=== PATIENT | male | born 1940 | race Caucasian/White ===

== ENCOUNTER 2016-12-31 10:32 | Inpatient (IN) | payer MEDICARE ==
--- NOTE | 2016-12-31 10:45 | ED Physician Chart ---
ED Chief Complaint/HPI - Patient Information Date Seen:: 12/31/16 Time Seen:: 10:30 Chief Complaint:: Fever History of Present Illness:: onset x 2 days of fever, irritability, cough, and congestion; no report of trauma, SIs; H/As, neck pain, C/P, SOB, Abd. Pain, A/N/V/D/C, chills, or urinary s/s Historian:: Patient, EMS Review:: Nurse's Note Reviewed, EMS run form Reviewed ED Review of Systems - Review of Systems General/Constitutional: Fever, Chills, No weight loss, No weakness, No diaphoresis, No edema, No loss of appetite Skin: No skin lesions, No rash, No bruising Head: No headache, No light-headedness Eyes: No loss of vision, No pain, No diplopia ENT: No earache, Nasal drainage, No sore throat, No tinnitus Neck: No neck pain, No swelling, No thyromegaly, No stiffness, No mass noted Cardio Vascular: No chest pain, No palpitations, No PND, No orthopnea, No edema Pulmonary: No SOB, Cough, No sputum, No wheezing GI: No nausea, No vomiting, No diarrhea, No pain, No melena, No hematochezia, No constipation, No hematemesis G/U: No dysuria, No frequency, No hematuria Musculoskeletal: No bone or joint pain, No back pain, No muscle pain Endocrine: No polyuria, No polydipsia Psychiatric: Prior psych history, Depression, Anxiety, No suicidal ideation, No homicidal ideation, No auditory hallucination, No visual hallucination Hematopoietic: No bruising, No lymphadenopathy Allergic/Immuno: No urticaria, No angioedema Neurological: No syncope, No focal symptoms, No weakness, No paresthesia, No headache, No seizure, No dizziness, No confusion, No vertigo ED Past Medical History - Past Medical History Obtainable: Yes Past Medical History: HTN, CAD, CVA/TIA, Dyslipidemia, Dementia Family History: Diabetes Melitus, HTN Social History: Non Smoker, No Alcohol, No Drug Use, Single, Care Facility Surgical History: None Psychiatricy History: Depression, Bipolar, Dementia Medication: Reviewed Family Medical History - Family Member Mother Living Status: ED Physical Exam - Physical Examination General/Constitutional: Awake, Well-developed, well-nourished, Alert, No distress, GCS 15, Non-toxic appearing, Ambulatory Head: Atraumatic Eyes: Lids, conjuctiva normal, PERRL, EOMI Skin: Nl inspection, No rash, No skin lesions, No ecchymosis, Well hydrated, No lymphadenopathy ENMT: External ears, nose nl, Nasal exam nl, Lips, teeth, gums nl Neck: Nontender, Full ROM w/o pain, No JVD, No nuchal rigidity, No bruit, No mass, No stridor Respiratory: Nl effort/Exclusion Other Respiratory comments:: Lungs: + Rales and Rhonchi Cardio Vascular: RRR, No murmur, gallop, rubs, NL S1 S2, Carotid/Femoral/Distal pulses equal bilaterally GI: No tenderness/rebounding/guarding, No organomegaly, No hernia, Normal BS's, Nondistended, No mass/bruits, No McBurney tenderness : No CVA tenderness Extremities: No tenderness or effusion, Full ROM, normal strength in all extremities, No edema, Normal digits & nails Neuro/Psych: Alert/oriented, DTR's symmetric, Normal sensory exam, Normal motor strength, Judgement/insight normal, Mood normal, Normal gait, No focal deficits Misc: Normal back, No paraspinal tenderness ED Labs/Radiology/EKG Results - Lab Results Comments:: H/H: 11.1/32.3; NA+: 129; BUN: 62; Cr:7.5; U/A: + Leukocytes - Radiology Results Comments:: CXR: + RML Infiltrate - EKG Interpretations EKG Time:: 10:53 Rate & Rhythm: 62; NSR Comments:: non-specific st-t changes ED Septic Shock - . Is Septic Shock (SBP<90, OR Lactate>4 mmol\L) present?: No ED Reassessment (Disposition) - Reassessment Reassessment Condition:: Improved - Diagnosis Diagnosis:: Dx: PNA; Fever; Sepsis; Anemia; Hyponatremia; Renal Failure; UTI - Aftercare/Follow up Instructions Aftercare/Follow-Up Instructions:: Counseled pt regarding lab results/diagnosis & need follow up, Counseled pt & family regarding lab results/diagnosis & need follow up - Patient Disposition Discharge/Transfer:: Acute Care w/in this hosp Accepting Physician:: Dr. Wiggins Time Called:: 1245 Time Responded:: 12:45 Admitted to:: Med/Surg Spoke to:: Dr. Wiggins Admitting Medical Physician:: Dr. Wiggins Condition at Disposition:: Stable, Improved
--- NOTE | 2016-12-31 11:04 | Diagnostic Imaging Report ---
Portable chest x-ray HISTORY: Pain The heart appears somewhat enlarged. Atherosclerotic calcification seen in the tortuous thoracic aorta. No acute focal pulmonary processes. Increased density in the paratracheal region of the chest is most likely related to brachiocephalic vessels. IMPRESSION: 1. No definite acute abnormalities 2. Cardiomegaly with atherosclerotic vascular changes
[2016-12-31] MEDS ORDERED: Levofloxacin 500mg/100mL 500 MG/100 ML BAG IV ONE ×2 (11:13→12:19)
[2016-12-31 11:17] LABS: % BASOPHILS 0.8 % (0.0-2.0); % LYMPHOCYTES 12.6 % (20.0-50.0); % MONOCYTES 10.2 % (2.0-10.0); % NEUTROPHILS 71.4 % (40.0-80.0); HEMATOCRIT 32.3 % (41.0-60); HEMOGLOBIN 11.1 gm/dL (12-16); MEAN CORPUSCULAR HEMOGLOBIN 31.3 pg (27.0-31.0); MEAN CORPUSCULAR HGB CONC 34.4 pg (28.0-36.0); MEAN PLATELET VOLUME 6.6 fl; NEUTROPHILE ABSOLUTE 5.1 Th/cmm (1.8-8.0); PLATELET COUNT 278 Th/cmm (150-400); RED BLOOD COUNT 3.55 Mil/cmm (3.80-5.80); RED CELL DISTRIBUTION WIDTH 12.2 % (11.5-20.0); WHITE BLOOD COUNT 7.2 Th/cmm (4.8-10.8)
[2016-12-31 11:32] LABS: INR 1.01 (0.5-1.4); PROTHROMBIN TIME (TEST) 10.5 SECONDS (9.5-11.5)
[2016-12-31 11:35] LABS: URINE BILIRUBIN NEGATIVE (NEGATIVE); URINE COLOR YELLOW; URINE GLUCOSE (UA) NEGATIVE (NEGATIVE)
[2016-12-31 11:35] LABS: ALB/GLOB RATIO 0.8 (1.0-1.8); ALKALINE PHOSPHATASE 116 U/L (34-104); ANION GAP 9.7 (7.0-16.0); BILIRUBIN,TOTAL 0.3 mg/dL (0.3-1.0); BUN - UREA NITROGEN 62 mg/dL (7-25); BUN/CREATININE RATIO 8.3; CALCIUM SERUM 9.6 mg/dL (8.6-10.3); CARBON DIOXIDE 19.2 mEq/L (21.0-31.0); CHLORIDE 105 mEq/L (98-107); CHOLESTEROL 110 mg/dL (<200); GLUCOSE 87 mg/dL (70-105); POTASSIUM SERUM 4.9 mEq/L (3.5-5.1); SGOT 9 U/L (13-39); SGPT/ALT 9 U/L (7-52); SODIUM SERUM 129 mEq/L (136-145); TRIGLYCERIDES 146 mg/dL (<150)
[2016-12-31 11:36] LABS: URINE BLOOD NEGATIVE (NEGATIVE); URINE KETONE NEGATIVE (NEGATIVE); URINE PH 5.5 (4.6 - 8.0); URINE PROTEIN 30 mg/dL (NEGATIVE); URINE UROBILINOGEN 0.2 E.U./dL (0.2 - 1.0)
[2016-12-31 11:39] LABS: URINE BACTERIA OCCASIONAL /hpf (NONE SEEN); URINE EPITHELIAL CELLS FEW /lpf (FEW); URINE RBC 0-2 /hpf (0-5)
[2016-12-31 11:41] LABS: CREATININE - SERUM 7.5 mg/dL (0.7-1.3)
[2016-12-31] MEDS: Sodium Chloride 0.9% 1,000 ML IV ONE ×2 (12:42→14:59)
[2016-12-31 13:48] VITALS: BP 154/101
[2016-12-31] MEDS ORDERED: Pneumococcal Vaccine 0.5 mL Vial IM ONE (13:59)
[2016-12-31] MEDS: Sodium Chloride 0.9% 1,000 ML IV SCH ×2 (15:01→22:15)
[2016-12-31] MEDS: INSULIN ASPART SLIDING SCALE 100 UNITS/ML UNIT SUBQ SCH ×2 (17:59→21:26)
[2017-01-01] MEDS: INSULIN ASPART SLIDING SCALE 100 UNITS/ML UNIT SUBQ SCH ×4 (08:00→22:06)
[2017-01-01] MEDS: Sodium Chloride 0.9% 1,000 ML IV SCH ×3 (08:00→22:05)
[2017-01-01] MEDS ORDERED: Pneumococcal Vaccine 0.5 mL Vial IM ONE (09:00)
[2017-01-01] MEDS: Atorvastatin Calcium 10 MG TAB PO SCH (10:03)
[2017-01-01] MEDS: Ferrous Sulfate 325 MG TAB PO SCH (10:03)
[2017-01-01] MEDS: Aspirin 81mg Chewable Tab PO SCH (10:03)
[2017-01-02] MEDS: Sodium Chloride 0.9% 1,000 ML IV SCH ×2 (06:03→19:02)
[2017-01-02 06:24] LABS: % EOSINOPHILS 4.9 % (0.0-5.0); % LYMPHOCYTES 14.2 % (20.0-50.0); % MONOCYTES 9.7 % (2.0-10.0); % NEUTROPHILS 70.2 % (40.0-80.0); HEMATOCRIT 29.4 % (41.0-60); HEMOGLOBIN 9.9 gm/dL (12-16); MEAN CELL VOLUME 92.4 fl (80-99); MEAN CORPUSCULAR HEMOGLOBIN 31.2 pg (27.0-31.0); MEAN CORPUSCULAR HGB CONC 33.8 pg (28.0-36.0); MEAN PLATELET VOLUME 6.3 fl; NEUTROPHILE ABSOLUTE 4.4 Th/cmm (1.8-8.0); PLATELET COUNT 228 Th/cmm (150-400); RED BLOOD COUNT 3.18 Mil/cmm (3.80-5.80); RED CELL DISTRIBUTION WIDTH 12.4 % (11.5-20.0); WHITE BLOOD COUNT 6.3 Th/cmm (4.8-10.8)
[2017-01-02 06:48] LABS: ALB/GLOB RATIO 0.9 (1.0-1.8); ALKALINE PHOSPHATASE 93 U/L (34-104); BILIRUBIN,TOTAL 0.3 mg/dL (0.3-1.0); BUN - UREA NITROGEN 59 mg/dL (7-25); BUN/CREATININE RATIO 8.3; CALCIUM SERUM 9.2 mg/dL (8.6-10.3); CHLORIDE 111 mEq/L (98-107); GLUCOSE 81 mg/dL (70-105); MAGNESIUM 1.8 mg/dL (1.9-2.7); PHOSPHOROUS 4.6 mg/dL (2.5-5.0); SGOT 7 U/L (13-39); SGPT/ALT 7 U/L (7-52)
[2017-01-02] MEDS: INSULIN ASPART SLIDING SCALE 100 UNITS/ML UNIT SUBQ SCH ×4 (06:50→21:14)
[2017-01-02 06:58] LABS: CREATININE - SERUM 7.1 mg/dL (0.7-1.3)
[2017-01-02 06:59] LABS: SODIUM SERUM 135 mEq/L (136-145)
[2017-01-02] MEDS: Ferrous Sulfate 325 MG TAB PO SCH (10:25)
[2017-01-02] MEDS: Atorvastatin Calcium 10 MG TAB PO SCH (10:28)
[2017-01-02] MEDS: Aspirin 81mg Chewable Tab PO SCH (10:28)
--- NOTE | 2017-01-02 14:24 | Consultation ---
DATE OF CONSULTATION: 01/01/2017 NEUROLOGY CONSULTATION HISTORY OF PRESENT ILLNESS: The patient is a 76-year-old. The patient is admitted because of complaints cough and congestion. Neurologically, the patient is having difficulty with swallowing. The patient with history of previous head injury. His baseline is that the patient has dysarthria. Confusion. Incontinence. The patient's right arm really ____, he has atrophy in the distal arm. Left arm, he is able to use. Legs are weak. He gets around with the wheelchair. He can ____ swallow, but they have difficulty with it. The patient has been complaining of cough and shortness of breath. PAST MEDICAL HISTORY: Hypertension, coronary artery disease, CVA in the past, dyslipidemia, and dementia. FAMILY HISTORY: Diabetes, hypertension. SURGERIES: None recently, he has a scar over the head. PSYCHIATRIC HISTORY: The patient with depression, bipolar, and dementia. MEDICATIONS: As per reconciliation. REVIEW OF SYSTEMS: Twelve-point negative except for above. PHYSICAL EXAMINATION: VITAL SIGNS: Temperature 98.4, blood pressure 130/70, pulse is 74. NECK: Supple. No neck bruits. HEART: Sounds S1 and S2. LUNGS: Clear. NEUROLOGIC: The patient is awake. The patient's caregiver is by the bedside. The patient gives me his name, his age. He did not know the day, he thought this was November instead of December. He does not know the year. The patient is able to name simple objects such as pen and glasses. CRANIAL: Pupils react. He sees on both sides. Face, I do not see any marked paralysis on one side or the other. Motor, really very limited movement of the right arm. Atrophy in the hand. The patient's left arm, he would lift it up, though increased tone. The patient's legs, he has got weakness in both legs, increased tone. Reflexes about 1+, somewhat more on the right arm. Knees are about -1-1. Ankles, difficult to get bilateral Babinski. ASSESSMENT: 1. Cough. Rule out underlying pneumonia. 2. Dysphagia. Recommend speech, swallowing assessment. 3. Urinary tract infection. The patient with previous impairment with cognitive impairment and physical disability with right arm nonfunctioning. The patient's leg weakness is longstanding. Wheelchair. PLAN: CT scan of the head. Swallowing assessment. [facility]# [id number]
--- NOTE | 2017-01-02 14:56 | General Progress Note ---
Subjective - Review of Systems Service Date: 01/02/17 Objective - Results Result Diagrams: 01/02/17 06:00 01/02/17 06:00 Recent Labs: Laboratory Last Values WBC 6.3 Th/cmm (4.8-10.8) 01/02/17 06:00 Corrected WBC (auto) Cancelled 01/02/17 06:00 RBC 3.18 Mil/cmm (3.80-5.80) L 01/02/17 06:00 Hgb 9.9 gm/dL (12-16) L 01/02/17 06:00 Hct 29.4 % (41.0-60) L 01/02/17 06:00 MCV 92.4 fl (80-99) 01/02/17 06:00 MCH 31.2 pg (27.0-31.0) H 01/02/17 06:00 MCHC Differential 33.8 pg (28.0-36.0) 01/02/17 06:00 RDW 12.4 % (11.5-20.0) 01/02/17 06:00 Plt Count 228 Th/cmm (150-400) 01/02/17 06:00 MPV 6.3 fl 01/02/17 06:00 Neutrophils % 70.2 % (40.0-80.0) 01/02/17 06:00 Lymphocytes % 14.2 % (20.0-50.0) L 01/02/17 06:00 Monocytes % 9.7 % (2.0-10.0) 01/02/17 06:00 Eosinophils % 4.9 % (0.0-5.0) 01/02/17 06:00 Basophils % 1.0 % (0.0-2.0) 01/02/17 06:00 Smear Path Review Cancelled 01/02/17 06:00 PT 10.5 SECONDS (9.5-11.5) 12/31/16 11:05 INR 1.01 (0.5-1.4) 12/31/16 11:05 PTT (Actin FS) 26.9 SECONDS (26.0-38.0) 12/31/16 11:05 Sodium 135 mEq/L (136-145) L 01/02/17 06:00 Potassium 5.0 mEq/L (3.5-5.1) 01/02/17 06:00 Chloride 111 mEq/L (98-107) H 01/02/17 06:00 Carbon Dioxide 17.0 mEq/L (21.0-31.0) L 01/02/17 06:00 Anion Gap 12.0 (7.0-16.0) 01/02/17 06:00 BUN 59 mg/dL (7-25) H 01/02/17 06:00 Creatinine 7.1 mg/dL (0.7-1.3) H* 01/02/17 06:00 Est GFR ( Amer) TNP 01/02/17 06:00 Est GFR (Non-Af Amer) TNP 01/02/17 06:00 BUN/Creatinine Ratio 8.3 01/02/17 06:00 Glucose 81 mg/dL (70-105) 01/02/17 06:00 POC Glucose 93 MG/DL (70 - 105) 01/02/17 12:07 Hemoglobin A1c % 5.2 % (4.0-6.0) 01/02/17 06:00 Whole Bld Lactic Acid 1.19 mmol/L (0.60-1.99) 12/31/16 11:05 Calcium 9.2 mg/dL (8.6-10.3) 01/02/17 06:00 Phosphorus 4.6 mg/dL (2.5-5.0) 01/02/17 06:00 Magnesium 1.8 mg/dL (1.9-2.7) L 01/02/17 06:00 Total Bilirubin 0.3 mg/dL (0.3-1.0) 01/02/17 06:00 AST 7 U/L (13-39) L 01/02/17 06:00 ALT 7 U/L (7-52) 01/02/17 06:00 Alkaline Phosphatase 93 U/L (34-104) 01/02/17 06:00 Creatine Kinase 38 U/L (30-223) 12/31/16 11:05 Troponin I 0.01 ng/mL (0.01-0.05) 12/31/16 11:05 B-Natriuretic Peptide 76.5 pg/mL (5.0-100.0) 12/31/16 11:05 Total Protein 6.2 gm/dL (6.0-8.3) 01/02/17 06:00 Albumin 2.9 gm/dL (4.2-5.5) L 01/02/17 06:00 Globulin 3.3 gm/dL 01/02/17 06:00 Albumin/Globulin Ratio 0.9 (1.0-1.8) L 01/02/17 06:00 Triglycerides 146 mg/dL (<150) 12/31/16 11:05 Cholesterol 110 mg/dL (<200) 12/31/16 11:05 LDL Cholesterol Direct 54 mg/dL (75-193) L 12/31/16 11:05 HDL Cholesterol 32 mg/dL (23-92) 12/31/16 11:05 Urine Source MIDSTREAM 12/31/16 11:25 Urine Color YELLOW 12/31/16 11:25 Urine Clarity CLEAR (CLEAR) 12/31/16 11:25 Urine pH 5.5 (4.6 - 8.0) 12/31/16 11:25 Ur Specific [place] 1.015 (1.005-1.030) 12/31/16 11:25 Urine Protein 30 mg/dL (NEGATIVE) H 12/31/16 11:25 Urine Glucose (UA) NEGATIVE mg/dL (NEGATIVE) 12/31/16 11:25 Urine Ketones NEGATIVE mg/dL (NEGATIVE) 12/31/16 11:25 Urine Blood NEGATIVE (NEGATIVE) 12/31/16 11:25 Urine Nitrate NEGATIVE (NEGATIVE) 12/31/16 11:25 Urine Bilirubin NEGATIVE (NEGATIVE) 12/31/16 11:25 Urine Ictotest NEGATIVE (NEGATIVE) 12/31/16 11:25 Urine Urobilinogen 0.2 E.U./dL (0.2 - 1.0) 12/31/16 11:25 Ur Leukocyte Esterase TRACE (NEGATIVE) H 12/31/16 11:25 Urine RBC 0-2 /hpf (0-5) H 12/31/16 11:25 Urine WBC 2-5 /hpf (0-5) H 12/31/16 11:25 Ur Epithelial Cells FEW /lpf (FEW) 12/31/16 11:25 Urine Bacteria OCCASIONAL /hpf (NONE SEEN) 12/31/16 11:25 Urine Mucus FEW /lpf (FEW) 12/31/16 11:25 - Physical Exam Vitals and I&O: Vital Signs Temp 96.9 F 11/10/17 12:28 Pulse 59 01/02/17 12:28 Resp 16 01/02/17 12:28 BP 154/82 01/02/17 12:28 Pulse Ox 98 01/02/17 12:28 Intake & Output 01/01/17 01/02/17 01/02/17 18:59 06:59 18:59 Intake Total 960 1002.083 Output Total 100 Balance 860 1002.083 Weight (lbs) 64.138 kg 64.127 kg Intake: Intake, IV Amount 1002.083 Sodium Chloride 0.9% 1, 1002.083 000 ml @ 125 mls/hr IV . Q8H [facility] Rx#:[id number] Oral 960 Output: Gastric Drainage 100 Other: # Voids 5 3 # Bowel Movements 1 Active Medications: Current Medications Aspirin (Aspirin Chewable) 81 mg PO DAILY [facility] Stop: 03/02/17 08:59 Last Admin: 01/02/17 10:28 Dose: 81 mg Atorvastatin Calcium (Lipitor) 10 mg PO DAILY [facility] PRN Reason: Protocol Stop: 03/02/17 08:59 Last Admin: 01/02/17 10:28 Dose: 10 mg Citalopram Hydrobromide (Celexa) 20 mg PO DAILY [facility] PRN Reason: Protocol Stop: 03/02/17 08:59 Last Admin: 01/02/17 10:28 Dose: 20 mg Donepezil HCl (Aricept) 5 mg PO DAILY [facility] Stop: 03/02/17 08:59 Last Admin: 01/02/17 10:25 Dose: 5 mg Ferrous Sulfate (Iron) 325 mg PO DAILY [facility] Stop: 03/02/17 08:59 Last Admin: 01/02/17 10:25 Dose: 325 mg Finasteride (Proscar) 5 mg PO DAILY [facility] PRN Reason: Protocol Stop: 03/02/17 08:59 Last Admin: 01/02/17 10:28 Dose: 5 mg Folic Acid (Folate) 1 mg PO DAILY [facility] Stop: 03/02/17 08:59 Last Admin: 01/02/17 10:25 Dose: 1 mg Sodium Chloride (Nacl 0.9%) 1,000 mls @ 125 mls/hr IV .Q8H [facility] Stop: 03/01/17 14:59 Last Infusion: 01/02/17 06:06 Dose: 125 mls/hr Insulin Aspart (Novolog Insulin Sliding Scale) 0 units SUBQ ACHS [facility] PRN Reason: Protocol Stop: 03/01/17 16:29 Last Admin: 01/02/17 12:10 Dose: Not Given Metoprolol Tartrate (Lopressor) 25 mg PO HS [facility] Stop: 03/01/17 20:59 Last Admin: 01/02/17 10:27 Dose: 25 mg Olanzapine (Zyprexa) 2.5 mg PO QPM [facility] PRN Reason: Protocol Stop: 03/02/17 16:59 Last Admin: 01/01/17 17:45 Dose: 2.5 mg Tamsulosin HCl (Flomax) 0.4 mg PO DAILY [facility] Stop: 03/02/17 08:59 Last Admin: 01/02/17 10:28 Dose: 0.4 mg General: Alert HEENT: PERRLA Neck: Supple Cardiovascular: Regular rate Abdomen: Bowel sounds, Soft Assessment/Plan - Plan Plan: ultrasound ordered yesterday not done yet await study result metabolic acidosis treated with sodium bicarbobnate yesterday Nutritional Asmnt/Malnutr-PDOC - Dietary Evaluation Malnutrition Findings (Please click <Entered> for more info): Nutritional Asmnt/Malnutrition Start: 01/01/17 17: 40 Text: Status: Complete Freq: Document 01/01/17 17:40 DALLIN (Rec: 01/01/17 17:55 DALLIN [id number]) Nutritional Asmnt/Malnutrition Patient General Information Nutritional Screening High Risk Diagnosis renal failure, hyponatremia Pertinent Medical Hx/Surgical Hx HTN, CAD, CVA/TIA, dyslipidemia, dementia Subjective Information pt seen alert, hard to communicate during the time of visit. pt reported appetite is good, comsumed 50% of breakfast this morning. Performed physical exam, no fat/muscle wasting noted. UBW 170lb, pt stated no wt loss noted. Per nurse notes, possible dialysis. Current Diet Order/ Nutrition Support low sodium 2 gm Pertinent Medications Iron, Folate, novolog, Nacl IV , Pertinent Labs POC 82-95 since adm 12/31: Na 129L, BUN 62H, Cr 7. 5H, AST 9L, Alb 3.5L Nutritional Hx/Data Height 1.75 m Height (Calculated Centimeters) 175.3 Current Weight (lbs) 64.138 kg Weight (Calculated Kilograms) 64.1 Weight (Calculated Grams) 16389.0 Usual body Weight (lbs) 170 % Usual Body Weight 83 [place] Body Weight 160 % [place] Body Weight 88 Body Mass Index (BMI) 20.8 Weight Status Approriate GI Symptoms GI Symptoms None Difficult in: None Usual diet at home pt stated he eats outside food , he eats vegetables, dairy products and meat. Skin Integrity/Comment: intact Estimated Nutritional Goals Calories/Kcals/Kg 25-30 based on IBW Kcals Calculated 3543-0917 Protein g/k.8 based on IBW, monitor renal labs Protein Calculated 58 Nutritional Problem 1. Problem Problem altered nutrition related lab values Etiology dx of renal failure, possible need for dialysis Signs/Symptoms: BUN 62H, Cr 7.5H Malnutrition Alert Protein-Calorie Malnutrition N/A Is there a minimum of two criteria No selected? Query Text:Check all the applicable criteria. A minimum of two criteria are recommended for diagnosis of either severe or non-severe malnutrition. Intervention/Recommendation Comments 1. continue with current diet order. if renal labs not improved and pt not on dialysis, will consider change to renal diet. 2. monitor PO intake, wt weekly, labs, skin 3. F/U as high risk in 2-3 days, 01/03-01/04 Expected Outcomes/Goals Expected Outcomes/Goals 1. PO intake >75% to meet nutrition needs 2. labs to improve 3. wt stability, skin to remain intact
--- NOTE | 2017-01-02 15:29 | Diagnostic Imaging Report ---
Head CT without intravenous contrast Indication: CVA Comparison: None Technique: Axial images were obtained from the vertex to the skull base without IV contrast. Coronal reconstructions were made. Total DLP: 774, CTDI41 FINDINGS: Images of the brain obtained without contrast demonstrate no evidence of an acute hemorrhage. Moderate supratentorial white matter disease is noted greatest within the periventricular regions. Old lacunar infarct of the left basal ganglia is noted. The ventricles and basal cisterns are patent. No mass effect or midline shift. Atherosclerosis is noted. Small mucous retention cysts versus polyps of the maxillary sinuses are noted. IMPRESSION: No evidence of acute intracranial hemorrhage. Moderate supratentorial white matter disease which is nonspecific and may be due to chronic microvessel ischemia. Old lacunar infarct of the left basal ganglia is noted. If there is continued clinical concern for acute CVA, MRI may be obtained for further assessment. Atrophy. Atherosclerotic vascular disease. Mild sinus disease.
--- NOTE | 2017-01-02 16:21 | Consultation ---
DATE OF CONSULTATION: 01/01/2017 JUSTIFICATION FOR ADMISSION: Psych eval. HISTORY OF PRESENT ILLNESS: A 76-year-old male noted to have a fever, irritability, cough, constipation. On [id number], AO to name, place. He has a general idea why he is here, he knows the month, the year, but not the date. Denies depression. Does have some anxiety about being in the hospital. He is upset because he is in the hospital. Okay sleep, okay appetite. States he is hopefully wants to get better and wants to leave soon. PAST PSYCHIATRIC HISTORY: Denies suicide history. FAMILY HISTORY: Noncontributory. SOCIAL HISTORY: Living in a [facility]. He has a girlfriend. Not , no kids, no drugs. He states he lives in [place]. MEDICATIONS: Reviewed. MENTAL STATUS EXAMINATION: Stated age. Fair eye contact. Speech within normal limits, somewhat slowed. Mood colon "okay." Affect flat. Thought processes were grossly linear and engaged, but slowed. No SI, no HI, no psychotic symptoms. Insight and judgment seem reasonable. PROVISIONAL DIAGNOSIS: Adjustment disorder with depressed mood, anxiety, dementia per documentation, he is somewhat slow to respond, but fairly well oriented to name, place, situation, year, month. This dementia diagnosis will need to be further confirmed. Recommend further testing. Under medical, please see full H and P. RECOMMENDATIONS AND PLAN: Continue to monitor and follow up. The patient is fairly stable, pleasant, and engaged. There may be a history of mood disorder as well as behaviors, associated with his dementia diagnosis. He is on Aricept, a low dose of Zyprexa, and Celexa, although the patient is denying any overt depressive symptoms at this time. No 5150 criteria. JOB# [id number]
--- NOTE | 2017-01-02 16:47 | History & Physical ---
ADMIT DATE: 12/31/[address] Wiggins. CHIEF COMPLAINT: Fever. HISTORY OF PRESENT ILLNESS: This is a 76-year-old male who was brought here to [facility] for 2-day history of fever and productive cough associated with congestion. The patient is now admitted to the med/surg unit. PAST MEDICAL HISTORY: Hypertension, CAD, CVA, TIA, dyslipidemia, and dementia. SOCIAL HISTORY: The patient is a skilled nursing resident. MEDICATIONS: Please see medication reconciliation. REVIEW OF SYSTEMS: Unable to obtain. PHYSICAL EXAMINATION: GENERAL: The patient is well developed, well nourished, in no acute distress. VITAL SIGNS: Temperature 96.9, heart rate 59, blood pressure 154/82, respirations 16, O2 98%. HEENT: Head: Normocephalic, atraumatic. NECK: Supple. No mass. LUNGS: Clear bilaterally. HEART: Regular rhythm. ABDOMEN: Soft, nontender. LABORATORY DATA: WBC 6.3, H and H 10.9 and 29.4, platelets of 228. Sodium 135, potassium 5.0, chloride 111, carbon dioxide 17.0, BUN 59, creatinine 7.1. Albumin of 2.9. ASSESSMENT: Hyponatremia, acute renal failure, severe protein-calorie malnutrition, acute urinary tract infection, hypertension, coronary artery disease, history of cerebrovascular accident, dyslipidemia, and dementia. PLAN: The patient to be admitted to the med/surg unit. We will get Neurology on the case. We will get speech evaluation. We will get ultrasound of the renal. We will also get Nephrology on the case. We will continue to monitor this patient. JOB# [id number]
[2017-01-03] MEDS: Sodium Chloride 0.9% 1,000 ML IV SCH ×2 (03:16→11:35)
--- NOTE | 2017-01-03 04:09 | Consultation ---
DATE OF CONSULTATION: 01/02/2017 IDENTIFYING INFORMATION: The patient is a 76-year-old male. HISTORY OF PRESENT ILLNESS: The patient was admitted because of irritability. According to the records, he has been irritable, but no reports of trauma. No suicidal ideation, no homicidal ideation. When I talked to him, he was confused. He is unable to tell me the date. He believes he is 78 years of age. He denies any substance abuse. The patient also has a fever. PAST PSYCHIATRIC HISTORY: The patient denies any prior psychiatric treatment. He denies any prior suicide attempt. He denies ever seeing a psychiatrist or any depression. MEDICAL HISTORY: As per medical doctor. The patient has a history of hypertension, coronary artery disease, CVA, TIA, dyslipidemia, dementia, hypertension, with family history of diabetes mellitus and hypertension. FAMILY AND SOCIAL HISTORY: The patient is . He has no children. 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 Unable to give me more exact details. He reports no family psychotic disorder; however, is not a reliable historian. MENTAL STATUS EXAMINATION: Appropriately dressed, not very well groomed. His affect is constricted. His thoughts are concrete. His speech is clear. He is oriented to person, but he believes he is 78 when he is 76, unable to tell me the date. He is not sure exactly why he is here. His long-term memory is okay, remembers his age. Recent memory, he is not sure why he is here. Apparently, he has a history of depression, being on Celexa, his insight and judgment. He denies any intent to harm self or anybody. Denies any hallucination or paranoia. Insight and judgment is impaired. IMPRESSION: AXIS I: Depression, also mood disorder, not otherwise specified, dementia. MEDICAL DIAGNOSES: Deferred to the medical doctor. Recommend to continue the Celexa, Aricept. The patient also was on Remeron 15 that was discontinued and Zyprexa 2.5 mg at bedtime. I would recommend that he continue his medication, will adjust medication as needed. Thank you very much for allowing me to participate in the care of this most interesting gentleman. JOB# [id number]
--- NOTE | 2017-01-03 05:42 | Consultation ---
DATE OF CONSULTATION: 01/01/2017 RENAL CONSULTATION NOTE HISTORY OF PRESENT ILLNESS: This is a 76-year-old male who is a resident of assisted living facility, was subsequently sent to the Emergency Room because of fever of 2 days duration with episodes of coughing. This episode started approximately 2 days ago and becoming more ____ with fever, becoming more irritable coughing and congestion. There is no report on history of chills or urinary symptoms other than urinary frequency and urgency, weak urinary hesitancy and incontinence. He was seen in the Emergency Room. Impression on evaluation in the Emergency Room is pneumonia, fever, sepsis, anemia, hyponatremia and renal failure. Thus the patient was subsequently admitted and referred here for consultation. PAST MEDICAL HISTORY: He had a history of hypertension, coronary artery disease, previous CVA with bulbar symptoms, transient ischemic attack, dyslipidemia, diabetes, and dementia with bipolar disorder. Unclear about the history or the duration of hypertension in this patient, although we are aware that this patient is on medications for his blood pressure in the form of metoprolol 25 mg once daily. He is also on tamsulosin 0.4 mg capsule twice daily, atorvastatin 10 mg daily, citalopram (Celexa) 20 mg daily, olanzapine 2.5 mg daily, and pantoprazole 40 mg 1 tablet daily. Rest of the medications are sleeping pill with Remeron 15 mg, aspirin 81 mg daily and folic acid 1 mg daily, and ferrous sulfate 325 mg 2 times a day. He is on dietary restrictions with regards to his diabetes. He is not taking any medications or oral hypoglycemics or he is not taking any kind of insulin administration. Diabetes is adequately controlled with diet at the present time. LABORATORY DATA: Laboratories are reviewed. His white blood cell count of 7200, hemoglobin 11.2, hematocrit of 32.3, and platelet count of 276,000. PT and INR are within normal range. BUN of this patient is 62, creatinine of 7.5. Sodium 129, potassium 4.9, chloride is 105, CO2 of 19.2, anion gap of 9.7. His glucose is 87 which has been persistently 80s and 90s below. Calcium is 9.6, total bilirubin is 0.3 with AST of 9, alkaline phosphatase of 116, and CK of 38. Troponins are negative. BNP is 76.5. Total protein 7.7, albumin is 3.5, and globulin is 4.2. Triglycerides and cholesterol are normal. HDL is relatively lower at 32. IMPRESSION: Renal failure in this patient, unclear, chronic or acute, although there is a history of this patient having renal insufficiency documenting from one dictation of this patient on this hospital admission. The patient also admits that he has been mentioned to have some degree of renal insufficiency in the past. His serum creatinine is elevated at this point, significantly ____ of 6.6 and 7.5 with a BUN of 62, sodium 129, potassium 4.9, chloride of 105, CO2 of 19. 2. Rule out possibility of obstructive uropathy with the patient having symptoms and been on medications for prostatic enlargement issue. 3. Anemia of chronic kidney disease. 4. Hypoalbuminemia. 5. Malnutrition. 6. Chronic anemia, most recent hemoglobin and hematocrit of 11.1 and 32.3. PLAN: At this time, we will get phosphate and magnesium in this patient. Albumin and creatinine ratio in the urine. Random urinary albumin in this patient. We will have renal ultrasound ruling out the possibility of obstructive uropathy and depending on the results of further studies at the present time, we will discuss plan of care with the family and the patient subsequently. The patient states that he has an uncle who is living with him which I am not sure at this point because the next of kin ____ the present time is an store administrator of the facility that this patient is staying, Chantal Grimaldo #[phone]. We will verify the durable power of bankruptcy attorney ____ this patient during this hospital stay. JOB# [id number]
[2017-01-03 06:47] LABS: ANION GAP 12.2 (7.0-16.0); BUN - UREA NITROGEN 55 mg/dL (7-25); BUN/CREATININE RATIO 8.1; CALCIUM SERUM 8.7 mg/dL (8.6-10.3); CARBON DIOXIDE 14.9 mEq/L (21.0-31.0); CHLORIDE 116 mEq/L (98-107); GLUCOSE 71 mg/dL (70-105); POTASSIUM SERUM 5.1 mEq/L (3.5-5.1); SODIUM SERUM 138 mEq/L (136-145)
[2017-01-03 08:08] LABS: IRON SATURATION 40 % (15-55); TIBC (LC) 151 ug/dL (250-450); UIBC 91 ug/dL (111-343)
[2017-01-03 08:20] LABS: CREATININE - SERUM 6.8 mg/dL (0.7-1.3)
--- NOTE | 2017-01-03 08:27 | Diagnostic Imaging Report ---
Exam: Renal ultrasound. HISTORY obstructive uropathy. Findings: Real-time ultrasound examination of the kidneys performed multiple planes. Right kidney measures 12.1 x 6 x 5.2 cm diameter with the mild hydronephrosis. There is a questionable hypoechoic structure in the right renal pelvis. CT examination recommended. Left kidney measures 10.0 x 5.4 x 6 cm diameter contains a 4.4 cm left upper renal pole cyst. There is no evidence of obstructive uropathy or nephrolithiasis. Urinary bladder is contracted. IMPRESSION: 1. Extremely limited examination due to patient inability to cooperate. 2. Hydronephrosis of right kidney with a question of hypoechoic structure in the right renal pelvis. 3. Left upper renal pole cyst measuring 4.[address] examination of the abdomen is recommended.
[2017-01-03] MEDS: Ferrous Sulfate 325 MG TAB PO SCH (08:44)
[2017-01-03] MEDS: Atorvastatin Calcium 10 MG TAB PO SCH (08:44)
[2017-01-03] MEDS: Aspirin 81mg Chewable Tab PO SCH (08:44)
[2017-01-03] MEDS: INSULIN ASPART SLIDING SCALE 100 UNITS/ML UNIT SUBQ SCH ×4 (08:46→21:16)
--- NOTE | 2017-01-03 09:02 | Progress Notes ---
DATE: 01/02/2017 NEUROLOGY PROGRESS NOTE SUBJECTIVE: The patient in bed. Awake, alert, and talking more. The patient is interacting more. No seizure. Cough is somewhat less. Swallowing bit better. OBJECTIVE: VITAL SIGNS: Temperature 98.4, blood pressure 130/70, and pulse 74. NECK: Supple. No neck bruits. HEART: Sounds S1 and S2. LUNGS: Clear. NEUROLOGIC: Awake. Dysarthria. On and off dysphagia. INVESTIGATIONS: The patient's CT scan of the head is pending. ASSESSMENT: 1. Dysphagia. 2. Cough. 3. The patient's history of possible pneumonia. 4. Hypernatremia. 5. Urinary tract infection. PLAN: CT scan of the head. Further workup depending on the progress. JOB# [id number]
[2017-01-03] MEDS ORDERED: Sodium Chloride 0.45% 1,000 ML IV SCH (17:45)
--- NOTE | 2017-01-03 17:56 | General Progress Note ---
Subjective - Review of Systems Service Date: 01/03/17 Events since last encounter: continued urine urgency but generating urine no complaints Objective - Results Result Diagrams: 01/02/17 06:00 01/03/17 06:05 Recent Labs: Laboratory Last Values WBC 6.3 Th/cmm (4.8-10.8) 01/02/17 06:00 Corrected WBC (auto) Cancelled 01/02/17 06:00 RBC 3.18 Mil/cmm (3.80-5.80) L 01/02/17 06:00 Hgb 9.9 gm/dL (12-16) L 01/02/17 06:00 Hct 29.4 % (41.0-60) L 01/02/17 06:00 MCV 92.4 fl (80-99) 01/02/17 06:00 MCH 31.2 pg (27.0-31.0) H 01/02/17 06:00 MCHC Differential 33.8 pg (28.0-36.0) 01/02/17 06:00 RDW 12.4 % (11.5-20.0) 01/02/17 06:00 Plt Count 228 Th/cmm (150-400) 01/02/17 06:00 MPV 6.3 fl 01/02/17 06:00 Neutrophils % 70.2 % (40.0-80.0) 01/02/17 06:00 Lymphocytes % 14.2 % (20.0-50.0) L 01/02/17 06:00 Monocytes % 9.7 % (2.0-10.0) 01/02/17 06:00 Eosinophils % 4.9 % (0.0-5.0) 01/02/17 06:00 Basophils % 1.0 % (0.0-2.0) 01/02/17 06:00 Smear Path Review Cancelled 01/02/17 06:00 PT 10.5 SECONDS (9.5-11.5) 12/31/16 11:05 INR 1.01 (0.5-1.4) 12/31/16 11:05 PTT (Actin FS) 26.9 SECONDS (26.0-38.0) 12/31/16 11:05 Sodium 138 mEq/L (136-145) 01/03/17 06:05 Potassium 5.1 mEq/L (3.5-5.1) 01/03/17 06:05 Chloride 116 mEq/L (98-107) H 01/03/17 06:05 Carbon Dioxide 14.9 mEq/L (21.0-31.0) L 01/03/17 06:05 Anion Gap 12.2 (7.0-16.0) 01/03/17 06:05 BUN 55 mg/dL (7-25) H 01/03/17 06:05 Creatinine 6.8 mg/dL (0.7-1.3) H* 01/03/17 06:05 Est GFR ( Amer) TNP 01/03/17 06:05 Est GFR (Non-Af Amer) TNP 01/03/17 06:05 BUN/Creatinine Ratio 8.1 01/03/17 06:05 Glucose 71 mg/dL (70-105) 01/03/17 06:05 POC Glucose 81 MG/DL (70 - 105) 01/03/17 16:27 Hemoglobin A1c % 5.2 % (4.0-6.0) 01/02/17 06:00 Whole Bld Lactic Acid 1.19 mmol/L (0.60-1.99) 12/31/16 11:05 Calcium 8.7 mg/dL (8.6-10.3) 01/03/17 06:05 Phosphorus 4.6 mg/dL (2.5-5.0) 01/02/17 06:00 Magnesium 1.8 mg/dL (1.9-2.7) L 01/02/17 06:00 Iron 60 ug/dL (38-169) 01/02/17 06:00 TIBC 151 ug/dL (250-450) L 01/02/17 06:00 Iron Saturation 40 % (15-55) 01/02/17 06:00 Unsaturated IBC 91 ug/dL (111-343) L 01/02/17 06:00 Total Bilirubin 0.3 mg/dL (0.3-1.0) 01/02/17 06:00 AST 7 U/L (13-39) L 01/02/17 06:00 ALT 7 U/L (7-52) 01/02/17 06:00 Alkaline Phosphatase 93 U/L (34-104) 01/02/17 06:00 Creatine Kinase 38 U/L (30-223) 12/31/16 11:05 Troponin I 0.01 ng/mL (0.01-0.05) 12/31/16 11:05 B-Natriuretic Peptide 76.5 pg/mL (5.0-100.0) 12/31/16 11:05 Total Protein 6.2 gm/dL (6.0-8.3) 01/02/17 06:00 Albumin 2.9 gm/dL (4.2-5.5) L 01/02/17 06:00 Globulin 3.3 gm/dL 01/02/17 06:00 Albumin/Globulin Ratio 0.9 (1.0-1.8) L 01/02/17 06:00 Triglycerides 146 mg/dL (<150) 12/31/16 11:05 Cholesterol 110 mg/dL (<200) 12/31/16 11:05 LDL Cholesterol Direct 54 mg/dL (75-193) L 12/31/16 11:05 HDL Cholesterol 32 mg/dL (23-92) 12/31/16 11:05 Urine Source MIDSTREAM 12/31/16 11:25 Urine Color YELLOW 12/31/16 11:25 Urine Clarity CLEAR (CLEAR) 12/31/16 11:25 Urine pH 5.5 (4.6 - 8.0) 12/31/16 11:25 Ur Specific [place] 1.015 (1.005-1.030) 12/31/16 11:25 Urine Protein 30 mg/dL (NEGATIVE) H 12/31/16 11:25 Urine Glucose (UA) NEGATIVE mg/dL (NEGATIVE) 12/31/16 11:25 Urine Ketones NEGATIVE mg/dL (NEGATIVE) 12/31/16 11:25 Urine Blood NEGATIVE (NEGATIVE) 12/31/16 11:25 Urine Nitrate NEGATIVE (NEGATIVE) 12/31/16 11:25 Urine Bilirubin NEGATIVE (NEGATIVE) 12/31/16 11:25 Urine Ictotest NEGATIVE (NEGATIVE) 12/31/16 11:25 Urine Urobilinogen 0.2 E.U./dL (0.2 - 1.0) 12/31/16 11:25 Ur Leukocyte Esterase TRACE (NEGATIVE) H 12/31/16 11:25 Urine RBC 0-2 /hpf (0-5) H 12/31/16 11:25 Urine WBC 2-5 /hpf (0-5) H 12/31/16 11:25 Ur Epithelial Cells FEW /lpf (FEW) 12/31/16 11:25 Urine Bacteria OCCASIONAL /hpf (NONE SEEN) 12/31/16 11:25 Urine Mucus FEW /lpf (FEW) 12/31/16 11:25 - Physical Exam Vitals and I&O: Vital Signs Temp 97.4 F 01/03/17 15:49 Pulse 61 01/03/17 15:49 Resp 18 01/03/17 15:49 BP 104/69 01/03/17 15:49 Pulse Ox 97 01/03/17 15:49 Intake & Output 01/02/17 01/03/17 01/03/17 18:59 06:59 18:59 Intake Total 993.75 1250 1000 Balance 993.75 1250 1000 Weight (lbs) 63.73 kg Intake: Intake, IV Amount 993.75 1000 1000 Sodium Chloride 0.9% 1, 993.75 1000 1000 000 ml @ 125 mls/hr IV . Q8H [facility] Rx#:[id number] Oral 250 Other: Stool Characteristics Soft Soft Formed Active Medications: Current Medications Aspirin (Aspirin Chewable) 81 mg PO DAILY [facility] Stop: 03/02/17 08:59 Last Admin: 01/03/17 08:44 Dose: 81 mg Atorvastatin Calcium (Lipitor) 10 mg PO DAILY [facility] PRN Reason: Protocol Stop: 03/02/17 08:59 Last Admin: 01/03/17 08:44 Dose: 10 mg Citalopram Hydrobromide (Celexa) 20 mg PO DAILY [facility] PRN Reason: Protocol Stop: 03/02/17 08:59 Last Admin: 01/03/17 08:44 Dose: 20 mg Donepezil HCl (Aricept) 5 mg PO DAILY [facility] Stop: 03/02/17 08:59 Last Admin: 01/03/17 08:43 Dose: 5 mg Ferrous Sulfate (Iron) 325 mg PO DAILY [facility] Stop: 03/02/17 08:59 Last Admin: 01/03/17 08:44 Dose: 325 mg Finasteride (Proscar) 5 mg PO DAILY [facility] PRN Reason: Protocol Stop: 03/02/17 08:59 Last Admin: 01/03/17 08:43 Dose: 5 mg Folic Acid (Folate) 1 mg PO DAILY [facility] Stop: 03/02/17 08:59 Last Admin: 01/03/17 08:43 Dose: 1 mg Sodium Chloride (Nacl 0.9%) 1,000 mls @ 125 mls/hr IV .Q8H [facility] Stop: 03/01/17 14:59 Last Admin: 01/03/17 11:35 Dose: 125 mls/hr Sodium Chloride (Nacl 0.45%) 1,000 mls @ 125 mls/hr IV .Q8H [facility] Stop: 03/04/17 17:44 Sodium Bicarbonate 50 meq/ (Sodium Chloride) 1,050 mls @ 125 mls/hr IV .Q8H24M [facility] Stop: 03/04/17 17:59 Insulin Aspart (Novolog Insulin Sliding Scale) 0 units SUBQ ACHS [facility] PRN Reason: Protocol Stop: 03/01/17 16:29 Last Admin: 01/03/17 16:30 Dose: Not Given Metoprolol Tartrate (Lopressor) 25 mg PO HS [facility] Stop: 03/01/17 20:59 Last Admin: 01/02/17 21:13 Dose: 25 mg Olanzapine (Zyprexa) 2.5 mg PO QPM [facility] PRN Reason: Protocol Stop: 03/02/17 16:59 Last Admin: 01/03/17 16:51 Dose: 2.5 mg Tamsulosin HCl (Flomax) 0.4 mg PO DAILY [facility] Stop: 03/02/17 08:59 Last Admin: 01/03/17 08:43 Dose: 0.4 mg General: Alert HEENT: PERRLA Neck: Supple Cardiovascular: Regular rate Lungs: Clear to auscultation Abdomen: Bowel sounds, Soft Assessment/Plan - Problem List Patient Problems: All Active Problems right sided partial obastruction (Acute) - Plan Plan: ultrasound right hydro looks like partial metabolic acidosis ? etiolofy hypercloremic no documented diarrhea iv nabicarb 125 cc with 1/2 nss recheck chem tomorrow etilogy of right side hydro ? stone uric acid mor calcium Nutritional Asmnt/Malnutr-PDOC - Dietary Evaluation Malnutrition Findings (Please click <Entered> for more info): Nutritional Asmnt/Malnutrition Start: 01/01/17 17: 40 Text: Status: Complete Freq: Document 01/01/17 17:40 CARMEN (Rec: 01/01/17 17:55 [facility] [id number]) Nutritional Asmnt/Malnutrition Patient General Information Nutritional Screening High Risk Diagnosis renal failure, hyponatremia Pertinent Medical Hx/Surgical Hx HTN, CAD, CVA/TIA, dyslipidemia, dementia Subjective Information pt seen alert, hard to communicate during the time of visit. pt reported appetite is good, comsumed 50% of breakfast this morning. Performed physical exam, no fat/muscle wasting noted. UBW 170lb, pt stated no wt loss noted. Per nurse notes, possible dialysis. Current Diet Order/ Nutrition Support low sodium 2 gm Pertinent Medications Iron, Folate, novolog, Nacl IV , Pertinent Labs POC 82-95 since adm 12/31: Na 129L, BUN 62H, Cr 7. 5H, AST 9L, Alb 3.5L Nutritional Hx/Data Height 1.75 m Height (Calculated Centimeters) 175.3 Current Weight (lbs) 64.138 kg Weight (Calculated Kilograms) 64.1 Weight (Calculated Grams) 27401.0 Usual body Weight (lbs) 170 % Usual Body Weight 83 [place] Body Weight 160 % [place] Body Weight 88 Body Mass Index (BMI) 20.8 Weight Status Approriate GI Symptoms GI Symptoms None Difficult in: None Usual diet at home pt stated he eats outside food , he eats vegetables, dairy products and meat. Skin Integrity/Comment: intact Estimated Nutritional Goals Calories/Kcals/Kg 25-30 based on IBW Kcals Calculated 3173-2481 Protein g/k.8 based on IBW, monitor renal labs Protein Calculated 58 Nutritional Problem 1. Problem Problem altered nutrition related lab values Etiology dx of renal failure, possible need for dialysis Signs/Symptoms: BUN 62H, Cr 7.5H Malnutrition Alert Protein-Calorie Malnutrition N/A Is there a minimum of two criteria No selected? Query Text:Check all the applicable criteria. A minimum of two criteria are recommended for diagnosis of either severe or non-severe malnutrition. Intervention/Recommendation Comments 1. continue with current diet order. if renal labs not improved and pt not on dialysis, will consider change to renal diet. 2. monitor PO intake, wt weekly, labs, skin 3. F/U as high risk in 2-3 days, 01/03-01/04 Expected Outcomes/Goals Expected Outcomes/Goals 1. PO intake >75% to meet nutrition needs 2. labs to improve 3. wt stability, skin to remain intact
[2017-01-03] MEDS ORDERED: Sodium Bicarbonate 8.4% 50mEq Vial ONE (18:30)
--- NOTE | 2017-01-04 01:58 | Progress Notes ---
DATE: 01/03/2017 SUBJECTIVE: The patient was seen in his room, lying in the bed. The patient is awake, alert, oriented with episodes of confusion, but otherwise denies any pain or discomfort. The patient is in no acute distress. OBJECTIVE: VITAL SIGNS: Temperature 97.9, heart rate of 68, blood pressure 135/65, respirations of 20, and 96% on room air. HEENT: Head is atraumatic and normocephalic. Eyes, bilateral conjunctivae are clear. Pupils equally round and reactive. NECK: Supple. No JVD. CARDIOVASCULAR: S1 and S2, without murmur. PULMONARY: Clear to auscultation. GASTROINTESTINAL: Soft and nontender without guarding. Positive bowel sounds. MUSCULOSKELETAL: No clubbing, no cyanosis noted. ASSESSMENT: 1. Acute renal failure. 2. Acute urinary tract infection. 3. Dementia. 4. Hypertension. 5. Coronary artery disease. 6. Hyperlipidemia. 7. History of cerebrovascular accident. PLAN: We will continue to monitor the patient's condition. We will follow up with the network and threat support specialist to monitor the patient's renal status. Treatment plans were discussed with the patient's nurse. Treatment plans were discussed with Dr. Wiggins. JOB# [id number]
[2017-01-04] MEDS ORDERED: Sodium Bicarbonate 8.4% 50mEq PFS IVP ONE (02:28)
--- NOTE | 2017-01-04 02:53 | Progress Notes ---
DATE: 01/03/2017 Case was discussed with staff of the patient, reviewed records. The patient continues to be confused, continues to be unable to tell me where he lived. He apparently was living in a detention. History of CVA, TIA, dementia. Unpredictable and impulsive. He has no clue about why he is here, unable to make safe plan for self-care with episodes of agitation, irritability. He has been compliant with the medication with no side effects. He is on Zyprexa 2.5 mg in the evening, Aricept 5 mg at bedtime, Lexapro 20 mg a day. Thank you very much for allowing me to participate in the care of this most interesting gentleman. JOB# [id number]
[2017-01-04 05:29] LABS: ANION GAP 9.8 (7.0-16.0); BUN - UREA NITROGEN 52 mg/dL (7-25); BUN/CREATININE RATIO 7.9; CALCIUM SERUM 8.5 mg/dL (8.6-10.3); CARBON DIOXIDE 19.2 mEq/L (21.0-31.0); CHLORIDE 113 mEq/L (98-107); GLUCOSE 77 mg/dL (70-105)
[2017-01-04 06:45] LABS: CREATININE - SERUM 6.6 mg/dL (0.7-1.3)
[2017-01-04] MEDS: INSULIN ASPART SLIDING SCALE 100 UNITS/ML UNIT SUBQ SCH ×4 (06:56→21:26)
[2017-01-04] MEDS: Aspirin 81mg Chewable Tab PO SCH (08:37)
[2017-01-04] MEDS: Ferrous Sulfate 325 MG TAB PO SCH (08:38)
[2017-01-04] MEDS: Atorvastatin Calcium 10 MG TAB PO SCH (08:38)
--- NOTE | 2017-01-04 10:42 | General Progress Note ---
Subjective - Review of Systems Events since last encounter: no distress denies pain Objective - Results Result Diagrams: 01/02/17 06:00 01/04/17 04:45 Recent Labs: Laboratory Last Values WBC 6.3 Th/cmm (4.8-10.8) 01/02/17 06:00 Corrected WBC (auto) Cancelled 01/02/17 06:00 RBC 3.18 Mil/cmm (3.80-5.80) L 01/02/17 06:00 Hgb 9.9 gm/dL (12-16) L 01/02/17 06:00 Hct 29.4 % (41.0-60) L 01/02/17 06:00 MCV 92.4 fl (80-99) 01/02/17 06:00 MCH 31.2 pg (27.0-31.0) H 01/02/17 06:00 MCHC Differential 33.8 pg (28.0-36.0) 01/02/17 06:00 RDW 12.4 % (11.5-20.0) 01/02/17 06:00 Plt Count 228 Th/cmm (150-400) 01/02/17 06:00 MPV 6.3 fl 01/02/17 06:00 Neutrophils % 70.2 % (40.0-80.0) 01/02/17 06:00 Lymphocytes % 14.2 % (20.0-50.0) L 01/02/17 06:00 Monocytes % 9.7 % (2.0-10.0) 01/02/17 06:00 Eosinophils % 4.9 % (0.0-5.0) 01/02/17 06:00 Basophils % 1.0 % (0.0-2.0) 01/02/17 06:00 Smear Path Review Cancelled 01/02/17 06:00 PT 10.5 SECONDS (9.5-11.5) 12/31/16 11:05 INR 1.01 (0.5-1.4) 12/31/16 11:05 PTT (Actin FS) 26.9 SECONDS (26.0-38.0) 12/31/16 11:05 Sodium 137 mEq/L (136-145) 01/04/17 04:45 Potassium 5.0 mEq/L (3.5-5.1) 01/04/17 04:45 Chloride 113 mEq/L (98-107) H 01/04/17 04:45 Carbon Dioxide 19.2 mEq/L (21.0-31.0) L 01/04/17 04:45 Anion Gap 9.8 (7.0-16.0) 01/04/17 04:45 BUN 52 mg/dL (7-25) H 01/04/17 04:45 Creatinine 6.6 mg/dL (0.7-1.3) H* 01/04/17 04:45 Est GFR ( Amer) TNP 01/04/17 04:45 Est GFR (Non-Af Amer) TNP 01/04/17 04:45 BUN/Creatinine Ratio 7.9 01/04/17 04:45 Glucose 77 mg/dL (70-105) 01/04/17 04:45 POC Glucose 79 MG/DL (70 - 105) 01/04/17 06:55 Hemoglobin A1c % 5.2 % (4.0-6.0) 01/02/17 06:00 Whole Bld Lactic Acid 1.19 mmol/L (0.60-1.99) 12/31/16 11:05 Uric Acid 6.4 mg/dL (4.4-7.6) 01/04/17 04:45 Calcium 8.5 mg/dL (8.6-10.3) L 01/04/17 04:45 Phosphorus 4.6 mg/dL (2.5-5.0) 01/02/17 06:00 Magnesium 1.8 mg/dL (1.9-2.7) L 01/02/17 06:00 Iron 60 ug/dL (38-169) 01/02/17 06:00 TIBC 151 ug/dL (250-450) L 01/02/17 06:00 Iron Saturation 40 % (15-55) 01/02/17 06:00 Unsaturated IBC 91 ug/dL (111-343) L 01/02/17 06:00 Total Bilirubin 0.3 mg/dL (0.3-1.0) 01/02/17 06:00 AST 7 U/L (13-39) L 01/02/17 06:00 ALT 7 U/L (7-52) 01/02/17 06:00 Alkaline Phosphatase 93 U/L (34-104) 01/02/17 06:00 Creatine Kinase 38 U/L (30-223) 12/31/16 11:05 Troponin I 0.01 ng/mL (0.01-0.05) 12/31/16 11:05 B-Natriuretic Peptide 76.5 pg/mL (5.0-100.0) 12/31/16 11:05 Total Protein 6.2 gm/dL (6.0-8.3) 01/02/17 06:00 Albumin 2.9 gm/dL (4.2-5.5) L 01/02/17 06:00 Globulin 3.3 gm/dL 01/02/17 06:00 Albumin/Globulin Ratio 0.9 (1.0-1.8) L 01/02/17 06:00 Triglycerides 146 mg/dL (<150) 12/31/16 11:05 Cholesterol 110 mg/dL (<200) 12/31/16 11:05 LDL Cholesterol Direct 54 mg/dL (75-193) L 12/31/16 11:05 HDL Cholesterol 32 mg/dL (23-92) 12/31/16 11:05 Urine Source MIDSTREAM 12/31/16 11:25 Urine Color YELLOW 12/31/16 11:25 Urine Clarity CLEAR (CLEAR) 12/31/16 11:25 Urine pH 5.5 (4.6 - 8.0) 12/31/16 11:25 Ur Specific [place] 1.015 (1.005-1.030) 12/31/16 11:25 Urine Protein 30 mg/dL (NEGATIVE) H 12/31/16 11:25 Urine Glucose (UA) NEGATIVE mg/dL (NEGATIVE) 12/31/16 11:25 Urine Ketones NEGATIVE mg/dL (NEGATIVE) 12/31/16 11:25 Urine Blood NEGATIVE (NEGATIVE) 12/31/16 11:25 Urine Nitrate NEGATIVE (NEGATIVE) 12/31/16 11:25 Urine Bilirubin NEGATIVE (NEGATIVE) 12/31/16 11:25 Urine Ictotest NEGATIVE (NEGATIVE) 12/31/16 11:25 Urine Urobilinogen 0.2 E.U./dL (0.2 - 1.0) 12/31/16 11:25 Ur Leukocyte Esterase TRACE (NEGATIVE) H 12/31/16 11:25 Urine RBC 0-2 /hpf (0-5) H 12/31/16 11:25 Urine WBC 2-5 /hpf (0-5) H 12/31/16 11:25 Ur Epithelial Cells FEW /lpf (FEW) 12/31/16 11:25 Urine Bacteria OCCASIONAL /hpf (NONE SEEN) 12/31/16 11:25 Urine Mucus FEW /lpf (FEW) 12/31/16 11:25 - Physical Exam Vitals and I&O: Vital Signs Temp 98 F 01/04/17 04:00 Pulse 65 01/04/17 04:00 Resp 18 01/04/17 08:00 BP 124/64 01/04/17 04:00 Pulse Ox 97 01/04/17 04:00 Intake & Output 01/03/17 01/04/17 01/04/17 18:59 06:59 18:59 Intake Total 1360 1050 Output Total 800 Balance 560 1050 Weight (lbs) 63.73 kg 63.503 kg Intake: Intake, IV Amount 1000 1050 Sodium Bicarbonate 8.4% 1050 50 meq In Sodium Chloride 0.45% 1,000 ml @ 125 mls /hr IV .Q8H24M [facility] Rx#: [id number] Sodium Chloride 0.9% 1, 1000 000 ml @ 125 mls/hr IV . Q8H [facility] Rx#:[id number] Oral 360 Output: Urine 800 Other: # Voids 7 # Bowel Movements 2 Stool Characteristics Soft Formed Active Medications: Current Medications Aspirin (Aspirin Chewable) 81 mg PO DAILY [facility] Stop: 03/02/17 08:59 Last Admin: 01/04/17 08:37 Dose: 81 mg Atorvastatin Calcium (Lipitor) 10 mg PO DAILY [facility] PRN Reason: Protocol Stop: 03/02/17 08:59 Last Admin: 01/04/17 08:38 Dose: 10 mg Citalopram Hydrobromide (Celexa) 20 mg PO DAILY [facility] PRN Reason: Protocol Stop: 03/02/17 08:59 Last Admin: 01/04/17 08:38 Dose: 20 mg Donepezil HCl (Aricept) 5 mg PO DAILY [facility] Stop: 03/02/17 08:59 Last Admin: 01/04/17 08:38 Dose: 5 mg Ferrous Sulfate (Iron) 325 mg PO DAILY [facility] Stop: 01/08/18 08:59 Last Admin: 01/04/17 08:38 Dose: 325 mg Finasteride (Proscar) 5 mg PO DAILY [facility] PRN Reason: Protocol Stop: 03/02/17 08:59 Last Admin: 01/04/17 08:38 Dose: 5 mg Folic Acid (Folate) 1 mg PO DAILY [facility] Stop: 03/02/17 08:59 Last Admin: 01/04/17 08:37 Dose: 1 mg Sodium Bicarbonate 50 meq/ (Sodium Chloride) 1,050 mls @ 125 mls/hr IV .Q8H24M [facility] Stop: 03/04/17 17:59 Last Admin: 01/04/17 03:15 Dose: 125 mls/hr Insulin Aspart (Novolog Insulin Sliding Scale) 0 units SUBQ ACHS [facility] PRN Reason: Protocol Stop: 03/01/17 16:29 Last Admin: 01/04/17 06:56 Dose: Not Given Metoprolol Tartrate (Lopressor) 25 mg PO HS [facility] Stop: 03/01/17 20:59 Last Admin: 01/03/17 20:00 Dose: Not Given Olanzapine (Zyprexa) 2.5 mg PO QPM [facility] PR[facility] Reason: Protocol Stop: 03/02/17 16:59 Last Admin: 01/03/17 16:51 Dose: 2.5 mg Tamsulosin HCl (Flomax) 0.4 mg PO DAILY [facility] Stop: 03/02/17 08:59 Last Admin: 01/04/17 08:38 Dose: 0.4 mg General: Alert HEENT: PERRLA Neck: Supple Cardiovascular: Regular rate Lungs: Clear to auscultation Abdomen: Bowel sounds, Soft Assessment/Plan - Problem List Patient Problems: All Active Problems right sided partial obastruction (Acute) Nutritional Asmnt/Malnutr-PDOC - Dietary Evaluation Malnutrition Findings (Please click <Entered> for more info): Nutritional Asmnt/Malnutrition Start: 01/01/17 17: 40 Text: Status: Complete Freq: Document 01/01/17 17:40 CARMEN (Rec: 01/01/17 17:55 CARMEN [id number]) Nutritional Asmnt/Malnutrition Patient General Information Nutritional Screening High Risk Diagnosis renal failure, hyponatremia Pertinent Medical Hx/Surgical Hx HTN, CAD, CVA/TIA, dyslipidemia, dementia Subjective Information pt seen alert, hard to communicate during the time of visit. pt reported appetite is good, comsumed 50% of breakfast this morning. Performed physical exam, no fat/muscle wasting noted. UBW 170lb, pt stated no wt loss noted. Per nurse notes, possible dialysis. Current Diet Order/ Nutrition Support low sodium 2 gm Pertinent Medications Iron, Folate, novolog, Nacl IV , Pertinent Labs POC 82-95 since adm 12/31: Na 129L, BUN 62H, Cr 7. 5H, AST 9L, Alb 3.5L Nutritional Hx/Data Height 1.75 m Height (Calculated Centimeters) 175.3 Current Weight (lbs) 64.138 kg Weight (Calculated Kilograms) 64.1 Weight (Calculated Grams) 86884.0 Usual body Weight (lbs) 170 % Usual Body Weight 83 [place] Body Weight 160 % [place] Body Weight 88 Body Mass Index (BMI) 20.8 Weight Status Approriate GI Symptoms GI Symptoms None Difficult in: None Usual diet at home pt stated he eats outside food , he eats vegetables, dairy products and meat. Skin Integrity/Comment: intact Estimated Nutritional Goals Calories/Kcals/Kg 25-30 based on IBW Kcals Calculated 7220-9401 Protein g/k.8 based on IBW, monitor renal labs Protein Calculated 58 Nutritional Problem 1. Problem Problem altered nutrition related lab values Etiology dx of renal failure, possible need for dialysis Signs/Symptoms: BUN 62H, Cr 7.5H Malnutrition Alert Protein-Calorie Malnutrition N/A Is there a minimum of two criteria No selected? Query Text:Check all the applicable criteria. A minimum of two criteria are recommended for diagnosis of either severe or non-severe malnutrition. Intervention/Recommendation Comments 1. continue with current diet order. if renal labs not improved and pt not on dialysis, will consider change to renal diet. 2. monitor PO intake, wt weekly, labs, skin 3. F/U as high risk in 2-3 days, 01/03-01/04 Expected Outcomes/Goals Expected Outcomes/Goals 1. PO intake >75% to meet nutrition needs 2. labs to improve 3. wt stability, skin to remain intact
--- NOTE | 2017-01-04 16:49 | General Progress Note ---
Subjective - Review of Systems Service Date: 01/04/17 (continue to be incontinent of uriine c/o urinal not given back to him) Objective - Results Result Diagrams: 01/02/17 06:00 01/04/17 04:45 Recent Labs: Laboratory Last Values WBC 6.3 Th/cmm (4.8-10.8) 01/02/17 06:00 Corrected WBC (auto) Cancelled 01/02/17 06:00 RBC 3.18 Mil/cmm (3.80-5.80) L 01/02/17 06:00 Hgb 9.9 gm/dL (12-16) L 01/02/17 06:00 Hct 29.4 % (41.0-60) L 01/02/17 06:00 MCV 92.4 fl (80-99) 01/02/17 06:00 MCH 31.2 pg (27.0-31.0) H 01/02/17 06:00 MCHC Differential 33.8 pg (28.0-36.0) 01/02/17 06:00 RDW 12.4 % (11.5-20.0) 01/02/17 06:00 Plt Count 228 Th/cmm (150-400) 01/02/17 06:00 MPV 6.3 fl 01/02/17 06:00 Neutrophils % 70.2 % (40.0-80.0) 01/02/17 06:00 Lymphocytes % 14.2 % (20.0-50.0) L 01/02/17 06:00 Monocytes % 9.7 % (2.0-10.0) 01/02/17 06:00 Eosinophils % 4.9 % (0.0-5.0) 01/02/17 06:00 Basophils % 1.0 % (0.0-2.0) 01/02/17 06:00 Smear Path Review Cancelled 01/02/17 06:00 PT 10.5 SECONDS (9.5-11.5) 12/31/16 11:05 INR 1.01 (0.5-1.4) 12/31/16 11:05 PTT (Actin FS) 26.9 SECONDS (26.0-38.0) 12/31/16 11:05 Sodium 137 mEq/L (136-145) 01/04/17 04:45 Potassium 5.0 mEq/L (3.5-5.1) 01/04/17 04:45 Chloride 113 mEq/L (98-107) H 01/04/17 04:45 Carbon Dioxide 19.2 mEq/L (21.0-31.0) L 01/04/17 04:45 Anion Gap 9.8 (7.0-16.0) 01/04/17 04:45 BUN 52 mg/dL (7-25) H 01/04/17 04:45 Creatinine 6.6 mg/dL (0.7-1.3) H* 01/04/17 04:45 Est GFR ( Amer) TNP 01/04/17 04:45 Est GFR (Non-Af Amer) TNP 01/04/17 04:45 BUN/Creatinine Ratio 7.9 01/04/17 04:45 Glucose 77 mg/dL (70-105) 01/04/17 04:45 POC Glucose 75 MG/DL (70 - 105) 01/04/17 16:32 Hemoglobin A1c % 5.2 % (4.0-6.0) 01/02/17 06:00 Whole Bld Lactic Acid 1.19 mmol/L (0.60-1.99) 12/31/16 11:05 Uric Acid 6.4 mg/dL (4.4-7.6) 01/04/17 04:45 Calcium 8.5 mg/dL (8.6-10.3) L 01/04/17 04:45 Phosphorus 4.6 mg/dL (2.5-5.0) 01/02/17 06:00 Magnesium 1.8 mg/dL (1.9-2.7) L 01/02/17 06:00 Iron 60 ug/dL (38-169) 01/02/17 06:00 TIBC 151 ug/dL (250-450) L 01/02/17 06:00 Iron Saturation 40 % (15-55) 01/02/17 06:00 Unsaturated IBC 91 ug/dL (111-343) L 01/02/17 06:00 Total Bilirubin 0.3 mg/dL (0.3-1.0) 01/02/17 06:00 AST 7 U/L (13-39) L 01/02/17 06:00 ALT 7 U/L (7-52) 01/02/17 06:00 Alkaline Phosphatase 93 U/L (34-104) 01/02/17 06:00 Creatine Kinase 38 U/L (30-223) 12/31/16 11:05 Troponin I 0.01 ng/mL (0.01-0.05) 12/31/16 11:05 B-Natriuretic Peptide 76.5 pg/mL (5.0-100.0) 12/31/16 11:05 Total Protein 6.2 gm/dL (6.0-8.3) 01/02/17 06:00 Albumin 2.9 gm/dL (4.2-5.5) L 01/02/17 06:00 Globulin 3.3 gm/dL 01/02/17 06:00 Albumin/Globulin Ratio 0.9 (1.0-1.8) L 01/02/17 06:00 Triglycerides 146 mg/dL (<150) 12/31/16 11:05 Cholesterol 110 mg/dL (<200) 12/31/16 11:05 LDL Cholesterol Direct 54 mg/dL (75-193) L 12/31/16 11:05 HDL Cholesterol 32 mg/dL (23-92) 12/31/16 11:05 Urine Source MIDSTREAM 12/31/16 11:25 Urine Color YELLOW 12/31/16 11:25 Urine Clarity CLEAR (CLEAR) 12/31/16 11:25 Urine pH 5.5 (4.6 - 8.0) 12/31/16 11:25 Ur Specific [place] 1.015 (1.005-1.030) 12/31/16 11:25 Urine Protein 30 mg/dL (NEGATIVE) H 12/31/16 11:25 Urine Glucose (UA) NEGATIVE mg/dL (NEGATIVE) 12/31/16 11:25 Urine Ketones NEGATIVE mg/dL (NEGATIVE) 12/31/16 11:25 Urine Blood NEGATIVE (NEGATIVE) 12/31/16 11:25 Urine Nitrate NEGATIVE (NEGATIVE) 12/31/16 11:25 Urine Bilirubin NEGATIVE (NEGATIVE) 12/31/16 11:25 Urine Ictotest NEGATIVE (NEGATIVE) 12/31/16 11:25 Urine Urobilinogen 0.2 E.U./dL (0.2 - 1.0) 12/31/16 11:25 Ur Leukocyte Esterase TRACE (NEGATIVE) H 12/31/16 11:25 Urine RBC 0-2 /hpf (0-5) H 12/31/16 11:25 Urine WBC 2-5 /hpf (0-5) H 12/31/16 11:25 Ur Epithelial Cells FEW /lpf (FEW) 12/31/16 11:25 Urine Bacteria OCCASIONAL /hpf (NONE SEEN) 12/31/16 11:25 Urine Mucus FEW /lpf (FEW) 12/31/16 11:25 - Physical Exam Vitals and I&O: Vital Signs Temp 98.6 F 01/04/17 16:08 Pulse 60 01/04/17 16:08 Resp 20 01/04/17 16:08 BP 134/71 01/04/17 16:08 Pulse Ox 97 01/04/17 16:08 Intake & Output 01/03/17 01/04/17 01/04/17 18:59 06:59 18:59 Intake Total 1360 1050 1050 Output Total 800 Balance 560 1050 1050 Weight (lbs) 63.73 kg 63.503 kg Intake: Intake, IV Amount 1000 1050 1050 Sodium Bicarbonate 8.4% 1050 1050 50 meq In Sodium Chloride 0.45% 1,000 ml @ 125 mls /hr IV .Q8H24M [facility] Rx#: [id number] Sodium Chloride 0.9% 1, 1000 000 ml @ 125 mls/hr IV . Q8H [facility] Rx#:[id number] Oral 360 Output: Urine 800 Other: # Voids 7 # Bowel Movements 2 Stool Characteristics Soft Formed Active Medications: Current Medications Aspirin (Aspirin Chewable) 81 mg PO DAILY [facility] Stop: 03/02/17 08:59 Last Admin: 01/04/17 08:37 Dose: 81 mg Atorvastatin Calcium (Lipitor) 10 mg PO DAILY [facility] PRN Reason: Protocol Stop: 03/02/17 08:59 Last Admin: 01/04/17 08:38 Dose: 10 mg Citalopram Hydrobromide (Celexa) 20 mg PO DAILY [facility] PRN Reason: Protocol Stop: 03/02/17 08:59 Last Admin: 01/04/17 08:38 Dose: 20 mg Donepezil HCl (Aricept) 5 mg PO DAILY [facility] Stop: 03/02/17 08:59 Last Admin: 01/04/17 08:38 Dose: 5 mg Ferrous Sulfate (Iron) 325 mg PO DAILY [facility] Stop: 03/02/17 08:59 Last Admin: 01/04/17 08:38 Dose: 325 mg Finasteride (Proscar) 5 mg PO DAILY [facility] PRN Reason: Protocol Stop: 03/02/17 08:59 Last Admin: 01/04/17 08:38 Dose: 5 mg Folic Acid (Folate) 1 mg PO DAILY [facility] Stop: 03/02/17 08:59 Last Admin: 01/04/17 08:37 Dose: 1 mg Sodium Bicarbonate 50 meq/ (Sodium Chloride) 1,050 mls @ 125 mls/hr IV .Q8H24M [facility] Stop: 03/04/17 17:59 Last Admin: 01/04/17 12:14 Dose: 125 mls/hr Insulin Aspart (Novolog Insulin Sliding Scale) 0 units SUBQ ACHS [facility] PRN Reason: Protocol Stop: 03/01/17 16:29 Last Admin: 01/04/17 12:15 Dose: Not Given Metoprolol Tartrate (Lopressor) 25 mg PO HS [facility] Stop: 03/01/17 20:59 Last Admin: 01/03/17 20:00 Dose: Not Given Olanzapine (Zyprexa) 2.5 mg PO QPM [facility] PRN Reason: Protocol Stop: 03/02/17 16:59 Last Admin: 01/03/17 16:51 Dose: 2.5 mg Tamsulosin HCl (Flomax) 0.4 mg PO DAILY [facility] Stop: 03/02/17 08:59 Last Admin: 01/04/17 08:38 Dose: 0.4 mg General: Alert HEENT: PERRLA Neck: Supple Cardiovascular: Regular rate Lungs: Clear to auscultation Abdomen: Bowel sounds, Soft Assessment/Plan - Problem List Patient Problems: All Active Problems right sided partial obastruction (Acute) - Plan Plan: right hydro will need urology evaluation ? in patient or out patient continue to foloow bmp iv nabicarb 125 cc with 1/ etilogy of right side hydro ? stone uric acid mor calciumunclear Nutritional Asmnt/Malnutr-PDOC - Dietary Evaluation Malnutrition Findings (Please click <Entered> for more info): Nutritional Asmnt/Malnutrition Start: 01/01/17 17: 40 Text: Status: Complete Freq: Document 01/01/17 17:40 LCDALLING (Rec: 01/01/17 17:55 LCDALLING [id number]) Nutritional Asmnt/Malnutrition Patient General Information Nutritional Screening High Risk Diagnosis renal failure, hyponatremia Pertinent Medical Hx/Surgical Hx HTN, CAD, CVA/TIA, dyslipidemia, dementia Subjective Information pt seen alert, hard to communicate during the time of visit. pt reported appetite is good, comsumed 50% of breakfast this morning. Performed physical exam, no fat/muscle wasting noted. UBW 170lb, pt stated no wt loss noted. Per nurse notes, possible dialysis. Current Diet Order/ Nutrition Support low sodium 2 gm Pertinent Medications Iron, Folate, novolog, Nacl IV , Pertinent Labs POC 82-95 since adm 12/31: Na 129L, BUN 62H, Cr 7. 5H, AST 9L, Alb 3.5L Nutritional Hx/Data Height 1.75 m Height (Calculated Centimeters) 175.3 Current Weight (lbs) 64.138 kg Weight (Calculated Kilograms) 64.1 Weight (Calculated Grams) 80485.0 Usual body Weight (lbs) 170 % Usual Body Weight 83 [place] Body Weight 160 % [place] Body Weight 88 Body Mass Index (BMI) 20.8 Weight Status Approriate GI Symptoms GI Symptoms None Difficult in: None Usual diet at home pt stated he eats outside food , he eats vegetables, dairy products and meat. Skin Integrity/Comment: intact Estimated Nutritional Goals Calories/Kcals/Kg 25-30 based on IBW Kcals Calculated 8867-7051 Protein g/k.8 based on IBW, monitor renal labs Protein Calculated 58 Nutritional Problem 1. Problem Problem altered nutrition related lab values Etiology dx of renal failure, possible need for dialysis Signs/Symptoms: BUN 62H, Cr 7.5H Malnutrition Alert Protein-Calorie Malnutrition N/A Is there a minimum of two criteria No selected? Query Text:Check all the applicable criteria. A minimum of two criteria are recommended for diagnosis of either severe or non-severe malnutrition. Intervention/Recommendation Comments 1. continue with current diet order. if renal labs not improved and pt not on dialysis, will consider change to renal diet. 2. monitor PO intake, wt weekly, labs, skin 3. F/U as high risk in 2-3 days, 01/03-01/04 Expected Outcomes/Goals Expected Outcomes/Goals 1. PO intake >75% to meet nutrition needs 2. labs to improve 3. wt stability, skin to remain intact
[2017-01-04] MEDS: Albuterol Nebulizer 2.5mg/3mL HHN SCH ×2 (19:36→22:45)
[2017-01-04] MEDS: Codeine/Promethazine Susp 5 mL UDC PO SCH (21:25)
--- NOTE | 2017-01-05 01:47 | Progress Notes ---
DATE: 01/04/2017 Case was discussed with staff of the patient also met his girlfriend who came to visit from [place]. She comes 3 times a year. 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 He is not acting anyway dangerous sleeping better, eating better. He is compliant with the medication with no side effects, no sedation, no nausea, no extrapyramidal symptoms. The patient needs follow up with the psychiatrist on discharge. Thank you very much for allowing me to participate in the care of this most interesting gentleman. [facility]# [id number]
[2017-01-05] MEDS: Albuterol Nebulizer 2.5mg/3mL HHN SCH ×4 (02:27→15:02)
[2017-01-05] MEDS: Codeine/Promethazine Susp 5 mL UDC PO SCH ×3 (04:53→18:00)
[2017-01-05 05:33] LABS: % EOSINOPHILS 2.7 % (0.0-5.0); % LYMPHOCYTES 13.2 % (20.0-50.0); % MONOCYTES 8.2 % (2.0-10.0); % NEUTROPHILS 75.9 % (40.0-80.0); HEMOGLOBIN 8.7 gm/dL (12-16); MEAN CORPUSCULAR HEMOGLOBIN 30.8 pg (27.0-31.0); MEAN CORPUSCULAR HGB CONC 33.5 pg (28.0-36.0); MEAN PLATELET VOLUME 6.9 fl; NEUTROPHILE ABSOLUTE 4.6 Th/cmm (1.8-8.0); PLATELET COUNT 191 Th/cmm (150-400); RED BLOOD COUNT 2.83 Mil/cmm (3.80-5.80); RED CELL DISTRIBUTION WIDTH 12.2 % (11.5-20.0); WHITE BLOOD COUNT 6.1 Th/cmm (4.8-10.8)
[2017-01-05 06:10] LABS: ANION GAP 9.9 (7.0-16.0); BUN - UREA NITROGEN 50 mg/dL (7-25); BUN/CREATININE RATIO 7.8; CALCIUM SERUM 8.4 mg/dL (8.6-10.3); CARBON DIOXIDE 20.3 mEq/L (21.0-31.0); CHLORIDE 110 mEq/L (98-107); GLUCOSE 85 mg/dL (70-105); POTASSIUM SERUM 4.2 mEq/L (3.5-5.1); SODIUM SERUM 136 mEq/L (136-145)
[2017-01-05 06:22] LABS: CREATININE - SERUM 6.4 mg/dL (0.7-1.3)
[2017-01-05] MEDS: INSULIN ASPART SLIDING SCALE 100 UNITS/ML UNIT SUBQ SCH ×3 (07:55→17:01)
--- NOTE | 2017-01-05 08:43 | Diagnostic Imaging Report ---
Portable chest x-ray HISTORY: Pneumonia Compared with prior exam of December 31, 2016, there is a poor inspiration. The heart is enlarged. Infiltrate is noted in the left lower lobe. Faint linear density noted in the right lung base. Changes may be associated with a degree of congestive heart failure. Pneumonia cannot be excluded. Clinical correlation is needed. IMPRESSION: 1. New infiltrate left lower lobe along with faint parenchymal density in the right lung base. Changes may be associated with a degree of congestive heart failure and edema. However, pneumonia cannot be excluded. Clinical correlation is needed.
[2017-01-05 09:30] LABS: SODIUM SERUM 137 mEq/L (136-145)
[2017-01-05] MEDS: Ferrous Sulfate 325 MG TAB PO SCH (09:56)
[2017-01-05] MEDS: Aspirin 81mg Chewable Tab PO SCH (09:57)
[2017-01-05] MEDS: Atorvastatin Calcium 10 MG TAB PO SCH (09:57)
--- NOTE | 2017-01-05 17:34 | General Progress Note ---
Subjective - Review of Systems Service Date: 01/05/17 Objective - Results Result Diagrams: 01/05/17 05:10 01/05/17 05:10 Recent Labs: Laboratory Last Values WBC 6.1 Th/cmm (4.8-10.8) 01/05/17 05:10 Corrected WBC (auto) Cancelled 01/02/17 06:00 RBC 2.83 Mil/cmm (3.80-5.80) L 01/05/17 05:10 Hgb 8.7 gm/dL (12-16) L 01/05/17 05:10 Hct 26.0 % (41.0-60) L D 01/05/17 05:10 MCV 92.0 fl (80-99) 01/05/17 05:10 MCH 30.8 pg (27.0-31.0) 01/05/17 05:10 MCHC Differential 33.5 pg (28.0-36.0) 01/05/17 05:10 RDW 12.2 % (11.5-20.0) 01/05/17 05:10 Plt Count 191 Th/cmm (150-400) 01/05/17 05:10 MPV 6.9 fl 01/05/17 05:10 Neutrophils % 75.9 % (40.0-80.0) 01/05/17 05:10 Lymphocytes % 13.2 % (20.0-50.0) L 01/05/17 05:10 Monocytes % 8.2 % (2.0-10.0) 01/05/17 05:10 Eosinophils % 2.7 % (0.0-5.0) 01/05/17 05:10 Basophils % 0.0 % (0.0-2.0) 01/05/17 05:10 Smear Path Review Cancelled 01/02/17 06:00 PT 10.5 SECONDS (9.5-11.5) 12/31/16 11:05 INR 1.01 (0.5-1.4) 12/31/16 11:05 PTT (Actin FS) 26.9 SECONDS (26.0-38.0) 12/31/16 11:05 Sodium 136 mEq/L (136-145) 01/05/17 05:10 Potassium 4.2 mEq/L (3.5-5.1) 01/05/17 05:10 Chloride 110 mEq/L (98-107) H 01/05/17 05:10 Carbon Dioxide 20.3 mEq/L (21.0-31.0) L 01/05/17 05:10 Anion Gap 9.9 (7.0-16.0) 01/05/17 05:10 BUN 50 mg/dL (7-25) H 01/05/17 05:10 Creatinine 6.4 mg/dL (0.7-1.3) H* 01/05/17 05:10 Est GFR ( Amer) TNP 01/05/17 05:10 Est GFR (Non-Af Amer) TNP 01/05/17 05:10 BUN/Creatinine Ratio 7.8 01/05/17 05:10 Glucose 85 mg/dL (70-105) 01/05/17 05:10 POC Glucose 117 MG/DL (70 - 105) H 01/05/17 16:46 Hemoglobin A1c % 5.2 % (4.0-6.0) 01/02/17 06:00 Whole Bld Lactic Acid 1.19 mmol/L (0.60-1.99) 12/31/16 11:05 Uric Acid 6.4 mg/dL (4.4-7.6) 01/04/17 04:45 Calcium 8.4 mg/dL (8.6-10.3) L 01/05/17 05:10 Phosphorus 4.6 mg/dL (2.5-5.0) 01/02/17 06:00 Magnesium 1.8 mg/dL (1.9-2.7) L 01/02/17 06:00 Iron 60 ug/dL (38-169) 01/02/17 06:00 TIBC 151 ug/dL (250-450) L 01/02/17 06:00 Iron Saturation 40 % (15-55) 01/02/17 06:00 Unsaturated IBC 91 ug/dL (111-343) L 01/02/17 06:00 Total Bilirubin 0.3 mg/dL (0.3-1.0) 01/02/17 06:00 AST 7 U/L (13-39) L 01/02/17 06:00 ALT 7 U/L (7-52) 01/02/17 06:00 Alkaline Phosphatase 93 U/L (34-104) 01/02/17 06:00 Creatine Kinase 38 U/L (30-223) 12/31/16 11:05 Troponin I 0.01 ng/mL (0.01-0.05) 12/31/16 11:05 B-Natriuretic Peptide 76.5 pg/mL (5.0-100.0) 12/31/16 11:05 Total Protein 6.2 gm/dL (6.0-8.3) 01/02/17 06:00 Albumin 2.9 gm/dL (4.2-5.5) L 01/02/17 06:00 Globulin 3.3 gm/dL 01/02/17 06:00 Albumin/Globulin Ratio 0.9 (1.0-1.8) L 01/02/17 06:00 Triglycerides 146 mg/dL (<150) 12/31/16 11:05 Cholesterol 110 mg/dL (<200) 12/31/16 11:05 LDL Cholesterol Direct 54 mg/dL (75-193) L 12/31/16 11:05 HDL Cholesterol 32 mg/dL (23-92) 12/31/16 11:05 Urine Source MIDSTREAM 12/31/16 11:25 Urine Color YELLOW 12/31/16 11:25 Urine Clarity CLEAR (CLEAR) 12/31/16 11:25 Urine pH 5.5 (4.6 - 8.0) 12/31/16 11:25 Ur Specific Riley 1.015 (1.005-1.030) 12/31/16 11:25 Urine Protein 30 mg/dL (NEGATIVE) H 12/31/16 11:25 Urine Glucose (UA) NEGATIVE mg/dL (NEGATIVE) 12/31/16 11:25 Urine Ketones NEGATIVE mg/dL (NEGATIVE) 12/31/16 11:25 Urine Blood NEGATIVE (NEGATIVE) 12/31/16 11:25 Urine Nitrate NEGATIVE (NEGATIVE) 12/31/16 11:25 Urine Bilirubin NEGATIVE (NEGATIVE) 12/31/16 11:25 Urine Ictotest NEGATIVE (NEGATIVE) 12/31/16 11:25 Urine Urobilinogen 0.2 E.U./dL (0.2 - 1.0) 12/31/16 11:25 Ur Leukocyte Esterase TRACE (NEGATIVE) H 12/31/16 11:25 Urine RBC 0-2 /hpf (0-5) H 12/31/16 11:25 Urine WBC 2-5 /hpf (0-5) H 12/31/16 11:25 Ur Epithelial Cells FEW /lpf (FEW) 12/31/16 11:25 Urine Bacteria OCCASIONAL /hpf (NONE SEEN) 12/31/16 11:25 Urine Mucus FEW /lpf (FEW) 12/31/16 11:25 - Physical Exam Vitals and I&O: Vital Signs Temp 98.2 F 01/05/17 16:06 Pulse 89 01/05/17 16:06 Resp 18 01/05/17 16:06 BP 149/70 01/05/17 16:06 Pulse Ox 93 01/05/17 16:06 Intake & Output 01/04/17 01/05/17 01/05/17 18:59 06:59 18:59 Intake Total 1050 2102.5 852.083 Output Total 700 Balance 1050 1402.5 852.083 Weight (lbs) 86.183 kg Intake: Intake, IV Amount 1050 1562.5 852.083 Sodium Bicarbonate 8.4% 1050 1562.5 852.083 50 meq In Sodium Chloride 0.45% 1,000 ml @ 125 mls /hr IV .Q8H24M [facility] Rx#: [id number] Oral 540 Output: Urine 700 Other: # Voids 1 Active Medications: Current Medications Albuterol Sulfate (Albuterol 2.5mg/3ml Neb Ud) 2.5 mg HHN Q4H [facility] Stop: 03/05/17 18:59 Last Admin: 01/05/17 15:02 Dose: 2.5 mg Aspirin (Aspirin Chewable) 81 mg PO DAILY [facility] Stop: 03/02/17 08:59 Last Admin: 01/05/17 09:57 Dose: 81 mg Atorvastatin Calcium (Lipitor) 10 mg PO DAILY [facility] PRN Reason: Protocol Stop: 03/02/17 08:59 Last Admin: 01/05/17 09:57 Dose: 10 mg Citalopram Hydrobromide (Celexa) 20 mg PO DAILY [facility] PRN Reason: Protocol Stop: 03/02/17 08:59 Last Admin: 01/05/17 09:57 Dose: 20 mg Donepezil HCl (Aricept) 5 mg PO DAILY [facility] Stop: 03/02/17 08:59 Last Admin: 01/05/17 09:56 Dose: 5 mg Ferrous Sulfate (Iron) 325 mg PO DAILY [facility] Stop: 03/02/17 08:59 Last Admin: 01/05/17 09:56 Dose: 325 mg Finasteride (Proscar) 5 mg PO DAILY [facility] PRN Reason: Protocol Stop: 03/02/17 08:59 Last Admin: 01/05/17 09:56 Dose: 5 mg Folic Acid (Folate) 1 mg PO DAILY [facility] Stop: 03/02/17 08:59 Last Admin: 01/05/17 09:57 Dose: 1 mg Heparin Sodium (Porcine) (Heparin) 5,000 units SUBQ Q12HR [facility] Stop: 03/05/17 20:59 Last Admin: 01/05/17 10:00 Dose: 5,000 units Sodium Bicarbonate 50 meq/ (Sodium Chloride) 1,050 mls @ 125 mls/hr IV .Q8H24M [facility] Stop: 03/04/17 17:59 Last Admin: 01/05/17 11:41 Dose: 125 mls/hr Insulin Aspart (Novolog Insulin Sliding Scale) 0 units SUBQ ACHS [facility] PRN Reason: Protocol Stop: 03/01/17 16:29 Last Admin: 01/05/17 17:01 Dose: Not Given Metoprolol Tartrate (Lopressor) 25 mg PO HS [facility] Stop: 03/01/17 20:59 Last Admin: 01/04/17 21:24 Dose: 25 mg Olanzapine (Zyprexa) 2.5 mg PO QPM [facility] PRN Reason: Protocol Stop: 03/02/17 16:59 Last Admin: 01/04/17 17:19 Dose: 2.5 mg Ondansetron HCl (Zofran) 4 mg IV Q8H PRN PRN Reason: Nausea / Vomiting Stop: 03/06/17 12:06 Promethazine HCl/Codeine (Phenergan W/Cod Susp) 5 ml PO Q4H [facility] Stop: 01/08/17 13:59 Last Admin: 01/05/17 15:34 Dose: 5 ml Tamsulosin HCl (Flomax) 0.4 mg PO DAILY [facility] Stop: 03/02/17 08:59 Last Admin: 01/05/17 09:58 Dose: 0.4 mg General: Alert HEENT: PERRLA Neck: Supple Cardiovascular: Regular rate Lungs: Clear to auscultation Abdomen: Bowel sounds, Soft Assessment/Plan - Problem List Patient Problems: All Active Problems right sided partial obastruction (Acute) - Plan Plan: right hydro will need urology evaluation ? in patient or out patient continue to foloow bmp iv nabicarb 125 cc with 1/ etilogy of right side hydro ? stone uric acid mor calciumunclear this patyient will need referral to urology as an outpatient for possible retrostent placement right kidneys Nutritional Asmnt/Malnutr-PDOC - Dietary Evaluation Malnutrition Findings (Please click <Entered> for more info): Nutritional Asmnt/Malnutrition Start: 01/01/17 17: 40 Text: Status: Complete Freq: Document 01/01/17 17:40 CARMEN (Rec: 01/01/17 17:55 DALLING [id number]) Nutritional Asmnt/Malnutrition Patient General Information Nutritional Screening High Risk Diagnosis renal failure, hyponatremia Pertinent Medical Hx/Surgical Hx HTN, CAD, CVA/TIA, dyslipidemia, dementia Subjective Information pt seen alert, hard to communicate during the time of visit. pt reported appetite is good, comsumed 50% of breakfast this morning. Performed physical exam, no fat/muscle wasting noted. UBW 170lb, pt stated no wt loss noted. Per nurse notes, possible dialysis. Current Diet Order/ Nutrition Support low sodium 2 gm Pertinent Medications Iron, Folate, novolog, Nacl IV , Pertinent Labs POC 82-95 since adm 12/31: Na 129L, BUN 62H, Cr 7. 5H, AST 9L, Alb 3.5L Nutritional Hx/Data Height 1.75 m Height (Calculated Centimeters) 175.3 Current Weight (lbs) 64.138 kg Weight (Calculated Kilograms) 64.1 Weight (Calculated Grams) 34956.0 Usual body Weight (lbs) 170 % Usual Body Weight 83 [place] Body Weight 160 % [place] Body Weight 88 Body Mass Index (BMI) 20.8 Weight Status Approriate GI Symptoms GI Symptoms None Difficult in: None Usual diet at home pt stated he eats outside food , he eats vegetables, dairy products and meat. Skin Integrity/Comment: intact Estimated Nutritional Goals Calories/Kcals/Kg 25-30 based on IBW Kcals Calculated 6768-2731 Protein g/k.8 based on IBW, monitor renal labs Protein Calculated 58 Nutritional Problem 1. Problem Problem altered nutrition related lab values Etiology dx of renal failure, possible need for dialysis Signs/Symptoms: BUN 62H, Cr 7.5H Malnutrition Alert Protein-Calorie Malnutrition N/A Is there a minimum of two criteria No selected? Query Text:Check all the applicable criteria. A minimum of two criteria are recommended for diagnosis of either severe or non-severe malnutrition. Intervention/Recommendation Comments 1. continue with current diet order. if renal labs not improved and pt not on dialysis, will consider change to renal diet. 2. monitor PO intake, wt weekly, labs, skin 3. F/U as high risk in 2-3 days, 01/03-01/04 Expected Outcomes/Goals Expected Outcomes/Goals 1. PO intake >75% to meet nutrition needs 2. labs to improve 3. wt stability, skin to remain intact
--- NOTE | 2017-01-05 21:44 | Progress Notes ---
DATE: 01/05/2017 Case was discussed with staff of the patient, reviewed records. He continues to do the same. I was told he is not acting out. The patient himself is a poor historian. His girlfriend told me that his long history of mental illness with a history of electroconvulsive therapy. He currently seems to be stable. No side effects with the medication, no sedation, no nausea. The patient needs follow up with the psychiatrist upon discharge and continue to follow the patient here. We will put the patient in group therapy and adjust medications. JOB# [id number]
--- NOTE | 2017-01-07 16:45 | Discharge Summary ---
DATE OF DISCHARGE: 01/05/2017 HOSPITAL COURSE: Basically this patient is very well known to me. The patient from [facility], known to have history of CVA, history of hypertension, history of TIA, history of coronary artery disease, dementia. The patient was having productive cough and chest congestion, was admitted for hyponatremia, acute renal failure, urinary tract infection, hypertension. The patient was admitted, had complete workup and also was given IV antibiotics and the patient felt better. The patient was in stable condition and on 01/05/2017, the patient was sent back to the [facility] with cough medication and antibiotics and I will follow the patient there. MEDICATIONS: See the reconciliation sheet. JOB# [id number]
== END 2017-01-05 18:51 | disposition home or self-care (01) | DRG 871 ==
LOC: ER 10:32 → MSI 13:00
PROVIDERS: ADMIT Internal Medicine; ATTEND Internal Medicine
DX: A41.9 Sepsis, unspecified organism (principal); E43 Unspecified severe protein-calorie malnutrition; N17.9 Acute kidney failure, unspecified; J18.9 Pneumonia, unspecified organism; E87.1 Hypo-osmolality and hyponatremia; R13.10 Dysphagia, unspecified; D63.1 Anemia in chronic kidney disease; E11.22 Type 2 diabetes mellitus with diabetic chronic kidney disease; F03.90 Unspecified dementia, unspecified severity, without behavioral disturbance, psychotic disturbance, mood disturbance, and anxiety; N39.0 Urinary tract infection, site not specified; F43.23 Adjustment disorder with mixed anxiety and depressed mood; I12.9 Hypertensive chronic kidney disease with stage 1 through stage 4 chronic kidney disease, or unspecified chronic kidney disease; N18.9 Chronic kidney disease, unspecified; I25.10 Atherosclerotic heart disease of native coronary artery without angina pectoris; E78.5 Hyperlipidemia, unspecified; F43.20 Adjustment disorder, unspecified; R47.1 Dysarthria and anarthria; R32 Unspecified urinary incontinence; F31.9 Bipolar disorder, unspecified; F41.9 Anxiety disorder, unspecified; Z86.73 Personal history of transient ischemic attack (TIA), and cerebral infarction without residual deficits; Z82.49 Family history of ischemic heart disease and other diseases of the circulatory system; Z83.3 Family history of diabetes mellitus; Z68.25 Body mass index [BMI] 25.0-25.9, adult
CPT/HCPCS: 36415-UA; 70450-TC; 71010-TC; 76770-TC; 80048-TC; 80053-TC; 80061-TC; 81001-TC; 82550-TC; 82948-90; 83036-90; 83540-90; 83550-90; 83605; 83735-TC; 83880-TC; 84100-TC; 84484-TC; 84550-TC; 85025-TC; 85610-TC; 85730-TC; 87086-90; 90799; 93005; 94640; 94760; J1644; J1815; J1956; J7030; J7042; J7613; X3401; Z7610

== ENCOUNTER 2017-01-16 19:22 | Inpatient (IN) | payer MEDICARE ==
[2017-01-16 20:49] LABS: % BASOPHILS 1.1 % (0.0-2.0); % EOSINOPHILS 5.4 % (0.0-5.0); % LYMPHOCYTES 14.3 % (20.0-50.0); % MONOCYTES 9.2 % (2.0-10.0); MEAN CELL VOLUME 92.8 fl (80-99); MEAN CORPUSCULAR HEMOGLOBIN 31.1 pg (27.0-31.0); MEAN CORPUSCULAR HGB CONC 33.5 pg (28.0-36.0); MEAN PLATELET VOLUME 5.9 fl; NEUTROPHILE ABSOLUTE 4.6 Th/cmm (1.8-8.0); RED BLOOD COUNT 3.61 Mil/cmm (3.80-5.80); RED CELL DISTRIBUTION WIDTH 12.4 % (11.5-20.0); WHITE BLOOD COUNT 6.7 Th/cmm (4.8-10.8)
[2017-01-16 20:55] LABS: HEMATOCRIT 33.5 % (41.0-60); HEMOGLOBIN 11.2 gm/dL (12-16)
[2017-01-16 20:56] LABS: PLATELET COUNT 265 Th/cmm (150-400)
[2017-01-16 21:10] LABS: ALB/GLOB RATIO 0.8 (1.0-1.8); ALKALINE PHOSPHATASE 100 U/L (34-104); ANION GAP 14.6 (7.0-16.0); BILIRUBIN,TOTAL 0.4 mg/dL (0.3-1.0); BUN - UREA NITROGEN 37 mg/dL (7-25); CALCIUM SERUM 9.8 mg/dL (8.6-10.3); CARBON DIOXIDE 20.5 mEq/L (21.0-31.0); CHLORIDE 108 mEq/L (98-107); GLUCOSE 88 mg/dL (70-105); POTASSIUM SERUM 5.1 mEq/L (3.5-5.1); SGOT 13 U/L (13-39); SGPT/ALT 9 U/L (7-52); SODIUM SERUM 138 mEq/L (136-145)
[2017-01-16 21:17] LABS: CREATININE - SERUM 7.4 mg/dL (0.7-1.3)
--- NOTE | 2017-01-16 21:41 | ED Physician Chart ---
ED Chief Complaint/HPI - Patient Information Date Seen:: 01/16/17 Time Seen:: 19:45 Chief Complaint:: Generalized weakness History of Present Illness:: 76 yo male was brought from [facility] to ER for evaluation of generalized weakness. The patient is alert, but confused, speech incoherent. He follows command and denies any pain or discomfort. He is tachycardic, afebrile, BP elevated. Allergies:: Allergies Allergy/AdvReac Type Severity Reaction Status Date / Time No Known Allergies Allergy Verified 12/31/16 10:47 Vitals:: Vital Signs - 8 hr 01/16/17 19:30 Temp 98.6 F HR 98 RR 21 BP 179/117 O2 Sat % 96 ED Review of Systems - Review of Systems General/Constitutional: No fever, No chills Skin: No bruising Head: No headache Eyes: No loss of vision ENT: No nasal drainage Neck: No stiffness Cardio Vascular: No chest pain Pulmonary: No SOB GI: No nausea, No vomiting Musculoskeletal: No bone or joint pain ED Past Medical History - Past Medical History Past Medical History: HTN, Dyslipidemia, PUD/GERD, Dementia, Other (BPH, anemia) Social History: Non Smoker, No Alcohol, No Drug Use Surgical History: None Family Medical History - Family Member Mother Ethnicity: Non- Living Status: ED Labs/Radiology/EKG Results - Lab Results Results: Laboratory Tests 01/16/17 01/16/17 01/16/17 20:44 20:44 20:44 WBC 6.7 RBC 3.61 L Hgb 11.2 L D Hct 33.5 L D MCV 92.8 MCH 31.1 H MCHC Differential 33.5 RDW 12.4 Plt Count 265 D MPV 5.9 Neutrophils % 70.0 Lymphocytes % 14.3 L Monocytes % 9.2 Eosinophils % 5.4 H Basophils % 1.1 Sodium 138 Potassium 5.1 Chloride 108 H Carbon Dioxide 20.5 L Anion Gap 14.6 BUN 37 H Creatinine 7.4 H* Est GFR ( Amer) TNP Est GFR (Non-Af Amer) TNP BUN/Creatinine Ratio 5.0 Glucose 88 Hemoglobin A1c % 4.9 Calcium 9.8 Total Bilirubin 0.4 AST 13 ALT 9 Alkaline Phosphatase 100 Total Protein 7.8 Albumin 3.5 L Globulin 4.3 Albumin/Globulin Ratio 0.8 L - Radiology Results Results: CXR: mild left lower lung infiltrate ED Assessment - Assessment General Assessment: Acute on chronic renal failure Anemia Hypertension Dementia Critical Care Time: 30 min Excludes all billable procedures: Yes This condition life threatening/high prob of deterioration: No Assessment/Comments:: CBC, CMP, UA CXR BP control Admit patient for further evaluation and management ED Septic Shock - . Is Septic Shock (SBP<90, OR Lactate>4 mmol\L) present?: No - <6hrs of presentation: Vital Signs: Vital Signs - 8 hr 01/16/ 19:30 Temp 98.6 F HR 98 RR 21 BP 179/117 O2 Sat % 96 ED Reassessment (Disposition) - Reassessment Reassessment Condition:: Unchanged - Patient Disposition Discharge/Transfer:: Acute Care w/in this hosp Admitting Medical Physician:: Farheen Wiggins ED Discharge Plan - Patient Disposition Admit/Discharge/Transfer: Acute Care w/in this hosp
[2017-01-16] MEDS: Sodium Chloride 0.45% 1,000 ML IV SCH (23:36)
[2017-01-17 00:08] VITALS: BP 133/91
[2017-01-17] MEDS ORDERED: Pneumococcal Vaccine 0.5 mL Vial IM ONE (00:36)
[2017-01-17 06:33] LABS: % EOSINOPHILS 3.2 % (0.0-5.0); % LYMPHOCYTES 13.4 % (20.0-50.0); % NEUTROPHILS 75.4 % (40.0-80.0); HEMATOCRIT 31.4 % (41.0-60); HEMOGLOBIN 10.6 gm/dL (12-16); MEAN CELL VOLUME 92.8 fl (80-99); MEAN CORPUSCULAR HEMOGLOBIN 31.3 pg (27.0-31.0); MEAN CORPUSCULAR HGB CONC 33.8 pg (28.0-36.0); MEAN PLATELET VOLUME 6.6 fl; NEUTROPHILE ABSOLUTE 5.3 Th/cmm (1.8-8.0); PLATELET COUNT 245 Th/cmm (150-400); RED BLOOD COUNT 3.38 Mil/cmm (3.80-5.80); RED CELL DISTRIBUTION WIDTH 12.3 % (11.5-20.0); WHITE BLOOD COUNT 7.1 Th/cmm (4.8-10.8)
[2017-01-17 06:45] LABS: ANION GAP 15.1 (7.0-16.0); BUN - UREA NITROGEN 37 mg/dL (7-25); BUN/CREATININE RATIO 5.2; CALCIUM SERUM 9.5 mg/dL (8.6-10.3); CARBON DIOXIDE 18.3 mEq/L (21.0-31.0); CHLORIDE 110 mEq/L (98-107); CHOLESTEROL 120 mg/dL (<200); GLUCOSE 85 mg/dL (70-105); POTASSIUM SERUM 5.4 mEq/L (3.5-5.1); SODIUM SERUM 138 mEq/L (136-145); TRIGLYCERIDES 158 mg/dL (<150)
[2017-01-17 07:41] LABS: CREATININE - SERUM 7.1 mg/dL (0.7-1.3)
[2017-01-17] MEDS ORDERED: Non-Formulary Item 1 EA (Donepezil Hcl [Donepezil Hcl Odt] 5 MG) PO SCH (09:00)
--- NOTE | 2017-01-17 09:47 | Diagnostic Imaging Report ---
CHEST X-RAY: AP view INDICATION: Hypoxia COMPARISON: 01/05/2017 FINDINGS: Slight improvement in left basal infiltrates are noted. Small left effusion is noted. Mild chronic lung changes are noted. No evidence of CHF. Heart size is normal. Mildly tortuous aorta is noted. Atherosclerosis is noted. Degenerative changes of the spine are noted. IMPRESSION: Improving left basal infiltrates. Small left effusion is noted. No evidence of nisha CHF. Atherosclerotic vascular disease.
--- NOTE | 2017-01-17 09:58 | Diagnostic Imaging Report ---
Head CT without intravenous contrast Indication: Generalized weakness Comparison: CT head on 01/02/2017 Technique: Axial images were obtained from the vertex to the skull base without IV contrast. Coronal reconstructions were made. Total DLP: 1435, [id number] FINDINGS: Exam is severely limited due to motion. No gross hemorrhage is identified however repeat examination is recommended. Atrophy and moderate white matter disease is noted. The ventricles and basal cisterns are patent. Left basal ganglia lacunar infarct is noted. No significant focal soft tissue swelling. Assessment for skull fractures limited on this exam. IMPRESSION: Severely limited exam due to motion. No gross hemorrhage is identified however, when clinically feasible repeat examination is recommended for further assessment. Atrophy. Moderate supratentorial white matter disease which is nonspecific and may be due to chronic microvessel ischemia. Left basal ganglia lacunar infarct.
[2017-01-17] MEDS: Ferrous Sulfate 325 MG TAB PO SCH ×2 (10:34→16:15)
[2017-01-17] MEDS: Sodium Chloride 0.45% 1,000 ML IV SCH ×2 (10:35→16:48)
[2017-01-17] MEDS: Pantoprazole 40 mg EC Tab PO SCH (10:35)
[2017-01-17] MEDS: Aspirin 81mg Chewable Tab PO SCH (10:35)
--- NOTE | 2017-01-17 10:38 | History & Physical ---
ADMIT DATE: 01/17/2017 CHIEF COMPLAINT: Abnormal lab results. HISTORY OF PRESENT ILLNESS: This is a 76-year-old male who was admitted to [facility] due to abnormal laboratory results with elevated of creatinine and also with generalized weakness. REVIEW OF SYSTEMS: GENERAL: This is a 76-year-old gentleman, appears as stated. The patient is a currently poor historian, able to answer some questions. Denies any fever or chills. HEAD: Denies any headache. No dizziness. EYES: No blurring of vision. No eye pain. NECK: No nuchal rigidity. No neck pain. CARDIOVASCULAR: No palpitation. No chest pain. RESPIRATORY: No shortness of breath and no coughing. GASTROINTESTINAL: No abdominal pain, no constipation, no diarrhea. MUSCULOSKELETAL: No muscle pain, no joint pain. SOCIAL HISTORY: [facility] a [facility]. FAMILY HISTORY: Unremarkable. PAST SURGICAL HISTORY: Unremarkable. PAST MEDICAL HISTORY: Includes BPH, GERD, hyperlipidemia, dementia, iron-deficiency anemia, and hypertension. PHYSICAL EXAMINATION: VITAL SIGNS: Temperature 98, heart rate of 104, respirations 18, blood pressure is 146/86, 96% on room air. HEENT: Head is atraumatic, normocephalic. Eyes: Bilateral conjunctivae are clear. Bilateral pupils are equally round and reactive. NECK: Supple. No JVD. CARDIOVASCULAR: S1 and S2, without murmur. PULMONARY: Clear to auscultation. GASTROINTESTINAL: Soft and nontender without guarding. Positive bowel sounds. MUSCULOSKELETAL: No clubbing, no cyanosis noted. ASSESSMENT: 1. Acute renal failure. 2. Generalized weakness. 3. Dementia. 4. Hypertension. 5. Anemia. 6. Hyperlipidemia. PLAN: We will admit the patient and keep the patient in Telemetry Unit. We will do CT scan of the head due to generalized weakness. We will also get a Neurology consult and also get Nephrology consult. We will do medication reconciliation accordingly. Treatment plans were discussed with the patient's nurse. Treatment plans were discussed with Dr. Wiggins. JOB# [id number]
[2017-01-17 14:55] LABS: URINE BILIRUBIN NEGATIVE (NEGATIVE); URINE BLOOD LARGE (NEGATIVE); URINE GLUCOSE (UA) NEGATIVE (NEGATIVE); URINE KETONE 15 mg/dL (NEGATIVE); URINE PH 6.5 (4.6 - 8.0); URINE PROTEIN 100 mg/dL (NEGATIVE); URINE UROBILINOGEN 0.2 E.U./dL (0.2 - 1.0)
[2017-01-17 15:02] LABS: URINE COLOR YELLOW
[2017-01-17 15:03] LABS: URINE BACTERIA FEW /hpf (NONE SEEN); URINE EPITHELIAL CELLS FEW /lpf (FEW); URINE RBC 50-100 /hpf (0-5)
[2017-01-17] MEDS: Atorvastatin Calcium 10 MG TAB PO SCH (20:12)
[2017-01-18] MEDS: Sodium Chloride 0.45% 1,000 ML IV SCH ×3 (00:54→17:04)
[2017-01-18 06:28] LABS: % BASOPHILS 1.4 % (0.0-2.0); % EOSINOPHILS 6.2 % (0.0-5.0); % LYMPHOCYTES 15.3 % (20.0-50.0); % MONOCYTES 11.2 % (2.0-10.0); % NEUTROPHILS 65.9 % (40.0-80.0); HEMATOCRIT 30.4 % (41.0-60); HEMOGLOBIN 10.1 gm/dL (12-16); MEAN CELL VOLUME 92.9 fl (80-99); MEAN CORPUSCULAR HEMOGLOBIN 30.9 pg (27.0-31.0); MEAN CORPUSCULAR HGB CONC 33.3 pg (28.0-36.0); MEAN PLATELET VOLUME 6.6 fl; NEUTROPHILE ABSOLUTE 4.4 Th/cmm (1.8-8.0); PLATELET COUNT 236 Th/cmm (150-400); RED BLOOD COUNT 3.27 Mil/cmm (3.80-5.80); RED CELL DISTRIBUTION WIDTH 12.3 % (11.5-20.0); WHITE BLOOD COUNT 6.6 Th/cmm (4.8-10.8)
[2017-01-18 06:49] LABS: ANION GAP 10.8 (7.0-16.0); BUN - UREA NITROGEN 35 mg/dL (7-25); CALCIUM SERUM 9.2 mg/dL (8.6-10.3); CARBON DIOXIDE 22.7 mEq/L (21.0-31.0); CHLORIDE 108 mEq/L (98-107); GLUCOSE 93 mg/dL (70-105); MAGNESIUM 2.1 mg/dL (1.9-2.7); PHOSPHOROUS 4.2 mg/dL (2.5-5.0); POTASSIUM SERUM 4.5 mEq/L (3.5-5.1); SODIUM SERUM 137 mEq/L (136-145)
[2017-01-18 08:08] LABS: MICROALBUMIN RANDOM RUINE 176.1 ug/mL (Not Estab.)
--- NOTE | 2017-01-18 09:02 | Diagnostic Imaging Report ---
Renal ultrasound HISTORY: Hydronephrosis. COMPARISON: Renal ultrasound on 01/02/2017 Technique: Sonography of the kidneys and urinary bladder was performed in multiple planes. FINDINGS: A exam is limited due to body habitus. The right kidney measures 13.7 x 6.5 cm. A superior pole cyst is noted measuring 3.8 cm. There is mild to moderate right hydronephrosis. The left kidney measures 12.7 x 6.3 cm. The Left renal margins are well-defined limiting assessment for focal lesions. There is a cyst within the left mid kidney measuring 3.4 x 3.4 cm. No definite evidence of left-sided hydronephrosis, however, this was limited on this exam. The urinary bladder is suboptimally distended, however, no focal abnormalities identified. The prostate gland measures 5.6 x 5.9 x 4.5 cm with mass effect upon the base of the urinary bladder. There is also echogenic nodularity of the prostate gland measured 3.9 x 3.5 cm. IMPRESSION: Limited exam due to body habitus. There is suggestion of mild to moderate right hydronephrosis. If indicated CT would further clarify. Bilateral renal lesions suggestive of cysts. Again CT would provide additional detail and assessment. Prominent prostate gland with mass effect upon the base of the urinary bladder. There is also large hyperechoic nodularity of the prostate gland. Please clinically patient's clinical findings and PSA levels.
[2017-01-18] MEDS: Aspirin 81mg Chewable Tab PO SCH (09:24)
[2017-01-18] MEDS: Ferrous Sulfate 325 MG TAB PO SCH ×2 (09:24→17:06)
[2017-01-18] MEDS: Pantoprazole 40 mg EC Tab PO SCH (09:25)
--- NOTE | 2017-01-18 10:57 | General Progress Note ---
Subjective - Review of Systems Events since last encounter: patient admitted for abnormal labs c/o weakness in no acute distress Objective - Results Result Diagrams: 01/18/17 05:58 01/18/17 05:58 Recent Labs: Laboratory Last Values WBC 6.6 Th/cmm (4.8-10.8) 01/18/17 05:58 RBC 3.27 Mil/cmm (3.80-5.80) L 01/18/17 05:58 Hgb 10.1 gm/dL (12-16) L 01/18/17 05:58 Hct 30.4 % (41.0-60) L 01/18/17 05:58 MCV 92.9 fl (80-99) 01/18/17 05:58 MCH 30.9 pg (27.0-31.0) 01/18/17 05:58 MCHC Differential 33.3 pg (28.0-36.0) 01/18/17 05:58 RDW 12.3 % (11.5-20.0) 01/18/17 05:58 Plt Count 236 Th/cmm (150-400) 01/18/17 05:58 MPV 6.6 fl 01/18/17 05:58 Neutrophils % 65.9 % (40.0-80.0) 01/18/17 05:58 Lymphocytes % 15.3 % (20.0-50.0) L 01/18/17 05:58 Monocytes % 11.2 % (2.0-10.0) H 01/18/17 05:58 Eosinophils % 6.2 % (0.0-5.0) H 01/18/17 05:58 Basophils % 1.4 % (0.0-2.0) 01/18/17 05:58 ESR 62 mm/hr (0-20) H 01/18/17 05:58 Eos Smear Source URINE 01/18/17 05:11 Eos Smear Total Cells NONE SEEN (NONE SEEN) 01/18/17 05:11 Sodium 137 mEq/L (136-145) 01/18/17 05:58 Potassium 4.5 mEq/L (3.5-5.1) 01/18/17 05:58 Chloride 108 mEq/L (98-107) H 01/18/17 05:58 Carbon Dioxide 22.7 mEq/L (21.0-31.0) 01/18/17 05:58 Anion Gap 10.8 (7.0-16.0) 01/18/17 05:58 BUN 35 mg/dL (7-25) H 01/18/17 05:58 Creatinine 7.0 mg/dL (0.7-1.3) H* 01/18/17 05:58 Est GFR ( Amer) TNP 01/18/17 05:58 Est GFR (Non-Af Amer) TNP 01/18/17 05:58 BUN/Creatinine Ratio 5.0 01/18/17 05:58 Glucose 93 mg/dL (70-105) 01/18/17 05:58 Hemoglobin A1c % 4.9 % (4.0-6.0) 01/16/17 20:44 Calcium 9.2 mg/dL (8.6-10.3) 01/18/17 05:58 Phosphorus 4.2 mg/dL (2.5-5.0) 01/18/17 05:58 Magnesium 2.1 mg/dL (1.9-2.7) 01/18/17 05:58 Total Bilirubin 0.4 mg/dL (0.3-1.0) 01/16/17 20:44 AST 13 U/L (13-39) 01/16/17 20:44 ALT 9 U/L (7-52) 01/16/17 20:44 Alkaline Phosphatase 100 U/L (34-104) 01/16/17 20:44 Ammonia 35 umol/L (16-53) 01/17/17 19:59 C-Reactive Protein 1.0 mg/dL (0.0-0.9) H 01/18/17 05:58 Total Protein 7.8 gm/dL (6.0-8.3) 01/16/17 20:44 Albumin 3.5 gm/dL (4.2-5.5) L 01/16/17 20:44 Globulin 4.3 gm/dL 01/16/17 20:44 Albumin/Globulin Ratio 0.8 (1.0-1.8) L 01/16/17 20:44 Triglycerides 158 mg/dL (<150) H 01/17/17 05:59 Cholesterol 120 mg/dL (<200) 01/17/17 05:59 LDL Cholesterol Direct 59 mg/dL (75-193) L 01/17/17 05:59 HDL Cholesterol 33 mg/dL (23-92) 01/17/17 05:59 TSH 1.62 uIU/ml (0.34-5.60) 01/17/17 05:59 Urine Source RANDOM 01/17/17 14:25 Urine Color YELLOW 01/17/17 14:25 Urine Clarity HAZY (CLEAR) 01/17/17 14:25 Urine pH 6.5 (4.6 - 8.0) 01/17/17 14:25 Ur Specific [place] 1.015 (1.005-1.030) 01/17/17 14:25 Urine Protein 100 mg/dL (NEGATIVE) H 01/17/17 14:25 Urine Glucose (UA) NEGATIVE mg/dL (NEGATIVE) 01/17/17 14:25 Urine Ketones 15 mg/dL (NEGATIVE) H 01/17/17 14:25 Urine Blood LARGE (NEGATIVE) H 01/17/17 14:25 Urine Nitrate NEGATIVE (NEGATIVE) 01/17/17 14:25 Urine Bilirubin NEGATIVE (NEGATIVE) 01/17/17 14:25 Urine Urobilinogen 0.2 E.U./dL (0.2 - 1.0) 01/17/17 14:25 Ur Leukocyte Esterase MODERATE (NEGATIVE) H 01/17/17 14:25 Urine RBC 50-100 /hpf (0-5) H 01/17/17 14:25 Urine WBC 6-10 /hpf (0-5) H 01/17/17 14:25 Ur Epithelial Cells FEW /lpf (FEW) 01/17/17 14:25 Urine Bacteria FEW /hpf (NONE SEEN) 01/17/17 14:25 Urine Creatinine 82.0 mg/dl (39.0-259.0) 01/18/17 05:11 Urine Microalbumin 176.1 ug/mL (Not Estab.) 01/17/17 14:25 - Physical Exam Vitals and I&O: Vital Signs Temp 97 F 01/18/17 04:00 Pulse 79 01/18/17 09:25 Resp 18 01/18/17 04:00 BP 164/90 01/18/17 09:25 Pulse Ox 97 01/18/17 04:00 Intake & Output 01/17/17 01/18/17 01/18/17 18:59 06:59 18:59 Intake Total 2137.083 1150 1000 Output Total 200 Balance 2137.273 981 8795 Weight (lbs) 79.832 kg 79.832 kg Intake: Intake, IV Amount 7353.381 6979 1000 Sodium Chloride 0.45% 1, 5373.240 1956 1000 000 ml @ 125 mls/hr IV . Q8H [facility] Rx#:[id number] Oral 360 150 Output: Urine 200 Other: # Voids 3 0 # Bowel Movements 1 1 Stool Characteristics Soft Liquid Black Active Medications: Current Medications Aspirin (Aspirin Chewable) 81 mg PO DAILY [facility] Stop: 03/18/17 08:59 Last Admin: 01/18/17 09:24 Dose: 81 mg Atorvastatin Calcium (Lipitor) 10 mg PO HS [facility] PRN Reason: Protocol Stop: 03/18/17 20:59 Last Admin: 01/17/17 20:12 Dose: 10 mg Citalopram Hydrobromide (Celexa) 20 mg PO DAILY [facility] PRN Reason: Protocol Stop: 03/18/17 08:59 Last Admin: 01/18/17 09:24 Dose: Not Given Donepezil HCl (Aricept) 5 mg PO DAILY [facility] Stop: 03/19/17 08:59 Last Admin: 01/18/17 09:26 Dose: 5 mg Ferrous Sulfate (Iron) 325 mg PO BID [facility] Stop: 03/18/17 08:59 Last Admin: 01/18/17 09:24 Dose: 325 mg Finasteride (Proscar) 5 mg PO DAILY [facility] PRN Reason: Protocol Stop: 03/18/17 08:59 Last Admin: 01/18/17 09:25 Dose: 5 mg Folic Acid (Folate) 1 mg PO DAILY [facility] Stop: 03/18/17 08:59 Last Admin: 01/18/17 09:24 Dose: 1 mg Sodium Chloride (Nacl 0.45%) 1,000 mls @ 125 mls/hr IV .Q8H [facility] Stop: 03/17/17 22:17 Last Admin: 01/18/17 09:21 Dose: 125 mls/hr Levetiracetam (Keppra) 500 mg PO BID [facility] Stop: 03/18/17 16:59 Last Admin: 01/18/17 09:25 Dose: 500 mg Lorazepam (Ativan) 1 mg IVP Q6HR PRN; Protocol PRN Reason: Seizure Stop: 03/18/17 09:57 Metoprolol Tartrate (Lopressor) 25 mg PO DAILY [facility] Stop: 03/18/17 08:59 Last Admin: 01/18/17 09:25 Dose: 25 mg Mirtazapine (Remeron) 15 mg PO HS [facility] PRN Reason: Protocol Stop: 03/18/17 20:59 Last Admin: 01/17/17 20:12 Dose: 15 mg Olanzapine (Zyprexa) 2.5 mg PO HS [facility] PRN Reason: Protocol Stop: 03/18/17 20:59 Last Admin: 01/17/17 20:12 Dose: 2.5 mg Pantoprazole Sodium (Protonix) 40 mg PO DAILY [facility] Stop: 03/18/17 09:29 Last Admin: 01/18/17 09:25 Dose: 40 mg Tamsulosin HCl (Flomax) 0.4 mg PO BID [facility] Stop: 03/18/17 09:29 Last Admin: 01/18/17 09:24 Dose: 0.4 mg General: No acute distress HEENT: Atraumatic Neck: Supple, Thyromegaly Cardiovascular: Regular rate Assessment/Plan - Problem List Patient Problems: All Active Problems right sided partial obastruction (Acute) - Plan Plan: cpm
--- NOTE | 2017-01-18 15:38 | Consultation ---
DATE OF CONSULTATION: 01/17/2017 NEUROLOGY CONSULTATION HISTORY OF PRESENT ILLNESS: A 76-year-old male, Neurology consult initiated because of general weakness. Then, the patient here had gone for CAT scan. Apparently had a seizure after that. He is more awake and alert now and interacting, but very weak also and confused. PAST MEDICAL HISTORY: The patient with history of renal failure now, general weakness, the patient dementia, hypertension, anemia, hyperlipidemia. The patient looks like he had a previous stroke, predominantly with right sided weakness and also some aphasia. The patient limited movement. The patient has a lot of stiffness. MEDICATIONS: As per reconciliation. Here, the patient is on aspirin 81, atorvastatin 10 mg, Celexa 20 mg, donepezil 5 mg, folic acid, lorazepam p.r.n., Remeron 15 mg, olanzapine 2.5 mg at bedtime, and Protonix. REVIEW OF SYSTEMS: Twelve point negative except for above. PHYSICAL EXAMINATION: VITAL SIGNS: Temperature 98.7, blood pressure 170/102, pulse is around 98. NECK: Supple. No bruits. HEART: Sounds S1, S2. LUNGS: Clear. NEUROLOGIC: The patient is lying in bed, awake. He will respond to his name, but his speech is very limited, mumbles, and really no coherent answers. He could not even name simple objects such as pen. He follows some simple instructions. He will lift the left arm. Pupils react to light. Difficult to know if he has any field defect. no marked facial paralysis though the face is immobile. MOTOR: He has a markedly increased tone on the right side with the deformity of the hand, probably old stroke. Lot of spasticity, unable to even flex it. Increased tone on right leg, really no movement. Left side in fact has tremor in the left arm and hand. Increased tone with the combination of rigidity, cogwheeling. Leg also has rigidity. Reflex about 1-2+. Bilateral Babinski. INVESTIGATIONS: CT scan of the head shows a lot of movement artifacts, difficult to say. There noted to be a left basal ganglion infarction. LABORATORY DATA: WBC 6.7, hemoglobin 11.2, platelets 265. Sodium 138, creatinine 7.4, BUN is 37. TSH 1.62, LDL is 59. UA positive WBCs 6-10. IMPRESSION: 1. Seizure. 2. Encephalopathy. 3. Previous stroke with right sided rigidity. 4. Parkinson's. Could be also from the medication, but we will monitor. 5. Dementia. 6. Hypertension. 7. Anemia. 8. Renal failure. PLAN: Carotid Doppler studies. Lab studies. JOB# [id number]
--- NOTE | 2017-01-18 15:42 | General Progress Note ---
Subjective - Review of Systems Service Date: 01/18/17 Subjective: alert, verbal, coherent, comfortable Objective - Results Result Diagrams: 01/18/17 05:58 01/18/17 05:58 Recent Labs: Laboratory Last Values WBC 6.6 Th/cmm (4.8-10.8) 01/18/17 05:58 RBC 3.27 Mil/cmm (3.80-5.80) L 01/18/17 05:58 Hgb 10.1 gm/dL (12-16) L 01/18/17 05:58 Hct 30.4 % (41.0-60) L 01/18/17 05:58 MCV 92.9 fl (80-99) 01/18/17 05:58 MCH 30.9 pg (27.0-31.0) 01/18/17 05:58 MCHC Differential 33.3 pg (28.0-36.0) 01/18/17 05:58 RDW 12.3 % (11.5-20.0) 01/18/17 05:58 Plt Count 236 Th/cmm (150-400) 01/18/17 05:58 MPV 6.6 fl 01/18/17 05:58 Neutrophils % 65.9 % (40.0-80.0) 01/18/17 05:58 Lymphocytes % 15.3 % (20.0-50.0) L 01/18/17 05:58 Monocytes % 11.2 % (2.0-10.0) H 01/18/17 05:58 Eosinophils % 6.2 % (0.0-5.0) H 01/18/17 05:58 Basophils % 1.4 % (0.0-2.0) 01/18/17 05:58 ESR 62 mm/hr (0-20) H 01/18/17 05:58 Eos Smear Source URINE 01/18/17 05:11 Eos Smear Total Cells NONE SEEN (NONE SEEN) 01/18/17 05:11 Sodium 137 mEq/L (136-145) 01/18/17 05:58 Potassium 4.5 mEq/L (3.5-5.1) 01/18/17 05:58 Chloride 108 mEq/L (98-107) H 01/18/17 05:58 Carbon Dioxide 22.7 mEq/L (21.0-31.0) 01/18/17 05:58 Anion Gap 10.8 (7.0-16.0) 01/18/17 05:58 BUN 35 mg/dL (7-25) H 01/18/17 05:58 Creatinine 7.0 mg/dL (0.7-1.3) H* 01/18/17 05:58 Est GFR ( Amer) TNP 01/18/17 05:58 Est GFR (Non-Af Amer) TNP 01/18/17 05:58 BUN/Creatinine Ratio 5.0 01/18/17 05:58 Glucose 93 mg/dL (70-105) 01/18/17 05:58 Hemoglobin A1c % 4.9 % (4.0-6.0) 01/16/17 20:44 Calcium 9.2 mg/dL (8.6-10.3) 01/18/17 05:58 Phosphorus 4.2 mg/dL (2.5-5.0) 01/18/17 05:58 Magnesium 2.1 mg/dL (1.9-2.7) 01/18/17 05:58 Total Bilirubin 0.4 mg/dL (0.3-1.0) 01/16/17 20:44 AST 13 U/L (13-39) 01/16/17 20:44 ALT 9 U/L (7-52) 01/16/17 20:44 Alkaline Phosphatase 100 U/L (34-104) 01/16/17 20:44 Ammonia 35 umol/L (16-53) 01/17/17 19:59 C-Reactive Protein 1.0 mg/dL (0.0-0.9) H 01/18/17 05:58 Total Protein 7.8 gm/dL (6.0-8.3) 01/16/17 20:44 Albumin 3.5 gm/dL (4.2-5.5) L 01/16/17 20:44 Globulin 4.3 gm/dL 01/16/17 20:44 Albumin/Globulin Ratio 0.8 (1.0-1.8) L 01/16/17 20:44 Triglycerides 158 mg/dL (<150) H 01/17/17 05:59 Cholesterol 120 mg/dL (<200) 01/17/17 05:59 LDL Cholesterol Direct 59 mg/dL (75-193) L 01/17/17 05:59 HDL Cholesterol 33 mg/dL (23-92) 01/17/17 05:59 TSH 1.62 uIU/ml (0.34-5.60) 01/17/17 05:59 Urine Source RANDOM 01/17/17 14:25 Urine Color YELLOW 01/17/17 14:25 Urine Clarity HAZY (CLEAR) 01/17/17 14:25 Urine pH 6.5 (4.6 - 8.0) 01/17/17 14:25 Ur Specific [place] 1.015 (1.005-1.030) 01/17/17 14:25 Urine Protein 100 mg/dL (NEGATIVE) H 01/17/17 14:25 Urine Glucose (UA) NEGATIVE mg/dL (NEGATIVE) 01/17/17 14:25 Urine Ketones 15 mg/dL (NEGATIVE) H 01/17/17 14:25 Urine Blood LARGE (NEGATIVE) H 01/17/17 14:25 Urine Nitrate NEGATIVE (NEGATIVE) 01/17/17 14:25 Urine Bilirubin NEGATIVE (NEGATIVE) 01/17/17 14:25 Urine Urobilinogen 0.2 E.U./dL (0.2 - 1.0) 01/17/17 14:25 Ur Leukocyte Esterase MODERATE (NEGATIVE) H 01/17/17 14:25 Urine RBC 50-100 /hpf (0-5) H 01/17/17 14:25 Urine WBC 6-10 /hpf (0-5) H 01/17/17 14:25 Ur Epithelial Cells FEW /lpf (FEW) 01/17/17 14:25 Urine Bacteria FEW /hpf (NONE SEEN) 01/17/17 14:25 Urine Creatinine 82.0 mg/dl (39.0-259.0) 01/18/17 05:11 Urine Microalbumin 176.1 ug/mL (Not Estab.) 01/17/17 14:25 - Physical Exam Vitals and I&O: Vital Signs Temp 97.6 F 01/18/17 12:00 Pulse 67 01/18/17 12:00 Resp 18 01/18/17 12:00 BP 149/93 01/18/17 12:00 Pulse Ox 96 01/18/17 12:00 Intake & Output 01/17/17 01/18/17 01/18/17 18:59 06:59 18:59 Intake Total 2137.083 1150 1000 Output Total 200 Balance 2137.031 636 4451 Weight (lbs) 79.832 kg 79.832 kg Intake: Intake, IV Amount 3248.230 5580 1000 Sodium Chloride 0.45% 1, 2488.219 8766 1000 000 ml @ 125 mls/hr IV . Q8H [facility] Rx#:[id number] Oral 360 150 Output: Urine 200 Other: # Voids 3 0 # Bowel Movements 1 1 Stool Characteristics Soft Liquid Black Active Medications: Current Medications Aspirin (Aspirin Chewable) 81 mg PO DAILY [facility] Stop: 03/18/17 08:59 Last Admin: 01/18/17 09:24 Dose: 81 mg Atorvastatin Calcium (Lipitor) 10 mg PO HS [facility] PRN Reason: Protocol Stop: 03/18/17 20:59 Last Admin: 01/17/17 20:12 Dose: 10 mg Citalopram Hydrobromide (Celexa) 20 mg PO DAILY [facility] PRN Reason: Protocol Stop: 03/18/17 08:59 Last Admin: 01/18/17 09:24 Dose: Not Given Donepezil HCl (Aricept) 5 mg PO DAILY [facility] Stop: 03/19/17 08:59 Last Admin: 01/18/17 09:26 Dose: 5 mg Ferrous Sulfate (Iron) 325 mg PO BID [facility] Stop: 03/18/17 08:59 Last Admin: 01/18/17 09:24 Dose: 325 mg Finasteride (Proscar) 5 mg PO DAILY [facility] PRN Reason: Protocol Stop: 03/18/17 08:59 Last Admin: 01/18/17 09:25 Dose: 5 mg Folic Acid (Folate) 1 mg PO DAILY [facility] Stop: 03/18/17 08:59 Last Admin: 01/18/17 09:24 Dose: 1 mg Sodium Chloride (Nacl 0.45%) 1,000 mls @ 125 mls/hr IV .Q8H [facility] Stop: 03/17/17 22:17 Last Admin: 01/18/17 09:21 Dose: 125 mls/hr Levetiracetam (Keppra) 500 mg PO BID [facility] Stop: 03/18/17 16:59 Last Admin: 01/18/17 09:25 Dose: 500 mg Lorazepam (Ativan) 1 mg IVP Q6HR PRN; Protocol PRN Reason: Seizure Stop: 03/18/17 09:57 Metoprolol Tartrate (Lopressor) 25 mg PO DAILY [facility] Stop: 03/18/17 08:59 Last Admin: 01/18/17 09:25 Dose: 25 mg Mirtazapine (Remeron) 15 mg PO HS [facility] PRN Reason: Protocol Stop: 03/18/17 20:59 Last Admin: 01/17/17 20:12 Dose: 15 mg Olanzapine (Zyprexa) 2.5 mg PO HS [facility] PRN Reason: Protocol Stop: 03/18/17 20:59 Last Admin: 01/17/17 20:12 Dose: 2.5 mg Pantoprazole Sodium (Protonix) 40 mg PO DAILY [facility] Stop: 03/18/17 09:29 Last Admin: 01/18/17 09:25 Dose: 40 mg Tamsulosin HCl (Flomax) 0.4 mg PO BID [facility] Stop: 03/18/17 09:29 Last Admin: 01/18/17 09:24 Dose: 0.4 mg General: Alert, No acute distress HEENT: Atraumatic, PERRLA, EOMI, Mucous membr. moist/pink Neck: Supple, Thyromegaly, +2 carotid pulse wo bruit Cardiovascular: Regular rate, Normal S1, Normal S2 Lungs: Clear to auscultation Abdomen: Bowel sounds, Soft Extremities: no Edema Neurological: Sensation intact Skin: no Rash Psych/Mental Status: Mood NL Assessment/Plan - Problem List Patient Problems: All Active Problems right sided partial obastruction (Acute) - Assessment Assessment: ESRD - Plan Plan: Lab - Result Diagrams 01/18/17 05:58 01/18/17 05:58 Current Medications Aspirin (Aspirin Chewable) 81 mg PO DAILY [facility] Stop: 03/18/17 08:59 Last Admin: 01/18/17 09:24 Dose: 81 mg Atorvastatin Calcium (Lipitor) 10 mg PO HS [facility] PRN Reason: Protocol Stop: 03/18/17 20:59 Last Admin: 01/17/17 20:12 Dose: 10 mg Citalopram Hydrobromide (Celexa) 20 mg PO DAILY [facility] PRN Reason: Protocol Stop: 03/18/17 08:59 Last Admin: 01/18/17 09:24 Dose: Not Given Donepezil HCl (Aricept) 5 mg PO DAILY [facility] Stop: 03/19/17 08:59 Last Admin: 01/18/17 09:26 Dose: 5 mg Ferrous Sulfate (Iron) 325 mg PO BID [facility] Stop: 03/18/17 08:59 Last Admin: 01/18/17 09:24 Dose: 325 mg Finasteride (Proscar) 5 mg PO DAILY [facility] PRN Reason: Protocol Stop: 03/18/17 08:59 Last Admin: 01/18/17 09:25 Dose: 5 mg Folic Acid (Folate) 1 mg PO DAILY [facility] Stop: 03/18/17 08:59 Last Admin: 01/18/17 09:24 Dose: 1 mg Sodium Chloride (Nacl 0.45%) 1,000 mls @ 125 mls/hr IV .Q8H [facility] Stop: 03/17/17 22:17 Last Admin: 01/18/17 09:21 Dose: 125 mls/hr Levetiracetam (Keppra) 500 mg PO BID [facility] Stop: 03/18/17 16:59 Last Admin: 01/18/17 09:25 Dose: 500 mg Lorazepam (Ativan) 1 mg IVP Q6HR PRN; Protocol PRN Reason: Seizure Stop: 03/18/17 09:57 Metoprolol Tartrate (Lopressor) 25 mg PO DAILY [facility] Stop: 03/18/17 08:59 Last Admin: 01/18/17 09:25 Dose: 25 mg Mirtazapine (Remeron) 15 mg PO HS [facility] PRN Reason: Protocol Stop: 03/18/17 20:59 Last Admin: 01/17/17 20:12 Dose: 15 mg Olanzapine (Zyprexa) 2.5 mg PO HS [facility] PRN Reason: Protocol Stop: 03/18/17 20:59 Last Admin: 01/17/17 20:12 Dose: 2.5 mg Pantoprazole Sodium (Protonix) 40 mg PO DAILY [facility] Stop: 03/18/17 09:29 Last Admin: 01/18/17 09:25 Dose: 40 mg Tamsulosin HCl (Flomax) 0.4 mg PO BID [facility] Stop: 03/18/17 09:29 Last Admin: 01/18/17 09:24 Dose: 0.4 mg Lab - Result Diagrams 01/18/17 05:58 01/18/17 05:58 Cr. same @ & renal us revealed mild to mod right hydronephrosis, B/L renal cysts, enlarged prostate discussed renal fnc w/ college administrator, Petra Herbert, who agreed w/ dialysis if pt. agrees. Spoke extensively w/ pt. about need for dialysis & he agreed. Request Edmundo cath placement then dialysis.
--- NOTE | 2017-01-18 17:29 | Consultation ---
DATE OF CONSULTATION: 01/17/2017 ATTENDING PHYSICIAN: Ivana Wiggins M.D. WEIGHER BULKER: Jim Frankel M.D. REASON FOR CONSULTATION: Worsening kidney function, electrolyte imbalance, and fluid management. HISTORY OF PRESENT ILLNESS: This is a 76-year-old male with past medical history of chronic kidney disease, who was brought in because of generalized weakness. A few hours prior to admission, patient was noted to be quite weak by [facility] staff. Labs were drawn. This revealed elevated creatinine. He was transported to the Emergency Room. CT scan of the head revealed supratentorial white matter disease, left basal ganglia lacunar infarct. His BUN/creatinine at the Emergency Room were 37/7.1. He was then admitted for further evaluation and management. There was no history of nausea and vomiting, diarrhea, confusion, cramping, pruritus. PAST MEDICAL HISTORY: 1. Chronic kidney disease. 2. Essential hypertension. 3. Cerebrovascular accident with right hemiplegia. 4. BPH. 5. Vascular dementia. 6. Dyslipidemia. 7. Gastritis CURRENT MEDICATIONS: This patient is currently on aspirin, atorvastatin, citalopram, donepezil, ferrous sulfate, Proscar, folic acid, hydralazine, levetiracetam, Ativan, metoprolol, mirtazapine, pantoprazole, sodium polystyrene, tamsulosin, ALLERGIES: No known drug allergies. SOCIAL AND FAMILY HISTORY: I was not able to obtain directly from the patient because he remains nonverbal. REVIEW OF SYSTEMS: Again, I was unable to decipher directly from the patient because of above reasons. PHYSICAL EXAMINATION: GENERAL: The patient is awake, not in any form of distress. VITAL SIGNS: His blood pressure is 154/80, pulse 75, temperature 97.7 degrees. SKIN: Good turgor, warm, no rash, no jaundice appreciated. HEENT: Head normocephalic, atraumatic. Eyes: Extraocular muscles intact. Pupils equal, round, reactive to light and accommodates. Anicteric sclerae. Bertha conjunctivae. Nose, midline nasal septum. Mouth, moist mucosa with adequate dentition. NECK: Supple, no adenopathy, no thyromegaly, no bruits. Trachea palpated in the midline. CHEST AND CVS: S1, S2. No rub, murmur, or gallop appreciated. Point of maximal impulse fifth intercostal space, left midclavicular line. No abdominal or femoral bruits appreciated. LUNGS: Equal expansion. No use of accessory muscles. No supraclavicular retractions. Decreased breath sounds, few rhonchi, but no rales or wheezes appreciated. ABDOMEN: Mildly globular, soft. Positive for bowel sounds. No bruits, either diastolic or systolic. RECTAL: The patient refused. GENITOURINARY: Questionable palpable bladder, with male genitalia within normal limits. EXTREMITIES: No evidence of any edema, cyanosis or clubbing with palpable femoral, but unable to fully appreciate popliteal and dorsalis pedis pulses. NEUROLOGIC: The patient is awake, but as mentioned is confused, so I am not able to proceed with my neuro exam. LABORATORY DATA: Sodium 138, potassium 5.8, chloride 110, bicarb 18.3, BUN 37. Creatinine 7.1. Glucose 85, calcium 9.5, albumin 3.5. White count is 7.1, hemoglobin 10.6, hematocrit 31.4, platelets is 245, polys 75.4%. IMPRESSION: 1. Acute kidney injury on chronic kidney disease stage 5. The patient's chronic kidney disease is secondary to chronic obstructive uropathy with some underlying hypertensive nephrosclerosis. Acute kidney injury is likely due to acute obstructive uropathy as well as complicated UTI giving rise to acute interstitial nephritis. 2. Complicated UTI. 3. Hyperkalemia secondary to kidney failure. 4. Anemia of chronic kidney disease. 5. Anion gap metabolic acidosis. 6. Essential hypertension. 7. Left basal ganglia lacunar infarct with history of right hemiplegia. 8. BPH. 9. Vascular dementia. 10. Dyslipidemia. 11. Gastritis. PLAN: 1. Continue with IV fluids for now. 2. Awaiting renal ultrasound. 3. Urine sodium, eosinophils and creatinine. 4. Urine microalbumin to creatinine ratio. 5. Request PSA level. 6. Follow up urine C and S. 7. Start Rocephin to cover for complicated UTI. 8. Control blood pressure. Thank you Dr. Wiggins for this consult. I will follow the patient closely with you. JOB# [id number]
[2017-01-18] MEDS ORDERED: Albumin 25% 25gm/100mL 25 GM/100 ML BTL IV PRN (17:33)
[2017-01-18] MEDS ORDERED: Heparin Sod 1,000 Units/mL 10ml HD PRN (17:37)
[2017-01-18] MEDS: Atorvastatin Calcium 10 MG TAB PO SCH (21:05)
--- NOTE | 2017-01-19 08:22 | Diagnostic Imaging Report ---
Exam: Ultrasound exam extracranial carotid circulation. HISTORY: CVA. Findings: The study was performed utilizing color Doppler technique. No prior studies available for comparison. The study demonstrates no evidence for stenosis or alteration of flow bilaterally. Antegrade flow is noted vertebral circulation. The right internal carotid artery ratio is 0.84 the left internal carotid ratio 1.9. IMPRESSION: no evidence of significant stenosis or alteration of flow of extracranial carotid circulation bilaterally.
[2017-01-19 08:25] LABS: % BASOPHILS 0.1 % (0.0-2.0); % EOSINOPHILS 6.6 % (0.0-5.0); % LYMPHOCYTES 16.8 % (20.0-50.0); % NEUTROPHILS 65.5 % (40.0-80.0); HEMATOCRIT 30.9 % (41.0-60); HEMOGLOBIN 10.4 gm/dL (12-16); MEAN CELL VOLUME 93.2 fl (80-99); MEAN CORPUSCULAR HEMOGLOBIN 31.5 pg (27.0-31.0); MEAN CORPUSCULAR HGB CONC 33.8 pg (28.0-36.0); NEUTROPHILE ABSOLUTE 3.9 Th/cmm (1.8-8.0); PLATELET COUNT 225 Th/cmm (150-400); RED BLOOD COUNT 3.31 Mil/cmm (3.80-5.80); RED CELL DISTRIBUTION WIDTH 12.3 % (11.5-20.0); WHITE BLOOD COUNT 5.9 Th/cmm (4.8-10.8)
[2017-01-19 08:49] LABS: ANION GAP 12.5 (7.0-16.0); BUN - UREA NITROGEN 33 mg/dL (7-25); BUN/CREATININE RATIO 5.4; CALCIUM SERUM 9.7 mg/dL (8.6-10.3); CARBON DIOXIDE 19.6 mEq/L (21.0-31.0); CHLORIDE 108 mEq/L (98-107); GLUCOSE 80 mg/dL (70-105); POTASSIUM SERUM 4.1 mEq/L (3.5-5.1); SODIUM SERUM 136 mEq/L (136-145)
[2017-01-19 08:57] LABS: CREATININE - SERUM 6.1 mg/dL (0.7-1.3)
[2017-01-19] MEDS: Ferrous Sulfate 325 MG TAB PO SCH ×2 (09:28→17:18)
[2017-01-19] MEDS: Pantoprazole 40 mg EC Tab PO SCH (09:29)
[2017-01-19] MEDS: Aspirin 81mg Chewable Tab PO SCH (09:29)
--- NOTE | 2017-01-19 13:25 | General Progress Note ---
Subjective - Review of Systems Service Date: 01/19/17 Subjective: alert, verbal, coherent, comfortable Objective - Results Result Diagrams: 01/19/17 07:51 01/19/17 07:51 Recent Labs: Laboratory Last Values WBC 5.9 Th/cmm (4.8-10.8) 01/19/17 07:51 RBC 3.31 Mil/cmm (3.80-5.80) L 01/19/17 07:51 Hgb 10.4 gm/dL (12-16) L 01/19/17 07:51 Hct 30.9 % (41.0-60) L 01/19/17 07:51 MCV 93.2 fl (80-99) 01/19/17 07:51 MCH 31.5 pg (27.0-31.0) H 01/19/17 07:51 MCHC Differential 33.8 pg (28.0-36.0) 01/19/17 07:51 RDW 12.3 % (11.5-20.0) 01/19/17 07:51 Plt Count 225 Th/cmm (150-400) 01/19/17 07:51 MPV 7.0 fl 01/19/17 07:51 Neutrophils % 65.5 % (40.0-80.0) 01/19/17 07:51 Lymphocytes % 16.8 % (20.0-50.0) L 01/19/17 07:51 Monocytes % 11.0 % (2.0-10.0) H 01/19/17 07:51 Eosinophils % 6.6 % (0.0-5.0) H 01/19/17 07:51 Basophils % 0.1 % (0.0-2.0) 01/19/17 07:51 ESR 62 mm/hr (0-20) H 01/18/17 05:58 Eos Smear Source URINE 01/18/17 05:11 Eos Smear Total Cells NONE SEEN (NONE SEEN) 01/18/17 05:11 Sodium 136 mEq/L (136-145) 01/19/17 07:51 Potassium 4.1 mEq/L (3.5-5.1) 01/19/17 07:51 Chloride 108 mEq/L (98-107) H 01/19/17 07:51 Carbon Dioxide 19.6 mEq/L (21.0-31.0) L 01/19/17 07:51 Anion Gap 12.5 (7.0-16.0) 01/19/17 07:51 BUN 33 mg/dL (7-25) H 01/19/17 07:51 Creatinine 6.1 mg/dL (0.7-1.3) H* 01/19/17 07:51 Est GFR ( Amer) TNP 01/19/17 07:51 Est GFR (Non-Af Amer) TNP 01/19/17 07:51 BUN/Creatinine Ratio 5.4 01/19/17 07:51 Glucose 80 mg/dL (70-105) 01/19/17 07:51 Hemoglobin A1c % 4.9 % (4.0-6.0) 01/16/17 20:44 Calcium 9.7 mg/dL (8.6-10.3) 01/19/17 07:51 Phosphorus 4.2 mg/dL (2.5-5.0) 01/18/17 05:58 Magnesium 2.1 mg/dL (1.9-2.7) 01/18/17 05:58 Total Bilirubin 0.4 mg/dL (0.3-1.0) 01/16/17 20:44 AST 13 U/L (13-39) 01/16/17 20:44 ALT 9 U/L (7-52) 01/16/17 20:44 Alkaline Phosphatase 100 U/L (34-104) 01/16/17 20:44 Ammonia 35 umol/L (16-53) 01/17/17 19:59 C-Reactive Protein 1.0 mg/dL (0.0-0.9) H 01/18/17 05:58 Total Protein 7.8 gm/dL (6.0-8.3) 01/16/17 20:44 Albumin 3.5 gm/dL (4.2-5.5) L 01/16/17 20:44 Globulin 4.3 gm/dL 01/16/17 20:44 Albumin/Globulin Ratio 0.8 (1.0-1.8) L 01/16/17 20:44 Triglycerides 158 mg/dL (<150) H 01/17/17 05:59 Cholesterol 120 mg/dL (<200) 01/17/17 05:59 LDL Cholesterol Direct 59 mg/dL (75-193) L 01/17/17 05:59 HDL Cholesterol 33 mg/dL (23-92) 01/17/17 05:59 TSH 1.62 uIU/ml (0.34-5.60) 01/17/17 05:59 Urine Source RANDOM 01/17/17 14:25 Urine Color YELLOW 01/17/17 14:25 Urine Clarity HAZY (CLEAR) 01/17/17 14:25 Urine pH 6.5 (4.6 - 8.0) 01/17/17 14:25 Ur Specific [place] 1.015 (1.005-1.030) 01/17/17 14:25 Urine Protein 100 mg/dL (NEGATIVE) H 01/17/17 14:25 Urine Glucose (UA) NEGATIVE mg/dL (NEGATIVE) 01/17/17 14:25 Urine Ketones 15 mg/dL (NEGATIVE) H 01/17/17 14:25 Urine Blood LARGE (NEGATIVE) H 01/17/17 14:25 Urine Nitrate NEGATIVE (NEGATIVE) 01/17/17 14:25 Urine Bilirubin NEGATIVE (NEGATIVE) 01/17/17 14:25 Urine Urobilinogen 0.2 E.U./dL (0.2 - 1.0) 01/17/17 14:25 Ur Leukocyte Esterase MODERATE (NEGATIVE) H 01/17/17 14:25 Urine RBC 50-100 /hpf (0-5) H 01/17/17 14:25 Urine WBC 6-10 /hpf (0-5) H 01/17/17 14:25 Ur Epithelial Cells FEW /lpf (FEW) 01/17/17 14:25 Urine Bacteria FEW /hpf (NONE SEEN) 01/17/17 14:25 Urine Creatinine 82.0 mg/dl (39.0-259.0) 01/18/17 05:11 Urine Microalbumin 176.1 ug/mL (Not Estab.) 01/17/17 14:25 - Physical Exam Vitals and I&O: Vital Signs Temp 97.2 F 01/19/17 10:30 Pulse 68 01/19/17 10:30 Resp 19 01/19/17 13:15 BP 175/91 01/19/17 09:29 Pulse Ox 98 01/19/17 10:30 Intake & Output 01/18/17 01/19/17 01/19/17 18:59 06:59 18:59 Intake Total 1000 580 Balance 1000 580 Weight (lbs) 84.277 kg Intake: Intake, IV Amount 1000 Sodium Chloride 0.45% 1, 1000 000 ml @ 125 mls/hr IV . Q8H [facility] Rx#:[id number] Oral 580 Other: # Voids 3 # Bowel Movements 0 Active Medications: Current Medications Aspirin (Aspirin Chewable) 81 mg PO DAILY [facility] Stop: 03/18/17 08:59 Last Admin: 01/19/17 09:29 Dose: 81 mg Atorvastatin Calcium (Lipitor) 10 mg PO HS [facility] PRN Reason: Protocol Stop: 03/18/17 20:59 Last Admin: 01/18/17 21:05 Dose: 10 mg Citalopram Hydrobromide (Celexa) 20 mg PO DAILY [facility] PRN Reason: Protocol Stop: 03/18/17 08:59 Last Admin: 01/19/17 09:29 Dose: 20 mg Donepezil HCl (Aricept) 5 mg PO DAILY [facility] Stop: 03/19/17 08:59 Last Admin: 01/19/17 09:28 Dose: 5 mg Ferrous Sulfate (Iron) 325 mg PO BID [facility] Stop: 03/18/17 08:59 Last Admin: 01/19/17 09:28 Dose: 325 mg Finasteride (Proscar) 5 mg PO DAILY [facility] PRN Reason: Protocol Stop: 03/18/17 08:59 Last Admin: 01/19/17 09:29 Dose: 5 mg Folic Acid (Folate) 1 mg PO DAILY [facility] Stop: 03/18/17 08:59 Last Admin: 01/19/17 09:28 Dose: 1 mg Heparin Sodium (Porcine) (Heparin Sodium) 0 units HD PRN PRN PRN Reason: for hemodialysis Stop: 01/25/17 17:36 Heparin Sodium (Porcine) (Heparin) 5,000 units HD PRN PRN PRN Reason: DIALYSIS PORTS Stop: 03/20/17 00:00 Albumin Human (Albuminar 25%) 25 gm in 100 mls @ 50 mls/hr IV PRN PRN PRN Reason: BP Support During HD Sodium Chloride (Nacl 0.45%) 1,000 mls @ 40 mls/hr IV .Q24H [facility] Stop: 03/17/17 22:17 Last Admin: 01/18/17 17:04 Dose: 40 mls/hr Levetiracetam (Keppra) 500 mg PO BID [facility] Stop: 03/18/17 16:59 Last Admin: 01/19/17 09:29 Dose: 500 mg Lorazepam (Ativan) 1 mg IVP Q6HR PRN; Protocol PRN Reason: Seizure Stop: 03/18/17 09:57 Metoprolol Tartrate (Lopressor) 25 mg PO DAILY [facility] Stop: 03/18/17 08:59 Last Admin: 01/19/17 09:29 Dose: 25 mg Mirtazapine (Remeron) 15 mg PO HS [facility] PRN Reason: Protocol Stop: 03/18/17 20:59 Last Admin: 01/18/17 21:06 Dose: 15 mg Miscellaneous (Clinical Monitoring) 1 ea [facility] DAILY PRN PRN Reason: RENAL Stop: 03/20/17 10:37 Olanzapine (Zyprexa) 2.5 mg PO HS [facility] PRN Reason: Protocol Stop: 03/18/17 20:59 Last Admin: 01/18/17 21:06 Dose: 2.5 mg Pantoprazole Sodium (Protonix) 40 mg PO DAILY [facility] Stop: 03/18/17 09:29 Last Admin: 01/19/17 09:29 Dose: 40 mg Tamsulosin HCl (Flomax) 0.4 mg PO BID [facility] Stop: 03/18/17 09:29 Last Admin: 01/19/17 09:29 Dose: 0.4 mg General: Alert, No acute distress HEENT: Atraumatic, PERRLA, EOMI, Mucous membr. 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 - Plan Plan: Lab - Result Diagrams 01/18/17 05:58 01/18/17 05:58 Current Medications Aspirin (Aspirin Chewable) 81 mg PO DAILY [facility] Stop: 03/18/17 08:59 Last Admin: 01/18/17 09:24 Dose: 81 mg Atorvastatin Calcium (Lipitor) 10 mg PO HS [facility] PRN Reason: Protocol Stop: 03/18/17 20:59 Last Admin: 01/17/17 20:12 Dose: 10 mg Citalopram Hydrobromide (Celexa) 20 mg PO DAILY [facility] PRN Reason: Protocol Stop: 03/18/17 08:59 Last Admin: 01/18/17 09:24 Dose: Not Given Donepezil HCl (Aricept) 5 mg PO DAILY [facility] Stop: 03/19/17 08:59 Last Admin: 01/18/17 09:26 Dose: 5 mg Ferrous Sulfate (Iron) 325 mg PO BID [facility] Stop: 03/18/17 08:59 Last Admin: 01/18/17 09:24 Dose: 325 mg Finasteride (Proscar) 5 mg PO DAILY [facility] PRN Reason: Protocol Stop: 03/18/17 08:59 Last Admin: 01/18/17 09:25 Dose: 5 mg Folic Acid (Folate) 1 mg PO DAILY [facility] Stop: 03/18/17 08:59 Last Admin: 01/18/17 09:24 Dose: 1 mg Sodium Chloride (Nacl 0.45%) 1,000 mls @ 125 mls/hr IV .Q8H [facility] Stop: 03/17/17 22:17 Last Admin: 01/18/17 09:21 Dose: 125 mls/hr Levetiracetam (Keppra) 500 mg PO BID [facility] Stop: 03/18/17 16:59 Last Admin: 01/18/17 09:25 Dose: 500 mg Lorazepam (Ativan) 1 mg IVP Q6HR PRN; Protocol PRN Reason: Seizure Stop: 03/18/17 09:57 Metoprolol Tartrate (Lopressor) 25 mg PO DAILY [facility] Stop: 03/18/17 08:59 Last Admin: 01/18/17 09:25 Dose: 25 mg Mirtazapine (Remeron) 15 mg PO HS [facility] PRN Reason: Protocol Stop: 03/18/17 20:59 Last Admin: 01/17/17 20:12 Dose: 15 mg Olanzapine (Zyprexa) 2.5 mg PO HS [facility] PRN Reason: Protocol Stop: 03/18/17 20:59 Last Admin: 01/17/17 20:12 Dose: 2.5 mg Pantoprazole Sodium (Protonix) 40 mg PO DAILY [facility] Stop: 03/18/17 09:29 Last Admin: 01/18/17 09:25 Dose: 40 mg Tamsulosin HCl (Flomax) 0.4 mg PO BID [facility] Stop: 03/18/17 09:29 Last Admin: 01/18/17 09:24 Dose: 0.4 mg Lab - Result Diagrams 01/19/17 07:51 01/19/17 07:51 Cr. better @ 6.1 renal us revealed mild to mod right hydronephrosis, B/L renal cysts, enlarged prostate discussed renal fnc w/ retirement administrator, Petra Herbert, who agreed w/ dialysis if pt. agrees. Spoke extensively w/ pt. about need for dialysis & he agreed. Request Edmundo cath placement then dialysis.
--- NOTE | 2017-01-19 14:36 | General Progress Note ---
Subjective - Review of Systems Events since last encounter: patient alert verbal , comfortable Objective - Results Result Diagrams: 01/19/17 07:51 01/19/17 07:51 Recent Labs: Laboratory Last Values WBC 5.9 Th/cmm (4.8-10.8) 01/19/17 07:51 RBC 3.31 Mil/cmm (3.80-5.80) L 01/19/17 07:51 Hgb 10.4 gm/dL (12-16) L 01/19/17 07:51 Hct 30.9 % (41.0-60) L 01/19/17 07:51 MCV 93.2 fl (80-99) 01/19/17 07:51 MCH 31.5 pg (27.0-31.0) H 01/19/17 07:51 MCHC Differential 33.8 pg (28.0-36.0) 01/19/17 07:51 RDW 12.3 % (11.5-20.0) 01/19/17 07:51 Plt Count 225 Th/cmm (150-400) 01/19/17 07:51 MPV 7.0 fl 01/19/17 07:51 Neutrophils % 65.5 % (40.0-80.0) 01/19/17 07:51 Lymphocytes % 16.8 % (20.0-50.0) L 01/19/17 07:51 Monocytes % 11.0 % (2.0-10.0) H 01/19/17 07:51 Eosinophils % 6.6 % (0.0-5.0) H 01/19/17 07:51 Basophils % 0.1 % (0.0-2.0) 01/19/17 07:51 ESR 62 mm/hr (0-20) H 01/18/17 05:58 Eos Smear Source URINE 01/18/17 05:11 Eos Smear Total Cells NONE SEEN (NONE SEEN) 01/18/17 05:11 Sodium 136 mEq/L (136-145) 01/19/17 07:51 Potassium 4.1 mEq/L (3.5-5.1) 01/19/17 07:51 Chloride 108 mEq/L (98-107) H 01/19/17 07:51 Carbon Dioxide 19.6 mEq/L (21.0-31.0) L 01/19/17 07:51 Anion Gap 12.5 (7.0-16.0) 01/19/17 07:51 BUN 33 mg/dL (7-25) H 01/19/17 07:51 Creatinine 6.1 mg/dL (0.7-1.3) H* 01/19/17 07:51 Est GFR ( Amer) TNP 01/19/17 07:51 Est GFR (Non-Af Amer) TNP 01/19/17 07:51 BUN/Creatinine Ratio 5.4 01/19/17 07:51 Glucose 80 mg/dL (70-105) 01/19/17 07:51 Hemoglobin A1c % 4.9 % (4.0-6.0) 01/16/17 20:44 Calcium 9.7 mg/dL (8.6-10.3) 01/19/17 07:51 Phosphorus 4.2 mg/dL (2.5-5.0) 01/18/17 05:58 Magnesium 2.1 mg/dL (1.9-2.7) 01/18/17 05:58 Total Bilirubin 0.4 mg/dL (0.3-1.0) 01/16/17 20:44 AST 13 U/L (13-39) 01/16/17 20:44 ALT 9 U/L (7-52) 01/16/17 20:44 Alkaline Phosphatase 100 U/L (34-104) 01/16/17 20:44 Ammonia 35 umol/L (16-53) 01/17/17 19:59 C-Reactive Protein 1.0 mg/dL (0.0-0.9) H 01/18/17 05:58 Total Protein 7.8 gm/dL (6.0-8.3) 01/16/17 20:44 Albumin 3.5 gm/dL (4.2-5.5) L 01/16/17 20:44 Globulin 4.3 gm/dL 01/16/17 20:44 Albumin/Globulin Ratio 0.8 (1.0-1.8) L 01/16/17 20:44 Triglycerides 158 mg/dL (<150) H 01/17/17 05:59 Cholesterol 120 mg/dL (<200) 01/17/17 05:59 LDL Cholesterol Direct 59 mg/dL (75-193) L 01/17/17 05:59 HDL Cholesterol 33 mg/dL (23-92) 01/17/17 05:59 TSH 1.62 uIU/ml (0.34-5.60) 01/17/17 05:59 Urine Source RANDOM 01/17/17 14:25 Urine Color YELLOW 01/17/17 14:25 Urine Clarity HAZY (CLEAR) 01/17/17 14:25 Urine pH 6.5 (4.6 - 8.0) 01/17/17 14:25 Ur Specific [place] 1.015 (1.005-1.030) 01/17/17 14:25 Urine Protein 100 mg/dL (NEGATIVE) H 01/17/17 14:25 Urine Glucose (UA) NEGATIVE mg/dL (NEGATIVE) 01/17/17 14:25 Urine Ketones 15 mg/dL (NEGATIVE) H 01/17/17 14:25 Urine Blood LARGE (NEGATIVE) H 01/17/17 14:25 Urine Nitrate NEGATIVE (NEGATIVE) 01/17/17 14:25 Urine Bilirubin NEGATIVE (NEGATIVE) 01/17/17 14:25 Urine Urobilinogen 0.2 E.U./dL (0.2 - 1.0) 01/17/17 14:25 Ur Leukocyte Esterase MODERATE (NEGATIVE) H 01/17/17 14:25 Urine RBC 50-100 /hpf (0-5) H 01/17/17 14:25 Urine WBC 6-10 /hpf (0-5) H 01/17/17 14:25 Ur Epithelial Cells FEW /lpf (FEW) 01/17/17 14:25 Urine Bacteria FEW /hpf (NONE SEEN) 01/17/17 14:25 Urine Creatinine 82.0 mg/dl (39.0-259.0) 01/18/17 05:11 Urine Microalbumin 176.1 ug/mL (Not Estab.) 01/17/17 14:25 - Physical Exam Vitals and I&O: Vital Signs Temp 97.2 F 01/19/17 10:30 Pulse 68 01/19/17 10:30 Resp 19 01/19/17 13:15 BP 175/91 01/19/17 09:29 Pulse Ox 98 01/19/17 10:30 Intake & Output 01/18/17 01/19/17 01/19/17 18:59 06:59 18:59 Intake Total 1000 580 Balance 1000 580 Weight (lbs) 84.277 kg Intake: Intake, IV Amount 1000 Sodium Chloride 0.45% 1, 1000 000 ml @ 125 mls/hr IV . Q8H [facility] Rx#:[id number] Oral 580 Other: # Voids 3 # Bowel Movements 0 Active Medications: Current Medications Aspirin (Aspirin Chewable) 81 mg PO DAILY [facility] Stop: 03/18/17 08:59 Last Admin: 01/19/17 09:29 Dose: 81 mg Atorvastatin Calcium (Lipitor) 10 mg PO HS [facility] PRN Reason: Protocol Stop: 03/18/17 20:59 Last Admin: 01/18/17 21:05 Dose: 10 mg Citalopram Hydrobromide (Celexa) 20 mg PO DAILY [facility] PRN Reason: Protocol Stop: 03/18/17 08:59 Last Admin: 01/19/17 09:29 Dose: 20 mg Donepezil HCl (Aricept) 5 mg PO DAILY [facility] Stop: 03/19/17 08:59 Last Admin: 01/19/17 09:28 Dose: 5 mg Ferrous Sulfate (Iron) 325 mg PO BID [facility] Stop: 03/18/17 08:59 Last Admin: 01/19/17 09:28 Dose: 325 mg Finasteride (Proscar) 5 mg PO DAILY [facility] PRN Reason: Protocol Stop: 03/18/17 08:59 Last Admin: 01/19/17 09:29 Dose: 5 mg Folic Acid (Folate) 1 mg PO DAILY [facility] Stop: 03/18/17 08:59 Last Admin: 01/19/17 09:28 Dose: 1 mg Heparin Sodium (Porcine) (Heparin Sodium) 0 units HD PRN PRN PRN Reason: for hemodialysis Stop: 01/25/17 17:36 Heparin Sodium (Porcine) (Heparin) 5,000 units HD PRN PRN PRN Reason: DIALYSIS PORTS Stop: 03/20/17 00:00 Albumin Human (Albuminar 25%) 25 gm in 100 mls @ 50 mls/hr IV PRN PRN PRN Reason: BP Support During HD Sodium Chloride (Nacl 0.45%) 1,000 mls @ 40 mls/hr IV .Q24H [facility] Stop: 03/17/17 22:17 Last Admin: 01/18/17 17:04 Dose: 40 mls/hr Levetiracetam (Keppra) 500 mg PO BID [facility] Stop: 03/18/17 16:59 Last Admin: 01/19/17 09:29 Dose: 500 mg Lorazepam (Ativan) 1 mg IVP Q6HR PRN; Protocol PRN Reason: Seizure Stop: 03/18/17 09:57 Metoprolol Tartrate (Lopressor) 25 mg PO DAILY [facility] Stop: 03/18/17 08:59 Last Admin: 01/19/17 09:29 Dose: 25 mg Mirtazapine (Remeron) 15 mg PO HS [facility] PRN Reason: Protocol Stop: 03/18/17 20:59 Last Admin: 01/18/17 21:06 Dose: 15 mg Miscellaneous (Clinical Monitoring) 1 ea [facility] DAILY PRN PRN Reason: RENAL Stop: 03/20/17 10:37 Olanzapine (Zyprexa) 2.5 mg PO HS [facility] PRN Reason: Protocol Stop: 03/18/17 20:59 Last Admin: 01/18/17 21:06 Dose: 2.5 mg Pantoprazole Sodium (Protonix) 40 mg PO DAILY [facility] Stop: 03/18/17 09:29 Last Admin: 01/19/17 09:29 Dose: 40 mg Tamsulosin HCl (Flomax) 0.4 mg PO BID [facility] Stop: 03/18/17 09:29 Last Admin: 01/19/17 09:29 Dose: 0.4 mg General: Alert, No acute distress HEENT: Atraumatic, PERRLA, EOMI, Mucous membr. moist/pink Neck: Supple, Thyromegaly, +2 carotid pulse wo bruit Cardiovascular: Regular rate, Normal S1, Normal S2 Lungs: Clear to auscultation Abdomen: Bowel sounds, Soft Extremities: no Edema Neurological: Sensation intact Skin: no Rash Psych/Mental Status: Mood NL Assessment/Plan - Problem List Patient Problems: All Active Problems right sided partial obastruction (Acute) - Plan Plan: cpm
--- NOTE | 2017-01-19 14:37 | General Progress Note ---
Subjective - Review of Systems Events since last encounter: patient alert verbal comfortable Objective - Results Result Diagrams: 01/19/17 07:51 01/19/17 07:51 Recent Labs: Laboratory Last Values WBC 5.9 Th/cmm (4.8-10.8) 01/19/17 07:51 RBC 3.31 Mil/cmm (3.80-5.80) L 01/19/17 07:51 Hgb 10.4 gm/dL (12-16) L 01/19/17 07:51 Hct 30.9 % (41.0-60) L 01/19/17 07:51 MCV 93.2 fl (80-99) 01/19/17 07:51 MCH 31.5 pg (27.0-31.0) H 01/19/17 07:51 MCHC Differential 33.8 pg (28.0-36.0) 01/19/17 07:51 RDW 12.3 % (11.5-20.0) 01/19/17 07:51 Plt Count 225 Th/cmm (150-400) 01/19/17 07:51 MPV 7.0 fl 01/19/17 07:51 Neutrophils % 65.5 % (40.0-80.0) 01/19/17 07:51 Lymphocytes % 16.8 % (20.0-50.0) L 01/19/17 07:51 Monocytes % 11.0 % (2.0-10.0) H 01/19/17 07:51 Eosinophils % 6.6 % (0.0-5.0) H 01/19/17 07:51 Basophils % 0.1 % (0.0-2.0) 01/19/17 07:51 ESR 62 mm/hr (0-20) H 01/18/17 05:58 Eos Smear Source URINE 01/18/17 05:11 Eos Smear Total Cells NONE SEEN (NONE SEEN) 01/18/17 05:11 Sodium 136 mEq/L (136-145) 01/19/17 07:51 Potassium 4.1 mEq/L (3.5-5.1) 01/19/17 07:51 Chloride 108 mEq/L (98-107) H 01/19/17 07:51 Carbon Dioxide 19.6 mEq/L (21.0-31.0) L 01/19/17 07:51 Anion Gap 12.5 (7.0-16.0) 01/19/17 07:51 BUN 33 mg/dL (7-25) H 01/19/17 07:51 Creatinine 6.1 mg/dL (0.7-1.3) H* 01/19/17 07:51 Est GFR ( Amer) TNP 01/19/17 07:51 Est GFR (Non-Af Amer) TNP 01/19/17 07:51 BUN/Creatinine Ratio 5.4 01/19/17 07:51 Glucose 80 mg/dL (70-105) 01/19/17 07:51 Hemoglobin A1c % 4.9 % (4.0-6.0) 01/16/17 20:44 Calcium 9.7 mg/dL (8.6-10.3) 01/19/17 07:51 Phosphorus 4.2 mg/dL (2.5-5.0) 01/18/17 05:58 Magnesium 2.1 mg/dL (1.9-2.7) 01/18/17 05:58 Total Bilirubin 0.4 mg/dL (0.3-1.0) 01/16/17 20:44 AST 13 U/L (13-39) 01/16/17 20:44 ALT 9 U/L (7-52) 01/16/17 20:44 Alkaline Phosphatase 100 U/L (34-104) 01/16/17 20:44 Ammonia 35 umol/L (16-53) 01/17/17 19:59 C-Reactive Protein 1.0 mg/dL (0.0-0.9) H 01/18/17 05:58 Total Protein 7.8 gm/dL (6.0-8.3) 01/16/17 20:44 Albumin 3.5 gm/dL (4.2-5.5) L 01/16/17 20:44 Globulin 4.3 gm/dL 01/16/17 20:44 Albumin/Globulin Ratio 0.8 (1.0-1.8) L 01/16/17 20:44 Triglycerides 158 mg/dL (<150) H 01/17/17 05:59 Cholesterol 120 mg/dL (<200) 01/17/17 05:59 LDL Cholesterol Direct 59 mg/dL (75-193) L 01/17/17 05:59 HDL Cholesterol 33 mg/dL (23-92) 01/17/17 05:59 TSH 1.62 uIU/ml (0.34-5.60) 01/17/17 05:59 Urine Source RANDOM 01/17/17 14:25 Urine Color YELLOW 01/17/17 14:25 Urine Clarity HAZY (CLEAR) 01/17/17 14:25 Urine pH 6.5 (4.6 - 8.0) 01/17/17 14:25 Ur Specific [place] 1.015 (1.005-1.030) 01/17/17 14:25 Urine Protein 100 mg/dL (NEGATIVE) H 01/17/17 14:25 Urine Glucose (UA) NEGATIVE mg/dL (NEGATIVE) 01/17/17 14:25 Urine Ketones 15 mg/dL (NEGATIVE) H 01/17/17 14:25 Urine Blood LARGE (NEGATIVE) H 01/17/17 14:25 Urine Nitrate NEGATIVE (NEGATIVE) 01/17/17 14:25 Urine Bilirubin NEGATIVE (NEGATIVE) 01/17/17 14:25 Urine Urobilinogen 0.2 E.U./dL (0.2 - 1.0) 01/17/17 14:25 Ur Leukocyte Esterase MODERATE (NEGATIVE) H 01/17/17 14:25 Urine RBC 50-100 /hpf (0-5) H 01/17/17 14:25 Urine WBC 6-10 /hpf (0-5) H 01/17/17 14:25 Ur Epithelial Cells FEW /lpf (FEW) 01/17/17 14:25 Urine Bacteria FEW /hpf (NONE SEEN) 01/17/17 14:25 Urine Creatinine 82.0 mg/dl (39.0-259.0) 01/18/17 05:11 Urine Microalbumin 176.1 ug/mL (Not Estab.) 01/17/17 14:25 - Physical Exam Vitals and I&O: Vital Signs Temp 97.2 F 01/19/17 10:30 Pulse 68 01/19/17 10:30 Resp 19 01/19/17 13:15 BP 175/91 01/19/17 09:29 Pulse Ox 98 01/19/17 10:30 Intake & Output 11/26/17 11/27/17 11/27/17 18:59 06:59 18:59 Intake Total 1000 580 Balance 1000 580 Weight (lbs) 84.277 kg Intake: Intake, IV Amount 1000 Sodium Chloride 0.45% 1, 1000 000 ml @ 125 mls/hr IV . Q8H [facility] Rx#:[id number] Oral 580 Other: # Voids 3 # Bowel Movements 0 Active Medications: Current Medications Aspirin (Aspirin Chewable) 81 mg PO DAILY [facility] Stop: 03/18/17 08:59 Last Admin: 01/19/17 09:29 Dose: 81 mg Atorvastatin Calcium (Lipitor) 10 mg PO HS [facility] PRN Reason: Protocol Stop: 03/18/17 20:59 Last Admin: 01/18/17 21:05 Dose: 10 mg Citalopram Hydrobromide (Celexa) 20 mg PO DAILY [facility] PRN Reason: Protocol Stop: 03/18/17 08:59 Last Admin: 01/19/17 09:29 Dose: 20 mg Donepezil HCl (Aricept) 5 mg PO DAILY [facility] Stop: 03/19/17 08:59 Last Admin: 01/19/17 09:28 Dose: 5 mg Ferrous Sulfate (Iron) 325 mg PO BID [facility] Stop: 03/18/17 08:59 Last Admin: 01/19/17 09:28 Dose: 325 mg Finasteride (Proscar) 5 mg PO DAILY [facility] PRN Reason: Protocol Stop: 03/18/17 08:59 Last Admin: 01/19/17 09:29 Dose: 5 mg Folic Acid (Folate) 1 mg PO DAILY [facility] Stop: 03/18/17 08:59 Last Admin: 01/19/17 09:28 Dose: 1 mg Heparin Sodium (Porcine) (Heparin Sodium) 0 units HD PRN PRN PRN Reason: for hemodialysis Stop: 01/25/17 17:36 Heparin Sodium (Porcine) (Heparin) 5,000 units HD PRN PRN PRN Reason: DIALYSIS PORTS Stop: 03/20/17 00:00 Albumin Human (Albuminar 25%) 25 gm in 100 mls @ 50 mls/hr IV PRN PRN PRN Reason: BP Support During HD Sodium Chloride (Nacl 0.45%) 1,000 mls @ 40 mls/hr IV .Q24H [facility] Stop: 03/17/17 22:17 Last Admin: 01/18/17 17:04 Dose: 40 mls/hr Levetiracetam (Keppra) 500 mg PO BID [facility] Stop: 03/18/17 16:59 Last Admin: 01/19/17 09:29 Dose: 500 mg Lorazepam (Ativan) 1 mg IVP Q6HR PRN; Protocol PRN Reason: Seizure Stop: 03/18/17 09:57 Metoprolol Tartrate (Lopressor) 25 mg PO DAILY [facility] Stop: 03/18/17 08:59 Last Admin: 01/19/17 09:29 Dose: 25 mg Mirtazapine (Remeron) 15 mg PO HS [facility] PRN Reason: Protocol Stop: 03/18/17 20:59 Last Admin: 01/18/17 21:06 Dose: 15 mg Miscellaneous (Clinical Monitoring) 1 ea [facility] DAILY PRN PRN Reason: RENAL Stop: 03/20/17 10:37 Olanzapine (Zyprexa) 2.5 mg PO HS [facility] PRN Reason: Protocol Stop: 03/18/17 20:59 Last Admin: 01/18/17 21:06 Dose: 2.5 mg Pantoprazole Sodium (Protonix) 40 mg PO DAILY [facility] Stop: 03/18/17 09:29 Last Admin: 01/19/17 09:29 Dose: 40 mg Tamsulosin HCl (Flomax) 0.4 mg PO BID [facility] Stop: 03/18/17 09:29 Last Admin: 01/19/17 09:29 Dose: 0.4 mg General: Alert, No acute distress HEENT: Atraumatic, PERRLA, EOMI, Mucous membr. moist/pink Neck: Supple, Thyromegaly, +2 carotid pulse wo bruit Cardiovascular: Regular rate, Normal S1, Normal S2 Lungs: Clear to auscultation Abdomen: Bowel sounds, Soft Extremities: no Edema Neurological: Sensation intact Skin: no Rash Psych/Mental Status: Mood NL Assessment/Plan - Problem List Patient Problems: All Active Problems right sided partial obastruction (Acute) - Plan Plan: cpm
[2017-01-19] MEDS: Sodium Chloride 0.45% 1,000 ML IV SCH (17:41)
--- NOTE | 2017-01-19 18:12 | Progress Notes ---
DATE: 01/18/2017 NEUROLOGY PROGRESS NOTE SUBJECTIVE/REVIEW OF SYSTEMS: The patient in bed. Initially, she will awaken. Limited speech. Right-sided weakness as before, and increased tone with rigidity, and spasticity. OBJECTIVE: VITAL SIGNS: Temperature 97.9, Blood pressure 140/80, pulse 76. NECK: Supple. No bruits. HEART: Heart sounds S1 and S2. LUNGS: Clear. NEUROLOGIC: The patient has weakness. Difficulty with speech. INVESTIGATIONS: A CT scan of the head is limited because of movement artifact, but no acute stroke, and no acute bleed. LABORATORY DATA: WBC 6.6, hemoglobin 10.1, platelets normal. Sed rate is 62. Creatinine elevated at 7.0. Ammonia 35, CRP 1.0. ASSESSMENT: 1. Encephalopathy. 2. Stroke. 3. Renal failure. 4. Hypertension. 5. Anemia. 6. Hyperlipidemia. PLAN: Continue the present treatment. JOB# [id number]
--- NOTE | 2017-01-19 18:52 | Consultation ---
DATE OF CONSULTATION: 01/19/2017 VASCULAR CONSULTATION REFERRING PHYSICIAN: Dr. Frankel/Dr. Wiggins. REASON FOR CONSULTATION: Renal failure. Thank you for referring this patient to me. HISTORY OF PRESENT ILLNESS: This is a 76-year-old male with chronic kidney disease, admitted because of worsening kidney function and electrolyte imbalance. He has essential hypertension, CVA, BPH, dementia, dyslipidemia, and gastritis. LABORATORY STUDIES: On this day showed the WBC is normal, hemoglobin 10.4, and platelets 225,000. BUN is 33 with creatinine of 6.1. PHYSICAL EXAMINATION: The patient is awake, but unable to give useful information, although seems to be reasonably oriented. PLAN: Informed consent had been signed by Bessie Stephens, who was power of clock repairer. We will insert Edmundo catheter in left subclavian location under ultrasound guidance. JOB# [id number]
--- NOTE | 2017-01-19 20:03 | Operative Report ---
DATE OF SURGERY: 01/19/2017 PREOPERATIVE DIAGNOSES: 1. Acute renal failure on chronic kidney disease. 2. Hypertension. 3. Depression. 4. Status post CVA. POSTOPERATIVE DIAGNOSES: 1. Acute renal failure on chronic kidney disease. 2. Hypertension. 3. Depression. 4. Status post CVA. OPERATION DONE: Placement of Edmundo catheter, left subclavian vein under ultrasound guidance. DESCRIPTION OF PROCEDURE: The left chest was prepped with ChloraPrep and draped in appropriate manner. Lidocaine 1% was used to infiltrate the area identified on ultrasound. An incision was made and a size 18 needle was used to locate the vein. The guidewire was inserted, the dilator and then the triple lumen catheter. Portable chest x-ray will be ordered. JOB# [id number]
--- NOTE | 2017-01-20 00:20 | Consultation ---
DATE OF CONSULTATION: 01/19/2017 IDENTIFYING INFORMATION: The patient is 76-year-old male. HISTORY OF PRESENT ILLNESS: I was asked to see this patient who was admitted because of kidney failure. He has elevated creatinine with generalized weakness. The patient is well known to me. I have seen him before covering for Dr. Drew a few weeks ago. He was able to give information. Today, he was somewhat confused, unable to participate in meaningful conversation. I met him with his girlfriend. Apparently, he has a history of depression. Currently, he has acute renal failure with weakness, dementia with a history of severe depression with history of ECT. PAST PSYCHIATRIC HISTORY: Depression, ECT. MEDICATIONS: He is currently on Celexa, Remeron and Zyprexa. MEDICAL HISTORY: Deferred to the medical doctor. The patient himself was a poor historian. ALLERGIES: He has no known drug allergy. FAMILY AND SOCIAL HISTORY: The patient apparently has nobody here. According to his girlfriend, he has two sisters, but nobody wants to care for him. Lives in a halfway. He used to have a girlfriend, now she moved to [place]. MENTAL STATUS EXAMINATION: The patient is alert, but confused, unable to participate in a meaningful conversation. He has acute renal failure. He is unable to recognize me. His long and short term memory is poor. He would not answer any question about suicide or homicide. He is not a reliable historian. He is too weak. His insight and judgment is impaired. IMPRESSION: AXIS I: History of bipolar disorder, depression, dementia. MEDICAL DIAGNOSES: Deferred to the medical doctor PLAN: Recommend continue medication and the patient can be transferred to [facility] when medically cleared. If his condition is fair, medication needs to be adjusted. Thank you very much for allowing me to participate in the care. JOB# [id number]
[2017-01-20] MEDS: Atorvastatin Calcium 10 MG TAB PO SCH (00:23)
[2017-01-20 02:20] LABS: FOLIC ACID >20.0 ng/mL (>3.0)
[2017-01-20 06:08] LABS: ALDOLASE 4.3 U/L (3.3-10.3); T4 FREE 1.56 ng/dL (0.82-1.77)
[2017-01-20 06:11] LABS: % EOSINOPHILS 5.5 % (0.0-5.0); % LYMPHOCYTES 14.3 % (20.0-50.0); % MONOCYTES 11.7 % (2.0-10.0); % NEUTROPHILS 68.5 % (40.0-80.0); HEMATOCRIT 33.7 % (41.0-60); HEMOGLOBIN 11.2 gm/dL (12-16); MEAN CELL VOLUME 92.1 fl (80-99); MEAN CORPUSCULAR HEMOGLOBIN 30.7 pg (27.0-31.0); MEAN CORPUSCULAR HGB CONC 33.4 pg (28.0-36.0); MEAN PLATELET VOLUME 6.7 fl; NEUTROPHILE ABSOLUTE 4.1 Th/cmm (1.8-8.0); PLATELET COUNT 225 Th/cmm (150-400); RED BLOOD COUNT 3.66 Mil/cmm (3.80-5.80); RED CELL DISTRIBUTION WIDTH 12.2 % (11.5-20.0); WHITE BLOOD COUNT 5.9 Th/cmm (4.8-10.8)
[2017-01-20 06:26] LABS: ANION GAP 11.4 (7.0-16.0); BUN - UREA NITROGEN 21 mg/dL (7-25); BUN/CREATININE RATIO 4.5; CALCIUM SERUM 9.3 mg/dL (8.6-10.3); CHLORIDE 105 mEq/L (98-107); POTASSIUM SERUM 3.4 mEq/L (3.5-5.1); SODIUM SERUM 138 mEq/L (136-145)
[2017-01-20 06:35] LABS: CREATININE - SERUM 4.7 mg/dL (0.7-1.3); GLUCOSE 103 mg/dL (70-105)
--- NOTE | 2017-01-20 08:18 | Diagnostic Imaging Report ---
CHEST X-RAY: AP view INDICATION: Dialysis catheter placement COMPARISON: Chest x-ray 01/16/2017 FINDINGS: Left dialysis catheter is in place with tip in SVC. Small left effusion seen with left basal atelectasis. No focal consolidation or evidence of CHF. Mild cardiomegaly is noted. No evidence of pneumothorax. IMPRESSION: Interval left-sided dialysis catheter placement with tip in the SVC. No evidence of pneumothorax. Small left effusion and left basal atelectasis.
[2017-01-20] MEDS: Pantoprazole 40 mg EC Tab PO SCH (08:21)
[2017-01-20] MEDS: Ferrous Sulfate 325 MG TAB PO SCH ×2 (08:21→16:10)
[2017-01-20] MEDS: Aspirin 81mg Chewable Tab PO SCH (08:22)
[2017-01-20 09:22] LABS: HEP B CORE IGM Negative (Negative)
--- NOTE | 2017-01-20 09:52 | Internal Medicine Prog Note ---
Internal Medicine Subjective - Subjective Service Date: 01/20/17 Patient seen and examined:: with staff Patient is:: awake Per staff patient has:: no adverse event Internal Medicine Objective - Results Result Diagrams: 01/20/17 05:28 01/20/17 05:28 Recent Labs: Laboratory Last Values WBC 5.9 Th/cmm (4.8-10.8) 01/20/17 05:28 RBC 3.66 Mil/cmm (3.80-5.80) L 01/20/17 05:28 Hgb 11.2 gm/dL (12-16) L 01/20/17 05:28 Hct 33.7 % (41.0-60) L 01/20/17 05:28 MCV 92.1 fl (80-99) 01/20/17 05:28 MCH 30.7 pg (27.0-31.0) 01/20/17 05:28 MCHC Differential 33.4 pg (28.0-36.0) 01/20/17 05:28 RDW 12.2 % (11.5-20.0) 01/20/17 05:28 Plt Count 225 Th/cmm (150-400) 01/20/17 05:28 MPV 6.7 fl 01/20/17 05:28 Neutrophils % 68.5 % (40.0-80.0) 01/20/17 05:28 Lymphocytes % 14.3 % (20.0-50.0) L 01/20/17 05:28 Monocytes % 11.7 % (2.0-10.0) H 01/20/17 05:28 Eosinophils % 5.5 % (0.0-5.0) H 01/20/17 05:28 Basophils % 0.0 % (0.0-2.0) 01/20/17 05:28 ESR 62 mm/hr (0-20) H 01/18/17 05:58 Eos Smear Source URINE 01/18/17 05:11 Eos Smear Total Cells NONE SEEN (NONE SEEN) 01/18/17 05:11 Sodium 138 mEq/L (136-145) 01/20/17 05:28 Potassium 3.4 mEq/L (3.5-5.1) L 01/20/17 05:28 Chloride 105 mEq/L (98-107) 01/20/17 05:28 Carbon Dioxide 25.0 mEq/L (21.0-31.0) 01/20/17 05:28 Anion Gap 11.4 (7.0-16.0) 01/20/17 05:28 BUN 21 mg/dL (7-25) 01/20/17 05:28 Creatinine 4.7 mg/dL (0.7-1.3) H* 01/20/17 05:28 Est GFR ( Amer) TNP 01/20/17 05:28 Est GFR (Non-Af Amer) TNP 01/20/17 05:28 BUN/Creatinine Ratio 4.5 01/20/17 05:28 Glucose 103 mg/dL (70-105) D 01/20/17 05:28 POC Glucose 116 MG/DL (70-105) H 01/17/17 09:17 Hemoglobin A1c % 4.9 % (4.0-6.0) 01/16/17 20:44 Calcium 9.3 mg/dL (8.6-10.3) 01/20/17 05:28 Phosphorus 4.2 mg/dL (2.5-5.0) 01/18/17 05:58 Magnesium 2.1 mg/dL (1.9-2.7) 01/18/17 05:58 Total Bilirubin 0.4 mg/dL (0.3-1.0) 01/16/17 20:44 AST 13 U/L (13-39) 01/16/17 20:44 ALT 9 U/L (7-52) 01/16/17 20:44 Alkaline Phosphatase 100 U/L (34-104) 01/16/17 20:44 Ammonia 35 umol/L (16-53) 01/17/17 19:59 C-Reactive Protein 1.0 mg/dL (0.0-0.9) H 01/18/17 05:58 Total Protein 7.8 gm/dL (6.0-8.3) 01/16/17 20:44 Albumin 3.5 gm/dL (4.2-5.5) L 01/16/17 20:44 Globulin 4.3 gm/dL 01/16/17 20:44 Albumin/Globulin Ratio 0.8 (1.0-1.8) L 01/16/17 20:44 Triglycerides 158 mg/dL (<150) H 01/17/17 05:59 Cholesterol 120 mg/dL (<200) 01/17/17 05:59 LDL Cholesterol Direct 59 mg/dL (75-193) L 01/17/17 05:59 HDL Cholesterol 33 mg/dL (23-92) 01/17/17 05:59 Aldolase 4.3 U/L (3.3-10.3) 01/18/17 05:58 Vitamin B12 881 pg/mL (211-946) 01/18/17 05:58 Folic Acid >20.0 ng/mL (>3.0) 01/18/17 05:58 Free T4 1.56 ng/dL (0.82-1.77) 01/18/17 05:58 TSH 1.62 uIU/ml (0.34-5.60) 01/17/17 05:59 Urine Source RANDOM 01/17/17 14:25 Urine Color YELLOW 01/17/17 14:25 Urine Clarity HAZY (CLEAR) 01/17/17 14:25 Urine pH 6.5 (4.6 - 8.0) 01/17/17 14:25 Ur Specific [place] 1.015 (1.005-1.030) 01/17/17 14:25 Urine Protein 100 mg/dL (NEGATIVE) H 01/17/17 14:25 Urine Glucose (UA) NEGATIVE mg/dL (NEGATIVE) 01/17/17 14:25 Urine Ketones 15 mg/dL (NEGATIVE) H 01/17/17 14:25 Urine Blood LARGE (NEGATIVE) H 01/17/17 14:25 Urine Nitrate NEGATIVE (NEGATIVE) 01/17/17 14:25 Urine Bilirubin NEGATIVE (NEGATIVE) 01/17/17 14:25 Urine Urobilinogen 0.2 E.U./dL (0.2 - 1.0) 01/17/17 14:25 Ur Leukocyte Esterase MODERATE (NEGATIVE) H 01/17/17 14:25 Urine RBC 50-100 /hpf (0-5) H 01/17/17 14:25 Urine WBC 6-10 /hpf (0-5) H 01/17/17 14:25 Ur Epithelial Cells FEW /lpf (FEW) 01/17/17 14:25 Urine Bacteria FEW /hpf (NONE SEEN) 01/17/17 14:25 Urine Creatinine 82.0 mg/dl (39.0-259.0) 01/18/17 05:11 Urine Microalbumin 176.1 ug/mL (Not Estab.) 01/17/17 14:25 Hepatitis A IgM Ab Negative (Negative) 01/19/17 07:00 Hep Bs Antigen Negative (Negative) 01/19/17 07:00 Hep B Core IgM Ab Negative (Negative) 01/19/17 07:00 Hepatitis C Antibody <0.1 s/co ratio (0.0-0.9) 01/19/17 07:00 - Physical Exam Vitals and I&O: Vital Signs Temp 97.0 F 01/20/17 08:00 Pulse 64 01/20/17 08:21 Resp 18 01/20/17 08:00 BP 175/100 01/20/17 08:21 Pulse Ox 97 01/20/17 08:00 Intake & Output 01/19/17 01/20/17 01/20/17 18:59 06:59 18:59 Intake Total 984.667 500 Balance 984.667 500 Weight (lbs) 185 lb Intake: Intake, IV Amount 984.667 Sodium Chloride 0.45% 1, 984.667 000 ml @ 40 mls/hr IV . Q[facility]H [facility] Rx#:[id number] Oral 500 Other: # Voids 3 # Bowel Movements 1 Active Medications: Current Medications Aspirin (Aspirin Chewable) 81 mg PO DAILY [facility] Stop: 03/18/17 08:59 Last Admin: 01/20/17 08:22 Dose: 81 mg Atorvastatin Calcium (Lipitor) 10 mg PO HS [facility] PRN Reason: Protocol Stop: 03/18/17 20:59 Last Admin: 01/20/17 00:23 Dose: 10 mg Citalopram Hydrobromide (Celexa) 20 mg PO DAILY [facility] PRN Reason: Protocol Stop: 03/18/17 08:59 Last Admin: 01/20/17 08:21 Dose: 20 mg Donepezil HCl (Aricept) 5 mg PO DAILY [facility] Stop: 03/19/17 08:59 Last Admin: 01/20/17 08:21 Dose: 5 mg Ferrous Sulfate (Iron) 325 mg PO BID [facility] Stop: 03/18/17 08:59 Last Admin: 01/20/17 08:21 Dose: 325 mg Finasteride (Proscar) 5 mg PO DAILY [facility] PRN Reason: Protocol Stop: 03/18/17 08:59 Last Admin: 01/20/17 08:21 Dose: 5 mg Folic Acid (Folate) 1 mg PO DAILY [facility] Stop: 03/18/17 08:59 Last Admin: 01/20/17 08:21 Dose: 1 mg Heparin Sodium (Porcine) (Heparin Sodium) 0 units HD PRN PRN PRN Reason: for hemodialysis Stop: 01/25/17 17:36 Heparin Sodium (Porcine) (Heparin) 5,000 units HD PRN PRN PRN Reason: DIALYSIS PORTS Stop: 03/20/17 00:00 Albumin Human (Albuminar 25%) 25 gm in 100 mls @ 50 mls/hr IV PRN PRN PRN Reason: BP Support During HD Sodium Chloride (Nacl 0.45%) 1,000 mls @ 40 mls/hr IV .Q24H [facility] Stop: 03/17/17 22:17 Last Admin: 01/19/17 17:41 Dose: 40 mls/hr Levetiracetam (Keppra) 500 mg PO BID [facility] Stop: 03/18/17 16:59 Last Admin: 01/20/17 08:21 Dose: 500 mg Lorazepam (Ativan) 1 mg IVP Q6HR PRN; Protocol PRN Reason: Seizure Stop: 03/18/17 09:57 Metoprolol Tartrate (Lopressor) 25 mg PO DAILY [facility] Stop: 03/18/17 08:59 Last Admin: 01/20/17 08:21 Dose: 25 mg Mirtazapine (Remeron) 15 mg PO HS [facility] PRN Reason: Protocol Stop: 03/18/17 20:59 Last Admin: 01/20/17 00:23 Dose: 15 mg Miscellaneous (Clinical Monitoring) 1 ea MC DAILY PRN PRN Reason: RENAL Stop: 03/20/17 10:37 Olanzapine (Zyprexa) 2.5 mg PO HS [facility] PRN Reason: Protocol Stop: 03/18/17 20:59 Last Admin: 01/20/17 00:23 Dose: 2.5 mg Pantoprazole Sodium (Protonix) 40 mg PO DAILY [facility] Stop: 03/18/17 09:29 Last Admin: 01/20/17 08:21 Dose: 40 mg Tamsulosin HCl (Flomax) 0.4 mg PO BID [facility]EST Stop: 03/18/17 09:29 Last Admin: 01/20/17 08:21 Dose: 0.4 mg General: alert HEENT: NC/AT, PERRLA Neck: Supple Lungs: CTAB Cardiovascular: RRR, Normal S1, Normal S2, without murmur Abdomen: soft, non-tender, non-distended Neurological: no change Internal Medicine Assmt/Plan - Assessment Assessment: right sided partial obastruction (Acute) - Plan Plan: dc planning in progress Nutritional Asmnt/Malnutr-PDOC - Dietary Evaluation Malnutrition Findings (Please click <Entered> for more info): Nutritional Asmnt/Malnutrition Start: 01/19/17 16: 15 Text: Status: Complete Freq: Document 01/19/17 16:19 LCHENG (Rec: 01/19/17 16:36 LCHENG [id number]) Nutritional Asmnt/Malnutrition Patient General Information Nutritional Screening High Risk Diagnosis acute renal failure, general weakness Pertinent Medical Hx/Surgical Hx BPH, HTN, GERD, hyperlipidemia , dementia, iron deficiency Subjective Information Pt seen lying in bed, awake, appeared weak during lunch time. Spoke with PARTS COORDINATOR, pt has difficulty on chewing regular textured food. Pt has no teeth noted. Observed pt eating canned pears, pt tolerated well. Per MD note, pt will need dialysis. Pt appeared no fat/ muscle wasting. Current Diet Order/ Nutrition Support Renal Pertinent Medications Iron, Folic acid, remeron, nacl IV Pertinent Labs 01/19 Cl 108H, BUN 33H, Cr 6. 1H 01/16 A1c 4.9, ALb 3.5 POC 116H Nutritional Hx/Data Height 5 ft 9 in Height (Calculated Centimeters) 175.3 Current Weight (lbs) 185 lb 12.8 oz Weight (Calculated Kilograms) 84.3 Weight (Calculated Grams) 09558.5 [place] Body Weight 160 % [place] Body Weight 116 Body Mass Index (BMI) 27.4 Weight Status Overweight GI Symptoms GI Symptoms None Skin Integrity/Comment: scar on right lower leg Current %PO Fair (50-74%) Estimated Nutritional Goals BEE in Kcals: Using Current wt Calories/Kcals/Kg 25-30 Kcals Calculated 6139-2650 Protein: Using Current wt Protein g/k.8 monitor renal labs Protein Calculated 67.6 Fluid: ml per MD Nutritional Problem 2. Problem Problem chewing difficulty Etiology no teeth Signs/Symptoms: pt need for mech soft chopped diet 1. Problem Problem altered nutrition related nutrition labs Etiology acute renal failure Signs/Symptoms: BUN 33H, Cr 6.1H Malnutrition Alert Protein-Calorie Malnutrition N/A Is there a minimum of two criteria No selected? Query Text:Check all the applicable criteria. A minimum of two criteria are recommended for diagnosis of either severe or non-severe malnutrition. Intervention/Recommendation Comments 1. Recommend mech soft chopped texture diet d/t pt has no teeth. Notified ANANT Harry and updated in diet order 2. if pt started dialysis, will consider to increase protein needs 3. monitor PO intake, wt weekly, labs and skin integrity 4. F/U as moderate risk in 3-5 days, 01/22-01/24, PO check Expected Outcomes/Goals Expected Outcomes/Goals 1. PO intake to meet at least 75% of nutritional needs with tolerance mech soft chopped texture 2. wt stability, skin to remain intact, labs to improve
--- NOTE | 2017-01-20 13:21 | Diagnostic Imaging Report ---
MRI Brain without intravenous Contrast Indication: CVA Comparison: Head CT performed on 01/14/2017 Technique: Multiplanar T1, T2, FLAIR, GRE and diffusion weighted images of the brain were obtained without intravenous contrast.. Findings: Images of the brain obtained without contrast demonstrate no evidence of restricted diffusion. A few punctate areas of hemosiderin deposition are seen throughout the basal ganglia subcortical regions. Extensive white matter disease is seen with small old periventricular infarcts. Old left basal ganglia infarct is also noted. The ventricles and basal cisterns are seen. No mass effect or midline shift. The vascular flow voids are preserved. The bilateral cerebellopontine angles are patent. There is mucosal thickening in the paranasal sinuses with small mucous retention cyst was scallops of the bilateral lateral maxillary sinuses. IMPRESSION: No acute intracranial abnormality. Diffuse supratentorial white matter disease which is nonspecific and may be due to chronic microvessel ischemia. Old small periventricular infarcts are also noted. Old lacunar infarct of the left basal ganglia is also noted. Few scattered areas of hemosiderin deposition throughout the brain. Findings are nonspecific however, etiology such as amyloid angiopathy cannot be completely excluded. Please correlate with clinical findings. Mild sinus disease.
--- NOTE | 2017-01-20 13:22 | Diagnostic Imaging Report ---
MRA brain without IV contrast History: CVA Comparison: MRI brain and MRA neck the same day Technique/procedure: [id number] MRA sequences of the intracranial arterial vasculature was performed without IV contrast. Multiplanar reconstructions were made. Findings: A left dominant vertebral artery is noted. An aplastic versus hypoplastic left T1 segment is noted. There is no evidence of significant focal stenosis. No evidence of an aneurysm or dissection. The bilateral anterior, middle, and and posterior cerebral arteries are patent. IMPRESSION: No evidence of hemodynamically focal vessel stenosis.
--- NOTE | 2017-01-20 13:23 | Diagnostic Imaging Report ---
MRA neck without IV contrast History: CVA Comparison: MRI brain and and MRA brain the same day. Technique/procedure: [id number] MRA sequences of the intracranial arterial vasculature was performed without IV contrast. Reconstructions were made. Findings: Exam is limited due to motion artifacts. A left dominant vertebral artery is noted. There is area of signal void seen along the distal aspect of the left vertebral artery as it exits the intravertebral foramen. This is likely related to technical factors and vessel tortuosity. Otherwise no significant focal atherosclerotic vascular disease identified. No evidence of any aneurysm or gross dissection. IMPRESSION: Limited exam due to motion. Areas of signal void seen along the distal left vertebral artery as it exits the intervertebral foramen. This is likely related to technical factors and vessel tortuosity. Otherwise no evidence of hemodynamically significant stenosis. If necessary CT angiography of the neck may be obtained for confirmation.
--- NOTE | 2017-01-20 14:40 | General Progress Note ---
Subjective - Review of Systems Service Date: 01/20/17 Subjective: alert, verbal, coherent, comfortable Objective - Results Result Diagrams: 01/20/17 05:28 01/20/17 05:28 Recent Labs: Laboratory Last Values WBC 5.9 Th/cmm (4.8-10.8) 01/20/17 05:28 RBC 3.66 Mil/cmm (3.80-5.80) L 01/20/17 05:28 Hgb 11.2 gm/dL (12-16) L 01/20/17 05:28 Hct 33.7 % (41.0-60) L 01/20/17 05:28 MCV 92.1 fl (80-99) 01/20/17 05:28 MCH 30.7 pg (27.0-31.0) 01/20/17 05:28 MCHC Differential 33.4 pg (28.0-36.0) 01/20/17 05:28 RDW 12.2 % (11.5-20.0) 01/20/17 05:28 Plt Count 225 Th/cmm (150-400) 01/20/17 05:28 MPV 6.7 fl 01/20/17 05:28 Neutrophils % 68.5 % (40.0-80.0) 01/20/17 05:28 Lymphocytes % 14.3 % (20.0-50.0) L 01/20/17 05:28 Monocytes % 11.7 % (2.0-10.0) H 01/20/17 05:28 Eosinophils % 5.5 % (0.0-5.0) H 01/20/17 05:28 Basophils % 0.0 % (0.0-2.0) 01/20/17 05:28 ESR 62 mm/hr (0-20) H 01/18/17 05:58 Eos Smear Source URINE 01/18/17 05:11 Eos Smear Total Cells NONE SEEN (NONE SEEN) 01/18/17 05:11 Sodium 138 mEq/L (136-145) 01/20/17 05:28 Potassium 3.4 mEq/L (3.5-5.1) L 01/20/17 05:28 Chloride 105 mEq/L (98-107) 01/20/17 05:28 Carbon Dioxide 25.0 mEq/L (21.0-31.0) 01/20/17 05:28 Anion Gap 11.4 (7.0-16.0) 01/20/17 05:28 BUN 21 mg/dL (7-25) 01/20/17 05:28 Creatinine 4.7 mg/dL (0.7-1.3) H* 01/20/17 05:28 Est GFR ( Amer) TNP 01/20/17 05:28 Est GFR (Non-Af Amer) TNP 01/20/17 05:28 BUN/Creatinine Ratio 4.5 01/20/17 05:28 Glucose 103 mg/dL (70-105) D 01/20/17 05:28 POC Glucose 116 MG/DL (70-105) H 01/17/17 09:17 Hemoglobin A1c % 4.9 % (4.0-6.0) 01/16/17 20:44 Calcium 9.3 mg/dL (8.6-10.3) 01/20/17 05:28 Phosphorus 4.2 mg/dL (2.5-5.0) 01/18/17 05:58 Magnesium 2.1 mg/dL (1.9-2.7) 01/18/17 05:58 Total Bilirubin 0.4 mg/dL (0.3-1.0) 01/16/17 20:44 AST 13 U/L (13-39) 01/16/17 20:44 ALT 9 U/L (7-52) 01/16/17 20:44 Alkaline Phosphatase 100 U/L (34-104) 01/16/17 20:44 Ammonia 35 umol/L (16-53) 01/17/17 19:59 C-Reactive Protein 1.0 mg/dL (0.0-0.9) H 01/18/17 05:58 Total Protein 7.8 gm/dL (6.0-8.3) 01/16/17 20:44 Albumin 3.5 gm/dL (4.2-5.5) L 01/16/17 20:44 Globulin 4.3 gm/dL 01/16/17 20:44 Albumin/Globulin Ratio 0.8 (1.0-1.8) L 01/16/17 20:44 Triglycerides 158 mg/dL (<150) H 01/17/17 05:59 Cholesterol 120 mg/dL (<200) 01/17/17 05:59 LDL Cholesterol Direct 59 mg/dL (75-193) L 01/17/17 05:59 HDL Cholesterol 33 mg/dL (23-92) 01/17/17 05:59 Aldolase 4.3 U/L (3.3-10.3) 01/18/17 05:58 Vitamin B12 881 pg/mL (211-946) 01/18/17 05:58 Folic Acid >20.0 ng/mL (>3.0) 01/18/17 05:58 Free T4 1.56 ng/dL (0.82-1.77) 01/18/17 05:58 TSH 1.62 uIU/ml (0.34-5.60) 01/17/17 05:59 Urine Source RANDOM 01/17/17 14:25 Urine Color YELLOW 01/17/17 14:25 Urine Clarity HAZY (CLEAR) 01/17/17 14:25 Urine pH 6.5 (4.6 - 8.0) 01/17/17 14:25 Ur Specific [place] 1.015 (1.005-1.030) 01/17/17 14:25 Urine Protein 100 mg/dL (NEGATIVE) H 01/17/17 14:25 Urine Glucose (UA) NEGATIVE mg/dL (NEGATIVE) 01/17/17 14:25 Urine Ketones 15 mg/dL (NEGATIVE) H 01/17/17 14:25 Urine Blood LARGE (NEGATIVE) H 01/17/17 14:25 Urine Nitrate NEGATIVE (NEGATIVE) 01/17/17 14:25 Urine Bilirubin NEGATIVE (NEGATIVE) 01/17/17 14:25 Urine Urobilinogen 0.2 E.U./dL (0.2 - 1.0) 01/17/17 14:25 Ur Leukocyte Esterase MODERATE (NEGATIVE) H 01/17/17 14:25 Urine RBC 50-100 /hpf (0-5) H 01/17/17 14:25 Urine WBC 6-10 /hpf (0-5) H 01/17/17 14:25 Ur Epithelial Cells FEW /lpf (FEW) 01/17/17 14:25 Urine Bacteria FEW /hpf (NONE SEEN) 01/17/17 14:25 Urine Creatinine 82.0 mg/dl (39.0-259.0) 01/18/17 05:11 Urine Microalbumin 176.1 ug/mL (Not Estab.) 01/17/17 14:25 Microalb/Creat Ratio 170.6 01/17/17 14:25 Hepatitis A IgM Ab Negative (Negative) 01/19/17 07:00 Hep Bs Antigen Negative (Negative) 01/19/17 07:00 Hep B Core IgM Ab Negative (Negative) 01/19/17 07:00 Hepatitis C Antibody <0.1 s/co ratio (0.0-0.9) 01/19/17 07:00 - Physical Exam Vitals and I&O: Vital Signs Temp 97.0 F 01/20/17 08:00 Pulse 64 01/20/17 08:21 Resp 18 01/20/17 08:25 BP 175/100 01/20/17 08:21 Pulse Ox 97 01/20/17 08:00 Intake & Output 01/19/17 01/20/17 01/20/17 18:59 06:59 18:59 Intake Total 984.667 500 Balance 984.667 500 Weight (lbs) 83.915 kg Intake: Intake, IV Amount 984.667 Sodium Chloride 0.45% 1, 984.667 000 ml @ 40 mls/hr IV . Q24H [facility] Rx#:[id number] Oral 500 Other: # Voids 3 # Bowel Movements 1 Active Medications: Current Medications Aspirin (Aspirin Chewable) 81 mg PO DAILY [facility] Stop: 03/18/17 08:59 Last Admin: 01/20/17 08:22 Dose: 81 mg Atorvastatin Calcium (Lipitor) 10 mg PO HS [facility] PRN Reason: Protocol Stop: 03/18/17 20:59 Last Admin: 01/20/17 00:23 Dose: 10 mg Citalopram Hydrobromide (Celexa) 20 mg PO DAILY [facility] PRN Reason: Protocol Stop: 03/18/17 08:59 Last Admin: 01/20/17 08:21 Dose: 20 mg Donepezil HCl (Aricept) 5 mg PO DAILY [facility] Stop: 03/19/17 08:59 Last Admin: 01/20/17 08:21 Dose: 5 mg Ferrous Sulfate (Iron) 325 mg PO BID [facility] Stop: 03/18/17 08:59 Last Admin: 01/20/17 08:21 Dose: 325 mg Finasteride (Proscar) 5 mg PO DAILY [facility] PRN Reason: Protocol Stop: 03/18/17 08:59 Last Admin: 01/20/17 08:21 Dose: 5 mg Folic Acid (Folate) 1 mg PO DAILY [facility] Stop: 03/18/17 08:59 Last Admin: 01/20/17 08:21 Dose: 1 mg Heparin Sodium (Porcine) (Heparin Sodium) 0 units HD PRN PRN PRN Reason: for hemodialysis Stop: 01/25/17 17:36 Heparin Sodium (Porcine) (Heparin) 5,000 units HD PRN PRN PRN Reason: DIALYSIS PORTS Stop: 03/20/17 00:00 Albumin Human (Albuminar 25%) 25 gm in 100 mls @ 50 mls/hr IV PRN PRN PRN Reason: BP Support During HD Sodium Chloride (Nacl 0.45%) 1,000 mls @ 40 mls/hr IV .Q24H [facility] Stop: 03/17/17 22:17 Last Admin: 01/19/17 17:41 Dose: 40 mls/hr Levetiracetam (Keppra) 500 mg PO BID [facility] Stop: 03/18/17 16:59 Last Admin: 01/20/17 08:21 Dose: 500 mg Lorazepam (Ativan) 1 mg IVP Q6HR PRN; Protocol PRN Reason: Seizure Stop: 03/18/17 09:57 Metoprolol Tartrate (Lopressor) 25 mg PO DAILY [facility] Stop: 03/18/17 08:59 Last Admin: 01/20/17 08:21 Dose: 25 mg Mirtazapine (Remeron) 15 mg PO HS [facility] PRN Reason: Protocol Stop: 03/18/17 20:59 Last Admin: 01/20/17 00:23 Dose: 15 mg Miscellaneous (Clinical Monitoring) 1 ea MC DAILY PRN PRN Reason: RENAL Stop: 03/20/17 10:37 Olanzapine (Zyprexa) 2.5 mg PO HS [facility] PRN Reason: Protocol Stop: 03/18/17 20:59 Last Admin: 01/20/17 00:23 Dose: 2.5 mg Pantoprazole Sodium (Protonix) 40 mg PO DAILY [facility] Stop: 03/18/17 09:29 Last Admin: 01/20/17 08:21 Dose: 40 mg Tamsulosin HCl (Flomax) 0.4 mg PO BID [facility] Stop: 03/18/17 09:29 Last Admin: 01/20/17 08:21 Dose: 0.4 mg General: Alert, No acute distress HEENT: Atraumatic, PERRLA, EOMI, Mucous membr. 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 - Plan Plan: Lab - Result Diagrams 01/18/17 05:58 01/18/17 05:58 Current Medications Aspirin (Aspirin Chewable) 81 mg PO DAILY [facility] Stop: 03/18/17 08:59 Last Admin: 01/18/17 09:24 Dose: 81 mg Atorvastatin Calcium (Lipitor) 10 mg PO HS [facility] PRN Reason: Protocol Stop: 03/18/17 20:59 Last Admin: 01/17/17 20:12 Dose: 10 mg Citalopram Hydrobromide (Celexa) 20 mg PO DAILY [facility] PRN Reason: Protocol Stop: 03/18/17 08:59 Last Admin: 01/18/17 09:24 Dose: Not Given Donepezil HCl (Aricept) 5 mg PO DAILY [facility] Stop: 03/19/17 08:59 Last Admin: 01/18/17 09:26 Dose: 5 mg Ferrous Sulfate (Iron) 325 mg PO BID [facility] Stop: 03/18/17 08:59 Last Admin: 01/18/17 09:24 Dose: 325 mg Finasteride (Proscar) 5 mg PO DAILY [facility] PRN Reason: Protocol Stop: 03/18/17 08:59 Last Admin: 01/18/17 09:25 Dose: 5 mg Folic Acid (Folate) 1 mg PO DAILY [facility] Stop: 03/18/17 08:59 Last Admin: 01/18/17 09:24 Dose: 1 mg Sodium Chloride (Nacl 0.45%) 1,000 mls @ 125 mls/hr IV .Q8H [facility] Stop: 03/17/17 22:17 Last Admin: 01/18/17 09:21 Dose: 125 mls/hr Levetiracetam (Keppra) 500 mg PO BID [facility] Stop: 03/18/17 16:59 Last Admin: 01/18/17 09:25 Dose: 500 mg Lorazepam (Ativan) 1 mg IVP Q6HR PRN; Protocol PRN Reason: Seizure Stop: 03/18/17 09:57 Metoprolol Tartrate (Lopressor) 25 mg PO DAILY [facility] Stop: 03/18/17 08:59 Last Admin: 01/18/17 09:25 Dose: 25 mg Mirtazapine (Remeron) 15 mg PO HS [facility] PRN Reason: Protocol Stop: 03/18/17 20:59 Last Admin: 01/17/17 20:12 Dose: 15 mg Olanzapine (Zyprexa) 2.5 mg PO HS [facility] PRN Reason: Protocol Stop: 03/18/17 20:59 Last Admin: 01/17/17 20:12 Dose: 2.5 mg Pantoprazole Sodium (Protonix) 40 mg PO DAILY [facility] Stop: 03/18/17 09:29 Last Admin: 01/18/17 09:25 Dose: 40 mg Tamsulosin HCl (Flomax) 0.4 mg PO BID [facility] Stop: 03/18/17 09:29 Last Admin: 01/18/17 09:24 Dose: 0.4 mg Lab - Result Diagrams 01/20/17 05:28 01/20/17 05:28 pt. dialyzed yesterday & tolerated it well renal us revealed mild to mod right hydronephrosis, B/L renal cysts, enlarged prostate discussed renal fnc w/ executive administrator, Petra Herbert, who agreed w/ dialysis if pt. agrees. Spoke extensively w/ pt. about need for dialysis & he agreed. Request Edmundo cath placement then dialysis. replace K for HD in am Nutritional Asmnt/Malnutr-PDOC - Dietary Evaluation Malnutrition Findings (Please click <Entered> for more info): Nutritional Asmnt/Malnutrition Start: 01/19/17 16: 15 Text: Status: Complete Freq: Document 01/19/17 16:19 LCDALLING (Rec: 01/19/17 16:36 [id number]) Nutritional Asmnt/Malnutrition Patient General Information Nutritional Screening High Risk Diagnosis acute renal failure, general weakness Pertinent Medical Hx/Surgical Hx BPH, HTN, GERD, hyperlipidemia , dementia, iron deficiency Subjective Information Pt seen lying in bed, awake, appeared weak during lunch time. Spoke with POLYSOMNOGRAPHIC TECHNICIAN, pt has difficulty on chewing regular textured food. Pt has no teeth noted. Observed pt eating canned pears, pt tolerated well. Per MD note, pt will need dialysis. Pt appeared no fat/ muscle wasting. Current Diet Order/ Nutrition Support Renal Pertinent Medications Iron, Folic acid, remeron, nacl IV Pertinent Labs 01/19 Cl 108H, BUN 33H, Cr 6. 1H 01/16 A1c 4.9, ALb 3.5 POC 116H Nutritional Hx/Data Height 1.75 m Height (Calculated Centimeters) 175.3 Current Weight (lbs) 84.277 kg Weight (Calculated Kilograms) 84.3 Weight (Calculated Grams) 74096.5 [place] Body Weight 160 % Baldwin Body Weight 116 Body Mass Index (BMI) 27.4 Weight Status Overweight GI Symptoms GI Symptoms None Skin Integrity/Comment: scar on right lower leg Current %PO Fair (50-74%) Estimated Nutritional Goals BEE in Kcals: Using Current wt Calories/Kcals/Kg 25-30 Kcals Calculated 7160-4995 Protein: Using Current wt Protein g/k.8 monitor renal labs Protein Calculated 67.6 Fluid: ml per MD Nutritional Problem 2. Problem Problem chewing difficulty Etiology no teeth Signs/Symptoms: pt need for mech soft chopped diet 1. Problem Problem altered nutrition related nutrition labs Etiology acute renal failure Signs/Symptoms: BUN 33H, Cr 6.1H Malnutrition Alert Protein-Calorie Malnutrition N/A Is there a minimum of two criteria No selected? Query Text:Check all the applicable criteria. A minimum of two criteria are recommended for diagnosis of either severe or non-severe malnutrition. Intervention/Recommendation Comments 1. Recommend mech soft chopped texture diet d/t pt has no teeth. Notified ANANT Harry and updated in diet order 2. if pt started dialysis, will consider to increase protein needs 3. monitor PO intake, wt weekly, labs and skin integrity 4. F/U as moderate risk in 3-5 days, 01/22-01/24, PO check Expected Outcomes/Goals Expected Outcomes/Goals 1. PO intake to meet at least 75% of nutritional needs with tolerance [facility] soft chopped texture 2. wt stability, skin to remain intact, labs to improve
[2017-01-20] MEDS ORDERED: Potassium Chloride 20 mEq ER Tab PO ONE (15:30)
--- NOTE | 2017-01-20 21:55 | Progress Notes ---
DATE: 01/20/2017 Case was discussed with staff of the patient, reviewed records. The patient continues to be unable to carry on a conversation in general, internally preoccupied. He is compliant with the medication with no side effects, no sedation, no nausea and I would recommend to continue his medication. You can always transfer to [facility] if he starts acting out. Thank you very much for allowing me to participate in the care of this most interesting gentleman. Dr. Drew will see him tomorrow. JOB# [id number]
== END 2017-01-20 22:50 | DRG 682 ==
LOC: ER 19:22 → MSI 22:32 → TELE 22:55
PROVIDERS: ADMIT Internal Medicine; ATTEND Internal Medicine
PROC: 02HV33Z Insertion of Infusion Device into Superior Vena Cava, Percutaneous Approach (ICD-10-PCS; principal; 2017-01-19)
PROC: B548ZZA Ultrasonography of Superior Vena Cava, Guidance (ICD-10-PCS; 2017-01-19)
PROC: 5A1D70Z Performance of Urinary Filtration, Intermittent, Less than 6 Hours Per Day (ICD-10-PCS; 2017-01-19)
DX: N17.9 Acute kidney failure, unspecified (principal); G93.40 Encephalopathy, unspecified; E87.2 Acidosis; K29.71 Gastritis, unspecified, with bleeding; I12.0 Hypertensive chronic kidney disease with stage 5 chronic kidney disease or end stage renal disease; N39.0 Urinary tract infection, site not specified; I69.351 Hemiplegia and hemiparesis following cerebral infarction affecting right dominant side; F01.51 Vascular dementia, unspecified severity, with behavioral disturbance; N13.8 Other obstructive and reflux uropathy; D50.0 Iron deficiency anemia secondary to blood loss (chronic); E87.5 Hyperkalemia; G20 Parkinson's disease; E78.5 Hyperlipidemia, unspecified; G40.909 Epilepsy, unspecified, not intractable, without status epilepticus; F02.80 Dementia in other diseases classified elsewhere, unspecified severity, without behavioral disturbance, psychotic disturbance, mood disturbance, and anxiety; K21.9 Gastro-esophageal reflux disease without esophagitis; D63.1 Anemia in chronic kidney disease; N18.6 End stage renal disease; N13.30 Unspecified hydronephrosis; F31.9 Bipolar disorder, unspecified; N28.1 Cyst of kidney, acquired; N40.1 Benign prostatic hyperplasia with lower urinary tract symptoms; Z99.2 Dependence on renal dialysis
CPT/HCPCS: 36415-UA; 70450-TC; 70549-TC; 71010-TC; 76770-TC; 80048-TC; 80053-TC; 80061-TC; 80074-90; 81001-TC; 81015-TC; 82043-90; 82085-90; 82140-TC; 82570-TC; 82607-90; 82746-90; 82948-90; 83036-90; 83735-TC; 84100-TC; 84425-90; 84439-90; 84443-TC; 85025-TC; 85652-TC; 86141-TC; 87086-90; 93880-TC; 96374; J0360; J1644; J2060; J7030; Z7502; Z7610; Z7610-TC

== ENCOUNTER 2017-04-29 17:21 | Inpatient (IN) | payer MEDICARE, BC ==
--- NOTE | 2017-04-29 17:49 | ED Physician Chart ---
ED Chief Complaint/HPI - Patient Information Date Seen:: 04/29/17 Time Seen:: 17:30 Chief Complaint:: Fever History of Present Illness:: onset x 2 days of fever, cough, and congestion with poor oral intake and failure to thrive; no report of trauma, H/As, S/T, neck pain, C/P, SOB, Abd. pain, A/N/V/D/C, chills, or urinary s/s Allergies:: Allergies Allergy/AdvReac Type Severity Reaction Status Date / Time No Known Allergies Allergy Verified 12/31/16 10:47 Vitals:: Vital Signs - 8 hr 04/29/17 17:34 Temp 97.8 F HR 74 RR 16 BP 128/76 O2 Sat % 98 Historian:: Patient, EMS Review:: Nurse's Note Reviewed, Old Chart Reviewed, EMS run form Reviewed ED Review of Systems - Review of Systems General/Constitutional: Fever, No chills, No weight loss, No weakness, No diaphoresis, No edema, No loss of appetite Skin: No skin lesions, No rash, No bruising Head: No headache, No light-headedness Eyes: No loss of vision, No pain, No diplopia ENT: No earache, Nasal drainage, No sore throat, No tinnitus Neck: No neck pain, No swelling, No thyromegaly, No stiffness, No mass noted Cardio Vascular: No chest pain, No palpitations, No PND, No orthopnea, No edema Pulmonary: No SOB, Cough, No sputum, No wheezing GI: No nausea, No vomiting, No diarrhea, No pain, No melena, No hematochezia, No constipation, No hematemesis G/U: No dysuria, No frequency, No hematuria, No nacturia Musculoskeletal: No bone or joint pain, No back pain, No muscle pain Endocrine: No polyuria, No polydipsia Psychiatric: No prior psych history, No depression, No anxiety, No suicidal ideation, No homicidal ideation, No auditory hallucination, No visual hallucination Hematopoietic: No bruising, No lymphadenopathy Allergic/Immuno: No urticaria, No angioedema Neurological: No syncope, No focal symptoms, No weakness, No paresthesia, No headache, No seizure, No dizziness, Confusion, No vertigo ED Past Medical History - Past Medical History Obtainable: Yes Past Medical History: HTN, Dyslipidemia, Dementia, Other (Parkinson's Disease) Family History: Diabetes Melitus, HTN Social History: Non Smoker, No Alcohol, No Drug Use, Single, Care Facility Surgical History: None Psychiatricy History: Dementia Medication: Reviewed Family Medical History - Family Member Mother History Unknown: Yes Ethnicity: Non- Living Status: ED Physical Exam - Physical Examination General/Constitutional: Awake, Well-developed, well-nourished, Alert, No distress, GCS 15, Non-toxic appearing, Ambulatory Head: Atraumatic Eyes: Lids, conjuctiva normal, PERRL, EOMI Skin: Nl inspection, No rash, No skin lesions, No ecchymosis, Well hydrated, No lymphadenopathy ENMT: External ears, nose nl, TM canals nl, Nasal exam nl, Lips, teeth, gums nl , Oropharynx nl, Tonsils nl Neck: Nontender, Full ROM w/o pain, No JVD, No nuchal rigidity, No bruit, No mass, No stridor Respiratory: Nl effort/Exclusion Other Respiratory comments:: Lungs: + Rales and Rhonchi Cardio Vascular: RRR, No murmur, gallop, rubs, NL S1 S2, Carotid/Femoral/Distal pulses equal bilaterally GI: No tenderness/rebounding/guarding, No organomegaly, No hernia, Normal BS's, Nondistended, No mass/bruits, No McBurney tenderness : No CVA tenderness Extremities: No tenderness or effusion, Full ROM, normal strength in all extremities, No edema, Normal digits & nails Neuro/Psych: Alert/oriented, DTR's symmetric, Normal sensory exam, Normal motor strength, Judgement/insight normal, Mood normal, Normal gait, No focal deficits Misc: Normal back, No paraspinal tenderness ED Labs/Radiology/EKG Results - Lab Results Comments:: Na+: 135; + Anemia - Radiology Results Comments:: + Infiltrate - EKG Interpretations EKG Time:: 18:30 Rate & Rhythm: 74; NSR Comments:: non-specific st-t changes ED Septic Shock - . Is Septic Shock (SBP<90, OR Lactate>4 mmol\L) present?: No - <6hrs of presentation: Vital Signs: Vital Signs - 8 hr 04/29/17 17:34 Temp 97.8 F HR 74 RR 16 BP 128/76 O2 Sat % 98 ED Reassessment (Disposition) - Reassessment Reassessment Condition:: Improved - Diagnosis Diagnosis:: Cough; PNA; Sepsis; Dehydration; Failure to Thrive - Aftercare/Follow up Instructions Aftercare/Follow-Up Instructions:: Counseled pt regarding lab results/diagnosis & need follow up, Counseled pt & family regarding lab results/diagnosis & need follow up - Patient Disposition Discharge/Transfer:: Acute Care w/in this hosp Accepting Physician:: Dr. Wiggins Time Called:: 1899 Time Responded:: 19:00 Admitted to:: Med/Surg Spoke to:: Dr. Wiggins Admitting Medical Physician:: Dr. Wiggins Condition at Disposition:: Stable, Improved
[2017-04-29 18:18] LABS: % BASOPHILS 1.8 % (0.0-2.0); % EOSINOPHILS 3.2 % (0.0-5.0); % LYMPHOCYTES 13.9 % (20.0-50.0); % MONOCYTES 7.9 % (2.0-10.0); % NEUTROPHILS 73.2 % (40.0-80.0); BASOPHILE ABSOLUTE 0.1 Th/cumm (0-0.2); EOSINOPHILE ABSOLUTE 0.2 Th/cmm (0.1-0.4); HEMATOCRIT 35.5 % (41.0-60); HEMOGLOBIN 11.9 gm/dL (12-16); LYMPHOCYTE ABSOLUTE 0.7 Th/cmm (1.5-3.0); MEAN CORPUSCULAR HEMOGLOBIN 30.4 pg (27.0-31.0); MEAN CORPUSCULAR HGB CONC 33.4 pg (28.0-36.0); MEAN PLATELET VOLUME 6.3 fl; MONOCYTE ABSOLUTE 0.4 Th/cmm (0.3-1.0); NEUTROPHILE ABSOLUTE 3.8 Th/cmm (1.8-8.0); PLATELET COUNT 294 Th/cmm (150-400); RED CELL DISTRIBUTION WIDTH 13.3 % (11.5-20.0); WHITE BLOOD COUNT 5.2 Th/cmm (4.8-10.8)
[2017-04-29 18:35] LABS: ALB/GLOB RATIO 0.9 (1.0-1.8); ALBUMIN 3.4 gm/dL (4.2-5.5); ALKALINE PHOSPHATASE 107 U/L (34-104); ANION GAP 9.2 (7.0-16.0); BILIRUBIN,TOTAL 0.3 mg/dL (0.3-1.0); BUN - UREA NITROGEN 16 mg/dL (7-25); CALCIUM SERUM 9.9 mg/dL (8.6-10.3); CARBON DIOXIDE 31.4 mEq/L (21.0-31.0); CHLORIDE 98 mEq/L (98-107); CREATININE KINASE 17 U/L (30-223); GLUCOSE 103 mg/dL (70-105); POTASSIUM SERUM 3.6 mEq/L (3.5-5.1); SGOT 8 U/L (13-39); SGPT/ALT 4 U/L (7-52); SODIUM SERUM 135 mEq/L (136-145); TOTAL PROTEIN,SERUM 7.4 gm/dL (6.0-8.3)
[2017-04-29 19:18] LABS: INR 1.05 (0.5-1.4); PROTHROMBIN TIME (TEST) 10.9 SECONDS (9.5-11.5)
[2017-04-29] MEDS ORDERED: Levofloxacin 500mg/100mL 500 MG/100 ML BAG IV ONE ×2 (19:36→20:54)
[2017-04-29] MEDS ORDERED: Sodium Chloride 0.9% 1,000 ML IV ONE (19:41)
[2017-04-29 23:23] VITALS: BP 110/67
[2017-04-29] MEDS ORDERED: Azithromycin 500 MG in Sodium Chloride 0.9% 250 ML IV ONE (23:30)
[2017-04-29] MEDS ORDERED: cefTRIAXone 1 GM in Sodium Chloride 0.9% 50 ML IV ONE (23:30)
--- NOTE | 2017-04-30 07:56 | Diagnostic Imaging Report ---
Exam chest frontal view. HISTORY: Pain. Findings: Frontal examination of chest reviewed compared to prior study of 01/19/2017 demonstrates right-sided subclavian catheter with tip in superior vena cava. Mediastinal structures midline the heart is prominent. There is a atelectatic change left base versus small effusion. The lung parenchyma is well aerated of the right side. Bony thorax is intact. IMPRESSION: 1. Cardiomegaly 2. Left basilar atelectasis question of small effusion. If clinically indicated follow-up examination might be helpful.
[2017-04-30] MEDS: Pantoprazole 40 mg EC Tab PO SCH (13:00)
[2017-04-30] MEDS: Aspirin 81mg Chewable Tab PO SCH (13:00)
[2017-04-30] MEDS ORDERED: ALBUMIN 25% IV PRN (18:15)
[2017-04-30] MEDS: Azithromycin 500 mg in 0.9% NS 250 mL IV SCH (21:18)
[2017-04-30] MEDS: Atorvastatin Calcium 10 MG TAB PO SCH (21:19)
[2017-04-30] MEDS: cefTRIAXone 1 GM in 0.9% NS 50 ML IV SCH (21:19)
--- NOTE | 2017-04-30 22:01 | Consultation ---
DATE OF CONSULTATION: 04/30/2017 PATIENT OF: Dr. Wiggins. Thank you very much Dr. Wiggins for this consultation. HISTORY OF PRESENT ILLNESS: This is a 77-year-old male patient unable to give any meaningful history, awake and alert, who presented with cough and fever for 2 days. PAST MEDICAL HISTORY: Dementia, Parkinson disease, renal failure on dialysis. SOCIAL HISTORY: Denies smoking or drinking. REVIEW OF SYSTEMS: Unable to obtain because the patient was not cooperative. PHYSICAL EXAMINATION: VITAL SIGNS: Temperature 98.1, pulse 71, respirations 19, blood pressure 132/75, saturation 98%. HEENT: Atraumatic, normocephalic. Pupils react to light and accommodation. Ears, nose and throat are normal. NECK: Supple. No JVD. CHEST: There is few rhonchi in bases. HEART: Regular rhythm. ABDOMEN: Soft. EXTREMITIES: No edema. LABORATORY DATA: WBC is 5.2, hemoglobin 11.9, hematocrit 35.5, platelets 294. Sodium 135, potassium 3.6, BUN 16, creatinine is 3.0. Chest x-ray some atelectasis left base. No obvious infiltrates, cardiomegaly. IMPRESSION: This is a 77-year-old male with acute bronchitis, rule out early pneumonia. PLAN: 1. IV antibiotics. 2. Nebulizer treatment. 3. Hemodialysis. 4. Supportive care and a followup chest x-ray. We will follow the patient with you. Thank you very much for this consultation. JOB# [id number]
[2017-04-30] MEDS: Albuterol Nebulizer 2.5mg/3mL HHN SCH (22:55)
--- NOTE | 2017-04-30 23:29 | Consultation ---
DATE OF CONSULTATION: 04/30/2017 REASON FOR CONSULTATION: Electrolyte imbalance and fluid management. HISTORY OF PRESENT ILLNESS: This is a 77-year-old male with past medical history of end-stage renal disease on hemodialysis, who was brought in because of cough and congestion. Two days prior to admission, the patient developed cough and congestion. This was associated with fever. A few hours prior to admission, his appetite had deteriorated. He refused to eat his meals. He was then brought to the Emergency Room. His temperature was 97.8 with a white count of 5.2. Chest x-ray revealed questionable left basilar atelectasis. Chest x-ray done revealed left basilar atelectasis with questionable small effusion. He has a history of end-stage renal disease on hemodialysis and currently dialyzed on Thursday, Thursday and Thursday. PAST MEDICAL HISTORY: 1. End-stage renal disease, on hemodialysis. 2. Essential hypertension. 3. Dyslipidemia. 4. Alzheimer dementia. CURRENT MEDICATIONS: He is currently on aspirin, azithromycin, ceftriaxone, donepezil, ferrous sulfate, Proscar, folic acid, Keppra, pantoprazole, tamsulosin. ALLERGIES: No known drug allergies. SOCIAL AND FAMILY HISTORY: I was unable to obtain directly from the patient because he is currently stuporous. REVIEW OF SYSTEMS: Again, I was not able to decipher from the patient because of present mental status. PHYSICAL EXAMINATION: GENERAL: The patient is arousable, verbalizing, but only a few words, not in any form of distress. VITAL SIGNS: His temperature is 98.5 degrees, pulse 69, blood pressure 114/81. SKIN: Good turgor, warm, no rash, no jaundice appreciated. HEENT: Head normocephalic, atraumatic. Eyes: Extraocular muscles intact. Pupils equal, round, reactive to light and accommodates. Anicteric sclerae. Pale conjunctivae. Nose, midline nasal septum. Mouth, moist mucosa with adequate dentition. NECK: Supple, no adenopathy, no thyromegaly, no bruits. Trachea palpated in the midline. CHEST AND CARDIOVASCULAR: S1, S2. No rub, murmur or gallop appreciated. Point of maximal impulse fifth intercostal space, left midclavicular line. No abdominal or femoral bruits appreciated. LUNGS: Equal expansion, no use of accessory muscles. No supraclavicular retractions. Scattered rhonchi, minimal congestion, but no wheezes appreciated. ABDOMEN: Flat, soft, positive for bowel sounds. No bruits either diastolic or systolic. RECTAL: Lax sphincter tone. GENITOURINARY: Normal appearing male genitalia. MUSCULOSKELETAL: No effusions present in his joints, with adequate range of motion. EXTREMITIES: No evidence of edema, cyanosis or clubbing with palpable femoral, popliteal and dorsalis pedis pulses. NEUROLOGIC: The patient is arousable, but stuporous. Thus he was unable to follow my neuro commands and I was unable to pursue further my neuro exam. LABORATORY DATA: Revealed white count 5.2, hemoglobin 11.9, hematocrit 35.5, platelets 294, polys 73.2%. Sodium 135, potassium 3.6, chloride 98, bicarbonate 31, BUN is 16, creatinine is 3. Troponin is 0.01. Albumin 3.4. IMPRESSION: 1. End-stage renal disease, on hemodialysis. 2. Cough with congestion and fever secondary to acute tracheobronchitis, possible community-acquired pneumonia. 3. Essential hypertension. 4. Dyslipidemia. 5. Alzheimer dementia. PLAN: 1. Hemodialysis as scheduled. 2. Encourage p.o. intake. 3. Antipyretics. 4. Antibiotics. Thank you Dr. Wiggins for this consult. We will follow the patient closely with you. JOB# [id number]
[2017-05-01] MEDS: Albuterol Nebulizer 2.5mg/3mL HHN SCH ×3 (08:03→23:18)
--- NOTE | 2017-05-01 08:39 | Diagnostic Imaging Report ---
CHEST X-RAY: AP view INDICATION: Shortness of breath COMPARISON: 04/29/2017 FINDINGS: Right dialysis catheter is stable. Increased bibasilar lung markings are noted. Mildly prominent heart is noted. No evidence of CHF. IMPRESSION: Increased bibasal lung markings which may be due to atelectasis. Faint infiltrate is less likely.
[2017-05-01] MEDS ORDERED: Aspirin 81mg Chewable Tab PO SCH (09:00)
[2017-05-01] MEDS: Aspirin 81mg Chewable Tab PO SCH (09:30)
[2017-05-01] MEDS: Pantoprazole 40 mg EC Tab PO SCH ×2 (09:31→09:32)
[2017-05-01] MEDS ORDERED: Ferrous Sulfate 325 MG TAB PO SCH (13:00)
--- NOTE | 2017-05-01 17:29 | General Progress Note ---
Subjective - Review of Systems Service Date: 05/01/17 Subjective: sleeping, comfortable Objective - Results Result Diagrams: 04/29/17 17:55 04/29/17 17:55 Recent Labs: Laboratory Last Values WBC 5.2 Th/cmm (4.8-10.8) 04/29/17 17:55 RBC 3.90 Mil/cmm (3.80-5.80) 04/29/17 17:55 Hgb 11.9 gm/dL (12-16) L 04/29/17 17:55 Hct 35.5 % (41.0-60) L 04/29/17 17:55 MCV 91.0 fl (80-99) 04/29/17 17:55 MCH 30.4 pg (27.0-31.0) 04/29/17 17:55 MCHC Differential 33.4 pg (28.0-36.0) 04/29/17 17:55 RDW 13.3 % (11.5-20.0) 04/29/17 17:55 Plt Count 294 Th/cmm (150-400) 04/29/17 17:55 MPV 6.3 fl 04/29/17 17:55 Neutrophils % 73.2 % (40.0-80.0) 04/29/17 17:55 Lymphocytes % 13.9 % (20.0-50.0) L 04/29/17 17:55 Monocytes % 7.9 % (2.0-10.0) 04/29/17 17:55 Eosinophils % 3.2 % (0.0-5.0) 04/29/17 17:55 Basophils % 1.8 % (0.0-2.0) 04/29/17 17:55 PT 10.9 SECONDS (9.5-11.5) 04/29/17 17:55 INR 1.05 (0.5-1.4) 04/29/17 17:55 PTT (Actin FS) 25.8 SECONDS (26.0-38.0) L 04/29/17 17:55 Sodium 135 mEq/L (136-145) L 04/29/17 17:55 Potassium 3.6 mEq/L (3.5-5.1) 04/29/17 17:55 Chloride 98 mEq/L (98-107) 04/29/17 17:55 Carbon Dioxide 31.4 mEq/L (21.0-31.0) H 04/29/17 17:55 Anion Gap 9.2 (7.0-16.0) 04/29/17 17:55 BUN 16 mg/dL (7-25) 04/29/17 17:55 Creatinine 3.0 mg/dL (0.7-1.3) H 04/29/17 17:55 Est GFR ( Amer) TNP 04/29/17 17:55 Est GFR (Non-Af Amer) TNP 04/29/17 17:55 BUN/Creatinine Ratio 5.3 04/29/17 17:55 Glucose 103 mg/dL (70-105) 04/29/17 17:55 Whole Bld Lactic Acid 1.72 mmol/L (0.60-1.99) 04/29/17 17:55 Calcium 9.9 mg/dL (8.6-10.3) 04/29/17 17:55 Total Bilirubin 0.3 mg/dL (0.3-1.0) 04/29/17 17:55 AST 8 U/L (13-39) L 04/29/17 17:55 ALT 4 U/L (7-52) L 04/29/17 17:55 Alkaline Phosphatase 107 U/L (34-104) H 04/29/17 17:55 Creatine Kinase 17 U/L (30-223) L 04/29/17 17:55 Troponin I 0.01 ng/mL (0.01-0.05) 04/29/17 17:55 Total Protein 7.4 gm/dL (6.0-8.3) 04/29/17 17:55 Albumin 3.4 gm/dL (4.2-5.5) L 04/29/17 17:55 Globulin 4.0 gm/dL 04/29/17 17:55 Albumin/Globulin Ratio 0.9 (1.0-1.8) L 04/29/17 17:55 - Physical Exam Vitals and I&O: Vital Signs Temp 97.2 F 05/01/17 12:28 Pulse 59 05/01/17 15:35 Resp 20 05/01/17 15:35 BP 129/76 05/01/17 12:28 Pulse Ox 95 05/01/17 15:35 Intake & Output 04/30/17 05/01/17 05/01/17 18:59 06:59 18:59 Intake Total 800 100 Output Total 3 Balance 797 100 Weight (lbs) 72.575 kg 72.575 kg Intake: Oral 800 100 Output: Urine 3 Active Medications: Current Medications Albumin Human (Albuminar 25%) 25 gm IV PRN PRN PRN Reason: BP SUPPORT DURING HD Stop: 06/29/17 18:14 Albuterol Sulfate (Albuterol 2.5mg/3ml Neb Ud) 2.5 mg HHN Q8HRT [facility] Stop: 06/29/17 22:59 Last Admin: 05/01/17 15:33 Dose: 2.5 mg Aspirin (Aspirin Chewable) 81 mg PO DAILY [facility] Stop: 06/29/17 12:59 Last Admin: 05/01/17 09:30 Dose: 81 mg Atorvastatin Calcium (Lipitor) 10 mg PO HS [facility] PRN Reason: Protocol Stop: 06/29/17 20:59 Last Admin: 04/30/17 21:19 Dose: 10 mg Citalopram Hydrobromide (Celexa) 20 mg PO DAILY [facility] PRN Reason: Protocol Stop: 06/30/17 08:59 Donepezil HCl (Aricept) 5 mg PO DAILY [facility] Stop: 06/30/17 12:59 Last Admin: 05/01/17 12:09 Dose: 5 mg Ferrous Sulfate (Iron) 325 mg PO DAILY [facility] Stop: 06/30/17 12:59 Last Admin: 05/01/17 12:09 Dose: 325 mg Ferrous Sulfate (Iron) 325 mg PO BID [facility] Stop: 06/29/17 16:59 Finasteride (Proscar) 5 mg PO DAILY [facility] PRN Reason: Protocol Stop: 06/29/17 12:59 Last Admin: 05/01/17 09:31 Dose: 5 mg Folic Acid (Folate) 1 mg PO DAILY [facility] Stop: 06/29/17 11:59 Last Admin: 05/01/17 09:30 Dose: 1 mg Heparin Sodium (Porcine) (Heparin) 5,000 units HD PRN PRN PRN Reason: DIALYSIS PORTS Stop: 06/29/17 16:51 Azithromycin 500 mg/ Sodium (Chloride) 250 mls @ 250 mls/hr IV Q24HR [facility] Stop: 06/29/17 20:59 Last Admin: 04/30/17 21:18 Dose: 250 mls/hr Ceftriaxone Sodium 1 gm/ (Sodium Chloride) 50 mls @ 100 mls/hr IV Q24HR [facility] Stop: 06/29/17 20:59 Last Admin: 04/30/17 21:19 Dose: 100 mls/hr Levetiracetam (Keppra) 500 mg PO BID [facility] Stop: 06/29/17 16:59 Last Admin: 05/01/17 09:30 Dose: 500 mg Lorazepam (Ativan) 1 mg IVP Q6HR PRN; Protocol PRN Reason: Seizure Stop: 06/29/17 16:51 Metoprolol Tartrate (Lopressor) 25 mg PO DAILY [facility] Stop: 06/30/17 08:59 Last Admin: 05/01/17 09:30 Dose: 25 mg Mirtazapine (Remeron) 15 mg PO HS [facility] PRN Reason: Protocol Stop: 06/29/17 20:59 Mupirocin (Bactroban Oint) 1 appl NS BID [facility] Stop: 05/05/17 17:01 Last Admin: 05/01/17 09:32 Dose: 1 appl Olanzapine (Zyprexa) 2.5 mg PO HS [facility] PRN Reason: Protocol Stop: 06/29/17 20:59 Pantoprazole Sodium (Protonix) 40 mg PO DAILY [facility] Stop: 06/29/17 12:59 Last Admin: 05/01/17 09:31 Dose: 40 mg Pantoprazole Sodium (Protonix) 40 mg PO DAILY [facility] Stop: 06/30/17 08:59 Last Admin: 05/01/17 09:32 Dose: Not Given Tamsulosin HCl (Flomax) 0.4 mg PO DAILY [facility] Stop: 06/29/17 11:59 Last Admin: 05/01/17 09:30 Dose: 0.4 mg Tamsulosin HCl (Flomax) 0.4 mg PO BID [facility] Stop: 06/29/17 16:59 General: Alert, No acute distress HEENT: Atraumatic, EOMI, Mucous membr. moist/pink Neck: Supple, +2 carotid pulse wo bruit Cardiovascular: Regular rate, Normal S1, Normal S2 Lungs: Other (scattered rhonchi) Abdomen: Bowel sounds, Soft Extremities: no Edema Neurological: Sensation intact Skin: no Rash Psych/Mental Status: Mood NL - Procedures Procedures: Procedures Procedure Code Date INSERTION OF INFUSION DEV INTO SUP VENA CAVA, PERC APPROACH [id number] 01/16/17 PERFORMANCE OF URINARY FILTRATION, <6 HRS/DAY [id number] 01/16/17 ULTRASONOGRAPHY OF SUPERIOR VENA CAVA, GUIDANCE [id number] 01/16/17 Assessment/Plan - Assessment Assessment: ESRD on HD Acute tracheobronchitis Ess Htn Dyslipidemia Alzh Dementia - Plan Plan: Current Medications Albumin Human (Albuminar 25%) 25 gm IV PRN PRN PRN Reason: BP SUPPORT DURING HD Stop: 06/29/17 18:14 Albuterol Sulfate (Albuterol 2.5mg/3ml Neb Ud) 2.5 mg HHN Q8HRT [facility] Stop: 06/29/17 22:59 Last Admin: 05/01/17 15:33 Dose: 2.5 mg Aspirin (Aspirin Chewable) 81 mg PO DAILY [facility] Stop: 06/29/17 12:59 Last Admin: 05/01/17 09:30 Dose: 81 mg Atorvastatin Calcium (Lipitor) 10 mg PO HS [facility] PRN Reason: Protocol Stop: 06/29/17 20:59 Last Admin: 04/30/17 21:19 Dose: 10 mg Citalopram Hydrobromide (Celexa) 20 mg PO DAILY [facility] PRN Reason: Protocol Stop: 06/30/17 08:59 Donepezil HCl (Aricept) 5 mg PO DAILY [facility] Stop: 06/30/17 12:59 Last Admin: 05/01/17 12:09 Dose: 5 mg Ferrous Sulfate (Iron) 325 mg PO DAILY [facility] Stop: 06/30/17 12:59 Last Admin: 05/01/17 12:09 Dose: 325 mg Ferrous Sulfate (Iron) 325 mg PO BID [facility] Stop: 06/29/17 16:59 Finasteride (Proscar) 5 mg PO DAILY [facility] PRN Reason: Protocol Stop: 06/29/17 12:59 Last Admin: 05/01/17 09:31 Dose: 5 mg Folic Acid (Folate) 1 mg PO DAILY [facility] Stop: 06/29/17 11:59 Last Admin: 05/01/17 09:30 Dose: 1 mg Heparin Sodium (Porcine) (Heparin) 5,000 units HD PRN PRN PRN Reason: DIALYSIS PORTS Stop: 06/29/17 16:51 Azithromycin 500 mg/ Sodium (Chloride) 250 mls @ 250 mls/hr IV Q24HR [facility] Stop: 06/29/17 20:59 Last Admin: 04/30/17 21:18 Dose: 250 mls/hr Ceftriaxone Sodium 1 gm/ (Sodium Chloride) 50 mls @ 100 mls/hr IV Q24HR [facility] Stop: 06/29/17 20:59 Last Admin: 04/30/17 21:19 Dose: 100 mls/hr Levetiracetam (Keppra) 500 mg PO BID [facility] Stop: 06/29/17 16:59 Last Admin: 05/01/17 09:30 Dose: 500 mg Lorazepam (Ativan) 1 mg IVP Q6HR PRN; Protocol PRN Reason: Seizure Stop: 06/29/17 16:51 Metoprolol Tartrate (Lopressor) 25 mg PO DAILY [facility] Stop: 06/30/17 08:59 Last Admin: 05/01/17 09:30 Dose: 25 mg Mirtazapine (Remeron) 15 mg PO HS [facility] PRN Reason: Protocol Stop: 06/29/17 20:59 Mupirocin (Bactroban Oint) 1 appl NS BID [facility] Stop: 05/05/17 17:01 Last Admin: 05/01/17 09:32 Dose: 1 appl Olanzapine (Zyprexa) 2.5 mg PO HS [facility] PRN Reason: Protocol Stop: 06/29/17 20:59 Pantoprazole Sodium (Protonix) 40 mg PO DAILY [facility] Stop: 06/29/17 12:59 Last Admin: 05/01/17 09:31 Dose: 40 mg Pantoprazole Sodium (Protonix) 40 mg PO DAILY [facility] Stop: 06/30/17 08:59 Last Admin: 05/01/17 09:32 Dose: Not Given Tamsulosin HCl (Flomax) 0.4 mg PO DAILY [facility] Stop: 06/29/17 11:59 Last Admin: 05/01/17 09:30 Dose: 0.4 mg Tamsulosin HCl (Flomax) 0.4 mg PO BID [facility] Stop: 06/29/17 16:59 Lab - Result Diagrams 04/29/17 17:55 04/29/17 17:55 schedule for HD in am continue ABx f/u cultures
--- NOTE | 2017-05-01 17:56 | History and Physical ---
History of Present Illness - HPI Chief Complaint: cough and congestion HPI: This is a 77 year old male who is a intermediate resident who has a 3 day history of cough and congestion. Vital Signs: Last Vital Signs Temp 97.5 F 05/01/17 16:00 Pulse 62 05/01/17 16:00 Resp 18 05/01/17 16:00 BP 149/86 05/01/17 16:00 Pulse Ox 97 05/01/17 16:00 Past Medical History Other History: esrd on hd htn dyslipidemia alzheimer dementia Family Medical History - Family Member Mother History Unknown: Yes Ethnicity: Non- Living Status: Social History Smoke: No Alcohol: None Drugs: None Lives: Half-Way - Medications Home Medications: Home Medication Medication Instructions Recorded Type Aspirin 81 mg PO DAILY 01/16/17 History Atorvastatin Calcium [Lipitor] 10 mg PO HS 01/16/17 History Citalopram Hydrobromide 20 mg PO DAILY 01/16/17 History [Citalopram HBr] Ferrous Sulfate [Iron] 325 mg PO BID 01/16/17 History Finasteride [Proscar] 5 mg PO DAILY 01/16/17 History Folic Acid [Folate*] 1 mg PO DAILY 01/16/17 History Metoprolol Tartrate 25 mg PO DAILY 01/16/17 History Mirtazapine [Remeron] 15 mg PO HS 01/16/17 History OLANZapine [ZyPREXA] 2.5 mg PO HS 01/16/17 History Pantoprazole Sodium 40 mg PO DAILY 01/16/17 History Tamsulosin HCl [Flomax] 0.4 mg PO BID 01/16/17 History Albumin 25% 25gm/100mL [Albuminar 25 gm IV PRN PRN btl 01/20/17 Rx 25%] Donepezil Hcl [Aricept] 5 mg PO DAILY tab 01/20/17 Rx Heparin Sodium [Heparin*] 5,000 units HD PRN PRN vial 01/20/17 Rx Levetiracetam [Keppra] 500 mg PO BID tab 01/20/17 Rx Lorazepam [Ativan] 1 mg IVP Q6HR PRN vial 01/20/17 Rx - Allergies Allergies/Adverse Reactions: Allergies Allergy/AdvReac Type Severity Reaction Status Date / Time No Known Allergies Allergy Verified 12/31/16 10:47 Review of Systems - Review of Systems Constitutional: Report: Weakness Eyes: Report: No Significant Respiratory: Report: Cough Cardiovascular: Report: No Significant Neurological: Report: Weakness Physical Exam - Physical Exam HEENT: Report: Ears Nose Throat within normal limits Neck: Report: Within normal limits Cardiovascular Systems: Report: +s1/s2 noted, Regular, Rate and Rhythm Respiratory: Report: Breath Sounds are within normal limits Abdomen: Report: Non-tender to palpation Skin: Report: Warm, Dry Neuro/Psych: Report: Mood affect is within normal limits - Lab Results All Lab Results last 24 hours: Microbiology 04/29/17 20:25 - Final Nares Staph Aureus-Mrsa Isolated - Assessment Assessment: cough possible pna esrd on hd htn dyslipidemia alzheimer dementia - Plan Plan: pulmo/nephrology consultation follow up labs in am supplemental oxygen and inhalation tx continue current orders
[2017-05-01] MEDS: Azithromycin 500 mg in 0.9% NS 250 mL IV SCH (20:59)
[2017-05-01] MEDS: cefTRIAXone 1 GM in 0.9% NS 50 ML IV SCH (22:44)
[2017-05-01] MEDS: Atorvastatin Calcium 10 MG TAB PO SCH (22:45)
[2017-05-02] MEDS ORDERED: Albumin 25% 25gm/100mL 25 GM/100 ML BTL IV PRN
[2017-05-02] MEDS: Albuterol Nebulizer 2.5mg/3mL HHN SCH ×3 (07:27→23:43)
[2017-05-02] MEDS ORDERED: Heparin Sod 1,000 Units/mL 10ml HD PRN (10:39)
[2017-05-02] MEDS: Aspirin 81mg Chewable Tab PO SCH (12:55)
[2017-05-02] MEDS: Ferrous Sulfate 325 MG TAB PO SCH ×2 (12:58→17:36)
[2017-05-02] MEDS: Pantoprazole 40 mg EC Tab PO SCH ×2 (12:58→12:59)
[2017-05-02] MEDS: cefTRIAXone 1 GM in 0.9% NS 50 ML IV SCH (21:55)
[2017-05-02] MEDS: Azithromycin 500 mg in 0.9% NS 250 mL IV SCH (21:55)
[2017-05-02] MEDS: Atorvastatin Calcium 10 MG TAB PO SCH (22:04)
--- NOTE | 2017-05-02 23:12 | Consultation ---
DATE OF CONSULTATION: 05/02/2017 REFERRING PHYSICIAN: Dr. Wiggins. REASON FOR CONSULTATION: Infected Perm-A-Cath and pneumonia. HISTORY OF PRESENT ILLNESS: The patient is a 77-year-old male with a past medical history of CKD stage V, on hemodialysis through Perm-A-Cath, hypertension, dementia, Parkinson's disease, dyslipidemia, brought in for fever and cough for 2 days. It was associated with congestion. On initial evaluation, his temperature was 97.8 degree Fahrenheit and WBC count was 5200. Chest x-ray showed left lower lobe atelectasis. The patient was started on Zithromax and Rocephin. ID consult was called for antibiotic management. Meanwhile, the patient was also noted to have excoriation and redness around the Perm-A-Cath site. PAST MEDICAL HISTORY: Includes hypertension, CKD stage V, on hemodialysis via Perm-A-Cath, dyslipidemia, dementia, Parkinson's disease. MEDICATIONS: Per medication reconciliation sheet. Antibiotic dang, the patient is on Rocephin and Zithromax. ALLERGIES: NKDA. SOCIAL HISTORY: The patient denies any smoking, alcohol or drug use. FAMILY HISTORY: Diabetes mellitus and hypertension. PHYSICAL EXAMINATION: VITAL SIGNS: Shows temperature is 97.5, pulse 62, respiration 18, blood pressure 149/86. GENERAL: The patient is comfortable lying in bed, not in acute distress. HEENT: Head is normocephalic, atraumatic. Oral cavity moist, pink tongue. Eyes: Pallor is present, no icterus. PERRLA, EOMI. NECK: Supple. No JVD or bruit. Trachea midline. CHEST: Bilateral breath sounds. No crackles or wheezing. SKIN: The patient has a Perm-A-Cath on the right subclavian area with mild surrounding erythema, but ____ in the picture. HEART: S1, S2 within normal limits. Systolic murmur present. ABDOMEN: Soft, nontender, nondistended. Bowel sounds present. EXTREMITIES: No cyanosis, no clubbing, no edema. NEUROLOGICAL: Alert, awake, oriented x 3. Follows the command. LABORATORY DATA: Current lab shows WBC count is 5200, hemoglobin 11.9, hematocrit 35.5, platelets are 294,000, neutrophils 73%. Sodium 135, potassium 3.6, chloride 98, bicarbonate is 31.4, BUN is 16, creatinine 3, glucose is 103. Chest x-ray showed left lower lobe atelectasis versus pneumonia. IMPRESSION: 1. Left lower lobe pneumonia. 2. Possible line infection, although the blood cultures are negative. There is no discharge at this time. 3. 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 4. Hypertension. 5. Dementia and Parkinson disease. RECOMMENDATIONS: We will continue same antibiotics, Rocephin and Zithromax at this time. Followup the Perm-A-Cath site. If any discharge or worsening erythema, may discontinue Perm-A-Cath. If the condition improves and blood stream is negative, we will continue the same treatment. Thank you, Dr. Wiggins for involving me in taking care of this patient. JOB# [id number]
--- NOTE | 2017-05-03 00:08 | Progress Notes ---
DATE: 05/02/2017 SUBJECTIVE: The patient was seen in his room with ongoing dialysis. The patient is a poor historian due to medical condition otherwise in no acute distress. OBJECTIVE: VITAL SIGNS: Temperature 97.8, heart rate 76, blood pressure 141/68, respiration of 18, 97% on room air. HEENT: Head is atraumatic and normocephalic. Eyes: Bilateral conjunctivae are clear. Bilateral pupils are equally round and reactive. NECK: Supple. No JVD. CARDIOVASCULAR: S1 and S2, without murmur. PULMONARY: Decreased breath sounds. GASTROINTESTINAL: Soft and nontender without guarding. Positive bowel sounds. MUSCULOSKELETAL: No clubbing. No cyanosis noted. ASSESSMENT: 1. Bronchitis. 2. Possible pneumonia. 3. Hypertension. 4. End-stage renal disease, hemodialysis dependent. 5. Hyperlipidemia. 6. Dementia. PLAN: We will continue IV antibiotics. We will also continue breathing treatment and continue hemodialysis as scheduled. Treatment plans were discussed with the patient's nurse. Treatment plans were discussed with Dr. Wiggins. JOB# [id number]
[2017-05-03] MEDS: Albuterol Nebulizer 2.5mg/3mL HHN SCH ×3 (08:06→23:35)
[2017-05-03] MEDS: Pantoprazole 40 mg EC Tab PO SCH ×2 (09:34→09:35)
[2017-05-03] MEDS: Ferrous Sulfate 325 MG TAB PO SCH ×2 (09:34→16:29)
[2017-05-03] MEDS: Aspirin 81mg Chewable Tab PO SCH (09:35)
--- NOTE | 2017-05-03 10:13 | General Progress Note ---
Subjective - Review of Systems Events since last encounter: in no distress congested,cough Objective - Results Result Diagrams: 04/29/17 17:55 04/29/17 17:55 Recent Labs: Laboratory Last Values WBC 5.2 Th/cmm (4.8-10.8) 04/29/17 17:55 RBC 3.90 Mil/cmm (3.80-5.80) 04/29/17 17:55 Hgb 11.9 gm/dL (12-16) L 04/29/17 17:55 Hct 35.5 % (41.0-60) L 04/29/17 17:55 MCV 91.0 fl (80-99) 04/29/17 17:55 MCH 30.4 pg (27.0-31.0) 04/29/17 17:55 MCHC Differential 33.4 pg (28.0-36.0) 04/29/17 17:55 RDW 13.3 % (11.5-20.0) 04/29/17 17:55 Plt Count 294 Th/cmm (150-400) 04/29/17 17:55 MPV 6.3 fl 04/29/17 17:55 Neutrophils % 73.2 % (40.0-80.0) 04/29/17 17:55 Lymphocytes % 13.9 % (20.0-50.0) L 04/29/17 17:55 Monocytes % 7.9 % (2.0-10.0) 04/29/17 17:55 Eosinophils % 3.2 % (0.0-5.0) 04/29/17 17:55 Basophils % 1.8 % (0.0-2.0) 04/29/17 17:55 PT 10.9 SECONDS (9.5-11.5) 04/29/17 17:55 INR 1.05 (0.5-1.4) 04/29/17 17:55 PTT (Actin FS) 25.8 SECONDS (26.0-38.0) L 04/29/17 17:55 Sodium 135 mEq/L (136-145) L 04/29/17 17:55 Potassium 3.6 mEq/L (3.5-5.1) 04/29/17 17:55 Chloride 98 mEq/L (98-107) 04/29/17 17:55 Carbon Dioxide 31.4 mEq/L (21.0-31.0) H 04/29/17 17:55 Anion Gap 9.2 (7.0-16.0) 04/29/17 17:55 BUN 16 mg/dL (7-25) 04/29/17 17:55 Creatinine 3.0 mg/dL (0.7-1.3) H 04/29/17 17:55 Est GFR ( Amer) TNP 04/29/17 17:55 Est GFR (Non-Af Amer) TNP 04/29/17 17:55 BUN/Creatinine Ratio 5.3 04/29/17 17:55 Glucose 103 mg/dL (70-105) 04/29/17 17:55 Whole Bld Lactic Acid 1.72 mmol/L (0.60-1.99) 04/29/17 17:55 Calcium 9.9 mg/dL (8.6-10.3) 04/29/17 17:55 Total Bilirubin 0.3 mg/dL (0.3-1.0) 04/29/17 17:55 AST 8 U/L (13-39) L 04/29/17 17:55 ALT 4 U/L (7-52) L 04/29/17 17:55 Alkaline Phosphatase 107 U/L (34-104) H 04/29/17 17:55 Creatine Kinase 17 U/L (30-223) L 04/29/17 17:55 Troponin I 0.01 ng/mL (0.01-0.05) 04/29/17 17:55 Total Protein 7.4 gm/dL (6.0-8.3) 04/29/17 17:55 Albumin 3.4 gm/dL (4.2-5.5) L 04/29/17 17:55 Globulin 4.0 gm/dL 04/29/17 17:55 Albumin/Globulin Ratio 0.9 (1.0-1.8) L 04/29/17 17:55 - Physical Exam Vitals and I&O: Vital Signs Temp 98.7 F 05/03/17 05:00 Pulse 73 05/03/17 09:34 Resp 18 05/03/17 08:51 BP 137/85 05/03/17 09:34 Pulse Ox 97 05/03/17 08:10 Intake & Output 05/02/17 05/03/17 05/03/17 17:59 06:59 18:59 Intake Total Balance Weight (lbs) Intake: Oral Other: # Voids # Bowel Movements Active Medications: Current Medications Albumin Human (Albuminar 25%) 25 gm IV PRN PRN PRN Reason: BP SUPPORT DURING HD Stop: 06/29/17 18:14 Albuterol Sulfate (Albuterol 2.5mg/3ml Neb Ud) 2.5 mg HHN Q8HRT [facility] Stop: 06/29/17 22:59 Last Admin: 05/03/17 08:06 Dose: 2.5 mg Aspirin (Aspirin Chewable) 81 mg PO DAILY [facility] Stop: 06/29/17 12:59 Last Admin: 05/03/17 09:35 Dose: 81 mg Atorvastatin Calcium (Lipitor) 10 mg PO HS [facility] PRN Reason: Protocol Stop: 06/29/17 20:59 Last Admin: 05/02/17 22:04 Dose: 10 mg Citalopram Hydrobromide (Celexa) 20 mg PO DAILY [facility] PRN Reason: Protocol Stop: 06/30/17 08:59 Donepezil HCl (Aricept) 5 mg PO DAILY [facility] Stop: 06/30/17 12:59 Last Admin: 05/03/17 09:35 Dose: 5 mg Ferrous Sulfate (Iron) 325 mg PO BID [facility] Stop: 06/29/17 16:59 Last Admin: 05/03/17 09:34 Dose: 325 mg Finasteride (Proscar) 5 mg PO DAILY [facility] PRN Reason: Protocol Stop: 06/29/17 12:59 Last Admin: 05/03/17 09:35 Dose: 5 mg Folic Acid (Folate) 1 mg PO DAILY [facility] Stop: 06/29/17 11:59 Last Admin: 05/03/17 09:34 Dose: 1 mg Heparin Sodium (Porcine) (Heparin Sodium) 10,000 units HD PRN PRN PRN Reason: Dialysis Stop: 07/01/17 10:44 Azithromycin 500 mg/ Sodium (Chloride) 250 mls @ 250 mls/hr IV Q24HR [facility] Stop: 06/29/17 20:59 Last Admin: 05/02/17 21:55 Dose: 250 mls/hr Ceftriaxone Sodium 1 gm/ (Sodium Chloride) 50 mls @ 100 mls/hr IV Q24HR [facility] Stop: 06/29/17 20:59 Last Admin: 05/02/17 21:55 Dose: 100 mls/hr Albumin Human (Albuminar 25%) 25 gm in 100 mls @ 50 mls/hr IV PRN PRN PRN Reason: BP Support During HD Levetiracetam (Keppra) 500 mg PO BID [facility] Stop: 06/29/17 16:59 Last Admin: 05/03/17 09:34 Dose: 500 mg Lorazepam (Ativan) 1 mg IVP Q6HR PRN; Protocol PRN Reason: Seizure Stop: 06/29/17 16:51 Last Admin: 05/02/17 23:46 Dose: 1 mg Metoprolol Tartrate (Lopressor) 25 mg PO DAILY [facility] Stop: 06/30/17 08:59 Last Admin: 05/03/17 09:34 Dose: 25 mg Mirtazapine (Remeron) 15 mg PO HS [facility] PRN Reason: Protocol Stop: 06/29/17 20:59 Mupirocin (Bactroban Oint) 1 appl NS BID [facility] Stop: 05/05/17 17:01 Last Admin: 05/03/17 09:35 Dose: 1 appl Olanzapine (Zyprexa) 2.5 mg PO HS [facility] PRN Reason: Protocol Stop: 06/29/17 20:59 Pantoprazole Sodium (Protonix) 40 mg PO DAILY [facility] Stop: 06/29/17 12:59 Last Admin: 05/03/17 09:34 Dose: 40 mg Pantoprazole Sodium (Protonix) 40 mg PO DAILY [facility] Stop: 06/30/17 08:59 Last Admin: 05/03/17 09:35 Dose: Not Given Tamsulosin HCl (Flomax) 0.4 mg PO BID [facility] Stop: 06/29/17 16:59 Last Admin: 05/03/17 09:34 Dose: 0.4 mg General: Alert, No acute distress HEENT: Atraumatic, EOMI, Mucous membr. moist/pink Neck: Supple, +2 carotid pulse wo bruit Cardiovascular: Regular rate, Normal S1, Normal S2 Lungs: Other (scattered rhonchi) Abdomen: Bowel sounds, Soft Extremities: no Edema Neurological: Sensation intact Skin: no Rash Psych/Mental Status: Mood NL - Procedures Procedures: Procedures Procedure Code Date INSERTION OF INFUSION DEV INTO SUP VENA CAVA, PERC APPROACH [id number] 01/16/17 PERFORMANCE OF URINARY FILTRATION, <6 HRS/DAY [id number] 01/16/17 ULTRASONOGRAPHY OF SUPERIOR VENA CAVA, GUIDANCE [id number] 01/16/17
[2017-05-03] MEDS ORDERED: Cefepime 1 GM in Sodium Chloride 0.9% 50 ML IV SCH (19:15)
[2017-05-03] MEDS ORDERED: Cefepime 1 GM in Sodium Chloride 0.9% 50 ML IV ONE (21:00)
[2017-05-03] MEDS: Atorvastatin Calcium 10 MG TAB PO SCH (21:50)
--- NOTE | 2017-05-03 23:51 | Infectious Disease Prog Note ---
Infectious Disease Subjective - Review of Systems Service Date: 05/03/17 Subjective: There is no new change. Infectious Disease Objective - Results Result Diagrams: 04/29/17 17:55 04/29/17 17:55 Recent Labs: Laboratory Last Values WBC 5.2 Th/cmm (4.8-10.8) 04/29/17 17:55 RBC 3.90 Mil/cmm (3.80-5.80) 04/29/17 17:55 Hgb 11.9 gm/dL (12-16) L 04/29/17 17:55 Hct 35.5 % (41.0-60) L 04/29/17 17:55 MCV 91.0 fl (80-99) 04/29/17 17:55 MCH 30.4 pg (27.0-31.0) 04/29/17 17:55 MCHC Differential 33.4 pg (28.0-36.0) 04/29/17 17:55 RDW 13.3 % (11.5-20.0) 04/29/17 17:55 Plt Count 294 Th/cmm (150-400) 04/29/17 17:55 MPV 6.3 fl 04/29/17 17:55 Neutrophils % 73.2 % (40.0-80.0) 04/29/17 17:55 Lymphocytes % 13.9 % (20.0-50.0) L 04/29/17 17:55 Monocytes % 7.9 % (2.0-10.0) 04/29/17 17:55 Eosinophils % 3.2 % (0.0-5.0) 04/29/17 17:55 Basophils % 1.8 % (0.0-2.0) 04/29/17 17:55 PT 10.9 SECONDS (9.5-11.5) 04/29/17 17:55 INR 1.05 (0.5-1.4) 04/29/17 17:55 PTT (Actin FS) 25.8 SECONDS (26.0-38.0) L 04/29/17 17:55 Sodium 135 mEq/L (136-145) L 04/29/17 17:55 Potassium 3.6 mEq/L (3.5-5.1) 04/29/17 17:55 Chloride 98 mEq/L (98-107) 04/29/17 17:55 Carbon Dioxide 31.4 mEq/L (21.0-31.0) H 04/29/17 17:55 Anion Gap 9.2 (7.0-16.0) 04/29/17 17:55 BUN 16 mg/dL (7-25) 04/29/17 17:55 Creatinine 3.0 mg/dL (0.7-1.3) H 04/29/17 17:55 Est GFR ( Amer) TNP 04/29/17 17:55 Est GFR (Non-Af Amer) TNP 04/29/17 17:55 BUN/Creatinine Ratio 5.3 04/29/17 17:55 Glucose 103 mg/dL (70-105) 04/29/17 17:55 Whole Bld Lactic Acid 1.72 mmol/L (0.60-1.99) 04/29/17 17:55 Calcium 9.9 mg/dL (8.6-10.3) 04/29/17 17:55 Total Bilirubin 0.3 mg/dL (0.3-1.0) 04/29/17 17:55 AST 8 U/L (13-39) L 04/29/17 17:55 ALT 4 U/L (7-52) L 04/29/17 17:55 Alkaline Phosphatase 107 U/L (34-104) H 04/29/17 17:55 Creatine Kinase 17 U/L (30-223) L 04/29/17 17:55 Troponin I 0.01 ng/mL (0.01-0.05) 04/29/17 17:55 Total Protein 7.4 gm/dL (6.0-8.3) 04/29/17 17:55 Albumin 3.4 gm/dL (4.2-5.5) L 04/29/17 17:55 Globulin 4.0 gm/dL 04/29/17 17:55 Albumin/Globulin Ratio 0.9 (1.0-1.8) L 04/29/17 17:55 - Physical Exam Vitals and I&O: Vital Signs Temp 97.4 F 05/03/17 20:00 Pulse 77 05/03/17 23:36 Resp 18 05/03/17 23:36 BP 139/81 05/03/17 20:00 Pulse Ox 97 05/03/17 23:36 Intake & Output 05/03/17 05/03/17 05/04/17 06:59 18:59 06:59 Intake Total 400 Balance 400 Weight (lbs) 72.62 kg Intake: Oral 400 Other: # Voids 2 # Bowel Movements 0 Active Medications: Current Medications Albumin Human (Albuminar 25%) 25 gm IV PRN PRN PRN Reason: BP SUPPORT DURING HD Stop: 06/29/17 18:14 Albuterol Sulfate (Albuterol 2.5mg/3ml Neb Ud) 2.5 mg HHN Q8HRT [facility] Stop: 06/29/17 22:59 Last Admin: 05/03/17 23:35 Dose: 2.5 mg Aspirin (Aspirin Chewable) 81 mg PO DAILY [facility] Stop: 06/29/17 12:59 Last Admin: 05/03/17 09:35 Dose: 81 mg Atorvastatin Calcium (Lipitor) 10 mg PO HS [facility] PRN Reason: Protocol Stop: 06/29/17 20:59 Last Admin: 05/03/17 21:50 Dose: 10 mg Citalopram Hydrobromide (Celexa) 20 mg PO DAILY [facility] PRN Reason: Protocol Stop: 06/30/17 08:59 Donepezil HCl (Aricept) 5 mg PO DAILY [facility] Stop: 06/30/17 12:59 Last Admin: 05/03/17 09:35 Dose: 5 mg Ferrous Sulfate (Iron) 325 mg PO BID [facility] Stop: 06/29/17 16:59 Last Admin: 05/03/17 16:29 Dose: 325 mg Finasteride (Proscar) 5 mg PO DAILY [facility] PRN Reason: Protocol Stop: 06/29/17 12:59 Last Admin: 05/03/17 09:35 Dose: 5 mg Folic Acid (Folate) 1 mg PO DAILY [facility] Stop: 06/29/17 11:59 Last Admin: 05/03/17 09:34 Dose: 1 mg Heparin Sodium (Porcine) (Heparin Sodium) 10,000 units HD PRN PRN PRN Reason: Dialysis Stop: 07/01/17 10:44 Albumin Human (Albuminar 25%) 25 gm in 100 mls @ 50 mls/hr IV PRN PRN PRN Reason: BP Support During HD Vancomycin HCl 1 gm/ Sodium (Chloride) 250 mls @ 165 mls/hr IV X1 ONE Stop: 05/04/17 02:30 Cefepime HCl 1 gm/ Sodium (Chloride) 50 mls @ 100 mls/hr IV X1 ONE Stop: 05/04/17 09:29 Levetiracetam (Keppra) 500 mg PO BID [facility] Stop: 06/29/17 16:59 Last Admin: 05/03/17 16:29 Dose: 500 mg Lorazepam (Ativan) 1 mg IVP Q6HR PRN; Protocol PRN Reason: Seizure Stop: 06/29/17 16:51 Last Admin: 05/02/17 23:46 Dose: 1 mg Metoprolol Tartrate (Lopressor) 25 mg PO DAILY [facility] Stop: 06/30/17 08:59 Last Admin: 05/03/17 09:34 Dose: 25 mg Mirtazapine (Remeron) 15 mg PO HS [facility] PRN Reason: Protocol Stop: 06/29/17 20:59 Mupirocin (Bactroban Oint) 1 appl NS BID [facility] Stop: 05/05/17 17:01 Last Admin: 05/03/17 16:30 Dose: 1 appl Olanzapine (Zyprexa) 2.5 mg PO HS [facility] PRN Reason: Protocol Stop: 06/29/17 20:59 Pantoprazole Sodium (Protonix) 40 mg PO DAILY [facility] Stop: 06/29/17 12:59 Last Admin: 05/03/17 09:34 Dose: 40 mg Pantoprazole Sodium (Protonix) 40 mg PO DAILY [facility] Stop: 06/30/17 08:59 Last Admin: 05/03/17 09:35 Dose: Not Given Tamsulosin HCl (Flomax) 0.4 mg PO BID [facility] Stop: 06/29/17 16:59 Last Admin: 05/03/17 16:29 Dose: 0.4 mg General: no acute distress, well developed, well nourished HEENT: atraumatic, normocephalic, PERRLA Neck: supple, thyromegaly Cardiovascular: S1S2, regular Lungs: clear to auscultation bilaterally, clear to percussion Abdomen: soft, no tender, no distended Extremities: no cyanosis, no clubbing, no edema Neurological: awake, alert, oriented Skin: intact, other (redness arounf the perma cath site) - Procedures Procedures: Procedures Procedure Code Date INSERTION OF INFUSION DEV INTO SUP VENA CAVA, PERC APPROACH 84CC55N 01/16/17 PERFORMANCE OF URINARY FILTRATION, <6 HRS/DAY [id number] 01/16/17 ULTRASONOGRAPHY OF SUPERIOR VENA CAVA, GUIDANCE [id number] 01/16/17 Infectious Disease Assmt/Plan - Assessment Assessment: 1. Left lower lobe pneumonia. 2. Possible line infection, although the blood cultures are negative. There is no discharge at this time. 3. 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 4. Hypertension. 5. Dementia and Parkinson disease. 6. MRSA Colonization. 7. Chest wall cellulitis - Plan Plan: RECOMMENDATIONS: Continue cefepime and vanco IV. May consider changing the perma cath if there is no improvement.
[2017-05-04 06:21] LABS: % BASOPHILS 0.1 % (0.0-2.0); % EOSINOPHILS 4.3 % (0.0-5.0); % LYMPHOCYTES 18.6 % (20.0-50.0); % MONOCYTES 6.9 % (2.0-10.0); % NEUTROPHILS 70.1 % (40.0-80.0); EOSINOPHILE ABSOLUTE 0.2 Th/cmm (0.1-0.4); HEMATOCRIT 32.4 % (41.0-60); MEAN CELL VOLUME 89.7 fl (80-99); MEAN CORPUSCULAR HEMOGLOBIN 30.3 pg (27.0-31.0); MEAN CORPUSCULAR HGB CONC 33.8 pg (28.0-36.0); MEAN PLATELET VOLUME 7.1 fl; MONOCYTE ABSOLUTE 0.4 Th/cmm (0.3-1.0); NEUTROPHILE ABSOLUTE 3.8 Th/cmm (1.8-8.0); PLATELET COUNT 278 Th/cmm (150-400); RED BLOOD COUNT 3.61 Mil/cmm (3.80-5.80); RED CELL DISTRIBUTION WIDTH 13.1 % (11.5-20.0); WHITE BLOOD COUNT 5.4 Th/cmm (4.8-10.8)
[2017-05-04 06:38] LABS: ALB/GLOB RATIO 0.9 (1.0-1.8); ALBUMIN 3.2 gm/dL (4.2-5.5); ALKALINE PHOSPHATASE 89 U/L (34-104); ANION GAP 11.2 (7.0-16.0); BILIRUBIN,TOTAL 0.3 mg/dL (0.3-1.0); BUN - UREA NITROGEN 15 mg/dL (7-25); CALCIUM SERUM 10.1 mg/dL (8.6-10.3); CHLORIDE 104 mEq/L (98-107); GLUCOSE 87 mg/dL (70-105); POTASSIUM SERUM 3.2 mEq/L (3.5-5.1); SGOT 9 U/L (13-39); SGPT/ALT 5 U/L (7-52); SODIUM SERUM 139 mEq/L (136-145); TOTAL PROTEIN,SERUM 6.8 gm/dL (6.0-8.3)
[2017-05-04] MEDS: Albuterol Nebulizer 2.5mg/3mL HHN SCH ×3 (07:23→22:00)
--- NOTE | 2017-05-04 08:36 | Diagnostic Imaging Report ---
CHEST X-RAY: AP view INDICATION: Shortness of breath COMPARISON: 05/01/2017 FINDINGS: Right dialysis catheter is stable. Increased bibasilar lung markings are noted. There is a trace left effusion. No focal consolidation definite. Cardiomegaly is noted. There is retrocardiac density. IMPRESSION: Increased bibasilar lung markings favoring atelectatic changes. Underlying infiltrate is less likely. Retrocardiac density. Hiatal hernia cannot be completely excluded. If necessary CT follow-up may be obtained. Cardiomegaly.
[2017-05-04] MEDS ORDERED: Cefepime 1 GM in Sodium Chloride 0.9% 50 ML IV SCH (09:00)
[2017-05-04] MEDS ORDERED: Cefepime 1 GM in Sodium Chloride 0.9% 50 ML IV ONE (09:00)
--- NOTE | 2017-05-04 09:38 | General Progress Note ---
Subjective - Review of Systems Events since last encounter: no change Objective - Results Result Diagrams: 05/04/17 05:40 05/04/17 05:40 Recent Labs: Laboratory Last Values WBC 5.4 Th/cmm (4.8-10.8) 05/04/17 05:40 RBC 3.61 Mil/cmm (3.80-5.80) L 05/04/17 05:40 Hgb 11.0 gm/dL (12-16) L 05/04/17 05:40 Hct 32.4 % (41.0-60) L 05/04/17 05:40 MCV 89.7 fl (80-99) 05/04/17 05:40 MCH 30.3 pg (27.0-31.0) 05/04/17 05:40 MCHC Differential 33.8 pg (28.0-36.0) 05/04/17 05:40 RDW 13.1 % (11.5-20.0) 05/04/17 05:40 Plt Count 278 Th/cmm (150-400) 05/04/17 05:40 MPV 7.1 fl 05/04/17 05:40 Neutrophils % 70.1 % (40.0-80.0) 05/04/17 05:40 Lymphocytes % 18.6 % (20.0-50.0) L 05/04/17 05:40 Monocytes % 6.9 % (2.0-10.0) 05/04/17 05:40 Eosinophils % 4.3 % (0.0-5.0) 05/04/17 05:40 Basophils % 0.1 % (0.0-2.0) 05/04/17 05:40 PT 10.9 SECONDS (9.5-11.5) 04/29/17 17:55 INR 1.05 (0.5-1.4) 04/29/17 17:55 PTT (Actin FS) 25.8 SECONDS (26.0-38.0) L 04/29/17 17:55 Sodium 139 mEq/L (136-145) 05/04/17 05:40 Potassium 3.2 mEq/L (3.5-5.1) L 05/04/17 05:40 Chloride 104 mEq/L (98-107) 05/04/17 05:40 Carbon Dioxide 27.0 mEq/L (21.0-31.0) 05/04/17 05:40 Anion Gap 11.2 (7.0-16.0) 05/04/17 05:40 BUN 15 mg/dL (7-25) 05/04/17 05:40 Creatinine 5.0 mg/dL (0.7-1.3) H* 05/04/17 05:40 Est GFR ( Amer) TNP 05/04/17 05:40 Est GFR (Non-Af Amer) TNP 05/04/17 05:40 BUN/Creatinine Ratio 3.0 05/04/17 05:40 Glucose 87 mg/dL (70-105) 05/04/17 05:40 Whole Bld Lactic Acid 1.72 mmol/L (0.60-1.99) 04/29/17 17:55 Calcium 10.1 mg/dL (8.6-10.3) 05/04/17 05:40 Total Bilirubin 0.3 mg/dL (0.3-1.0) 05/04/17 05:40 AST 9 U/L (13-39) L 05/04/17 05:40 ALT 5 U/L (7-52) L 05/04/17 05:40 Alkaline Phosphatase 89 U/L (34-104) 05/04/17 05:40 Creatine Kinase 17 U/L (30-223) L 04/29/17 17:55 Troponin I 0.01 ng/mL (0.01-0.05) 04/29/17 17:55 Total Protein 6.8 gm/dL (6.0-8.3) 05/04/17 05:40 Albumin 3.2 gm/dL (4.2-5.5) L 05/04/17 05:40 Globulin 3.6 gm/dL 05/04/17 05:40 Albumin/Globulin Ratio 0.9 (1.0-1.8) L 05/04/17 05:40 - Physical Exam Vitals and I&O: Vital Signs Temp 98.1 F 05/04/17 04:00 Pulse 96 05/04/17 07:23 Resp 18 05/04/17 07:23 BP 149/86 05/04/17 04:00 Pulse Ox 99 05/04/17 07:23 Intake & Output 05/03/17 05/04/17 05/04/17 18:59 06:59 18:59 Intake Total 400 250 Balance 400 250 Weight (lbs) 72.62 kg 74.253 kg Intake: Oral 400 250 Other: # Voids 2 3 # Bowel Movements 0 1 Stool Characteristics Soft Active Medications: Current Medications Albuterol Sulfate (Albuterol 2.5mg/3ml Neb Ud) 2.5 mg HHN Q8HRT [facility] Stop: 06/29/17 22:59 Last Admin: 05/04/17 07:23 Dose: 2.5 mg Aspirin (Aspirin Chewable) 81 mg PO DAILY [facility] Stop: 06/29/17 12:59 Last Admin: 05/03/17 09:35 Dose: 81 mg Atorvastatin Calcium (Lipitor) 10 mg PO HS [facility] PRN Reason: Protocol Stop: 06/29/17 20:59 Last Admin: 05/03/17 21:50 Dose: 10 mg Citalopram Hydrobromide (Celexa) 20 mg PO DAILY [facility] PRN Reason: Protocol Stop: 06/30/17 08:59 Donepezil HCl (Aricept) 5 mg PO DAILY [facility] Stop: 06/30/17 12:59 Last Admin: 05/03/17 09:35 Dose: 5 mg Ferrous Sulfate (Iron) 325 mg PO BID [facility] Stop: 06/29/17 16:59 Last Admin: 05/03/17 16:29 Dose: 325 mg Finasteride (Proscar) 5 mg PO DAILY [facility] PRN Reason: Protocol Stop: 06/29/17 12:59 Last Admin: 05/03/17 09:35 Dose: 5 mg Folic Acid (Folate) 1 mg PO DAILY [facility] Stop: 06/29/17 11:59 Last Admin: 05/03/17 09:34 Dose: 1 mg Heparin Sodium (Porcine) (Heparin Sodium) 10,000 units HD PRN PRN PRN Reason: Dialysis Stop: 07/01/17 10:44 Albumin Human (Albuminar 25%) 25 gm in 100 mls @ 50 mls/hr IV PRN PRN PRN Reason: BP Support During HD Cefepime HCl 1 gm/ Sodium (Chloride) 50 mls @ 100 mls/hr IV DAILY [facility] Stop: 07/04/17 08:59 Levetiracetam (Keppra) 500 mg PO BID [facility] Stop: 06/29/17 16:59 Last Admin: 05/03/17 16:29 Dose: 500 mg Lorazepam (Ativan) 1 mg IVP Q6HR PRN; Protocol PRN Reason: Seizure Stop: 06/29/17 16:51 Last Admin: 05/02/17 23:46 Dose: 1 mg Metoprolol Tartrate (Lopressor) 25 mg PO DAILY [facility] Stop: 06/30/17 08:59 Last Admin: 05/03/17 09:34 Dose: 25 mg Mirtazapine (Remeron) 15 mg PO HS [facility] PRN Reason: Protocol Stop: 06/29/17 20:59 Miscellaneous (Vancomycin Iv Per Pharmacy) 1 ea MC PRN PRN PRN Reason: PROTOCOL Stop: 07/02/17 23:58 Mupirocin (Bactroban Oint) 1 appl NS BID [facility] Stop: 05/05/17 17:01 Last Admin: 05/03/17 16:30 Dose: 1 appl Olanzapine (Zyprexa) 2.5 mg PO HS [facility] PRN Reason: Protocol Stop: 06/29/17 20:59 Pantoprazole Sodium (Protonix) 40 mg PO DAILY [facility] Stop: 06/30/17 08:59 Last Admin: 05/03/17 09:35 Dose: Not Given Tamsulosin HCl (Flomax) 0.4 mg PO BID [facility] Stop: 06/29/17 16:59 Last Admin: 05/03/17 16:29 Dose: 0.4 mg General: Alert, No acute distress HEENT: Atraumatic, EOMI, Mucous membr. moist/pink Neck: Supple, +2 carotid pulse wo bruit Cardiovascular: Regular rate, Normal S1, Normal S2 Lungs: Other (scattered rhonchi) Abdomen: Bowel sounds, Soft Extremities: no Edema Neurological: Sensation intact Skin: no Rash Psych/Mental Status: Mood NL - Procedures Procedures: Procedures Procedure Code Date INSERTION OF INFUSION DEV INTO SUP VENA CAVA, PERC APPROACH [id number] 01/16/17 PERFORMANCE OF URINARY FILTRATION, <6 HRS/DAY [id number] 01/16/17 ULTRASONOGRAPHY OF SUPERIOR VENA CAVA, GUIDANCE [id number] 01/16/17
[2017-05-04] MEDS: Aspirin 81mg Chewable Tab PO SCH (10:38)
[2017-05-04] MEDS: Ferrous Sulfate 325 MG TAB PO SCH ×2 (10:38→17:41)
[2017-05-04] MEDS: Pantoprazole 40 mg EC Tab PO SCH (10:40)
[2017-05-04 13:04] LABS: CHOLESTEROL 142 mg/dL (<200); HDL -HIGH DENSITY LIPOPROTEIN 42 mg/dL (23-92); TRIGLYCERIDES 132 mg/dL (<150)
[2017-05-04 13:10] LABS: URINE MICROSCOPIC INDICATED? YES; URINE SOURCE MIDSTREAM
[2017-05-04 13:14] LABS: URINE BILIRUBIN NEGATIVE (NEGATIVE); URINE BLOOD NEGATIVE (NEGATIVE); URINE CLARITY CLEAR (CLEAR); URINE COLOR YELLOW; URINE GLUCOSE (UA) NEGATIVE (NEGATIVE); URINE KETONE TRACE mg/dL (NEGATIVE); URINE LEUKOCYTE ESTERASE NEGATIVE (NEGATIVE); URINE NITRATE NEGATIVE (NEGATIVE); URINE PH 7.5 (4.6 - 8.0); URINE PROTEIN 100 mg/dL (NEGATIVE); URINE UROBILINOGEN 0.2 E.U./dL (0.2 - 1.0)
[2017-05-04 13:20] LABS: URINE EPITHELIAL CELLS FEW /lpf (FEW)
[2017-05-04 13:21] LABS: URINE BACTERIA OCCASIONAL /hpf (NONE SEEN); URINE RBC 0-2 /hpf (0-5)
--- NOTE | 2017-05-04 13:47 | General Progress Note ---
Subjective - Review of Systems Service Date: 05/04/17 Subjective: alert, verbal, eager to go home, comfortable Objective - Results Result Diagrams: 05/04/17 05:40 05/04/17 05:40 Recent Labs: Laboratory Last Values WBC 5.4 Th/cmm (4.8-10.8) 05/04/17 05:40 RBC 3.61 Mil/cmm (3.80-5.80) L 05/04/17 05:40 Hgb 11.0 gm/dL (12-16) L 05/04/17 05:40 Hct 32.4 % (41.0-60) L 05/04/17 05:40 MCV 89.7 fl (80-99) 05/04/17 05:40 MCH 30.3 pg (27.0-31.0) 05/04/17 05:40 MCHC Differential 33.8 pg (28.0-36.0) 05/04/17 05:40 RDW 13.1 % (11.5-20.0) 05/04/17 05:40 Plt Count 278 Th/cmm (150-400) 05/04/17 05:40 MPV 7.1 fl 05/04/17 05:40 Neutrophils % 70.1 % (40.0-80.0) 05/04/17 05:40 Lymphocytes % 18.6 % (20.0-50.0) L 05/04/17 05:40 Monocytes % 6.9 % (2.0-10.0) 05/04/17 05:40 Eosinophils % 4.3 % (0.0-5.0) 05/04/17 05:40 Basophils % 0.1 % (0.0-2.0) 05/04/17 05:40 PT 10.9 SECONDS (9.5-11.5) 04/29/17 17:55 INR 1.05 (0.5-1.4) 04/29/17 17:55 PTT (Actin FS) 25.8 SECONDS (26.0-38.0) L 04/29/17 17:55 Sodium 139 mEq/L (136-145) 05/04/17 05:40 Potassium 3.2 mEq/L (3.5-5.1) L 05/04/17 05:40 Chloride 104 mEq/L (98-107) 05/04/17 05:40 Carbon Dioxide 27.0 mEq/L (21.0-31.0) 05/04/17 05:40 Anion Gap 11.2 (7.0-16.0) 05/04/17 05:40 BUN 15 mg/dL (7-25) 05/04/17 05:40 Creatinine 5.0 mg/dL (0.7-1.3) H* 05/04/17 05:40 Est GFR ( Amer) TNP 05/04/17 05:40 Est GFR (Non-Af Amer) TNP 05/04/17 05:40 BUN/Creatinine Ratio 3.0 05/04/17 05:40 Glucose 87 mg/dL (70-105) 05/04/17 05:40 Whole Bld Lactic Acid 1.72 mmol/L (0.60-1.99) 04/29/17 17:55 Calcium 10.1 mg/dL (8.6-10.3) 05/04/17 05:40 Total Bilirubin 0.3 mg/dL (0.3-1.0) 05/04/17 05:40 AST 9 U/L (13-39) L 05/04/17 05:40 ALT 5 U/L (7-52) L 05/04/17 05:40 Alkaline Phosphatase 89 U/L (34-104) 05/04/17 05:40 Creatine Kinase 17 U/L (30-223) L 04/29/17 17:55 Troponin I 0.01 ng/mL (0.01-0.05) 04/29/17 17:55 Total Protein 6.8 gm/dL (6.0-8.3) 05/04/17 05:40 Albumin 3.2 gm/dL (4.2-5.5) L 05/04/17 05:40 Globulin 3.6 gm/dL 05/04/17 05:40 Albumin/Globulin Ratio 0.9 (1.0-1.8) L 05/04/17 05:40 Triglycerides 132 mg/dL (<150) 05/04/17 05:40 Cholesterol 142 mg/dL (<200) 05/04/17 05:40 LDL Cholesterol Direct 75 mg/dL (75-193) 05/04/17 05:40 HDL Cholesterol 42 mg/dL (23-92) 05/04/17 05:40 TSH 2.55 uIU/ml (0.34-5.60) 05/04/17 05:40 Urine Source MIDSTREAM 05/04/17 11:20 Urine Color YELLOW 05/04/17 11:20 Urine Clarity CLEAR (CLEAR) 05/04/17 11:20 Urine pH 7.5 (4.6 - 8.0) 05/04/17 11:20 Ur Specific [place] 1.015 (1.005-1.030) 05/04/17 11:20 Urine Protein 100 mg/dL (NEGATIVE) H 05/04/17 11:20 Urine Glucose (UA) NEGATIVE mg/dL (NEGATIVE) 05/04/17 11:20 Urine Ketones TRACE mg/dL (NEGATIVE) 05/04/17 11:20 Urine Blood NEGATIVE (NEGATIVE) 05/04/17 11:20 Urine Nitrate NEGATIVE (NEGATIVE) 05/04/17 11:20 Urine Bilirubin NEGATIVE (NEGATIVE) 05/04/17 11:20 Urine Urobilinogen 0.2 E.U./dL (0.2 - 1.0) 05/04/17 11:20 Ur Leukocyte Esterase NEGATIVE (NEGATIVE) 05/04/17 11:20 Urine RBC 0-2 /hpf (0-5) H 05/04/17 11:20 Urine WBC 2-5 /hpf (0-5) 05/04/17 11:20 Ur Epithelial Cells FEW /lpf (FEW) 05/04/17 11:20 Urine Bacteria OCCASIONAL /hpf (NONE SEEN) 05/04/17 11:20 - Physical Exam Vitals and I&O: Vital Signs Temp 97.8 F 05/04/17 11:40 Pulse 120 05/04/17 11:40 Resp 17 05/04/17 11:40 BP 83/53 05/04/17 11:40 Pulse Ox 98 05/04/17 11:40 Intake & Output 05/03/17 05/04/17 05/04/17 18:59 06:59 18:59 Intake Total 400 250 Balance 400 250 Weight (lbs) 72.62 kg 74.253 kg Intake: Oral 400 250 Other: # Voids 2 3 # Bowel Movements 0 1 Stool Characteristics Soft Active Medications: Current Medications Albuterol Sulfate (Albuterol 2.5mg/3ml Neb Ud) 2.5 mg HHN Q8HRT [facility] Stop: 06/29/17 22:59 Last Admin: 05/04/17 07:23 Dose: 2.5 mg Aspirin (Aspirin Chewable) 81 mg PO DAILY [facility] Stop: 06/29/17 12:59 Last Admin: 05/04/17 10:38 Dose: 81 mg Atorvastatin Calcium (Lipitor) 10 mg PO HS [facility] PRN Reason: Protocol Stop: 06/29/17 20:59 Last Admin: 05/03/17 21:50 Dose: 10 mg Citalopram Hydrobromide (Celexa) 20 mg PO DAILY [facility] PRN Reason: Protocol Stop: 06/30/17 08:59 Donepezil HCl (Aricept) 5 mg PO DAILY [facility] Stop: 06/30/17 12:59 Last Admin: 05/04/17 10:39 Dose: 5 mg Ferrous Sulfate (Iron) 325 mg PO BID [facility] Stop: 06/29/17 16:59 Last Admin: 05/04/17 10:38 Dose: 325 mg Finasteride (Proscar) 5 mg PO DAILY [facility] PRN Reason: Protocol Stop: 06/29/17 12:59 Last Admin: 05/04/17 10:39 Dose: 5 mg Folic Acid (Folate) 1 mg PO DAILY [facility] Stop: 06/29/17 11:59 Last Admin: 05/04/17 10:40 Dose: 1 mg Heparin Sodium (Porcine) (Heparin Sodium) 10,000 units HD PRN PRN PRN Reason: Dialysis Stop: 07/01/17 10:44 Last Admin: 05/04/17 10:34 Dose: 10,000 units Cefepime HCl 1 gm/ Sodium (Chloride) 50 mls @ 100 mls/hr IV DAILY [facility] Stop: 07/04/17 08:59 Levetiracetam (Keppra) 500 mg PO BID [facility] Stop: 06/29/17 16:59 Last Admin: 05/04/17 10:40 Dose: 500 mg Lorazepam (Ativan) 1 mg IVP Q6HR PRN; Protocol PRN Reason: Seizure Stop: 06/29/17 16:51 Last Admin: 05/02/17 23:46 Dose: 1 mg Metoprolol Tartrate (Lopressor) 25 mg PO DAILY [facility] Stop: 06/30/17 08:59 Last Admin: 05/04/17 10:27 Dose: Not Given Mirtazapine (Remeron) 15 mg PO HS [facility] PRN Reason: Protocol Stop: 06/29/17 20:59 Miscellaneous (Vancomycin Iv Per Pharmacy) 1 ea MC PRN PRN PRN Reason: PROTOCOL Stop: 07/02/17 23:58 Mupirocin (Bactroban Oint) 1 appl NS BID [facility] Stop: 05/05/17 17:01 Last Admin: 05/04/17 10:40 Dose: 1 appl Olanzapine (Zyprexa) 2.5 mg PO HS [facility] PRN Reason: Protocol Stop: 06/29/17 20:59 Pantoprazole Sodium (Protonix) 40 mg PO DAILY [facility] Stop: 06/30/17 08:59 Last Admin: 05/04/17 10:40 Dose: 40 mg Potassium Chloride (Klor-Con) 20 meq PO X1 ONE Stop: 05/04/17 13:45 Tamsulosin HCl (Flomax) 0.4 mg PO BID [facility] Stop: 06/29/17 16:59 Last Admin: 05/04/17 10:26 Dose: Not Given General: Alert, No acute distress HEENT: Atraumatic, EOMI, Mucous membr. moist/pink Neck: Supple, +2 carotid pulse wo bruit Cardiovascular: Regular rate, Normal S1, Normal S2 Lungs: Other (scattered rhonchi) Abdomen: Bowel sounds, Soft Extremities: no Edema Neurological: Sensation intact Skin: no Rash Psych/Mental Status: Mood NL - Procedures Procedures: Procedures Procedure Code Date INSERTION OF INFUSION DEV INTO SUP VENA CAVA, PERC APPROACH [id number] 01/16/17 PERFORMANCE OF URINARY FILTRATION, <6 HRS/DAY [id number] 01/16/17 ULTRASONOGRAPHY OF SUPERIOR VENA CAVA, GUIDANCE [id number] 01/16/17 Assessment/Plan - Assessment Assessment: ESRD on HD Acute tracheobronchitis Ess Htn Dyslipidemia Alzh Dementia - Plan Plan: Current Medications Albumin Human (Albuminar 25%) 25 gm IV PRN PRN PRN Reason: BP SUPPORT DURING HD Stop: 06/29/17 18:14 Albuterol Sulfate (Albuterol 2.5mg/3ml Neb Ud) 2.5 mg HHN Q8HRT [facility] Stop: 06/29/17 22:59 Last Admin: 05/01/17 15:33 Dose: 2.5 mg Aspirin (Aspirin Chewable) 81 mg PO DAILY [facility] Stop: 06/29/17 12:59 Last Admin: 05/01/17 09:30 Dose: 81 mg Atorvastatin Calcium (Lipitor) 10 mg PO HS [facility] PRN Reason: Protocol Stop: 06/29/17 20:59 Last Admin: 04/30/17 21:19 Dose: 10 mg Citalopram Hydrobromide (Celexa) 20 mg PO DAILY [facility] PRN Reason: Protocol Stop: 06/30/17 08:59 Donepezil HCl (Aricept) 5 mg PO DAILY [facility] Stop: 06/30/17 12:59 Last Admin: 05/01/17 12:09 Dose: 5 mg Ferrous Sulfate (Iron) 325 mg PO DAILY [facility] Stop: 06/30/17 12:59 Last Admin: 05/01/17 12:09 Dose: 325 mg Ferrous Sulfate (Iron) 325 mg PO BID [facility] Stop: 06/29/17 16:59 Finasteride (Proscar) 5 mg PO DAILY [facility] PRN Reason: Protocol Stop: 06/29/17 12:59 Last Admin: 05/01/17 09:31 Dose: 5 mg Folic Acid (Folate) 1 mg PO DAILY [facility] Stop: 06/29/17 11:59 Last Admin: 05/01/17 09:30 Dose: 1 mg Heparin Sodium (Porcine) (Heparin) 5,000 units HD PRN PRN PRN Reason: DIALYSIS PORTS Stop: 06/29/17 16:51 Azithromycin 500 mg/ Sodium (Chloride) 250 mls @ 250 mls/hr IV Q24HR [facility] Stop: 06/29/17 20:59 Last Admin: 04/30/17 21:18 Dose: 250 mls/hr Ceftriaxone Sodium 1 gm/ (Sodium Chloride) 50 mls @ 100 mls/hr IV Q24HR [facility] Stop: 06/29/17 20:59 Last Admin: 04/30/17 21:19 Dose: 100 mls/hr Levetiracetam (Keppra) 500 mg PO BID [facility] Stop: 06/29/17 16:59 Last Admin: 05/01/17 09:30 Dose: 500 mg Lorazepam (Ativan) 1 mg IVP Q6HR PRN; Protocol PRN Reason: Seizure Stop: 06/29/17 16:51 Metoprolol Tartrate (Lopressor) 25 mg PO DAILY [facility] Stop: 06/30/17 08:59 Last Admin: 05/01/17 09:30 Dose: 25 mg Mirtazapine (Remeron) 15 mg PO HS [facility] PRN Reason: Protocol Stop: 06/29/17 20:59 Mupirocin (Bactroban Oint) 1 appl NS BID [facility] Stop: 05/05/17 17:01 Last Admin: 05/01/17 09:32 Dose: 1 appl Olanzapine (Zyprexa) 2.5 mg PO HS [facility] PRN Reason: Protocol Stop: 06/29/17 20:59 Pantoprazole Sodium (Protonix) 40 mg PO DAILY [facility] Stop: 06/29/17 12:59 Last Admin: 05/01/17 09:31 Dose: 40 mg Pantoprazole Sodium (Protonix) 40 mg PO DAILY [facility] Stop: 06/30/17 08:59 Last Admin: 05/01/17 09:32 Dose: Not Given Tamsulosin HCl (Flomax) 0.4 mg PO DAILY [facility] Stop: 06/29/17 11:59 Last Admin: 05/01/17 09:30 Dose: 0.4 mg Tamsulosin HCl (Flomax) 0.4 mg PO BID [facility] Stop: 06/29/17 16:59 Lab - Result Diagrams 05/04/17 05:40 05/04/17 05:40 schedule for HD today continue ABx f/u cultures replace K
--- NOTE | 2017-05-04 14:26 | Infectious Disease Prog Note ---
Infectious Disease Subjective - Review of Systems Service Date: 05/04/17 Subjective: There is no new change. Infectious Disease Objective - Results Result Diagrams: 05/04/17 05:40 05/04/17 05:40 Recent Labs: Laboratory Last Values WBC 5.4 Th/cmm (4.8-10.8) 05/04/17 05:40 RBC 3.61 Mil/cmm (3.80-5.80) L 05/04/17 05:40 Hgb 11.0 gm/dL (12-16) L 05/04/17 05:40 Hct 32.4 % (41.0-60) L 05/04/17 05:40 MCV 89.7 fl (80-99) 05/04/17 05:40 MCH 30.3 pg (27.0-31.0) 05/04/17 05:40 MCHC Differential 33.8 pg (28.0-36.0) 05/04/17 05:40 RDW 13.1 % (11.5-20.0) 05/04/17 05:40 Plt Count 278 Th/cmm (150-400) 05/04/17 05:40 MPV 7.1 fl 05/04/17 05:40 Neutrophils % 70.1 % (40.0-80.0) 05/04/17 05:40 Lymphocytes % 18.6 % (20.0-50.0) L 05/04/17 05:40 Monocytes % 6.9 % (2.0-10.0) 05/04/17 05:40 Eosinophils % 4.3 % (0.0-5.0) 05/04/17 05:40 Basophils % 0.1 % (0.0-2.0) 05/04/17 05:40 PT 10.9 SECONDS (9.5-11.5) 04/29/17 17:55 INR 1.05 (0.5-1.4) 04/29/17 17:55 PTT (Actin FS) 25.8 SECONDS (26.0-38.0) L 04/29/17 17:55 Sodium 139 mEq/L (136-145) 05/04/17 05:40 Potassium 3.2 mEq/L (3.5-5.1) L 05/04/17 05:40 Chloride 104 mEq/L (98-107) 05/04/17 05:40 Carbon Dioxide 27.0 mEq/L (21.0-31.0) 05/04/17 05:40 Anion Gap 11.2 (7.0-16.0) 05/04/17 05:40 BUN 15 mg/dL (7-25) 05/04/17 05:40 Creatinine 5.0 mg/dL (0.7-1.3) H* 05/04/17 05:40 Est GFR ( Amer) TNP 05/04/17 05:40 Est GFR (Non-Af Amer) TNP 05/04/17 05:40 BUN/Creatinine Ratio 3.0 05/04/17 05:40 Glucose 87 mg/dL (70-105) 05/04/17 05:40 Whole Bld Lactic Acid 1.72 mmol/L (0.60-1.99) 04/29/17 17:55 Calcium 10.1 mg/dL (8.6-10.3) 05/04/17 05:40 Total Bilirubin 0.3 mg/dL (0.3-1.0) 05/04/17 05:40 AST 9 U/L (13-39) L 05/04/17 05:40 ALT 5 U/L (7-52) L 05/04/17 05:40 Alkaline Phosphatase 89 U/L (34-104) 05/04/17 05:40 Creatine Kinase 17 U/L (30-223) L 04/29/17 17:55 Troponin I 0.01 ng/mL (0.01-0.05) 04/29/17 17:55 Total Protein 6.8 gm/dL (6.0-8.3) 05/04/17 05:40 Albumin 3.2 gm/dL (4.2-5.5) L 05/04/17 05:40 Globulin 3.6 gm/dL 05/04/17 05:40 Albumin/Globulin Ratio 0.9 (1.0-1.8) L 05/04/17 05:40 Triglycerides 132 mg/dL (<150) 05/04/17 05:40 Cholesterol 142 mg/dL (<200) 05/04/17 05:40 LDL Cholesterol Direct 75 mg/dL (75-193) 05/04/17 05:40 HDL Cholesterol 42 mg/dL (23-92) 03/12/18 05:40 TSH 2.55 uIU/ml (0.34-5.60) 05/04/17 05:40 Urine Source MIDSTREAM 05/04/17 11:20 Urine Color YELLOW 05/04/17 11:20 Urine Clarity CLEAR (CLEAR) 05/04/17 11:20 Urine pH 7.5 (4.6 - 8.0) 05/04/17 11:20 Ur Specific [place] 1.015 (1.005-1.030) 05/04/17 11:20 Urine Protein 100 mg/dL (NEGATIVE) H 05/04/17 11:20 Urine Glucose (UA) NEGATIVE mg/dL (NEGATIVE) 05/04/17 11:20 Urine Ketones TRACE mg/dL (NEGATIVE) 05/04/17 11:20 Urine Blood NEGATIVE (NEGATIVE) 05/04/17 11:20 Urine Nitrate NEGATIVE (NEGATIVE) 05/04/17 11:20 Urine Bilirubin NEGATIVE (NEGATIVE) 05/04/17 11:20 Urine Urobilinogen 0.2 E.U./dL (0.2 - 1.0) 05/04/17 11:20 Ur Leukocyte Esterase NEGATIVE (NEGATIVE) 05/04/17 11:20 Urine RBC 0-2 /hpf (0-5) H 05/04/17 11:20 Urine WBC 2-5 /hpf (0-5) 05/04/17 11:20 Ur Epithelial Cells FEW /lpf (FEW) 05/04/17 11:20 Urine Bacteria OCCASIONAL /hpf (NONE SEEN) 05/04/17 11:20 - Physical Exam Vitals and I&O: Vital Signs Temp 97.8 F 05/04/17 11:40 Pulse 120 05/04/17 11:40 Resp 17 05/04/17 11:40 BP 83/53 05/04/17 11:40 Pulse Ox 98 05/04/17 11:40 Intake & Output 05/03/17 05/04/17 05/04/17 18:59 06:59 18:59 Intake Total 400 250 Balance 400 250 Weight (lbs) 72.62 kg 74.253 kg Intake: Oral 400 250 Other: # Voids 2 3 # Bowel Movements 0 1 Stool Characteristics Soft Active Medications: Current Medications Albuterol Sulfate (Albuterol 2.5mg/3ml Neb Ud) 2.5 mg HHN Q8HRT [facility] Stop: 06/29/17 22:59 Last Admin: 05/04/17 07:23 Dose: 2.5 mg Aspirin (Aspirin Chewable) 81 mg PO DAILY [facility] Stop: 06/29/17 12:59 Last Admin: 05/04/17 10:38 Dose: 81 mg Atorvastatin Calcium (Lipitor) 10 mg PO HS [facility] PRN Reason: Protocol Stop: 06/29/17 20:59 Last Admin: 05/03/17 21:50 Dose: 10 mg Citalopram Hydrobromide (Celexa) 20 mg PO DAILY [facility] PRN Reason: Protocol Stop: 06/30/17 08:59 Donepezil HCl (Aricept) 5 mg PO DAILY [facility] Stop: 06/30/17 12:59 Last Admin: 05/04/17 10:39 Dose: 5 mg Ferrous Sulfate (Iron) 325 mg PO BID [facility] Stop: 06/29/17 16:59 Last Admin: 05/04/17 10:38 Dose: 325 mg Finasteride (Proscar) 5 mg PO DAILY [facility] PRN Reason: Protocol Stop: 06/29/17 12:59 Last Admin: 05/04/17 10:39 Dose: 5 mg Folic Acid (Folate) 1 mg PO DAILY [facility] Stop: 06/29/17 11:59 Last Admin: 05/04/17 10:40 Dose: 1 mg Heparin Sodium (Porcine) (Heparin Sodium) 10,000 units HD PRN PRN PRN Reason: Dialysis Stop: 07/01/17 10:44 Last Admin: 05/04/17 10:34 Dose: 10,000 units Cefepime HCl 1 gm/ Sodium (Chloride) 50 mls @ 100 mls/hr IV DAILY [facility] Stop: 07/04/17 08:59 Levetiracetam (Keppra) 500 mg PO BID [facility] Stop: 06/29/17 16:59 Last Admin: 05/04/17 10:40 Dose: 500 mg Lorazepam (Ativan) 1 mg IVP Q6HR PRN; Protocol PRN Reason: Seizure Stop: 06/29/17 16:51 Last Admin: 05/02/17 23:46 Dose: 1 mg Metoprolol Tartrate (Lopressor) 25 mg PO DAILY [facility] Stop: 06/30/17 08:59 Last Admin: 05/04/17 10:27 Dose: Not Given Mirtazapine (Remeron) 15 mg PO HS [facility] PRN Reason: Protocol Stop: 06/29/17 20:59 Miscellaneous (Vancomycin Iv Per Pharmacy) 1 ea MC PRN PRN PRN Reason: PROTOCOL Stop: 07/02/17 23:58 Mupirocin (Bactroban Oint) 1 appl NS BID [facility] Stop: 05/05/17 17:01 Last Admin: 05/04/17 10:40 Dose: 1 appl Olanzapine (Zyprexa) 2.5 mg PO HS [facility] PRN Reason: Protocol Stop: 06/29/17 20:59 Pantoprazole Sodium (Protonix) 40 mg PO DAILY [facility] Stop: 06/30/17 08:59 Last Admin: 05/04/17 10:40 Dose: 40 mg Potassium Chloride (Klor-Con) 20 meq PO X1 ONE Stop: 05/04/17 13:45 Tamsulosin HCl (Flomax) 0.4 mg PO BID [facility] Stop: 06/29/17 16:59 Last Admin: 05/04/17 10:26 Dose: Not Given General: no acute distress, well developed, well nourished HEENT: atraumatic, normocephalic, PERRLA, EOMI Neck: supple, no thyromegaly, no lymphadenopathy Cardiovascular: S1S2, regular Lungs: clear to auscultation bilaterally, clear to percussion Abdomen: soft, no tender, no distended, no mass Extremities: no cyanosis, no clubbing, no edema Neurological: awake, alert, oriented Skin: intact, other (there is redness arounf the perma cath site.) - Procedures Procedures: Procedures Procedure Code Date INSERTION OF INFUSION DEV INTO SUP VENA CAVA, PERC APPROACH [id number] 01/16/17 PERFORMANCE OF URINARY FILTRATION, <6 HRS/DAY [id number] 01/16/17 ULTRASONOGRAPHY OF SUPERIOR VENA CAVA, GUIDANCE [id number] 01/16/17 Infectious Disease Assmt/Plan - Assessment Assessment: 1. Left lower lobe pneumonia. 2. Possible line infection, although the blood cultures are negative. There is no discharge at this time. 3. 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 4. Hypertension. 5. Dementia and Parkinson disease. 6. MRSA Colonization. 7. Chest wall cellulitis - Plan Plan: RECOMMENDATIONS: Continue cefepime and vanco IV. May consider changing the perma cath if there is no improvement after 10 days from now. May change antibiotics to vanco and gentamicin during HD, and change antibiotic depending on the wound culture report.
[2017-05-04] MEDS ORDERED: Potassium Chloride 20 mEq ER Tab PO ONE (16:30)
[2017-05-04] MEDS: Atorvastatin Calcium 10 MG TAB PO SCH (20:59)
[2017-05-05 07:06] LABS: ANION GAP 11.7 (7.0-16.0); BUN - UREA NITROGEN 8 mg/dL (7-25); CARBON DIOXIDE 26.5 mEq/L (21.0-31.0); CHLORIDE 102 mEq/L (98-107); CREATININE - SERUM 3.9 mg/dL (0.7-1.3); GLUCOSE 84 mg/dL (70-105); MAGNESIUM 1.7 mg/dL (1.9-2.7); POTASSIUM SERUM 3.2 mEq/L (3.5-5.1); SODIUM SERUM 137 mEq/L (136-145)
[2017-05-05] MEDS: Albuterol Nebulizer 2.5mg/3mL HHN SCH ×2 (07:13→14:34)
[2017-05-05] MEDS ORDERED: Cefepime 1 GM in Sodium Chloride 0.9% 50 ML IV SCH (09:00)
[2017-05-05] MEDS: Ferrous Sulfate 325 MG TAB PO SCH ×5 (10:08→17:06)
[2017-05-05] MEDS: Aspirin 81mg Chewable Tab PO SCH (10:09)
[2017-05-05] MEDS: Pantoprazole 40 mg EC Tab PO SCH (10:09)
--- NOTE | 2017-05-05 13:26 | General Progress Note ---
Subjective - Review of Systems Service Date: 05/05/17 Subjective: alert, verbal, eager to go home, comfortable Objective - Results Result Diagrams: 05/04/17 05:40 05/05/17 06:25 Recent Labs: Laboratory Last Values WBC 5.4 Th/cmm (4.8-10.8) 05/04/17 05:40 RBC 3.61 Mil/cmm (3.80-5.80) L 05/04/17 05:40 Hgb 11.0 gm/dL (12-16) L 05/04/17 05:40 Hct 32.4 % (41.0-60) L 05/04/17 05:40 MCV 89.7 fl (80-99) 05/04/17 05:40 MCH 30.3 pg (27.0-31.0) 05/04/17 05:40 MCHC Differential 33.8 pg (28.0-36.0) 05/04/17 05:40 RDW 13.1 % (11.5-20.0) 05/04/17 05:40 Plt Count 278 Th/cmm (150-400) 05/04/17 05:40 MPV 7.1 fl 05/04/17 05:40 Neutrophils % 70.1 % (40.0-80.0) 05/04/17 05:40 Lymphocytes % 18.6 % (20.0-50.0) L 05/04/17 05:40 Monocytes % 6.9 % (2.0-10.0) 05/04/17 05:40 Eosinophils % 4.3 % (0.0-5.0) 05/04/17 05:40 Basophils % 0.1 % (0.0-2.0) 05/04/17 05:40 PT 10.9 SECONDS (9.5-11.5) 04/29/17 17:55 INR 1.05 (0.5-1.4) 04/29/17 17:55 PTT (Actin FS) 25.8 SECONDS (26.0-38.0) L 04/29/17 17:55 Sodium 137 mEq/L (136-145) 05/05/17 06:25 Potassium 3.2 mEq/L (3.5-5.1) L 05/05/17 06:25 Chloride 102 mEq/L (98-107) 05/05/17 06:25 Carbon Dioxide 26.5 mEq/L (21.0-31.0) 05/05/17 06:25 Anion Gap 11.7 (7.0-16.0) 05/05/17 06:25 BUN 8 mg/dL (7-25) 05/05/17 06:25 Creatinine 3.9 mg/dL (0.7-1.3) H 05/05/17 06:25 Est GFR ( Amer) TNP 05/05/17 06:25 Est GFR (Non-Af Amer) TNP 05/05/17 06:25 BUN/Creatinine Ratio 2.1 05/05/17 06:25 Glucose 84 mg/dL (70-105) 05/05/17 06:25 Whole Bld Lactic Acid 1.72 mmol/L (0.60-1.99) 04/29/17 17:55 Calcium 10.0 mg/dL (8.6-10.3) 05/05/17 06:25 Magnesium 1.7 mg/dL (1.9-2.7) L 05/05/17 06:25 Total Bilirubin 0.3 mg/dL (0.3-1.0) 05/04/17 05:40 AST 9 U/L (13-39) L 05/04/17 05:40 ALT 5 U/L (7-52) L 05/04/17 05:40 Alkaline Phosphatase 89 U/L (34-104) 05/04/17 05:40 Creatine Kinase 17 U/L (30-223) L 04/29/17 17:55 Troponin I 0.01 ng/mL (0.01-0.05) 04/29/17 17:55 Total Protein 6.8 gm/dL (6.0-8.3) 05/04/17 05:40 Albumin 3.2 gm/dL (4.2-5.5) L 05/04/17 05:40 Globulin 3.6 gm/dL 05/04/17 05:40 Albumin/Globulin Ratio 0.9 (1.0-1.8) L 05/04/17 05:40 Triglycerides 132 mg/dL (<150) 05/04/17 05:40 Cholesterol 142 mg/dL (<200) 05/04/17 05:40 LDL Cholesterol Direct 75 mg/dL (75-193) 05/04/17 05:40 HDL Cholesterol 42 mg/dL (23-92) 05/04/17 05:40 TSH 2.55 uIU/ml (0.34-5.60) 05/04/17 05:40 Urine Source MIDSTREAM 05/04/17 11:20 Urine Color YELLOW 05/04/17 11:20 Urine Clarity CLEAR (CLEAR) 05/04/17 11:20 Urine pH 7.5 (4.6 - 8.0) 05/04/17 11:20 Ur Specific [place] 1.015 (1.005-1.030) 05/04/17 11:20 Urine Protein 100 mg/dL (NEGATIVE) H 05/04/17 11:20 Urine Glucose (UA) NEGATIVE mg/dL (NEGATIVE) 05/04/17 11:20 Urine Ketones TRACE mg/dL (NEGATIVE) 05/04/17 11:20 Urine Blood NEGATIVE (NEGATIVE) 05/04/17 11:20 Urine Nitrate NEGATIVE (NEGATIVE) 05/04/17 11:20 Urine Bilirubin NEGATIVE (NEGATIVE) 05/04/17 11:20 Urine Urobilinogen 0.2 E.U./dL (0.2 - 1.0) 05/04/17 11:20 Ur Leukocyte Esterase NEGATIVE (NEGATIVE) 05/04/17 11:20 Urine RBC 0-2 /hpf (0-5) H 05/04/17 11:20 Urine WBC 2-5 /hpf (0-5) 05/04/17 11:20 Ur Epithelial Cells FEW /lpf (FEW) 05/04/17 11:20 Urine Bacteria OCCASIONAL /hpf (NONE SEEN) 05/04/17 11:20 - Physical Exam Vitals and I&O: Vital Signs Temp 97.7 F 05/05/17 03:00 Pulse 90 05/05/17 10:22 Resp 18 05/05/17 07:13 BP 130/80 05/05/17 10:22 Pulse Ox 95 05/05/17 07:13 Intake & Output 05/04/17 05/05/17 05/05/17 18:59 06:59 18:59 Intake Total 400 240 Output Total 1500 Balance -1100 240 Weight (lbs) 73.936 kg 73.936 kg Intake: Oral 400 240 Output: Hemodialysis 1500 Other: # Voids 3 Stool Characteristics Soft Soft Active Medications: Current Medications Albuterol Sulfate (Albuterol 2.5mg/3ml Neb Ud) 2.5 mg HHN Q8HRT [facility] Stop: 06/29/17 22:59 Last Admin: 05/05/17 07:13 Dose: 2.5 mg Aspirin (Aspirin Chewable) 81 mg PO DAILY [facility] Stop: 06/29/17 12:59 Last Admin: 05/05/17 10:09 Dose: 81 mg Atorvastatin Calcium (Lipitor) 10 mg PO HS [facility] PRN Reason: Protocol Stop: 06/29/17 20:59 Last Admin: 05/04/17 20:59 Dose: 10 mg Citalopram Hydrobromide (Celexa) 20 mg PO DAILY [facility] PRN Reason: Protocol Stop: 06/30/17 08:59 Donepezil HCl (Aricept) 5 mg PO DAILY [facility] Stop: 06/30/17 12:59 Last Admin: 05/05/17 10:09 Dose: 5 mg Ferrous Sulfate (Iron) 325 mg PO BID [facility] Stop: 06/29/17 16:59 Last Admin: 05/05/17 10:13 Dose: 325 mg Finasteride (Proscar) 5 mg PO DAILY [facility] PRN Reason: Protocol Stop: 06/29/17 12:59 Last Admin: 05/05/17 10:13 Dose: 5 mg Folic Acid (Folate) 1 mg PO DAILY [facility] Stop: 06/29/17 11:59 Last Admin: 05/05/17 10:08 Dose: 1 mg Heparin Sodium (Porcine) (Heparin Sodium) 10,000 units HD PRN PRN PRN Reason: Dialysis Stop: 07/01/17 10:44 Last Admin: 05/04/17 10:34 Dose: 10,000 units Cefepime HCl 1 gm/ Sodium (Chloride) 50 mls @ 100 mls/hr IV DAILY [facility] Stop: 07/04/17 08:59 Last Admin: 05/05/17 10:28 Dose: 100 mls/hr Levetiracetam (Keppra) 500 mg PO BID [facility] Stop: 06/29/17 16:59 Last Admin: 05/05/17 10:08 Dose: 500 mg Lorazepam (Ativan) 1 mg IVP Q6HR PRN; Protocol PRN Reason: Seizure Stop: 06/29/17 16:51 Last Admin: 05/02/17 23:46 Dose: 1 mg Metoprolol Tartrate (Lopressor) 25 mg PO DAILY [facility] Stop: 06/30/17 08:59 Last Admin: 05/05/17 10:22 Dose: 25 mg Mirtazapine (Remeron) 15 mg PO HS [facility] PRN Reason: Protocol Stop: 06/29/17 20:59 Miscellaneous (Vancomycin Iv Per Pharmacy) 1 ea MC PRN PRN PRN Reason: PROTOCOL Stop: 07/02/17 23:58 Mupirocin (Bactroban Oint) 1 appl NS BID [facility] Stop: 05/05/17 17:01 Last Admin: 05/05/17 10:10 Dose: 1 appl Olanzapine (Zyprexa) 2.5 mg PO HS [facility] PRN Reason: Protocol Stop: 06/29/17 20:59 Pantoprazole Sodium (Protonix) 40 mg PO DAILY [facility] Stop: 06/30/17 08:59 Last Admin: 05/05/17 10:09 Dose: 40 mg Tamsulosin HCl (Flomax) 0.4 mg PO BID [facility] Stop: 06/29/17 16:59 Last Admin: 05/05/17 10:12 Dose: 0.4 mg General: Alert, No acute distress HEENT: Atraumatic, EOMI, Mucous membr. moist/pink Neck: Supple, +2 carotid pulse wo bruit Cardiovascular: Regular rate, Normal S1, Normal S2 Lungs: Other (scattered rhonchi) Abdomen: Bowel sounds, Soft Extremities: no Edema Neurological: Sensation intact Skin: no Rash Psych/Mental Status: Mood NL - Procedures Procedures: Procedures Procedure Code Date INSERTION OF INFUSION DEV INTO SUP VENA CAVA, PERC APPROACH [id number] 01/16/17 PERFORMANCE OF URINARY FILTRATION, <6 HRS/DAY [id number] 01/16/17 ULTRASONOGRAPHY OF SUPERIOR VENA CAVA, GUIDANCE [id number] 01/16/17 Assessment/Plan - Assessment Assessment: ESRD on HD Acute tracheobronchitis Ess Htn Dyslipidemia Alzh Dementia - Plan Plan: Current Medications Albumin Human (Albuminar 25%) 25 gm IV PRN PRN PRN Reason: BP SUPPORT DURING HD Stop: 06/29/17 18:14 Albuterol Sulfate (Albuterol 2.5mg/3ml Neb Ud) 2.5 mg HHN Q8HRT [facility] Stop: 06/29/17 22:59 Last Admin: 05/01/17 15:33 Dose: 2.5 mg Aspirin (Aspirin Chewable) 81 mg PO DAILY [facility] Stop: 06/29/17 12:59 Last Admin: 05/01/17 09:30 Dose: 81 mg Atorvastatin Calcium (Lipitor) 10 mg PO HS [facility] PRN Reason: Protocol Stop: 06/29/17 20:59 Last Admin: 04/30/17 21:19 Dose: 10 mg Citalopram Hydrobromide (Celexa) 20 mg PO DAILY [facility] PRN Reason: Protocol Stop: 06/30/17 08:59 Donepezil HCl (Aricept) 5 mg PO DAILY [facility] Stop: 06/30/17 12:59 Last Admin: 05/01/17 12:09 Dose: 5 mg Ferrous Sulfate (Iron) 325 mg PO DAILY [facility] Stop: 06/30/17 12:59 Last Admin: 05/01/17 12:09 Dose: 325 mg Ferrous Sulfate (Iron) 325 mg PO BID [facility] Stop: 06/29/17 16:59 Finasteride (Proscar) 5 mg PO DAILY [facility] PRN Reason: Protocol Stop: 06/29/17 12:59 Last Admin: 05/01/17 09:31 Dose: 5 mg Folic Acid (Folate) 1 mg PO DAILY [facility] Stop: 06/29/17 11:59 Last Admin: 05/01/17 09:30 Dose: 1 mg Heparin Sodium (Porcine) (Heparin) 5,000 units HD PRN PRN PRN Reason: DIALYSIS PORTS Stop: 06/29/17 16:51 Azithromycin 500 mg/ Sodium (Chloride) 250 mls @ 250 mls/hr IV Q24HR [facility] Stop: 06/29/17 20:59 Last Admin: 04/30/17 21:18 Dose: 250 mls/hr Ceftriaxone Sodium 1 gm/ (Sodium Chloride) 50 mls @ 100 mls/hr IV Q24HR [facility] Stop: 06/29/17 20:59 Last Admin: 04/30/17 21:19 Dose: 100 mls/hr Levetiracetam (Keppra) 500 mg PO BID [facility] Stop: 06/29/17 16:59 Last Admin: 05/01/17 09:30 Dose: 500 mg Lorazepam (Ativan) 1 mg IVP Q6HR PRN; Protocol PRN Reason: Seizure Stop: 06/29/17 16:51 Metoprolol Tartrate (Lopressor) 25 mg PO DAILY [facility] Stop: 06/30/17 08:59 Last Admin: 05/01/17 09:30 Dose: 25 mg Mirtazapine (Remeron) 15 mg PO HS [facility] PRN Reason: Protocol Stop: 06/29/17 20:59 Mupirocin (Bactroban Oint) 1 appl NS BID [facility] Stop: 05/05/17 17:01 Last Admin: 05/01/17 09:32 Dose: 1 appl Olanzapine (Zyprexa) 2.5 mg PO HS [facility] PRN Reason: Protocol Stop: 06/29/17 20:59 Pantoprazole Sodium (Protonix) 40 mg PO DAILY [facility] Stop: 06/29/17 12:59 Last Admin: 05/01/17 09:31 Dose: 40 mg Pantoprazole Sodium (Protonix) 40 mg PO DAILY [facility] Stop: 06/30/17 08:59 Last Admin: 05/01/17 09:32 Dose: Not Given Tamsulosin HCl (Flomax) 0.4 mg PO DAILY [facility] Stop: 06/29/17 11:59 Last Admin: 05/01/17 09:30 Dose: 0.4 mg Tamsulosin HCl (Flomax) 0.4 mg PO BID [facility] Stop: 06/29/17 16:59 Lab - Result Diagrams 05/04/17 05:40 05/05/17 06:25 schedule for HD tomorrow continue ABx f/u cultures replace K
[2017-05-05] MEDS ORDERED: Potassium Chloride 20 mEq ER Tab PO ONE (13:29)
--- NOTE | 2017-05-05 16:01 | Internal Medicine Prog Note ---
Internal Medicine Subjective - Subjective Service Date: 05/05/17 Patient seen and examined:: with staff Patient is:: awake Per staff patient has:: tolerating meds Internal Medicine Objective - Results Result Diagrams: 05/04/17 05:40 05/05/17 06:25 Recent Labs: Laboratory Last Values WBC 5.4 Th/cmm (4.8-10.8) 05/04/17 05:40 RBC 3.61 Mil/cmm (3.80-5.80) L 05/04/17 05:40 Hgb 11.0 gm/dL (12-16) L 05/04/17 05:40 Hct 32.4 % (41.0-60) L 05/04/17 05:40 MCV 89.7 fl (80-99) 05/04/17 05:40 MCH 30.3 pg (27.0-31.0) 05/04/17 05:40 MCHC Differential 33.8 pg (28.0-36.0) 05/04/17 05:40 RDW 13.1 % (11.5-20.0) 05/04/17 05:40 Plt Count 278 Th/cmm (150-400) 05/04/17 05:40 MPV 7.1 fl 05/04/17 05:40 Neutrophils % 70.1 % (40.0-80.0) 05/04/17 05:40 Lymphocytes % 18.6 % (20.0-50.0) L 05/04/17 05:40 Monocytes % 6.9 % (2.0-10.0) 05/04/17 05:40 Eosinophils % 4.3 % (0.0-5.0) 05/04/17 05:40 Basophils % 0.1 % (0.0-2.0) 05/04/17 05:40 PT 10.9 SECONDS (9.5-11.5) 04/29/17 17:55 INR 1.05 (0.5-1.4) 04/29/17 17:55 PTT (Actin FS) 25.8 SECONDS (26.0-38.0) L 04/29/17 17:55 Sodium 137 mEq/L (136-145) 05/05/17 06:25 Potassium 3.2 mEq/L (3.5-5.1) L 05/05/17 06:25 Chloride 102 mEq/L (98-107) 05/05/17 06:25 Carbon Dioxide 26.5 mEq/L (21.0-31.0) 05/05/17 06:25 Anion Gap 11.7 (7.0-16.0) 05/05/17 06:25 BUN 8 mg/dL (7-25) 05/05/17 06:25 Creatinine 3.9 mg/dL (0.7-1.3) H 05/05/17 06:25 Est GFR ( Amer) TNP 05/05/17 06:25 Est GFR (Non-Af Amer) TNP 05/05/17 06:25 BUN/Creatinine Ratio 2.1 05/05/17 06:25 Glucose 84 mg/dL (70-105) 05/05/17 06:25 Whole Bld Lactic Acid 1.72 mmol/L (0.60-1.99) 04/29/17 17:55 Calcium 10.0 mg/dL (8.6-10.3) 05/05/17 06:25 Magnesium 1.7 mg/dL (1.9-2.7) L 05/05/17 06:25 Total Bilirubin 0.3 mg/dL (0.3-1.0) 05/04/17 05:40 AST 9 U/L (13-39) L 05/04/17 05:40 ALT 5 U/L (7-52) L 05/04/17 05:40 Alkaline Phosphatase 89 U/L (34-104) 05/04/17 05:40 Creatine Kinase 17 U/L (30-223) L 04/29/17 17:55 Troponin I 0.01 ng/mL (0.01-0.05) 04/29/17 17:55 Total Protein 6.8 gm/dL (6.0-8.3) 05/04/17 05:40 Albumin 3.2 gm/dL (4.2-5.5) L 05/04/17 05:40 Globulin 3.6 gm/dL 05/04/17 05:40 Albumin/Globulin Ratio 0.9 (1.0-1.8) L 05/04/17 05:40 Triglycerides 132 mg/dL (<150) 05/04/17 05:40 Cholesterol 142 mg/dL (<200) 05/04/17 05:40 LDL Cholesterol Direct 75 mg/dL (75-193) 05/04/17 05:40 HDL Cholesterol 42 mg/dL (23-92) 05/04/17 05:40 TSH 2.55 uIU/ml (0.34-5.60) 05/04/17 05:40 Urine Source MIDSTREAM 05/04/17 11:20 Urine Color YELLOW 05/04/17 11:20 Urine Clarity CLEAR (CLEAR) 05/04/17 11:20 Urine pH 7.5 (4.6 - 8.0) 05/04/17 11:20 Ur Specific [place] 1.015 (1.005-1.030) 05/04/17 11:20 Urine Protein 100 mg/dL (NEGATIVE) H 05/04/17 11:20 Urine Glucose (UA) NEGATIVE mg/dL (NEGATIVE) 05/04/17 11:20 Urine Ketones TRACE mg/dL (NEGATIVE) 05/04/17 11:20 Urine Blood NEGATIVE (NEGATIVE) 05/04/17 11:20 Urine Nitrate NEGATIVE (NEGATIVE) 05/04/17 11:20 Urine Bilirubin NEGATIVE (NEGATIVE) 05/04/17 11:20 Urine Urobilinogen 0.2 E.U./dL (0.2 - 1.0) 05/04/17 11:20 Ur Leukocyte Esterase NEGATIVE (NEGATIVE) 05/04/17 11:20 Urine RBC 0-2 /hpf (0-5) H 05/04/17 11:20 Urine WBC 2-5 /hpf (0-5) 05/04/17 11:20 Ur Epithelial Cells FEW /lpf (FEW) 05/04/17 11:20 Urine Bacteria OCCASIONAL /hpf (NONE SEEN) 05/04/17 11:20 - Physical Exam Vitals and I&O: Vital Signs Temp 97.7 F 05/05/17 03:00 Pulse 77 05/05/17 14:36 Resp 18 05/05/17 14:36 BP 130/80 05/05/17 10:22 Pulse Ox 95 05/05/17 14:36 Intake & Output 05/04/17 05/05/17 05/05/17 18:59 06:59 18:59 Intake Total 400 240 Output Total 1500 Balance -1100 240 Weight (lbs) 163 lb 163 lb Intake: Oral 400 240 Output: Hemodialysis 1500 Other: # Voids 3 Stool Characteristics Soft Soft Active Medications: Current Medications Albuterol Sulfate (Albuterol 2.5mg/3ml Neb Ud) 2.5 mg HHN Q8HRT [facility] Stop: 06/29/17 22:59 Last Admin: 05/05/17 14:34 Dose: 2.5 mg Aspirin (Aspirin Chewable) 81 mg PO DAILY [facility] Stop: 06/29/17 12:59 Last Admin: 05/05/17 10:09 Dose: 81 mg Atorvastatin Calcium (Lipitor) 10 mg PO HS [facility] PRN Reason: Protocol Stop: 06/29/17 20:59 Last Admin: 05/04/17 20:59 Dose: 10 mg Citalopram Hydrobromide (Celexa) 20 mg PO DAILY [facility] PRN Reason: Protocol Stop: 06/30/17 08:59 Donepezil HCl (Aricept) 5 mg PO DAILY [facility] Stop: 06/30/17 12:59 Last Admin: 05/05/17 10:09 Dose: 5 mg Ferrous Sulfate (Iron) 325 mg PO BID [facility] Stop: 06/29/17 16:59 Last Admin: 05/05/17 10:13 Dose: 325 mg Finasteride (Proscar) 5 mg PO DAILY [facility] PRN Reason: Protocol Stop: 06/29/17 12:59 Last Admin: 05/05/17 10:13 Dose: 5 mg Folic Acid (Folate) 1 mg PO DAILY [facility] Stop: 06/29/17 11:59 Last Admin: 05/05/17 10:08 Dose: 1 mg Heparin Sodium (Porcine) (Heparin Sodium) 10,000 units HD PRN PRN PRN Reason: Dialysis Stop: 07/01/17 10:44 Last Admin: 05/04/17 10:34 Dose: 10,000 units Cefepime HCl 1 gm/ Sodium (Chloride) 50 mls @ 100 mls/hr IV DAILY [facility] Stop: 07/04/17 08:59 Last Admin: 05/05/17 10:28 Dose: 100 mls/hr Levetiracetam (Keppra) 500 mg PO BID [facility] Stop: 06/29/17 16:59 Last Admin: 05/05/17 10:08 Dose: 500 mg Lorazepam (Ativan) 1 mg IVP Q6HR PRN; Protocol PRN Reason: Seizure Stop: 06/29/17 16:51 Last Admin: 05/02/17 23:46 Dose: 1 mg Metoprolol Tartrate (Lopressor) 25 mg PO DAILY [facility] Stop: 06/30/17 08:59 Last Admin: 05/05/17 10:22 Dose: 25 mg Mirtazapine (Remeron) 15 mg PO HS [facility] PRN Reason: Protocol Stop: 06/29/17 20:59 Miscellaneous (Vancomycin Iv Per Pharmacy) 1 ea MC PRN PRN PRN Reason: PROTOCOL Stop: 07/02/17 23:58 Mupirocin (Bactroban Oint) 1 appl NS BID [facility] Stop: 05/05/17 17:01 Last Admin: 05/05/17 10:10 Dose: 1 appl Olanzapine (Zyprexa) 2.5 mg PO HS [facility] PRN Reason: Protocol Stop: 06/29/17 20:59 Pantoprazole Sodium (Protonix) 40 mg PO DAILY [facility] Stop: 06/30/17 08:59 Last Admin: 05/05/17 10:09 Dose: 40 mg Tamsulosin HCl (Flomax) 0.4 mg PO BID [facility] Stop: 06/29/17 16:59 Last Admin: 05/05/17 10:12 Dose: 0.4 mg General: weak, alert HEENT: NC/AT, PERRLA Neck: Supple Lungs: CTAB Abdomen: soft, non-tender, non-distended - Procedures Procedures: Procedures Procedure Code Date INSERTION OF INFUSION DEV INTO SUP VENA CAVA, PERC APPROACH 42CM03M 01/16/17 PERFORMANCE OF URINARY FILTRATION, <6 HRS/DAY [id number] 01/16/17 ULTRASONOGRAPHY OF SUPERIOR VENA CAVA, GUIDANCE [id number] 01/16/17 Internal Medicine Assmt/Plan - Assessment Assessment: cough possible pna esrd on hd htn dyslipidemia alzheimer dementia - Plan Plan: dc planning follow up labs in am supplemental oxygen and inhalation tx continue current orders Nutritional Asmnt/Malnutr-PDOC - Dietary Evaluation Malnutrition Findings (Please click <Entered> for more info): Nutritional Asmnt/Malnutrition Start: 05/05/17 15: 15 Text: Status: Complete Freq: Document 05/05/17 15:15 LCHENG (Rec: 05/05/17 15:26 LCHENG [id number]) Nutritional Asmnt/Malnutrition Patient General Information Nutritional Screening Moderate Risk Diagnosis Cough, PNA, dehydration Pertinent Medical Hx/Surgical Hx ESRD on HD, HTN, dyslipidemia, alzheimer, dementia Subjective Information Per EMR, PO intake 50-75% with assist. Pt is on HD noted. Next HD is scheduled on tommorr per MD note. Current Diet Order/ Nutrition Support Renal Pertinent Medications iron, folate, remeron, protonix Pertinent Labs 05/05 Na 137, K 3.2, Cl 102, BUN 8, Cr 3.9, glucose 84, Mg 1.7 Nutritional Hx/Data Height 5 ft 9 in Height (Calculated Centimeters) 175.3 Current Weight (lbs) 163 lb Weight (Calculated Kilograms) 73.9 Weight (Calculated Grams) 73643.6 [place] Body Weight 160 Body Mass Index (BMI) 24.0 GI Symptoms GI Symptoms None Last BM 05/04 Difficult in: None Skin Integrity/Comment: Redness on nico cath site. bruise multiple site Current %PO Fair (50-74%) Estimated Nutritional Goals BEE in Kcals: Using Current wt Calories/Kcals/Kg 25-30 Kcals Calculated 7869-6297 Protein: Using Current wt Protein g/k-1.2 Protein Calculated 74-89 Fluid: ml 1850-2220ml (1ml/kcal) Nutritional Problem 2. Problem Problem increased protein needs Etiology increased protein loss Signs/Symptoms: ESRD on HD 1. Problem Problem altered nutrition related labs Etiology ESRD Signs/Symptoms: cr 3.9 Intervention/Recommendation Comments 1. Continue with current diet as ordered. Consider oral supplement Novosource Renal daily to increase nutrition intake. 2. Monitor PO intake, wt, labs and skin integrity 3. F/U as moderate risk in 3-5 days. Expected Outcomes/Goals Expected Outcomes/Goals 1. PO intake to meet at least 75% of nutritional needs. 2. Wt stability, skin to remain intact, labs to approach WNL.
[2017-05-07 12:16] LABS: HEP A AB IGM SEE REF. LAB REPORT
[2017-05-07 12:17] LABS: HEP B CORE IGM SEE REF. LAB REPORT; HEP B SURFACE AG CONF. SEE REF. LAB REPORT; HEP B SURFACE AG QL SEE REF. LAB REPORT; HEP C ANTIBODY SEE REF. LAB REPORT
== END 2017-05-05 18:30 | disposition home or self-care (01) | DRG 871 ==
LOC: ER 17:21 → MSI 19:00
PROVIDERS: ADMIT Internal Medicine; ATTEND Internal Medicine
PROC: 5A1D70Z Performance of Urinary Filtration, Intermittent, Less than 6 Hours Per Day (ICD-10-PCS; principal; 2017-04-30)
PROC: 5A1D70Z Performance of Urinary Filtration, Intermittent, Less than 6 Hours Per Day (ICD-10-PCS; 2017-05-02)
PROC: 5A1D70Z Performance of Urinary Filtration, Intermittent, Less than 6 Hours Per Day (ICD-10-PCS; 2017-05-04)
DX: A41.9 Sepsis, unspecified organism (principal); N18.6 End stage renal disease; J18.1 Lobar pneumonia, unspecified organism; I12.0 Hypertensive chronic kidney disease with stage 5 chronic kidney disease or end stage renal disease; G20 Parkinson's disease; L03.313 Cellulitis of chest wall; G30.9 Alzheimer's disease, unspecified; E86.0 Dehydration; F02.80 Dementia in other diseases classified elsewhere, unspecified severity, without behavioral disturbance, psychotic disturbance, mood disturbance, and anxiety; E78.5 Hyperlipidemia, unspecified; J20.9 Acute bronchitis, unspecified; R62.7 Adult failure to thrive; Z83.3 Family history of diabetes mellitus; Z99.2 Dependence on renal dialysis; Z82.49 Family history of ischemic heart disease and other diseases of the circulatory system; Z71.89 Other specified counseling; Z79.899 Other long term (current) drug therapy; Z22.322 Carrier or suspected carrier of Methicillin resistant Staphylococcus aureus
CPT/HCPCS: 36415-UA; 71045-TC; 80048-TC; 80053-TC; 80061-TC; 80074-90; 81001-TC; 82550-TC; 83605; 83735-TC; 84443-TC; 84484-TC; 85025-TC; 85610-TC; 85730-TC; 87070-90; 87075-90; 87205-90; 93005; 94640; 94760; J0456; J0692; J0696; J1644; J1956; J2060; J3370; J7030; J7040; J7613; P9046; X3904; Z7610

== ENCOUNTER 2017-09-01 16:30 | Inpatient (IN) | payer MEDICARE, BC ==
--- NOTE | 2017-09-01 17:30 | ED Physician Chart ---
ED Chief Complaint/HPI - Patient Information Date Seen:: 09/01/17 Time Seen:: 17:15 Chief Complaint:: vomiting and hypotension History of Present Illness:: Patient had dialysis today. After returning to his [facility] facility vomited once and his blood pressure was apparently low. It is not stated with the blood pressure was however. Allergies:: Allergies Allergy/AdvReac Type Severity Reaction Status Date / Time No Known Allergies Allergy Verified 12/31/16 10:47 Vitals:: Vital Signs - 8 hr 09/01/17 16:41 Temp 97.5 F HR 62 RR 18 BP 94/53 Historian:: EMS Review:: Transfer documents Reviewed ED Review of Systems - Review of Systems General/Constitutional: No fever, No chills, No weight loss, No weakness, No diaphoresis, No edema, No loss of appetite, Other (hypotension) Skin: No skin lesions, No rash, No bruising Head: No headache, No light-headedness Eyes: No loss of vision, No pain, No diplopia ENT: No earache, No nasal drainage, No sore throat, No tinnitus Neck: No neck pain, No swelling, No thyromegaly, No stiffness, No mass noted Cardio Vascular: No chest pain, No palpitations, No PND, No orthopnea, No edema Pulmonary: No SOB, No cough, No sputum, No wheezing GI: Vomiting, No diarrhea, No pain, No melena, No hematochezia, No constipation , No hematemesis G/U: No dysuria, No frequency, No hematuria Musculoskeletal: No bone or joint pain, No back pain, No muscle pain Endocrine: No polyuria, No polydipsia Psychiatric: No prior psych history, No depression, No anxiety, No suicidal ideation Hematopoietic: No bruising, No lymphadenopathy Allergic/Immuno: No urticaria, No angioedema Neurological: No syncope, No focal symptoms, No weakness, No paresthesia, No headache, No seizure, No dizziness, No confusion, No vertigo ED Past Medical History - Past Medical History Past Medical History: No significant medical hx, HTN, Asthma/COPD, Dyslipidemia , PUD/GERD, Other (hyperlipidemia; right-sided weakness; depression) Family History: Other (unavailable) Social History: Care Facility Surgical History: other (permacath right superior chest) Psychiatricy History: Depression Medication: Reviewed Family Medical History - Family Member Mother History Unknown: Yes Ethnicity: Non- Living Status: ED Physical Exam - Physical Examination Other Gen/Cons comments:: Mildly chronically ill-appearing; nonverbal Head: Atraumatic Eyes: Lids, conjuctiva normal, PERRL Skin: Nl inspection ENMT: External ears, nose nl Neck: No nuchal rigidity Respiratory: Nl effort/Exclusion Cardio Vascular: RRR GI: No tenderness/rebounding/guarding : No CVA tenderness Other Extremities comments:: Right wrist and right hand contracture Other Neuro/Psych comments:: Aphasic ED Labs/Radiology/EKG Results - Lab Results Results: Laboratory Results - last 24 hr 09/01/17 17:35 WBC 5.5 RBC 4.15 Hgb 13.1 Hct 38.3 L MCV 92.4 MCH 31.5 H MCHC Differential 34.1 RDW 14.1 Plt Count 254 MPV 6.2 Neutrophils % 74.7 Lymphocytes % 15.6 L Monocytes % 7.7 Eosinophils % 1.6 Basophils % 0.4 Laboratory Results - last 24 hr 09/01/17 09/01/17 17:35 17:35 WBC 5.5 RBC 4.15 Hgb 13.1 Hct 38.3 L MCV 92.4 MCH 31.5 H MCHC Differential 34.1 RDW 14.1 Plt Count 254 MPV 6.2 Neutrophils % 74.7 Lymphocytes % 15.6 L Monocytes % 7.7 Eosinophils % 1.6 Basophils % 0.4 Sodium 134 L Potassium 3.9 Chloride 96 L Carbon Dioxide 29.7 Anion Gap 12.2 BUN 20 Creatinine 3.4 H Est GFR ( Amer) TNP Est GFR (Non-Af Amer) TNP BUN/Creatinine Ratio 5.9 Glucose 85 Calcium 9.9 Lipase 14 ED Septic Shock - . 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
[2017-09-01 17:41] LABS: % BASOPHILS 0.4 % (0.0-2.0); % EOSINOPHILS 1.6 % (0.0-5.0); % LYMPHOCYTES 15.6 % (20.0-50.0); % MONOCYTES 7.7 % (2.0-10.0); % NEUTROPHILS 74.7 % (40.0-80.0); EOSINOPHILE ABSOLUTE 0.1 Th/cmm (0.1-0.4); HEMATOCRIT 38.3 % (41.0-60); HEMOGLOBIN 13.1 gm/dL (12-16); LYMPHOCYTE ABSOLUTE 0.9 Th/cmm (1.5-3.0); MEAN CELL VOLUME 92.4 fl (80-99); MEAN CORPUSCULAR HEMOGLOBIN 31.5 pg (27.0-31.0); MEAN CORPUSCULAR HGB CONC 34.1 pg (28.0-36.0); MEAN PLATELET VOLUME 6.2 fl; MONOCYTE ABSOLUTE 0.4 Th/cmm (0.3-1.0); NEUTROPHILE ABSOLUTE 4.1 Th/cmm (1.8-8.0); PLATELET COUNT 254 Th/cmm (150-400); RED BLOOD COUNT 4.15 Mil/cmm (3.80-5.80); RED CELL DISTRIBUTION WIDTH 14.1 % (11.5-20.0); WHITE BLOOD COUNT 5.5 Th/cmm (4.8-10.8)
[2017-09-01 17:57] LABS: ANION GAP 12.2 (7.0-16.0); BUN - UREA NITROGEN 20 mg/dL (7-25); CALCIUM SERUM 9.9 mg/dL (8.6-10.3); CARBON DIOXIDE 29.7 mEq/L (21.0-31.0); CHLORIDE 96 mEq/L (98-107); CREATININE - SERUM 3.4 mg/dL (0.7-1.3); GLUCOSE 85 mg/dL (70-105); LIPASE 14 U/L (11-82); POTASSIUM SERUM 3.9 mEq/L (3.5-5.1); SODIUM SERUM 134 mEq/L (136-145)
[2017-09-01] MEDS ORDERED: ALBUMIN 25% IV PRN (22:30)
[2017-09-02] MEDS ORDERED: Albumin 25% 25gm/100mL 25 GM/100 ML BTL IV ONE
[2017-09-02] MEDS ORDERED: Pneumococcal Vaccine 0.5 mL Vial IM ONE (02:33)
[2017-09-02] MEDS ORDERED: Gentamicin 80 mg/2mL Vial ONE (05:33)
[2017-09-02] MEDS: Ferrous Sulfate 325 MG TAB PO SCH ×2 (09:21→17:12)
[2017-09-02] MEDS: Pantoprazole 40 mg EC Tab PO SCH (09:22)
[2017-09-02] MEDS: Aspirin 81mg Chewable Tab PO SCH (09:22)
[2017-09-02 14:32] LABS: BASOPHILE ABSOLUTE 0.1 Th/cumm (0-0.2); EOSINOPHILE ABSOLUTE 0.2 Th/cmm (0.1-0.4); MONOCYTE ABSOLUTE 0.4 Th/cmm (0.3-1.0)
[2017-09-02 14:38] LABS: % BASOPHILS 1.8 % (0.0-2.0); % EOSINOPHILS 3.9 % (0.0-5.0); % LYMPHOCYTES 24.4 % (20.0-50.0); % MONOCYTES 9.7 % (2.0-10.0); % NEUTROPHILS 60.2 % (40.0-80.0); HEMATOCRIT 34.9 % (41.0-60); MEAN CELL VOLUME 90.9 fl (80-99); MEAN CORPUSCULAR HEMOGLOBIN 31.4 pg (27.0-31.0); MEAN CORPUSCULAR HGB CONC 34.6 pg (28.0-36.0); MEAN PLATELET VOLUME 6.3 fl; NEUTROPHILE ABSOLUTE 2.3 Th/cmm (1.8-8.0); PLATELET COUNT 245 Th/cmm (150-400); RED BLOOD COUNT 3.84 Mil/cmm (3.80-5.80)
[2017-09-02 14:45] LABS: ALB/GLOB RATIO 1.2 (1.0-1.8); ALBUMIN 3.7 gm/dL (4.2-5.5); ALKALINE PHOSPHATASE 106 U/L (34-104); ANION GAP 11.4 (7.0-16.0); BILIRUBIN,TOTAL 0.4 mg/dL (0.3-1.0); BUN - UREA NITROGEN 28 mg/dL (7-25); CALCIUM SERUM 9.7 mg/dL (8.6-10.3); CARBON DIOXIDE 28.6 mEq/L (21.0-31.0); CHLORIDE 99 mEq/L (98-107); GLUCOSE 110 mg/dL (70-105); LIPASE 20 U/L (11-82); SGOT 7 U/L (13-39); SGPT/ALT 6 U/L (7-52); SODIUM SERUM 135 mEq/L (136-145); TOTAL PROTEIN,SERUM 6.8 gm/dL (6.0-8.3)
[2017-09-02 14:59] LABS: CREATININE - SERUM 4.5 mg/dL (0.7-1.3)
[2017-09-02 15:05] LABS: WHITE BLOOD COUNT 4.2 Th/cmm (4.8-10.8)
[2017-09-02] MEDS: Atorvastatin Calcium 10 MG TAB PO SCH (21:48)
--- NOTE | 2017-09-02 23:53 | Consultation ---
Consult Note - Consult Note Service Date: 09/02/17 Referring Physician: Farheen Wiggins Consult Note: PHYSICIAN Consultation Note: Date of Admission: 09/01/17 Purpose of Consultation: Sepsis. Chief Complaint: Patient ANDRE REES JR was admitted to [facility] with HYPOTENSION, ENCEPHALOPATHY. History of Present Illness: Patient is a 77 -year-old male past medical history of diabetes mellitus type 2 , CK D stage V had developed hypotension at dialysis centers. So he was sent to the ER for further evaluation and management. On initial evaluation, patient 's temperature was 97.5F and WBC count 5500.. Sepsis workup was performed and ID consult was called for antibiotic management, and I did start the patient on vancomycin and gentamicin IV. Past Medical History: Diabetes mellitus type 2, hypertension. CK D stage V. On a low-dose. Allergies Allergy/AdvReac Type Severity Reaction Status Date / Time No Known Allergies Allergy Verified 12/31/16 10:47 Vital Signs Temp 97.6 F 09/02/17 16:09 Pulse 64 09/02/17 16:09 Resp 19 09/02/17 16:09 BP 94/57 09/02/17 16:09 Pulse Ox 97 09/02/17 16:09 Intake & Output 09/02/17 09/02/17 09/03/17 06:59 18:59 06:59 Intake Total 500 Balance 500 Weight (lbs) 81.647 kg 81.647 kg Intake: Oral 500 Other: # Bowel Movements 0 Stool Characteristics Soft Green Weight Source Bedscale Bedscale Laboratory Results - last 24 hr 09/02/17 09/02/17 14:20 14:20 WBC 4.2 L RBC 3.84 Hgb 12.0 Hct 34.9 L MCV 90.9 MCH 31.4 H MCHC Differential 34.6 RDW 14.0 Plt Count 245 MPV 6.3 Neutrophils % 60.2 Lymphocytes % 24.4 Monocytes % 9.7 Eosinophils % 3.9 Basophils % 1.8 Sodium 135 L Potassium 4.0 Chloride 99 Carbon Dioxide 28.6 Anion Gap 11.4 BUN 28 H Creatinine 4.5 H* Est GFR ( Amer) TNP Est GFR (Non-Af Amer) TNP BUN/Creatinine Ratio 6.2 Glucose 110 H Calcium 9.7 Total Bilirubin 0.4 AST 7 L ALT 6 L Alkaline Phosphatase 106 H Total Protein 6.8 Albumin 3.7 L Globulin 3.1 Albumin/Globulin Ratio 1.2 Lipase 20 Home Medication Medication Instructions Recorded Type Aspirin 81 mg PO DAILY 01/16/17 History Atorvastatin Calcium [Lipitor] 10 mg PO HS 01/16/17 History Citalopram Hydrobromide 20 mg PO DAILY 01/16/17 History [Citalopram HBr] Ferrous Sulfate [Iron] 325 mg PO BID 01/16/17 History Finasteride [Proscar] 5 mg PO DAILY 01/16/17 History Folic Acid [Folate*] 1 mg PO DAILY 01/16/17 History Metoprolol Tartrate 25 mg PO DAILY 01/16/17 History Mirtazapine [Remeron] 15 mg PO HS 01/16/17 History OLANZapine [ZyPREXA] 2.5 mg PO HS 01/16/17 History Pantoprazole Sodium 40 mg PO DAILY 01/16/17 History Tamsulosin HCl [Flomax] 0.4 mg PO BID 01/16/17 History Albumin 25% 25gm/100mL [Albuminar 25 gm IV PRN PRN btl 01/20/17 Rx 25%] Donepezil Hcl [Aricept] 5 mg PO DAILY tab 01/20/17 Rx Heparin Sodium [Heparin*] 5,000 units HD PRN PRN vial 01/20/17 Rx Levetiracetam [Keppra] 500 mg PO BID tab 01/20/17 Rx Lorazepam [Ativan] 1 mg IVP Q6HR PRN vial 01/20/17 Rx Current Medications Generic Name Dose Route Start Last Admin Trade Name Freq PRN Reason Stop Dose Admin Albumin Human 25 gm 09/01/17 22:30 Albuminar 25% IV 10/31/17 22:29 PRN PRN BP SUPPORT DURING HD Aspirin 81 mg 09/02/17 09:00 09/02/17 09:22 Aspirin Chewable PO 11/01/17 08:59 81 mg DAILY [facility] Administration Atorvastatin Calcium 10 mg 09/02/17 21:00 09/02/17 21:48 Lipitor PO 11/01/17 20:59 10 mg HS [facility] Administration Protocol Citalopram Hydrobromide 20 mg 09/02/17 09:00 09/02/17 09:21 Celexa PO 11/01/17 08:59 20 mg DAILY [facility] Administration Protocol Donepezil HCl 5 mg 09/02/17 09:00 09/02/17 09:21 Aricept PO 11/01/17 08:59 5 mg DAILY [facility] Administration Ferrous Sulfate 325 mg 09/02/17 09:00 09/02/17 17:12 Iron PO 11/01/17 08:59 325 mg BID [facility] Administration Finasteride 5 mg 09/02/17 09:00 09/02/17 09:22 Proscar PO 11/01/17 08:59 5 mg DAILY [facility] Administration Protocol Heparin Sodium (Porcine) 5,000 units 09/01/17 21:27 Heparin HD 10/31/17 21:26 PRN PRN [facility] Levetiracetam 500 mg 09/02/17 09:00 09/02/17 17:11 Keppra PO 11/01/17 08:59 500 mg BID [facility] Administration Lorazepam 1 mg 09/01/17 21:27 Ativan IVP 10/31/17 21:26 Q6HR PRN Seizure Protocol Metoprolol Tartrate 12.5 mg 09/03/17 09:00 Lopressor PO 11/02/17 08:59 BID [facility] Mirtazapine 15 mg 09/02/17 21:00 09/02/17 21:49 Remeron PO 11/01/17 20:59 15 mg HS [facility] Administration Protocol Miscellaneous 1 ea 09/02/17 02:45 Vancomycin Iv Per Pharmacy 11/01/17 02:44 PRN [facility] Miscellaneous 1 ea 09/02/17 02:44 Gentamicin Iv Per Pharmacy 11/01/17 02:43 PRN PRN PROTOCOL Olanzapine 2.5 mg 09/02/17 21:00 09/02/17 21:48 Zyprexa PO 11/01/17 20:59 2.5 mg HS [facility] Administration Protocol Pantoprazole Sodium 40 mg 09/02/17 09:00 09/02/17 09:22 Protonix PO 11/01/17 08:59 40 mg DAILY [facility] Administration Vitamin B Complex/Vit C/Folic Acid 1 tab 09/03/17 09:00 Vitamin B Complex W/Vitamin C PO 11/02/17 08:59 DAILY [facility] Review of Systems: A 12 point ROS was reviewed with the pertinent positive and negatives noted in the HPI. Social History Smoking Status Unknown if ever smoked Family Medical History Family Medical History Start: 09/01/17 21: 59 Freq: ONCE Status: Active Protocol: Document 09/01/17 21:59 [email or web address] (Rec: 09/02/17 02:09 [email or web address] [id number]) Family Medical History Mother History Unknown Yes Physical Exam: General: Comfortable, not in acute distress. Head: 70. He: Moist, pink tongue. HEENT: : Normocephalic, atraumatic. Oral: Moist, pink tongue. Neck : supple no JVD no cavity Respirations are present. Cardio: S1 and S2 within normal metabolism normal murmur or gallop. Respiratory: Vesicular breath sound. No crackles no wheezing Abdominal: Left, nontender, nondistended bowel sounds present Genital/Urinary: Extremities: No S, no clubbing, no edema. Neurological: Not communicating at this time. Impression: 1. Suspect sepsis as patient had hypotension 2. 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 CHF 4. Hypertension Plan: Continue vancomycin and gentamicin. Follow-up culture report. Thank you, Dr. Wiggins, for involving me in taking care of this patient Signed, Steve Soliman M.D. [id number]
[2017-09-03] MEDS: Pantoprazole 40 mg EC Tab PO SCH (09:00)
[2017-09-03] MEDS: Vitamin B Complex w/Vitamin C Tab PO SCH (09:00)
[2017-09-03] MEDS: Ferrous Sulfate 325 MG TAB PO SCH ×2 (09:00→17:07)
[2017-09-03] MEDS: Aspirin 81mg Chewable Tab PO SCH (09:00)
[2017-09-03 09:18] LABS: % BASOPHILS 1.1 % (0.0-2.0); % EOSINOPHILS 3.2 % (0.0-5.0); % LYMPHOCYTES 20.5 % (20.0-50.0); % MONOCYTES 8.6 % (2.0-10.0); % NEUTROPHILS 66.6 % (40.0-80.0); BASOPHILE ABSOLUTE 0.1 Th/cumm (0-0.2); EOSINOPHILE ABSOLUTE 0.2 Th/cmm (0.1-0.4); HEMATOCRIT 37.5 % (41.0-60); HEMOGLOBIN 12.8 gm/dL (12-16); MEAN CELL VOLUME 92.6 fl (80-99); MEAN CORPUSCULAR HEMOGLOBIN 31.5 pg (27.0-31.0); MEAN PLATELET VOLUME 6.4 fl; MONOCYTE ABSOLUTE 0.4 Th/cmm (0.3-1.0); NEUTROPHILE ABSOLUTE 3.4 Th/cmm (1.8-8.0); PLATELET COUNT 275 Th/cmm (150-400); RED BLOOD COUNT 4.06 Mil/cmm (3.80-5.80); RED CELL DISTRIBUTION WIDTH 13.9 % (11.5-20.0); WHITE BLOOD COUNT 5.1 Th/cmm (4.8-10.8)
[2017-09-03 09:39] LABS: ALB/GLOB RATIO 1.2 (1.0-1.8); ALBUMIN 3.9 gm/dL (4.2-5.5); ALKALINE PHOSPHATASE 113 U/L (34-104); ANION GAP 12.5 (7.0-16.0); BILIRUBIN,TOTAL 0.4 mg/dL (0.3-1.0); BUN - UREA NITROGEN 36 mg/dL (7-25); CALCIUM SERUM 10.2 mg/dL (8.6-10.3); CARBON DIOXIDE 26.6 mEq/L (21.0-31.0); CHLORIDE 101 mEq/L (98-107); GLUCOSE 90 mg/dL (70-105); POTASSIUM SERUM 4.1 mEq/L (3.5-5.1); SGOT 6 U/L (13-39); SGPT/ALT 8 U/L (7-52); SODIUM SERUM 136 mEq/L (136-145); TOTAL PROTEIN,SERUM 7.3 gm/dL (6.0-8.3)
[2017-09-03 10:05] LABS: CREATININE - SERUM 5.4 mg/dL (0.7-1.3)
--- NOTE | 2017-09-03 13:03 | Infectious Disease Prog Note ---
Infectious Disease Subjective - Review of Systems Service Date: 09/03/17 Subjective: There is no new change, no fever. Blood pressure better controlled during hemodialysis, which he is receiving at this time. Infectious Disease Objective - Results Result Diagrams: 09/03/17 09:00 09/03/17 09:00 Recent Labs: Laboratory Last Values WBC 5.1 Th/cmm (4.8-10.8) 09/03/17 09:00 RBC 4.06 Mil/cmm (3.80-5.80) 09/03/17 09:00 Hgb 12.8 gm/dL (12-16) 09/03/17 09:00 Hct 37.5 % (41.0-60) L 09/03/17 09:00 MCV 92.6 fl (80-99) 09/03/17 09:00 MCH 31.5 pg (27.0-31.0) H 09/03/17 09:00 MCHC Differential 34.0 pg (28.0-36.0) 09/03/17 09:00 RDW 13.9 % (11.5-20.0) 09/03/17 09:00 Plt Count 275 Th/cmm (150-400) 09/03/17 09:00 MPV 6.4 fl 09/03/17 09:00 Neutrophils % 66.6 % (40.0-80.0) 09/03/17 09:00 Lymphocytes % 20.5 % (20.0-50.0) 09/03/17 09:00 Monocytes % 8.6 % (2.0-10.0) 09/03/17 09:00 Eosinophils % 3.2 % (0.0-5.0) 09/03/17 09:00 Basophils % 1.1 % (0.0-2.0) 09/03/17 09:00 Sodium 136 mEq/L (136-145) 09/03/17 09:00 Potassium 4.1 mEq/L (3.5-5.1) 09/03/17 09:00 Chloride 101 mEq/L (98-107) 09/03/17 09:00 Carbon Dioxide 26.6 mEq/L (21.0-31.0) 09/03/17 09:00 Anion Gap 12.5 (7.0-16.0) 09/03/17 09:00 BUN 36 mg/dL (7-25) H 09/03/17 09:00 Creatinine 5.4 mg/dL (0.7-1.3) H* 09/03/17 09:00 Est GFR ( Amer) TNP 09/03/17 09:00 Est GFR (Non-Af Amer) TNP 09/03/17 09:00 BUN/Creatinine Ratio 6.7 09/03/17 09:00 Glucose 90 mg/dL (70-105) 09/03/17 09:00 POC Glucose 83 MG/DL (70 - 105) 09/01/17 22:50 Calcium 10.2 mg/dL (8.6-10.3) 09/03/17 09:00 Total Bilirubin 0.4 mg/dL (0.3-1.0) 09/03/17 09:00 AST 6 U/L (13-39) L 09/03/17 09:00 ALT 8 U/L (7-52) 09/03/17 09:00 Alkaline Phosphatase 113 U/L (34-104) H 09/03/17 09:00 Total Protein 7.3 gm/dL (6.0-8.3) 09/03/17 09:00 Albumin 3.9 gm/dL (4.2-5.5) L 09/03/17 09:00 Globulin 3.4 gm/dL 09/03/17 09:00 Albumin/Globulin Ratio 1.2 (1.0-1.8) 09/03/17 09:00 Lipase 20 U/L (11-82) 09/02/17 14:20 Gentamicin 3.2 ug/mL (0.5-10.0) 09/03/17 09:00 Random Vancomycin 13.4 ug/mL (5.0-40.0) 09/03/17 09:00 - Physical Exam Vitals and I&O: Vital Signs Temp 97.3 F 09/03/17 12:14 Pulse 65 09/03/17 12:14 Resp 18 09/03/17 12:14 BP 132/85 09/03/17 12:14 Pulse Ox 97 09/03/17 12:14 Intake & Output 09/02/17 09/03/17 09/03/17 18:59 06:59 18:59 Intake Total 500 Output Total 2 Balance 500 -2 Weight (lbs) 81.647 kg 68.492 kg Intake: Oral 500 Output: Urine/Stool Mix 2 Other: # Bowel Movements 0 Weight Source Bedscale Bedscale Active Medications: Current Medications Albumin Human (Albuminar 25%) 25 gm IV PRN PRN PRN Reason: BP SUPPORT DURING HD Stop: 10/31/17 22:29 Aspirin (Aspirin Chewable) 81 mg PO DAILY [facility] Stop: 11/01/17 08:59 Last Admin: 09/02/17 09:22 Dose: 81 mg Atorvastatin Calcium (Lipitor) 10 mg PO HS [facility]; Protocol Stop: 11/01/17 20:59 Last Admin: 09/02/17 21:48 Dose: 10 mg Citalopram Hydrobromide (Celexa) 20 mg PO DAILY [facility]; Protocol Stop: 11/01/17 08:59 Last Admin: 09/02/17 09:21 Dose: 20 mg Donepezil HCl (Aricept) 5 mg PO DAILY [facility] Stop: 11/01/17 08:59 Last Admin: 09/02/17 09:21 Dose: 5 mg Ferrous Sulfate (Iron) 325 mg PO BID [facility] Stop: 11/01/17 08:59 Last Admin: 09/02/17 17:12 Dose: 325 mg Finasteride (Proscar) 5 mg PO DAILY [facility]; Protocol Stop: 11/01/17 08:59 Last Admin: 09/02/17 09:22 Dose: 5 mg Heparin Sodium (Porcine) (Heparin) 5,000 units HD PRN PRN PRN Reason: DIALYSIS PORTS Stop: 10/31/17 21:26 Vancomycin HCl 1.25 gm/ Sodium (Chloride) 250 mls @ 165 mls/hr IV 1400 ONE Stop: 09/03/17 15:30 Gentamicin Sulfate 120 mg/ (Sodium Chloride) 103 mls @ 100 mls/hr IV 1600 ONE Stop: 09/03/17 17:01 Levetiracetam (Keppra) 500 mg PO BID [facility] Stop: 11/01/17 08:59 Last Admin: 09/02/17 17:11 Dose: 500 mg Lorazepam (Ativan) 1 mg IVP Q6HR PRN; Protocol PRN Reason: Seizure Stop: 10/31/17 21:26 Metoprolol Tartrate (Lopressor) 12.5 mg PO BID [facility] Stop: 11/02/17 08:59 Mirtazapine (Remeron) 15 mg PO HS [facility]; Protocol Stop: 11/01/17 20:59 Last Admin: 09/02/17 21:49 Dose: 15 mg Miscellaneous (Vancomycin Iv Per Pharmacy) 1 ea MC PRN [facility] Stop: 11/01/17 02:44 Miscellaneous (Gentamicin Iv Per Pharmacy) 1 ea MC PRN PRN PRN Reason: PROTOCOL Stop: 11/01/17 02:43 Miscellaneous (Clinical Monitoring) 1 ea MC DAILY PRN PRN Reason: RENAL DOSING Stop: 11/02/17 12:50 Mupirocin (Bactroban Oint) 1 appl NS BID [facility] Stop: 09/07/17 17:01 Olanzapine (Zyprexa) 2.5 mg PO HS [facility]; Protocol Stop: 11/01/17 20:59 Last Admin: 09/02/17 21:48 Dose: 2.5 mg Pantoprazole Sodium (Protonix) 40 mg PO DAILY [facility] Stop: 11/01/17 08:59 Last Admin: 09/02/17 09:22 Dose: 40 mg Vitamin B Complex/Vit C/Folic Acid (Vitamin B Complex W/Vitamin C) 1 tab PO DAILY [facility] Stop: 11/02/17 08:59 General: no acute distress, well developed, well nourished HEENT: atraumatic, normocephalic, PERRLA, EOMI Neck: supple, no thyromegaly Cardiovascular: S1S2, regular Lungs: clear to auscultation bilaterally, clear to percussion Abdomen: soft, no tender, no distended Extremities: no cyanosis, no clubbing, no edema Skin: intact - Procedures Procedures: Procedures Procedure Code Date INSERTION OF INFUSION DEV INTO SUP VENA CAVA, PERC APPROACH [id number] 01/16/17 PERFORMANCE OF URINARY FILTRATION, <6 HRS/DAY [id number] 04/29/17 ULTRASONOGRAPHY OF SUPERIOR VENA CAVA, GUIDANCE [id number] 01/16/17 Infectious Disease Assmt/Plan - Assessment Assessment: 1. Suspect sepsis as patient had hypotension 2. 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 CHF 4. Hypertension - Plan Plan: CPM. Abx vanco IV and genta.
--- NOTE | 2017-09-03 16:31 | History & Physical ---
ADMIT DATE: 09/01/2017 HISTORY OF PRESENT ILLNESS: This patient is very well known to me. The patient lives in [facility]. Apparently the patient came back from the dialysis, became hypotensive, pale and was seen in [facility], was evaluated and found to have a low blood pressure and for possible sepsis, the patient was admitted. The patient is known to have history of hypertension, diabetes, history of CKD stage 5. PHYSICAL EXAMINATION: GENERAL: The patient is awake, alert, somewhat confused and has right-sided hemiparesis. HEAD: Normal. ENT: Normal. NECK: Supple, nontender. LUNGS: Clear. CARDIOVASCULAR SYSTEM: S1, S2 heard. ABDOMEN: Soft. Bowel sounds are heard. CENTRAL NERVOUS SYSTEM: Slightly confused. DIAGNOSES: Encephalopathy, hypotension, rule out septic shock. 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 PLAN: The patient is being admitted and we will do workup. Give him fluids including albumin and we will also have Nephrology see the patient as well as Infectious Disease and I will follow along. JOB# [id number]
--- NOTE | 2017-09-03 19:41 | Consultation ---
DATE OF CONSULTATION: 09/02/2017 PATIENT'S AGE: 77 years. SEX: Male. RACE: . HISTORY OF PRESENT ILLNESS: The patient who has been admitted here under the care of Dr. Wiggins has asked consultation for further evaluation and management. This patient who does have multiple medical problems, which include but not limited to chronic renal failure, on dialysis 3 times a week. The patient also does have problems with coronary artery disease, for which the patient had been on metoprolol 25 mg p.o. b.i.d. In addition, the patient's other medications include, but not limited to his atorvastatin 10 mg p.o. at bedtime, aspirin 81 mg p.o. daily, Celexa 20 mg p.o. daily, also on Aricept 5 mg p.o. daily, ferrous sulfate 325 mg p.o. b.i.d. The patient is also on Proscar 5 mg p.o. daily and folic acid 1 mg p.o. daily. In addition to that, the patient is on Keppra 500 mg p.o. b.i.d., lorazepam 1 mg IV push q. 6 hours p.r.n. and Remeron 50 mg p.o. at bedtime. The patient at present is also on vancomycin and gentamicin, reasons not clear and in addition, the patient is on Zyprexa 2.5 mg p.o. at bedtime daily, also on Flomax 0.4 mg p.o. b.i.d. On clinical examination, the patient basically had hypotensive episode yesterday that was the main reason why he was brought in here and was feeling dizzy and almost like passing out. The patient is reasonably well for 77 years of age. He is conscious, trying to be cooperative and he understands his primary disease process. Reason for his chronic renal failure is not very clear. Jugular venous pressure is not raised. Last blood pressure had been in the range of 100 to 70 mmHg. Heart rate around 70 per minute. Chest examination reveals reasonably good air entry. Heart sounds S1 and S2 normally heard. No S3 or S4 noted. The patient does not seem to be having any significant edema or fluid overload at least with the present clinical examination. Considering above and noting all these medicines would suggest put arrange dialysis for tomorrow because of chronic renal failure. LABORATORY DATA: Chemistries have been reviewed, which are as follows: Sodium 135, potassium 4.0, chloride 99, CO2 content 28.6, glucose 110, BUN 28, creatinine 4.5 and albumin 3.7. Liver enzymes essentially normal. Calcium 9.7 and calcium phosphate 106. ASSESSMENT AND PLAN: Plan to dialyze tomorrow on a 2 K bath for 3 hours ultrafilter, nothing, may give some more sodium chloride and make sure that the patient is not significantly hypotensive, but does not become more hypertensive. Would suggest also to cut down metoprolol to 12.5 mg p.o. b.i.d. Also, discontinue Flomax because that lowers the blood pressure. In addition to that, try to be very cautious giving lorazepam and Celexa. Also, would take away the folic acid and give Nephro-Nile, which has got folic acid and other water soluble vitamins. JOB# [id number]
[2017-09-03] MEDS: Atorvastatin Calcium 10 MG TAB PO SCH (21:49)
[2017-09-04] MEDS: Pantoprazole 40 mg EC Tab PO SCH (10:03)
[2017-09-04] MEDS: Ferrous Sulfate 325 MG TAB PO SCH ×2 (10:03→16:28)
[2017-09-04] MEDS: Aspirin 81mg Chewable Tab PO SCH (10:04)
[2017-09-04] MEDS: Vitamin B Complex w/Vitamin C Tab PO SCH (10:04)
== END 2017-09-04 18:00 | disposition home or self-care (01) | DRG 871 ==
LOC: ER 16:30 → TELE 20:10
PROVIDERS: ADMIT Internal Medicine; ATTEND Internal Medicine
PROC: 5A1D70Z Performance of Urinary Filtration, Intermittent, Less than 6 Hours Per Day (ICD-10-PCS; principal; 2017-09-03)
DX: A41.9 Sepsis, unspecified organism (principal); N18.6 End stage renal disease; G93.41 Metabolic encephalopathy; I69.351 Hemiplegia and hemiparesis following cerebral infarction affecting right dominant side; I13.2 Hypertensive heart and chronic kidney disease with heart failure and with stage 5 chronic kidney disease, or end stage renal disease; Z99.2 Dependence on renal dialysis; E11.22 Type 2 diabetes mellitus with diabetic chronic kidney disease; I69.320 Aphasia following cerebral infarction; J44.9 Chronic obstructive pulmonary disease, unspecified; E78.5 Hyperlipidemia, unspecified; K21.9 Gastro-esophageal reflux disease without esophagitis; I25.10 Atherosclerotic heart disease of native coronary artery without angina pectoris; I50.9 Heart failure, unspecified; Z79.82 Long term (current) use of aspirin
CPT/HCPCS: 36415-UA; 80048-TC; 80053-TC; 80170-TC; 80202-TC; 82948-90; 83690-TC; 85025-TC; 90937; J1580; J3370; J7030; P9046; Z7610

== ENCOUNTER 2017-10-31 21:02 | Inpatient (IN) | payer MEDICARE, BC ==
[2017-10-31] MEDS ORDERED: Acetaminophen 500 MG TAB PO ONE (21:14)
[2017-10-31] MEDS ORDERED: Sodium Chloride 0.45% 500 ML IV ONE (21:20)
--- NOTE | 2017-10-31 21:28 | ED Physician Chart ---
ED Chief Complaint/HPI - Patient Information Date Seen:: 10/31/17 Time Seen:: 21:14 Chief Complaint:: fever History of Present Illness:: this is a dialysis patient sent to er for an evaluation and treatment because of chills and fever. The patient denies having chest pain, abdominal pain and leg pain. he denies having a cough. He adimits to vomiting yesterday. Allergies:: Allergies Allergy/AdvReac Type Severity Reaction Status Date / Time No Known Allergies Allergy Verified 10/31/17 21:13 Vitals:: Vital Signs - 8 hr 10/31/17 21:05 Temp 101.6 F HR 111 RR 18 BP 111/58 O2 Sat % 95 Historian:: Patient, Medical Records Review:: Nurse's Note Reviewed, Old Chart Reviewed ED Review of Systems - Review of Systems General/Constitutional: Fever, Chills, No weight loss, No weakness, No diaphoresis, No edema, No loss of appetite Skin: No skin lesions, No rash, No bruising Head: No headache, No light-headedness Eyes: No loss of vision, No pain, No diplopia ENT: No earache, No nasal drainage, No sore throat, No tinnitus Neck: No neck pain, No swelling, No thyromegaly, No stiffness, No mass noted Cardio Vascular: No chest pain, No palpitations, No PND, No orthopnea, No edema Pulmonary: No SOB, No cough, No sputum, No wheezing GI: Nausea, Vomiting, No diarrhea, No pain, No melena, No hematochezia, No constipation, No hematemesis G/U: No dysuria, No frequency, No hematuria Musculoskeletal: No bone or joint pain, No back pain, No muscle pain Endocrine: No polyuria, No polydipsia Psychiatric: Prior psych history, No depression, No anxiety, No suicidal ideation Hematopoietic: No bruising, No lymphadenopathy Allergic/Immuno: No urticaria, No angioedema Neurological: No syncope, No focal symptoms, No weakness, No paresthesia, No headache, No seizure, No dizziness, No confusion, No vertigo Other: 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 ED Past Medical History - Past Medical History Obtainable: Yes Past Medical History: HTN, DM, CVA/TIA, ESRD, Dementia, Other (parkinson's) Family History: None Social History: Non Smoker, No Alcohol, No Drug Use, Care Facility Surgical History: other (triple lument placement in the right in the right chest wall) Psychiatricy History: Depression, Dementia Medication: Reviewed Family Medical History - Family Member Mother History Unknown: Yes Ethnicity: Non- Living Status: ED Physical Exam - Physical Examination General/Constitutional: Awake, Well-developed, well-nourished, Alert, No distress, GCS 15, Non-toxic appearing, Ambulatory Head: Atraumatic Eyes: Lids, conjuctiva normal, PERRL, EOMI Skin: Nl inspection, No rash, No skin lesions, No ecchymosis, Well hydrated, No lymphadenopathy ENMT: External ears, nose nl, Nasal exam nl, Lips, teeth, gums nl Neck: Nontender, Full ROM w/o pain, No JVD, No nuchal rigidity, No bruit, No mass, No stridor Respiratory: Nl effort/Exclusion, Clear to Auscultation, No Wheeze/Rhonchi/Rales Cardio Vascular: RRR, No murmur, gallop, rubs, NL S1 S2 GI: No tenderness/rebounding/guarding, No organomegaly, No hernia, Normal BS's, Nondistended, No mass/bruits, No McBurney tenderness : No CVA tenderness Extremities: No tenderness or effusion, Full ROM, normal strength in all extremities, No edema, Normal digits & nails Neuro/Psych: Alert/oriented, DTR's symmetric, Normal sensory exam, Normal motor strength, Judgement/insight normal, Mood normal, Normal gait, No focal deficits Other Neuro/Psych comments:: there is 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 Misc: Normal back, No paraspinal tenderness ED Labs/Radiology/EKG Results - Lab Results Results: Abnormal Lab Results 10/31/17 10/31/17 10/31/17 21:40 21:40 21:40 WBC 11.3 H RBC 3.61 L Hgb 11.3 L Hct 33.8 L MCV 93.4 MCH 31.3 H MCHC Differential 33.5 RDW 13.4 Plt Count 169 MPV 7.2 Neutrophils % 87.5 H Lymphocytes % 7.5 L Monocytes % 4.5 Eosinophils % 0.2 Basophils % 0.3 Neutrophils (Manual) Not Reportable PT 11.0 INR 1.06 Sodium 135 L Potassium 3.1 L Chloride 96 L Carbon Dioxide 28.9 Anion Gap 13.2 BUN 19 Creatinine 2.9 H Est GFR ( Amer) TNP Est GFR (Non-Af Amer) TNP BUN/Creatinine Ratio 6.6 Glucose 101 Calcium 9.8 Total Bilirubin 0.6 AST 38 ALT 31 Alkaline Phosphatase 109 H Troponin I Total Protein 7.1 Albumin 3.4 L Globulin 3.7 Albumin/Globulin Ratio 0.9 L 10/31/17 21:40 WBC RBC Hgb Hct MCV MCH MCHC Differential RDW Plt Count MPV Neutrophils % Lymphocytes % Monocytes % Eosinophils % Basophils % Neutrophils (Manual) PT INR Sodium Potassium Chloride Carbon Dioxide Anion Gap BUN Creatinine Est GFR ( Amer) Est GFR (Non-Af Amer) BUN/Creatinine Ratio Glucose Calcium Total Bilirubin AST ALT Alkaline Phosphatase Troponin I 0.04 Total Protein Albumin Globulin Albumin/Globulin Ratio - Radiology Results Results: ct scan of the abdomen and pelvis = aortic aneurysm, right pleural effusion, left basilar infiltrate - EKG Interpretations EKG Time:: 21:18 Rate & Rhythm: rate =107 sinus [place]: left Intervals: no ectopy seen ED Assessment - Assessment General Assessment: left lower lobe pneumonia aortic aneurysm right pleural effusion renal disease status post cva with right sided paralysis ED Septic Shock - . Is Septic Shock (SBP<90, OR Lactate>4 mmol\L) present?: No - <6hrs of presentation: Vital Signs: Vital Signs - 8 hr 10/31/17 21:05 Temp 101.6 F HR 111 RR 18 BP 111/58 O2 Sat % 95 ED Reassessment (Disposition) - Reassessment Reassessment Condition:: Improved - Diagnosis Diagnosis:: pneumonia pleural effusion aneurysm of the aorta renal disease - Patient Disposition Discharge/Transfer:: Acute Care w/in this hosp Admitted to:: Telemetry Admitting Medical Physician:: Farheen Wiggins Condition at Disposition:: Improved
[2017-10-31] MEDS ORDERED: Acetaminophen 500 MG TAB ONE (21:30)
[2017-10-31 22:00] LABS: % BASOPHILS 0.3 % (0.0-2.0); % EOSINOPHILS 0.2 % (0.0-5.0); % LYMPHOCYTES 7.5 % (20.0-50.0); % MONOCYTES 4.5 % (2.0-10.0); % NEUTROPHILS 87.5 % (40.0-80.0); HEMATOCRIT 33.8 % (41.0-60); HEMOGLOBIN 11.3 gm/dL (12-16); LYMPHOCYTE ABSOLUTE 0.8 Th/cmm (1.5-3.0); MEAN CELL VOLUME 93.4 fl (80-99); MEAN CORPUSCULAR HEMOGLOBIN 31.3 pg (27.0-31.0); MEAN CORPUSCULAR HGB CONC 33.5 pg (28.0-36.0); MEAN PLATELET VOLUME 7.2 fl; MONOCYTE ABSOLUTE 0.5 Th/cmm (0.3-1.0); PLATELET COUNT 169 Th/cmm (150-400); RED BLOOD COUNT 3.61 Mil/cmm (3.80-5.80); RED CELL DISTRIBUTION WIDTH 13.4 % (11.5-20.0); WHITE BLOOD COUNT 11.3 Th/cmm (4.8-10.8)
[2017-10-31 22:18] LABS: INR 1.06 (0.5-1.4)
[2017-10-31 22:19] LABS: ALB/GLOB RATIO 0.9 (1.0-1.8); ALBUMIN 3.4 gm/dL (4.2-5.5); ALKALINE PHOSPHATASE 109 U/L (34-104); ANION GAP 13.2 (7.0-16.0); BILIRUBIN,TOTAL 0.6 mg/dL (0.3-1.0); BUN - UREA NITROGEN 19 mg/dL (7-25); CALCIUM SERUM 9.8 mg/dL (8.6-10.3); CARBON DIOXIDE 28.9 mEq/L (21.0-31.0); CHLORIDE 96 mEq/L (98-107); CREATININE - SERUM 2.9 mg/dL (0.7-1.3); GLUCOSE 101 mg/dL (70-105); POTASSIUM SERUM 3.1 mEq/L (3.5-5.1); SGOT 38 U/L (13-39); SGPT/ALT 31 U/L (7-52); SODIUM SERUM 135 mEq/L (136-145); TOTAL PROTEIN,SERUM 7.1 gm/dL (6.0-8.3)
[2017-10-31] MEDS ORDERED: Potassium Chloride Elixir 20 mEq /15 mL UDC PO ONE (22:33)
[2017-10-31] MEDS ORDERED: Potassium Chloride Elixir 20 mEq /15 mL UDC ONE (22:36)
[2017-11-01 00:28] VITALS: BP 83/54
[2017-11-01] MEDS ORDERED: Piperacillin Sodium/Tazobact 2.25 gm Vial IV ONE (00:58)
[2017-11-01 06:49] LABS: HEMOGLOBIN 9.3 gm/dL (12-16); MEAN CELL VOLUME 93.3 fl (80-99); MEAN CORPUSCULAR HEMOGLOBIN 32.1 pg (27.0-31.0); MEAN CORPUSCULAR HGB CONC 34.4 pg (28.0-36.0); MEAN PLATELET VOLUME 7.4 fl; PLATELET COUNT 125 Th/cmm (150-400); RED BLOOD COUNT 2.91 Mil/cmm (3.80-5.80); RED CELL DISTRIBUTION WIDTH 13.4 % (11.5-20.0); WHITE BLOOD COUNT 9.7 Th/cmm (4.8-10.8)
[2017-11-01 06:59] LABS: HEMATOCRIT 27.2 % (41.0-60)
[2017-11-01 07:01] LABS: ANION GAP 9.6 (7.0-16.0); BUN - UREA NITROGEN 22 mg/dL (7-25); CALCIUM SERUM 8.9 mg/dL (8.6-10.3); CARBON DIOXIDE 28.1 mEq/L (21.0-31.0); CHLORIDE 101 mEq/L (98-107); CHOLESTEROL 89 mg/dL (<200); CREATININE - SERUM 3.7 mg/dL (0.7-1.3); GLUCOSE 101 mg/dL (70-105); HDL -HIGH DENSITY LIPOPROTEIN 33 mg/dL (23-92); POTASSIUM SERUM 3.7 mEq/L (3.5-5.1); SODIUM SERUM 135 mEq/L (136-145); TRIGLYCERIDES 78 mg/dL (<150)
[2017-11-01 07:23] LABS: BAND NEUTROPHILE 4 % (0-10); BASOPHIL 0 % (0-3); EOSINOPHIL 0 % (0-5); LYMPHOCYTE 6 % (20-50); MONOCYTE 6 % (2-10); NEUTROPHILS 84 % (40-80)
--- NOTE | 2017-11-01 09:26 | Diagnostic Imaging Report ---
CHEST X-RAY: AP view INDICATION: pain COMPARISON: 05/04/2017 FINDINGS: Right dialysis catheter is stable. Low lung volumes are noted with no focal consolidation or effusions. Chronic lung change are noted. Heart size normal. Atherosclerosis is noted. Retrocardiac density is noted. Degenerative changes of the spine are noted. IMPRESSION: Chronic lung changes with no focal consolidation identified. Atherosclerosis. Retrocardiac density which may be due to a tortuous thoracic aorta. Note, no hiatal hernia was visualized on recent CT examination.
--- NOTE | 2017-11-01 09:51 | Diagnostic Imaging Report ---
CT abdomen and pelvis without intravenous contrast Indication: Abdominal pain and vomiting Comparison: None, Technique: Axial images were obtained from the lung bases to the bilateral proximal femurs without IV contrast. Coronal reconstructions were made. total DLP: 585, CTDI11.4 FINDINGS: Chronic lung changes are seen with probable bronchiectasis the lung bases. Atelectatic and hypoventilatory changes of the lung bases are noted with small right pleural effusion. Assessment of the solid organs is limited due to lack of IV contrast. 2 mm granuloma the right lower liver is noted. No radiopaque gallstones. No focal splenic lesions. No focal pancreatic lesions. Adrenal gland calcifications are seen likely due to old inflammatory infectious process. 3.5 cm left renal cyst and 3.2 cm right renal cyst. There is a 3 mm nonobstructive left renal stone. There are also numerous right renal stones including stones within the collecting systems with combined measurement of 1 cm. No significant hydronephrosis. Bilateral renal atrophy is noted. Mild perinephric inflammatory changes are noted. There is significant enlargement of the prostate gland measuring 6.1 x 6 cm with mass effect upon the urinary bladder. There is soft tissue density along the base of the urinary bladder. Copious stool is seen throughout the colon. Gas-filled loops of bowel are noted. Diverticulosis is noted without evidence of diverticulitis. The appendix is not visualized. Heavy atherosclerotic vascular disease is seen with focal aneurysmal dilatation of the infrarenal abdominal aorta measuring up to 4 cm. No evidence of free abdominal fluid or free air. Advanced degenerative changes of the spine are noted with multilevel bridging osteophytic spurs and diffuse and plates chronic changes. There is evidence of right femoral fracture fixation. IMPRESSION: Heavy atherosclerotic vascular disease. There is focal aneurysmal dilatation of distal abdominal aorta asymmetric to the anterior left side measuring up to 4 cm. No free fluid or surrounding inflammatory changes. Please correlate with clinical history and old exams. Follow-up CT, preferably angiogram, would provide for additional detail and assessment. Numerous right-sided renal calculi including stones within the right renal collecting system measuring up to 1 cm. A 2 mm left renal stone is noted. No hydronephrosis. Bilateral perinephric inflammatory changes of bilateral renal atrophy is also noted. Bilateral renal cysts. Markedly enlarged prostate gland with mass effect upon the base of the urinary bladder. Soft tissue density along the base of the urinary bladder is probably secondary to mass affect from patient's prominent prostate gland and less likely a urinary bladder lesion. Clinical correlation is recommended. Diverticulosis without evidence of diverticulitis. Copious stool throughout the colon gas-filled loops of bowel. Advanced degenerative changes of the spine. Postsurgical changes right femur Bibasal atelectasis and including passive atelectatic consolidative changes and small right pleural effusion.
[2017-11-01] MEDS: Pantoprazole 40 mg EC Tab PO SCH (10:47)
[2017-11-01] MEDS: Aspirin 81mg Chewable Tab PO SCH (10:47)
[2017-11-01] MEDS: Ferrous Sulfate 325 MG TAB PO SCH ×3 (10:47→17:37)
--- NOTE | 2017-11-01 11:32 | History & Physical ---
ADMIT DATE: 11/01/2017 The patient is well-known to me. The patient from [facility]. Apparently, the patient known to have history of CVA in the past and has hemiplegia, also has a history of chronic renal failure. He has been on dialysis. Apparently, the patient developed fever, chills, rigors, and high temperature. He was found to have infection, sepsis, admitted. The patient complains of fever and chills. No chest pain, no shortness of breath, no other problem. REVIEW OF SYSTEMS: Otherwise, negative. PAST MEDICAL HISTORY: Hypertension, history of diabetes, history of CVA, history of ESRD, history of dementia. FAMILY HISTORY: Unremarkable. SOCIAL HISTORY: Nonsmoker, nondrinker. The patient lives in a [facility]. The patient also had a history of ESRD, history of depression, history of psychiatric problems including dementia. PHYSICAL EXAMINATION: GENERAL: Awake, alert. VITAL SIGNS: Noted. HEAD: Normal. ENT: Normal. NECK: Supple, nontender. LUNGS: Clear. CARDIOVASCULAR SYSTEM: S1, S2 heard. ABDOMEN: Soft. Right-sided spastic paralysis. LABORATORY DATA: White count 11.3. The BUN and creatinine was normal. Electrolytes showed renal failure. CAT scan was done, showed right pleural effusion, left basilar infiltrate and the EKG showed sinus tachycardia. DIAGNOSES: Sinus tachycardia, sepsis, ____, left lower lobe pneumonia, history of aortic aneurysm, left pleural effusion, renal disease, end-stage renal disease, on dialysis, status post cerebrovascular accident, right-sided spastic paralysis. PLAN: The patient is being admitted and I will follow the patient. I will have a ____ the patient. I will have Dr. Frankel see the patient as well as I will have Dr. Steve Soliman, ID doctor see the patient. I will follow the patient. JOB# [id number]
[2017-11-01] MEDS ORDERED: Albumin 25% 25gm/100mL 50 GM/200 ML BTL IV ONE ×2 (13:40→15:58)
[2017-11-01] MEDS: POLYETHYLENE GLYCOL 3350 17 GM PACK PO SCH (13:57)
[2017-11-01] MEDS ORDERED: Sodium Chloride 0.9% 250 ML IV ONE (16:06)
[2017-11-01] MEDS ORDERED: Norepinephrine 4 mg/4mL Vial IV ONE (16:12)
--- NOTE | 2017-11-01 20:17 | Consultation ---
Consult Note - Consult Note Service Date: 11/01/17 Referring Physician: Farheen Wiggins Consult Note: PHYSICIAN Consultation Note: Date of Admission: 10/31/17 Purpose of Consultation: Sepsis septic shock Chief Complaint: Patient ANDRE REES JR was admitted to location Intensive Care Unit with PNEUMONIA,SEPSIS. 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 Patient denies any abdomen pain on the cough or shortness of breath. He also had vomiting 1 episode yesterday. On initial evaluation, his temperature was 1 and 1.6 today Fahrenheit and WBC count was 11,300 with neutrophil 87.5%. His blood pressure dropped and required albumin and Levophed. Initially patient was admitted to MedSurg unit. As his blood pressure dropped today he was transferred to the ICU. 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 through permacath in right upper chest, hypertension, diabetes mellitus type 2, CVA, dementia, Parkinson disease Allergies Allergy/AdvReac Type Severity Reaction Status Date / Time No Known Allergies Allergy Verified 10/31/17 21:13 Vital Signs Temp 99.1 F 11/01/17 15:44 Pulse 97 11/01/17 19:37 Resp 14 11/01/17 19:37 BP 84/50 11/01/17 19:00 Pulse Ox 99 11/01/17 19:37 Intake & Output 11/01/17 11/01/17 11/02/17 06:59 18:59 06:59 Intake Total 300 103.086 200 Balance 300 103.086 200 Weight (lbs) 66.82 kg 66.82 kg Intake: Intake, IV Amount 300 103.086 Norepinephrine 4 mg In 53.086 Dextrose 5% 250 ml @ Per Protocol IV TITR PRN Rx#: [id number] Piperacillin Sodium/ 50 50 Tazobact 2.25 gm In Sodium Chloride 0.9% 50 ml @ 100 mls/hr IV Q8HR [facility] Rx#:[id number] Vancomycin HCl 1 gm In 250 Sodium Chloride 0.9% 250 ml @ 165 mls/hr IV ONCE ONE Rx#:[id number] Oral 200 Other: # Voids 2 1 # Bowel Movements 0 Weight Source Bedscale Bedscale Laboratory Results - last 24 hr 10/31/17 10/31/17 10/31/17 21:40 21:40 21:40 WBC 11.3 H RBC 3.61 L Hgb 11.3 L Hct 33.8 L MCV 93.4 MCH 31.3 H MCHC Differential 33.5 RDW 13.4 Plt Count 169 MPV 7.2 Add Manual Diff Neutrophils % 87.5 H Band Neutrophils % Lymphocytes % 7.5 L Monocytes % 4.5 Eosinophils % 0.2 Basophils % 0.3 Neutrophils (Manual) Not Reportable Lymphocytes Monocytes Eosinophils Basophils PT 11.0 INR 1.06 Sodium 135 L Potassium 3.1 L Chloride 96 L Carbon Dioxide 28.9 Anion Gap 13.2 BUN 19 Creatinine 2.9 H Est GFR ( Amer) TNP Est GFR (Non-Af Amer) TNP BUN/Creatinine Ratio 6.6 Glucose 101 Whole Bld Lactic Acid Calcium 9.8 Total Bilirubin 0.6 AST 38 ALT 31 Alkaline Phosphatase 109 H Troponin I Total Protein 7.1 Albumin 3.4 L Globulin 3.7 Albumin/Globulin Ratio 0.9 L Triglycerides Cholesterol LDL Cholesterol Direct HDL Cholesterol TSH Random Vancomycin 10/31/17 10/31/17 11/01/17 21:40 21:40 06:04 WBC 9.7 RBC 2.91 L Hgb 9.3 L Hct 27.2 L D MCV 93.3 MCH 32.1 H MCHC Differential 34.4 RDW 13.4 Plt Count 125 L MPV 7.4 Add Manual Diff YES Neutrophils % [employer] Band Neutrophils % 4 Lymphocytes % [employer] Monocytes % [employer] Eosinophils % [employer] Basophils % [employer] Neutrophils (Manual) 84 H Lymphocytes 6 L Monocytes 6 Eosinophils 0 Basophils 0 PT INR Sodium Potassium Chloride Carbon Dioxide Anion Gap BUN Creatinine Est GFR ( Amer) Est GFR (Non-Af Amer) BUN/Creatinine Ratio Glucose Whole Bld Lactic Acid Calcium Total Bilirubin AST ALT Alkaline Phosphatase Troponin I 0.04 Total Protein Albumin Globulin Albumin/Globulin Ratio Triglycerides Cholesterol LDL Cholesterol Direct HDL Cholesterol TSH 0.58 Random Vancomycin 11/01/17 11/01/17 11/01/17 06:04 06:04 06:04 WBC RBC Hgb Hct MCV MCH MCHC Differential RDW Plt Count MPV Add Manual Diff Neutrophils % Band Neutrophils % Lymphocytes % Monocytes % Eosinophils % Basophils % Neutrophils (Manual) Lymphocytes Monocytes Eosinophils Basophils PT INR Sodium 135 L Potassium 3.7 Chloride 101 Carbon Dioxide 28.1 Anion Gap 9.6 BUN 22 Creatinine 3.7 H Est GFR ( Amer) TNP Est GFR (Non-Af Amer) TNP BUN/Creatinine Ratio 5.9 Glucose 101 Whole Bld Lactic Acid Calcium 8.9 Total Bilirubin AST ALT Alkaline Phosphatase Troponin I Total Protein Albumin Globulin Albumin/Globulin Ratio Triglycerides 78 Cholesterol 89 LDL Cholesterol Direct 39 L HDL Cholesterol 33 TSH 0.55 Random Vancomycin 19.8 11/01/17 17:50 WBC RBC Hgb Hct MCV MCH MCHC Differential RDW Plt Count MPV Add Manual Diff Neutrophils % Band Neutrophils % Lymphocytes % Monocytes % Eosinophils % Basophils % Neutrophils (Manual) Lymphocytes Monocytes Eosinophils Basophils PT INR Sodium Potassium Chloride Carbon Dioxide Anion Gap BUN Creatinine Est GFR ( Amer) Est GFR (Non-Af Amer) BUN/Creatinine Ratio Glucose Whole Bld Lactic Acid 1.36 Calcium Total Bilirubin AST ALT Alkaline Phosphatase Troponin I Total Protein Albumin Globulin Albumin/Globulin Ratio Triglycerides Cholesterol LDL Cholesterol Direct HDL Cholesterol TSH Random Vancomycin Home Medication Medication Instructions Recorded Type Aspirin 81 mg PO DAILY 01/16/17 History Atorvastatin Calcium [Lipitor] 10 mg PO HS 01/16/17 History Citalopram Hydrobromide 20 mg PO DAILY 01/16/17 History [Citalopram HBr] Ferrous Sulfate [Iron] 325 mg PO BID 01/16/17 History Finasteride [Proscar] 5 mg PO DAILY 01/16/17 History Folic Acid [Folate*] 1 mg PO DAILY 01/16/17 History Metoprolol Tartrate 25 mg PO DAILY 01/16/17 History Mirtazapine [Remeron] 15 mg PO HS 01/16/17 History OLANZapine [ZyPREXA] 2.5 mg PO HS 01/16/17 History Pantoprazole Sodium 40 mg PO DAILY 01/16/17 History Tamsulosin HCl [Flomax] 0.4 mg PO BID 01/16/17 History Albumin 25% 25gm/100mL [Albuminar 25 gm IV PRN PRN btl 01/20/17 Rx 25%] Donepezil Hcl [Aricept] 5 mg PO DAILY tab 01/20/17 Rx Heparin Sodium [Heparin*] 5,000 units HD PRN PRN vial 01/20/17 Rx Levetiracetam [Keppra] 500 mg PO BID tab 01/20/17 Rx Lorazepam [Ativan] 1 mg IVP Q6HR PRN vial 01/20/17 Rx Current Medications Generic Name Dose Route Start Last Admin Trade Name Alva PRN Reason Stop Dose Admin Acetaminophen 650 mg 11/01/17 00:38 11/01/17 19:36 Tylenol PO 12/31/17 00:37 650 mg Q4H PRN Administration MILD PAIN 1-3/ FEVER ABOVE 101 Aspirin 81 mg 11/01/17 09:00 11/01/17 10:47 Aspirin Chewable PO 12/31/17 08:59 81 mg DAILY [facility] Administration Atorvastatin Calcium 10 mg 11/01/17 21:00 Lipitor PO 12/31/17 20:59 HS [facility] Protocol Citalopram Hydrobromide 20 mg 11/01/17 09:00 Celexa PO 12/31/17 08:59 DAILY [facility] Protocol Donepezil HCl 5 mg 11/01/17 09:00 11/01/17 10:46 Aricept PO 12/31/17 08:59 5 mg DAILY [facility] Administration Ferrous Sulfate 325 mg 11/01/17 09:00 11/01/17 17:37 Iron PO 12/31/17 08:59 325 mg BID [facility] Administration Finasteride 5 mg 11/01/17 09:00 11/01/17 10:46 Proscar PO 12/31/17 08:59 5 mg DAILY [facility] Administration Protocol Folic Acid 1 mg 11/01/17 09:00 11/01/17 10:47 Folate PO 12/31/17 08:59 1 mg DAILY [facility] Administration Heparin Sodium (Porcine) 5,000 units 11/01/17 08:52 Heparin HD 12/31/17 08:51 PRN PRN DIALYSIS PORTS Piperacillin Sod/Tazobactam 50 mls @ 100 mls/hr 11/01/17 05:00 11/01/17 14:30 Sod 2.25 gm/ Sodium Chloride IV 12/31/17 04:59 Infused Q8HR [facility] Infusion Norepinephrine Bitartrate 4 mg 254 mls @ 0 mls/hr 11/01/17 16:02 11/01/17 18: 59 / Dextrose IV 12/31/17 16:01 6 mcg/min TITR PRN 22.86 mls/hr BP MAINTENANCE (PER PROTOCOL) Titration Protocol Per Protocol Levetiracetam 500 mg 11/01/17 09:00 11/01/17 17:35 Keppra PO 12/31/17 08:59 500 mg BID [facility] Administration Lorazepam 1 mg 11/01/17 08:52 11/01/17 18:24 Ativan IVP 12/31/17 08:51 1 mg Q6HR PRN Administration Seizure Protocol Mirtazapine 15 mg 11/01/17 21:00 Remeron PO 12/31/17 20:59 HS [facility] Protocol Miscellaneous 1 ea 11/01/17 01:04 Vancomycin Iv Per Pharmacy [facility] 12/31/17 01:03 PRN PRN PROTOCOL Olanzapine 2.5 mg 11/01/17 21:00 Zyprexa PO 12/31/17 20:59 HS [facility] Protocol Pantoprazole Sodium 40 mg 11/01/17 09:00 11/01/17 10:47 Protonix PO 12/31/17 08:59 40 mg DAILY [facility] Administration Polyethylene Glycol 17 gm 11/01/17 13:00 11/01/17 13:57 Miralax PO 12/31/17 12:59 17 gm DAILY [facility] Administration Tamsulosin HCl 0.4 mg 11/01/17 09:00 11/01/17 17:35 Flomax PO 12/31/17 08:59 0.4 mg BID [facility] Administration Review of Systems: A 12 point ROS was reviewed with the pertinent positive and negatives noted in the HPI. Social History Smoking Status Smoker, status unknown Family Medical History Family Medical History Start: 11/01/17 00: 26 Freq: Status: Active Protocol: Document 11/01/17 01:24 KALPESH (Rec: 11/01/17 01:24 [id number]) Family Medical History Mother History Unknown Yes Physical Exam: General: Comfortable not in acute distress. HEENT: Head: NC NT. Oral cavity: Moist, pink tongue. Eyes: Pallor is present. No icterus. Pupil PERRLA. EOMI. Neck: Supple, no JVD. Patient has some right-sided the IJ permacath there is no surrounding erythema but it seems that part of the line is out Cardio: S1 and S2 within normal limits regular rhythm. No murmur no gallop. Respiratory: Vesicular breath sound. Abdominal: Soft, nontender nondistended bowel sounds present Genital/Urinary: Deferred Extremities: No Cyanosis no clubbing no edema Neurological: Alert and awake. Oriented 2 from the Speech Is Clear. Assessment: 1. Sepsis. Septic shock. Line sepsis. 2. Pneumonia. 3. 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 4. Diabetes mellitus type 2. 5. Hypertension. Plan: Continue vancomycin and Zosyn. Give albumin and Levophed as needed. Gentamicin IV 1 dose. Sepsis workup. Signed, Steve Soliman M.D. [id number]
[2017-11-01] MEDS: Atorvastatin Calcium 10 MG TAB PO SCH (20:58)
[2017-11-01] MEDS ORDERED: Gentamicin 100mg/100mL Premix Bag IV ONE (22:00)
[2017-11-01] MEDS ORDERED: Gentamicin 80 mg/2mL Vial ONE (22:17)
--- NOTE | 2017-11-02 00:27 | Consultation ---
DATE OF CONSULTATION: 11/01/2017 REASON FOR CONSULTATION: For electrolyte imbalance and fluid management. HISTORY OF PRESENT ILLNESS: This is a 77-year-old male with past medical history of end-stage renal disease, on hemodialysis, who was brought in because of fever. A few hours prior to admission, the patient developed fever of 103.2. He was suddenly brought to the Emergency Room. His temperature at the Emergency Room was 101.6 with a white count of 11.3. Chest x-ray revealed no acute disease. CT scan of the abdomen/pelvis revealed right lower lobe liver granuloma, bilateral renal cysts, right renal stone, but no hydronephrosis, bilateral renal atrophy, BPH, as well as copious amount of stool in the bowel. He denies any fever/chills during dialysis treatment, nausea and vomiting, dysuria, cough, congestion regarding headache, chest pain, shortness of breath. His last dialysis was yesterday. PAST MEDICAL HISTORY: 1. End-stage renal disease, on hemodialysis. 2. Essential hypertension. 3. Status post CVA. 4. GERD. 5. Dyslipidemia. 6. Peripheral neuropathy. 7. Depression. CURRENT MEDICATIONS: He is currently on acetaminophen, aspirin, atorvastatin, ceftriaxone, Celexa, donepezil, ferrous sulfate, finasteride, folate, Keppra, Ativan, metoprolol, mirtazapine, olanzapine, pantoprazole, polyethylene glycol, , vancomycin and Zosyn. ALLERGIES: No known drug allergies. SOCIAL AND FAMILY HISTORY: I was not able to obtain from the patient because he refuses to talk and remains nonverbal. REVIEW OF SYSTEMS: Again, I was not able to decipher directly from the patient because of the same reason. PHYSICAL EXAMINATION: GENERAL: The patient is awake, but not cooperative at the present time, refuses to talk. VITAL SIGNS: His blood pressure is 94/50, pulse is 82, temperature 97.4 degrees. SKIN: Poor turgor, warm. No rash, no jaundice appreciated. HEENT: Head is normocephalic, atraumatic. Eyes, extraocular muscles are intact. Pupils are equal, round and reactive to light and accommodates. Nose, midline nasal septum. Mouth; moist mucosa, poor dentition. NECK: Supple, no adenopathy, no thyromegaly, no bruits. Trachea palpated in the midline. CHEST AND CARDIOVASCULAR SYSTEM: S1 and S2. No rub, murmur nor gallop appreciated. Point of maximal impulse fifth intercostal space, left midclavicular line. No abdominal or femoral bruits appreciated. LUNGS: Equal expansion. No use of accessory muscles. No supraclavicular retractions. Decreased breath sounds, few rhonchi, but no rales nor wheezes appreciated. ABDOMEN: Mildly globular, soft, positive for bowel sounds. No bruits either diastolic or systolic. RECTAL: The patient refused. GENITOURINARY: Normal appearing male genitalia. MUSCULOSKELETAL: No effusions present in his joints. EXTREMITIES: No evidence of any edema, cyanosis nor clubbing with palpable femoral, but unable to fully appreciate popliteal and dorsalis pedis pulses. NEUROLOGIC: The patient is awake, verbal, motor is 5/5. LABORATORY DATA: Labs revealed white count 9.7, hemoglobin 9.3, hematocrit 37.2, platelets 125, polys 87.5%. Sodium is 135, potassium 3.7, chloride 101, bicarb 28, BUN 22, creatinine 3.7. TSH 0.55. IMPRESSION: 1. Fever, possibly urinary tract infection or even line infection. 2. Constipation. 3. End-stage renal disease, on hemodialysis. 4. Essential hypertension with chronic kidney disease. 5. Status post cerebrovascular accident. 6. Gastroesophageal reflux disease. 7. Dyslipidemia. 8. Peripheral neuropathy. 9. Depression. PLAN: 1. Hemodialysis as scheduled. 2. Follow up blood culture x 2 as well as urine C and S. 3. Continue on Rocephin. Thank you Dr. Wiggins for this consult. We will follow the patient closely with you. JOB# [id number]
[2017-11-02 04:35] LABS: % BASOPHILS 0.9 % (0.0-2.0); % EOSINOPHILS 1.6 % (0.0-5.0); % LYMPHOCYTES 9.2 % (20.0-50.0); % MONOCYTES 8.8 % (2.0-10.0); % NEUTROPHILS 79.5 % (40.0-80.0); BASOPHILE ABSOLUTE 0.1 Th/cumm (0-0.2); EOSINOPHILE ABSOLUTE 0.1 Th/cmm (0.1-0.4); HEMATOCRIT 26.2 % (41.0-60); HEMOGLOBIN 8.9 gm/dL (12-16); LYMPHOCYTE ABSOLUTE 0.6 Th/cmm (1.5-3.0); MEAN CELL VOLUME 93.8 fl (80-99); MEAN CORPUSCULAR HEMOGLOBIN 31.7 pg (27.0-31.0); MEAN CORPUSCULAR HGB CONC 33.8 pg (28.0-36.0); MEAN PLATELET VOLUME 7.5 fl; MONOCYTE ABSOLUTE 0.6 Th/cmm (0.3-1.0); NEUTROPHILE ABSOLUTE 5.3 Th/cmm (1.8-8.0); PLATELET COUNT 131 Th/cmm (150-400); RED BLOOD COUNT 2.79 Mil/cmm (3.80-5.80); RED CELL DISTRIBUTION WIDTH 13.2 % (11.5-20.0); WHITE BLOOD COUNT 6.7 Th/cmm (4.8-10.8)
[2017-11-02 05:25] LABS: ANION GAP 13.8 (7.0-16.0); BUN - UREA NITROGEN 34 mg/dL (7-25); CALCIUM SERUM 9.3 mg/dL (8.6-10.3); CARBON DIOXIDE 25.2 mEq/L (21.0-31.0); CHLORIDE 103 mEq/L (98-107); GLUCOSE 112 mg/dL (70-105); SODIUM SERUM 138 mEq/L (136-145)
[2017-11-02] MEDS ORDERED: Norepinephrine 4 mg/4mL Vial IV ONE (06:08)
--- NOTE | 2017-11-02 07:51 | Diagnostic Imaging Report ---
CT scan of the brain without intravenous contrast HISTORY: ALOC Total DLP equals 716 CTDI equals 16.2 Axial sections were obtained from the base of the skull to the vertex. There is prominence/enlargement of the ventricular system size. Associated enlargement of cerebral sulci and subarachnoid cisterns. There is evidence of old left basal ganglia infarct Findings are consistent with changes of generalized cerebral atrophy. No acute parenchymal abnormalities. No acute cerebral hemorrhage. Hypodensity is seen within the supratentorial white matter regions without mass effect. The findings may be associated with chronic small vessel ischemic disease. No extra-axial masses or abnormal fluid collections. There is evidence of sinusitis. IMPRESSION: 1. No acute abnormalities, only of basal ganglia infarct 2. Cerebral atrophy 3. Supratentorial white matter changes that may reflect chronic small vessel ischemic disease
--- NOTE | 2017-11-02 09:24 | General Progress Note ---
Subjective - Review of Systems Service Date: 11/02/17 Events since last encounter: right IJ has eroded thru skin, needs removal Plan: replace above with Permcath into left IJ or Subclavian and place permanent shunt or fistula in right arm Conservator to be notified Objective - Results Result Diagrams: 11/02/17 04:10 11/02/17 04:10 Recent Labs: Laboratory Last Values WBC 6.7 Th/cmm (4.8-10.8) 11/02/17 04:10 RBC 2.79 Mil/cmm (3.80-5.80) L 11/02/17 04:10 Hgb 8.9 gm/dL (12-16) L 11/02/17 04:10 Hct 26.2 % (41.0-60) L 11/02/17 04:10 MCV 93.8 fl (80-99) 11/02/17 04:10 MCH 31.7 pg (27.0-31.0) H 11/02/17 04:10 MCHC Differential 33.8 pg (28.0-36.0) 11/02/17 04:10 RDW 13.2 % (11.5-20.0) 11/02/17 04:10 Plt Count 131 Th/cmm (150-400) L 11/02/17 04:10 MPV 7.5 fl 11/02/17 04:10 Add Manual Diff YES 11/01/17 06:04 Neutrophils % 79.5 % (40.0-80.0) 11/02/17 04:10 Band Neutrophils % 4 % (0-10) 11/01/17 06:04 Lymphocytes % 9.2 % (20.0-50.0) L 11/02/17 04:10 Monocytes % 8.8 % (2.0-10.0) 11/02/17 04:10 Eosinophils % 1.6 % (0.0-5.0) 11/02/17 04:10 Basophils % 0.9 % (0.0-2.0) 11/02/17 04:10 Neutrophils (Manual) 84 % (40-80) H 11/01/17 06:04 Lymphocytes 6 % (20-50) L 11/01/17 06:04 Monocytes 6 % (2-10) 11/01/17 06:04 Eosinophils 0 % (0-5) 11/01/17 06:04 Basophils 0 % (0-3) 11/01/17 06:04 PT 11.0 SECONDS (9.5-11.5) 10/31/17 21:40 INR 1.06 (0.5-1.4) 10/31/17 21:40 Sodium 138 mEq/L (136-145) 11/02/17 04:10 Potassium 4.0 mEq/L (3.5-5.1) 11/02/17 04:10 Chloride 103 mEq/L (98-107) 11/02/17 04:10 Carbon Dioxide 25.2 mEq/L (21.0-31.0) 11/02/17 04:10 Anion Gap 13.8 (7.0-16.0) 11/02/17 04:10 BUN 34 mg/dL (7-25) H 11/02/17 04:10 Creatinine 5.0 mg/dL (0.7-1.3) H* 11/02/17 04:10 Est GFR ( Amer) TNP 11/02/17 04:10 Est GFR (Non-Af Amer) TNP 11/02/17 04:10 BUN/Creatinine Ratio 6.8 11/02/17 04:10 Glucose 112 mg/dL (70-105) H 11/02/17 04:10 Whole Bld Lactic Acid 1.36 mmol/L (0.60-1.99) 11/01/17 17:50 Calcium 9.3 mg/dL (8.6-10.3) 11/02/17 04:10 Total Bilirubin 0.6 mg/dL (0.3-1.0) 10/31/17 21:40 AST 38 U/L (13-39) 10/31/17 21:40 ALT 31 U/L (7-52) 10/31/17 21:40 Alkaline Phosphatase 109 U/L (34-104) H 10/31/17 21:40 Troponin I 0.04 ng/mL (0.01-0.05) 10/31/17 21:40 Total Protein 7.1 gm/dL (6.0-8.3) 10/31/17 21:40 Albumin 3.4 gm/dL (4.2-5.5) L 10/31/17 21:40 Globulin 3.7 gm/dL 10/31/17 21:40 Albumin/Globulin Ratio 0.9 (1.0-1.8) L 10/31/17 21:40 Triglycerides 78 mg/dL (<150) 11/01/17 06:04 Cholesterol 89 mg/dL (<200) 11/01/17 06:04 LDL Cholesterol Direct 39 mg/dL (75-193) L 11/01/17 06:04 HDL Cholesterol 33 mg/dL (23-92) 11/01/17 06:04 TSH 0.55 uIU/ml (0.34-5.60) 11/01/17 06:04 Random Vancomycin 13.5 ug/mL (5.0-40.0) 11/02/17 04:10 - Physical Exam Vitals and I&O: Vital Signs Temp 98.4 F 11/02/17 08:00 Pulse 58 11/02/17 08:30 Resp 12 11/02/17 08:00 BP 98/41 11/02/17 08:30 Pulse Ox 97 11/02/17 08:00 Intake & Output 11/01/17 11/02/17 11/02/17 18:59 06:59 18:59 Intake Total 103.086 502.057 100 Balance 103.086 502.057 100 Weight (lbs) 66.82 kg 67.132 kg Intake: Intake, IV Amount 103.086 302.057 Norepinephrine 4 mg In 53.086 202.057 Dextrose 5% 250 ml @ Per Protocol IV TITR PRN Rx#: [id number] Piperacillin Sodium/ 50 100 Tazobact 2.25 gm In Sodium Chloride 0.9% 50 ml @ 100 mls/hr IV Q8HR [facility] Rx#:[id number] Oral 200 100 Other: # Voids 1 2 # Bowel Movements 0 0 Weight Source Bedscale Bedscale Active Medications: Current Medications Acetaminophen (Tylenol) 650 mg PO Q4H PRN PRN Reason: MILD PAIN 1-3/ FEVER ABOVE 101 Stop: 12/31/17 00:37 Last Admin: 11/01/17 19:36 Dose: 650 mg Aspirin (Aspirin Chewable) 81 mg PO DAILY [facility] Stop: 12/31/17 08:59 Last Admin: 11/01/17 10:47 Dose: 81 mg Atorvastatin Calcium (Lipitor) 10 mg PO HS [facility]EST; Protocol Stop: 12/31/17 20:59 Last Admin: 11/01/17 20:58 Dose: 10 mg Citalopram Hydrobromide (Celexa) 20 mg PO DAILY [facility]; Protocol Stop: 12/31/17 08:59 Donepezil HCl (Aricept) 5 mg PO DAILY [facility] Stop: 12/31/17 08:59 Last Admin: 11/01/17 10:46 Dose: 5 mg Ferrous Sulfate (Iron) 325 mg PO BID [facility] Stop: 12/31/17 08:59 Last Admin: 11/01/17 17:37 Dose: 325 mg Finasteride (Proscar) 5 mg PO DAILY [facility]; Protocol Stop: 12/31/17 08:59 Last Admin: 11/01/17 10:46 Dose: 5 mg Folic Acid (Folate) 1 mg PO DAILY [facility] Stop: 12/31/17 08:59 Last Admin: 11/01/17 10:47 Dose: 1 mg Heparin Sodium (Porcine) (Heparin) 5,000 units HD PRN PRN PRN Reason: DIALYSIS PORTS Stop: 12/31/17 08:51 Piperacillin Sod/Tazobactam (Sod 2.25 gm/ Sodium Chloride) 50 mls @ 100 mls/hr IV Q8HR [facility] Stop: 12/31/17 04:59 Last Infusion: 11/02/17 05:20 Dose: Infused Norepinephrine Bitartrate 4 mg (/ Dextrose) 254 mls @ 0 mls/hr IV TITR PRN; Protocol PRN Reason: BP MAINTENANCE (PER PROTOCOL) Stop: 12/31/17 16:01 Last Titration: 11/02/17 06:18 Dose: 4 mcg/min, 15.24 mls/hr Vancomycin HCl 1 gm/ Sodium (Chloride) 250 mls @ 165 mls/hr IV ONCE ONE Stop: 11/02/17 11:30 Levetiracetam (Keppra) 500 mg PO BID [facility] Stop: 12/31/17 08:59 Last Admin: 11/01/17 17:35 Dose: 500 mg Lorazepam (Ativan) 1 mg IVP Q6HR PRN; Protocol PRN Reason: Seizure Stop: 12/31/17 08:51 Last Admin: 11/01/17 18:24 Dose: 1 mg Mirtazapine (Remeron) 15 mg PO HS [facility]; Protocol Stop: 12/31/17 20:59 Miscellaneous (Vancomycin Iv Per Pharmacy) 1 ea PRN PRN PRN Reason: PROTOCOL Stop: 12/31/17 01:03 Miscellaneous (Gentamicin Iv Per Pharmacy) 1 [facility] PRN PRN PRN Reason: PROTOCOL Stop: 12/31/17 20:31 Olanzapine (Zyprexa) 2.5 mg PO HS [facility]; Protocol Stop: 12/31/17 20:59 Pantoprazole Sodium (Protonix) 40 mg PO DAILY [facility] Stop: 12/31/17 08:59 Last Admin: 11/01/17 10:47 Dose: 40 mg Polyethylene Glycol (Miralax) 17 gm PO DAILY [facility] Stop: 12/31/17 12:59 Last Admin: 11/01/17 13:57 Dose: 17 gm Tamsulosin HCl (Flomax) 0.4 mg PO BID [facility] Stop: 12/31/17 08:59 Last Admin: 11/01/17 17:35 Dose: 0.4 mg - Procedures Procedures: Procedures Procedure Code Date INSERTION OF INFUSION DEV INTO SUP VENA CAVA, PERC APPROACH [id number] 01/16/17 PERFORMANCE OF URINARY FILTRATION, <6 HRS/DAY [id number] 09/01/17 ULTRASONOGRAPHY OF SUPERIOR VENA CAVA, GUIDANCE [id number] 01/16/17
[2017-11-02] MEDS: POLYETHYLENE GLYCOL 3350 17 GM PACK PO SCH (09:41)
[2017-11-02] MEDS: Pantoprazole 40 mg EC Tab PO SCH (09:41)
[2017-11-02] MEDS: Aspirin 81mg Chewable Tab PO SCH (09:42)
[2017-11-02] MEDS: Ferrous Sulfate 325 MG TAB PO SCH ×2 (09:43→16:10)
[2017-11-02] MEDS ORDERED: Probiotic Screen MC PRN (12:29)
--- NOTE | 2017-11-02 12:34 | Infectious Disease Prog Note ---
Infectious Disease Subjective - Review of Systems Service Date: 11/02/17 Subjective: There is no new change. Remains on Levophed. Blood cultures accompanied cocci. Infectious Disease Objective - Results Result Diagrams: 11/03/17 04:05 11/03/17 04:05 Recent Labs: Laboratory Last Values WBC 6.7 Th/cmm (4.8-10.8) 11/02/17 04:10 RBC 2.79 Mil/cmm (3.80-5.80) L 11/02/17 04:10 Hgb 8.9 gm/dL (12-16) L 11/02/17 04:10 Hct 26.2 % (41.0-60) L 11/02/17 04:10 MCV 93.8 fl (80-99) 11/02/17 04:10 MCH 31.7 pg (27.0-31.0) H 11/02/17 04:10 MCHC Differential 33.8 pg (28.0-36.0) 11/02/17 04:10 RDW 13.2 % (11.5-20.0) 11/02/17 04:10 Plt Count 131 Th/cmm (150-400) L 11/02/17 04:10 MPV 7.5 fl 11/02/17 04:10 Add Manual Diff YES 11/01/17 06:04 Neutrophils % 79.5 % (40.0-80.0) 11/02/17 04:10 Band Neutrophils % 4 % (0-10) 11/01/17 06:04 Lymphocytes % 9.2 % (20.0-50.0) L 11/02/17 04:10 Monocytes % 8.8 % (2.0-10.0) 11/02/17 04:10 Eosinophils % 1.6 % (0.0-5.0) 11/02/17 04:10 Basophils % 0.9 % (0.0-2.0) 11/02/17 04:10 Neutrophils (Manual) 84 % (40-80) H 11/01/17 06:04 Lymphocytes 6 % (20-50) L 11/01/17 06:04 Monocytes 6 % (2-10) 11/01/17 06:04 Eosinophils 0 % (0-5) 11/01/17 06:04 Basophils 0 % (0-3) 11/01/17 06:04 PT 11.0 SECONDS (9.5-11.5) 10/31/17 21:40 INR 1.06 (0.5-1.4) 10/31/17 21:40 Sodium 138 mEq/L (136-145) 11/02/17 04:10 Potassium 4.0 mEq/L (3.5-5.1) 11/02/17 04:10 Chloride 103 mEq/L (98-107) 11/02/17 04:10 Carbon Dioxide 25.2 mEq/L (21.0-31.0) 11/02/17 04:10 Anion Gap 13.8 (7.0-16.0) 11/02/17 04:10 BUN 34 mg/dL (7-25) H 11/02/17 04:10 Creatinine 5.0 mg/dL (0.7-1.3) H* 11/02/17 04:10 Est GFR ( Amer) TNP 11/02/17 04:10 Est GFR (Non-Af Amer) TNP 11/02/17 04:10 BUN/Creatinine Ratio 6.8 11/02/17 04:10 Glucose 112 mg/dL (70-105) H 11/02/17 04:10 Whole Bld Lactic Acid 1.36 mmol/L (0.60-1.99) 11/01/17 17:50 Calcium 9.3 mg/dL (8.6-10.3) 11/02/17 04:10 Total Bilirubin 0.6 mg/dL (0.3-1.0) 10/31/17 21:40 AST 38 U/L (13-39) 10/31/17 21:40 ALT 31 U/L (7-52) 10/31/17 21:40 Alkaline Phosphatase 109 U/L (34-104) H 10/31/17 21:40 Troponin I 0.04 ng/mL (0.01-0.05) 10/31/17 21:40 Total Protein 7.1 gm/dL (6.0-8.3) 10/31/17 21:40 Albumin 3.4 gm/dL (4.2-5.5) L 10/31/17 21:40 Globulin 3.7 gm/dL 10/31/17 21:40 Albumin/Globulin Ratio 0.9 (1.0-1.8) L 10/31/17 21:40 Triglycerides 78 mg/dL (<150) 11/01/17 06:04 Cholesterol 89 mg/dL (<200) 11/01/17 06:04 LDL Cholesterol Direct 39 mg/dL (75-193) L 11/01/17 06:04 HDL Cholesterol 33 mg/dL (23-92) 11/01/17 06:04 TSH 0.55 uIU/ml (0.34-5.60) 11/01/17 06:04 Random Vancomycin 13.5 ug/mL (5.0-40.0) 11/02/17 04:10 - Physical Exam Vitals and I&O: Vital Signs Temp 98.4 F 11/02/17 08:00 Pulse 63 11/02/17 11:45 Resp 18 11/02/17 11:00 BP 86/50 11/02/17 11:45 Pulse Ox 100 11/02/17 11:00 Intake & Output 11/01/17 11/02/17 11/02/17 18:59 06:59 18:59 Intake Total 103.086 502.057 100 Balance 103.086 502.057 100 Weight (lbs) 66.82 kg 67.132 kg Intake: Intake, IV Amount 103.086 302.057 Norepinephrine 4 mg In 53.086 202.057 Dextrose 5% 250 ml @ Per Protocol IV TITR PRN Rx#: [id number] Piperacillin Sodium/ 50 100 Tazobact 2.25 gm In Sodium Chloride 0.9% 50 ml @ 100 mls/hr IV Q8HR [facility] Rx#:[id number] Oral 200 100 Other: # Voids 1 2 # Bowel Movements 0 0 Weight Source Bedscale Bedscale Active Medications: Current Medications Acetaminophen (Tylenol) 650 mg PO Q4H PRN PRN Reason: MILD PAIN 1-3/ FEVER ABOVE 101 Stop: 12/31/17 00:37 Last Admin: 11/01/17 19:36 Dose: 650 mg Aspirin (Aspirin Chewable) 81 mg PO DAILY [facility] Stop: 12/31/17 08:59 Last Admin: 11/02/17 09:42 Dose: 81 mg Atorvastatin Calcium (Lipitor) 10 mg PO HS [facility]; Protocol Stop: 12/31/17 20:59 Last Admin: 11/01/17 20:58 Dose: 10 mg Citalopram Hydrobromide (Celexa) 20 mg PO DAILY [facility]; Protocol Stop: 12/31/17 08:59 Donepezil HCl (Aricept) 5 mg PO DAILY [facility] Stop: 12/31/17 08:59 Last Admin: 11/02/17 09:41 Dose: 5 mg Ferrous Sulfate (Iron) 325 mg PO BID [facility] Stop: 12/31/17 08:59 Last Admin: 11/02/17 09:43 Dose: 325 mg Finasteride (Proscar) 5 mg PO DAILY [facility]; Protocol Stop: 12/31/17 08:59 Last Admin: 11/02/17 09:47 Dose: 5 mg Folic Acid (Folate) 1 mg PO DAILY [facility] Stop: 12/31/17 08:59 Last Admin: 11/02/17 09:43 Dose: 1 mg Heparin Sodium (Porcine) (Heparin) 5,000 units HD PRN PRN PRN Reason: DIALYSIS PORTS Stop: 12/31/17 08:51 Piperacillin Sod/Tazobactam (Sod 2.25 gm/ Sodium Chloride) 50 mls @ 100 mls/hr IV Q8HR [facility] Stop: 12/31/17 04:59 Last Infusion: 11/02/17 05:20 Dose: Infused Norepinephrine Bitartrate 4 mg (/ Dextrose) 254 mls @ 0 mls/hr IV TITR PRN; Protocol PRN Reason: BP MAINTENANCE (PER PROTOCOL) Stop: 12/31/17 16:01 Last Titration: 11/02/17 06:18 Dose: 4 mcg/min, 15.24 mls/hr Lactobacillus Rhamnosus (Culturelle 15b) 1 each PO DAILY [facility] Stop: 01/01/18 13:59 Levetiracetam (Keppra) 500 mg PO BID [facility] Stop: 12/31/17 08:59 Last Admin: 11/02/17 09:41 Dose: 500 mg Lorazepam (Ativan) 1 mg IVP Q6HR PRN; Protocol PRN Reason: Seizure Stop: 12/31/17 08:51 Last Admin: 11/01/17 18:24 Dose: 1 mg Mirtazapine (Remeron) 15 mg PO HS [facility]; Protocol Stop: 12/31/17 20:59 Miscellaneous (Vancomycin Iv Per Pharmacy) 1 ea [facility] PRN PRN PRN Reason: PROTOCOL Stop: 12/31/17 01:03 Miscellaneous (Probiotic Screen) 1 [facility] PRN PRN PRN Reason: PROTOCOL Stop: 01/01/18 12:28 Mupirocin (Bactroban Oint) 1 appl NS BID [facility] Stop: 11/07/17 09:01 Olanzapine (Zyprexa) 2.5 mg PO HS [facility]; Protocol Stop: 12/31/17 20:59 Pantoprazole Sodium (Protonix) 40 mg PO DAILY [facility] Stop: 12/31/17 08:59 Last Admin: 11/02/17 09:41 Dose: 40 mg Polyethylene Glycol (Miralax) 17 gm PO DAILY [facility] Stop: 12/31/17 12:59 Last Admin: 11/02/17 09:41 Dose: 17 gm Tamsulosin HCl (Flomax) 0.4 mg PO BID [facility] Stop: 12/31/17 08:59 Last Admin: 11/02/17 09:41 Dose: 0.4 mg General: no acute distress, well developed, well nourished HEENT: atraumatic, normocephalic, PERRLA, EOMI Neck: supple, no thyromegaly, no lymphadenopathy, no rigid Cardiovascular: S1S2, regular, systolic murmur, other (right intrajugular permacath) Lungs: clear to auscultation bilaterally, clear to percussion, wheeze Abdomen: soft, no tender, no distended, no hepatomegaly, no splenomegaly Extremities: no cyanosis, no clubbing, no edema Neurological: awake, alert, oriented Skin: intact - Procedures Procedures: Procedures Procedure Code Date INSERTION OF INFUSION DEV INTO SUP VENA CAVA, PERC APPROACH [id number] 01/16/17 PERFORMANCE OF URINARY FILTRATION, <6 HRS/DAY [id number] 09/01/17 ULTRASONOGRAPHY OF SUPERIOR VENA CAVA, GUIDANCE [id number] 01/16/17 Infectious Disease Assmt/Plan - Assessment Assessment: 1. Sepsis. Septic shock. Pneumonia versus line sepsis. Staph sepsis. 2. Pneumonia. 3. 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 4. Diabetes mellitus type 2. 5. Hypertension. - Plan Plan: Continue same management. Antibiotic-dang vancomycin IV and Zosyn.
--- NOTE | 2017-11-02 13:39 | General Progress Note ---
Subjective - Review of Systems Service Date: 11/02/17 Subjective: sleeping, arousable, comfortable Objective - Results Result Diagrams: 11/02/17 04:10 11/02/17 04:10 Recent Labs: Laboratory Last Values WBC 6.7 Th/cmm (4.8-10.8) 11/02/17 04:10 RBC 2.79 Mil/cmm (3.80-5.80) L 11/02/17 04:10 Hgb 8.9 gm/dL (12-16) L 11/02/17 04:10 Hct 26.2 % (41.0-60) L 11/02/17 04:10 MCV 93.8 fl (80-99) 11/02/17 04:10 MCH 31.7 pg (27.0-31.0) H 11/02/17 04:10 MCHC Differential 33.8 pg (28.0-36.0) 11/02/17 04:10 RDW 13.2 % (11.5-20.0) 11/02/17 04:10 Plt Count 131 Th/cmm (150-400) L 11/02/17 04:10 MPV 7.5 fl 11/02/17 04:10 Add Manual Diff YES 11/01/17 06:04 Neutrophils % 79.5 % (40.0-80.0) 11/02/17 04:10 Band Neutrophils % 4 % (0-10) 11/01/17 06:04 Lymphocytes % 9.2 % (20.0-50.0) L 11/02/17 04:10 Monocytes % 8.8 % (2.0-10.0) 11/02/17 04:10 Eosinophils % 1.6 % (0.0-5.0) 11/02/17 04:10 Basophils % 0.9 % (0.0-2.0) 11/02/17 04:10 Neutrophils (Manual) 84 % (40-80) H 11/01/17 06:04 Lymphocytes 6 % (20-50) L 11/01/17 06:04 Monocytes 6 % (2-10) 11/01/17 06:04 Eosinophils 0 % (0-5) 11/01/17 06:04 Basophils 0 % (0-3) 11/01/17 06:04 PT 11.0 SECONDS (9.5-11.5) 10/31/17 21:40 INR 1.06 (0.5-1.4) 10/31/17 21:40 Sodium 138 mEq/L (136-145) 11/02/17 04:10 Potassium 4.0 mEq/L (3.5-5.1) 11/02/17 04:10 Chloride 103 mEq/L (98-107) 11/02/17 04:10 Carbon Dioxide 25.2 mEq/L (21.0-31.0) 11/02/17 04:10 Anion Gap 13.8 (7.0-16.0) 11/02/17 04:10 BUN 34 mg/dL (7-25) H 11/02/17 04:10 Creatinine 5.0 mg/dL (0.7-1.3) H* 11/02/17 04:10 Est GFR ( Amer) TNP 11/02/17 04:10 Est GFR (Non-Af Amer) TNP 11/02/17 04:10 BUN/Creatinine Ratio 6.8 11/02/17 04:10 Glucose 112 mg/dL (70-105) H 11/02/17 04:10 Whole Bld Lactic Acid 1.36 mmol/L (0.60-1.99) 11/01/17 17:50 Calcium 9.3 mg/dL (8.6-10.3) 11/02/17 04:10 Total Bilirubin 0.6 mg/dL (0.3-1.0) 10/31/17 21:40 AST 38 U/L (13-39) 10/31/17 21:40 ALT 31 U/L (7-52) 10/31/17 21:40 Alkaline Phosphatase 109 U/L (34-104) H 10/31/17 21:40 Troponin I 0.04 ng/mL (0.01-0.05) 10/31/17 21:40 Total Protein 7.1 gm/dL (6.0-8.3) 10/31/17 21:40 Albumin 3.4 gm/dL (4.2-5.5) L 10/31/17 21:40 Globulin 3.7 gm/dL 10/31/17 21:40 Albumin/Globulin Ratio 0.9 (1.0-1.8) L 10/31/17 21:40 Triglycerides 78 mg/dL (<150) 11/01/17 06:04 Cholesterol 89 mg/dL (<200) 11/01/17 06:04 LDL Cholesterol Direct 39 mg/dL (75-193) L 11/01/17 06:04 HDL Cholesterol 33 mg/dL (23-92) 11/01/17 06:04 TSH 0.55 uIU/ml (0.34-5.60) 11/01/17 06:04 Random Vancomycin 13.5 ug/mL (5.0-40.0) 11/02/17 04:10 - Physical Exam Vitals and I&O: Vital Signs Temp 97.9 F 11/02/17 12:00 Pulse 59 11/02/17 13:30 Resp 17 11/02/17 13:00 BP 91/52 11/02/17 13:30 Pulse Ox 100 11/02/17 13:00 Intake & Output 11/01/17 11/02/17 11/02/17 18:59 06:59 18:59 Intake Total 103.086 502.057 100 Balance 103.086 502.057 100 Weight (lbs) 66.82 kg 67.132 kg Intake: Intake, IV Amount 103.086 302.057 Norepinephrine 4 mg In 53.086 202.057 Dextrose 5% 250 ml @ Per Protocol IV TITR PRN Rx#: [id number] Piperacillin Sodium/ 50 100 Tazobact 2.25 gm In Sodium Chloride 0.9% 50 ml @ 100 mls/hr IV Q8HR [facility] Rx#:[id number] Oral 200 100 Other: # Voids 1 2 # Bowel Movements 0 0 Weight Source Bedscale Bedscale Active Medications: Current Medications Acetaminophen (Tylenol) 650 mg PO Q4H PRN PRN Reason: MILD PAIN 1-3/ FEVER ABOVE 101 Stop: 12/31/17 00:37 Last Admin: 11/01/17 19:36 Dose: 650 mg Aspirin (Aspirin Chewable) 81 mg PO DAILY [facility] Stop: 12/31/17 08:59 Last Admin: 11/02/17 09:42 Dose: 81 mg Atorvastatin Calcium (Lipitor) 10 mg PO HS [facility]; Protocol Stop: 12/31/17 20:59 Last Admin: 11/01/17 20:58 Dose: 10 mg Citalopram Hydrobromide (Celexa) 20 mg PO DAILY [facility]; Protocol Stop: 12/31/17 08:59 Donepezil HCl (Aricept) 5 mg PO DAILY [facility] Stop: 12/31/17 08:59 Last Admin: 11/02/17 09:41 Dose: 5 mg Ferrous Sulfate (Iron) 325 mg PO BID [facility] Stop: 12/31/17 08:59 Last Admin: 11/02/17 09:43 Dose: 325 mg Finasteride (Proscar) 5 mg PO DAILY [facility]; Protocol Stop: 12/31/17 08:59 Last Admin: 11/02/17 09:47 Dose: 5 mg Folic Acid (Folate) 1 mg PO DAILY [facility] Stop: 12/31/17 08:59 Last Admin: 11/02/17 09:43 Dose: 1 mg Heparin Sodium (Porcine) (Heparin) 5,000 units HD PRN PRN PRN Reason: DIALYSIS PORTS Stop: 12/31/17 08:51 Piperacillin Sod/Tazobactam (Sod 2.25 gm/ Sodium Chloride) 50 mls @ 100 mls/hr IV Q8HR [facility] Stop: 12/31/17 04:59 Last Admin: 11/02/17 12:56 Dose: 100 mls/hr Norepinephrine Bitartrate 4 mg (/ Dextrose) 254 mls @ 0 mls/hr IV TITR PRN; Protocol PRN Reason: BP MAINTENANCE (PER PROTOCOL) Stop: 12/31/17 16:01 Last Titration: 11/02/17 06:18 Dose: 4 mcg/min, 15.24 mls/hr Lactobacillus Rhamnosus (Culturelle 15b) 1 each PO DAILY [facility] Stop: 01/01/18 13:59 Levetiracetam (Keppra) 500 mg PO BID [facility] Stop: 12/31/17 08:59 Last Admin: 11/02/17 09:41 Dose: 500 mg Lorazepam (Ativan) 1 mg IVP Q6HR [facility]; Protocol PRN Reason: Seizure Stop: 12/31/17 08:51 Last Admin: 11/01/17 18:24 Dose: 1 mg Mirtazapine (Remeron) 15 mg PO HS [facility]; Protocol Stop: 12/31/17 20:59 Miscellaneous (Vancomycin Iv Per Pharmacy) 1 [facility] PRN PRN PRN Reason: PROTOCOL Stop: 12/31/17 01:03 Miscellaneous (Probiotic Screen) 1 [facility]a [facility] PRN PRN PRN Reason: PROTOCOL Stop: 01/01/18 12:28 Mupirocin (Bactroban Oint) 1 appl NS BID [facility] Stop: 11/07/17 09:01 Olanzapine (Zyprexa) 2.5 mg PO HS [facility]; Protocol Stop: 12/31/17 20:59 Pantoprazole Sodium (Protonix) 40 mg PO DAILY [facility] Stop: 12/31/17 08:59 Last Admin: 11/02/17 09:41 Dose: 40 mg Polyethylene Glycol (Miralax) 17 gm PO DAILY [facility] Stop: 12/31/17 12:59 Last Admin: 11/02/17 09:41 Dose: 17 gm Tamsulosin HCl (Flomax) 0.4 mg PO BID [facility] Stop: 12/31/17 08:59 Last Admin: 11/02/17 09:41 Dose: 0.4 mg General: Alert, No acute distress HEENT: Atraumatic, PERRLA, Mucous membr. moist/pink Neck: Supple, +2 carotid pulse wo bruit Cardiovascular: Regular rate, Normal S1, Normal S2 Lungs: Normal air movement Abdomen: Bowel sounds, Soft Extremities: no Edema Neurological: Sensation intact Skin: no Rash Psych/Mental Status: Mood NL - Procedures Procedures: Procedures Procedure Code Date INSERTION OF INFUSION DEV INTO SUP VENA CAVA, PERC APPROACH [id number] 01/16/17 PERFORMANCE OF URINARY FILTRATION, <6 HRS/DAY [id number] 09/01/17 ULTRASONOGRAPHY OF SUPERIOR VENA CAVA, GUIDANCE [id number] 01/16/17 Assessment/Plan - Assessment Assessment: ESRD on HD GPC septicemia 2/2 line infxn Shock: septic Constipation Ess Htn w/ CKD GERD Dyslipidemia - Plan Plan: Lab - Result Diagrams 11/02/17 04:10 11/02/17 04:10 Current Medications Acetaminophen (Tylenol) 650 mg PO Q4H PRN PRN Reason: MILD PAIN 1-3/ FEVER ABOVE 101 Stop: 12/31/17 00:37 Last Admin: 11/01/17 19:36 Dose: 650 mg Aspirin (Aspirin Chewable) 81 mg PO DAILY [facility] Stop: 12/31/17 08:59 Last Admin: 11/02/17 09:42 Dose: 81 mg Atorvastatin Calcium (Lipitor) 10 mg PO HS [facility]; Protocol Stop: 12/31/17 20:59 Last Admin: 11/01/17 20:58 Dose: 10 mg Citalopram Hydrobromide (Celexa) 20 mg PO DAILY [facility]; Protocol Stop: 12/31/17 08:59 Donepezil HCl (Aricept) 5 mg PO DAILY [facility] Stop: 12/31/17 08:59 Last Admin: 11/02/17 09:41 Dose: 5 mg Ferrous Sulfate (Iron) 325 mg PO BID [facility] Stop: 12/31/17 08:59 Last Admin: 11/02/17 09:43 Dose: 325 mg Finasteride (Proscar) 5 mg PO DAILY [facility]; Protocol Stop: 12/31/17 08:59 Last Admin: 11/02/17 09:47 Dose: 5 mg Folic Acid (Folate) 1 mg PO DAILY [facility] Stop: 12/31/17 08:59 Last Admin: 11/02/17 09:43 Dose: 1 mg Heparin Sodium (Porcine) (Heparin) 5,000 units HD PRN PRN PRN Reason: DIALYSIS PORTS Stop: 12/31/17 08:51 Piperacillin Sod/Tazobactam (Sod 2.25 gm/ Sodium Chloride) 50 mls @ 100 mls/hr IV Q8HR [facility] Stop: 12/31/17 04:59 Last Admin: 11/02/17 12:56 Dose: 100 mls/hr Norepinephrine Bitartrate 4 mg (/ Dextrose) 254 mls @ 0 mls/hr IV TITR PRN; Protocol PRN Reason: BP MAINTENANCE (PER PROTOCOL) Stop: 12/31/17 16:01 Last Titration: 11/02/17 06:18 Dose: 4 mcg/min, 15.24 mls/hr Lactobacillus Rhamnosus (Culturelle 15b) 1 each PO DAILY [facility] Stop: 01/01/18 13:59 Levetiracetam (Keppra) 500 mg PO BID [facility] Stop: 12/31/17 08:59 Last Admin: 11/02/17 09:41 Dose: 500 mg Lorazepam (Ativan) 1 mg IVP Q6HR [facility]; Protocol PRN Reason: Seizure Stop: 12/31/17 08:51 Last Admin: 11/01/17 18:24 Dose: 1 mg Mirtazapine (Remeron) 15 mg PO HS [facility]; Protocol Stop: 12/31/17 20:59 Miscellaneous (Vancomycin Iv Per Pharmacy) 1 [facility]a [facility] PRN PRN PRN Reason: PROTOCOL Stop: 12/31/17 01:03 Miscellaneous (Probiotic Screen) 1 [facility]a [facility] PRN PRN PRN Reason: PROTOCOL Stop: 01/01/18 12:28 Mupirocin (Bactroban Oint) 1 appl NS BID [facility] Stop: 11/07/17 09:01 Olanzapine (Zyprexa) 2.5 mg PO HS [facility]; Protocol Stop: 12/31/17 20:59 Pantoprazole Sodium (Protonix) 40 mg PO DAILY [facility] Stop: 12/31/17 08:59 Last Admin: 11/02/17 09:41 Dose: 40 mg Polyethylene Glycol (Miralax) 17 gm PO DAILY [facility] Stop: 12/31/17 12:59 Last Admin: 11/02/17 09:41 Dose: 17 gm Tamsulosin HCl (Flomax) 0.4 mg PO BID [facility] Stop: 12/31/17 08:59 Last Admin: 11/02/17 09:41 Dose: 0.4 mg Lab - Result Diagrams 11/02/17 04:10 11/02/17 04:10 BC grew GPC Will dialyze today due to schedule for removal of Cath in am on Zosyn on Levo 4 mcg
[2017-11-02] MEDS: Lactobacillus Rhamnosus GG 15 Billion CFU CAP.SPRINK PO SCH (15:17)
--- NOTE | 2017-11-02 15:32 | General Progress Note ---
Subjective - Review of Systems Events since last encounter: patient comfortable in no distress Objective - Results Result Diagrams: 11/02/17 04:10 11/02/17 04:10 Recent Labs: Laboratory Last Values WBC 6.7 Th/cmm (4.8-10.8) 11/02/17 04:10 RBC 2.79 Mil/cmm (3.80-5.80) L 11/02/17 04:10 Hgb 8.9 gm/dL (12-16) L 11/02/17 04:10 Hct 26.2 % (41.0-60) L 11/02/17 04:10 MCV 93.8 fl (80-99) 11/02/17 04:10 MCH 31.7 pg (27.0-31.0) H 11/02/17 04:10 MCHC Differential 33.8 pg (28.0-36.0) 11/02/17 04:10 RDW 13.2 % (11.5-20.0) 11/02/17 04:10 Plt Count 131 Th/cmm (150-400) L 11/02/17 04:10 MPV 7.5 fl 11/02/17 04:10 Add Manual Diff YES 11/01/17 06:04 Neutrophils % 79.5 % (40.0-80.0) 11/02/17 04:10 Band Neutrophils % 4 % (0-10) 11/01/17 06:04 Lymphocytes % 9.2 % (20.0-50.0) L 11/02/17 04:10 Monocytes % 8.8 % (2.0-10.0) 11/02/17 04:10 Eosinophils % 1.6 % (0.0-5.0) 11/02/17 04:10 Basophils % 0.9 % (0.0-2.0) 11/02/17 04:10 Neutrophils (Manual) 84 % (40-80) H 11/01/17 06:04 Lymphocytes 6 % (20-50) L 11/01/17 06:04 Monocytes 6 % (2-10) 11/01/17 06:04 Eosinophils 0 % (0-5) 11/01/17 06:04 Basophils 0 % (0-3) 11/01/17 06:04 PT 11.0 SECONDS (9.5-11.5) 10/31/17 21:40 INR 1.06 (0.5-1.4) 10/31/17 21:40 Sodium 138 mEq/L (136-145) 11/02/17 04:10 Potassium 4.0 mEq/L (3.5-5.1) 11/02/17 04:10 Chloride 103 mEq/L (98-107) 11/02/17 04:10 Carbon Dioxide 25.2 mEq/L (21.0-31.0) 11/02/17 04:10 Anion Gap 13.8 (7.0-16.0) 11/02/17 04:10 BUN 34 mg/dL (7-25) H 11/02/17 04:10 Creatinine 5.0 mg/dL (0.7-1.3) H* 11/02/17 04:10 Est GFR ( Amer) TNP 11/02/17 04:10 Est GFR (Non-Af Amer) TNP 11/02/17 04:10 BUN/Creatinine Ratio 6.8 11/02/17 04:10 Glucose 112 mg/dL (70-105) H 11/02/17 04:10 Whole Bld Lactic Acid 1.36 mmol/L (0.60-1.99) 11/01/17 17:50 Calcium 9.3 mg/dL (8.6-10.3) 11/02/17 04:10 Total Bilirubin 0.6 mg/dL (0.3-1.0) 10/31/17 21:40 AST 38 U/L (13-39) 10/31/17 21:40 ALT 31 U/L (7-52) 10/31/17 21:40 Alkaline Phosphatase 109 U/L (34-104) H 10/31/17 21:40 Troponin I 0.04 ng/mL (0.01-0.05) 10/31/17 21:40 Total Protein 7.1 gm/dL (6.0-8.3) 10/31/17 21:40 Albumin 3.4 gm/dL (4.2-5.5) L 10/31/17 21:40 Globulin 3.7 gm/dL 10/31/17 21:40 Albumin/Globulin Ratio 0.9 (1.0-1.8) L 09/08/18 21:40 Triglycerides 78 mg/dL (<150) 11/01/17 06:04 Cholesterol 89 mg/dL (<200) 11/01/17 06:04 LDL Cholesterol Direct 39 mg/dL (75-193) L 11/01/17 06:04 HDL Cholesterol 33 mg/dL (23-92) 11/01/17 06:04 TSH 0.55 uIU/ml (0.34-5.60) 11/01/17 06:04 Random Vancomycin 13.5 ug/mL (5.0-40.0) 11/02/17 04:10 - Physical Exam Vitals and I&O: Vital Signs Temp 97.9 F 11/02/17 12:00 Pulse 65 11/02/17 15:15 Resp 18 11/02/17 15:00 BP 99/56 11/02/17 15:15 Pulse Ox 100 11/02/17 15:00 Intake & Output 11/01/17 11/02/17 11/02/17 18:59 06:59 18:59 Intake Total 103.086 502.057 150 Balance 103.086 502.057 150 Weight (lbs) 66.82 kg 67.132 kg Intake: Intake, IV Amount 103.086 302.057 50 Norepinephrine 4 mg In 53.086 202.057 Dextrose 5% 250 ml @ Per Protocol IV TITR PRN Rx#: [id number] Piperacillin Sodium/ 50 100 50 Tazobact 2.25 gm In Sodium Chloride 0.9% 50 ml @ 100 mls/hr IV Q8HR [facility] Rx#:[id number] Oral 200 100 Other: # Voids 1 2 # Bowel Movements 0 0 Weight Source Bedscale Bedscale Active Medications: Current Medications Acetaminophen (Tylenol) 650 mg PO Q4H PRN PRN Reason: MILD PAIN 1-3/ FEVER ABOVE 101 Stop: 12/31/17 00:37 Last Admin: 11/01/17 19:36 Dose: 650 mg Aspirin (Aspirin Chewable) 81 mg PO DAILY [facility] Stop: 12/31/17 08:59 Last Admin: 11/02/17 09:42 Dose: 81 mg Atorvastatin Calcium (Lipitor) 10 mg PO HS [facility]; Protocol Stop: 12/31/17 20:59 Last Admin: 11/01/17 20:58 Dose: 10 mg Citalopram Hydrobromide (Celexa) 20 mg PO DAILY [facility], [facility]; Protocol Stop: 12/31/17 08:59 Last Admin: 11/02/17 14:46 Dose: Not Given Donepezil HCl (Aricept) 5 mg PO DAILY [facility]1983 Stop: 12/31/17 08:59 Last Admin: 11/02/17 09:41 Dose: 5 mg Ferrous Sulfate (Iron) 325 mg PO BID [facility] Stop: 12/31/17 08:59 Last Admin: 11/02/17 09:43 Dose: 325 mg Finasteride (Proscar) 5 mg PO DAILY [facility], [facility]1983; Protocol Stop: 12/31/17 08:59 Last Admin: 11/02/17 09:47 Dose: 5 mg Folic Acid (Folate) 1 mg PO DAILY [facility]1983 Stop: 12/31/17 08:59 Last Admin: 11/02/17 09:43 Dose: 1 mg Heparin Sodium (Porcine) (Heparin) 5,000 units HD PRN PRN PRN Reason: DIALYSIS PORTS Stop: 12/31/17 08:51 Piperacillin Sod/Tazobactam (Sod 2.25 gm/ Sodium Chloride) 50 mls @ 100 mls/hr IV Q8HR [facility]1983 Stop: 12/31/17 04:59 Last Infusion: 11/02/17 13:30 Dose: Infused Norepinephrine Bitartrate 4 mg (/ Dextrose) 254 mls @ 0 mls/hr IV TITR PRN; Protocol PRN Reason: BP MAINTENANCE (PER PROTOCOL) Stop: 12/31/17 16:01 Last Titration: 11/02/17 06:18 Dose: 4 mcg/min, 15.24 mls/hr Lactobacillus Rhamnosus (Culturelle 15b) 1 each PO DAILY [facility], [facility]1983 Stop: 01/01/18 13:59 Last Admin: 11/02/17 15:17 Dose: Not Given Levetiracetam (Keppra) 500 mg PO BID [facility]1983 Stop: 12/31/17 08:59 Last Admin: 11/02/17 09:41 Dose: 500 mg Lorazepam (Ativan) 1 mg IVP Q6HR PRN; Protocol PRN Reason: Seizure Stop: 12/31/17 08:51 Last Admin: 11/01/17 18:24 Dose: 1 mg Mirtazapine (Remeron) 15 mg PO HS [facility], [facility]; Protocol Stop: 12/31/17 20:59 Miscellaneous (Vancomycin Iv Per Pharmacy) 1 ea PRN PRN PRN Reason: PROTOCOL Stop: 12/31/17 01:03 Miscellaneous (Probiotic Screen) 1 ea PRN PRN PRN Reason: PROTOCOL Stop: 01/01/18 12:28 Mupirocin (Bactroban Oint) 1 appl NS BID [facility] Stop: 11/07/17 09:01 Olanzapine (Zyprexa) 2.5 mg PO HS [facility]; Protocol Stop: 12/31/17 20:59 Pantoprazole Sodium (Protonix) 40 mg PO DAILY [facility] Stop: 12/31/17 08:59 Last Admin: 11/02/17 09:41 Dose: 40 mg Polyethylene Glycol (Miralax) 17 gm PO DAILY [facility] Stop: 12/31/17 12:59 Last Admin: 11/02/17 09:41 Dose: 17 gm Tamsulosin HCl (Flomax) 0.4 mg PO BID [facility] Stop: 12/31/17 08:59 Last Admin: 11/02/17 09:41 Dose: 0.4 mg General: Alert, No acute distress HEENT: Atraumatic, PERRLA, Mucous membr. moist/pink Neck: Supple, +2 carotid pulse wo bruit Cardiovascular: Regular rate, Normal S1, Normal S2 Lungs: Normal air movement Abdomen: Bowel sounds, Soft Extremities: no Edema Neurological: Sensation intact Skin: no Rash Psych/Mental Status: Mood NL - Procedures Procedures: Procedures Procedure Code Date INSERTION OF INFUSION DEV INTO SUP VENA CAVA, PERC APPROACH [id number] 01/16/17 PERFORMANCE OF URINARY FILTRATION, <6 HRS/DAY [id number] 09/01/17 ULTRASONOGRAPHY OF SUPERIOR VENA CAVA, GUIDANCE [id number] 01/16/17
--- NOTE | 2017-11-02 16:22 | Consultation ---
DATE OF CONSULTATION: 11/02/[address] Wiggins. HISTORY OF PRESENT ILLNESS: This is a 77-year-old male patient who was brought to the hospital because of septic shock and hypotension. The patient is admitted to ICU. Cardiac consult requested as the patient had episodes of supraventricular tachycardia. PAST MEDICAL HISTORY: Septic shock; supraventricular tachycardia; hypotension; diabetes mellitus type 2; diabetes chronic kidney disease, stage V; end-stage renal disease, on dialysis; CVA with late effect; right-sided weakness; dementia; psychosis; and left lower lobe pneumonia. FAMILY HISTORY: Unremarkable. SOCIAL HISTORY: No history of smoking, alcohol abuse. ALLERGIES: None. PHYSICAL EXAMINATION: VITAL SIGNS: Blood pressure 128/80, pulse 88, and respirations 28. HEAD: Normocephalic. No lumps or bumps. EYES: Pupils equal, reactive to light. Fundi show AV nicking, sclerae white, conjunctivae pink. NECK: Carotid 2+. Normal upstroke. JVD flat. Thyroid not palpable. Lymph nodes not palpable. CHEST: Shows increased AP diameter. No kyphosis, scoliosis. LUNGS: Bilateral rales. Decreased breath sounds both the bases. HEART: PMI sixth intercostal space with lateral to midclavicular line. S1, S2, S3, S4. ABDOMEN: Soft. Liver and spleen not palpable. No organomegaly. Bowel sounds active. NEUROLOGIC: CVA with late effect, right-sided weakness. CLINICAL IMPRESSION: Septic shock; hypotension; supraventricular tachycardia; diabetes mellitus type 2; diabetic CKD, stage V; end-stage renal disease, on dialysis; cerebrovascular accident with right-sided weakness, late effect; dementia; psychosis; left lower lobe pneumonia. PLAN: Admit the patient, we will give IV antibiotics. I will get a BNP level and echocardiogram. JOB# [id number]
[2017-11-02] MEDS: Atorvastatin Calcium 10 MG TAB PO SCH (20:54)
[2017-11-03 04:37] LABS: % BASOPHILS 1.2 % (0.0-2.0); % EOSINOPHILS 4.3 % (0.0-5.0); % LYMPHOCYTES 12.1 % (20.0-50.0); % MONOCYTES 14.9 % (2.0-10.0); % NEUTROPHILS 67.5 % (40.0-80.0); BASOPHILE ABSOLUTE 0.1 Th/cumm (0-0.2); EOSINOPHILE ABSOLUTE 0.2 Th/cmm (0.1-0.4); HEMOGLOBIN 9.9 gm/dL (12-16); LYMPHOCYTE ABSOLUTE 0.7 Th/cmm (1.5-3.0); MEAN CELL VOLUME 93.2 fl (80-99); MEAN CORPUSCULAR HEMOGLOBIN 31.9 pg (27.0-31.0); MEAN CORPUSCULAR HGB CONC 34.2 pg (28.0-36.0); MEAN PLATELET VOLUME 7.9 fl; MONOCYTE ABSOLUTE 0.8 Th/cmm (0.3-1.0); NEUTROPHILE ABSOLUTE 3.9 Th/cmm (1.8-8.0); PLATELET COUNT 156 Th/cmm (150-400); RED BLOOD COUNT 3.11 Mil/cmm (3.80-5.80); RED CELL DISTRIBUTION WIDTH 13.4 % (11.5-20.0); WHITE BLOOD COUNT 5.7 Th/cmm (4.8-10.8)
[2017-11-03 05:09] LABS: ANION GAP 12.5 (7.0-16.0); BUN - UREA NITROGEN 18 mg/dL (7-25); CALCIUM SERUM 9.4 mg/dL (8.6-10.3); CARBON DIOXIDE 25.2 mEq/L (21.0-31.0); CHLORIDE 103 mEq/L (98-107); CREATININE - SERUM 3.4 mg/dL (0.7-1.3); GLUCOSE 128 mg/dL (70-105); POTASSIUM SERUM 3.7 mEq/L (3.5-5.1); SODIUM SERUM 137 mEq/L (136-145)
[2017-11-03] MEDS: Ferrous Sulfate 325 MG TAB PO SCH ×2 (08:47→16:21)
[2017-11-03] MEDS: Aspirin 81mg Chewable Tab PO SCH (08:47)
[2017-11-03] MEDS: Lactobacillus Rhamnosus GG 15 Billion CFU CAP.SPRINK PO SCH (08:47)
[2017-11-03] MEDS: POLYETHYLENE GLYCOL 3350 17 GM PACK PO SCH (08:47)
[2017-11-03] MEDS: Pantoprazole 40 mg EC Tab PO SCH (08:48)
--- NOTE | 2017-11-03 12:11 | General Progress Note ---
Subjective - Review of Systems Service Date: 11/03/17 Events since last encounter: Permacath removed Cand S ordered Objective - Results Result Diagrams: 11/03/17 04:05 11/03/17 04:05 Recent Labs: Laboratory Last Values WBC 5.7 Th/cmm (4.8-10.8) 11/03/17 04:05 RBC 3.11 Mil/cmm (3.80-5.80) L 11/03/17 04:05 Hgb 9.9 gm/dL (12-16) L 11/03/17 04:05 Hct 29.0 % (41.0-60) L 11/03/17 04:05 MCV 93.2 fl (80-99) 11/03/17 04:05 MCH 31.9 pg (27.0-31.0) H 11/03/17 04:05 MCHC Differential 34.2 pg (28.0-36.0) 11/03/17 04:05 RDW 13.4 % (11.5-20.0) 11/03/17 04:05 Plt Count 156 Th/cmm (150-400) 11/03/17 04:05 MPV 7.9 fl 11/03/17 04:05 Add Manual Diff YES 11/01/17 06:04 Neutrophils % 67.5 % (40.0-80.0) 11/03/17 04:05 Band Neutrophils % 4 % (0-10) 11/01/17 06:04 Lymphocytes % 12.1 % (20.0-50.0) L 11/03/17 04:05 Monocytes % 14.9 % (2.0-10.0) H 11/03/17 04:05 Eosinophils % 4.3 % (0.0-5.0) 11/03/17 04:05 Basophils % 1.2 % (0.0-2.0) 11/03/17 04:05 Neutrophils (Manual) 84 % (40-80) H 11/01/17 06:04 Lymphocytes 6 % (20-50) L 11/01/17 06:04 Monocytes 6 % (2-10) 11/01/17 06:04 Eosinophils 0 % (0-5) 11/01/17 06:04 Basophils 0 % (0-3) 11/01/17 06:04 PT 11.0 SECONDS (9.5-11.5) 10/31/17 21:40 INR 1.06 (0.5-1.4) 10/31/17 21:40 Sodium 137 mEq/L (136-145) 11/03/17 04:05 Potassium 3.7 mEq/L (3.5-5.1) 11/03/17 04:05 Chloride 103 mEq/L (98-107) 11/03/17 04:05 Carbon Dioxide 25.2 mEq/L (21.0-31.0) 11/03/17 04:05 Anion Gap 12.5 (7.0-16.0) 11/03/17 04:05 BUN 18 mg/dL (7-25) 11/03/17 04:05 Creatinine 3.4 mg/dL (0.7-1.3) H 11/03/17 04:05 Est GFR ( Amer) TNP 11/03/17 04:05 Est GFR (Non-Af Amer) TNP 11/03/17 04:05 BUN/Creatinine Ratio 5.3 11/03/17 04:05 Glucose 128 mg/dL (70-105) H 11/03/17 04:05 Whole Bld Lactic Acid 1.36 mmol/L (0.60-1.99) 11/01/17 17:50 Calcium 9.4 mg/dL (8.6-10.3) 11/03/17 04:05 Total Bilirubin 0.6 mg/dL (0.3-1.0) 10/31/17 21:40 AST 38 U/L (13-39) 10/31/17 21:40 ALT 31 U/L (7-52) 10/31/17 21:40 Alkaline Phosphatase 109 U/L (34-104) H 10/31/17 21:40 Troponin I 0.04 ng/mL (0.01-0.05) 10/31/17 21:40 B-Natriuretic Peptide 959.0 pg/mL (5.0-100.0) H 11/03/17 04:05 Total Protein 7.1 gm/dL (6.0-8.3) 10/31/17 21:40 Albumin 3.4 gm/dL (4.2-5.5) L 10/31/17 21:40 Globulin 3.7 gm/dL 10/31/17 21:40 Albumin/Globulin Ratio 0.9 (1.0-1.8) L 10/31/17 21:40 Triglycerides 78 mg/dL (<150) 11/01/17 06:04 Cholesterol 89 mg/dL (<200) 11/01/17 06:04 LDL Cholesterol Direct 39 mg/dL (75-193) L 11/01/17 06:04 HDL Cholesterol 33 mg/dL (23-92) 11/01/17 06:04 TSH 0.55 uIU/ml (0.34-5.60) 11/01/17 06:04 Random Vancomycin 20.9 ug/mL (5.0-40.0) 11/03/17 04:05 - Physical Exam Vitals and I&O: Vital Signs Temp 98.4 F 11/03/17 08:00 Pulse 94 11/03/17 11:45 Resp 19 11/03/17 11:00 BP 98/59 11/03/17 11:45 Pulse Ox 98 11/03/17 11:00 Intake & Output 11/02/17 11/03/17 11/03/17 18:59 06:59 18:59 Intake Total 1135.928 633.934 115.062 Output Total 500 Balance 635.928 633.934 115.062 Weight (lbs) 67.132 kg 70.398 kg Intake: Intake, IV Amount 235.928 333.934 115.062 Norepinephrine 4 mg In 185.928 233.934 115.062 Dextrose 5% 250 ml @ Per Protocol IV TITR PRN Rx#: [id number] Piperacillin Sodium/ 50 100 Tazobact 2.25 gm In Sodium Chloride 0.9% 50 ml @ 100 mls/hr IV Q8HR [facility] Rx#:[id number] Oral 900 300 Output: Hemodialysis 500 Other: # Voids 1 2 # Bowel Movements 0 0 Weight Source Bedscale Bedscale Active Medications: Current Medications Acetaminophen (Tylenol) 650 mg PO Q4H PRN PRN Reason: MILD PAIN 1-3/ FEVER ABOVE 101 Stop: 12/31/17 00:37 Last Admin: 11/03/17 04:49 Dose: 650 mg Aspirin (Aspirin Chewable) 81 mg PO DAILY [facility] Stop: 12/31/17 08:59 Last Admin: 11/03/17 08:47 Dose: 81 mg Atorvastatin Calcium (Lipitor) 10 mg PO HS [facility]; Protocol Stop: 12/31/17 20:59 Last Admin: 11/02/17 20:54 Dose: 10 mg Citalopram Hydrobromide (Celexa) 20 mg PO DAILY [facility]; Protocol Stop: 12/31/17 08:59 Last Admin: 11/03/17 08:47 Dose: 20 mg Donepezil HCl (Aricept) 5 mg PO DAILY [facility] Stop: 12/31/17 08:59 Last Admin: 11/03/17 08:48 Dose: 5 mg Ferrous Sulfate (Iron) 325 mg PO BID [facility] Stop: 12/31/17 08:59 Last Admin: 11/03/17 08:47 Dose: 325 mg Finasteride (Proscar) 5 mg PO DAILY [facility]; Protocol Stop: 12/31/17 08:59 Last Admin: 11/03/17 08:48 Dose: 5 mg Folic Acid (Folate) 1 mg PO DAILY [facility] Stop: 12/31/17 08:59 Last Admin: 11/03/17 08:47 Dose: 1 mg Heparin Sodium (Porcine) (Heparin) 5,000 units HD PRN PRN PRN Reason: DIALYSIS PORTS Stop: 12/31/17 08:51 Piperacillin Sod/Tazobactam (Sod 2.25 gm/ Sodium Chloride) 50 mls @ 100 mls/hr IV Q8HR [facility] Stop: 12/31/17 04:59 Last Infusion: 11/03/17 05:28 Dose: Infused Norepinephrine Bitartrate 4 mg (/ Dextrose) 254 mls @ 0 mls/hr IV TITR PRN; Protocol PRN Reason: BP MAINTENANCE (PER PROTOCOL) Stop: 12/31/17 16:01 Last Titration: 11/03/17 09:46 Dose: 4 mcg/min, 15.24 mls/hr Vancomycin HCl 1 gm/ Sodium (Chloride) 250 mls @ 165 mls/hr IV ONCE ONE Stop: 11/03/17 16:30 Lactobacillus Rhamnosus (Culturelle 15b) 1 each PO DAILY [facility] Stop: 01/01/18 13:59 Last Admin: 11/03/17 08:47 Dose: 1 each Levetiracetam (Keppra) 500 mg PO BID [facility] Stop: 12/31/17 08:59 Last Admin: 11/03/17 08:48 Dose: 500 mg Lorazepam (Ativan) 1 mg IVP Q6HR PRN; Protocol PRN Reason: Seizure Stop: 12/31/17 08:51 Last Admin: 11/03/17 12:04 Dose: 1 mg Mirtazapine (Remeron) 15 mg PO HS [facility]; Protocol Stop: 12/31/17 20:59 Last Admin: 11/02/17 20:59 Dose: Not Given Miscellaneous (Vancomycin Iv Per Pharmacy) 1 ea PRN PRN PRN Reason: PROTOCOL Stop: 12/31/17 01:03 Miscellaneous (Probiotic Screen) 1 ea PRN PRN PRN Reason: PROTOCOL Stop: 01/01/18 12:28 Mupirocin (Bactroban Oint) 1 appl NS BID [facility] Stop: 11/07/17 09:01 Last Admin: 11/03/17 08:48 Dose: 1 appl Olanzapine (Zyprexa) 2.5 mg PO HS [facility]; Protocol Stop: 12/31/17 20:59 Last Admin: 11/02/17 20:59 Dose: Not Given Pantoprazole Sodium (Protonix) 40 mg PO DAILY [facility] Stop: 12/31/17 08:59 Last Admin: 11/03/17 08:48 Dose: 40 mg Polyethylene Glycol (Miralax) 17 gm PO DAILY [facility] Stop: 12/31/17 12:59 Last Admin: 11/03/17 08:47 Dose: 17 gm Tamsulosin HCl (Flomax) 0.4 mg PO BID [facility] Stop: 12/31/17 08:59 Last Admin: 11/03/17 08:47 Dose: 0.4 mg General: Alert, No acute distress HEENT: Atraumatic, PERRLA, Mucous membr. moist/pink Neck: Supple, +2 carotid pulse wo bruit Cardiovascular: Regular rate, Normal S1, Normal S2 Lungs: Normal air movement Abdomen: Bowel sounds, Soft Extremities: no Edema Neurological: Sensation intact Skin: no Rash Psych/Mental Status: Mood NL - Procedures Procedures: Procedures Procedure Code Date INSERTION OF INFUSION DEV INTO SUP VENA CAVA, PERC APPROACH [id number] 01/16/17 PERFORMANCE OF URINARY FILTRATION, <6 HRS/DAY [id number] 09/01/17 ULTRASONOGRAPHY OF SUPERIOR VENA CAVA, GUIDANCE [id number] 01/16/17 Nutritional Asmnt/Malnutr-PDOC - Dietary Evaluation Malnutrition Findings (Please click <Entered> for more info): Nutritional Asmnt/Malnutrition Start: 11/02/17 16: 00 Text: Status: Complete Freq: Protocol: Document 11/02/17 16:02 GEORGECRYSTAL (Rec: 11/02/17 16:14 CARMEN [email or web address]) Nutritional Asmnt/Malnutrition Patient General Information Nutritional Screening High Risk Diagnosis sepsis, PNA Pertinent Medical Hx/Surgical Hx HTN, Dm, CVA, ESRD, dementia Subjective Information Pt seen resting in bed at time of visit. Pt is now on NPO for possible surgery. Per nurse note, pt had dialysis today. Pt is on Levophed noted . Current Diet Order/ Nutrition Support NPO Pertinent Medications lipitor, iron, folate, culturelle, remeron, levophed, protonix, piperacillin, miralax Pertinent Labs 11/02 BUN 34, Cr 5.0, glucose 112 11/01 Na 135, Cr 3.7, glucose 101 Nutritional Hx/Data Height 1.68 m Height (Calculated Centimeters) 167.6 Current Weight (lbs) 67.132 kg Weight (Calculated Kilograms) 67.1 Weight (Calculated Grams) 79829.7 [place] Body Weight 142 Body Mass Index (BMI) 23.8 Weight Status Approriate GI Symptoms GI Symptoms None Last BM no BM Difficult in: None Skin Integrity/Comment: opening above permacath site reddned to left arm Estimated Nutritional Goals BEE in Kcals: Using Current wt Calories/Kcals/Kg 27-32 Kcals Calculated 9261-3236 Protein: Using Current wt Protein g/k.2 Protein Calculated 80 Fluid: ml 1809-2144ml (1ml/kcal) Nutritional Problem 2. Problem Problem increased nutrition needs Etiology increased metabolic demand Signs/Symptoms: pt on dialysis and dx of sepsis, PNA 1. Problem Problem altered nutrition related labs Etiology hx of ESRD Signs/Symptoms: BUN 34, Cr 5.0, Intervention/Recommendation Comments 1. Monitor NPO status. Resume oral diet when medically appropriate. If PO intake <50% , will consider offer Nepro to increase nutrition itnake. 2. Monitor PO intake, wt, labs and skin integrity 3. F/U as hifh risk in 2-3 days, 11/04-11/05 Expected Outcomes/Goals Expected Outcomes/Goals 1. PO intake to meet at least 75% of nutritional needs. 2. Wt stability, skin to remain intact, labs to approach WNL.
--- NOTE | 2017-11-03 14:18 | General Progress Note ---
Subjective - Review of Systems Service Date: 11/03/17 Subjective: more interactive, comfortable Objective - Results Result Diagrams: 11/03/17 04:05 11/03/17 04:05 Recent Labs: Laboratory Last Values WBC 5.7 Th/cmm (4.8-10.8) 11/03/17 04:05 RBC 3.11 Mil/cmm (3.80-5.80) L 11/03/17 04:05 Hgb 9.9 gm/dL (12-16) L 11/03/17 04:05 Hct 29.0 % (41.0-60) L 11/03/17 04:05 MCV 93.2 fl (80-99) 11/03/17 04:05 MCH 31.9 pg (27.0-31.0) H 11/03/17 04:05 MCHC Differential 34.2 pg (28.0-36.0) 11/03/17 04:05 RDW 13.4 % (11.5-20.0) 11/03/17 04:05 Plt Count 156 Th/cmm (150-400) 11/03/17 04:05 MPV 7.9 fl 11/03/17 04:05 Add Manual Diff YES 11/01/17 06:04 Neutrophils % 67.5 % (40.0-80.0) 11/03/17 04:05 Band Neutrophils % 4 % (0-10) 11/01/17 06:04 Lymphocytes % 12.1 % (20.0-50.0) L 11/03/17 04:05 Monocytes % 14.9 % (2.0-10.0) H 11/03/17 04:05 Eosinophils % 4.3 % (0.0-5.0) 11/03/17 04:05 Basophils % 1.2 % (0.0-2.0) 11/03/17 04:05 Neutrophils (Manual) 84 % (40-80) H 11/01/17 06:04 Lymphocytes 6 % (20-50) L 11/01/17 06:04 Monocytes 6 % (2-10) 11/01/17 06:04 Eosinophils 0 % (0-5) 11/01/17 06:04 Basophils 0 % (0-3) 11/01/17 06:04 PT 11.0 SECONDS (9.5-11.5) 10/31/17 21:40 INR 1.06 (0.5-1.4) 10/31/17 21:40 Sodium 137 mEq/L (136-145) 11/03/17 04:05 Potassium 3.7 mEq/L (3.5-5.1) 11/03/17 04:05 Chloride 103 mEq/L (98-107) 11/03/17 04:05 Carbon Dioxide 25.2 mEq/L (21.0-31.0) 11/03/17 04:05 Anion Gap 12.5 (7.0-16.0) 11/03/17 04:05 BUN 18 mg/dL (7-25) 11/03/17 04:05 Creatinine 3.4 mg/dL (0.7-1.3) H 11/03/17 04:05 Est GFR ( Amer) TNP 11/03/17 04:05 Est GFR (Non-Af Amer) TNP 11/03/17 04:05 BUN/Creatinine Ratio 5.3 11/03/17 04:05 Glucose 128 mg/dL (70-105) H 11/03/17 04:05 Whole Bld Lactic Acid 1.36 mmol/L (0.60-1.99) 11/01/17 17:50 Calcium 9.4 mg/dL (8.6-10.3) 11/03/17 04:05 Total Bilirubin 0.6 mg/dL (0.3-1.0) 10/31/17 21:40 AST 38 U/L (13-39) 10/31/17 21:40 ALT 31 U/L (7-52) 10/31/17 21:40 Alkaline Phosphatase 109 U/L (34-104) H 10/31/17 21:40 Troponin I 0.04 ng/mL (0.01-0.05) 10/31/17 21:40 B-Natriuretic Peptide 959.0 pg/mL (5.0-100.0) H 11/03/17 04:05 Total Protein 7.1 gm/dL (6.0-8.3) 10/31/17 21:40 Albumin 3.4 gm/dL (4.2-5.5) L 10/31/17 21:40 Globulin 3.7 gm/dL 10/31/17 21:40 Albumin/Globulin Ratio 0.9 (1.0-1.8) L 10/31/17 21:40 Triglycerides 78 mg/dL (<150) 11/01/17 06:04 Cholesterol 89 mg/dL (<200) 11/01/17 06:04 LDL Cholesterol Direct 39 mg/dL (75-193) L 11/01/17 06:04 HDL Cholesterol 33 mg/dL (23-92) 11/01/17 06:04 TSH 0.55 uIU/ml (0.34-5.60) 11/01/17 06:04 Random Vancomycin 20.9 ug/mL (5.0-40.0) 11/03/17 04:05 - Physical Exam Vitals and I&O: Vital Signs Temp 98.8 F 11/03/17 12:00 Pulse 71 11/03/17 13:45 Resp 22 11/03/17 13:00 BP 106/61 11/03/17 13:45 Pulse Ox 98 11/03/17 13:00 Intake & Output 11/02/17 11/03/17 11/03/17 18:59 06:59 18:59 Intake Total 1135.928 633.934 115.062 Output Total 500 Balance 635.928 633.934 115.062 Weight (lbs) 67.132 kg 70.398 kg Intake: Intake, IV Amount 235.928 333.934 115.062 Norepinephrine 4 mg In 185.928 233.934 115.062 Dextrose 5% 250 ml @ Per Protocol IV TITR PRN Rx#: [id number] Piperacillin Sodium/ 50 100 Tazobact 2.25 gm In Sodium Chloride 0.9% 50 ml @ 100 mls/hr IV Q8HR [facility] Rx#:[id number] Oral 900 300 Output: Hemodialysis 500 Other: # Voids 1 2 # Bowel Movements 0 0 Weight Source Bedscale Bedscale Active Medications: Current Medications Acetaminophen (Tylenol) 650 mg PO Q4H PRN PRN Reason: MILD PAIN 1-3/ FEVER ABOVE 101 Stop: 12/31/17 00:37 Last Admin: 11/03/17 04:49 Dose: 650 mg Aspirin (Aspirin Chewable) 81 mg PO DAILY [facility] Stop: 12/31/17 08:59 Last Admin: 09/11/18 08:47 Dose: 81 mg Atorvastatin Calcium (Lipitor) 10 mg PO HS [facility]; Protocol Stop: 12/31/17 20:59 Last Admin: 11/02/17 20:54 Dose: 10 mg Citalopram Hydrobromide (Celexa) 20 mg PO DAILY [facility]; Protocol Stop: 12/31/17 08:59 Last Admin: 11/03/17 08:47 Dose: 20 mg Donepezil HCl (Aricept) 5 mg PO DAILY [facility] Stop: 12/31/17 08:59 Last Admin: 11/03/17 08:48 Dose: 5 mg Ferrous Sulfate (Iron) 325 mg PO BID [facility] Stop: 12/31/17 08:59 Last Admin: 11/03/17 08:47 Dose: 325 mg Finasteride (Proscar) 5 mg PO DAILY [facility]; Protocol Stop: 12/31/17 08:59 Last Admin: 11/03/17 08:48 Dose: 5 mg Folic Acid (Folate) 1 mg PO DAILY [facility] Stop: 12/31/17 08:59 Last Admin: 11/03/17 08:47 Dose: 1 mg Heparin Sodium (Porcine) (Heparin) 5,000 units HD PRN PRN PRN Reason: DIALYSIS PORTS Stop: 12/31/17 08:51 Piperacillin Sod/Tazobactam (Sod 2.25 gm/ Sodium Chloride) 50 mls @ 100 mls/hr IV Q8HR [facility] Stop: 12/31/17 04:59 Last Admin: 11/03/17 13:40 Dose: 100 mls/hr Norepinephrine Bitartrate 4 mg (/ Dextrose) 254 mls @ 0 mls/hr IV TITR PRN; Protocol PRN Reason: BP MAINTENANCE (PER PROTOCOL) Stop: 12/31/17 16:01 Last Titration: 11/03/17 09:46 Dose: 4 mcg/min, 15.24 mls/hr Vancomycin HCl 1 gm/ Sodium (Chloride) 250 mls @ 165 mls/hr IV ONCE ONE Stop: 11/03/17 16:30 Lactobacillus Rhamnosus (Culturelle 15b) 1 each PO DAILY [facility] Stop: 01/01/18 13:59 Last Admin: 11/03/17 08:47 Dose: 1 each Levetiracetam (Keppra) 500 mg PO BID [facility] Stop: 12/31/17 08:59 Last Admin: 11/03/17 08:48 Dose: 500 mg Lorazepam (Ativan) 1 mg IVP Q6HR PRN; Protocol PRN Reason: Seizure Stop: 12/31/17 08:51 Last Admin: 11/03/17 12:04 Dose: 1 mg Mirtazapine (Remeron) 15 mg PO HS [facility]; Protocol Stop: 12/31/17 20:59 Last Admin: 11/02/17 20:59 Dose: Not Given Miscellaneous (Vancomycin Iv Per Pharmacy) 1 ea PRN PRN PRN Reason: PROTOCOL Stop: 12/31/17 01:03 Miscellaneous (Probiotic Screen) 1 ea PRN PRN PRN Reason: PROTOCOL Stop: 01/01/18 12:28 Mupirocin (Bactroban Oint) 1 appl NS BID [facility] Stop: 11/07/17 09:01 Last Admin: 11/03/17 08:48 Dose: 1 appl Olanzapine (Zyprexa) 2.5 mg PO HS [facility]; Protocol Stop: 12/31/17 20:59 Last Admin: 11/02/17 20:59 Dose: Not Given Pantoprazole Sodium (Protonix) 40 mg PO DAILY [facility] Stop: 12/31/17 08:59 Last Admin: 11/03/17 08:48 Dose: 40 mg Polyethylene Glycol (Miralax) 17 gm PO DAILY [facility] Stop: 12/31/17 12:59 Last Admin: 11/03/17 08:47 Dose: 17 gm Tamsulosin HCl (Flomax) 0.4 mg PO BID [facility] Stop: 12/31/17 08:59 Last Admin: 11/03/17 08:47 Dose: 0.4 mg General: Alert, No acute distress HEENT: Atraumatic, PERRLA, Mucous membr. moist/pink Neck: Supple, +2 carotid pulse wo bruit Cardiovascular: Regular rate, Normal S1, Normal S2 Lungs: Normal air movement Abdomen: Bowel sounds, Soft Extremities: no Edema Neurological: Sensation intact Skin: no Rash Psych/Mental Status: Mood NL - Procedures Procedures: Procedures Procedure Code Date INSERTION OF INFUSION DEV INTO SUP VENA CAVA, PERC APPROACH [id number] 01/16/17 PERFORMANCE OF URINARY FILTRATION, <6 HRS/DAY [id number] 09/01/17 ULTRASONOGRAPHY OF SUPERIOR VENA CAVA, GUIDANCE [id number] 11/24/17 Assessment/Plan - Assessment Assessment: ESRD on HD GPC septicemia 2/2 line infxn Shock: septic Constipation Ess Htn w/ CKD GERD Dyslipidemia MRSA nares - Plan Plan: Lab - Result Diagrams 11/02/17 04:10 11/02/17 04:10 Current Medications Acetaminophen (Tylenol) 650 mg PO Q4H PRN PRN Reason: MILD PAIN 1-3/ FEVER ABOVE 101 Stop: 12/31/17 00:37 Last Admin: 11/01/17 19:36 Dose: 650 mg Aspirin (Aspirin Chewable) 81 mg PO DAILY [facility] Stop: 12/31/17 08:59 Last Admin: 11/02/17 09:42 Dose: 81 mg Atorvastatin Calcium (Lipitor) 10 mg PO HS [facility]; Protocol Stop: 12/31/17 20:59 Last Admin: 11/01/17 20:58 Dose: 10 mg Citalopram Hydrobromide (Celexa) 20 mg PO DAILY [facility]; Protocol Stop: 12/31/17 08:59 Donepezil HCl (Aricept) 5 mg PO DAILY [facility] Stop: 12/31/17 08:59 Last Admin: 11/02/17 09:41 Dose: 5 mg Ferrous Sulfate (Iron) 325 mg PO BID [facility] Stop: 12/31/17 08:59 Last Admin: 11/02/17 09:43 Dose: 325 mg Finasteride (Proscar) 5 mg PO DAILY [facility]; Protocol Stop: 12/31/17 08:59 Last Admin: 11/02/17 09:47 Dose: 5 mg Folic Acid (Folate) 1 mg PO DAILY [facility] Stop: 12/31/17 08:59 Last Admin: 11/02/17 09:43 Dose: 1 mg Heparin Sodium (Porcine) (Heparin) 5,000 units HD PRN PRN PRN Reason: DIALYSIS PORTS Stop: 12/31/17 08:51 Piperacillin Sod/Tazobactam (Sod 2.25 gm/ Sodium Chloride) 50 mls @ 100 mls/hr IV Q8HR [facility] Stop: 12/31/17 04:59 Last Admin: 11/02/17 12:56 Dose: 100 mls/hr Norepinephrine Bitartrate 4 mg (/ Dextrose) 254 mls @ 0 mls/hr IV TITR PRN; Protocol PRN Reason: BP MAINTENANCE (PER PROTOCOL) Stop: 12/31/17 16:01 Last Titration: 11/02/17 06:18 Dose: 4 mcg/min, 15.24 mls/hr Lactobacillus Rhamnosus (Culturelle 15b) 1 each PO DAILY [facility] Stop: 01/01/18 13:59 Levetiracetam (Keppra) 500 mg PO BID [facility] Stop: 12/31/17 08:59 Last Admin: 11/02/17 09:41 Dose: 500 mg Lorazepam (Ativan) 1 mg IVP Q6HR PRN; Protocol PRN Reason: Seizure Stop: 12/31/17 08:51 Last Admin: 11/01/17 18:24 Dose: 1 mg Mirtazapine (Remeron) 15 mg PO HS [facility]; Protocol Stop: 12/31/17 20:59 Miscellaneous (Vancomycin Iv Per Pharmacy) 1 ea PRN PRN PRN Reason: PROTOCOL Stop: 12/31/17 01:03 Miscellaneous (Probiotic Screen) 1 [facility] PRN PRN PRN Reason: PROTOCOL Stop: 01/01/18 12:28 Mupirocin (Bactroban Oint) 1 appl NS BID [facility] Stop: 11/07/17 09:01 Olanzapine (Zyprexa) 2.5 mg PO HS [facility]; Protocol Stop: 12/31/17 20:59 Pantoprazole Sodium (Protonix) 40 mg PO DAILY [facility] Stop: 12/31/17 08:59 Last Admin: 11/02/17 09:41 Dose: 40 mg Polyethylene Glycol (Miralax) 17 gm PO DAILY [facility] Stop: 12/31/17 12:59 Last Admin: 11/02/17 09:41 Dose: 17 gm Tamsulosin HCl (Flomax) 0.4 mg PO BID FOREST Stop: 12/31/17 08:59 Last Admin: 11/02/17 09:41 Dose: 0.4 mg Lab - Result Diagrams 11/03/17 04:05 11/03/17 04:05 BC grew GPC Will dialyze today due to schedule for removal of Cath in am on Zosyn on Levo 2 mcg f/u cbc Nutritional Asmnt/Malnutr-PDOC - Dietary Evaluation Malnutrition Findings (Please click <Entered> for more info): Nutritional Asmnt/Malnutrition Start: 11/02/17 16: 00 Text: Status: Complete Freq: Protocol: Document 11/02/17 16:02 LCHENG (Rec: 11/02/17 16:14 [id number]) Nutritional Asmnt/Malnutrition Patient General Information Nutritional Screening High Risk Diagnosis sepsis, PNA Pertinent Medical Hx/Surgical Hx HTN, Dm, CVA, ESRD, dementia Subjective Information Pt seen resting in bed at time of visit. Pt is now on NPO for possible surgery. Per nurse note, pt had dialysis today. Pt is on Levophed noted . Current Diet Order/ Nutrition Support NPO Pertinent Medications lipitor, iron, folate, culturelle, remeron, levophed, protonix, piperacillin, miralax Pertinent Labs 11/02 BUN 34, Cr 5.0, glucose 112 11/01 Na 135, Cr 3.7, glucose 101 Nutritional Hx/Data Height 1.68 m Height (Calculated Centimeters) 167.6 Current Weight (lbs) 67.132 kg Weight (Calculated Kilograms) 67.1 Weight (Calculated Grams) 02679.7 [place] Body Weight 142 Body Mass Index (BMI) 23.8 Weight Status Approriate GI Symptoms GI Symptoms None Last BM no BM Difficult in: None Skin Integrity/Comment: opening above permacath site reddned to left arm Estimated Nutritional Goals BEE in Kcals: Using Current wt Calories/Kcals/Kg 27-32 Kcals Calculated 3749-3418 Protein: Using Current wt Protein g/k.2 Protein Calculated 80 Fluid: ml 1809-2144ml (1ml/kcal) Nutritional Problem 2. Problem Problem increased nutrition needs Etiology increased metabolic demand Signs/Symptoms: pt on dialysis and dx of sepsis, PNA 1. Problem Problem altered nutrition related labs Etiology hx of ESRD Signs/Symptoms: BUN 34, Cr 5.0, Intervention/Recommendation Comments 1. Monitor NPO status. Resume oral diet when medically appropriate. If PO intake <50% , will consider offer Nepro to increase nutrition itnake. 2. Monitor PO intake, wt, labs and skin integrity 3. F/U as hifh risk in 2-3 days, 11/04-11/05 Expected Outcomes/Goals Expected Outcomes/Goals 1. PO intake to meet at least 75% of nutritional needs. 2. Wt stability, skin to remain intact, labs to approach WNL.
--- NOTE | 2017-11-03 20:06 | Internal Medicine Prog Note ---
Internal Medicine Subjective - Subjective Service Date: 11/03/17 Patient seen and examined:: with staff Patient is:: eyes closed, in bed Per staff patient has:: tolerating meds Internal Medicine Objective - Results Result Diagrams: 11/03/17 04:05 11/03/17 04:05 Recent Labs: Laboratory Last Values WBC 5.7 Th/cmm (4.8-10.8) 11/03/17 04:05 RBC 3.11 Mil/cmm (3.80-5.80) L 11/03/17 04:05 Hgb 9.9 gm/dL (12-16) L 11/03/17 04:05 Hct 29.0 % (41.0-60) L 11/03/17 04:05 MCV 93.2 fl (80-99) 11/03/17 04:05 MCH 31.9 pg (27.0-31.0) H 11/03/17 04:05 MCHC Differential 34.2 pg (28.0-36.0) 11/03/17 04:05 RDW 13.4 % (11.5-20.0) 11/03/17 04:05 Plt Count 156 Th/cmm (150-400) 11/03/17 04:05 MPV 7.9 fl 11/03/17 04:05 Add Manual Diff YES 11/01/17 06:04 Neutrophils % 67.5 % (40.0-80.0) 11/03/17 04:05 Band Neutrophils % 4 % (0-10) 11/01/17 06:04 Lymphocytes % 12.1 % (20.0-50.0) L 11/03/17 04:05 Monocytes % 14.9 % (2.0-10.0) H 11/03/17 04:05 Eosinophils % 4.3 % (0.0-5.0) 11/03/17 04:05 Basophils % 1.2 % (0.0-2.0) 11/03/17 04:05 Neutrophils (Manual) 84 % (40-80) H 11/01/17 06:04 Lymphocytes 6 % (20-50) L 11/01/17 06:04 Monocytes 6 % (2-10) 11/01/17 06:04 Eosinophils 0 % (0-5) 11/01/17 06:04 Basophils 0 % (0-3) 11/01/17 06:04 PT 11.0 SECONDS (9.5-11.5) 10/31/17 21:40 INR 1.06 (0.5-1.4) 10/31/17 21:40 Sodium 137 mEq/L (136-145) 11/03/17 04:05 Potassium 3.7 mEq/L (3.5-5.1) 11/03/17 04:05 Chloride 103 mEq/L (98-107) 11/03/17 04:05 Carbon Dioxide 25.2 mEq/L (21.0-31.0) 11/03/17 04:05 Anion Gap 12.5 (7.0-16.0) 11/03/17 04:05 BUN 18 mg/dL (7-25) 11/03/17 04:05 Creatinine 3.4 mg/dL (0.7-1.3) H 11/03/17 04:05 Est GFR ( Amer) TNP 11/03/17 04:05 Est GFR (Non-Af Amer) TNP 11/03/17 04:05 BUN/Creatinine Ratio 5.3 11/03/17 04:05 Glucose 128 mg/dL (70-105) H 11/03/17 04:05 Whole Bld Lactic Acid 1.36 mmol/L (0.60-1.99) 11/01/17 17:50 Calcium 9.4 mg/dL (8.6-10.3) 11/03/17 04:05 Total Bilirubin 0.6 mg/dL (0.3-1.0) 10/31/17 21:40 AST 38 U/L (13-39) 10/31/17 21:40 ALT 31 U/L (7-52) 10/31/17 21:40 Alkaline Phosphatase 109 U/L (34-104) H 10/31/17 21:40 Troponin I 0.04 ng/mL (0.01-0.05) 10/31/17 21:40 B-Natriuretic Peptide 959.0 pg/mL (5.0-100.0) H 11/03/17 04:05 Total Protein 7.1 gm/dL (6.0-8.3) 10/31/17 21:40 Albumin 3.4 gm/dL (4.2-5.5) L 10/31/17 21:40 Globulin 3.7 gm/dL 10/31/17 21:40 Albumin/Globulin Ratio 0.9 (1.0-1.8) L 10/31/17 21:40 Triglycerides 78 mg/dL (<150) 11/01/17 06:04 Cholesterol 89 mg/dL (<200) 11/01/17 06:04 LDL Cholesterol Direct 39 mg/dL (75-193) L 11/01/17 06:04 HDL Cholesterol 33 mg/dL (23-92) 11/01/17 06:04 TSH 0.55 uIU/ml (0.34-5.60) 11/01/17 06:04 Random Vancomycin 20.9 ug/mL (5.0-40.0) 11/03/17 04:05 - Physical Exam Vitals and I&O: Vital Signs Temp 98.7 F 11/03/17 16:00 Pulse 69 11/03/17 18:00 Resp 22 11/03/17 18:00 BP 113/68 11/03/17 18:00 Pulse Ox 98 11/03/17 18:00 Intake & Output 11/03/17 11/03/17 11/04/17 06:59 18:59 06:59 Intake Total 633.934 965.011 Balance 633.934 965.011 Weight (lbs) 155 lb 3.2 oz 155 lb Intake: Intake, IV Amount 333.934 265.011 Norepinephrine 4 mg In 233.934 215.011 Dextrose 5% 250 ml @ Per Protocol IV TITR PRN Rx#: [id number] Piperacillin Sodium/ 100 50 Tazobact 2.25 gm In Sodium Chloride 0.9% 50 ml @ 100 mls/hr IV Q8HR [facility] Rx#:[id number] Oral 300 700 Other: # Voids 2 2 # Bowel Movements 0 2 Stool Characteristics Formed Hard Brown Weight Source Bedscale Bedscale Active Medications: Current Medications Acetaminophen (Tylenol) 650 mg PO Q4H PRN PRN Reason: MILD PAIN 1-3/ FEVER ABOVE 101 Stop: 12/31/17 00:37 Last Admin: 11/03/17 04:49 Dose: 650 mg Aspirin (Aspirin Chewable) 81 mg PO DAILY [facility] Stop: 12/31/17 08:59 Last Admin: 11/03/17 08:47 Dose: 81 mg Atorvastatin Calcium (Lipitor) 10 mg PO HS [facility]; Protocol Stop: 12/31/17 20:59 Last Admin: 11/02/17 20:54 Dose: 10 mg Citalopram Hydrobromide (Celexa) 20 mg PO DAILY [facility]; Protocol Stop: 12/31/17 08:59 Last Admin: 11/03/17 08:47 Dose: 20 mg Donepezil HCl (Aricept) 5 mg PO DAILY [facility] Stop: 12/31/17 08:59 Last Admin: 11/03/17 08:48 Dose: 5 mg Ferrous Sulfate (Iron) 325 mg PO BID [facility] Stop: 12/31/17 08:59 Last Admin: 11/03/17 16:21 Dose: 325 mg Finasteride (Proscar) 5 mg PO DAILY [facility]; Protocol Stop: 12/31/17 08:59 Last Admin: 11/03/17 08:48 Dose: 5 mg Folic Acid (Folate) 1 mg PO DAILY [facility] Stop: 12/31/17 08:59 Last Admin: 11/03/17 08:47 Dose: 1 mg Heparin Sodium (Porcine) (Heparin) 5,000 units HD PRN PRN PRN Reason: DIALYSIS PORTS Stop: 12/31/17 08:51 Piperacillin Sod/Tazobactam (Sod 2.25 gm/ Sodium Chloride) 50 mls @ 100 mls/hr IV Q8HR [facility] Stop: 12/31/17 04:59 Last Infusion: 11/03/17 14:10 Dose: Infused Norepinephrine Bitartrate 4 mg (/ Dextrose) 254 mls @ 0 mls/hr IV TITR PRN; Protocol PRN Reason: BP MAINTENANCE (PER PROTOCOL) Stop: 12/31/17 16:01 Last Titration: 11/03/17 16:31 Dose: 0 mcg/min, 0 mls/hr Lactobacillus Rhamnosus (Culturelle 15b) 1 each PO DAILY [facility] Stop: 01/01/18 13:59 Last Admin: 11/03/17 08:47 Dose: 1 each Levetiracetam (Keppra) 500 mg PO BID [facility] Stop: 12/31/17 08:59 Last Admin: 11/03/17 16:21 Dose: 500 mg Lorazepam (Ativan) 1 mg IVP Q6HR PRN; Protocol PRN Reason: Seizure Stop: 12/31/17 08:51 Last Admin: 11/03/17 12:04 Dose: 1 mg Mirtazapine (Remeron) 15 mg PO HS [facility]; Protocol Stop: 12/31/17 20:59 Last Admin: 11/02/17 20:59 Dose: Not Given Miscellaneous (Vancomycin Iv Per Pharmacy) 1 ea PRN PRN PRN Reason: PROTOCOL Stop: 12/31/17 01:03 Miscellaneous (Probiotic Screen) 1 ea PRN PRN PRN Reason: PROTOCOL Stop: 01/01/18 12:28 Mupirocin (Bactroban Oint) 1 appl NS BID [facility] Stop: 11/07/17 09:01 Last Admin: 11/03/17 16:22 Dose: 1 appl Olanzapine (Zyprexa) 2.5 mg PO HS [facility]; Protocol Stop: 12/31/17 20:59 Last Admin: 11/02/17 20:59 Dose: Not Given Pantoprazole Sodium (Protonix) 40 mg PO DAILY [facility] Stop: 12/31/17 08:59 Last Admin: 11/03/17 08:48 Dose: 40 mg Polyethylene Glycol (Miralax) 17 gm PO DAILY [facility] Stop: 12/31/17 12:59 Last Admin: 11/03/17 08:47 Dose: 17 gm Tamsulosin HCl (Flomax) 0.4 mg PO BID [facility] Stop: 12/31/17 08:59 Last Admin: 11/03/17 16:21 Dose: 0.4 mg General: weak HEENT: NC/AT, PERRLA Neck: Supple Lungs: CTAB Abdomen: soft, non-tender, non-distended Extremities: excoriation Neurological: unable to follow command, bedbound - Procedures Procedures: Procedures Procedure Code Date INSERTION OF INFUSION DEV INTO SUP VENA CAVA, PERC APPROACH 56UU82B 01/16/17 PERFORMANCE OF URINARY FILTRATION, <6 HRS/DAY [id number] 09/01/17 ULTRASONOGRAPHY OF SUPERIOR VENA CAVA, GUIDANCE [id number] 01/16/17 Internal Medicine Assmt/Plan - Assessment Assessment: hypotension-better sepsis pna ckd stage 5 on hd dm2 dnr status - Plan Plan: continue ivabx as per id continue hd as per renal continue current plan of care Nutritional Asmnt/Malnutr-PDOC - Dietary Evaluation Malnutrition Findings (Please click <Entered> for more info): Nutritional Asmnt/Malnutrition Start: 11/02/17 16: 00 Text: Status: Complete Freq: Protocol: Document 11/02/17 16:02 CARMEN (Rec: 11/02/17 16:14 GEORGECRYSTAL [email or web address]) Nutritional Asmnt/Malnutrition Patient General Information Nutritional Screening High Risk Diagnosis sepsis, PNA Pertinent Medical Hx/Surgical Hx HTN, Dm, CVA, ESRD, dementia Subjective Information Pt seen resting in bed at time of visit. Pt is now on NPO for possible surgery. Per nurse note, pt had dialysis today. Pt is on Levophed noted . Current Diet Order/ Nutrition Support NPO Pertinent Medications lipitor, iron, folate, culturelle, remeron, levophed, protonix, piperacillin, miralax Pertinent Labs 11/02 BUN 34, Cr 5.0, glucose 112 11/01 Na 135, Cr 3.7, glucose 101 Nutritional Hx/Data Height 5 ft 6 in Height (Calculated Centimeters) 167.6 Current Weight (lbs) 148 lb Weight (Calculated Kilograms) 67.1 Weight (Calculated Grams) 16851.7 [place] Body Weight 142 Body Mass Index (BMI) 23.8 Weight Status Approriate GI Symptoms GI Symptoms None Last BM no BM Difficult in: None Skin Integrity/Comment: opening above permacath site reddned to left arm Estimated Nutritional Goals BEE in Kcals: Using Current wt Calories/Kcals/Kg 27-32 Kcals Calculated 1554-0392 Protein: Using Current wt Protein g/k.2 Protein Calculated 80 Fluid: ml 1809-2144ml (1ml/kcal) Nutritional Problem 2. Problem Problem increased nutrition needs Etiology increased metabolic demand Signs/Symptoms: pt on dialysis and dx of sepsis, PNA 1. Problem Problem altered nutrition related labs Etiology hx of ESRD Signs/Symptoms: BUN 34, Cr 5.0, Intervention/Recommendation Comments 1. Monitor NPO status. Resume oral diet when medically appropriate. If PO intake <50% , will consider offer Nepro to increase nutrition itnake. 2. Monitor PO intake, wt, labs and skin integrity 3. F/U as hifh risk in 2-3 days, 11/04-11/05 Expected Outcomes/Goals Expected Outcomes/Goals 1. PO intake to meet at least 75% of nutritional needs. 2. Wt stability, skin to remain intact, labs to approach WNL.
[2017-11-03] MEDS: Atorvastatin Calcium 10 MG TAB PO SCH (20:27)
--- NOTE | 2017-11-03 23:45 | Infectious Disease Prog Note ---
Infectious Disease Subjective - Review of Systems Service Date: 11/03/17 Subjective: There is no new change. Off on Levophed. Blood cultures accompanied cocci. Infectious Disease Objective - Results Result Diagrams: 11/04/17 06:30 11/04/17 06:30 Recent Labs: Laboratory Last Values WBC 5.7 Th/cmm (4.8-10.8) 11/03/17 04:05 RBC 3.11 Mil/cmm (3.80-5.80) L 11/03/17 04:05 Hgb 9.9 gm/dL (12-16) L 11/03/17 04:05 Hct 29.0 % (41.0-60) L 11/03/17 04:05 MCV 93.2 fl (80-99) 11/03/17 04:05 MCH 31.9 pg (27.0-31.0) H 11/03/17 04:05 MCHC Differential 34.2 pg (28.0-36.0) 11/03/17 04:05 RDW 13.4 % (11.5-20.0) 11/03/17 04:05 Plt Count 156 Th/cmm (150-400) 11/03/17 04:05 MPV 7.9 fl 11/03/17 04:05 Add Manual Diff YES 11/01/17 06:04 Neutrophils % 67.5 % (40.0-80.0) 11/03/17 04:05 Band Neutrophils % 4 % (0-10) 11/01/17 06:04 Lymphocytes % 12.1 % (20.0-50.0) L 11/03/17 04:05 Monocytes % 14.9 % (2.0-10.0) H 11/03/17 04:05 Eosinophils % 4.3 % (0.0-5.0) 11/03/17 04:05 Basophils % 1.2 % (0.0-2.0) 11/03/17 04:05 Neutrophils (Manual) 84 % (40-80) H 11/01/17 06:04 Lymphocytes 6 % (20-50) L 11/01/17 06:04 Monocytes 6 % (2-10) 11/01/17 06:04 Eosinophils 0 % (0-5) 11/01/17 06:04 Basophils 0 % (0-3) 11/01/17 06:04 PT 11.0 SECONDS (9.5-11.5) 10/31/17 21:40 INR 1.06 (0.5-1.4) 10/31/17 21:40 Sodium 137 mEq/L (136-145) 11/03/17 04:05 Potassium 3.7 mEq/L (3.5-5.1) 11/03/17 04:05 Chloride 103 mEq/L (98-107) 11/03/17 04:05 Carbon Dioxide 25.2 mEq/L (21.0-31.0) 11/03/17 04:05 Anion Gap 12.5 (7.0-16.0) 11/03/17 04:05 BUN 18 mg/dL (7-25) 11/03/17 04:05 Creatinine 3.4 mg/dL (0.7-1.3) H 11/03/17 04:05 Est GFR ( Amer) TNP 11/03/17 04:05 Est GFR (Non-Af Amer) TNP 11/03/17 04:05 BUN/Creatinine Ratio 5.3 11/03/17 04:05 Glucose 128 mg/dL (70-105) H 11/03/17 04:05 Whole Bld Lactic Acid 1.36 mmol/L (0.60-1.99) 11/01/17 17:50 Calcium 9.4 mg/dL (8.6-10.3) 11/03/17 04:05 Total Bilirubin 0.6 mg/dL (0.3-1.0) 10/31/17 21:40 AST 38 U/L (13-39) 10/31/17 21:40 ALT 31 U/L (7-52) 10/31/17 21:40 Alkaline Phosphatase 109 U/L (34-104) H 10/31/17 21:40 Troponin I 0.04 ng/mL (0.01-0.05) 10/31/17 21:40 B-Natriuretic Peptide 959.0 pg/mL (5.0-100.0) H 11/03/17 04:05 Total Protein 7.1 gm/dL (6.0-8.3) 10/31/17 21:40 Albumin 3.4 gm/dL (4.2-5.5) L 10/31/17 21:40 Globulin 3.7 gm/dL 10/31/17 21:40 Albumin/Globulin Ratio 0.9 (1.0-1.8) L 10/31/17 21:40 Triglycerides 78 mg/dL (<150) 11/01/17 06:04 Cholesterol 89 mg/dL (<200) 11/01/17 06:04 LDL Cholesterol Direct 39 mg/dL (75-193) L 11/01/17 06:04 HDL Cholesterol 33 mg/dL (23-92) 11/01/17 06:04 TSH 0.55 uIU/ml (0.34-5.60) 11/01/17 06:04 Random Vancomycin 20.9 ug/mL (5.0-40.0) 11/03/17 04:05 - Physical Exam Vitals and I&O: Vital Signs Temp 97.8 F 11/03/17 19:00 Pulse 78 11/03/17 21:00 Resp 22 11/03/17 21:00 BP 105/64 11/03/17 21:00 Pulse Ox 98 11/03/17 21:00 Intake & Output 11/03/17 11/03/17 11/04/17 06:59 18:59 06:59 Intake Total 633.934 965.011 50 Balance 633.934 965.011 50 Weight (lbs) 70.398 kg 70.307 kg Intake: Intake, IV Amount 333.934 265.011 50 Norepinephrine 4 mg In 233.934 215.011 Dextrose 5% 250 ml @ Per Protocol IV TITR PRN Rx#: [id number] Piperacillin Sodium/ 100 50 50 Tazobact 2.25 gm In Sodium Chloride 0.9% 50 ml @ 100 mls/hr IV Q8HR [facility] Rx#:[id number] Oral 300 700 Other: # Voids 2 2 # Bowel Movements 0 2 Stool Characteristics Formed Soft Hard Brown Brown Green Weight Source Bedscale Bedscale Active Medications: Current Medications Acetaminophen (Tylenol) 650 mg PO Q4H PRN PRN Reason: MILD PAIN 1-3/ FEVER ABOVE 101 Stop: 12/31/17 00:37 Last Admin: 11/03/17 04:49 Dose: 650 mg Aspirin (Aspirin Chewable) 81 mg PO DAILY [facility] Stop: 12/31/17 08:59 Last Admin: 11/03/17 08:47 Dose: 81 mg Atorvastatin Calcium (Lipitor) 10 mg PO HS [facility]; Protocol Stop: 12/31/17 20:59 Last Admin: 11/03/17 20:27 Dose: 10 mg Citalopram Hydrobromide (Celexa) 20 mg PO DAILY [facility]; Protocol Stop: 12/31/17 08:59 Last Admin: 11/03/17 08:47 Dose: 20 mg Donepezil HCl (Aricept) 5 mg PO DAILY [facility] Stop: 12/31/17 08:59 Last Admin: 11/03/17 08:48 Dose: 5 mg Ferrous Sulfate (Iron) 325 mg PO BID [facility] Stop: 12/31/17 08:59 Last Admin: 11/03/17 16:21 Dose: 325 mg Finasteride (Proscar) 5 mg PO DAILY [facility]; Protocol Stop: 12/31/17 08:59 Last Admin: 11/03/17 08:48 Dose: 5 mg Folic Acid (Folate) 1 mg PO DAILY [facility] Stop: 12/31/17 08:59 Last Admin: 11/03/17 08:47 Dose: 1 mg Heparin Sodium (Porcine) (Heparin) 5,000 units HD PRN PRN PRN Reason: DIALYSIS PORTS Stop: 12/31/17 08:51 Piperacillin Sod/Tazobactam (Sod 2.25 gm/ Sodium Chloride) 50 mls @ 100 mls/hr IV Q8HR [facility] Stop: 12/31/17 04:59 Last Infusion: 11/03/17 20:57 Dose: Infused Norepinephrine Bitartrate 4 mg (/ Dextrose) 254 mls @ 0 mls/hr IV TITR PRN; Protocol PRN Reason: BP MAINTENANCE (PER PROTOCOL) Stop: 12/31/17 16:01 Last Titration: 11/03/17 16:31 Dose: 0 mcg/min, 0 mls/hr Lactobacillus Rhamnosus (Culturelle 15b) 1 each PO DAILY [facility] Stop: 01/01/18 13:59 Last Admin: 11/03/17 08:47 Dose: 1 each Levetiracetam (Keppra) 500 mg PO BID [facility] Stop: 12/31/17 08:59 Last Admin: 11/03/17 16:21 Dose: 500 mg Lorazepam (Ativan) 1 mg IVP Q6HR PRN; Protocol PRN Reason: Seizure Stop: 12/31/17 08:51 Last Admin: 11/03/17 12:04 Dose: 1 mg Mirtazapine (Remeron) 15 mg PO HS [facility]; Protocol Stop: 12/31/17 20:59 Last Admin: 11/03/17 22:02 Dose: Not Given Miscellaneous (Vancomycin Iv Per Pharmacy) 1 ea PRN PRN PRN Reason: PROTOCOL Stop: 12/31/17 01:03 Miscellaneous (Probiotic Screen) 1 ea PRN PRN PRN Reason: PROTOCOL Stop: 01/01/18 12:28 Mupirocin (Bactroban Oint) 1 appl NS BID [facility] Stop: 11/07/17 09:01 Last Admin: 11/03/17 16:22 Dose: 1 appl Olanzapine (Zyprexa) 2.5 mg PO HS [facility]; Protocol Stop: 12/31/17 20:59 Last Admin: 11/03/17 22:02 Dose: Not Given Pantoprazole Sodium (Protonix) 40 mg PO DAILY [facility] Stop: 12/31/17 08:59 Last Admin: 11/03/17 08:48 Dose: 40 mg Polyethylene Glycol (Miralax) 17 gm PO DAILY [facility] Stop: 12/31/17 12:59 Last Admin: 11/03/17 08:47 Dose: 17 gm Tamsulosin HCl (Flomax) 0.4 mg PO BID [facility] Stop: 12/31/17 08:59 Last Admin: 11/03/17 16:21 Dose: 0.4 mg General: no acute distress, well developed, well nourished HEENT: atraumatic, normocephalic, PERRLA Neck: supple, no thyromegaly Cardiovascular: S1S2, regular Lungs: clear to auscultation bilaterally, clear to percussion Abdomen: soft, no tender, no distended, no rebound Extremities: no cyanosis, no clubbing Neurological: awake, alert, oriented Skin: intact - Procedures Procedures: Procedures Procedure Code Date INSERTION OF INFUSION DEV INTO SUP VENA CAVA, PERC APPROACH [id number] 01/16/17 PERFORMANCE OF URINARY FILTRATION, <6 HRS/DAY 8G9H70P 09/01/17 ULTRASONOGRAPHY OF SUPERIOR VENA CAVA, GUIDANCE [id number] 01/16/17 Infectious Disease Assmt/Plan - Problem List Patient Problems: All Active Problems HTN (hypertension) (Acute) I10 Hx of diabetes mellitus (Acute) Z86.39 Parkinson disease (Acute) G20 Septicemia (Acute) A41.9 infected cath (Acute) - Assessment Assessment: 1. Sepsis. Septic shock. Pneumonia versus line sepsis. Staph sepsis, 3/3 sets are positive 2. Pneumonia. 3. 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 4. Diabetes mellitus type 2. 5. Hypertension. - Plan Plan: Continue same management. Antibiotic-dang vancomycin IV and Zosyn. Nutritional Asmnt/Malnutr-PDOC - Dietary Evaluation Malnutrition Findings (Please click <Entered> for more info): Nutritional Asmnt/Malnutrition Start: 11/02/17 16: 00 Text: Status: Complete Freq: Protocol: Document 11/02/17 16:02 CARMEN (Rec: 11/02/17 16:14 CARMEN [email or web address]) Nutritional Asmnt/Malnutrition Patient General Information Nutritional Screening High Risk Diagnosis sepsis, PNA Pertinent Medical Hx/Surgical Hx HTN, Dm, CVA, ESRD, dementia Subjective Information Pt seen resting in bed at time of visit. Pt is now on NPO for possible surgery. Per nurse note, pt had dialysis today. Pt is on Levophed noted . Current Diet Order/ Nutrition Support NPO Pertinent Medications lipitor, iron, folate, culturelle, remeron, levophed, protonix, piperacillin, miralax Pertinent Labs 11/02 BUN 34, Cr 5.0, glucose 112 9/9 Na 135, Cr 3.7, glucose 101 Nutritional Hx/Data Height 1.68 m Height (Calculated Centimeters) 167.6 Current Weight (lbs) 67.132 kg Weight (Calculated Kilograms) 67.1 Weight (Calculated Grams) 71727.7 [place] Body Weight 142 Body Mass Index (BMI) 23.8 Weight Status Approriate GI Symptoms GI Symptoms None Last BM no BM Difficult in: None Skin Integrity/Comment: opening above permacath site reddned to left arm Estimated Nutritional Goals BEE in Kcals: Using Current wt Calories/Kcals/Kg 27-32 Kcals Calculated 9041-9370 Protein: Using Current wt Protein g/k.2 Protein Calculated 80 Fluid: ml 1809-2144ml (1ml/kcal) Nutritional Problem 2. Problem Problem increased nutrition needs Etiology increased metabolic demand Signs/Symptoms: pt on dialysis and dx of sepsis, PNA 1. Problem Problem altered nutrition related labs Etiology hx of ESRD Signs/Symptoms: BUN 34, Cr 5.0, Intervention/Recommendation Comments 1. Monitor NPO status. Resume oral diet when medically appropriate. If PO intake <50% , will consider offer Nepro to increase nutrition itnake. 2. Monitor PO intake, wt, labs and skin integrity 3. F/U as hifh risk in 2-3 days, 11/04-11/05 Expected Outcomes/Goals Expected Outcomes/Goals 1. PO intake to meet at least 75% of nutritional needs. 2. Wt stability, skin to remain intact, labs to approach WNL.
[2017-11-04 07:00] LABS: % BASOPHILS 1.2 % (0.0-2.0); % LYMPHOCYTES 11.5 % (20.0-50.0); % MONOCYTES 12.4 % (2.0-10.0); % NEUTROPHILS 67.9 % (40.0-80.0); BASOPHILE ABSOLUTE 0.1 Th/cumm (0-0.2); EOSINOPHILE ABSOLUTE 0.3 Th/cmm (0.1-0.4); HEMATOCRIT 27.3 % (41.0-60); HEMOGLOBIN 9.4 gm/dL (12-16); LYMPHOCYTE ABSOLUTE 0.5 Th/cmm (1.5-3.0); MEAN CORPUSCULAR HEMOGLOBIN 31.9 pg (27.0-31.0); MEAN CORPUSCULAR HGB CONC 34.3 pg (28.0-36.0); MEAN PLATELET VOLUME 7.6 fl; MONOCYTE ABSOLUTE 0.5 Th/cmm (0.3-1.0); NEUTROPHILE ABSOLUTE 2.9 Th/cmm (1.8-8.0); PLATELET COUNT 151 Th/cmm (150-400); RED BLOOD COUNT 2.94 Mil/cmm (3.80-5.80); RED CELL DISTRIBUTION WIDTH 13.6 % (11.5-20.0); WHITE BLOOD COUNT 4.3 Th/cmm (4.8-10.8)
[2017-11-04 07:09] LABS: ANION GAP 11.5 (7.0-16.0); BUN - UREA NITROGEN 24 mg/dL (7-25); CALCIUM SERUM 9.4 mg/dL (8.6-10.3); CARBON DIOXIDE 25.8 mEq/L (21.0-31.0); CHLORIDE 103 mEq/L (98-107); GLUCOSE 87 mg/dL (70-105); POTASSIUM SERUM 3.3 mEq/L (3.5-5.1); SODIUM SERUM 137 mEq/L (136-145)
[2017-11-04 07:30] LABS: CREATININE - SERUM 4.4 mg/dL (0.7-1.3)
[2017-11-04] MEDS: Ferrous Sulfate 325 MG TAB PO SCH ×2 (08:30→16:49)
[2017-11-04] MEDS: POLYETHYLENE GLYCOL 3350 17 GM PACK PO SCH (08:30)
[2017-11-04] MEDS: Lactobacillus Rhamnosus GG 15 Billion CFU CAP.SPRINK PO SCH (08:30)
[2017-11-04] MEDS: Pantoprazole 40 mg EC Tab PO SCH (08:31)
[2017-11-04] MEDS: Aspirin 81mg Chewable Tab PO SCH (08:31)
--- NOTE | 2017-11-04 09:28 | Operative Report ---
DATE OF SURGERY: 11/03/2017 PREOP DIAGNOSES: 1. Septicemia. 2. Infected Perm-A-Cath, right internal jugular vein. 3. Diabetes mellitus. 4. Hypertension. 5. Parkinson disease. POSTOPERATIVE DIAGNOSES: 1. Septicemia. 2. Infected Perm-A-Cath, right internal jugular vein. 3. Diabetes mellitus. 4. Hypertension. 5. Parkinson disease. OPERATION DONE: 1. Removal of tunneled catheter, right internal jugular vein. 2. Culture and sensitivity of catheter tip. DESCRIPTION OF PROCEDURE: The patient was given Ativan IV 2 mg. The catheter exit site in the right upper chest was prepped with Betadine. 1% lidocaine was used to infiltrate the exit site. Scissors were then used to detach the cuff from the subcutaneous tissues. The catheter was pulled out with pressure on the neck and the tip was placed in a sterile cup for culture and sensitivity. The patient tolerated the procedure well. JOB# [id number]
--- NOTE | 2017-11-04 09:40 | Consultation ---
DATE OF CONSULTATION: 11/01/2017 VASCULAR CONSULTATION REFERRING PHYSICIAN: Dr. Wiggins. REASON FOR CONSULTATION: Septicemia. Thank you for referring this patient to me. HISTORY OF PRESENT ILLNESS: This is a 77-year-old male who came in because of fever of 103. He has a known end-stage renal disease, on hemodialysis via Perm-A-Cath in the right internal jugular location. At this point, he has eroded sort of skin, likely the etiology of the septicemia. Additional comorbidities include hypertension, diabetes mellitus, CVA, dementia, Parkinson's disease. LABORATORY STUDIES: Show WBC to be within normal limits. Hemoglobin low at 8.9, platelet count is slightly low at 125,000. BUN is 34, creatinine of 5.0. The blood cultures show gram-negative cocci in clusters. The patient has been seen by ID baby registry sales consultant and purification director. RECOMMENDATIONS: Suggest removal of the Perm-A-Cath and culture of the tip. JOB# [id number]
[2017-11-04] MEDS ORDERED: Potassium Chloride Elixir 20 mEq /15 mL UDC PO ONE (10:34)
--- NOTE | 2017-11-04 12:25 | General Progress Note ---
Subjective - Review of Systems Events since last encounter: patient in icu has removal of tunneled cath Subjective: as per order sheet will monitor Objective - Results Result Diagrams: 11/04/17 06:30 11/04/17 06:30 Recent Labs: Laboratory Last Values WBC 4.3 Th/cmm (4.8-10.8) L 11/04/17 06:30 RBC 2.94 Mil/cmm (3.80-5.80) L 11/04/17 06:30 Hgb 9.4 gm/dL (12-16) L 11/04/17 06:30 Hct 27.3 % (41.0-60) L 11/04/17 06:30 MCV 93.0 fl (80-99) 11/04/17 06:30 MCH 31.9 pg (27.0-31.0) H 11/04/17 06:30 MCHC Differential 34.3 pg (28.0-36.0) 11/04/17 06:30 RDW 13.6 % (11.5-20.0) 11/04/17 06:30 Plt Count 151 Th/cmm (150-400) 11/04/17 06:30 MPV 7.6 fl 11/04/17 06:30 Add Manual Diff YES 11/01/17 06:04 Neutrophils % 67.9 % (40.0-80.0) 11/04/17 06:30 Band Neutrophils % 4 % (0-10) 11/01/17 06:04 Lymphocytes % 11.5 % (20.0-50.0) L 11/04/17 06:30 Monocytes % 12.4 % (2.0-10.0) H 11/04/17 06:30 Eosinophils % 7.0 % (0.0-5.0) H 11/04/17 06:30 Basophils % 1.2 % (0.0-2.0) 11/04/17 06:30 Neutrophils (Manual) 84 % (40-80) H 11/01/17 06:04 Lymphocytes 6 % (20-50) L 11/01/17 06:04 Monocytes 6 % (2-10) 11/01/17 06:04 Eosinophils 0 % (0-5) 11/01/17 06:04 Basophils 0 % (0-3) 11/01/17 06:04 PT 11.0 SECONDS (9.5-11.5) 10/31/17 21:40 INR 1.06 (0.5-1.4) 10/31/17 21:40 Sodium 137 mEq/L (136-145) 11/04/17 06:30 Potassium 3.3 mEq/L (3.5-5.1) L 11/04/17 06:30 Chloride 103 mEq/L (98-107) 11/04/17 06:30 Carbon Dioxide 25.8 mEq/L (21.0-31.0) 11/04/17 06:30 Anion Gap 11.5 (7.0-16.0) 11/04/17 06:30 BUN 24 mg/dL (7-25) 11/04/17 06:30 Creatinine 4.4 mg/dL (0.7-1.3) H* 11/04/17 06:30 Est GFR ( Amer) TNP 11/04/17 06:30 Est GFR (Non-Af Amer) TNP 11/04/17 06:30 BUN/Creatinine Ratio 5.5 11/04/17 06:30 Glucose 87 mg/dL (70-105) 11/04/17 06:30 Whole Bld Lactic Acid 1.36 mmol/L (0.60-1.99) 11/01/17 17:50 Calcium 9.4 mg/dL (8.6-10.3) 11/04/17 06:30 Total Bilirubin 0.6 mg/dL (0.3-1.0) 10/31/17 21:40 AST 38 U/L (13-39) 10/31/17 21:40 ALT 31 U/L (7-52) 10/31/17 21:40 Alkaline Phosphatase 109 U/L (34-104) H 10/31/17 21:40 Troponin I 0.04 ng/mL (0.01-0.05) 10/31/17 21:40 B-Natriuretic Peptide 959.0 pg/mL (5.0-100.0) H 11/03/17 04:05 Total Protein 7.1 gm/dL (6.0-8.3) 10/31/17 21:40 Albumin 3.4 gm/dL (4.2-5.5) L 10/31/17 21:40 Globulin 3.7 gm/dL 10/31/17 21:40 Albumin/Globulin Ratio 0.9 (1.0-1.8) L 10/31/17 21:40 Triglycerides 78 mg/dL (<150) 11/01/17 06:04 Cholesterol 89 mg/dL (<200) 11/01/17 06:04 LDL Cholesterol Direct 39 mg/dL (75-193) L 11/01/17 06:04 HDL Cholesterol 33 mg/dL (23-92) 11/01/17 06:04 TSH 0.55 uIU/ml (0.34-5.60) 11/01/17 06:04 Random Vancomycin 28.1 ug/mL (5.0-40.0) 11/04/17 06:30 - Physical Exam Vitals and I&O: Vital Signs Temp 98 F 11/04/17 08:00 Pulse 61 11/04/17 10:00 Resp 15 11/04/17 10:00 BP 99/63 11/04/17 10:00 Pulse Ox 99 11/04/17 10:00 Intake & Output 11/03/17 11/04/17 11/04/17 18:59 06:59 18:59 Intake Total 965.011 180 Balance 965.011 180 Weight (lbs) 70.307 kg 71.804 kg Intake: Intake, IV Amount 265.011 100 Norepinephrine 4 mg In 215.011 Dextrose 5% 250 ml @ Per Protocol IV TITR PRN Rx#: [id number] Piperacillin Sodium/ 50 100 Tazobact 2.25 gm In Sodium Chloride 0.9% 50 ml @ 100 mls/hr IV Q8HR [facility] Rx#:[id number] Oral 700 80 Other: # Voids 2 1 # Bowel Movements 2 1 Stool Characteristics Formed Soft Hard Brown Brown Green Weight Source Bedscale Bedscale Active Medications: Current Medications Acetaminophen (Tylenol) 650 mg PO Q4H PRN PRN Reason: MILD PAIN 1-3/ FEVER ABOVE 101 Stop: 12/31/17 00:37 Last Admin: 11/03/17 04:49 Dose: 650 mg Aspirin (Aspirin Chewable) 81 mg PO DAILY [facility] Stop: 12/31/17 08:59 Last Admin: 11/04/17 08:31 Dose: 81 mg Atorvastatin Calcium (Lipitor) 10 mg PO HS [facility]; Protocol Stop: 12/31/17 20:59 Last Admin: 11/03/17 20:27 Dose: 10 mg Citalopram Hydrobromide (Celexa) 20 mg PO DAILY [facility]; Protocol Stop: 12/31/17 08:59 Last Admin: 11/04/17 09:00 Dose: 20 mg Donepezil HCl (Aricept) 5 mg PO DAILY [facility] Stop: 12/31/17 08:59 Last Admin: 11/04/17 08:31 Dose: 5 mg Ferrous Sulfate (Iron) 325 mg PO BID [facility] Stop: 12/31/17 08:59 Last Admin: 11/04/17 08:30 Dose: 325 mg Finasteride (Proscar) 5 mg PO DAILY [facility]; Protocol Stop: 12/31/17 08:59 Last Admin: 11/04/17 08:30 Dose: 5 mg Folic Acid (Folate) 1 mg PO DAILY [facility] Stop: 12/31/17 08:59 Last Admin: 11/04/17 08:30 Dose: 1 mg Heparin Sodium (Porcine) (Heparin) 5,000 units HD PRN PRN PRN Reason: DIALYSIS PORTS Stop: 12/31/17 08:51 Piperacillin Sod/Tazobactam (Sod 2.25 gm/ Sodium Chloride) 50 mls @ 100 mls/hr IV Q8HR [facility] Stop: 12/31/17 04:59 Last Infusion: 11/04/17 05:03 Dose: Infused Norepinephrine Bitartrate 4 mg (/ Dextrose) 254 mls @ 0 mls/hr IV TITR PRN; Protocol PRN Reason: BP MAINTENANCE (PER PROTOCOL) Stop: 12/31/17 16:01 Last Titration: 11/03/17 16:31 Dose: 0 mcg/min, 0 mls/hr Lactobacillus Rhamnosus (Culturelle 15b) 1 each PO DAILY [facility] Stop: 01/01/18 13:59 Last Admin: 11/04/17 08:30 Dose: 1 each Levetiracetam (Keppra) 500 mg PO BID [facility] Stop: 12/31/17 08:59 Last Admin: 11/04/17 08:30 Dose: 500 mg Lorazepam (Ativan) 1 mg IVP Q6HR PRN; Protocol PRN Reason: Seizure Stop: 12/31/17 08:51 Last Admin: 11/03/17 12:04 Dose: 1 mg Mirtazapine (Remeron) 15 mg PO HS [facility]; Protocol Stop: 12/31/17 20:59 Last Admin: 11/03/17 22:02 Dose: Not Given Miscellaneous (Vancomycin Iv Per Pharmacy) 1 ea PRN PRN PRN Reason: PROTOCOL Stop: 12/31/17 01:03 Miscellaneous (Probiotic Screen) 1 ea PRN PRN PRN Reason: PROTOCOL Stop: 01/01/18 12:28 Mupirocin (Bactroban Oint) 1 appl NS BID [facility] Stop: 11/07/17 09:01 Last Admin: 11/04/17 08:31 Dose: 1 appl Olanzapine (Zyprexa) 2.5 mg PO HS [facility]; Protocol Stop: 12/31/17 20:59 Last Admin: 11/03/17 22:02 Dose: Not Given Pantoprazole Sodium (Protonix) 40 mg PO DAILY [facility] Stop: 12/31/17 08:59 Last Admin: 11/04/17 08:31 Dose: 40 mg Polyethylene Glycol (Miralax) 17 gm PO DAILY [facility] Stop: 12/31/17 12:59 Last Admin: 11/04/17 08:30 Dose: 17 gm Tamsulosin HCl (Flomax) 0.4 mg PO BID [facility] Stop: 12/31/17 08:59 Last Admin: 11/04/17 08:31 Dose: 0.4 mg General: Alert, No acute distress HEENT: Atraumatic, PERRLA, Mucous membr. moist/pink Neck: Supple, +2 carotid pulse wo bruit Cardiovascular: Regular rate, Normal S1, Normal S2 Lungs: Normal air movement Abdomen: Bowel sounds, Soft Extremities: no Edema Neurological: Sensation intact Skin: no Rash Psych/Mental Status: Mood NL - Procedures Procedures: Procedures Procedure Code Date INSERTION OF INFUSION DEV INTO SUP VENA CAVA, PERC APPROACH 63DA10I 01/16/17 PERFORMANCE OF URINARY FILTRATION, <6 HRS/DAY [id number] 09/01/17 ULTRASONOGRAPHY OF SUPERIOR VENA CAVA, GUIDANCE [id number] 01/16/17 Assessment/Plan - Problem List Patient Problems: All Active Problems HTN (hypertension) (Acute) I10 Hx of diabetes mellitus (Acute) Z86.39 Parkinson disease (Acute) G20 Septicemia (Acute) A41.9 infected cath (Acute) Nutritional Asmnt/Malnutr-PDOC - Dietary Evaluation Malnutrition Findings (Please click <Entered> for more info): Nutritional Asmnt/Malnutrition Start: 11/02/17 16: 00 Text: Status: Complete Freq: Protocol: Document 11/02/17 16:02 GEORGEDALLING (Rec: 11/02/17 16:14 DALLIN [id number]) Nutritional Asmnt/Malnutrition Patient General Information Nutritional Screening High Risk Diagnosis sepsis, PNA Pertinent Medical Hx/Surgical Hx HTN, Dm, CVA, ESRD, dementia Subjective Information Pt seen resting in bed at time of visit. Pt is now on NPO for possible surgery. Per nurse note, pt had dialysis today. Pt is on Levophed noted . Current Diet Order/ Nutrition Support NPO Pertinent Medications lipitor, iron, folate, culturelle, remeron, levophed, protonix, piperacillin, miralax Pertinent Labs 11/02 BUN 34, Cr 5.0, glucose 112 11/01 Na 135, Cr 3.7, glucose 101 Nutritional Hx/Data Height 1.68 m Height (Calculated Centimeters) 167.6 Current Weight (lbs) 67.132 kg Weight (Calculated Kilograms) 67.1 Weight (Calculated Grams) 25509.7 [place] Body Weight 142 Body Mass Index (BMI) 23.8 Weight Status Approriate GI Symptoms GI Symptoms None Last BM no BM Difficult in: None Skin Integrity/Comment: opening above permacath site reddned to left arm Estimated Nutritional Goals BEE in Kcals: Using Current wt Calories/Kcals/Kg 27-32 Kcals Calculated 1077-1882 Protein: Using Current wt Protein g/k.2 Protein Calculated 80 Fluid: ml 1809-2144ml (1ml/kcal) Nutritional Problem 2. Problem Problem increased nutrition needs Etiology increased metabolic demand Signs/Symptoms: pt on dialysis and dx of sepsis, PNA 1. Problem Problem altered nutrition related labs Etiology hx of ESRD Signs/Symptoms: BUN 34, Cr 5.0, Intervention/Recommendation Comments 1. Monitor NPO status. Resume oral diet when medically appropriate. If PO intake <50% , will consider offer Nepro to increase nutrition itnake. 2. Monitor PO intake, wt, labs and skin integrity 3. F/U as hifh risk in 2-3 days, 11/04-11/05 Expected Outcomes/Goals Expected Outcomes/Goals 1. PO intake to meet at least 75% of nutritional needs. 2. Wt stability, skin to remain intact, labs to approach WNL.
--- NOTE | 2017-11-04 13:51 | General Progress Note ---
Subjective - Review of Systems Service Date: 11/04/17 Subjective: more interactive, comfortable Objective - Results Result Diagrams: 11/04/17 06:30 11/04/17 06:30 Recent Labs: Laboratory Last Values WBC 4.3 Th/cmm (4.8-10.8) L 11/04/17 06:30 RBC 2.94 Mil/cmm (3.80-5.80) L 11/04/17 06:30 Hgb 9.4 gm/dL (12-16) L 11/04/17 06:30 Hct 27.3 % (41.0-60) L 11/04/17 06:30 MCV 93.0 fl (80-99) 11/04/17 06:30 MCH 31.9 pg (27.0-31.0) H 11/04/17 06:30 MCHC Differential 34.3 pg (28.0-36.0) 11/04/17 06:30 RDW 13.6 % (11.5-20.0) 11/04/17 06:30 Plt Count 151 Th/cmm (150-400) 11/04/17 06:30 MPV 7.6 fl 11/04/17 06:30 Add Manual Diff YES 11/01/17 06:04 Neutrophils % 67.9 % (40.0-80.0) 11/04/17 06:30 Band Neutrophils % 4 % (0-10) 11/01/17 06:04 Lymphocytes % 11.5 % (20.0-50.0) L 11/04/17 06:30 Monocytes % 12.4 % (2.0-10.0) H 11/04/17 06:30 Eosinophils % 7.0 % (0.0-5.0) H 11/04/17 06:30 Basophils % 1.2 % (0.0-2.0) 11/04/17 06:30 Neutrophils (Manual) 84 % (40-80) H 11/01/17 06:04 Lymphocytes 6 % (20-50) L 11/01/17 06:04 Monocytes 6 % (2-10) 11/01/17 06:04 Eosinophils 0 % (0-5) 11/01/17 06:04 Basophils 0 % (0-3) 11/01/17 06:04 PT 11.0 SECONDS (9.5-11.5) 10/31/17 21:40 INR 1.06 (0.5-1.4) 10/31/17 21:40 Sodium 137 mEq/L (136-145) 11/04/17 06:30 Potassium 3.3 mEq/L (3.5-5.1) L 11/04/17 06:30 Chloride 103 mEq/L (98-107) 11/04/17 06:30 Carbon Dioxide 25.8 mEq/L (21.0-31.0) 11/04/17 06:30 Anion Gap 11.5 (7.0-16.0) 11/04/17 06:30 BUN 24 mg/dL (7-25) 11/04/17 06:30 Creatinine 4.4 mg/dL (0.7-1.3) H* 11/04/17 06:30 Est GFR ( Amer) TNP 11/04/17 06:30 Est GFR (Non-Af Amer) TNP 11/04/17 06:30 BUN/Creatinine Ratio 5.5 11/04/17 06:30 Glucose 87 mg/dL (70-105) 11/04/17 06:30 Whole Bld Lactic Acid 1.36 mmol/L (0.60-1.99) 11/01/17 17:50 Calcium 9.4 mg/dL (8.6-10.3) 11/04/17 06:30 Total Bilirubin 0.6 mg/dL (0.3-1.0) 10/31/17 21:40 AST 38 U/L (13-39) 10/31/17 21:40 ALT 31 U/L (7-52) 10/31/17 21:40 Alkaline Phosphatase 109 U/L (34-104) H 10/31/17 21:40 Troponin I 0.04 ng/mL (0.01-0.05) 10/31/17 21:40 B-Natriuretic Peptide 959.0 pg/mL (5.0-100.0) H 11/03/17 04:05 Total Protein 7.1 gm/dL (6.0-8.3) 10/31/17 21:40 Albumin 3.4 gm/dL (4.2-5.5) L 10/31/17 21:40 Globulin 3.7 gm/dL 10/31/17 21:40 Albumin/Globulin Ratio 0.9 (1.0-1.8) L 10/31/17 21:40 Triglycerides 78 mg/dL (<150) 11/01/17 06:04 Cholesterol 89 mg/dL (<200) 11/01/17 06:04 LDL Cholesterol Direct 39 mg/dL (75-193) L 11/01/17 06:04 HDL Cholesterol 33 mg/dL (23-92) 11/01/17 06:04 TSH 0.55 uIU/ml (0.34-5.60) 11/01/17 06:04 Random Vancomycin 28.1 ug/mL (5.0-40.0) 11/04/17 06:30 - Physical Exam Vitals and I&O: Vital Signs Temp 98.3 F 11/04/17 12:00 Pulse 57 11/04/17 13:00 Resp 13 11/04/17 13:00 BP 117/63 11/04/17 13:00 Pulse Ox 99 11/04/17 13:00 Intake & Output 11/03/17 11/04/17 11/04/17 18:59 06:59 18:59 Intake Total 965.011 180 Balance 965.011 180 Weight (lbs) 70.307 kg 71.804 kg Intake: Intake, IV Amount 265.011 100 Norepinephrine 4 mg In 215.011 Dextrose 5% 250 ml @ Per Protocol IV TITR PRN Rx#: [id number] Piperacillin Sodium/ 50 100 Tazobact 2.25 gm In Sodium Chloride 0.9% 50 ml @ 100 mls/hr IV Q8HR [facility] Rx#:[id number] Oral 700 80 Other: # Voids 2 1 # Bowel Movements 2 1 Stool Characteristics Formed Soft Soft Hard Brown Formed Brown Green Weight Source Bedscale Bedscale Active Medications: Current Medications Acetaminophen (Tylenol) 650 mg PO Q4H PRN PRN Reason: MILD PAIN 1-3/ FEVER ABOVE 101 Stop: 12/31/17 00:37 Last Admin: 11/03/17 04:49 Dose: 650 mg Aspirin (Aspirin Chewable) 81 mg PO DAILY [facility] Stop: 12/31/17 08:59 Last Admin: 11/04/17 08:31 Dose: 81 mg Atorvastatin Calcium (Lipitor) 10 mg PO HS [facility]; Protocol Stop: 12/31/17 20:59 Last Admin: 11/03/17 20:27 Dose: 10 mg Citalopram Hydrobromide (Celexa) 20 mg PO DAILY [facility]; Protocol Stop: 12/31/17 08:59 Last Admin: 11/04/17 09:00 Dose: 20 mg Donepezil HCl (Aricept) 5 mg PO DAILY [facility] Stop: 12/31/17 08:59 Last Admin: 11/04/17 08:31 Dose: 5 mg Ferrous Sulfate (Iron) 325 mg PO BID [facility] Stop: 12/31/17 08:59 Last Admin: 11/04/17 08:30 Dose: 325 mg Finasteride (Proscar) 5 mg PO DAILY [facility]; Protocol Stop: 12/31/17 08:59 Last Admin: 11/04/17 08:30 Dose: 5 mg Folic Acid (Folate) 1 mg PO DAILY [facility] Stop: 12/31/17 08:59 Last Admin: 11/04/17 08:30 Dose: 1 mg Heparin Sodium (Porcine) (Heparin) 5,000 units HD PRN PRN PRN Reason: DIALYSIS PORTS Stop: 12/31/17 08:51 Piperacillin Sod/Tazobactam (Sod 2.25 gm/ Sodium Chloride) 50 mls @ 100 mls/hr IV Q8HR [facility] Stop: 12/31/17 04:59 Last Admin: 11/04/17 12:42 Dose: 100 mls/hr Norepinephrine Bitartrate 4 mg (/ Dextrose) 254 mls @ 0 mls/hr IV TITR PRN; Protocol PRN Reason: BP MAINTENANCE (PER PROTOCOL) Stop: 12/31/17 16:01 Last Titration: 11/03/17 16:31 Dose: 0 mcg/min, 0 mls/hr Lactobacillus Rhamnosus (Culturelle 15b) 1 each PO DAILY [facility] Stop: 01/01/18 13:59 Last Admin: 11/04/17 08:30 Dose: 1 each Levetiracetam (Keppra) 500 mg PO BID [facility] Stop: 12/31/17 08:59 Last Admin: 11/04/17 08:30 Dose: 500 mg Lorazepam (Ativan) 1 mg IVP Q6HR PRN; Protocol PRN Reason: Seizure Stop: 12/31/17 08:51 Last Admin: 11/03/17 12:04 Dose: 1 mg Mirtazapine (Remeron) 15 mg PO HS [facility]; Protocol Stop: 12/31/17 20:59 Last Admin: 11/03/17 22:02 Dose: Not Given Miscellaneous (Vancomycin Iv Per Pharmacy) 1 ea PRN PRN PRN Reason: PROTOCOL Stop: 12/31/17 01:03 Miscellaneous (Probiotic Screen) 1 ea PRN PRN PRN Reason: PROTOCOL Stop: 01/01/18 12:28 Mupirocin (Bactroban Oint) 1 appl NS BID [facility] Stop: 11/07/17 09:01 Last Admin: 11/04/17 08:31 Dose: 1 appl Olanzapine (Zyprexa) 2.5 mg PO HS [facility]; Protocol Stop: 12/31/17 20:59 Last Admin: 11/03/17 22:02 Dose: Not Given Pantoprazole Sodium (Protonix) 40 mg PO DAILY [facility] Stop: 12/31/17 08:59 Last Admin: 11/04/17 08:31 Dose: 40 mg Polyethylene Glycol (Miralax) 17 gm PO DAILY [facility] Stop: 12/31/17 12:59 Last Admin: 11/04/17 08:30 Dose: 17 gm Tamsulosin HCl (Flomax) 0.4 mg PO BID [facility] Stop: 12/31/17 08:59 Last Admin: 11/04/17 08:31 Dose: 0.4 mg General: Alert, No acute distress HEENT: Atraumatic, PERRLA, Mucous membr. moist/pink Neck: Supple, +2 carotid pulse wo bruit Cardiovascular: Regular rate, Normal S1, Normal S2 Lungs: Normal air movement Abdomen: Bowel sounds, Soft Extremities: no Edema Neurological: Sensation intact Skin: no Rash Psych/Mental Status: Mood NL - Procedures Procedures: Procedures Procedure Code Date INSERTION OF INFUSION DEV INTO SUP VENA CAVA, PERC APPROACH [id number] 01/16/17 PERFORMANCE OF URINARY FILTRATION, <6 HRS/DAY [id number] 09/01/17 ULTRASONOGRAPHY OF SUPERIOR VENA CAVA, GUIDANCE [id number] 01/16/17 Assessment/Plan - Problem List Patient Problems: All Active Problems HTN (hypertension) (Acute) I10 Hx of diabetes mellitus (Acute) Z86.39 Parkinson disease (Acute) G20 Septicemia (Acute) A41.9 infected cath (Acute) - Assessment Assessment: ESRD on HD GPC septicemia 2/2 line infxn Shock: septic Constipation Ess Htn w/ CKD GERD Dyslipidemia MRSA nares - Plan Plan: Lab - Result Diagrams 11/02/17 04:10 11/02/17 04:10 Current Medications Acetaminophen (Tylenol) 650 mg PO Q4H PRN PRN Reason: MILD PAIN 1-3/ FEVER ABOVE 101 Stop: 12/31/17 00:37 Last Admin: 11/01/17 19:36 Dose: 650 mg Aspirin (Aspirin Chewable) 81 mg PO DAILY [facility] Stop: 12/31/17 08:59 Last Admin: 11/02/17 09:42 Dose: 81 mg Atorvastatin Calcium (Lipitor) 10 mg PO HS [facility]; Protocol Stop: 12/31/17 20:59 Last Admin: 11/01/17 20:58 Dose: 10 mg Citalopram Hydrobromide (Celexa) 20 mg PO DAILY [facility]; Protocol Stop: 12/31/17 08:59 Donepezil HCl (Aricept) 5 mg PO DAILY [facility] Stop: 12/31/17 08:59 Last Admin: 11/02/17 09:41 Dose: 5 mg Ferrous Sulfate (Iron) 325 mg PO BID [facility] Stop: 12/31/17 08:59 Last Admin: 11/02/17 09:43 Dose: 325 mg Finasteride (Proscar) 5 mg PO DAILY [facility]; Protocol Stop: 12/31/17 08:59 Last Admin: 11/02/17 09:47 Dose: 5 mg Folic Acid (Folate) 1 mg PO DAILY [facility] Stop: 12/31/17 08:59 Last Admin: 11/02/17 09:43 Dose: 1 mg Heparin Sodium (Porcine) (Heparin) 5,000 units HD PRN PRN PRN Reason: DIALYSIS PORTS Stop: 12/31/17 08:51 Piperacillin Sod/Tazobactam (Sod 2.25 gm/ Sodium Chloride) 50 mls @ 100 mls/hr IV Q8HR [facility] Stop: 12/31/17 04:59 Last Admin: 11/02/17 12:56 Dose: 100 mls/hr Norepinephrine Bitartrate 4 mg (/ Dextrose) 254 mls @ 0 mls/hr IV TITR PRN; Protocol PRN Reason: BP MAINTENANCE (PER PROTOCOL) Stop: 12/31/17 16:01 Last Titration: 11/02/17 06:18 Dose: 4 mcg/min, 15.24 mls/hr Lactobacillus Rhamnosus (Culturelle 15b) 1 each PO DAILY [facility] Stop: 01/01/18 13:59 Levetiracetam (Keppra) 500 mg PO BID [facility] Stop: 12/31/17 08:59 Last Admin: 11/02/17 09:41 Dose: 500 mg Lorazepam (Ativan) 1 mg IVP Q6HR [facility]; Protocol PRN Reason: Seizure Stop: 12/31/17 08:51 Last Admin: 11/01/17 18:24 Dose: 1 mg Mirtazapine (Remeron) 15 mg PO HS [facility]; Protocol Stop: 12/31/17 20:59 Miscellaneous (Vancomycin Iv Per Pharmacy) 1 ea PRN PRN PRN Reason: PROTOCOL Stop: 12/31/17 01:03 Miscellaneous (Probiotic Screen) 1 ea PRN PRN PRN Reason: PROTOCOL Stop: 01/01/18 12:28 Mupirocin (Bactroban Oint) 1 appl NS BID [facility] Stop: 11/07/17 09:01 Olanzapine (Zyprexa) 2.5 mg PO HS [facility]; Protocol Stop: 12/31/17 20:59 Pantoprazole Sodium (Protonix) 40 mg PO DAILY [facility] Stop: 12/31/17 08:59 Last Admin: 11/02/17 09:41 Dose: 40 mg Polyethylene Glycol (Miralax) 17 gm PO DAILY [facility] Stop: 12/31/17 12:59 Last Admin: 11/02/17 09:41 Dose: 17 gm Tamsulosin HCl (Flomax) 0.4 mg PO BID [facility] Stop: 12/31/17 08:59 Last Admin: 11/02/17 09:41 Dose: 0.4 mg Lab - Result Diagrams 11/04/17 06:30 11/04/17 06:30 BC grew GPC schedule for HD in am after placement of Edmundo on Zosyn off Levo replace K Nutritional Asmnt/Malnutr-PDOC - Dietary Evaluation Malnutrition Findings (Please click <Entered> for more info): Nutritional Asmnt/Malnutrition Start: 11/02/17 16: 00 Text: Status: Complete Freq: Protocol: Document 11/02/17 16:02 CARMEN (Rec: 11/02/17 16:14 LCHENG [id number]) Nutritional Asmnt/Malnutrition Patient General Information Nutritional Screening High Risk Diagnosis sepsis, PNA Pertinent Medical Hx/Surgical Hx HTN, Dm, CVA, ESRD, dementia Subjective Information Pt seen resting in bed at time of visit. Pt is now on NPO for possible surgery. Per nurse note, pt had dialysis today. Pt is on Levophed noted . Current Diet Order/ Nutrition Support NPO Pertinent Medications lipitor, iron, folate, culturelle, remeron, levophed, protonix, piperacillin, miralax Pertinent Labs 11/02 BUN 34, Cr 5.0, glucose 112 11/01 Na 135, Cr 3.7, glucose 101 Nutritional Hx/Data Height 1.68 m Height (Calculated Centimeters) 167.6 Current Weight (lbs) 67.132 kg Weight (Calculated Kilograms) 67.1 Weight (Calculated Grams) 04883.7 [place] Body Weight 142 Body Mass Index (BMI) 23.8 Weight Status Approriate GI Symptoms GI Symptoms None Last BM no BM Difficult in: None Skin Integrity/Comment: opening above permacath site reddned to left arm Estimated Nutritional Goals BEE in Kcals: Using Current wt Calories/Kcals/Kg 27-32 Kcals Calculated 2573-7994 Protein: Using Current wt Protein g/k.2 Protein Calculated 80 Fluid: ml 1809-2144ml (1ml/kcal) Nutritional Problem 2. Problem Problem increased nutrition needs Etiology increased metabolic demand Signs/Symptoms: pt on dialysis and dx of sepsis, PNA 1. Problem Problem altered nutrition related labs Etiology hx of ESRD Signs/Symptoms: BUN 34, Cr 5.0, Intervention/Recommendation Comments 1. Monitor NPO status. Resume oral diet when medically appropriate. If PO intake <50% , will consider offer Nepro to increase nutrition itnake. 2. Monitor PO intake, wt, labs and skin integrity 3. F/U as hifh risk in 2-3 days, 11/04-11/05 Expected Outcomes/Goals Expected Outcomes/Goals 1. PO intake to meet at least 75% of nutritional needs. 2. Wt stability, skin to remain intact, labs to approach WNL.
--- NOTE | 2017-11-04 14:36 | General Progress Note ---
Subjective - Review of Systems Service Date: 11/04/17 Events since last encounter: will plan on placement of permcath and AV shunt or fistula on 11/06/[address]D. Soliman Objective - Results Result Diagrams: 11/04/17 06:30 11/04/17 06:30 Recent Labs: Laboratory Last Values WBC 4.3 Th/cmm (4.8-10.8) L 11/04/17 06:30 RBC 2.94 Mil/cmm (3.80-5.80) L 11/04/17 06:30 Hgb 9.4 gm/dL (12-16) L 11/04/17 06:30 Hct 27.3 % (41.0-60) L 11/04/17 06:30 MCV 93.0 fl (80-99) 11/04/17 06:30 MCH 31.9 pg (27.0-31.0) H 11/04/17 06:30 MCHC Differential 34.3 pg (28.0-36.0) 11/04/17 06:30 RDW 13.6 % (11.5-20.0) 11/04/17 06:30 Plt Count 151 Th/cmm (150-400) 11/04/17 06:30 MPV 7.6 fl 11/04/17 06:30 Add Manual Diff YES 11/01/17 06:04 Neutrophils % 67.9 % (40.0-80.0) 11/04/17 06:30 Band Neutrophils % 4 % (0-10) 11/01/17 06:04 Lymphocytes % 11.5 % (20.0-50.0) L 11/04/17 06:30 Monocytes % 12.4 % (2.0-10.0) H 11/04/17 06:30 Eosinophils % 7.0 % (0.0-5.0) H 11/04/17 06:30 Basophils % 1.2 % (0.0-2.0) 11/04/17 06:30 Neutrophils (Manual) 84 % (40-80) H 11/01/17 06:04 Lymphocytes 6 % (20-50) L 11/01/17 06:04 Monocytes 6 % (2-10) 11/01/17 06:04 Eosinophils 0 % (0-5) 11/01/17 06:04 Basophils 0 % (0-3) 11/01/17 06:04 PT 11.0 SECONDS (9.5-11.5) 10/31/17 21:40 INR 1.06 (0.5-1.4) 10/31/17 21:40 Sodium 137 mEq/L (136-145) 11/04/17 06:30 Potassium 3.3 mEq/L (3.5-5.1) L 11/04/17 06:30 Chloride 103 mEq/L (98-107) 11/04/17 06:30 Carbon Dioxide 25.8 mEq/L (21.0-31.0) 11/04/17 06:30 Anion Gap 11.5 (7.0-16.0) 11/04/17 06:30 BUN 24 mg/dL (7-25) 11/04/17 06:30 Creatinine 4.4 mg/dL (0.7-1.3) H* 11/04/17 06:30 Est GFR ( Amer) TNP 11/04/17 06:30 Est GFR (Non-Af Amer) TNP 11/04/17 06:30 BUN/Creatinine Ratio 5.5 11/04/17 06:30 Glucose 87 mg/dL (70-105) 11/04/17 06:30 Whole Bld Lactic Acid 1.36 mmol/L (0.60-1.99) 11/01/17 17:50 Calcium 9.4 mg/dL (8.6-10.3) 11/04/17 06:30 Total Bilirubin 0.6 mg/dL (0.3-1.0) 10/31/17 21:40 AST 38 U/L (13-39) 10/31/17 21:40 ALT 31 U/L (7-52) 10/31/17 21:40 Alkaline Phosphatase 109 U/L (34-104) H 10/31/17 21:40 Troponin I 0.04 ng/mL (0.01-0.05) 10/31/17 21:40 B-Natriuretic Peptide 959.0 pg/mL (5.0-100.0) H 11/03/17 04:05 Total Protein 7.1 gm/dL (6.0-8.3) 10/31/17 21:40 Albumin 3.4 gm/dL (4.2-5.5) L 10/31/17 21:40 Globulin 3.7 gm/dL 10/31/17 21:40 Albumin/Globulin Ratio 0.9 (1.0-1.8) L 10/31/17 21:40 Triglycerides 78 mg/dL (<150) 11/01/17 06:04 Cholesterol 89 mg/dL (<200) 11/01/17 06:04 LDL Cholesterol Direct 39 mg/dL (75-193) L 11/01/17 06:04 HDL Cholesterol 33 mg/dL (23-92) 11/01/17 06:04 TSH 0.55 uIU/ml (0.34-5.60) 11/01/17 06:04 Random Vancomycin 28.1 ug/mL (5.0-40.0) 11/04/17 06:30 - Physical Exam Vitals and I&O: Vital Signs Temp 98.3 F 11/04/17 12:00 Pulse 57 11/04/17 13:00 Resp 13 11/04/17 13:00 BP 117/63 11/04/17 13:00 Pulse Ox 99 11/04/17 13:00 Intake & Output 11/03/17 11/04/17 11/04/17 18:59 06:59 18:59 Intake Total 965.011 180 50 Balance 965.011 180 50 Weight (lbs) 70.307 kg 71.804 kg Intake: Intake, IV Amount 265.011 100 50 Norepinephrine 4 mg In 215.011 Dextrose 5% 250 ml @ Per Protocol IV TITR PRN Rx#: [id number] Piperacillin Sodium/ 50 100 50 Tazobact 2.25 gm In Sodium Chloride 0.9% 50 ml @ 100 mls/hr IV Q8HR [facility] Rx#:[id number] Oral 700 80 Other: # Voids 2 1 # Bowel Movements 2 1 Stool Characteristics Formed Soft Soft Hard Brown Formed Brown Green Weight Source Bedscale Bedscale Active Medications: Current Medications Acetaminophen (Tylenol) 650 mg PO Q4H PRN PRN Reason: MILD PAIN 1-3/ FEVER ABOVE 101 Stop: 12/31/17 00:37 Last Admin: 11/03/17 04:49 Dose: 650 mg Aspirin (Aspirin Chewable) 81 mg PO DAILY [facility] Stop: 12/31/17 08:59 Last Admin: 11/04/17 08:31 Dose: 81 mg Atorvastatin Calcium (Lipitor) 10 mg PO HS [facility]; Protocol Stop: 12/31/17 20:59 Last Admin: 11/03/17 20:27 Dose: 10 mg Citalopram Hydrobromide (Celexa) 20 mg PO DAILY [facility]; Protocol Stop: 12/31/17 08:59 Last Admin: 11/04/17 09:00 Dose: 20 mg Donepezil HCl (Aricept) 5 mg PO DAILY [facility] Stop: 12/31/17 08:59 Last Admin: 11/04/17 08:31 Dose: 5 mg Ferrous Sulfate (Iron) 325 mg PO BID [facility] Stop: 12/31/17 08:59 Last Admin: 11/04/17 08:30 Dose: 325 mg Finasteride (Proscar) 5 mg PO DAILY [facility]; Protocol Stop: 12/31/17 08:59 Last Admin: 11/04/17 08:30 Dose: 5 mg Folic Acid (Folate) 1 mg PO DAILY [facility] Stop: 12/31/17 08:59 Last Admin: 11/04/17 08:30 Dose: 1 mg Heparin Sodium (Porcine) (Heparin) 5,000 units HD PRN PRN PRN Reason: DIALYSIS PORTS Stop: 12/31/17 08:51 Piperacillin Sod/Tazobactam (Sod 2.25 gm/ Sodium Chloride) 50 mls @ 100 mls/hr IV Q8HR [facility] Stop: 12/31/17 04:59 Last Infusion: 11/04/17 13:15 Dose: Infused Norepinephrine Bitartrate 4 mg (/ Dextrose) 254 mls @ 0 mls/hr IV TITR PRN; Protocol PRN Reason: BP MAINTENANCE (PER PROTOCOL) Stop: 12/31/17 16:01 Last Titration: 11/03/17 16:31 Dose: 0 mcg/min, 0 mls/hr Lactobacillus Rhamnosus (Culturelle 15b) 1 each PO DAILY [facility] Stop: 01/01/18 13:59 Last Admin: 11/04/17 08:30 Dose: 1 each Levetiracetam (Keppra) 500 mg PO BID [facility] Stop: 12/31/17 08:59 Last Admin: 11/04/17 08:30 Dose: 500 mg Lorazepam (Ativan) 1 mg IVP Q6HR PRN; Protocol PRN Reason: Seizure Stop: 12/31/17 08:51 Last Admin: 11/03/17 12:04 Dose: 1 mg Mirtazapine (Remeron) 15 mg PO HS [facility]; Protocol Stop: 12/31/17 20:59 Last Admin: 11/03/17 22:02 Dose: Not Given Miscellaneous (Vancomycin Iv Per Pharmacy) 1 ea PRN PRN PRN Reason: PROTOCOL Stop: 12/31/17 01:03 Miscellaneous (Probiotic Screen) 1 [facility] PRN PRN PRN Reason: PROTOCOL Stop: 01/01/18 12:28 Mupirocin (Bactroban Oint) 1 appl NS BID [facility] Stop: 11/07/17 09:01 Last Admin: 11/04/17 08:31 Dose: 1 appl Olanzapine (Zyprexa) 2.5 mg PO HS [facility]; Protocol Stop: 12/31/17 20:59 Last Admin: 11/03/17 22:02 Dose: Not Given Pantoprazole Sodium (Protonix) 40 mg PO DAILY [facility] Stop: 12/31/17 08:59 Last Admin: 11/04/17 08:31 Dose: 40 mg Polyethylene Glycol (Miralax) 17 gm PO DAILY [facility] Stop: 12/31/17 12:59 Last Admin: 11/04/17 08:30 Dose: 17 gm Tamsulosin HCl (Flomax) 0.4 mg PO BID [facility] Stop: 12/31/17 08:59 Last Admin: 11/04/17 08:31 Dose: 0.4 mg General: Alert, No acute distress HEENT: Atraumatic, PERRLA, Mucous membr. moist/pink Neck: Supple, +2 carotid pulse wo bruit Cardiovascular: Regular rate, Normal S1, Normal S2 Lungs: Normal air movement Abdomen: Bowel sounds, Soft Extremities: no Edema Neurological: Sensation intact Skin: no Rash Psych/Mental Status: Mood NL - Procedures Procedures: Procedures Procedure Code Date INSERTION OF INFUSION DEV INTO SUP VENA CAVA, PERC APPROACH 53UV39Y 01/16/17 PERFORMANCE OF URINARY FILTRATION, <6 HRS/DAY [id number] 09/01/17 ULTRASONOGRAPHY OF SUPERIOR VENA CAVA, GUIDANCE [id number] 01/16/17 Assessment/Plan - Problem List Patient Problems: All Active Problems HTN (hypertension) (Acute) I10 Hx of diabetes mellitus (Acute) Z86.39 Parkinson disease (Acute) G20 Septicemia (Acute) A41.9 infected cath (Acute) Nutritional Asmnt/Malnutr-PDOC - Dietary Evaluation Malnutrition Findings (Please click <Entered> for more info): Nutritional Asmnt/Malnutrition Start: 11/02/17 16: 00 Text: Status: Complete Freq: Protocol: Document 11/02/17 16:02 LCDALLING (Rec: 11/02/17 16:14 LCDALLING [id number]) Nutritional Asmnt/Malnutrition Patient General Information Nutritional Screening High Risk Diagnosis sepsis, PNA Pertinent Medical Hx/Surgical Hx HTN, Dm, CVA, ESRD, dementia Subjective Information Pt seen resting in bed at time of visit. Pt is now on NPO for possible surgery. Per nurse note, pt had dialysis today. Pt is on Levophed noted . Current Diet Order/ Nutrition Support NPO Pertinent Medications lipitor, iron, folate, culturelle, remeron, levophed, protonix, piperacillin, miralax Pertinent Labs 11/02 BUN 34, Cr 5.0, glucose 112 11/01 Na 135, Cr 3.7, glucose 101 Nutritional Hx/Data Height 1.68 m Height (Calculated Centimeters) 167.6 Current Weight (lbs) 67.132 kg Weight (Calculated Kilograms) 67.1 Weight (Calculated Grams) 29116.7 [place] Body Weight 142 Body Mass Index (BMI) 23.8 Weight Status Approriate GI Symptoms GI Symptoms None Last BM no BM Difficult in: None Skin Integrity/Comment: opening above permacath site reddned to left arm Estimated Nutritional Goals BEE in Kcals: Using Current wt Calories/Kcals/Kg 27-32 Kcals Calculated 1468-7843 Protein: Using Current wt Protein g/k.2 Protein Calculated 80 Fluid: ml 1809-2144ml (1ml/kcal) Nutritional Problem 2. Problem Problem increased nutrition needs Etiology increased metabolic demand Signs/Symptoms: pt on dialysis and dx of sepsis, PNA 1. Problem Problem altered nutrition related labs Etiology hx of ESRD Signs/Symptoms: BUN 34, Cr 5.0, Intervention/Recommendation Comments 1. Monitor NPO status. Resume oral diet when medically appropriate. If PO intake <50% , will consider offer Nepro to increase nutrition itnake. 2. Monitor PO intake, wt, labs and skin integrity 3. F/U as hifh risk in 2-3 days, 9/12-11/05 Expected Outcomes/Goals Expected Outcomes/Goals 1. PO intake to meet at least 75% of nutritional needs. 2. Wt stability, skin to remain intact, labs to approach WNL.
--- NOTE | 2017-11-04 15:55 | Cardiology ---
11/03/2017 PATIENT OF: Dr. Wiggins. M-MODE ECHOCARDIOGRAM: Mitral valve, anterior leaflet of mitral valve shows normal excursion, EF velocity. Posterior leaflet of the mitral valve shows normal excursion. Left ventricular posterior wall shows increased thickness, normal excursion. Interventricular septum shows increased thickness, normal excursion, hypertrophy of the left ventricle, ejection fraction 61%. Left atrium normal. Aortic root shows normal dimension, normal excursion of aortic leaflets. CONCLUSION: Hypertrophy of the left ventricle, ejection fraction 61%. 2D ECHO: Long axis view showed normal sized left ventricle with hypertrophy of the left ventricle. Left atrium normal. Aortic root shows normal dimension, normal excursion of aortic leaflets. Short axis view of mitral valve normal. Short axis view of aortic valve normal. Apical four chamber view showed normal sized left ventricle with hypertrophy of the left ventricle. Left atrium normal. Right ventricular cavity, right atrium normal, no pericardial effusion. CONCLUSION: Hypertrophy of the left ventricle, ejection fraction 61%. Doppler study shows mild mitral regurgitation, mild tricuspid regurgitation, right ventricular systolic pressure 23 mmHg. CONCLUSION: Hypertrophy of the left ventricle, mild mitral regurg, mild tricuspid regurgitation. JOB# [id number]
[2017-11-04] MEDS: Atorvastatin Calcium 10 MG TAB PO SCH (21:00)
--- NOTE | 2017-11-05 02:20 | Infectious Disease Prog Note ---
Infectious Disease Subjective - Review of Systems Service Date: 11/05/17 Subjective: There is no new change. 3/3 Blood cultures grew MRSA. Infectious Disease Objective - Results Result Diagrams: 11/04/17 06:30 11/04/17 06:30 Recent Labs: Laboratory Last Values WBC 4.3 Th/cmm (4.8-10.8) L 11/04/17 06:30 RBC 2.94 Mil/cmm (3.80-5.80) L 11/04/17 06:30 Hgb 9.4 gm/dL (12-16) L 11/04/17 06:30 Hct 27.3 % (41.0-60) L 11/04/17 06:30 MCV 93.0 fl (80-99) 11/04/17 06:30 MCH 31.9 pg (27.0-31.0) H 11/04/17 06:30 MCHC Differential 34.3 pg (28.0-36.0) 11/04/17 06:30 RDW 13.6 % (11.5-20.0) 11/04/17 06:30 Plt Count 151 Th/cmm (150-400) 11/04/17 06:30 MPV 7.6 fl 11/04/17 06:30 Add Manual Diff YES 11/01/17 06:04 Neutrophils % 67.9 % (40.0-80.0) 11/04/17 06:30 Band Neutrophils % 4 % (0-10) 11/01/17 06:04 Lymphocytes % 11.5 % (20.0-50.0) L 11/04/17 06:30 Monocytes % 12.4 % (2.0-10.0) H 11/04/17 06:30 Eosinophils % 7.0 % (0.0-5.0) H 11/04/17 06:30 Basophils % 1.2 % (0.0-2.0) 11/04/17 06:30 Neutrophils (Manual) 84 % (40-80) H 11/01/17 06:04 Lymphocytes 6 % (20-50) L 11/01/17 06:04 Monocytes 6 % (2-10) 11/01/17 06:04 Eosinophils 0 % (0-5) 11/01/17 06:04 Basophils 0 % (0-3) 11/01/17 06:04 PT 11.0 SECONDS (9.5-11.5) 10/31/17 21:40 INR 1.06 (0.5-1.4) 10/31/17 21:40 Sodium 137 mEq/L (136-145) 11/04/17 06:30 Potassium 3.3 mEq/L (3.5-5.1) L 11/04/17 06:30 Chloride 103 mEq/L (98-107) 11/04/17 06:30 Carbon Dioxide 25.8 mEq/L (21.0-31.0) 11/04/17 06:30 Anion Gap 11.5 (7.0-16.0) 11/04/17 06:30 BUN 24 mg/dL (7-25) 11/04/17 06:30 Creatinine 4.4 mg/dL (0.7-1.3) H* 11/04/17 06:30 Est GFR ( Amer) TNP 11/04/17 06:30 Est GFR (Non-Af Amer) TNP 11/04/17 06:30 BUN/Creatinine Ratio 5.5 11/04/17 06:30 Glucose 87 mg/dL (70-105) 11/04/17 06:30 Whole Bld Lactic Acid 1.36 mmol/L (0.60-1.99) 11/01/17 17:50 Calcium 9.4 mg/dL (8.6-10.3) 11/04/17 06:30 Total Bilirubin 0.6 mg/dL (0.3-1.0) 10/31/17 21:40 AST 38 U/L (13-39) 10/31/17 21:40 ALT 31 U/L (7-52) 10/31/17 21:40 Alkaline Phosphatase 109 U/L (34-104) H 10/31/17 21:40 Troponin I 0.04 ng/mL (0.01-0.05) 10/31/17 21:40 B-Natriuretic Peptide 959.0 pg/mL (5.0-100.0) H 11/03/17 04:05 Total Protein 7.1 gm/dL (6.0-8.3) 10/31/17 21:40 Albumin 3.4 gm/dL (4.2-5.5) L 10/31/17 21:40 Globulin 3.7 gm/dL 10/31/17 21:40 Albumin/Globulin Ratio 0.9 (1.0-1.8) L 10/31/17 21:40 Triglycerides 78 mg/dL (<150) 11/01/17 06:04 Cholesterol 89 mg/dL (<200) 11/01/17 06:04 LDL Cholesterol Direct 39 mg/dL (75-193) L 11/01/17 06:04 HDL Cholesterol 33 mg/dL (23-92) 11/01/17 06:04 TSH 0.55 uIU/ml (0.34-5.60) 11/01/17 06:04 Random Vancomycin 28.1 ug/mL (5.0-40.0) 11/04/17 06:30 - Physical Exam Vitals and I&O: Vital Signs Temp 97.4 F 11/04/17 23:00 Pulse 61 11/05/17 02:00 Resp 14 11/05/17 02:00 BP 112/72 11/05/17 02:00 Pulse Ox 100 11/05/17 02:00 Intake & Output 11/04/17 11/04/17 11/05/17 06:59 18:59 06:59 Intake Total 180 650 50 Balance 180 650 50 Weight (lbs) 71.804 kg 69.264 kg Intake: Intake, IV Amount 100 50 50 Piperacillin Sodium/ 100 50 50 Tazobact 2.25 gm In Sodium Chloride 0.9% 50 ml @ 100 mls/hr IV Q8HR [facility] Rx#:[id number] Oral 80 600 Other: # Voids 1 3 # Bowel Movements 1 2 Stool Characteristics Soft Soft Brown Formed Green Weight Source Bedscale Bedscale Active Medications: Current Medications Acetaminophen (Tylenol) 650 mg PO Q4H PRN PRN Reason: MILD PAIN 1-3/ FEVER ABOVE 101 Stop: 12/31/17 00:37 Last Admin: 11/03/17 04:49 Dose: 650 mg Aspirin (Aspirin Chewable) 81 mg PO DAILY [facility] Stop: 12/31/17 08:59 Last Admin: 11/04/17 08:31 Dose: 81 mg Atorvastatin Calcium (Lipitor) 10 mg PO HS [facility]; Protocol Stop: 12/31/17 20:59 Last Admin: 11/04/17 21:00 Dose: 10 mg Citalopram Hydrobromide (Celexa) 20 mg PO DAILY [facility]; Protocol Stop: 12/31/17 08:59 Last Admin: 11/04/17 09:00 Dose: 20 mg Donepezil HCl (Aricept) 5 mg PO DAILY [facility] Stop: 12/31/17 08:59 Last Admin: 11/04/17 08:31 Dose: 5 mg Ferrous Sulfate (Iron) 325 mg PO BID [facility] Stop: 12/31/17 08:59 Last Admin: 11/04/17 16:49 Dose: 325 mg Finasteride (Proscar) 5 mg PO DAILY [facility]; Protocol Stop: 12/31/17 08:59 Last Admin: 11/04/17 08:30 Dose: 5 mg Folic Acid (Folate) 1 mg PO DAILY [facility] Stop: 12/31/17 08:59 Last Admin: 11/04/17 08:30 Dose: 1 mg Heparin Sodium (Porcine) (Heparin) 5,000 units HD PRN PRN PRN Reason: DIALYSIS PORTS Stop: 12/31/17 08:51 Piperacillin Sod/Tazobactam (Sod 2.25 gm/ Sodium Chloride) 50 mls @ 100 mls/hr IV Q8HR [facility] Stop: 12/31/17 04:59 Last Infusion: 11/04/17 21:30 Dose: Infused Norepinephrine Bitartrate 4 mg (/ Dextrose) 254 mls @ 0 mls/hr IV TITR PRN; Protocol PRN Reason: BP MAINTENANCE (PER PROTOCOL) Stop: 12/31/17 16:01 Last Titration: 11/03/17 16:31 Dose: 0 mcg/min, 0 mls/hr Lactobacillus Rhamnosus (Culturelle 15b) 1 each PO DAILY [facility] Stop: 01/01/18 13:59 Last Admin: 11/04/17 08:30 Dose: 1 each Levetiracetam (Keppra) 500 mg PO BID [facility] Stop: 12/31/17 08:59 Last Admin: 11/04/17 16:48 Dose: 500 mg Lorazepam (Ativan) 1 mg IVP Q6HR PRN; Protocol PRN Reason: Seizure Stop: 12/31/17 08:51 Last Admin: 11/03/17 12:04 Dose: 1 mg Mirtazapine (Remeron) 15 mg PO HS [facility]; Protocol Stop: 12/31/17 20:59 Last Admin: 11/04/17 20:57 Dose: Not Given Miscellaneous (Vancomycin Iv Per Pharmacy) 1 ea PRN PRN PRN Reason: PROTOCOL Stop: 12/31/17 01:03 Miscellaneous (Probiotic Screen) 1 ea PRN PRN PRN Reason: PROTOCOL Stop: 01/01/18 12:28 Mupirocin (Bactroban Oint) 1 appl NS BID [facility] Stop: 11/07/17 09:01 Last Admin: 11/04/17 16:49 Dose: 1 appl Olanzapine (Zyprexa) 2.5 mg PO HS [facility]; Protocol Stop: 12/31/17 20:59 Last Admin: 11/04/17 20:57 Dose: Not Given Pantoprazole Sodium (Protonix) 40 mg PO DAILY [facility] Stop: 12/31/17 08:59 Last Admin: 11/04/17 08:31 Dose: 40 mg Polyethylene Glycol (Miralax) 17 gm PO DAILY [facility] Stop: 12/31/17 12:59 Last Admin: 11/04/17 08:30 Dose: 17 gm Tamsulosin HCl (Flomax) 0.4 mg PO BID [facility] Stop: 12/31/17 08:59 Last Admin: 11/04/17 16:49 Dose: 0.4 mg General: no acute distress, well developed, well nourished HEENT: atraumatic, normocephalic, PERRLA Neck: supple, no thyromegaly Cardiovascular: S1S2, regular Lungs: clear to percussion, rhonchi Abdomen: soft, no tender, no distended, no mass, no hepatomegaly Extremities: no cyanosis, no clubbing, no edema Neurological: awake, alert, oriented Skin: intact - Procedures Procedures: Procedures Procedure Code Date INSERTION OF INFUSION DEV INTO SUP VENA CAVA, PERC APPROACH [id number] 01/16/17 PERFORMANCE OF URINARY FILTRATION, <6 HRS/DAY [id number] 09/01/17 ULTRASONOGRAPHY OF SUPERIOR VENA CAVA, GUIDANCE [id number] 01/16/17 Infectious Disease Assmt/Plan - Problem List Patient Problems: All Active Problems HTN (hypertension) (Acute) I10 Hx of diabetes mellitus (Acute) Z86.39 Parkinson disease (Acute) G20 Septicemia (Acute) A41.9 infected cath (Acute) - Assessment Assessment: 1. Sepsis. Septic shock. Pneumonia versus line sepsis. Staph sepsis, 3/3 sets are positive 2. Pneumonia. 3. 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 4. Diabetes mellitus type 2. 5. Hypertension. - Plan Plan: Continue same management. Antibiotic-dang, vancomycin IV and Zosyn. No permanent access at this time, as patient is bacteremic. Nutritional Asmnt/Malnutr-PDOC - Dietary Evaluation Malnutrition Findings (Please click <Entered> for more info): Nutritional Asmnt/Malnutrition Start: 11/02/17 16: 00 Text: Status: Complete Freq: Protocol: Document 11/02/17 16:02 DALLIN (Rec: 11/02/17 16:14 [facility] [id number]) Nutritional Asmnt/Malnutrition Patient General Information Nutritional Screening High Risk Diagnosis sepsis, PNA Pertinent Medical Hx/Surgical Hx HTN, Dm, CVA, ESRD, dementia Subjective Information Pt seen resting in bed at time of visit. Pt is now on NPO for possible surgery. Per nurse note, pt had dialysis today. Pt is on Levophed noted . Current Diet Order/ Nutrition Support NPO Pertinent Medications lipitor, iron, folate, culturelle, remeron, levophed, protonix, piperacillin, miralax Pertinent Labs 11/02 BUN 34, Cr 5.0, glucose 112 9/9 Na 135, Cr 3.7, glucose 101 Nutritional Hx/Data Height 1.68 m Height (Calculated Centimeters) 167.6 Current Weight (lbs) 67.132 kg Weight (Calculated Kilograms) 67.1 Weight (Calculated Grams) 36329.7 [place] Body Weight 142 Body Mass Index (BMI) 23.8 Weight Status Approriate GI Symptoms GI Symptoms None Last BM no BM Difficult in: None Skin Integrity/Comment: opening above permacath site reddned to left arm Estimated Nutritional Goals BEE in Kcals: Using Current wt Calories/Kcals/Kg 27-32 Kcals Calculated 6812-3786 Protein: Using Current wt Protein g/k.2 Protein Calculated 80 Fluid: ml 1809-2144ml (1ml/kcal) Nutritional Problem 2. Problem Problem increased nutrition needs Etiology increased metabolic demand Signs/Symptoms: pt on dialysis and dx of sepsis, PNA 1. Problem Problem altered nutrition related labs Etiology hx of ESRD Signs/Symptoms: BUN 34, Cr 5.0, Intervention/Recommendation Comments 1. Monitor NPO status. Resume oral diet when medically appropriate. If PO intake <50% , will consider offer Nepro to increase nutrition itnake. 2. Monitor PO intake, wt, labs and skin integrity 3. F/U as hifh risk in 2-3 days, 11/04-11/05 Expected Outcomes/Goals Expected Outcomes/Goals 1. PO intake to meet at least 75% of nutritional needs. 2. Wt stability, skin to remain intact, labs to approach WNL.
[2017-11-05 05:37] LABS: ANION GAP 13.6 (7.0-16.0); BUN - UREA NITROGEN 28 mg/dL (7-25); CALCIUM SERUM 9.4 mg/dL (8.6-10.3); CARBON DIOXIDE 23.3 mEq/L (21.0-31.0); CHLORIDE 106 mEq/L (98-107); GLUCOSE 86 mg/dL (70-105); MAGNESIUM 1.9 mg/dL (1.9-2.7); POTASSIUM SERUM 3.9 mEq/L (3.5-5.1); SODIUM SERUM 139 mEq/L (136-145)
[2017-11-05 05:44] LABS: CREATININE - SERUM 5.5 mg/dL (0.7-1.3)
--- NOTE | 2017-11-05 08:39 | General Progress Note ---
Subjective - Review of Systems Service Date: 11/05/17 Events since last encounter: Edmundo cath inserted left subclavian vein MRSA septicemia Objective - Results Result Diagrams: 11/04/17 06:30 11/05/17 05:00 Recent Labs: Laboratory Last Values WBC 4.3 Th/cmm (4.8-10.8) L 11/04/17 06:30 RBC 2.94 Mil/cmm (3.80-5.80) L 11/04/17 06:30 Hgb 9.4 gm/dL (12-16) L 11/04/17 06:30 Hct 27.3 % (41.0-60) L 11/04/17 06:30 MCV 93.0 fl (80-99) 11/04/17 06:30 MCH 31.9 pg (27.0-31.0) H 11/04/17 06:30 MCHC Differential 34.3 pg (28.0-36.0) 11/04/17 06:30 RDW 13.6 % (11.5-20.0) 11/04/17 06:30 Plt Count 151 Th/cmm (150-400) 11/04/17 06:30 MPV 7.6 fl 11/04/17 06:30 Add Manual Diff YES 11/01/17 06:04 Neutrophils % 67.9 % (40.0-80.0) 11/04/17 06:30 Band Neutrophils % 4 % (0-10) 11/01/17 06:04 Lymphocytes % 11.5 % (20.0-50.0) L 11/04/17 06:30 Monocytes % 12.4 % (2.0-10.0) H 11/04/17 06:30 Eosinophils % 7.0 % (0.0-5.0) H 11/04/17 06:30 Basophils % 1.2 % (0.0-2.0) 11/04/17 06:30 Neutrophils (Manual) 84 % (40-80) H 11/01/17 06:04 Lymphocytes 6 % (20-50) L 11/01/17 06:04 Monocytes 6 % (2-10) 11/01/17 06:04 Eosinophils 0 % (0-5) 11/01/17 06:04 Basophils 0 % (0-3) 11/01/17 06:04 PT 11.0 SECONDS (9.5-11.5) 10/31/17 21:40 INR 1.06 (0.5-1.4) 10/31/17 21:40 Sodium 139 mEq/L (136-145) 11/05/17 05:00 Potassium 3.9 mEq/L (3.5-5.1) 11/05/17 05:00 Chloride 106 mEq/L (98-107) 11/05/17 05:00 Carbon Dioxide 23.3 mEq/L (21.0-31.0) 11/05/17 05:00 Anion Gap 13.6 (7.0-16.0) 11/05/17 05:00 BUN 28 mg/dL (7-25) H 11/05/17 05:00 Creatinine 5.5 mg/dL (0.7-1.3) H* 11/05/17 05:00 Est GFR ( Amer) TNP 11/05/17 05:00 Est GFR (Non-Af Amer) TNP 11/05/17 05:00 BUN/Creatinine Ratio 5.1 11/05/17 05:00 Glucose 86 mg/dL (70-105) 11/05/17 05:00 Whole Bld Lactic Acid 1.36 mmol/L (0.60-1.99) 11/01/17 17:50 Calcium 9.4 mg/dL (8.6-10.3) 11/05/17 05:00 Magnesium 1.9 mg/dL (1.9-2.7) 11/05/17 05:00 Total Bilirubin 0.6 mg/dL (0.3-1.0) 10/31/17 21:40 AST 38 U/L (13-39) 10/31/17 21:40 ALT 31 U/L (7-52) 10/31/17 21:40 Alkaline Phosphatase 109 U/L (34-104) H 10/31/17 21:40 Troponin I 0.04 ng/mL (0.01-0.05) 10/31/17 21:40 B-Natriuretic Peptide 959.0 pg/mL (5.0-100.0) H 11/03/17 04:05 Total Protein 7.1 gm/dL (6.0-8.3) 10/31/17 21:40 Albumin 3.4 gm/dL (4.2-5.5) L 10/31/17 21:40 Globulin 3.7 gm/dL 10/31/17 21:40 Albumin/Globulin Ratio 0.9 (1.0-1.8) L 10/31/17 21:40 Triglycerides 78 mg/dL (<150) 11/01/17 06:04 Cholesterol 89 mg/dL (<200) 11/01/17 06:04 LDL Cholesterol Direct 39 mg/dL (75-193) L 11/01/17 06:04 HDL Cholesterol 33 mg/dL (23-92) 11/01/17 06:04 TSH 0.55 uIU/ml (0.34-5.60) 11/01/17 06:04 Random Vancomycin 28.1 ug/mL (5.0-40.0) 11/04/17 06:30 - Physical Exam Vitals and I&O: Vital Signs Temp 97.6 F 11/05/17 07:00 Pulse 50 11/05/17 07:53 Resp 18 11/05/17 07:53 BP 111/67 11/05/17 07:00 Pulse Ox 100 11/05/17 07:53 Intake & Output 11/04/17 11/05/17 11/05/17 18:59 06:59 18:59 Intake Total 650 130 Balance 650 130 Weight (lbs) 69.264 kg 71.532 kg Intake: Intake, IV Amount 50 100 Piperacillin Sodium/ 50 100 Tazobact 2.25 gm In Sodium Chloride 0.9% 50 ml @ 100 mls/hr IV Q8HR [facility] Rx#:[id number] Oral 600 30 Other: # Voids 3 2 # Bowel Movements 2 Stool Characteristics Soft Formed Weight Source Bedscale Bedscale Active Medications: Current Medications Acetaminophen (Tylenol) 650 mg PO Q4H PRN PRN Reason: MILD PAIN 1-3/ FEVER ABOVE 101 Stop: 12/31/17 00:37 Last Admin: 11/03/17 04:49 Dose: 650 mg Aspirin (Aspirin Chewable) 81 mg PO DAILY [facility] Stop: 12/31/17 08:59 Last Admin: 11/04/17 08:31 Dose: 81 mg Atorvastatin Calcium (Lipitor) 10 mg PO HS [facility]; Protocol Stop: 12/31/17 20:59 Last Admin: 11/04/17 21:00 Dose: 10 mg Citalopram Hydrobromide (Celexa) 20 mg PO DAILY [facility]; Protocol Stop: 12/31/17 08:59 Last Admin: 11/04/17 09:00 Dose: 20 mg Donepezil HCl (Aricept) 5 mg PO DAILY [facility] Stop: 12/31/17 08:59 Last Admin: 11/04/17 08:31 Dose: 5 mg Ferrous Sulfate (Iron) 325 mg PO BID [facility] Stop: 12/31/17 08:59 Last Admin: 11/04/17 16:49 Dose: 325 mg Finasteride (Proscar) 5 mg PO DAILY [facility]; Protocol Stop: 12/31/17 08:59 Last Admin: 11/04/17 08:30 Dose: 5 mg Folic Acid (Folate) 1 mg PO DAILY [facility] Stop: 12/31/17 08:59 Last Admin: 11/04/17 08:30 Dose: 1 mg Heparin Sodium (Porcine) (Heparin) 5,000 units HD PRN PRN PRN Reason: DIALYSIS PORTS Stop: 12/31/17 08:51 Piperacillin Sod/Tazobactam (Sod 2.25 gm/ Sodium Chloride) 50 mls @ 100 mls/hr IV Q8HR [facility] Stop: 12/31/17 04:59 Last Infusion: 11/05/17 06:06 Dose: Infused Norepinephrine Bitartrate 4 mg (/ Dextrose) 254 mls @ 0 mls/hr IV TITR PRN; Protocol PRN Reason: BP MAINTENANCE (PER PROTOCOL) Stop: 12/31/17 16:01 Last Titration: 11/03/17 16:31 Dose: 0 mcg/min, 0 mls/hr Lactobacillus Rhamnosus (Culturelle 15b) 1 each PO DAILY [facility] Stop: 01/01/18 13:59 Last Admin: 11/04/17 08:30 Dose: 1 each Levetiracetam (Keppra) 500 mg PO BID [facility] Stop: 12/31/17 08:59 Last Admin: 11/04/17 16:48 Dose: 500 mg Lorazepam (Ativan) 1 mg IVP Q6HR PRN; Protocol PRN Reason: Seizure Stop: 12/31/17 08:51 Last Admin: 11/03/17 12:04 Dose: 1 mg Mirtazapine (Remeron) 15 mg PO HS [facility]; Protocol Stop: 12/31/17 20:59 Last Admin: 11/04/17 20:57 Dose: Not Given Miscellaneous (Vancomycin Iv Per Pharmacy) 1 ea PRN PRN PRN Reason: PROTOCOL Stop: 12/31/17 01:03 Miscellaneous (Probiotic Screen) 1 ea PRN PRN PRN Reason: PROTOCOL Stop: 01/01/18 12:28 Mupirocin (Bactroban Oint) 1 appl NS BID [facility] Stop: 11/07/17 09:01 Last Admin: 11/04/17 16:49 Dose: 1 appl Olanzapine (Zyprexa) 2.5 mg PO HS [facility]; Protocol Stop: 12/31/17 20:59 Last Admin: 11/04/17 20:57 Dose: Not Given Pantoprazole Sodium (Protonix) 40 mg PO DAILY [facility] Stop: 12/31/17 08:59 Last Admin: 11/04/17 08:31 Dose: 40 mg Polyethylene Glycol (Miralax) 17 gm PO DAILY [facility] Stop: 12/31/17 12:59 Last Admin: 11/04/17 08:30 Dose: 17 gm Tamsulosin HCl (Flomax) 0.4 mg PO BID [facility] Stop: 12/31/17 08:59 Last Admin: 11/04/17 16:49 Dose: 0.4 mg General: Alert, No acute distress HEENT: Atraumatic, PERRLA, Mucous membr. moist/pink Neck: Supple, +2 carotid pulse wo bruit Cardiovascular: Regular rate, Normal S1, Normal S2 Lungs: Normal air movement Abdomen: Bowel sounds, Soft Extremities: no Edema Neurological: Sensation intact Skin: no Rash Psych/Mental Status: Mood NL - Procedures Procedures: Procedures Procedure Code Date INSERTION OF INFUSION DEV INTO SUP VENA CAVA, PERC APPROACH 92AB42V 01/16/17 PERFORMANCE OF URINARY FILTRATION, <6 HRS/DAY [id number] 09/01/17 ULTRASONOGRAPHY OF SUPERIOR VENA CAVA, GUIDANCE [id number] 01/16/17 Assessment/Plan - Problem List Patient Problems: All Active Problems HTN (hypertension) (Acute) I10 Hx of diabetes mellitus (Acute) Z86.39 Parkinson disease (Acute) G20 Septicemia (Acute) A41.9 infected cath (Acute) Nutritional Asmnt/Malnutr-PDOC - Dietary Evaluation Malnutrition Findings (Please click <Entered> for more info): Nutritional Asmnt/Malnutrition Start: 11/02/17 16: 00 Text: Status: Complete Freq: Protocol: Document 11/02/17 16:02 GEORGECRYSTAL (Rec: 11/02/17 16:14 GEORGECRYSTAL [email or web address]) Nutritional Asmnt/Malnutrition Patient General Information Nutritional Screening High Risk Diagnosis sepsis, PNA Pertinent Medical Hx/Surgical Hx HTN, Dm, CVA, ESRD, dementia Subjective Information Pt seen resting in bed at time of visit. Pt is now on NPO for possible surgery. Per nurse note, pt had dialysis today. Pt is on Levophed noted . Current Diet Order/ Nutrition Support NPO Pertinent Medications lipitor, iron, folate, culturelle, remeron, levophed, protonix, piperacillin, miralax Pertinent Labs 11/02 BUN 34, Cr 5.0, glucose 112 11/01 Na 135, Cr 3.7, glucose 101 Nutritional Hx/Data Height 1.68 m Height (Calculated Centimeters) 167.6 Current Weight (lbs) 67.132 kg Weight (Calculated Kilograms) 67.1 Weight (Calculated Grams) 32340.7 [place] Body Weight 142 Body Mass Index (BMI) 23.8 Weight Status Approriate GI Symptoms GI Symptoms None Last BM no BM Difficult in: None Skin Integrity/Comment: opening above permacath site reddned to left arm Estimated Nutritional Goals BEE in Kcals: Using Current wt Calories/Kcals/Kg 27-32 Kcals Calculated 9234-3384 Protein: Using Current wt Protein g/k.2 Protein Calculated 80 Fluid: ml 1809-2144ml (1ml/kcal) Nutritional Problem 2. Problem Problem increased nutrition needs Etiology increased metabolic demand Signs/Symptoms: pt on dialysis and dx of sepsis, PNA 1. Problem Problem altered nutrition related labs Etiology hx of ESRD Signs/Symptoms: BUN 34, Cr 5.0, Intervention/Recommendation Comments 1. Monitor NPO status. Resume oral diet when medically appropriate. If PO intake <50% , will consider offer Nepro to increase nutrition itnake. 2. Monitor PO intake, wt, labs and skin integrity 3. F/U as hifh risk in 2-3 days, 11/04-11/05 Expected Outcomes/Goals Expected Outcomes/Goals 1. PO intake to meet at least 75% of nutritional needs. 2. Wt stability, skin to remain intact, labs to approach WNL.
[2017-11-05] MEDS: Ferrous Sulfate 325 MG TAB PO SCH ×2 (09:07→17:53)
[2017-11-05] MEDS: Lactobacillus Rhamnosus GG 15 Billion CFU CAP.SPRINK PO SCH (09:07)
[2017-11-05] MEDS: Pantoprazole 40 mg EC Tab PO SCH (09:07)
[2017-11-05] MEDS: Aspirin 81mg Chewable Tab PO SCH (09:07)
[2017-11-05] MEDS: POLYETHYLENE GLYCOL 3350 17 GM PACK PO SCH (09:21)
--- NOTE | 2017-11-05 10:09 | General Progress Note ---
Subjective - Review of Systems Events since last encounter: s/p Edmundo cath inserted left subclavian vein pateint with MRSA septicemia Subjective: as per order sheet will monitor Objective - Results Result Diagrams: 11/04/17 06:30 11/05/17 05:00 Recent Labs: Laboratory Last Values WBC 4.3 Th/cmm (4.8-10.8) L 11/04/17 06:30 RBC 2.94 Mil/cmm (3.80-5.80) L 11/04/17 06:30 Hgb 9.4 gm/dL (12-16) L 11/04/17 06:30 Hct 27.3 % (41.0-60) L 11/04/17 06:30 MCV 93.0 fl (80-99) 11/04/17 06:30 MCH 31.9 pg (27.0-31.0) H 11/04/17 06:30 MCHC Differential 34.3 pg (28.0-36.0) 11/04/17 06:30 RDW 13.6 % (11.5-20.0) 11/04/17 06:30 Plt Count 151 Th/cmm (150-400) 11/04/17 06:30 MPV 7.6 fl 11/04/17 06:30 Add Manual Diff YES 11/01/17 06:04 Neutrophils % 67.9 % (40.0-80.0) 11/04/17 06:30 Band Neutrophils % 4 % (0-10) 11/01/17 06:04 Lymphocytes % 11.5 % (20.0-50.0) L 11/04/17 06:30 Monocytes % 12.4 % (2.0-10.0) H 11/04/17 06:30 Eosinophils % 7.0 % (0.0-5.0) H 11/04/17 06:30 Basophils % 1.2 % (0.0-2.0) 11/04/17 06:30 Neutrophils (Manual) 84 % (40-80) H 11/01/17 06:04 Lymphocytes 6 % (20-50) L 11/01/17 06:04 Monocytes 6 % (2-10) 11/01/17 06:04 Eosinophils 0 % (0-5) 11/01/17 06:04 Basophils 0 % (0-3) 11/01/17 06:04 PT 11.0 SECONDS (9.5-11.5) 10/31/17 21:40 INR 1.06 (0.5-1.4) 10/31/17 21:40 Sodium 139 mEq/L (136-145) 11/05/17 05:00 Potassium 3.9 mEq/L (3.5-5.1) 11/05/17 05:00 Chloride 106 mEq/L (98-107) 11/05/17 05:00 Carbon Dioxide 23.3 mEq/L (21.0-31.0) 11/05/17 05:00 Anion Gap 13.6 (7.0-16.0) 11/05/17 05:00 BUN 28 mg/dL (7-25) H 11/05/17 05:00 Creatinine 5.5 mg/dL (0.7-1.3) H* 11/05/17 05:00 Est GFR ( Amer) TNP 11/05/17 05:00 Est GFR (Non-Af Amer) TNP 11/05/17 05:00 BUN/Creatinine Ratio 5.1 11/05/17 05:00 Glucose 86 mg/dL (70-105) 11/05/17 05:00 Whole Bld Lactic Acid 1.36 mmol/L (0.60-1.99) 11/01/17 17:50 Calcium 9.4 mg/dL (8.6-10.3) 11/05/17 05:00 Magnesium 1.9 mg/dL (1.9-2.7) 11/05/17 05:00 Total Bilirubin 0.6 mg/dL (0.3-1.0) 10/31/17 21:40 AST 38 U/L (13-39) 10/31/17 21:40 ALT 31 U/L (7-52) 10/31/17 21:40 Alkaline Phosphatase 109 U/L (34-104) H 10/31/17 21:40 Troponin I 0.04 ng/mL (0.01-0.05) 10/31/17 21:40 B-Natriuretic Peptide 959.0 pg/mL (5.0-100.0) H 11/03/17 04:05 Total Protein 7.1 gm/dL (6.0-8.3) 10/31/17 21:40 Albumin 3.4 gm/dL (4.2-5.5) L 10/31/17 21:40 Globulin 3.7 gm/dL 10/31/17 21:40 Albumin/Globulin Ratio 0.9 (1.0-1.8) L 10/31/17 21:40 Triglycerides 78 mg/dL (<150) 11/01/17 06:04 Cholesterol 89 mg/dL (<200) 11/01/17 06:04 LDL Cholesterol Direct 39 mg/dL (75-193) L 11/01/17 06:04 HDL Cholesterol 33 mg/dL (23-92) 11/01/17 06:04 TSH 0.55 uIU/ml (0.34-5.60) 11/01/17 06:04 Random Vancomycin 26.2 ug/mL (5.0-40.0) 11/05/17 05:00 - Physical Exam Vitals and I&O: Vital Signs Temp 97.6 F 11/05/17 07:00 Pulse 50 11/05/17 07:53 Resp 18 11/05/17 07:53 BP 111/67 11/05/17 07:00 Pulse Ox 100 11/05/17 07:53 Intake & Output 11/04/17 11/05/17 11/05/17 18:59 06:59 18:59 Intake Total 650 130 Balance 650 130 Weight (lbs) 69.264 kg 71.532 kg Intake: Intake, IV Amount 50 100 Piperacillin Sodium/ 50 100 Tazobact 2.25 gm In Sodium Chloride 0.9% 50 ml @ 100 mls/hr IV Q8HR [facility] Rx#:[id number] Oral 600 30 Other: # Voids 3 2 # Bowel Movements 2 Stool Characteristics Soft Formed Weight Source Bedscale Bedscale Active Medications: Current Medications Acetaminophen (Tylenol) 650 mg PO Q4H PRN PRN Reason: MILD PAIN 1-3/ FEVER ABOVE 101 Stop: 12/31/17 00:37 Last Admin: 11/03/17 04:49 Dose: 650 mg Aspirin (Aspirin Chewable) 81 mg PO DAILY [facility] Stop: 12/31/17 08:59 Last Admin: 11/05/17 09:07 Dose: 81 mg Atorvastatin Calcium (Lipitor) 10 mg PO HS [facility]; Protocol Stop: 12/31/17 20:59 Last Admin: 11/04/17 21:00 Dose: 10 mg Citalopram Hydrobromide (Celexa) 20 mg PO DAILY [facility]; Protocol Stop: 12/31/17 08:59 Last Admin: 11/05/17 09:08 Dose: 20 mg Donepezil HCl (Aricept) 5 mg PO DAILY [facility] Stop: 12/31/17 08:59 Last Admin: 11/05/17 09:07 Dose: 5 mg Ferrous Sulfate (Iron) 325 mg PO BID [facility] Stop: 12/31/17 08:59 Last Admin: 11/05/17 09:07 Dose: 325 mg Finasteride (Proscar) 5 mg PO DAILY [facility]; Protocol Stop: 12/31/17 08:59 Last Admin: 11/05/17 09:08 Dose: 5 mg Folic Acid (Folate) 1 mg PO DAILY [facility] Stop: 12/31/17 08:59 Last Admin: 11/05/17 09:07 Dose: 1 mg Heparin Sodium (Porcine) (Heparin) 5,000 units HD PRN PRN PRN Reason: DIALYSIS PORTS Stop: 12/31/17 08:51 Piperacillin Sod/Tazobactam (Sod 2.25 gm/ Sodium Chloride) 50 mls @ 100 mls/hr IV Q8HR [facility] Stop: 12/31/17 04:59 Last Infusion: 11/05/17 06:06 Dose: Infused Norepinephrine Bitartrate 4 mg (/ Dextrose) 254 mls @ 0 mls/hr IV TITR PRN; Protocol PRN Reason: BP MAINTENANCE (PER PROTOCOL) Stop: 12/31/17 16:01 Last Titration: 11/03/17 16:31 Dose: 0 mcg/min, 0 mls/hr Lactobacillus Rhamnosus (Culturelle 15b) 1 each PO DAILY [facility] Stop: 01/01/18 13:59 Last Admin: 11/05/17 09:07 Dose: 1 each Levetiracetam (Keppra) 500 mg PO BID [facility] Stop: 12/31/17 08:59 Last Admin: 11/05/17 09:07 Dose: 500 mg Lorazepam (Ativan) 1 mg IVP Q6HR PRN; Protocol PRN Reason: Seizure Stop: 12/31/17 08:51 Last Admin: 11/03/17 12:04 Dose: 1 mg Mirtazapine (Remeron) 15 mg PO HS [facility]; Protocol Stop: 12/31/17 20:59 Last Admin: 11/04/17 20:57 Dose: Not Given Miscellaneous (Vancomycin Iv Per Pharmacy) 1 ea PRN PRN PRN Reason: PROTOCOL Stop: 12/31/17 01:03 Miscellaneous (Probiotic Screen) 1 ea PRN PRN PRN Reason: PROTOCOL Stop: 01/01/18 12:28 Mupirocin (Bactroban Oint) 1 appl NS BID [facility] Stop: 11/07/17 09:01 Last Admin: 11/05/17 09:21 Dose: 1 appl Olanzapine (Zyprexa) 2.5 mg PO HS [facility]; Protocol Stop: 12/31/17 20:59 Last Admin: 11/04/17 20:57 Dose: Not Given Pantoprazole Sodium (Protonix) 40 mg PO DAILY [facility] Stop: 12/31/17 08:59 Last Admin: 11/05/17 09:07 Dose: 40 mg Polyethylene Glycol (Miralax) 17 gm PO DAILY [facility] Stop: 12/31/17 12:59 Last Admin: 11/05/17 09:21 Dose: Not Given Tamsulosin HCl (Flomax) 0.4 mg PO BID [facility] Stop: 12/31/17 08:59 Last Admin: 11/05/17 09:07 Dose: 0.4 mg General: Alert, No acute distress HEENT: Atraumatic, PERRLA, Mucous membr. moist/pink Neck: Supple, +2 carotid pulse wo bruit Cardiovascular: Regular rate, Normal S1, Normal S2 Lungs: Normal air movement Abdomen: Bowel sounds, Soft Extremities: no Edema Neurological: Sensation intact Skin: no Rash Psych/Mental Status: Mood NL - Procedures Procedures: Procedures Procedure Code Date INSERTION OF INFUSION DEV INTO SUP VENA CAVA, PERC APPROACH [id number] 01/16/17 PERFORMANCE OF URINARY FILTRATION, <6 HRS/DAY [id number] 09/01/17 ULTRASONOGRAPHY OF SUPERIOR VENA CAVA, GUIDANCE [id number] 01/16/17 Assessment/Plan - Problem List Patient Problems: All Active Problems HTN (hypertension) (Acute) I10 Hx of diabetes mellitus (Acute) Z86.39 Parkinson disease (Acute) G20 Septicemia (Acute) A41.9 infected cath (Acute) Nutritional Asmnt/Malnutr-PDOC - Dietary Evaluation Malnutrition Findings (Please click <Entered> for more info): Nutritional Asmnt/Malnutrition Start: 11/02/17 16: 00 Text: Status: Complete Freq: Protocol: Document 11/02/17 16:02 CARMEN (Rec: 11/02/17 16:14 CARMEN [email or web address]) Nutritional Asmnt/Malnutrition Patient General Information Nutritional Screening High Risk Diagnosis sepsis, PNA Pertinent Medical Hx/Surgical Hx HTN, Dm, CVA, ESRD, dementia Subjective Information Pt seen resting in bed at time of visit. Pt is now on NPO for possible surgery. Per nurse note, pt had dialysis today. Pt is on Levophed noted . Current Diet Order/ Nutrition Support NPO Pertinent Medications lipitor, iron, folate, culturelle, remeron, levophed, protonix, piperacillin, miralax Pertinent Labs 11/02 BUN 34, Cr 5.0, glucose 112 11/01 Na 135, Cr 3.7, glucose 101 Nutritional Hx/Data Height 1.68 m Height (Calculated Centimeters) 167.6 Current Weight (lbs) 67.132 kg Weight (Calculated Kilograms) 67.1 Weight (Calculated Grams) 34674.7 [place] Body Weight 142 Body Mass Index (BMI) 23.8 Weight Status Approriate GI Symptoms GI Symptoms None Last BM no BM Difficult in: None Skin Integrity/Comment: opening above permacath site reddned to left arm Estimated Nutritional Goals BEE in Kcals: Using Current wt Calories/Kcals/Kg 27-32 Kcals Calculated 3713-5596 Protein: Using Current wt Protein g/k.2 Protein Calculated 80 Fluid: ml 1809-2144ml (1ml/kcal) Nutritional Problem 2. Problem Problem increased nutrition needs Etiology increased metabolic demand Signs/Symptoms: pt on dialysis and dx of sepsis, PNA 1. Problem Problem altered nutrition related labs Etiology hx of ESRD Signs/Symptoms: BUN 34, Cr 5.0, Intervention/Recommendation Comments 1. Monitor NPO status. Resume oral diet when medically appropriate. If PO intake <50% , will consider offer Nepro to increase nutrition itnake. 2. Monitor PO intake, wt, labs and skin integrity 3. F/U as hifh risk in 2-3 days, 11/04-11/05 Expected Outcomes/Goals Expected Outcomes/Goals 1. PO intake to meet at least 75% of nutritional needs. 2. Wt stability, skin to remain intact, labs to approach WNL.
--- NOTE | 2017-11-05 10:21 | Diagnostic Imaging Report ---
Portable chest x-ray HISTORY: Shortness of breath, vascular catheter placement Compared with the prior exam of October 31, 2017, a new left-sided vascular catheter has been inserted. The tip is in the region of the superior vena cava. A previous right side catheter has been removed. No acute focal pulmonary processes. IMPRESSION: 1. Vascular catheter placement as noted above 2. No acute focal pulmonary processes
--- NOTE | 2017-11-05 10:51 | Operative Report ---
DATE OF SURGERY: 11/05/2017 PREOPERATIVE DIAGNOSES: 1. Staph septicemia. 2. End-stage renal disease. 3. Dementia. POSTOPERATIVE DIAGNOSES: 1. Staph septicemia. 2. End-stage renal disease. 3. Dementia. OPERATION DONE: Placement of Edmundo catheter, left subclavian vein under ultrasound guidance. DESCRIPTION OF PROCEDURE: The left chest was prepped with ChloraPrep and draped in appropriate manner. Lidocaine 1% was used to infiltrate the area identified on ultrasound. Incision was made and size 18 needle was used for the vein. Guidewire was inserted, the dilator and then the double lumen catheter. It was anchored to chest wall with 2-0 nylon. Portable chest x-ray is ordered. [facility]# [id number]
--- NOTE | 2017-11-05 13:12 | General Progress Note ---
Subjective - Review of Systems Service Date: 11/05/17 Subjective: more interactive, comfortable Objective - Results Result Diagrams: 11/04/17 06:30 11/05/17 05:00 Recent Labs: Laboratory Last Values WBC 4.3 Th/cmm (4.8-10.8) L 11/04/17 06:30 RBC 2.94 Mil/cmm (3.80-5.80) L 11/04/17 06:30 Hgb 9.4 gm/dL (12-16) L 11/04/17 06:30 Hct 27.3 % (41.0-60) L 11/04/17 06:30 MCV 93.0 fl (80-99) 11/04/17 06:30 MCH 31.9 pg (27.0-31.0) H 11/04/17 06:30 MCHC Differential 34.3 pg (28.0-36.0) 11/04/17 06:30 RDW 13.6 % (11.5-20.0) 11/04/17 06:30 Plt Count 151 Th/cmm (150-400) 11/04/17 06:30 MPV 7.6 fl 11/04/17 06:30 Add Manual Diff YES 11/01/17 06:04 Neutrophils % 67.9 % (40.0-80.0) 11/04/17 06:30 Band Neutrophils % 4 % (0-10) 11/01/17 06:04 Lymphocytes % 11.5 % (20.0-50.0) L 11/04/17 06:30 Monocytes % 12.4 % (2.0-10.0) H 11/04/17 06:30 Eosinophils % 7.0 % (0.0-5.0) H 11/04/17 06:30 Basophils % 1.2 % (0.0-2.0) 11/04/17 06:30 Neutrophils (Manual) 84 % (40-80) H 11/01/17 06:04 Lymphocytes 6 % (20-50) L 11/01/17 06:04 Monocytes 6 % (2-10) 11/01/17 06:04 Eosinophils 0 % (0-5) 11/01/17 06:04 Basophils 0 % (0-3) 11/01/17 06:04 PT 11.0 SECONDS (9.5-11.5) 10/31/17 21:40 INR 1.06 (0.5-1.4) 10/31/17 21:40 Sodium 139 mEq/L (136-145) 11/05/17 05:00 Potassium 3.9 mEq/L (3.5-5.1) 11/05/17 05:00 Chloride 106 mEq/L (98-107) 11/05/17 05:00 Carbon Dioxide 23.3 mEq/L (21.0-31.0) 11/05/17 05:00 Anion Gap 13.6 (7.0-16.0) 11/05/17 05:00 BUN 28 mg/dL (7-25) H 11/05/17 05:00 Creatinine 5.5 mg/dL (0.7-1.3) H* 11/05/17 05:00 Est GFR ( Amer) TNP 11/05/17 05:00 Est GFR (Non-Af Amer) TNP 11/05/17 05:00 BUN/Creatinine Ratio 5.1 11/05/17 05:00 Glucose 86 mg/dL (70-105) 11/05/17 05:00 Whole Bld Lactic Acid 1.36 mmol/L (0.60-1.99) 11/01/17 17:50 Calcium 9.4 mg/dL (8.6-10.3) 11/05/17 05:00 Magnesium 1.9 mg/dL (1.9-2.7) 11/05/17 05:00 Total Bilirubin 0.6 mg/dL (0.3-1.0) 10/31/17 21:40 AST 38 U/L (13-39) 10/31/17 21:40 ALT 31 U/L (7-52) 10/31/17 21:40 Alkaline Phosphatase 109 U/L (34-104) H 10/31/17 21:40 Troponin I 0.04 ng/mL (0.01-0.05) 10/31/17 21:40 B-Natriuretic Peptide 959.0 pg/mL (5.0-100.0) H 11/03/17 04:05 Total Protein 7.1 gm/dL (6.0-8.3) 10/31/17 21:40 Albumin 3.4 gm/dL (4.2-5.5) L 10/31/17 21:40 Globulin 3.7 gm/dL 10/31/17 21:40 Albumin/Globulin Ratio 0.9 (1.0-1.8) L 10/31/17 21:40 Triglycerides 78 mg/dL (<150) 11/01/17 06:04 Cholesterol 89 mg/dL (<200) 11/01/17 06:04 LDL Cholesterol Direct 39 mg/dL (75-193) L 11/01/17 06:04 HDL Cholesterol 33 mg/dL (23-92) 11/01/17 06:04 TSH 0.55 uIU/ml (0.34-5.60) 11/01/17 06:04 Random Vancomycin 26.2 ug/mL (5.0-40.0) 11/05/17 05:00 - Physical Exam Vitals and I&O: Vital Signs Temp 97.4 F 11/05/17 12:00 Pulse 55 11/05/17 12:00 Resp 13 11/05/17 12:00 BP 126/58 11/05/17 12:00 Pulse Ox 100 11/05/17 12:00 Intake & Output 11/04/17 11/05/17 11/05/17 18:59 06:59 18:59 Intake Total 650 130 Balance 650 130 Weight (lbs) 69.264 kg 71.532 kg Intake: Intake, IV Amount 50 100 Piperacillin Sodium/ 50 100 Tazobact 2.25 gm In Sodium Chloride 0.9% 50 ml @ 100 mls/hr IV Q8HR [facility] Rx#:[id number] Oral 600 30 Other: # Voids 3 2 # Bowel Movements 2 Stool Characteristics Soft Formed Weight Source Bedscale Bedscale Active Medications: Current Medications Acetaminophen (Tylenol) 650 mg PO Q4H PRN PRN Reason: MILD PAIN 1-3/ FEVER ABOVE 101 Stop: 12/31/17 00:37 Last Admin: 11/03/17 04:49 Dose: 650 mg Aspirin (Aspirin Chewable) 81 mg PO DAILY [facility] Stop: 12/31/17 08:59 Last Admin: 11/05/17 09:07 Dose: 81 mg Atorvastatin Calcium (Lipitor) 10 mg PO HS [facility]; Protocol Stop: 12/31/17 20:59 Last Admin: 11/04/17 21:00 Dose: 10 mg Citalopram Hydrobromide (Celexa) 20 mg PO DAILY [facility]; Protocol Stop: 12/31/17 08:59 Last Admin: 11/05/17 09:08 Dose: 20 mg Donepezil HCl (Aricept) 5 mg PO DAILY [facility] Stop: 12/31/17 08:59 Last Admin: 11/05/17 09:07 Dose: 5 mg Ferrous Sulfate (Iron) 325 mg PO BID [facility] Stop: 12/31/17 08:59 Last Admin: 11/05/17 09:07 Dose: 325 mg Finasteride (Proscar) 5 mg PO DAILY [facility]; Protocol Stop: 12/31/17 08:59 Last Admin: 11/05/17 09:08 Dose: 5 mg Folic Acid (Folate) 1 mg PO DAILY [facility] Stop: 12/31/17 08:59 Last Admin: 11/05/17 09:07 Dose: 1 mg Heparin Sodium (Porcine) (Heparin) 5,000 units HD PRN PRN PRN Reason: DIALYSIS PORTS Stop: 12/31/17 08:51 Piperacillin Sod/Tazobactam (Sod 2.25 gm/ Sodium Chloride) 50 mls @ 100 mls/hr IV Q8HR [facility] Stop: 12/31/17 04:59 Last Infusion: 11/05/17 06:06 Dose: Infused Norepinephrine Bitartrate 4 mg (/ Dextrose) 254 mls @ 0 mls/hr IV TITR PRN; Protocol PRN Reason: BP MAINTENANCE (PER PROTOCOL) Stop: 12/31/17 16:01 Last Titration: 11/03/17 16:31 Dose: 0 mcg/min, 0 mls/hr Lactobacillus Rhamnosus (Culturelle 15b) 1 each PO DAILY [facility] Stop: 01/01/18 13:59 Last Admin: 11/05/17 09:07 Dose: 1 each Levetiracetam (Keppra) 500 mg PO BID [facility] Stop: 12/31/17 08:59 Last Admin: 11/05/17 09:07 Dose: 500 mg Lorazepam (Ativan) 1 mg IVP Q6HR PRN; Protocol PRN Reason: Seizure Stop: 12/31/17 08:51 Last Admin: 11/03/17 12:04 Dose: 1 mg Mirtazapine (Remeron) 15 mg PO HS [facility]; Protocol Stop: 12/31/17 20:59 Last Admin: 11/04/17 20:57 Dose: Not Given Miscellaneous (Vancomycin Iv Per Pharmacy) 1 ea PRN PRN PRN Reason: PROTOCOL Stop: 12/31/17 01:03 Miscellaneous (Probiotic Screen) 1 ea PRN PRN PRN Reason: PROTOCOL Stop: 01/01/18 12:28 Mupirocin (Bactroban Oint) 1 appl NS BID [facility] Stop: 11/07/17 09:01 Last Admin: 11/05/17 09:21 Dose: 1 appl Olanzapine (Zyprexa) 2.5 mg PO HS [facility]; Protocol Stop: 12/31/17 20:59 Last Admin: 11/04/17 20:57 Dose: Not Given Pantoprazole Sodium (Protonix) 40 mg PO DAILY [facility] Stop: 12/31/17 08:59 Last Admin: 11/05/17 09:07 Dose: 40 mg Polyethylene Glycol (Miralax) 17 gm PO DAILY [facility] Stop: 12/31/17 12:59 Last Admin: 11/05/17 09:21 Dose: Not Given Tamsulosin HCl (Flomax) 0.4 mg PO BID [facility] Stop: 12/31/17 08:59 Last Admin: 11/05/17 09:07 Dose: 0.4 mg General: Alert, No acute distress HEENT: Atraumatic, PERRLA, Mucous membr. moist/pink Neck: Supple, +2 carotid pulse wo bruit Cardiovascular: Regular rate, Normal S1, Normal S2 Lungs: Normal air movement Abdomen: Bowel sounds, Soft Extremities: no Edema Neurological: Sensation intact Skin: no Rash Psych/Mental Status: Mood NL - Procedures Procedures: Procedures Procedure Code Date INSERTION OF INFUSION DEV INTO L SUBCLAV VEIN, PERC APPROACH [id number] 10/31/17 INSERTION OF INFUSION DEV INTO SUP VENA CAVA, PERC APPROACH [id number] 01/16/17 PERFORMANCE OF URINARY FILTRATION, <6 HRS/DAY [id number] 09/01/17 ULTRASONOGRAPHY OF LEFT SUBCLAVIAN VEIN, GUIDANCE [id number] 10/31/17 ULTRASONOGRAPHY OF SUPERIOR VENA CAVA, GUIDANCE [id number] 01/16/17 Assessment/Plan - Problem List Patient Problems: All Active Problems HTN (hypertension) (Acute) I10 Hx of diabetes mellitus (Acute) Z86.39 Parkinson disease (Acute) G20 Septicemia (Acute) A41.9 infected cath (Acute) - Assessment Assessment: ESRD on HD GPC septicemia 2/2 line infxn Shock: septic Constipation Ess Htn w/ CKD GERD Dyslipidemia MRSA nares - Plan Plan: Lab - Result Diagrams 11/02/17 04:10 11/02/17 04:10 Current Medications Acetaminophen (Tylenol) 650 mg PO Q4H PRN PRN Reason: MILD PAIN 1-3/ FEVER ABOVE 101 Stop: 12/31/17 00:37 Last Admin: 11/01/17 19:36 Dose: 650 mg Aspirin (Aspirin Chewable) 81 mg PO DAILY [facility] Stop: 12/31/17 08:59 Last Admin: 11/02/17 09:42 Dose: 81 mg Atorvastatin Calcium (Lipitor) 10 mg PO HS [facility]; Protocol Stop: 12/31/17 20:59 Last Admin: 11/01/17 20:58 Dose: 10 mg Citalopram Hydrobromide (Celexa) 20 mg PO DAILY [facility]; Protocol Stop: 12/31/17 08:59 Donepezil HCl (Aricept) 5 mg PO DAILY [facility] Stop: 12/31/17 08:59 Last Admin: 11/02/17 09:41 Dose: 5 mg Ferrous Sulfate (Iron) 325 mg PO BID [facility] Stop: 12/31/17 08:59 Last Admin: 11/02/17 09:43 Dose: 325 mg Finasteride (Proscar) 5 mg PO DAILY [facility]; Protocol Stop: 12/31/17 08:59 Last Admin: 11/02/17 09:47 Dose: 5 mg Folic Acid (Folate) 1 mg PO DAILY [facility] Stop: 12/31/17 08:59 Last Admin: 11/02/17 09:43 Dose: 1 mg Heparin Sodium (Porcine) (Heparin) 5,000 units HD PRN PRN PRN Reason: DIALYSIS PORTS Stop: 12/31/17 08:51 Piperacillin Sod/Tazobactam (Sod 2.25 gm/ Sodium Chloride) 50 mls @ 100 mls/hr IV Q8HR [facility] Stop: 12/31/17 04:59 Last Admin: 11/02/17 12:56 Dose: 100 mls/hr Norepinephrine Bitartrate 4 mg (/ Dextrose) 254 mls @ 0 mls/hr IV TITR PRN; Protocol PRN Reason: BP MAINTENANCE (PER PROTOCOL) Stop: 12/31/17 16:01 Last Titration: 11/02/17 06:18 Dose: 4 mcg/min, 15.24 mls/hr Lactobacillus Rhamnosus (Culturelle 15b) 1 each PO DAILY [facility] Stop: 01/01/18 13:59 Levetiracetam (Keppra) 500 mg PO BID [facility] Stop: 12/31/17 08:59 Last Admin: 11/02/17 09:41 Dose: 500 mg Lorazepam (Ativan) 1 mg IVP Q6HR PRN; Protocol PRN Reason: Seizure Stop: 12/31/17 08:51 Last Admin: 11/01/17 18:24 Dose: 1 mg Mirtazapine (Remeron) 15 mg PO HS [facility]; Protocol Stop: 12/31/17 20:59 Miscellaneous (Vancomycin Iv Per Pharmacy) 1 ea PRN PRN PRN Reason: PROTOCOL Stop: 12/31/17 01:03 Miscellaneous (Probiotic Screen) 1 [facility] PRN PRN PRN Reason: PROTOCOL Stop: 01/01/18 12:28 Mupirocin (Bactroban Oint) 1 appl NS BID [facility] Stop: 11/07/17 09:01 Olanzapine (Zyprexa) 2.5 mg PO HS [facility]; Protocol Stop: 12/31/17 20:59 Pantoprazole Sodium (Protonix) 40 mg PO DAILY [facility] Stop: 12/31/17 08:59 Last Admin: 11/02/17 09:41 Dose: 40 mg Polyethylene Glycol (Miralax) 17 gm PO DAILY [facility] Stop: 12/31/17 12:59 Last Admin: 11/02/17 09:41 Dose: 17 gm Tamsulosin HCl (Flomax) 0.4 mg PO BID [facility] Stop: 12/31/17 08:59 Last Admin: 11/02/17 09:41 Dose: 0.4 mg Lab - Result Diagrams 11/04/17 06:30 11/05/17 05:00 BC grew GPC currently being dialyzed on Zosyn off Levo replaced K Nutritional Asmnt/Malnutr-PDOC - Dietary Evaluation Malnutrition Findings (Please click <Entered> for more info): Nutritional Asmnt/Malnutrition Start: 11/02/17 16: 00 Text: Status: Complete Freq: Protocol: Document 11/02/17 16:02 [email or web address] (Rec: 11/02/17 16:14 [facility] [id number]) Nutritional Asmnt/Malnutrition Patient General Information Nutritional Screening High Risk Diagnosis sepsis, PNA Pertinent Medical Hx/Surgical Hx HTN, Dm, CVA, ESRD, dementia Subjective Information Pt seen resting in bed at time of visit. Pt is now on NPO for possible surgery. Per nurse note, pt had dialysis today. Pt is on Levophed noted . Current Diet Order/ Nutrition Support NPO Pertinent Medications lipitor, iron, folate, culturelle, remeron, levophed, protonix, piperacillin, miralax Pertinent Labs 11/02 BUN 34, Cr 5.0, glucose 112 11/01 Na 135, Cr 3.7, glucose 101 Nutritional Hx/Data Height 1.68 m Height (Calculated Centimeters) 167.6 Current Weight (lbs) 67.132 kg Weight (Calculated Kilograms) 67.1 Weight (Calculated Grams) 90686.7 [place] Body Weight 142 Body Mass Index (BMI) 23.8 Weight Status Approriate GI Symptoms GI Symptoms None Last BM no BM Difficult in: None Skin Integrity/Comment: opening above permacath site reddned to left arm Estimated Nutritional Goals BEE in Kcals: Using Current wt Calories/Kcals/Kg 27-32 Kcals Calculated 5289-6127 Protein: Using Current wt Protein g/k.2 Protein Calculated 80 Fluid: ml 1809-2144ml (1ml/kcal) Nutritional Problem 2. Problem Problem increased nutrition needs Etiology increased metabolic demand Signs/Symptoms: pt on dialysis and dx of sepsis, PNA 1. Problem Problem altered nutrition related labs Etiology hx of ESRD Signs/Symptoms: BUN 34, Cr 5.0, Intervention/Recommendation Comments 1. Monitor NPO status. Resume oral diet when medically appropriate. If PO intake <50% , will consider offer Nepro to increase nutrition itnake. 2. Monitor PO intake, wt, labs and skin integrity 3. F/U as hifh risk in 2-3 days, 11/04-11/05 Expected Outcomes/Goals Expected Outcomes/Goals 1. PO intake to meet at least 75% of nutritional needs. 2. Wt stability, skin to remain intact, labs to approach WNL.
[2017-11-05] MEDS: Atorvastatin Calcium 10 MG TAB PO SCH (20:25)
--- NOTE | 2017-11-06 08:17 | Infectious Disease Prog Note ---
Infectious Disease Subjective - Review of Systems Service Date: 11/06/17 Subjective: There is no new change. 3/3 Blood cultures grew MRSA. Infectious Disease Objective - Results Result Diagrams: 11/04/17 06:30 11/05/17 05:00 Recent Labs: Laboratory Last Values WBC 4.3 Th/cmm (4.8-10.8) L 11/04/17 06:30 RBC 2.94 Mil/cmm (3.80-5.80) L 11/04/17 06:30 Hgb 9.4 gm/dL (12-16) L 11/04/17 06:30 Hct 27.3 % (41.0-60) L 11/04/17 06:30 MCV 93.0 fl (80-99) 11/04/17 06:30 MCH 31.9 pg (27.0-31.0) H 11/04/17 06:30 MCHC Differential 34.3 pg (28.0-36.0) 11/04/17 06:30 RDW 13.6 % (11.5-20.0) 11/04/17 06:30 Plt Count 151 Th/cmm (150-400) 11/04/17 06:30 MPV 7.6 fl 11/04/17 06:30 Add Manual Diff YES 11/01/17 06:04 Neutrophils % 67.9 % (40.0-80.0) 11/04/17 06:30 Band Neutrophils % 4 % (0-10) 11/01/17 06:04 Lymphocytes % 11.5 % (20.0-50.0) L 11/04/17 06:30 Monocytes % 12.4 % (2.0-10.0) H 11/04/17 06:30 Eosinophils % 7.0 % (0.0-5.0) H 11/04/17 06:30 Basophils % 1.2 % (0.0-2.0) 11/04/17 06:30 Neutrophils (Manual) 84 % (40-80) H 11/01/17 06:04 Lymphocytes 6 % (20-50) L 11/01/17 06:04 Monocytes 6 % (2-10) 11/01/17 06:04 Eosinophils 0 % (0-5) 11/01/17 06:04 Basophils 0 % (0-3) 11/01/17 06:04 PT 11.0 SECONDS (9.5-11.5) 10/31/17 21:40 INR 1.06 (0.5-1.4) 10/31/17 21:40 Sodium 139 mEq/L (136-145) 11/05/17 05:00 Potassium 3.9 mEq/L (3.5-5.1) 11/05/17 05:00 Chloride 106 mEq/L (98-107) 11/05/17 05:00 Carbon Dioxide 23.3 mEq/L (21.0-31.0) 11/05/17 05:00 Anion Gap 13.6 (7.0-16.0) 11/05/17 05:00 BUN 28 mg/dL (7-25) H 11/05/17 05:00 Creatinine 5.5 mg/dL (0.7-1.3) H* 11/05/17 05:00 Est GFR ( Amer) TNP 11/05/17 05:00 Est GFR (Non-Af Amer) TNP 11/05/17 05:00 BUN/Creatinine Ratio 5.1 11/05/17 05:00 Glucose 86 mg/dL (70-105) 11/05/17 05:00 Whole Bld Lactic Acid 1.36 mmol/L (0.60-1.99) 11/01/17 17:50 Calcium 9.4 mg/dL (8.6-10.3) 11/05/17 05:00 Magnesium 1.9 mg/dL (1.9-2.7) 11/05/17 05:00 Total Bilirubin 0.6 mg/dL (0.3-1.0) 10/31/17 21:40 AST 38 U/L (13-39) 10/31/17 21:40 ALT 31 U/L (7-52) 10/31/17 21:40 Alkaline Phosphatase 109 U/L (34-104) H 10/31/17 21:40 Troponin I 0.04 ng/mL (0.01-0.05) 10/31/17 21:40 B-Natriuretic Peptide 959.0 pg/mL (5.0-100.0) H 11/03/17 04:05 Total Protein 7.1 gm/dL (6.0-8.3) 10/31/17 21:40 Albumin 3.4 gm/dL (4.2-5.5) L 10/31/17 21:40 Globulin 3.7 gm/dL 10/31/17 21:40 Albumin/Globulin Ratio 0.9 (1.0-1.8) L 10/31/17 21:40 Triglycerides 78 mg/dL (<150) 11/01/17 06:04 Cholesterol 89 mg/dL (<200) 11/01/17 06:04 LDL Cholesterol Direct 39 mg/dL (75-193) L 11/01/17 06:04 HDL Cholesterol 33 mg/dL (23-92) 11/01/17 06:04 TSH 0.55 uIU/ml (0.34-5.60) 11/01/17 06:04 Random Vancomycin 26.2 ug/mL (5.0-40.0) 11/05/17 05:00 - Physical Exam Vitals and I&O: Vital Signs Temp 98.8 F 11/06/17 06:00 Pulse 43 11/06/17 07:02 Resp 18 11/06/17 07:02 BP 117/72 11/06/17 06:00 Pulse Ox 100 11/06/17 07:02 Intake & Output 11/05/17 11/06/17 11/06/17 18:59 06:59 18:59 Intake Total 50 750 Output Total 1 Balance 50 749 Weight (lbs) 69.853 kg Intake: Intake, IV Amount 50 50 Piperacillin Sodium/ 50 50 Tazobact 2.25 gm In Sodium Chloride 0.9% 50 ml @ 100 mls/hr IV Q8HR [facility] Rx#:[id number] Oral 700 Output: Urine/Stool Mix 1 Other: # Voids 2 # Bowel Movements 1 Stool Characteristics Soft Formed Weight Source Bedscale Active Medications: Current Medications Acetaminophen (Tylenol) 650 mg PO Q4H PRN PRN Reason: MILD PAIN 1-3/ FEVER ABOVE 101 Stop: 12/31/17 00:37 Last Admin: 11/03/17 04:49 Dose: 650 mg Aspirin (Aspirin Chewable) 81 mg PO DAILY [facility] Stop: 12/31/17 08:59 Last Admin: 11/05/17 09:07 Dose: 81 mg Atorvastatin Calcium (Lipitor) 10 mg PO HS [facility]; Protocol Stop: 12/31/17 20:59 Last Admin: 11/05/17 20:25 Dose: 10 mg Citalopram Hydrobromide (Celexa) 20 mg PO DAILY [facility]; Protocol Stop: 12/31/17 08:59 Last Admin: 11/05/17 09:08 Dose: 20 mg Donepezil HCl (Aricept) 5 mg PO DAILY [facility] Stop: 12/31/17 08:59 Last Admin: 11/05/17 09:07 Dose: 5 mg Ferrous Sulfate (Iron) 325 mg PO BID [facility] Stop: 12/31/17 08:59 Last Admin: 11/05/17 17:53 Dose: 325 mg Finasteride (Proscar) 5 mg PO DAILY [facility]; Protocol Stop: 12/31/17 08:59 Last Admin: 11/05/17 09:08 Dose: 5 mg Folic Acid (Folate) 1 mg PO DAILY [facility] Stop: 12/31/17 08:59 Last Admin: 11/05/17 09:07 Dose: 1 mg Heparin Sodium (Porcine) (Heparin) 5,000 units HD PRN PRN PRN Reason: DIALYSIS PORTS Stop: 12/31/17 08:51 Piperacillin Sod/Tazobactam (Sod 2.25 gm/ Sodium Chloride) 50 mls @ 100 mls/hr IV Q8HR [facility] Stop: 12/31/17 04:59 Last Admin: 11/06/17 04:46 Dose: 100 mls/hr Norepinephrine Bitartrate 4 mg (/ Dextrose) 254 mls @ 0 mls/hr IV TITR PRN; Protocol PRN Reason: BP MAINTENANCE (PER PROTOCOL) Stop: 12/31/17 16:01 Last Titration: 11/03/17 16:31 Dose: 0 mcg/min, 0 mls/hr Lactobacillus Rhamnosus (Culturelle 15b) 1 each PO DAILY [facility] Stop: 01/01/18 13:59 Last Admin: 11/05/17 09:07 Dose: 1 each Levetiracetam (Keppra) 500 mg PO BID [facility] Stop: 12/31/17 08:59 Last Admin: 11/05/17 17:52 Dose: 500 mg Lorazepam (Ativan) 1 mg IVP Q6HR [facility]; Protocol PRN Reason: Seizure Stop: 12/31/17 08:51 Last Admin: 11/03/17 12:04 Dose: 1 mg Mirtazapine (Remeron) 15 mg PO HS [facility]; Protocol Stop: 12/31/17 20:59 Last Admin: 11/05/17 20:24 Dose: Not Given Miscellaneous (Vancomycin Iv Per Pharmacy) 1 ea PRN PRN PRN Reason: PROTOCOL Stop: 12/31/17 01:03 Miscellaneous (Probiotic Screen) 1 ea PRN PRN PRN Reason: PROTOCOL Stop: 01/01/18 12:28 Mupirocin (Bactroban Oint) 1 appl NS BID [facility] Stop: 11/07/17 09:01 Last Admin: 11/05/17 17:52 Dose: 1 appl Olanzapine (Zyprexa) 2.5 mg PO HS [facility]; Protocol Stop: 12/31/17 20:59 Last Admin: 11/05/17 20:24 Dose: Not Given Pantoprazole Sodium (Protonix) 40 mg PO DAILY [facility] Stop: 12/31/17 08:59 Last Admin: 11/05/17 09:07 Dose: 40 mg Polyethylene Glycol (Miralax) 17 gm PO DAILY [facility] Stop: 12/31/17 12:59 Last Admin: 11/05/17 09:21 Dose: Not Given Tamsulosin HCl (Flomax) 0.4 mg PO BID [facility] Stop: 12/31/17 08:59 Last Admin: 11/05/17 17:52 Dose: 0.4 mg General: no acute distress, well developed, well nourished HEENT: atraumatic, normocephalic, PERRLA Neck: supple, no thyromegaly Cardiovascular: S1S2, regular Lungs: clear to auscultation bilaterally, clear to percussion Abdomen: soft, no tender, no distended Extremities: no cyanosis, no clubbing, no edema Neurological: awake, alert, oriented Skin: intact - Procedures Procedures: Procedures Procedure Code Date INSERTION OF INFUSION DEV INTO L SUBCLAV VEIN, PERC APPROACH [id number] 10/31/17 INSERTION OF INFUSION DEV INTO SUP VENA CAVA, PERC APPROACH [id number] 01/16/17 PERFORMANCE OF URINARY FILTRATION, <6 HRS/DAY [id number] 09/01/17 ULTRASONOGRAPHY OF LEFT SUBCLAVIAN VEIN, GUIDANCE [id number] 10/31/17 ULTRASONOGRAPHY OF SUPERIOR VENA CAVA, GUIDANCE [id number] 01/16/17 Infectious Disease Assmt/Plan - Problem List Patient Problems: All Active Problems HTN (hypertension) (Acute) I10 Hx of diabetes mellitus (Acute) Z86.39 Parkinson disease (Acute) G20 Septicemia (Acute) A41.9 infected cath (Acute) - Assessment Assessment: 1. Sepsis. Septic shock. Pneumonia versus line sepsis. Staph sepsis, 3/3 sets are positive 2. Pneumonia. 3. 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 4. Diabetes mellitus type 2. 5. Hypertension. - Plan Plan: Continue same management. Antibiotic-dang, vancomycin IV and Zosyn. No permanent access at this time, as patient is bacteremic. may wait for at least 6 weeks for any permanent access. Nutritional Asmnt/Malnutr-PDOC - Dietary Evaluation Malnutrition Findings (Please click <Entered> for more info): Nutritional Asmnt/Malnutrition Start: 11/02/17 16: 00 Text: Status: Complete Freq: Protocol: Document 11/02/17 16:02 CARMEN (Rec: 11/02/17 16:14 [id number]) Nutritional Asmnt/Malnutrition Patient General Information Nutritional Screening High Risk Diagnosis sepsis, PNA Pertinent Medical Hx/Surgical Hx HTN, Dm, CVA, ESRD, dementia Subjective Information Pt seen resting in bed at time of visit. Pt is now on NPO for possible surgery. Per nurse note, pt had dialysis today. Pt is on Levophed noted . Current Diet Order/ Nutrition Support NPO Pertinent Medications lipitor, iron, folate, culturelle, remeron, levophed, protonix, piperacillin, miralax Pertinent Labs 11/02 BUN 34, Cr 5.0, glucose 112 9/9 Na 135, Cr 3.7, glucose 101 Nutritional Hx/Data Height 1.68 m Height (Calculated Centimeters) 167.6 Current Weight (lbs) 67.132 kg Weight (Calculated Kilograms) 67.1 Weight (Calculated Grams) 42405.7 [place] Body Weight 142 Body Mass Index (BMI) 23.8 Weight Status Approriate GI Symptoms GI Symptoms None Last BM no BM Difficult in: None Skin Integrity/Comment: opening above permacath site reddned to left arm Estimated Nutritional Goals BEE in Kcals: Using Current wt Calories/Kcals/Kg 27-32 Kcals Calculated 3602-9999 Protein: Using Current wt Protein g/k.2 Protein Calculated 80 Fluid: ml 1809-2144ml (1ml/kcal) Nutritional Problem 2. Problem Problem increased nutrition needs Etiology increased metabolic demand Signs/Symptoms: pt on dialysis and dx of sepsis, PNA 1. Problem Problem altered nutrition related labs Etiology hx of ESRD Signs/Symptoms: BUN 34, Cr 5.0, Intervention/Recommendation Comments 1. Monitor NPO status. Resume oral diet when medically appropriate. If PO intake <50% , will consider offer Nepro to increase nutrition itnake. 2. Monitor PO intake, wt, labs and skin integrity 3. F/U as hifh risk in 2-3 days, 11/04-11/05 Expected Outcomes/Goals Expected Outcomes/Goals 1. PO intake to meet at least 75% of nutritional needs. 2. Wt stability, skin to remain intact, labs to approach WNL.
[2017-11-06] MEDS: Pantoprazole 40 mg EC Tab PO SCH (09:09)
[2017-11-06] MEDS: POLYETHYLENE GLYCOL 3350 17 GM PACK PO SCH (09:10)
[2017-11-06] MEDS: Ferrous Sulfate 325 MG TAB PO SCH ×2 (09:10→17:35)
[2017-11-06] MEDS: Aspirin 81mg Chewable Tab PO SCH (09:11)
[2017-11-06] MEDS: Lactobacillus Rhamnosus GG 15 Billion CFU CAP.SPRINK PO SCH (09:11)
--- NOTE | 2017-11-06 14:49 | General Progress Note ---
Subjective - Review of Systems Service Date: 11/06/17 Subjective: more interactive, comfortable Objective - Results Result Diagrams: 11/04/17 06:30 11/05/17 05:00 Recent Labs: Laboratory Last Values WBC 4.3 Th/cmm (4.8-10.8) L 11/04/17 06:30 RBC 2.94 Mil/cmm (3.80-5.80) L 11/04/17 06:30 Hgb 9.4 gm/dL (12-16) L 11/04/17 06:30 Hct 27.3 % (41.0-60) L 11/04/17 06:30 MCV 93.0 fl (80-99) 11/04/17 06:30 MCH 31.9 pg (27.0-31.0) H 11/04/17 06:30 MCHC Differential 34.3 pg (28.0-36.0) 11/04/17 06:30 RDW 13.6 % (11.5-20.0) 11/04/17 06:30 Plt Count 151 Th/cmm (150-400) 11/04/17 06:30 MPV 7.6 fl 11/04/17 06:30 Add Manual Diff YES 11/01/17 06:04 Neutrophils % 67.9 % (40.0-80.0) 11/04/17 06:30 Band Neutrophils % 4 % (0-10) 11/01/17 06:04 Lymphocytes % 11.5 % (20.0-50.0) L 11/04/17 06:30 Monocytes % 12.4 % (2.0-10.0) H 11/04/17 06:30 Eosinophils % 7.0 % (0.0-5.0) H 11/04/17 06:30 Basophils % 1.2 % (0.0-2.0) 11/04/17 06:30 Neutrophils (Manual) 84 % (40-80) H 11/01/17 06:04 Lymphocytes 6 % (20-50) L 11/01/17 06:04 Monocytes 6 % (2-10) 11/01/17 06:04 Eosinophils 0 % (0-5) 11/01/17 06:04 Basophils 0 % (0-3) 11/01/17 06:04 PT 11.0 SECONDS (9.5-11.5) 10/31/17 21:40 INR 1.06 (0.5-1.4) 10/31/17 21:40 Sodium 139 mEq/L (136-145) 11/05/17 05:00 Potassium 3.9 mEq/L (3.5-5.1) 11/05/17 05:00 Chloride 106 mEq/L (98-107) 11/05/17 05:00 Carbon Dioxide 23.3 mEq/L (21.0-31.0) 11/05/17 05:00 Anion Gap 13.6 (7.0-16.0) 11/05/17 05:00 BUN 28 mg/dL (7-25) H 11/05/17 05:00 Creatinine 5.5 mg/dL (0.7-1.3) H* 11/05/17 05:00 Est GFR ( Amer) TNP 11/05/17 05:00 Est GFR (Non-Af Amer) TNP 11/05/17 05:00 BUN/Creatinine Ratio 5.1 11/05/17 05:00 Glucose 86 mg/dL (70-105) 11/05/17 05:00 Whole Bld Lactic Acid 1.36 mmol/L (0.60-1.99) 11/01/17 17:50 Calcium 9.4 mg/dL (8.6-10.3) 11/05/17 05:00 Magnesium 1.9 mg/dL (1.9-2.7) 11/05/17 05:00 Total Bilirubin 0.6 mg/dL (0.3-1.0) 10/31/17 21:40 AST 38 U/L (13-39) 10/31/17 21:40 ALT 31 U/L (7-52) 10/31/17 21:40 Alkaline Phosphatase 109 U/L (34-104) H 10/31/17 21:40 Troponin I 0.04 ng/mL (0.01-0.05) 10/31/17 21:40 B-Natriuretic Peptide 959.0 pg/mL (5.0-100.0) H 11/03/17 04:05 Total Protein 7.1 gm/dL (6.0-8.3) 10/31/17 21:40 Albumin 3.4 gm/dL (4.2-5.5) L 10/31/17 21:40 Globulin 3.7 gm/dL 10/31/17 21:40 Albumin/Globulin Ratio 0.9 (1.0-1.8) L 10/31/17 21:40 Triglycerides 78 mg/dL (<150) 11/01/17 06:04 Cholesterol 89 mg/dL (<200) 11/01/17 06:04 LDL Cholesterol Direct 39 mg/dL (75-193) L 11/01/17 06:04 HDL Cholesterol 33 mg/dL (23-92) 11/01/17 06:04 TSH 0.55 uIU/ml (0.34-5.60) 11/01/17 06:04 Random Vancomycin 26.2 ug/mL (5.0-40.0) 11/05/17 05:00 - Physical Exam Vitals and I&O: Vital Signs Temp 98.6 F 11/06/17 08:00 Pulse 52 11/06/17 10:00 Resp 14 11/06/17 10:00 BP 110/71 11/06/17 10:00 Pulse Ox 98 11/06/17 10:00 Intake & Output 11/05/17 11/06/17 11/06/17 18:59 06:59 18:59 Intake Total 50 750 50 Output Total 1 Balance 50 749 50 Weight (lbs) 69.853 kg Intake: Intake, IV Amount 50 50 50 Piperacillin Sodium/ 50 50 50 Tazobact 2.25 gm In Sodium Chloride 0.9% 50 ml @ 100 mls/hr IV Q8HR [facility] Rx#:[id number] Oral 700 Output: Urine/Stool Mix 1 Other: # Voids 2 # Bowel Movements 1 Stool Characteristics Soft Formed Weight Source Bedscale Active Medications: Current Medications Acetaminophen (Tylenol) 650 mg PO Q4H PRN PRN Reason: MILD PAIN 1-3/ FEVER ABOVE 101 Stop: 12/31/17 00:37 Last Admin: 11/03/17 04:49 Dose: 650 mg Aspirin (Aspirin Chewable) 81 mg PO DAILY [facility] Stop: 12/31/17 08:59 Last Admin: 11/06/17 09:11 Dose: 81 mg Atorvastatin Calcium (Lipitor) 10 mg PO HS [facility]; Protocol Stop: 12/31/17 20:59 Last Admin: 11/05/17 20:25 Dose: 10 mg Citalopram Hydrobromide (Celexa) 20 mg PO DAILY [facility]; Protocol Stop: 12/31/17 08:59 Last Admin: 11/06/17 09:09 Dose: 20 mg Donepezil HCl (Aricept) 5 mg PO DAILY [facility] Stop: 12/31/17 08:59 Last Admin: 11/06/17 09:11 Dose: 5 mg Ferrous Sulfate (Iron) 325 mg PO BID [facility] Stop: 12/31/17 08:59 Last Admin: 11/06/17 09:10 Dose: 325 mg Finasteride (Proscar) 5 mg PO DAILY [facility]; Protocol Stop: 12/31/17 08:59 Last Admin: 11/06/17 09:10 Dose: 5 mg Folic Acid (Folate) 1 mg PO DAILY [facility] Stop: 12/31/17 08:59 Last Admin: 11/06/17 09:09 Dose: 1 mg Heparin Sodium (Porcine) (Heparin) 5,000 units HD PRN PRN PRN Reason: DIALYSIS PORTS Stop: 12/31/17 08:51 Piperacillin Sod/Tazobactam (Sod 2.25 gm/ Sodium Chloride) 50 mls @ 100 mls/hr IV Q8HR [facility] Stop: 12/31/17 04:59 Last Infusion: 11/06/17 09:11 Dose: Infused Norepinephrine Bitartrate 4 mg (/ Dextrose) 254 mls @ 0 mls/hr IV TITR PRN; Protocol PRN Reason: BP MAINTENANCE (PER PROTOCOL) Stop: 12/31/17 16:01 Last Titration: 11/03/17 16:31 Dose: 0 mcg/min, 0 mls/hr Lactobacillus Rhamnosus (Culturelle 15b) 1 each PO DAILY [facility] Stop: 01/01/18 13:59 Last Admin: 11/06/17 09:11 Dose: 1 each Levetiracetam (Keppra) 500 mg PO BID [facility] Stop: 12/31/17 08:59 Last Admin: 11/06/17 09:11 Dose: 500 mg Lorazepam (Ativan) 1 mg IVP Q6HR [facility]; Protocol PRN Reason: Seizure Stop: 12/31/17 08:51 Last Admin: 11/03/17 12:04 Dose: 1 mg Mirtazapine (Remeron) 15 mg PO HS [facility]; Protocol Stop: 12/31/17 20:59 Last Admin: 11/05/17 20:24 Dose: Not Given Miscellaneous (Vancomycin Iv Per Pharmacy) 1 ea PRN PRN PRN Reason: PROTOCOL Stop: 12/31/17 01:03 Miscellaneous (Probiotic Screen) 1 ea PRN PRN PRN Reason: PROTOCOL Stop: 01/01/18 12:28 Mupirocin (Bactroban Oint) 1 appl NS BID [facility] Stop: 11/07/17 09:01 Last Admin: 11/06/17 09:11 Dose: 1 appl Olanzapine (Zyprexa) 2.5 mg PO HS [facility]; Protocol Stop: 12/31/17 20:59 Last Admin: 11/05/17 20:24 Dose: Not Given Pantoprazole Sodium (Protonix) 40 mg PO DAILY [facility] Stop: 12/31/17 08:59 Last Admin: 11/06/17 09:09 Dose: 40 mg Polyethylene Glycol (Miralax) 17 gm PO DAILY [facility] Stop: 12/31/17 12:59 Last Admin: 11/06/17 09:10 Dose: 17 gm Tamsulosin HCl (Flomax) 0.4 mg PO BID [facility] Stop: 12/31/17 08:59 Last Admin: 11/06/17 09:11 Dose: 0.4 mg General: Alert, No acute distress HEENT: Atraumatic, PERRLA, Mucous membr. moist/pink Neck: Supple, +2 carotid pulse wo bruit Cardiovascular: Regular rate, Normal S1, Normal S2 Lungs: Normal air movement Abdomen: Bowel sounds, Soft Extremities: no Edema Neurological: Sensation intact Skin: no Rash Psych/Mental Status: Mood NL - Procedures Procedures: Procedures Procedure Code Date INSERTION OF INFUSION DEV INTO L SUBCLAV VEIN, PERC APPROACH 61Z793A 10/31/17 INSERTION OF INFUSION DEV INTO SUP VENA CAVA, PERC APPROACH [id number] 01/16/17 PERFORMANCE OF URINARY FILTRATION, <6 HRS/DAY [id number] 09/01/17 ULTRASONOGRAPHY OF LEFT SUBCLAVIAN VEIN, GUIDANCE [id number] 10/31/17 ULTRASONOGRAPHY OF SUPERIOR VENA CAVA, GUIDANCE [id number] 01/16/17 Assessment/Plan - Problem List Patient Problems: All Active Problems HTN (hypertension) (Acute) I10 Hx of diabetes mellitus (Acute) Z86.39 Parkinson disease (Acute) G20 Septicemia (Acute) A41.9 infected cath (Acute) - Assessment Assessment: ESRD on HD GPC septicemia 2/2 line infxn Shock: septic Constipation Ess Htn w/ CKD GERD Dyslipidemia MRSA nares - Plan Plan: Lab - Result Diagrams 11/02/17 04:10 11/02/17 04:10 Current Medications Acetaminophen (Tylenol) 650 mg PO Q4H PRN PRN Reason: MILD PAIN 1-3/ FEVER ABOVE 101 Stop: 12/31/17 00:37 Last Admin: 11/01/17 19:36 Dose: 650 mg Aspirin (Aspirin Chewable) 81 mg PO DAILY [facility] Stop: 12/31/17 08:59 Last Admin: 11/02/17 09:42 Dose: 81 mg Atorvastatin Calcium (Lipitor) 10 mg PO HS [facility]; Protocol Stop: 12/31/17 20:59 Last Admin: 11/01/17 20:58 Dose: 10 mg Citalopram Hydrobromide (Celexa) 20 mg PO DAILY [facility]; Protocol Stop: 12/31/17 08:59 Donepezil HCl (Aricept) 5 mg PO DAILY [facility] Stop: 12/31/17 08:59 Last Admin: 11/02/17 09:41 Dose: 5 mg Ferrous Sulfate (Iron) 325 mg PO BID [facility] Stop: 12/31/17 08:59 Last Admin: 11/02/17 09:43 Dose: 325 mg Finasteride (Proscar) 5 mg PO DAILY [facility]; Protocol Stop: 12/31/17 08:59 Last Admin: 11/02/17 09:47 Dose: 5 mg Folic Acid (Folate) 1 mg PO DAILY [facility] Stop: 12/31/17 08:59 Last Admin: 11/02/17 09:43 Dose: 1 mg Heparin Sodium (Porcine) (Heparin) 5,000 units HD PRN PRN PRN Reason: DIALYSIS PORTS Stop: 12/31/17 08:51 Piperacillin Sod/Tazobactam (Sod 2.25 gm/ Sodium Chloride) 50 mls @ 100 mls/hr IV Q8HR [facility] Stop: 12/31/17 04:59 Last Admin: 11/02/17 12:56 Dose: 100 mls/hr Norepinephrine Bitartrate 4 mg (/ Dextrose) 254 mls @ 0 mls/hr IV TITR PRN; Protocol PRN Reason: BP MAINTENANCE (PER PROTOCOL) Stop: 12/31/17 16:01 Last Titration: 11/02/17 06:18 Dose: 4 mcg/min, 15.24 mls/hr Lactobacillus Rhamnosus (Culturelle 15b) 1 each PO DAILY [facility] Stop: 01/01/18 13:59 Levetiracetam (Keppra) 500 mg PO BID [facility] Stop: 12/31/17 08:59 Last Admin: 11/02/17 09:41 Dose: 500 mg Lorazepam (Ativan) 1 mg IVP Q6HR PRN; Protocol PRN Reason: Seizure Stop: 12/31/17 08:51 Last Admin: 11/01/17 18:24 Dose: 1 mg Mirtazapine (Remeron) 15 mg PO HS [facility]; Protocol Stop: 12/31/17 20:59 Miscellaneous (Vancomycin Iv Per Pharmacy) 1 [facility] PRN PRN PRN Reason: PROTOCOL Stop: 12/31/17 01:03 Miscellaneous (Probiotic Screen) 1 [facility] PRN PRN PRN Reason: PROTOCOL Stop: 01/01/18 12:28 Mupirocin (Bactroban Oint) 1 appl NS BID [facility] Stop: 11/07/17 09:01 Olanzapine (Zyprexa) 2.5 mg PO HS [facility]; Protocol Stop: 12/31/17 20:59 Pantoprazole Sodium (Protonix) 40 mg PO DAILY [facility] Stop: 12/31/17 08:59 Last Admin: 11/02/17 09:41 Dose: 40 mg Polyethylene Glycol (Miralax) 17 gm PO DAILY [facility] Stop: 12/31/17 12:59 Last Admin: 11/02/17 09:41 Dose: 17 gm Tamsulosin HCl (Flomax) 0.4 mg PO BID [facility] Stop: 12/31/17 08:59 Last Admin: 11/02/17 09:41 Dose: 0.4 m Lab - Result Diagrams 11/04/17 06:30 11/05/17 05:00 BC grew GPC currently being dialyzed on Zosyn off Levo for HD in am Nutritional Asmnt/Malnutr-PDOC - Dietary Evaluation Malnutrition Findings (Please click <Entered> for more info): Nutritional Asmnt/Malnutrition Start: 11/02/17 16: 00 Text: Status: Complete Freq: Protocol: Document 11/02/17 16:02 LCDALLING (Rec: 11/02/17 16:14 [facility] [id number]) Nutritional Asmnt/Malnutrition Patient General Information Nutritional Screening High Risk Diagnosis sepsis, PNA Pertinent Medical Hx/Surgical Hx HTN, Dm, CVA, ESRD, dementia Subjective Information Pt seen resting in bed at time of visit. Pt is now on NPO for possible surgery. Per nurse note, pt had dialysis today. Pt is on Levophed noted . Current Diet Order/ Nutrition Support NPO Pertinent Medications lipitor, iron, folate, culturelle, remeron, levophed, protonix, piperacillin, miralax Pertinent Labs 11/02 BUN 34, Cr 5.0, glucose 112 11/01 Na 135, Cr 3.7, glucose 101 Nutritional Hx/Data Height 1.68 m Height (Calculated Centimeters) 167.6 Current Weight (lbs) 67.132 kg Weight (Calculated Kilograms) 67.1 Weight (Calculated Grams) 41250.7 [place] Body Weight 142 Body Mass Index (BMI) 23.8 Weight Status Approriate GI Symptoms GI Symptoms None Last BM no BM Difficult in: None Skin Integrity/Comment: opening above permacath site reddned to left arm Estimated Nutritional Goals BEE in Kcals: Using Current wt Calories/Kcals/Kg 27-32 Kcals Calculated 7844-4280 Protein: Using Current wt Protein g/k.2 Protein Calculated 80 Fluid: ml 1809-2144ml (1ml/kcal) Nutritional Problem 2. Problem Problem increased nutrition needs Etiology increased metabolic demand Signs/Symptoms: pt on dialysis and dx of sepsis, PNA 1. Problem Problem altered nutrition related labs Etiology hx of ESRD Signs/Symptoms: BUN 34, Cr 5.0, Intervention/Recommendation Comments 1. Monitor NPO status. Resume oral diet when medically appropriate. If PO intake <50% , will consider offer Nepro to increase nutrition itnake. 2. Monitor PO intake, wt, labs and skin integrity 3. F/U as hifh risk in 2-3 days, 11/04-11/05 Expected Outcomes/Goals Expected Outcomes/Goals 1. PO intake to meet at least 75% of nutritional needs. 2. Wt stability, skin to remain intact, labs to approach WNL.
--- NOTE | 2017-11-06 21:17 | Internal Medicine Prog Note ---
Internal Medicine Subjective - Subjective Service Date: 11/06/17 Patient is:: awake, verbal, in bed Per staff patient has:: tolerating meds Internal Medicine Objective - Results Result Diagrams: 11/04/17 06:30 11/05/17 05:00 Recent Labs: Laboratory Last Values WBC 4.3 Th/cmm (4.8-10.8) L 11/04/17 06:30 RBC 2.94 Mil/cmm (3.80-5.80) L 11/04/17 06:30 Hgb 9.4 gm/dL (12-16) L 11/04/17 06:30 Hct 27.3 % (41.0-60) L 11/04/17 06:30 MCV 93.0 fl (80-99) 11/04/17 06:30 MCH 31.9 pg (27.0-31.0) H 11/04/17 06:30 MCHC Differential 34.3 pg (28.0-36.0) 11/04/17 06:30 RDW 13.6 % (11.5-20.0) 11/04/17 06:30 Plt Count 151 Th/cmm (150-400) 11/04/17 06:30 MPV 7.6 fl 11/04/17 06:30 Add Manual Diff YES 11/01/17 06:04 Neutrophils % 67.9 % (40.0-80.0) 11/04/17 06:30 Band Neutrophils % 4 % (0-10) 11/01/17 06:04 Lymphocytes % 11.5 % (20.0-50.0) L 11/04/17 06:30 Monocytes % 12.4 % (2.0-10.0) H 11/04/17 06:30 Eosinophils % 7.0 % (0.0-5.0) H 11/04/17 06:30 Basophils % 1.2 % (0.0-2.0) 11/04/17 06:30 Neutrophils (Manual) 84 % (40-80) H 11/01/17 06:04 Lymphocytes 6 % (20-50) L 11/01/17 06:04 Monocytes 6 % (2-10) 11/01/17 06:04 Eosinophils 0 % (0-5) 11/01/17 06:04 Basophils 0 % (0-3) 11/01/17 06:04 PT 11.0 SECONDS (9.5-11.5) 10/31/17 21:40 INR 1.06 (0.5-1.4) 10/31/17 21:40 Sodium 139 mEq/L (136-145) 11/05/17 05:00 Potassium 3.9 mEq/L (3.5-5.1) 11/05/17 05:00 Chloride 106 mEq/L (98-107) 11/05/17 05:00 Carbon Dioxide 23.3 mEq/L (21.0-31.0) 11/05/17 05:00 Anion Gap 13.6 (7.0-16.0) 11/05/17 05:00 BUN 28 mg/dL (7-25) H 11/05/17 05:00 Creatinine 5.5 mg/dL (0.7-1.3) H* 11/05/17 05:00 Est GFR ( Amer) TNP 11/05/17 05:00 Est GFR (Non-Af Amer) TNP 11/05/17 05:00 BUN/Creatinine Ratio 5.1 11/05/17 05:00 Glucose 86 mg/dL (70-105) 11/05/17 05:00 Whole Bld Lactic Acid 1.36 mmol/L (0.60-1.99) 11/01/17 17:50 Calcium 9.4 mg/dL (8.6-10.3) 11/05/17 05:00 Magnesium 1.9 mg/dL (1.9-2.7) 11/05/17 05:00 Total Bilirubin 0.6 mg/dL (0.3-1.0) 10/31/17 21:40 AST 38 U/L (13-39) 10/31/17 21:40 ALT 31 U/L (7-52) 10/31/17 21:40 Alkaline Phosphatase 109 U/L (34-104) H 10/31/17 21:40 Troponin I 0.04 ng/mL (0.01-0.05) 10/31/17 21:40 B-Natriuretic Peptide 959.0 pg/mL (5.0-100.0) H 11/03/17 04:05 Total Protein 7.1 gm/dL (6.0-8.3) 10/31/17 21:40 Albumin 3.4 gm/dL (4.2-5.5) L 10/31/17 21:40 Globulin 3.7 gm/dL 10/31/17 21:40 Albumin/Globulin Ratio 0.9 (1.0-1.8) L 10/31/17 21:40 Triglycerides 78 mg/dL (<150) 11/01/17 06:04 Cholesterol 89 mg/dL (<200) 11/01/17 06:04 LDL Cholesterol Direct 39 mg/dL (75-193) L 11/01/17 06:04 HDL Cholesterol 33 mg/dL (23-92) 11/01/17 06:04 TSH 0.55 uIU/ml (0.34-5.60) 11/01/17 06:04 Random Vancomycin 26.2 ug/mL (5.0-40.0) 11/05/17 05:00 - Physical Exam Vitals and I&O: Vital Signs Temp 97.6 F 11/06/17 16:00 Pulse 56 11/06/17 19:00 Resp 18 11/06/17 19:00 BP 128/61 11/06/17 18:00 Pulse Ox 99 11/06/17 19:00 Intake & Output 11/06/17 11/06/17 11/07/17 06:59 18:59 06:59 Intake Total 750 500 Output Total 1 Balance 749 500 Weight (lbs) 154 lb 154 lb Intake: Intake, IV Amount 50 100 Piperacillin Sodium/ 50 100 Tazobact 2.25 gm In Sodium Chloride 0.9% 50 ml @ 100 mls/hr IV Q8HR [facility] Rx#:[id number] Oral 700 400 Output: Urine/Stool Mix 1 Other: # Voids 2 1 # Bowel Movements 1 1 Stool Characteristics Soft Brown Green Weight Source Bedscale Bedscale Active Medications: Current Medications Acetaminophen (Tylenol) 650 mg PO Q4H PRN PRN Reason: MILD PAIN 1-3/ FEVER ABOVE 101 Stop: 12/31/17 00:37 Last Admin: 11/03/17 04:49 Dose: 650 mg Aspirin (Aspirin Chewable) 81 mg PO DAILY [facility] Stop: 12/31/17 08:59 Last Admin: 11/06/17 09:11 Dose: 81 mg Atorvastatin Calcium (Lipitor) 10 mg PO HS [facility]; Protocol Stop: 12/31/17 20:59 Last Admin: 11/05/17 20:25 Dose: 10 mg Citalopram Hydrobromide (Celexa) 20 mg PO DAILY [facility]; Protocol Stop: 12/31/17 08:59 Last Admin: 11/06/17 09:09 Dose: 20 mg Donepezil HCl (Aricept) 5 mg PO DAILY [facility] Stop: 12/31/17 08:59 Last Admin: 11/06/17 09:11 Dose: 5 mg Ferrous Sulfate (Iron) 325 mg PO BID [facility] Stop: 12/31/17 08:59 Last Admin: 11/06/17 17:35 Dose: 325 mg Finasteride (Proscar) 5 mg PO DAILY [facility]; Protocol Stop: 12/31/17 08:59 Last Admin: 11/06/17 09:10 Dose: 5 mg Folic Acid (Folate) 1 mg PO DAILY [facility] Stop: 12/31/17 08:59 Last Admin: 11/06/17 09:09 Dose: 1 mg Heparin Sodium (Porcine) (Heparin) 5,000 units HD PRN PRN PRN Reason: DIALYSIS PORTS Stop: 12/31/17 08:51 Piperacillin Sod/Tazobactam (Sod 2.25 gm/ Sodium Chloride) 50 mls @ 100 mls/hr IV Q8HR [facility] Stop: 12/31/17 04:59 Last Infusion: 11/06/17 17:23 Dose: Infused Norepinephrine Bitartrate 4 mg (/ Dextrose) 254 mls @ 0 mls/hr IV TITR PRN; Protocol PRN Reason: BP MAINTENANCE (PER PROTOCOL) Stop: 12/31/17 16:01 Last Titration: 11/03/17 16:31 Dose: 0 mcg/min, 0 mls/hr Lactobacillus Rhamnosus (Culturelle 15b) 1 each PO DAILY [facility] Stop: 01/01/18 13:59 Last Admin: 11/06/17 09:11 Dose: 1 each Levetiracetam (Keppra) 500 mg PO BID [facility] Stop: 12/31/17 08:59 Last Admin: 11/06/17 17:35 Dose: 500 mg Lorazepam (Ativan) 1 mg IVP Q6HR [facility]; Protocol PRN Reason: Seizure Stop: 12/31/17 08:51 Last Admin: 09/11/18 12:04 Dose: 1 mg Mirtazapine (Remeron) 15 mg PO HS [facility]; Protocol Stop: 12/31/17 20:59 Last Admin: 11/05/17 20:24 Dose: Not Given Miscellaneous (Vancomycin Iv Per Pharmacy) 1 ea PRN PRN PRN Reason: PROTOCOL Stop: 12/31/17 01:03 Miscellaneous (Probiotic Screen) 1 [facility] PRN PRN PRN Reason: PROTOCOL Stop: 01/01/18 12:28 Mupirocin (Bactroban Oint) 1 appl NS BID [facility] Stop: 11/07/17 09:01 Last Admin: 11/06/17 09:11 Dose: 1 appl Olanzapine (Zyprexa) 2.5 mg PO HS [facility]; Protocol Stop: 12/31/17 20:59 Last Admin: 11/05/17 20:24 Dose: Not Given Pantoprazole Sodium (Protonix) 40 mg PO DAILY [facility] Stop: 12/31/17 08:59 Last Admin: 11/06/17 09:09 Dose: 40 mg Polyethylene Glycol (Miralax) 17 gm PO DAILY [facility] Stop: 12/31/17 12:59 Last Admin: 11/06/17 09:10 Dose: 17 gm Tamsulosin HCl (Flomax) 0.4 mg PO BID [facility] Stop: 12/31/17 08:59 Last Admin: 11/06/17 17:35 Dose: 0.4 mg General: weak HEENT: NC/AT, PERRLA Neck: Supple Lungs: CTAB Abdomen: soft, non-tender, non-distended Extremities: excoriation Neurological: unable to follow command, bedbound - Procedures Procedures: Procedures Procedure Code Date INSERTION OF INFUSION DEV INTO L SUBCLAV VEIN, PERC APPROACH [id number] 10/31/17 INSERTION OF INFUSION DEV INTO SUP VENA CAVA, PERC APPROACH [id number] 01/16/17 PERFORMANCE OF URINARY FILTRATION, <6 HRS/DAY [id number] 09/01/17 ULTRASONOGRAPHY OF LEFT SUBCLAVIAN VEIN, GUIDANCE [id number] 10/31/17 ULTRASONOGRAPHY OF SUPERIOR VENA CAVA, GUIDANCE [id number] 01/16/17 Internal Medicine Assmt/Plan - Assessment Assessment: sepsis pna ckd stage 5 on hd dm2 dnr status - Plan Plan: continue ivabx as per id continue hd as per renal continue current plan of care Nutritional Asmnt/Malnutr-PDOC - Dietary Evaluation Malnutrition Findings (Please click <Entered> for more info): Nutritional Asmnt/Malnutrition Start: 11/02/17 16: 00 Text: Status: Complete Freq: Protocol: Document 11/02/17 16:02 ANNE MARIEEvangelina (Rec: 11/02/17 16:14 [email or web address]) Nutritional Asmnt/Malnutrition Patient General Information Nutritional Screening High Risk Diagnosis sepsis, PNA Pertinent Medical Hx/Surgical Hx HTN, Dm, CVA, ESRD, dementia Subjective Information Pt seen resting in bed at time of visit. Pt is now on NPO for possible surgery. Per nurse note, pt had dialysis today. Pt is on Levophed noted . Current Diet Order/ Nutrition Support NPO Pertinent Medications lipitor, iron, folate, culturelle, remeron, levophed, protonix, piperacillin, miralax Pertinent Labs 11/02 BUN 34, Cr 5.0, glucose 112 11/01 Na 135, Cr 3.7, glucose 101 Nutritional Hx/Data Height 5 ft 6 in Height (Calculated Centimeters) 167.6 Current Weight (lbs) 148 lb Weight (Calculated Kilograms) 67.1 Weight (Calculated Grams) 42550.7 [place] Body Weight 142 Body Mass Index (BMI) 23.8 Weight Status Approriate GI Symptoms GI Symptoms None Last BM no BM Difficult in: None Skin Integrity/Comment: opening above permacath site reddned to left arm Estimated Nutritional Goals BEE in Kcals: Using Current wt Calories/Kcals/Kg 27-32 Kcals Calculated 3790-0999 Protein: Using Current wt Protein g/k.2 Protein Calculated 80 Fluid: ml 1809-2144ml (1ml/kcal) Nutritional Problem 2. Problem Problem increased nutrition needs Etiology increased metabolic demand Signs/Symptoms: pt on dialysis and dx of sepsis, PNA 1. Problem Problem altered nutrition related labs Etiology hx of ESRD Signs/Symptoms: BUN 34, Cr 5.0, Intervention/Recommendation Comments 1. Monitor NPO status. Resume oral diet when medically appropriate. If PO intake <50% , will consider offer Nepro to increase nutrition itnake. 2. Monitor PO intake, wt, labs and skin integrity 3. F/U as hifh risk in 2-3 days, 11/04-11/05 Expected Outcomes/Goals Expected Outcomes/Goals 1. PO intake to meet at least 75% of nutritional needs. 2. Wt stability, skin to remain intact, labs to approach WNL.
[2017-11-06] MEDS: Atorvastatin Calcium 10 MG TAB PO SCH (21:35)
--- NOTE | 2017-11-07 14:57 | General Progress Note ---
Subjective - Review of Systems Service Date: 11/07/17 Subjective: more interactive, comfortable Objective - Results Result Diagrams: 11/04/17 06:30 11/05/17 05:00 Recent Labs: Laboratory Last Values WBC 4.3 Th/cmm (4.8-10.8) L 11/04/17 06:30 RBC 2.94 Mil/cmm (3.80-5.80) L 11/04/17 06:30 Hgb 9.4 gm/dL (12-16) L 11/04/17 06:30 Hct 27.3 % (41.0-60) L 11/04/17 06:30 MCV 93.0 fl (80-99) 11/04/17 06:30 MCH 31.9 pg (27.0-31.0) H 11/04/17 06:30 MCHC Differential 34.3 pg (28.0-36.0) 11/04/17 06:30 RDW 13.6 % (11.5-20.0) 11/04/17 06:30 Plt Count 151 Th/cmm (150-400) 11/04/17 06:30 MPV 7.6 fl 11/04/17 06:30 Add Manual Diff YES 11/01/17 06:04 Neutrophils % 67.9 % (40.0-80.0) 11/04/17 06:30 Band Neutrophils % 4 % (0-10) 11/01/17 06:04 Lymphocytes % 11.5 % (20.0-50.0) L 11/04/17 06:30 Monocytes % 12.4 % (2.0-10.0) H 11/04/17 06:30 Eosinophils % 7.0 % (0.0-5.0) H 11/04/17 06:30 Basophils % 1.2 % (0.0-2.0) 11/04/17 06:30 Neutrophils (Manual) 84 % (40-80) H 11/01/17 06:04 Lymphocytes 6 % (20-50) L 11/01/17 06:04 Monocytes 6 % (2-10) 11/01/17 06:04 Eosinophils 0 % (0-5) 11/01/17 06:04 Basophils 0 % (0-3) 11/01/17 06:04 PT 11.0 SECONDS (9.5-11.5) 10/31/17 21:40 INR 1.06 (0.5-1.4) 10/31/17 21:40 Sodium 139 mEq/L (136-145) 11/05/17 05:00 Potassium 3.9 mEq/L (3.5-5.1) 11/05/17 05:00 Chloride 106 mEq/L (98-107) 11/05/17 05:00 Carbon Dioxide 23.3 mEq/L (21.0-31.0) 11/05/17 05:00 Anion Gap 13.6 (7.0-16.0) 11/05/17 05:00 BUN 28 mg/dL (7-25) H 11/05/17 05:00 Creatinine 5.5 mg/dL (0.7-1.3) H* 11/05/17 05:00 Est GFR ( Amer) TNP 11/05/17 05:00 Est GFR (Non-Af Amer) TNP 11/05/17 05:00 BUN/Creatinine Ratio 5.1 11/05/17 05:00 Glucose 86 mg/dL (70-105) 11/05/17 05:00 Whole Bld Lactic Acid 1.36 mmol/L (0.60-1.99) 11/01/17 17:50 Calcium 9.4 mg/dL (8.6-10.3) 11/05/17 05:00 Magnesium 1.9 mg/dL (1.9-2.7) 11/05/17 05:00 Total Bilirubin 0.6 mg/dL (0.3-1.0) 10/31/17 21:40 AST 38 U/L (13-39) 10/31/17 21:40 ALT 31 U/L (7-52) 10/31/17 21:40 Alkaline Phosphatase 109 U/L (34-104) H 10/31/17 21:40 Troponin I 0.04 ng/mL (0.01-0.05) 10/31/17 21:40 B-Natriuretic Peptide 959.0 pg/mL (5.0-100.0) H 11/03/17 04:05 Total Protein 7.1 gm/dL (6.0-8.3) 10/31/17 21:40 Albumin 3.4 gm/dL (4.2-5.5) L 10/31/17 21:40 Globulin 3.7 gm/dL 10/31/17 21:40 Albumin/Globulin Ratio 0.9 (1.0-1.8) L 10/31/17 21:40 Triglycerides 78 mg/dL (<150) 11/01/17 06:04 Cholesterol 89 mg/dL (<200) 11/01/17 06:04 LDL Cholesterol Direct 39 mg/dL (75-193) L 11/01/17 06:04 HDL Cholesterol 33 mg/dL (23-92) 11/01/17 06:04 TSH 0.55 uIU/ml (0.34-5.60) 11/01/17 06:04 Random Vancomycin 20.7 ug/mL (5.0-40.0) 11/07/17 05:30 - Physical Exam Vitals and I&O: Vital Signs Temp 98.2 F 11/07/17 12:00 Pulse 59 11/07/17 14:00 Resp 18 11/07/17 14:00 BP 116/79 11/07/17 14:00 Pulse Ox 97 11/07/17 14:00 Intake & Output 11/06/17 11/07/17 11/07/17 18:59 06:59 18:59 Intake Total 500 340 Balance 500 340 Weight (lbs) 69.853 kg 70.715 kg Intake: Intake, IV Amount 100 100 Piperacillin Sodium/ 100 100 Tazobact 2.25 gm In Sodium Chloride 0.9% 50 ml @ 100 mls/hr IV Q8HR [facility] Rx#:[id number] Oral 400 240 Other: # Voids 1 2 # Bowel Movements 1 1 Stool Characteristics Soft Soft Brown Brown Green Green Weight Source Bedscale Bedscale Active Medications: Current Medications Acetaminophen (Tylenol) 650 mg PO Q4H PRN PRN Reason: MILD PAIN 1-3/ FEVER ABOVE 101 Stop: 12/31/17 00:37 Last Admin: 11/03/17 04:49 Dose: 650 mg Aspirin (Aspirin Chewable) 81 mg PO DAILY [facility] Stop: 12/31/17 08:59 Last Admin: 11/06/17 09:11 Dose: 81 mg Atorvastatin Calcium (Lipitor) 10 mg PO HS [facility]; Protocol Stop: 12/31/17 20:59 Last Admin: 11/06/17 21:35 Dose: 10 mg Citalopram Hydrobromide (Celexa) 20 mg PO DAILY [facility]; Protocol Stop: 12/31/17 08:59 Last Admin: 11/06/17 09:09 Dose: 20 mg Donepezil HCl (Aricept) 5 mg PO DAILY [facility] Stop: 12/31/17 08:59 Last Admin: 11/06/17 09:11 Dose: 5 mg Ferrous Sulfate (Iron) 325 mg PO BID [facility] Stop: 12/31/17 08:59 Last Admin: 11/06/17 17:35 Dose: 325 mg Finasteride (Proscar) 5 mg PO DAILY [facility]; Protocol Stop: 12/31/17 08:59 Last Admin: 11/06/17 09:10 Dose: 5 mg Folic Acid (Folate) 1 mg PO DAILY [facility] Stop: 12/31/17 08:59 Last Admin: 11/06/17 09:09 Dose: 1 mg Heparin Sodium (Porcine) (Heparin) 5,000 units HD PRN PRN PRN Reason: DIALYSIS PORTS Stop: 12/31/17 08:51 Piperacillin Sod/Tazobactam (Sod 2.25 gm/ Sodium Chloride) 50 mls @ 100 mls/hr IV Q8HR [facility] Stop: 12/31/17 04:59 Last Infusion: 11/07/17 05:10 Dose: Infused Norepinephrine Bitartrate 4 mg (/ Dextrose) 254 mls @ 0 mls/hr IV TITR PRN; Protocol PRN Reason: BP MAINTENANCE (PER PROTOCOL) Stop: 12/31/17 16:01 Last Titration: 11/03/17 16:31 Dose: 0 mcg/min, 0 mls/hr Vancomycin HCl 1 gm/ Sodium (Chloride) 250 mls @ 165 mls/hr IV ONCE ONE Stop: 11/07/17 16:30 Lactobacillus Rhamnosus (Culturelle 15b) 1 each PO DAILY [facility] Stop: 01/01/18 13:59 Last Admin: 11/06/17 09:11 Dose: 1 each Levetiracetam (Keppra) 500 mg PO BID [facility] Stop: 12/31/17 08:59 Last Admin: 11/06/17 17:35 Dose: 500 mg Lorazepam (Ativan) 1 mg IVP Q6HR PRN; Protocol PRN Reason: Seizure Stop: 12/31/17 08:51 Last Admin: 11/03/17 12:04 Dose: 1 mg Mirtazapine (Remeron) 15 mg PO HS [facility]; Protocol Stop: 12/31/17 20:59 Last Admin: 11/06/17 21:37 Dose: 15 mg Miscellaneous (Vancomycin Iv Per Pharmacy) 1 [facility] PRN PRN PRN Reason: PROTOCOL Stop: 12/31/17 01:03 Miscellaneous (Probiotic Screen) 1 [facility] PRN PRN PRN Reason: PROTOCOL Stop: 01/01/18 12:28 Olanzapine (Zyprexa) 2.5 mg PO HS [facility]; Protocol Stop: 12/31/17 20:59 Last Admin: 11/06/17 21:39 Dose: 2.5 mg Pantoprazole Sodium (Protonix) 40 mg PO DAILY [facility] Stop: 12/31/17 08:59 Last Admin: 11/06/17 09:09 Dose: 40 mg Polyethylene Glycol (Miralax) 17 gm PO DAILY [facility] Stop: 12/31/17 12:59 Last Admin: 11/06/17 09:10 Dose: 17 gm Tamsulosin HCl (Flomax) 0.4 mg PO BID [facility] Stop: 12/31/17 08:59 Last Admin: 11/06/17 17:35 Dose: 0.4 mg General: Alert, No acute distress HEENT: Atraumatic, PERRLA, Mucous membr. moist/pink Neck: Supple, +2 carotid pulse wo bruit Cardiovascular: Regular rate, Normal S1, Normal S2 Lungs: Normal air movement Abdomen: Bowel sounds, Soft Extremities: no Edema Neurological: Sensation intact Skin: no Rash Psych/Mental Status: Mood NL - Procedures Procedures: Procedures Procedure Code Date INSERTION OF INFUSION DEV INTO L SUBCLAV VEIN, PERC APPROACH 70X925A 10/31/17 INSERTION OF INFUSION DEV INTO SUP VENA CAVA, PERC APPROACH [id number] 01/16/17 PERFORMANCE OF URINARY FILTRATION, <6 HRS/DAY [id number] 09/01/17 ULTRASONOGRAPHY OF LEFT SUBCLAVIAN VEIN, GUIDANCE [id number] 10/31/17 ULTRASONOGRAPHY OF SUPERIOR VENA CAVA, GUIDANCE [id number] 01/16/17 Assessment/Plan - Problem List Patient Problems: All Active Problems HTN (hypertension) (Acute) I10 Hx of diabetes mellitus (Acute) Z86.39 Parkinson disease (Acute) G20 Septicemia (Acute) A41.9 infected cath (Acute) - Assessment Assessment: ESRD on HD GPC septicemia 2/2 line infxn Shock: septic Constipation Ess Htn w/ CKD GERD Dyslipidemia MRSA nares - Plan Plan: Lab - Result Diagrams 11/02/17 04:10 11/02/17 04:10 Current Medications Acetaminophen (Tylenol) 650 mg PO Q4H PRN PRN Reason: MILD PAIN 1-3/ FEVER ABOVE 101 Stop: 12/31/17 00:37 Last Admin: 11/01/17 19:36 Dose: 650 mg Aspirin (Aspirin Chewable) 81 mg PO DAILY [facility] Stop: 12/31/17 08:59 Last Admin: 11/02/17 09:42 Dose: 81 mg Atorvastatin Calcium (Lipitor) 10 mg PO HS [facility]; Protocol Stop: 12/31/17 20:59 Last Admin: 11/01/17 20:58 Dose: 10 mg Citalopram Hydrobromide (Celexa) 20 mg PO DAILY [facility]; Protocol Stop: 12/31/17 08:59 Donepezil HCl (Aricept) 5 mg PO DAILY [facility] Stop: 12/31/17 08:59 Last Admin: 11/02/17 09:41 Dose: 5 mg Ferrous Sulfate (Iron) 325 mg PO BID [facility] Stop: 12/31/17 08:59 Last Admin: 11/02/17 09:43 Dose: 325 mg Finasteride (Proscar) 5 mg PO DAILY [facility]; Protocol Stop: 12/31/17 08:59 Last Admin: 11/02/17 09:47 Dose: 5 mg Folic Acid (Folate) 1 mg PO DAILY [facility] Stop: 12/31/17 08:59 Last Admin: 11/02/17 09:43 Dose: 1 mg Heparin Sodium (Porcine) (Heparin) 5,000 units HD PRN PRN PRN Reason: DIALYSIS PORTS Stop: 12/31/17 08:51 Piperacillin Sod/Tazobactam (Sod 2.25 gm/ Sodium Chloride) 50 mls @ 100 mls/hr IV Q8HR [facility] Stop: 12/31/17 04:59 Last Admin: 11/02/17 12:56 Dose: 100 mls/hr Norepinephrine Bitartrate 4 mg (/ Dextrose) 254 mls @ 0 mls/hr IV TITR PRN; Protocol PRN Reason: BP MAINTENANCE (PER PROTOCOL) Stop: 12/31/17 16:01 Last Titration: 11/02/17 06:18 Dose: 4 mcg/min, 15.24 mls/hr Lactobacillus Rhamnosus (Culturelle 15b) 1 each PO DAILY [facility] Stop: 01/01/18 13:59 Levetiracetam (Keppra) 500 mg PO BID [facility] Stop: 12/31/17 08:59 Last Admin: 11/02/17 09:41 Dose: 500 mg Lorazepam (Ativan) 1 mg IVP Q6HR PRN; Protocol PRN Reason: Seizure Stop: 12/31/17 08:51 Last Admin: 11/01/17 18:24 Dose: 1 mg Mirtazapine (Remeron) 15 mg PO HS [facility]; Protocol Stop: 12/31/17 20:59 Miscellaneous (Vancomycin Iv Per Pharmacy) 1 [facility] PRN PRN PRN Reason: PROTOCOL Stop: 12/31/17 01:03 Miscellaneous (Probiotic Screen) 1 [facility] PRN PRN PRN Reason: PROTOCOL Stop: 01/01/18 12:28 Mupirocin (Bactroban Oint) 1 appl NS BID [facility] Stop: 11/07/17 09:01 Olanzapine (Zyprexa) 2.5 mg PO HS [facility]; Protocol Stop: 12/31/17 20:59 Pantoprazole Sodium (Protonix) 40 mg PO DAILY [facility] Stop: 12/31/17 08:59 Last Admin: 11/02/17 09:41 Dose: 40 mg Polyethylene Glycol (Miralax) 17 gm PO DAILY [facility] Stop: 12/31/17 12:59 Last Admin: 11/02/17 09:41 Dose: 17 gm Tamsulosin HCl (Flomax) 0.4 mg PO BID [facility] Stop: 12/31/17 08:59 Last Admin: 11/02/17 09:41 Dose: 0.4 m Lab - Result Diagrams 11/04/17 06:30 11/05/17 05:00 BC grew GPC currently being dialyzed on Zosyn off Levo f/u electrolytes, cbc Nutritional Asmnt/Malnutr-PDOC - Dietary Evaluation Malnutrition Findings (Please click <Entered> for more info): Nutritional Asmnt/Malnutrition Start: 11/02/17 16: 00 Text: Status: Complete Freq: Protocol: Document 11/02/17 16:02 [facility] (Rec: 11/02/17 16:14 [facility] [id number]) Nutritional Asmnt/Malnutrition Patient General Information Nutritional Screening High Risk Diagnosis sepsis, PNA Pertinent Medical Hx/Surgical Hx HTN, Dm, CVA, ESRD, dementia Subjective Information Pt seen resting in bed at time of visit. Pt is now on NPO for possible surgery. Per nurse note, pt had dialysis today. Pt is on Levophed noted . Current Diet Order/ Nutrition Support NPO Pertinent Medications lipitor, iron, folate, culturelle, remeron, levophed, protonix, piperacillin, miralax Pertinent Labs 11/02 BUN 34, Cr 5.0, glucose 112 11/01 Na 135, Cr 3.7, glucose 101 Nutritional Hx/Data Height 1.68 m Height (Calculated Centimeters) 167.6 Current Weight (lbs) 67.132 kg Weight (Calculated Kilograms) 67.1 Weight (Calculated Grams) 11837.7 [place] Body Weight 142 Body Mass Index (BMI) 23.8 Weight Status Approriate GI Symptoms GI Symptoms None Last BM no BM Difficult in: None Skin Integrity/Comment: opening above permacath site reddned to left arm Estimated Nutritional Goals BEE in Kcals: Using Current wt Calories/Kcals/Kg 27-32 Kcals Calculated 3006-0561 Protein: Using Current wt Protein g/k.2 Protein Calculated 80 Fluid: ml 1809-2144ml (1ml/kcal) Nutritional Problem 2. Problem Problem increased nutrition needs Etiology increased metabolic demand Signs/Symptoms: pt on dialysis and dx of sepsis, PNA 1. Problem Problem altered nutrition related labs Etiology hx of ESRD Signs/Symptoms: BUN 34, Cr 5.0, Intervention/Recommendation Comments 1. Monitor NPO status. Resume oral diet when medically appropriate. If PO intake <50% , will consider offer Nepro to increase nutrition itnake. 2. Monitor PO intake, wt, labs and skin integrity 3. F/U as hifh risk in 2-3 days, 11/04-11/05 Expected Outcomes/Goals Expected Outcomes/Goals 1. PO intake to meet at least 75% of nutritional needs. 2. Wt stability, skin to remain intact, labs to approach WNL.
[2017-11-07] MEDS: Aspirin 81mg Chewable Tab PO SCH (16:53)
[2017-11-07] MEDS: Ferrous Sulfate 325 MG TAB PO SCH ×2 (16:54→17:28)
[2017-11-07] MEDS: Pantoprazole 40 mg EC Tab PO SCH (16:55)
[2017-11-07] MEDS: Lactobacillus Rhamnosus GG 15 Billion CFU CAP.SPRINK PO SCH (16:55)
[2017-11-07] MEDS: POLYETHYLENE GLYCOL 3350 17 GM PACK PO SCH (16:56)
--- NOTE | 2017-11-07 18:46 | Infectious Disease Prog Note ---
Infectious Disease Subjective - Review of Systems Service Date: 11/07/17 Subjective: There is no new change. 3/3 Blood cultures grew MRSA. Infectious Disease Objective - Results Result Diagrams: 11/04/17 06:30 11/05/17 05:00 Recent Labs: Laboratory Last Values WBC 4.3 Th/cmm (4.8-10.8) L 11/04/17 06:30 RBC 2.94 Mil/cmm (3.80-5.80) L 11/04/17 06:30 Hgb 9.4 gm/dL (12-16) L 11/04/17 06:30 Hct 27.3 % (41.0-60) L 11/04/17 06:30 MCV 93.0 fl (80-99) 11/04/17 06:30 MCH 31.9 pg (27.0-31.0) H 11/04/17 06:30 MCHC Differential 34.3 pg (28.0-36.0) 11/04/17 06:30 RDW 13.6 % (11.5-20.0) 11/04/17 06:30 Plt Count 151 Th/cmm (150-400) 11/04/17 06:30 MPV 7.6 fl 11/04/17 06:30 Add Manual Diff YES 11/01/17 06:04 Neutrophils % 67.9 % (40.0-80.0) 11/04/17 06:30 Band Neutrophils % 4 % (0-10) 11/01/17 06:04 Lymphocytes % 11.5 % (20.0-50.0) L 11/04/17 06:30 Monocytes % 12.4 % (2.0-10.0) H 11/04/17 06:30 Eosinophils % 7.0 % (0.0-5.0) H 11/04/17 06:30 Basophils % 1.2 % (0.0-2.0) 11/04/17 06:30 Neutrophils (Manual) 84 % (40-80) H 11/01/17 06:04 Lymphocytes 6 % (20-50) L 11/01/17 06:04 Monocytes 6 % (2-10) 11/01/17 06:04 Eosinophils 0 % (0-5) 11/01/17 06:04 Basophils 0 % (0-3) 11/01/17 06:04 PT 11.0 SECONDS (9.5-11.5) 10/31/17 21:40 INR 1.06 (0.5-1.4) 10/31/17 21:40 Sodium 139 mEq/L (136-145) 11/05/17 05:00 Potassium 3.9 mEq/L (3.5-5.1) 11/05/17 05:00 Chloride 106 mEq/L (98-107) 11/05/17 05:00 Carbon Dioxide 23.3 mEq/L (21.0-31.0) 11/05/17 05:00 Anion Gap 13.6 (7.0-16.0) 11/05/17 05:00 BUN 28 mg/dL (7-25) H 11/05/17 05:00 Creatinine 5.5 mg/dL (0.7-1.3) H* 11/05/17 05:00 Est GFR ( Amer) TNP 11/05/17 05:00 Est GFR (Non-Af Amer) TNP 11/05/17 05:00 BUN/Creatinine Ratio 5.1 11/05/17 05:00 Glucose 86 mg/dL (70-105) 11/05/17 05:00 Whole Bld Lactic Acid 1.36 mmol/L (0.60-1.99) 11/01/17 17:50 Calcium 9.4 mg/dL (8.6-10.3) 11/05/17 05:00 Magnesium 1.9 mg/dL (1.9-2.7) 11/05/17 05:00 Total Bilirubin 0.6 mg/dL (0.3-1.0) 10/31/17 21:40 AST 38 U/L (13-39) 10/31/17 21:40 ALT 31 U/L (7-52) 10/31/17 21:40 Alkaline Phosphatase 109 U/L (34-104) H 10/31/17 21:40 Troponin I 0.04 ng/mL (0.01-0.05) 10/31/17 21:40 B-Natriuretic Peptide 959.0 pg/mL (5.0-100.0) H 11/03/17 04:05 Total Protein 7.1 gm/dL (6.0-8.3) 10/31/17 21:40 Albumin 3.4 gm/dL (4.2-5.5) L 10/31/17 21:40 Globulin 3.7 gm/dL 10/31/17 21:40 Albumin/Globulin Ratio 0.9 (1.0-1.8) L 10/31/17 21:40 Triglycerides 78 mg/dL (<150) 11/01/17 06:04 Cholesterol 89 mg/dL (<200) 11/01/17 06:04 LDL Cholesterol Direct 39 mg/dL (75-193) L 11/01/17 06:04 HDL Cholesterol 33 mg/dL (23-92) 11/01/17 06:04 TSH 0.55 uIU/ml (0.34-5.60) 11/01/17 06:04 Random Vancomycin 20.7 ug/mL (5.0-40.0) 11/07/17 05:30 - Physical Exam Vitals and I&O: Vital Signs Temp 98.6 F 11/07/17 16:00 Pulse 79 11/07/17 18:00 Resp 20 11/07/17 18:00 BP 118/78 11/07/17 18:00 Pulse Ox 99 11/07/17 18:00 Intake & Output 11/06/17 11/07/17 11/07/17 18:59 06:59 18:59 Intake Total 500 340 400 Output Total 1000 Balance 500 340 -600 Weight (lbs) 69.853 kg 70.715 kg 70.307 kg Intake: Intake, IV Amount 100 100 50 Piperacillin Sodium/ 100 100 50 Tazobact 2.25 gm In Sodium Chloride 0.9% 50 ml @ 100 mls/hr IV Q8HR [facility] Rx#:[id number] Oral 400 240 350 Output: Hemodialysis 1000 Other: # Voids 1 2 # Bowel Movements 1 1 0 Stool Characteristics Soft Soft Brown Brown Green Green Weight Source Bedscale Bedscale Patient stated Active Medications: Current Medications Acetaminophen (Tylenol) 650 mg PO Q4H PRN PRN Reason: MILD PAIN 1-3/ FEVER ABOVE 101 Stop: 12/31/17 00:37 Last Admin: 11/03/17 04:49 Dose: 650 mg Aspirin (Aspirin Chewable) 81 mg PO DAILY [facility] Stop: 12/31/17 08:59 Last Admin: 11/07/17 16:53 Dose: Not Given Atorvastatin Calcium (Lipitor) 10 mg PO HS [facility]; Protocol Stop: 12/31/17 20:59 Last Admin: 11/06/17 21:35 Dose: 10 mg Citalopram Hydrobromide (Celexa) 20 mg PO DAILY [facility]; Protocol Stop: 12/31/17 08:59 Last Admin: 11/07/17 16:53 Dose: Not Given Donepezil HCl (Aricept) 5 mg PO DAILY [facility] Stop: 12/31/17 08:59 Last Admin: 11/07/17 18:30 Dose: Not Given Ferrous Sulfate (Iron) 325 mg PO BID [facility] Stop: 12/31/17 08:59 Last Admin: 11/07/17 17:28 Dose: 325 mg Finasteride (Proscar) 5 mg PO DAILY [facility]; Protocol Stop: 12/31/17 08:59 Last Admin: 11/07/17 16:54 Dose: Not Given Folic Acid (Folate) 1 mg PO DAILY [facility] Stop: 12/31/17 08:59 Last Admin: 11/07/17 16:54 Dose: Not Given Heparin Sodium (Porcine) (Heparin) 5,000 units HD PRN PRN PRN Reason: DIALYSIS PORTS Stop: 12/31/17 08:51 Piperacillin Sod/Tazobactam (Sod 2.25 gm/ Sodium Chloride) 50 mls @ 100 mls/hr IV Q8HR [facility] Stop: 12/31/17 04:59 Last Infusion: 11/07/17 18:31 Dose: Infused Norepinephrine Bitartrate 4 mg (/ Dextrose) 254 mls @ 0 mls/hr IV TITR PRN; Protocol PRN Reason: BP MAINTENANCE (PER PROTOCOL) Stop: 12/31/17 16:01 Last Titration: 11/03/17 16:31 Dose: 0 mcg/min, 0 mls/hr Lactobacillus Rhamnosus (Culturelle 15b) 1 each PO DAILY [facility] Stop: 01/01/18 13:59 Last Admin: 11/07/17 16:55 Dose: Not Given Levetiracetam (Keppra) 500 mg PO BID [facility] Stop: 12/31/17 08:59 Last Admin: 11/07/17 17:28 Dose: 500 mg Lorazepam (Ativan) 1 mg IVP Q6HR [facility]; Protocol PRN Reason: Seizure Stop: 12/31/17 08:51 Last Admin: 11/03/17 12:04 Dose: 1 mg Mirtazapine (Remeron) 15 mg PO HS [facility]; Protocol Stop: 12/31/17 20:59 Last Admin: 11/06/17 21:37 Dose: 15 mg Miscellaneous (Vancomycin Iv Per Pharmacy) 1 [facility] PRN PRN PRN Reason: PROTOCOL Stop: 12/31/17 01:03 Miscellaneous (Probiotic Screen) 1 [facility] PRN PRN PRN Reason: PROTOCOL Stop: 01/01/18 12:28 Olanzapine (Zyprexa) 2.5 mg PO HS [facility]; Protocol Stop: 12/31/17 20:59 Last Admin: 11/06/17 21:39 Dose: 2.5 mg Pantoprazole Sodium (Protonix) 40 mg PO DAILY [facility] Stop: 12/31/17 08:59 Last Admin: 11/07/17 16:55 Dose: Not Given Polyethylene Glycol (Miralax) 17 gm PO DAILY [facility] Stop: 12/31/17 12:59 Last Admin: 11/07/17 16:56 Dose: Not Given Tamsulosin HCl (Flomax) 0.4 mg PO BID [facility] Stop: 12/31/17 08:59 Last Admin: 11/07/17 18:31 Dose: 0.4 mg General: no acute distress, cachectic HEENT: atraumatic, normocephalic Neck: supple, no thyromegaly Cardiovascular: S1S2, regular Lungs: clear to auscultation bilaterally, clear to percussion Abdomen: soft, no tender, no distended Extremities: no cyanosis, no clubbing, no edema Neurological: awake, alert, oriented Skin: intact - Procedures Procedures: Procedures Procedure Code Date INSERTION OF INFUSION DEV INTO L SUBCLAV VEIN, PERC APPROACH [id number] 10/31/17 INSERTION OF INFUSION DEV INTO SUP VENA CAVA, PERC APPROACH [id number] 01/16/17 PERFORMANCE OF URINARY FILTRATION, <6 HRS/DAY [id number] 09/01/17 ULTRASONOGRAPHY OF LEFT SUBCLAVIAN VEIN, GUIDANCE [id number] 10/31/17 ULTRASONOGRAPHY OF SUPERIOR VENA CAVA, GUIDANCE [id number] 01/16/17 Infectious Disease Assmt/Plan - Problem List Patient Problems: All Active Problems HTN (hypertension) (Acute) I10 Hx of diabetes mellitus (Acute) Z86.39 Parkinson disease (Acute) G20 Septicemia (Acute) A41.9 infected cath (Acute) - Assessment Assessment: 1. Sepsis. Septic shock. Pneumonia versus line sepsis. Staph sepsis, 3/3 sets are positive improved, 2. Line sepsis. 3. Pneumonia. 4. 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 5. Hypertension. 6. Diabetes mellitus type 2. - Plan Plan: Continue same management. Antibiotic-dang, vancomycin IV and dc Zosyn. will continue vanco IV during HD for 6 weeks. Surveillance blood culture before attempting to do permanent access at least 2 weeks from now.. Nutritional Asmnt/Malnutr-PDOC - Dietary Evaluation Malnutrition Findings (Please click <Entered> for more info): Nutritional Asmnt/Malnutrition Start: 11/02/17 16: 00 Text: Status: Complete Freq: Protocol: Document 11/02/17 16:02 [facility] (Rec: 11/02/17 16:14 [id number]) Nutritional Asmnt/Malnutrition Patient General Information Nutritional Screening High Risk Diagnosis sepsis, PNA Pertinent Medical Hx/Surgical Hx HTN, Dm, CVA, ESRD, dementia Subjective Information Pt seen resting in bed at time of visit. Pt is now on NPO for possible surgery. Per nurse note, pt had dialysis today. Pt is on Levophed noted . Current Diet Order/ Nutrition Support NPO Pertinent Medications lipitor, iron, folate, culturelle, remeron, levophed, protonix, piperacillin, miralax Pertinent Labs 11/02 BUN 34, Cr 5.0, glucose 112 9/9 Na 135, Cr 3.7, glucose 101 Nutritional Hx/Data Height 1.68 m Height (Calculated Centimeters) 167.6 Current Weight (lbs) 67.132 kg Weight (Calculated Kilograms) 67.1 Weight (Calculated Grams) 77230.7 [place] Body Weight 142 Body Mass Index (BMI) 23.8 Weight Status Approriate GI Symptoms GI Symptoms None Last BM no BM Difficult in: None Skin Integrity/Comment: opening above permacath site reddned to left arm Estimated Nutritional Goals BEE in Kcals: Using Current wt Calories/Kcals/Kg 27-32 Kcals Calculated 0033-8471 Protein: Using Current wt Protein g/k.2 Protein Calculated 80 Fluid: ml 1809-2144ml (1ml/kcal) Nutritional Problem 2. Problem Problem increased nutrition needs Etiology increased metabolic demand Signs/Symptoms: pt on dialysis and dx of sepsis, PNA 1. Problem Problem altered nutrition related labs Etiology hx of ESRD Signs/Symptoms: BUN 34, Cr 5.0, Intervention/Recommendation Comments 1. Monitor NPO status. Resume oral diet when medically appropriate. If PO intake <50% , will consider offer Nepro to increase nutrition itnake. 2. Monitor PO intake, wt, labs and skin integrity 3. F/U as hifh risk in 2-3 days, 11/04-11/05 Expected Outcomes/Goals Expected Outcomes/Goals 1. PO intake to meet at least 75% of nutritional needs. 2. Wt stability, skin to remain intact, labs to approach WNL.
--- NOTE | 2017-11-07 20:11 | Progress Notes ---
DATE: 11/07/2017 SUBJECTIVE: The patient was seen in ICU. The patient is asleep, but easily arousable. The patient is a poor historian, appears to be weak. Otherwise, the patient is currently in no acute distress. OBJECTIVE: VITAL SIGNS: Temperature 98.2, heart rate 67, blood pressure 122/70, respirations 14, and 99% on room air. HEENT: Head is atraumatic and normocephalic. Eyes: Bilateral conjunctivae are clear. Bilateral pupils are equally round and reactive. NECK: Supple. No JVD. CARDIOVASCULAR: S1 and S2 without murmur. Sinus sree on the monitor. PULMONARY: Decreased breath sounds bilaterally. GASTROINTESTINAL: Soft and nontender without guarding. Positive bowel sounds. MUSCULOSKELETAL: No clubbing. No cyanosis noted. ASSESSMENT: 1. Pneumonia. 2. Sepsis. 3. Diabetes. 4. Chronic kidney disease, stage 5. PLAN: We will keep the patient inpatient. We will keep the patient in ICU for closer monitoring. We will continue on antibiotics and follow up with ID doctor. Treatment plans must were discussed with the patient's nurse. Treatment plans were discussed with Dr. Wiggins. JOB# [id number]
[2017-11-07] MEDS: Atorvastatin Calcium 10 MG TAB PO SCH (20:56)
[2017-11-08] MEDS: Lactobacillus Rhamnosus GG 15 Billion CFU CAP.SPRINK PO SCH (10:04)
[2017-11-08] MEDS: Ferrous Sulfate 325 MG TAB PO SCH ×2 (10:05→18:14)
[2017-11-08] MEDS: Aspirin 81mg Chewable Tab PO SCH (10:05)
[2017-11-08] MEDS: Pantoprazole 40 mg EC Tab PO SCH (10:05)
[2017-11-08] MEDS: POLYETHYLENE GLYCOL 3350 17 GM PACK PO SCH (10:06)
--- NOTE | 2017-11-08 12:27 | General Progress Note ---
Subjective - Review of Systems Events since last encounter: patient seems comfortable no signs of pain Subjective: as per order sheet will monitor Objective - Results Result Diagrams: 11/04/17 06:30 11/05/17 05:00 Recent Labs: Laboratory Last Values WBC 4.3 Th/cmm (4.8-10.8) L 11/04/17 06:30 RBC 2.94 Mil/cmm (3.80-5.80) L 11/04/17 06:30 Hgb 9.4 gm/dL (12-16) L 11/04/17 06:30 Hct 27.3 % (41.0-60) L 11/04/17 06:30 MCV 93.0 fl (80-99) 11/04/17 06:30 MCH 31.9 pg (27.0-31.0) H 11/04/17 06:30 MCHC Differential 34.3 pg (28.0-36.0) 11/04/17 06:30 RDW 13.6 % (11.5-20.0) 11/04/17 06:30 Plt Count 151 Th/cmm (150-400) 11/04/17 06:30 MPV 7.6 fl 11/04/17 06:30 Add Manual Diff YES 11/01/17 06:04 Neutrophils % 67.9 % (40.0-80.0) 11/04/17 06:30 Band Neutrophils % 4 % (0-10) 11/01/17 06:04 Lymphocytes % 11.5 % (20.0-50.0) L 11/04/17 06:30 Monocytes % 12.4 % (2.0-10.0) H 11/04/17 06:30 Eosinophils % 7.0 % (0.0-5.0) H 11/04/17 06:30 Basophils % 1.2 % (0.0-2.0) 11/04/17 06:30 Neutrophils (Manual) 84 % (40-80) H 11/01/17 06:04 Lymphocytes 6 % (20-50) L 11/01/17 06:04 Monocytes 6 % (2-10) 11/01/17 06:04 Eosinophils 0 % (0-5) 11/01/17 06:04 Basophils 0 % (0-3) 11/01/17 06:04 PT 11.0 SECONDS (9.5-11.5) 10/31/17 21:40 INR 1.06 (0.5-1.4) 10/31/17 21:40 Sodium 139 mEq/L (136-145) 11/05/17 05:00 Potassium 3.9 mEq/L (3.5-5.1) 11/05/17 05:00 Chloride 106 mEq/L (98-107) 11/05/17 05:00 Carbon Dioxide 23.3 mEq/L (21.0-31.0) 11/05/17 05:00 Anion Gap 13.6 (7.0-16.0) 11/05/17 05:00 BUN 28 mg/dL (7-25) H 11/05/17 05:00 Creatinine 5.5 mg/dL (0.7-1.3) H* 11/05/17 05:00 Est GFR ( Amer) TNP 11/05/17 05:00 Est GFR (Non-Af Amer) TNP 11/05/17 05:00 BUN/Creatinine Ratio 5.1 11/05/17 05:00 Glucose 86 mg/dL (70-105) 11/05/17 05:00 Whole Bld Lactic Acid 1.36 mmol/L (0.60-1.99) 11/01/17 17:50 Calcium 9.4 mg/dL (8.6-10.3) 11/05/17 05:00 Magnesium 1.9 mg/dL (1.9-2.7) 11/05/17 05:00 Total Bilirubin 0.6 mg/dL (0.3-1.0) 10/31/17 21:40 AST 38 U/L (13-39) 10/31/17 21:40 ALT 31 U/L (7-52) 10/31/17 21:40 Alkaline Phosphatase 109 U/L (34-104) H 10/31/17 21:40 Troponin I 0.04 ng/mL (0.01-0.05) 10/31/17 21:40 B-Natriuretic Peptide 959.0 pg/mL (5.0-100.0) H 11/03/17 04:05 Total Protein 7.1 gm/dL (6.0-8.3) 10/31/17 21:40 Albumin 3.4 gm/dL (4.2-5.5) L 10/31/17 21:40 Globulin 3.7 gm/dL 10/31/17 21:40 Albumin/Globulin Ratio 0.9 (1.0-1.8) L 10/31/17 21:40 Triglycerides 78 mg/dL (<150) 11/01/17 06:04 Cholesterol 89 mg/dL (<200) 11/01/17 06:04 LDL Cholesterol Direct 39 mg/dL (75-193) L 11/01/17 06:04 HDL Cholesterol 33 mg/dL (23-92) 11/01/17 06:04 TSH 0.55 uIU/ml (0.34-5.60) 11/01/17 06:04 Random Vancomycin 20.7 ug/mL (5.0-40.0) 11/07/17 05:30 - Physical Exam Vitals and I&O: Vital Signs Temp 98.1 F 11/08/17 08:00 Pulse 75 11/08/17 08:00 Resp 20 11/08/17 08:00 BP 138/73 11/08/17 08:00 Pulse Ox 98 11/08/17 08:00 Intake & Output 11/07/17 11/08/17 11/08/17 18:59 06:59 18:59 Intake Total 400 100 Output Total 1000 Balance -600 100 Weight (lbs) 70.307 kg 70.307 kg Intake: Intake, IV Amount 50 Piperacillin Sodium/ 50 Tazobact 2.25 gm In Sodium Chloride 0.9% 50 ml @ 100 mls/hr IV Q8HR [facility] Rx#:[id number] Oral 350 100 Output: Hemodialysis 1000 Other: # Voids 2 # Bowel Movements 0 0 Weight Source Patient stated Patient stated Active Medications: Current Medications Acetaminophen (Tylenol) 650 mg PO Q4H PRN PRN Reason: MILD PAIN 1-3/ FEVER ABOVE 101 Stop: 12/31/17 00:37 Last Admin: 11/03/17 04:49 Dose: 650 mg Aspirin (Aspirin Chewable) 81 mg PO DAILY [facility] Stop: 12/31/17 08:59 Last Admin: 11/08/17 10:05 Dose: 81 mg Atorvastatin Calcium (Lipitor) 10 mg PO HS [facility]; Protocol Stop: 12/31/17 20:59 Last Admin: 11/07/17 20:56 Dose: 10 mg Citalopram Hydrobromide (Celexa) 20 mg PO DAILY [facility]; Protocol Stop: 12/31/17 08:59 Last Admin: 11/08/17 10:05 Dose: 20 mg Donepezil HCl (Aricept) 5 mg PO DAILY [facility] Stop: 12/31/17 08:59 Last Admin: 11/08/17 10:04 Dose: 5 mg Ferrous Sulfate (Iron) 325 mg PO BID [facility] Stop: 12/31/17 08:59 Last Admin: 11/08/17 10:05 Dose: 325 mg Finasteride (Proscar) 5 mg PO DAILY [facility]; Protocol Stop: 12/31/17 08:59 Last Admin: 11/07/17 16:54 Dose: Not Given Folic Acid (Folate) 1 mg PO DAILY [facility] Stop: 12/31/17 08:59 Last Admin: 11/08/17 10:04 Dose: 1 mg Heparin Sodium (Porcine) (Heparin) 5,000 units HD PRN PRN PRN Reason: DIALYSIS PORTS Stop: 12/31/17 08:51 Piperacillin Sod/Tazobactam (Sod 2.25 gm/ Sodium Chloride) 50 mls @ 100 mls/hr IV Q8HR [facility] Stop: 12/31/17 04:59 Last Admin: 11/08/17 05:00 Dose: Not Given Norepinephrine Bitartrate 4 mg (/ Dextrose) 254 mls @ 0 mls/hr IV TITR PRN; Protocol PRN Reason: BP MAINTENANCE (PER PROTOCOL) Stop: 12/31/17 16:01 Last Titration: 11/03/17 16:31 Dose: 0 mcg/min, 0 mls/hr Lactobacillus Rhamnosus (Culturelle 15b) 1 each PO DAILY [facility] Stop: 01/01/18 13:59 Last Admin: 11/08/17 10:04 Dose: 1 each Levetiracetam (Keppra) 500 mg PO BID [facility] Stop: 12/31/17 08:59 Last Admin: 11/08/17 10:05 Dose: 500 mg Lorazepam (Ativan) 1 mg IVP Q6HR PRN; Protocol PRN Reason: Seizure Stop: 12/31/17 08:51 Last Admin: 11/03/17 12:04 Dose: 1 mg Mirtazapine (Remeron) 15 mg PO HS [facility]; Protocol Stop: 12/31/17 20:59 Last Admin: 11/07/17 20:56 Dose: 15 mg Miscellaneous (Vancomycin Iv Per Pharmacy) 1 ea PRN PRN PRN Reason: PROTOCOL Stop: 12/31/17 01:03 Miscellaneous (Probiotic Screen) 1 ea PRN PRN PRN Reason: PROTOCOL Stop: 01/01/18 12:28 Olanzapine (Zyprexa) 2.5 mg PO HS [facility]; Protocol Stop: 12/31/17 20:59 Last Admin: 11/07/17 20:57 Dose: 2.5 mg Pantoprazole Sodium (Protonix) 40 mg PO DAILY [facility] Stop: 12/31/17 08:59 Last Admin: 11/08/17 10:05 Dose: 40 mg Polyethylene Glycol (Miralax) 17 gm PO DAILY [facility] Stop: 12/31/17 12:59 Last Admin: 11/08/17 10:06 Dose: 17 gm Tamsulosin HCl (Flomax) 0.4 mg PO BID [facility] Stop: 12/31/17 08:59 Last Admin: 11/08/17 10:04 Dose: 0.4 mg General: Alert, No acute distress HEENT: Atraumatic, PERRLA, Mucous membr. moist/pink Neck: Supple, +2 carotid pulse wo bruit Cardiovascular: Regular rate, Normal S1, Normal S2 Lungs: Normal air movement Abdomen: Bowel sounds, Soft Extremities: no Edema Neurological: Sensation intact Skin: no Rash Psych/Mental Status: Mood NL - Procedures Procedures: Procedures Procedure Code Date INSERTION OF INFUSION DEV INTO L SUBCLAV VEIN, PERC APPROACH 65A431P 10/31/17 INSERTION OF INFUSION DEV INTO SUP VENA CAVA, PERC APPROACH [id number] 01/16/17 PERFORMANCE OF URINARY FILTRATION, <6 HRS/DAY [id number] 09/01/17 ULTRASONOGRAPHY OF LEFT SUBCLAVIAN VEIN, GUIDANCE [id number] 10/31/17 ULTRASONOGRAPHY OF SUPERIOR VENA CAVA, GUIDANCE [id number] 01/16/17 Assessment/Plan - Problem List Patient Problems: All Active Problems HTN (hypertension) (Acute) I10 Hx of diabetes mellitus (Acute) Z86.39 Parkinson disease (Acute) G20 Septicemia (Acute) A41.9 infected cath (Acute) Nutritional Asmnt/Malnutr-PDOC - Dietary Evaluation Malnutrition Findings (Please click <Entered> for more info): Nutritional Asmnt/Malnutrition Start: 11/02/17 16: 00 Text: Status: Complete Freq: Protocol: Document 11/02/17 16:02 GEORGECRYSTAL (Rec: 11/02/17 16:14 GEORGECRYSTAL [email or web address]) Nutritional Asmnt/Malnutrition Patient General Information Nutritional Screening High Risk Diagnosis sepsis, PNA Pertinent Medical Hx/Surgical Hx HTN, Dm, CVA, ESRD, dementia Subjective Information Pt seen resting in bed at time of visit. Pt is now on NPO for possible surgery. Per nurse note, pt had dialysis today. Pt is on Levophed noted . Current Diet Order/ Nutrition Support NPO Pertinent Medications lipitor, iron, folate, culturelle, remeron, levophed, protonix, piperacillin, miralax Pertinent Labs 11/02 BUN 34, Cr 5.0, glucose 112 11/01 Na 135, Cr 3.7, glucose 101 Nutritional Hx/Data Height 1.68 m Height (Calculated Centimeters) 167.6 Current Weight (lbs) 67.132 kg Weight (Calculated Kilograms) 67.1 Weight (Calculated Grams) 26342.7 [place] Body Weight 142 Body Mass Index (BMI) 23.8 Weight Status Approriate GI Symptoms GI Symptoms None Last BM no BM Difficult in: None Skin Integrity/Comment: opening above permacath site reddned to left arm Estimated Nutritional Goals BEE in Kcals: Using Current wt Calories/Kcals/Kg 27-32 Kcals Calculated 9458-3891 Protein: Using Current wt Protein g/k.2 Protein Calculated 80 Fluid: ml 1809-2144ml (1ml/kcal) Nutritional Problem 2. Problem Problem increased nutrition needs Etiology increased metabolic demand Signs/Symptoms: pt on dialysis and dx of sepsis, PNA 1. Problem Problem altered nutrition related labs Etiology hx of ESRD Signs/Symptoms: BUN 34, Cr 5.0, Intervention/Recommendation Comments 1. Monitor NPO status. Resume oral diet when medically appropriate. If PO intake <50% , will consider offer Nepro to increase nutrition itnake. 2. Monitor PO intake, wt, labs and skin integrity 3. F/U as hifh risk in 2-3 days, 11/04-11/05 Expected Outcomes/Goals Expected Outcomes/Goals 1. PO intake to meet at least 75% of nutritional needs. 2. Wt stability, skin to remain intact, labs to approach WNL.
--- NOTE | 2017-11-08 13:48 | General Progress Note ---
Subjective - Review of Systems Service Date: 11/08/17 Subjective: more interactive, comfortable Objective - Results Result Diagrams: 11/04/17 06:30 11/05/17 05:00 Recent Labs: Laboratory Last Values WBC 4.3 Th/cmm (4.8-10.8) L 11/04/17 06:30 RBC 2.94 Mil/cmm (3.80-5.80) L 11/04/17 06:30 Hgb 9.4 gm/dL (12-16) L 11/04/17 06:30 Hct 27.3 % (41.0-60) L 11/04/17 06:30 MCV 93.0 fl (80-99) 11/04/17 06:30 MCH 31.9 pg (27.0-31.0) H 11/04/17 06:30 MCHC Differential 34.3 pg (28.0-36.0) 11/04/17 06:30 RDW 13.6 % (11.5-20.0) 11/04/17 06:30 Plt Count 151 Th/cmm (150-400) 11/04/17 06:30 MPV 7.6 fl 11/04/17 06:30 Add Manual Diff YES 11/01/17 06:04 Neutrophils % 67.9 % (40.0-80.0) 11/04/17 06:30 Band Neutrophils % 4 % (0-10) 11/01/17 06:04 Lymphocytes % 11.5 % (20.0-50.0) L 11/04/17 06:30 Monocytes % 12.4 % (2.0-10.0) H 11/04/17 06:30 Eosinophils % 7.0 % (0.0-5.0) H 11/04/17 06:30 Basophils % 1.2 % (0.0-2.0) 11/04/17 06:30 Neutrophils (Manual) 84 % (40-80) H 11/01/17 06:04 Lymphocytes 6 % (20-50) L 11/01/17 06:04 Monocytes 6 % (2-10) 11/01/17 06:04 Eosinophils 0 % (0-5) 11/01/17 06:04 Basophils 0 % (0-3) 11/01/17 06:04 PT 11.0 SECONDS (9.5-11.5) 10/31/17 21:40 INR 1.06 (0.5-1.4) 10/31/17 21:40 Sodium 139 mEq/L (136-145) 11/05/17 05:00 Potassium 3.9 mEq/L (3.5-5.1) 11/05/17 05:00 Chloride 106 mEq/L (98-107) 11/05/17 05:00 Carbon Dioxide 23.3 mEq/L (21.0-31.0) 11/05/17 05:00 Anion Gap 13.6 (7.0-16.0) 11/05/17 05:00 BUN 28 mg/dL (7-25) H 11/05/17 05:00 Creatinine 5.5 mg/dL (0.7-1.3) H* 11/05/17 05:00 Est GFR ( Amer) TNP 11/05/17 05:00 Est GFR (Non-Af Amer) TNP 11/05/17 05:00 BUN/Creatinine Ratio 5.1 11/05/17 05:00 Glucose 86 mg/dL (70-105) 11/05/17 05:00 Whole Bld Lactic Acid 1.36 mmol/L (0.60-1.99) 11/01/17 17:50 Calcium 9.4 mg/dL (8.6-10.3) 11/05/17 05:00 Magnesium 1.9 mg/dL (1.9-2.7) 11/05/17 05:00 Total Bilirubin 0.6 mg/dL (0.3-1.0) 10/31/17 21:40 AST 38 U/L (13-39) 10/31/17 21:40 ALT 31 U/L (7-52) 10/31/17 21:40 Alkaline Phosphatase 109 U/L (34-104) H 10/31/17 21:40 Troponin I 0.04 ng/mL (0.01-0.05) 10/31/17 21:40 B-Natriuretic Peptide 959.0 pg/mL (5.0-100.0) H 11/03/17 04:05 Total Protein 7.1 gm/dL (6.0-8.3) 10/31/17 21:40 Albumin 3.4 gm/dL (4.2-5.5) L 10/31/17 21:40 Globulin 3.7 gm/dL 10/31/17 21:40 Albumin/Globulin Ratio 0.9 (1.0-1.8) L 10/31/17 21:40 Triglycerides 78 mg/dL (<150) 11/01/17 06:04 Cholesterol 89 mg/dL (<200) 11/01/17 06:04 LDL Cholesterol Direct 39 mg/dL (75-193) L 11/01/17 06:04 HDL Cholesterol 33 mg/dL (23-92) 11/01/17 06:04 TSH 0.55 uIU/ml (0.34-5.60) 11/01/17 06:04 Random Vancomycin 20.7 ug/mL (5.0-40.0) 11/07/17 05:30 - Physical Exam Vitals and I&O: Vital Signs Temp 98.1 F 11/08/17 08:00 Pulse 75 11/08/17 08:00 Resp 20 11/08/17 08:00 BP 138/73 11/08/17 08:00 Pulse Ox 98 11/08/17 08:00 Intake & Output 11/07/17 11/08/17 11/08/17 18:59 06:59 18:59 Intake Total 400 100 Output Total 1000 Balance -600 100 Weight (lbs) 70.307 kg 70.307 kg Intake: Intake, IV Amount 50 Piperacillin Sodium/ 50 Tazobact 2.25 gm In Sodium Chloride 0.9% 50 ml @ 100 mls/hr IV Q8HR [facility] Rx#:[id number] Oral 350 100 Output: Hemodialysis 1000 Other: # Voids 2 # Bowel Movements 0 0 Weight Source Patient stated Patient stated Active Medications: Current Medications Acetaminophen (Tylenol) 650 mg PO Q4H PRN PRN Reason: MILD PAIN 1-3/ FEVER ABOVE 101 Stop: 12/31/17 00:37 Last Admin: 11/03/17 04:49 Dose: 650 mg Aspirin (Aspirin Chewable) 81 mg PO DAILY [facility] Stop: 12/31/17 08:59 Last Admin: 11/08/17 10:05 Dose: 81 mg Atorvastatin Calcium (Lipitor) 10 mg PO HS [facility]; Protocol Stop: 12/31/17 20:59 Last Admin: 11/07/17 20:56 Dose: 10 mg Citalopram Hydrobromide (Celexa) 20 mg PO DAILY [facility]; Protocol Stop: 12/31/17 08:59 Last Admin: 11/08/17 10:05 Dose: 20 mg Donepezil HCl (Aricept) 5 mg PO DAILY [facility] Stop: 12/31/17 08:59 Last Admin: 11/08/17 10:04 Dose: 5 mg Ferrous Sulfate (Iron) 325 mg PO BID [facility] Stop: 12/31/17 08:59 Last Admin: 11/08/17 10:05 Dose: 325 mg Finasteride (Proscar) 5 mg PO DAILY [facility]; Protocol Stop: 12/31/17 08:59 Last Admin: 11/07/17 16:54 Dose: Not Given Folic Acid (Folate) 1 mg PO DAILY [facility] Stop: 12/31/17 08:59 Last Admin: 11/08/17 10:04 Dose: 1 mg Heparin Sodium (Porcine) (Heparin) 5,000 units HD PRN PRN PRN Reason: DIALYSIS PORTS Stop: 12/31/17 08:51 Piperacillin Sod/Tazobactam (Sod 2.25 gm/ Sodium Chloride) 50 mls @ 100 mls/hr IV Q8HR [facility] Stop: 12/31/17 04:59 Last Admin: 11/08/17 05:00 Dose: Not Given Norepinephrine Bitartrate 4 mg (/ Dextrose) 254 mls @ 0 mls/hr IV TITR PRN; Protocol PRN Reason: BP MAINTENANCE (PER PROTOCOL) Stop: 12/31/17 16:01 Last Titration: 11/03/17 16:31 Dose: 0 mcg/min, 0 mls/hr Lactobacillus Rhamnosus (Culturelle 15b) 1 each PO DAILY [facility] Stop: 01/01/18 13:59 Last Admin: 11/08/17 10:04 Dose: 1 each Levetiracetam (Keppra) 500 mg PO BID [facility] Stop: 12/31/17 08:59 Last Admin: 11/08/17 10:05 Dose: 500 mg Lorazepam (Ativan) 1 mg IVP Q6HR PRN; Protocol PRN Reason: Seizure Stop: 12/31/17 08:51 Last Admin: 11/03/17 12:04 Dose: 1 mg Mirtazapine (Remeron) 15 mg PO HS [facility]; Protocol Stop: 12/31/17 20:59 Last Admin: 11/07/17 20:56 Dose: 15 mg Miscellaneous (Probiotic Screen) 1 ea MC PRN PRN PRN Reason: PROTOCOL Stop: 01/01/18 12:28 Olanzapine (Zyprexa) 2.5 mg PO HS [facility]; Protocol Stop: 12/31/17 20:59 Last Admin: 11/07/17 20:57 Dose: 2.5 mg Pantoprazole Sodium (Protonix) 40 mg PO DAILY [facility] Stop: 12/31/17 08:59 Last Admin: 11/08/17 10:05 Dose: 40 mg Polyethylene Glycol (Miralax) 17 gm PO DAILY [facility] Stop: 12/31/17 12:59 Last Admin: 11/08/17 10:06 Dose: 17 gm Tamsulosin HCl (Flomax) 0.4 mg PO BID [facility] Stop: 12/31/17 08:59 Last Admin: 11/08/17 10:04 Dose: 0.4 mg General: Alert, No acute distress HEENT: Atraumatic, PERRLA, Mucous membr. moist/pink Neck: Supple, +2 carotid pulse wo bruit Cardiovascular: Regular rate, Normal S1, Normal S2 Lungs: Normal air movement Abdomen: Bowel sounds, Soft Extremities: no Edema Neurological: Sensation intact Skin: no Rash Psych/Mental Status: Mood NL - Procedures Procedures: Procedures Procedure Code Date INSERTION OF INFUSION DEV INTO L SUBCLAV VEIN, PERC APPROACH 04K168T 10/31/17 INSERTION OF INFUSION DEV INTO SUP VENA CAVA, PERC APPROACH [id number] 01/16/17 PERFORMANCE OF URINARY FILTRATION, <6 HRS/DAY [id number] 09/01/17 ULTRASONOGRAPHY OF LEFT SUBCLAVIAN VEIN, GUIDANCE [id number] 10/31/17 ULTRASONOGRAPHY OF SUPERIOR VENA CAVA, GUIDANCE [id number] 01/16/17 Assessment/Plan - Problem List Patient Problems: All Active Problems HTN (hypertension) (Acute) I10 Hx of diabetes mellitus (Acute) Z86.39 Parkinson disease (Acute) G20 Septicemia (Acute) A41.9 infected cath (Acute) - Assessment Assessment: ESRD on HD MRSA septicemia 2/2 line infxn Shock: septic Constipation Ess Htn w/ CKD GERD Dyslipidemia MRSA nares - Plan Plan: Lab - Result Diagrams 11/02/17 04:10 11/02/17 04:10 Current Medications Acetaminophen (Tylenol) 650 mg PO Q4H PRN PRN Reason: MILD PAIN 1-3/ FEVER ABOVE 101 Stop: 12/31/17 00:37 Last Admin: 11/01/17 19:36 Dose: 650 mg Aspirin (Aspirin Chewable) 81 mg PO DAILY [facility] Stop: 12/31/17 08:59 Last Admin: 11/02/17 09:42 Dose: 81 mg Atorvastatin Calcium (Lipitor) 10 mg PO HS [facility]; Protocol Stop: 12/31/17 20:59 Last Admin: 11/01/17 20:58 Dose: 10 mg Citalopram Hydrobromide (Celexa) 20 mg PO DAILY [facility]; Protocol Stop: 12/31/17 08:59 Donepezil HCl (Aricept) 5 mg PO DAILY [facility] Stop: 12/31/17 08:59 Last Admin: 11/02/17 09:41 Dose: 5 mg Ferrous Sulfate (Iron) 325 mg PO BID [facility] Stop: 12/31/17 08:59 Last Admin: 11/02/17 09:43 Dose: 325 mg Finasteride (Proscar) 5 mg PO DAILY [facility]; Protocol Stop: 12/31/17 08:59 Last Admin: 11/02/17 09:47 Dose: 5 mg Folic Acid (Folate) 1 mg PO DAILY [facility] Stop: 12/31/17 08:59 Last Admin: 11/02/17 09:43 Dose: 1 mg Heparin Sodium (Porcine) (Heparin) 5,000 units HD PRN PRN PRN Reason: DIALYSIS PORTS Stop: 12/31/17 08:51 Piperacillin Sod/Tazobactam (Sod 2.25 gm/ Sodium Chloride) 50 mls @ 100 mls/hr IV Q8HR [facility] Stop: 12/31/17 04:59 Last Admin: 11/02/17 12:56 Dose: 100 mls/hr Norepinephrine Bitartrate 4 mg (/ Dextrose) 254 mls @ 0 mls/hr IV TITR PRN; Protocol PRN Reason: BP MAINTENANCE (PER PROTOCOL) Stop: 12/31/17 16:01 Last Titration: 11/02/17 06:18 Dose: 4 mcg/min, 15.24 mls/hr Lactobacillus Rhamnosus (Culturelle 15b) 1 each PO DAILY [facility] Stop: 01/01/18 13:59 Levetiracetam (Keppra) 500 mg PO BID [facility] Stop: 12/31/17 08:59 Last Admin: 11/02/17 09:41 Dose: 500 mg Lorazepam (Ativan) 1 mg IVP Q6HR PRN; Protocol PRN Reason: Seizure Stop: 12/31/17 08:51 Last Admin: 11/01/17 18:24 Dose: 1 mg Mirtazapine (Remeron) 15 mg PO HS [facility]; Protocol Stop: 12/31/17 20:59 Miscellaneous (Vancomycin Iv Per Pharmacy) 1 ea PRN PRN PRN Reason: PROTOCOL Stop: 12/31/17 01:03 Miscellaneous (Probiotic Screen) 1 ea PRN PRN PRN Reason: PROTOCOL Stop: 01/01/18 12:28 Mupirocin (Bactroban Oint) 1 appl NS BID [facility] Stop: 11/07/17 09:01 Olanzapine (Zyprexa) 2.5 mg PO HS [facility]; Protocol Stop: 12/31/17 20:59 Pantoprazole Sodium (Protonix) 40 mg PO DAILY [facility] Stop: 12/31/17 08:59 Last Admin: 11/02/17 09:41 Dose: 40 mg Polyethylene Glycol (Miralax) 17 gm PO DAILY [facility] Stop: 12/31/17 12:59 Last Admin: 11/02/17 09:41 Dose: 17 gm Tamsulosin HCl (Flomax) 0.4 mg PO BID [facility] Stop: 12/31/17 08:59 Last Admin: 11/02/17 09:41 Dose: 0.4 m Lab - Result Diagrams 11/04/17 06:30 11/05/17 05:00 BC grew MRSA pt. was dialyzed yesterday & tolerated it well consider DC zosyn & continue Vanco on Zosyn off Levo f/u electrolytes, cbc Nutritional Asmnt/Malnutr-PDOC - Dietary Evaluation Malnutrition Findings (Please click <Entered> for more info): Nutritional Asmnt/Malnutrition Start: 11/02/17 16: 00 Text: Status: Complete Freq: Protocol: Document 11/02/17 16:02 CARMEN (Rec: 11/02/17 16:14 CARMEN [email or web address]) Nutritional Asmnt/Malnutrition Patient General Information Nutritional Screening High Risk Diagnosis sepsis, PNA Pertinent Medical Hx/Surgical Hx HTN, Dm, CVA, ESRD, dementia Subjective Information Pt seen resting in bed at time of visit. Pt is now on NPO for possible surgery. Per nurse note, pt had dialysis today. Pt is on Levophed noted . Current Diet Order/ Nutrition Support NPO Pertinent Medications lipitor, iron, folate, culturelle, remeron, levophed, protonix, piperacillin, miralax Pertinent Labs 11/02 BUN 34, Cr 5.0, glucose 112 11/01 Na 135, Cr 3.7, glucose 101 Nutritional Hx/Data Height 1.68 m Height (Calculated Centimeters) 167.6 Current Weight (lbs) 67.132 kg Weight (Calculated Kilograms) 67.1 Weight (Calculated Grams) 71470.7 [place] Body Weight 142 Body Mass Index (BMI) 23.8 Weight Status Approriate GI Symptoms GI Symptoms None Last BM no BM Difficult in: None Skin Integrity/Comment: opening above permacath site reddned to left arm Estimated Nutritional Goals BEE in Kcals: Using Current wt Calories/Kcals/Kg 27-32 Kcals Calculated 9361-4124 Protein: Using Current wt Protein g/k.2 Protein Calculated 80 Fluid: ml 1809-2144ml (1ml/kcal) Nutritional Problem 2. Problem Problem increased nutrition needs Etiology increased metabolic demand Signs/Symptoms: pt on dialysis and dx of sepsis, PNA 1. Problem Problem altered nutrition related labs Etiology hx of ESRD Signs/Symptoms: BUN 34, Cr 5.0, Intervention/Recommendation Comments 1. Monitor NPO status. Resume oral diet when medically appropriate. If PO intake <50% , will consider offer Nepro to increase nutrition itnake. 2. Monitor PO intake, wt, labs and skin integrity 3. F/U as hifh risk in 2-3 days, 11/04-11/05 Expected Outcomes/Goals Expected Outcomes/Goals 1. PO intake to meet at least 75% of nutritional needs. 2. Wt stability, skin to remain intact, labs to approach WNL.
--- NOTE | 2017-11-08 19:29 | Infectious Disease Prog Note ---
Infectious Disease Subjective - Review of Systems Service Date: 11/08/17 Subjective: There is no new change. 3/5 Blood cultures grew MRSA. Infectious Disease Objective - Results Result Diagrams: 11/04/17 06:30 11/05/17 05:00 Recent Labs: Laboratory Last Values WBC 4.3 Th/cmm (4.8-10.8) L 11/04/17 06:30 RBC 2.94 Mil/cmm (3.80-5.80) L 11/04/17 06:30 Hgb 9.4 gm/dL (12-16) L 11/04/17 06:30 Hct 27.3 % (41.0-60) L 11/04/17 06:30 MCV 93.0 fl (80-99) 11/04/17 06:30 MCH 31.9 pg (27.0-31.0) H 11/04/17 06:30 MCHC Differential 34.3 pg (28.0-36.0) 11/04/17 06:30 RDW 13.6 % (11.5-20.0) 11/04/17 06:30 Plt Count 151 Th/cmm (150-400) 11/04/17 06:30 MPV 7.6 fl 11/04/17 06:30 Add Manual Diff YES 11/01/17 06:04 Neutrophils % 67.9 % (40.0-80.0) 11/04/17 06:30 Band Neutrophils % 4 % (0-10) 11/01/17 06:04 Lymphocytes % 11.5 % (20.0-50.0) L 11/04/17 06:30 Monocytes % 12.4 % (2.0-10.0) H 11/04/17 06:30 Eosinophils % 7.0 % (0.0-5.0) H 11/04/17 06:30 Basophils % 1.2 % (0.0-2.0) 11/04/17 06:30 Neutrophils (Manual) 84 % (40-80) H 11/01/17 06:04 Lymphocytes 6 % (20-50) L 11/01/17 06:04 Monocytes 6 % (2-10) 11/01/17 06:04 Eosinophils 0 % (0-5) 11/01/17 06:04 Basophils 0 % (0-3) 11/01/17 06:04 PT 11.0 SECONDS (9.5-11.5) 10/31/17 21:40 INR 1.06 (0.5-1.4) 10/31/17 21:40 Sodium 139 mEq/L (136-145) 11/05/17 05:00 Potassium 3.9 mEq/L (3.5-5.1) 11/05/17 05:00 Chloride 106 mEq/L (98-107) 11/05/17 05:00 Carbon Dioxide 23.3 mEq/L (21.0-31.0) 11/05/17 05:00 Anion Gap 13.6 (7.0-16.0) 11/05/17 05:00 BUN 28 mg/dL (7-25) H 11/05/17 05:00 Creatinine 5.5 mg/dL (0.7-1.3) H* 11/05/17 05:00 Est GFR ( Amer) TNP 11/05/17 05:00 Est GFR (Non-Af Amer) TNP 11/05/17 05:00 BUN/Creatinine Ratio 5.1 11/05/17 05:00 Glucose 86 mg/dL (70-105) 11/05/17 05:00 Whole Bld Lactic Acid 1.36 mmol/L (0.60-1.99) 11/01/17 17:50 Calcium 9.4 mg/dL (8.6-10.3) 11/05/17 05:00 Magnesium 1.9 mg/dL (1.9-2.7) 11/05/17 05:00 Total Bilirubin 0.6 mg/dL (0.3-1.0) 10/31/17 21:40 AST 38 U/L (13-39) 10/31/17 21:40 ALT 31 U/L (7-52) 10/31/17 21:40 Alkaline Phosphatase 109 U/L (34-104) H 10/31/17 21:40 Troponin I 0.04 ng/mL (0.01-0.05) 10/31/17 21:40 B-Natriuretic Peptide 959.0 pg/mL (5.0-100.0) H 11/03/17 04:05 Total Protein 7.1 gm/dL (6.0-8.3) 10/31/17 21:40 Albumin 3.4 gm/dL (4.2-5.5) L 10/31/17 21:40 Globulin 3.7 gm/dL 10/31/17 21:40 Albumin/Globulin Ratio 0.9 (1.0-1.8) L 10/31/17 21:40 Triglycerides 78 mg/dL (<150) 11/01/17 06:04 Cholesterol 89 mg/dL (<200) 11/01/17 06:04 LDL Cholesterol Direct 39 mg/dL (75-193) L 11/01/17 06:04 HDL Cholesterol 33 mg/dL (23-92) 11/01/17 06:04 TSH 0.55 uIU/ml (0.34-5.60) 11/01/17 06:04 Random Vancomycin 20.7 ug/mL (5.0-40.0) 11/07/17 05:30 - Physical Exam Vitals and I&O: Vital Signs Temp 98.4 F 11/08/17 15:57 Pulse 89 11/08/17 15:57 Resp 19 11/08/17 15:57 BP 105/71 11/08/17 15:57 Pulse Ox 95 11/08/17 15:57 Intake & Output 11/08/17 11/08/17 11/09/17 06:59 18:59 06:59 Intake Total 100 Balance 100 Weight (lbs) 70.307 kg Intake: Oral 100 Other: # Voids 2 # Bowel Movements 0 Weight Source Patient stated Active Medications: Current Medications Acetaminophen (Tylenol) 650 mg PO Q4H PRN PRN Reason: MILD PAIN 1-3/ FEVER ABOVE 101 Stop: 12/31/17 00:37 Last Admin: 11/03/17 04:49 Dose: 650 mg Aspirin (Aspirin Chewable) 81 mg PO DAILY [facility] Stop: 12/31/17 08:59 Last Admin: 11/08/17 10:05 Dose: 81 mg Atorvastatin Calcium (Lipitor) 10 mg PO HS [facility]; Protocol Stop: 12/31/17 20:59 Last Admin: 11/07/17 20:56 Dose: 10 mg Citalopram Hydrobromide (Celexa) 20 mg PO DAILY [facility]; Protocol Stop: 12/31/17 08:59 Last Admin: 11/08/17 10:05 Dose: 20 mg Donepezil HCl (Aricept) 5 mg PO DAILY [facility] Stop: 12/31/17 08:59 Last Admin: 11/08/17 10:04 Dose: 5 mg Ferrous Sulfate (Iron) 325 mg PO BID [facility] Stop: 12/31/17 08:59 Last Admin: 11/08/17 18:14 Dose: 325 mg Finasteride (Proscar) 5 mg PO DAILY [facility]; Protocol Stop: 12/31/17 08:59 Last Admin: 11/08/17 09:00 Dose: 5 mg Folic Acid (Folate) 1 mg PO DAILY [facility] Stop: 12/31/17 08:59 Last Admin: 11/08/17 10:04 Dose: 1 mg Heparin Sodium (Porcine) (Heparin) 5,000 units HD PRN PRN PRN Reason: DIALYSIS PORTS Stop: 12/31/17 08:51 Norepinephrine Bitartrate 4 mg (/ Dextrose) 254 mls @ 0 mls/hr IV TITR PRN; Protocol PRN Reason: BP MAINTENANCE (PER PROTOCOL) Stop: 12/31/17 16:01 Last Titration: 11/03/17 16:31 Dose: 0 mcg/min, 0 mls/hr Lactobacillus Rhamnosus (Culturelle 15b) 1 each PO DAILY [facility] Stop: 01/01/18 13:59 Last Admin: 11/08/17 10:04 Dose: 1 each Levetiracetam (Keppra) 500 mg PO BID [facility] Stop: 12/31/17 08:59 Last Admin: 11/08/17 18:14 Dose: 500 mg Lorazepam (Ativan) 1 mg IVP Q6HR PRN; Protocol PRN Reason: Seizure Stop: 12/31/17 08:51 Last Admin: 11/03/17 12:04 Dose: 1 mg Mirtazapine (Remeron) 15 mg PO HS [facility]; Protocol Stop: 12/31/17 20:59 Last Admin: 11/07/17 20:56 Dose: 15 mg Miscellaneous (Probiotic Screen) 1 ea MC PRN PRN PRN Reason: PROTOCOL Stop: 01/01/18 12:28 Olanzapine (Zyprexa) 2.5 mg PO HS [facility]; Protocol Stop: 12/31/17 20:59 Last Admin: 11/07/17 20:57 Dose: 2.5 mg Pantoprazole Sodium (Protonix) 40 mg PO DAILY [facility] Stop: 12/31/17 08:59 Last Admin: 11/08/17 10:05 Dose: 40 mg Polyethylene Glycol (Miralax) 17 gm PO DAILY [facility] Stop: 12/31/17 12:59 Last Admin: 11/08/17 10:06 Dose: 17 gm Tamsulosin HCl (Flomax) 0.4 mg PO BID [facility] Stop: 12/31/17 08:59 Last Admin: 11/08/17 18:15 Dose: 0.4 mg General: no acute distress, well developed, well nourished HEENT: atraumatic, normocephalic, PERRLA, EOMI, moist mucous membrane Neck: supple, no thyromegaly, no lymphadenopathy Cardiovascular: S1S2, regular Lungs: clear to auscultation bilaterally, clear to percussion Abdomen: soft, no tender, no distended, no rebound Extremities: no cyanosis, no clubbing, no edema Neurological: awake, alert Skin: intact - Procedures Procedures: Procedures Procedure Code Date INSERTION OF INFUSION DEV INTO L SUBCLAV VEIN, PERC APPROACH [id number] 10/31/17 INSERTION OF INFUSION DEV INTO SUP VENA CAVA, PERC APPROACH [id number] 01/16/17 PERFORMANCE OF URINARY FILTRATION, <6 HRS/DAY [id number] 09/01/17 ULTRASONOGRAPHY OF LEFT SUBCLAVIAN VEIN, GUIDANCE [id number] 10/31/17 ULTRASONOGRAPHY OF SUPERIOR VENA CAVA, GUIDANCE [id number] 01/16/17 Infectious Disease Assmt/Plan - Problem List Patient Problems: All Active Problems HTN (hypertension) (Acute) I10 Hx of diabetes mellitus (Acute) Z86.39 Parkinson disease (Acute) G20 Septicemia (Acute) A41.9 infected cath (Acute) - Assessment Assessment: 1. Sepsis. Septic shock. Pneumonia versus line sepsis. Staph sepsis, 3/5 sets are positive 2. Pneumonia. 3. 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 4. Diabetes mellitus type 2. 5. Hypertension. - Plan Plan: Continue same management. Antibiotic-dang, vancomycin IV during HD. No permanent access at this time may wait for at least 6 weeks for any permanent access. Nutritional Asmnt/Malnutr-PDOC - Dietary Evaluation Malnutrition Findings (Please click <Entered> for more info): Nutritional Asmnt/Malnutrition Start: 11/02/17 16: 00 Text: Status: Complete Freq: Protocol: Document 11/02/17 16:02 LCDALLING (Rec: 11/02/17 16:14 LCDALLING [email or web address]) Nutritional Asmnt/Malnutrition Patient General Information Nutritional Screening High Risk Diagnosis sepsis, PNA Pertinent Medical Hx/Surgical Hx HTN, Dm, CVA, ESRD, dementia Subjective Information Pt seen resting in bed at time of visit. Pt is now on NPO for possible surgery. Per nurse note, pt had dialysis today. Pt is on Levophed noted . Current Diet Order/ Nutrition Support NPO Pertinent Medications lipitor, iron, folate, culturelle, remeron, levophed, protonix, piperacillin, miralax Pertinent Labs 11/02 BUN 34, Cr 5.0, glucose 112 11/01 Na 135, Cr 3.7, glucose 101 Nutritional Hx/Data Height 1.68 m Height (Calculated Centimeters) 167.6 Current Weight (lbs) 67.132 kg Weight (Calculated Kilograms) 67.1 Weight (Calculated Grams) 29375.7 [place] Body Weight 142 Body Mass Index (BMI) 23.8 Weight Status Approriate GI Symptoms GI Symptoms None Last BM no BM Difficult in: None Skin Integrity/Comment: opening above permacath site reddned to left arm Estimated Nutritional Goals BEE in Kcals: Using Current wt Calories/Kcals/Kg 27-32 Kcals Calculated 8143-0769 Protein: Using Current wt Protein g/k.2 Protein Calculated 80 Fluid: ml 1809-2144ml (1ml/kcal) Nutritional Problem 2. Problem Problem increased nutrition needs Etiology increased metabolic demand Signs/Symptoms: pt on dialysis and dx of sepsis, PNA 1. Problem Problem altered nutrition related labs Etiology hx of ESRD Signs/Symptoms: BUN 34, Cr 5.0, Intervention/Recommendation Comments 1. Monitor NPO status. Resume oral diet when medically appropriate. If PO intake <50% , will consider offer Nepro to increase nutrition itnake. 2. Monitor PO intake, wt, labs and skin integrity 3. F/U as hifh risk in 2-3 days, 11/04-11/05 Expected Outcomes/Goals Expected Outcomes/Goals 1. PO intake to meet at least 75% of nutritional needs. 2. Wt stability, skin to remain intact, labs to approach WNL.
[2017-11-08] MEDS: Atorvastatin Calcium 10 MG TAB PO SCH (21:28)
[2017-11-09 07:04] LABS: % BASOPHILS 1.3 % (0.0-2.0); % EOSINOPHILS 5.7 % (0.0-5.0); % LYMPHOCYTES 14.4 % (20.0-50.0); % MONOCYTES 11.4 % (2.0-10.0); % NEUTROPHILS 67.2 % (40.0-80.0); BASOPHILE ABSOLUTE 0.1 Th/cumm (0-0.2); EOSINOPHILE ABSOLUTE 0.4 Th/cmm (0.1-0.4); HEMATOCRIT 26.8 % (41.0-60); LYMPHOCYTE ABSOLUTE 0.9 Th/cmm (1.5-3.0); MEAN CELL VOLUME 93.5 fl (80-99); MEAN CORPUSCULAR HEMOGLOBIN 31.3 pg (27.0-31.0); MEAN CORPUSCULAR HGB CONC 33.4 pg (28.0-36.0); MEAN PLATELET VOLUME 6.6 fl; MONOCYTE ABSOLUTE 0.7 Th/cmm (0.3-1.0); NEUTROPHILE ABSOLUTE 4.3 Th/cmm (1.8-8.0); PLATELET COUNT 336 Th/cmm (150-400); RED BLOOD COUNT 2.87 Mil/cmm (3.80-5.80); RED CELL DISTRIBUTION WIDTH 12.9 % (11.5-20.0); WHITE BLOOD COUNT 6.4 Th/cmm (4.8-10.8)
[2017-11-09 07:10] LABS: ANION GAP 13.4 (7.0-16.0); BUN - UREA NITROGEN 24 mg/dL (7-25); CALCIUM SERUM 9.6 mg/dL (8.6-10.3); CARBON DIOXIDE 23.6 mEq/L (21.0-31.0); CHLORIDE 106 mEq/L (98-107); GLUCOSE 90 mg/dL (70-105); SODIUM SERUM 140 mEq/L (136-145)
[2017-11-09 07:38] LABS: CREATININE - SERUM 5.3 mg/dL (0.7-1.3)
[2017-11-09] MEDS: Pantoprazole 40 mg EC Tab PO SCH (09:31)
[2017-11-09] MEDS: Lactobacillus Rhamnosus GG 15 Billion CFU CAP.SPRINK PO SCH (09:32)
[2017-11-09] MEDS: Aspirin 81mg Chewable Tab PO SCH (09:32)
[2017-11-09] MEDS: Ferrous Sulfate 325 MG TAB PO SCH (09:32)
[2017-11-09] MEDS: POLYETHYLENE GLYCOL 3350 17 GM PACK PO SCH (09:33)
--- NOTE | 2017-11-09 13:26 | Infectious Disease Prog Note ---
Infectious Disease Subjective - Review of Systems Service Date: 11/09/17 Subjective: There is no new change. 3/5 Blood cultures grew MRSA. Infectious Disease Objective - Results Result Diagrams: 11/09/17 06:12 11/09/17 06:12 Recent Labs: Laboratory Last Values WBC 6.4 Th/cmm (4.8-10.8) 11/09/17 06:12 RBC 2.87 Mil/cmm (3.80-5.80) L 11/09/17 06:12 Hgb 9.0 gm/dL (12-16) L 11/09/17 06:12 Hct 26.8 % (41.0-60) L 11/09/17 06:12 MCV 93.5 fl (80-99) 11/09/17 06:12 MCH 31.3 pg (27.0-31.0) H 11/09/17 06:12 MCHC Differential 33.4 pg (28.0-36.0) 11/09/17 06:12 RDW 12.9 % (11.5-20.0) 11/09/17 06:12 Plt Count 336 Th/cmm (150-400) 11/09/17 06:12 MPV 6.6 fl 11/09/17 06:12 Add Manual Diff YES 11/01/17 06:04 Neutrophils % 67.2 % (40.0-80.0) 11/09/17 06:12 Band Neutrophils % 4 % (0-10) 11/01/17 06:04 Lymphocytes % 14.4 % (20.0-50.0) L 11/09/17 06:12 Monocytes % 11.4 % (2.0-10.0) H 11/09/17 06:12 Eosinophils % 5.7 % (0.0-5.0) H 11/09/17 06:12 Basophils % 1.3 % (0.0-2.0) 11/09/17 06:12 Neutrophils (Manual) 84 % (40-80) H 11/01/17 06:04 Lymphocytes 6 % (20-50) L 11/01/17 06:04 Monocytes 6 % (2-10) 11/01/17 06:04 Eosinophils 0 % (0-5) 11/01/17 06:04 Basophils 0 % (0-3) 11/01/17 06:04 PT 11.0 SECONDS (9.5-11.5) 10/31/17 21:40 INR 1.06 (0.5-1.4) 10/31/17 21:40 Sodium 140 mEq/L (136-145) 11/09/17 06:12 Potassium 3.0 mEq/L (3.5-5.1) L 11/09/17 06:12 Chloride 106 mEq/L (98-107) 11/09/17 06:12 Carbon Dioxide 23.6 mEq/L (21.0-31.0) 11/09/17 06:12 Anion Gap 13.4 (7.0-16.0) 11/09/17 06:12 BUN 24 mg/dL (7-25) 11/09/17 06:12 Creatinine 5.3 mg/dL (0.7-1.3) H* 11/09/17 06:12 Est GFR ( Amer) TNP 11/09/17 06:12 Est GFR (Non-Af Amer) TNP 11/09/17 06:12 BUN/Creatinine Ratio 4.5 11/09/17 06:12 Glucose 90 mg/dL (70-105) 11/09/17 06:12 Whole Bld Lactic Acid 1.36 mmol/L (0.60-1.99) 11/01/17 17:50 Calcium 9.6 mg/dL (8.6-10.3) 11/09/17 06:12 Magnesium 1.9 mg/dL (1.9-2.7) 11/05/17 05:00 Total Bilirubin 0.6 mg/dL (0.3-1.0) 10/31/17 21:40 AST 38 U/L (13-39) 10/31/17 21:40 ALT 31 U/L (7-52) 10/31/17 21:40 Alkaline Phosphatase 109 U/L (34-104) H 10/31/17 21:40 Troponin I 0.04 ng/mL (0.01-0.05) 10/31/17 21:40 B-Natriuretic Peptide 959.0 pg/mL (5.0-100.0) H 11/03/17 04:05 Total Protein 7.1 gm/dL (6.0-8.3) 10/31/17 21:40 Albumin 3.4 gm/dL (4.2-5.5) L 10/31/17 21:40 Globulin 3.7 gm/dL 10/31/17 21:40 Albumin/Globulin Ratio 0.9 (1.0-1.8) L 10/31/17 21:40 Triglycerides 78 mg/dL (<150) 11/01/17 06:04 Cholesterol 89 mg/dL (<200) 11/01/17 06:04 LDL Cholesterol Direct 39 mg/dL (75-193) L 11/01/17 06:04 HDL Cholesterol 33 mg/dL (23-92) 11/01/17 06:04 TSH 0.55 uIU/ml (0.34-5.60) 11/01/17 06:04 Random Vancomycin 20.7 ug/mL (5.0-40.0) 11/07/17 05:30 - Physical Exam Vitals and I&O: Vital Signs Temp 97.7 F 11/09/17 08:00 Pulse 82 11/09/17 08:00 Resp 18 11/09/17 08:00 BP 106/73 11/09/17 08:00 Pulse Ox 96 11/09/17 08:00 Intake & Output 11/08/17 11/09/17 11/09/17 18:59 06:59 18:59 Intake Total 240 Balance 240 Weight (lbs) 70.307 kg 68.039 kg Intake: Oral 240 Other: # Bowel Movements 0 Weight Source Bedscale Bedscale Active Medications: Current Medications Acetaminophen (Tylenol) 650 mg PO Q4H PRN PRN Reason: MILD PAIN 1-3/ FEVER ABOVE 101 Stop: 12/31/17 00:37 Last Admin: 11/03/17 04:49 Dose: 650 mg Aspirin (Aspirin Chewable) 81 mg PO DAILY [facility] Stop: 12/31/17 08:59 Last Admin: 11/09/17 09:32 Dose: 81 mg Atorvastatin Calcium (Lipitor) 10 mg PO HS [facility]; Protocol Stop: 12/31/17 20:59 Last Admin: 11/08/17 21:28 Dose: 10 mg Citalopram Hydrobromide (Celexa) 20 mg PO DAILY [facility]; Protocol Stop: 12/31/17 08:59 Last Admin: 11/09/17 09:32 Dose: 20 mg Donepezil HCl (Aricept) 5 mg PO DAILY [facility] Stop: 12/31/17 08:59 Last Admin: 11/09/17 09:32 Dose: 5 mg Ferrous Sulfate (Iron) 325 mg PO BID [facility] Stop: 12/31/17 08:59 Last Admin: 11/09/17 09:32 Dose: 325 mg Finasteride (Proscar) 5 mg PO DAILY [facility]; Protocol Stop: 12/31/17 08:59 Last Admin: 11/09/17 09:32 Dose: 5 mg Folic Acid (Folate) 1 mg PO DAILY [facility] Stop: 12/31/17 08:59 Last Admin: 11/09/17 09:32 Dose: 1 mg Norepinephrine Bitartrate 4 mg (/ Dextrose) 254 mls @ 0 mls/hr IV TITR PRN; Protocol PRN Reason: BP MAINTENANCE (PER PROTOCOL) Stop: 12/31/17 16:01 Last Titration: 11/03/17 16:31 Dose: 0 mcg/min, 0 mls/hr Potassium Chloride 30 meq/ (Sodium Chloride) 265 mls @ 88.333 mls/hr IV X1 [facility] Stop: 01/08/18 12:44 Lactobacillus Rhamnosus (Culturelle 15b) 1 each PO DAILY [facility] Stop: 01/01/18 13:59 Last Admin: 11/09/17 09:32 Dose: 1 each Levetiracetam (Keppra) 500 mg PO BID [facility] Stop: 12/31/17 08:59 Last Admin: 11/09/17 09:32 Dose: 500 mg Mirtazapine (Remeron) 15 mg PO HS [facility]; Protocol Stop: 12/31/17 20:59 Last Admin: 11/08/17 21:28 Dose: 15 mg Miscellaneous (Probiotic Screen) 1 ea MC PRN PRN PRN Reason: PROTOCOL Stop: 01/01/18 12:28 Miscellaneous (Vancomycin Iv Per Pharmacy) 1 ea MC PRN PRN PRN Reason: PROTOCOL Stop: 12/21/17 19:27 Olanzapine (Zyprexa) 2.5 mg PO HS [facility]; Protocol Stop: 12/31/17 20:59 Last Admin: 11/08/17 21:28 Dose: 2.5 mg Pantoprazole Sodium (Protonix) 40 mg PO DAILY [facility] Stop: 12/31/17 08:59 Last Admin: 11/09/17 09:31 Dose: 40 mg Polyethylene Glycol (Miralax) 17 gm PO DAILY [facility] Stop: 12/31/17 12:59 Last Admin: 11/09/17 09:33 Dose: 17 gm Tamsulosin HCl (Flomax) 0.4 mg PO BID [facility] Stop: 12/31/17 08:59 Last Admin: 11/09/17 09:32 Dose: 0.4 mg General: no acute distress, well developed, well nourished HEENT: atraumatic, normocephalic, PERRLA Neck: supple, no thyromegaly Cardiovascular: S1S2, regular Lungs: clear to auscultation bilaterally, clear to percussion Abdomen: soft, no tender, no distended Extremities: no cyanosis, no clubbing, no edema Neurological: awake, alert Skin: intact - Procedures Procedures: Procedures Procedure Code Date INSERTION OF INFUSION DEV INTO L SUBCLAV VEIN, PERC APPROACH 25Y586M 10/31/17 INSERTION OF INFUSION DEV INTO SUP VENA CAVA, PERC APPROACH [id number] 01/16/17 PERFORMANCE OF URINARY FILTRATION, <6 HRS/DAY [id number] 09/01/17 ULTRASONOGRAPHY OF LEFT SUBCLAVIAN VEIN, GUIDANCE [id number] 10/31/17 ULTRASONOGRAPHY OF SUPERIOR VENA CAVA, GUIDANCE [id number] 01/16/17 Infectious Disease Assmt/Plan - Assessment Assessment: 1. Sepsis. Septic shock. Pneumonia versus line sepsis. Staph sepsis, 3/5 sets are positive 2. Pneumonia. 3. 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 4. Diabetes mellitus type 2. 5. Hypertension. - Plan Plan: Continue same management. Antibiotic-dang, vancomycin IV during HD. No permanent access at this time may wait for at least 6 weeks for any permanent access. (end date: Nov) Nutritional Asmnt/Malnutr-PDOC - Dietary Evaluation Malnutrition Findings (Please click <Entered> for more info): Nutritional Asmnt/Malnutrition Start: 11/02/17 16: 00 Text: Status: Complete Freq: Protocol: Document 11/02/17 16:02 LCHENG (Rec: 11/02/17 16:14 LCDALLING [id number]) Nutritional Asmnt/Malnutrition Patient General Information Nutritional Screening High Risk Diagnosis sepsis, PNA Pertinent Medical Hx/Surgical Hx HTN, Dm, CVA, ESRD, dementia Subjective Information Pt seen resting in bed at time of visit. Pt is now on NPO for possible surgery. Per nurse note, pt had dialysis today. Pt is on Levophed noted . Current Diet Order/ Nutrition Support NPO Pertinent Medications lipitor, iron, folate, culturelle, remeron, levophed, protonix, piperacillin, miralax Pertinent Labs 11/02 BUN 34, Cr 5.0, glucose 112 / Na 135, Cr 3.7, glucose 101 Nutritional Hx/Data Height 1.68 m Height (Calculated Centimeters) 167.6 Current Weight (lbs) 67.132 kg Weight (Calculated Kilograms) 67.1 Weight (Calculated Grams) 97497.7 [place] Body Weight 142 Body Mass Index (BMI) 23.8 Weight Status Approriate GI Symptoms GI Symptoms None Last BM no BM Difficult in: None Skin Integrity/Comment: opening above permacath site reddned to left arm Estimated Nutritional Goals BEE in Kcals: Using Current wt Calories/Kcals/Kg 27-32 Kcals Calculated 3248-9841 Protein: Using Current wt Protein g/k.2 Protein Calculated 80 Fluid: ml 1809-2144ml (1ml/kcal) Nutritional Problem 2. Problem Problem increased nutrition needs Etiology increased metabolic demand Signs/Symptoms: pt on dialysis and dx of sepsis, PNA 1. Problem Problem altered nutrition related labs Etiology hx of ESRD Signs/Symptoms: BUN 34, Cr 5.0, Intervention/Recommendation Comments 1. Monitor NPO status. Resume oral diet when medically appropriate. If PO intake <50% , will consider offer Nepro to increase nutrition itnake. 2. Monitor PO intake, wt, labs and skin integrity 3. F/U as hifh risk in 2-3 days, 11/04-11/05 Expected Outcomes/Goals Expected Outcomes/Goals 1. PO intake to meet at least 75% of nutritional needs. 2. Wt stability, skin to remain intact, labs to approach WNL.
--- NOTE | 2017-11-09 14:19 | General Progress Note ---
Subjective - Review of Systems Service Date: 11/09/17 Subjective: more interactive, comfortable Objective - Results Result Diagrams: 11/09/17 06:12 11/09/17 06:12 Recent Labs: Laboratory Last Values WBC 6.4 Th/cmm (4.8-10.8) 11/09/17 06:12 RBC 2.87 Mil/cmm (3.80-5.80) L 11/09/17 06:12 Hgb 9.0 gm/dL (12-16) L 11/09/17 06:12 Hct 26.8 % (41.0-60) L 11/09/17 06:12 MCV 93.5 fl (80-99) 11/09/17 06:12 MCH 31.3 pg (27.0-31.0) H 11/09/17 06:12 MCHC Differential 33.4 pg (28.0-36.0) 11/09/17 06:12 RDW 12.9 % (11.5-20.0) 11/09/17 06:12 Plt Count 336 Th/cmm (150-400) 11/09/17 06:12 MPV 6.6 fl 11/09/17 06:12 Add Manual Diff YES 11/01/17 06:04 Neutrophils % 67.2 % (40.0-80.0) 11/09/17 06:12 Band Neutrophils % 4 % (0-10) 11/01/17 06:04 Lymphocytes % 14.4 % (20.0-50.0) L 11/09/17 06:12 Monocytes % 11.4 % (2.0-10.0) H 11/09/17 06:12 Eosinophils % 5.7 % (0.0-5.0) H 11/09/17 06:12 Basophils % 1.3 % (0.0-2.0) 11/09/17 06:12 Neutrophils (Manual) 84 % (40-80) H 11/01/17 06:04 Lymphocytes 6 % (20-50) L 11/01/17 06:04 Monocytes 6 % (2-10) 11/01/17 06:04 Eosinophils 0 % (0-5) 11/01/17 06:04 Basophils 0 % (0-3) 11/01/17 06:04 PT 11.0 SECONDS (9.5-11.5) 10/31/17 21:40 INR 1.06 (0.5-1.4) 10/31/17 21:40 Sodium 140 mEq/L (136-145) 11/09/17 06:12 Potassium 3.0 mEq/L (3.5-5.1) L 11/09/17 06:12 Chloride 106 mEq/L (98-107) 11/09/17 06:12 Carbon Dioxide 23.6 mEq/L (21.0-31.0) 11/09/17 06:12 Anion Gap 13.4 (7.0-16.0) 11/09/17 06:12 BUN 24 mg/dL (7-25) 11/09/17 06:12 Creatinine 5.3 mg/dL (0.7-1.3) H* 11/09/17 06:12 Est GFR ( Amer) TNP 11/09/17 06:12 Est GFR (Non-Af Amer) TNP 11/09/17 06:12 BUN/Creatinine Ratio 4.5 11/09/17 06:12 Glucose 90 mg/dL (70-105) 11/09/17 06:12 Whole Bld Lactic Acid 1.36 mmol/L (0.60-1.99) 11/01/17 17:50 Calcium 9.6 mg/dL (8.6-10.3) 11/09/17 06:12 Magnesium 1.9 mg/dL (1.9-2.7) 11/05/17 05:00 Total Bilirubin 0.6 mg/dL (0.3-1.0) 10/31/17 21:40 AST 38 U/L (13-39) 10/31/17 21:40 ALT 31 U/L (7-52) 10/31/17 21:40 Alkaline Phosphatase 109 U/L (34-104) H 10/31/17 21:40 Troponin I 0.04 ng/mL (0.01-0.05) 10/31/17 21:40 B-Natriuretic Peptide 959.0 pg/mL (5.0-100.0) H 11/03/17 04:05 Total Protein 7.1 gm/dL (6.0-8.3) 10/31/17 21:40 Albumin 3.4 gm/dL (4.2-5.5) L 10/31/17 21:40 Globulin 3.7 gm/dL 10/31/17 21:40 Albumin/Globulin Ratio 0.9 (1.0-1.8) L 10/31/17 21:40 Triglycerides 78 mg/dL (<150) 11/01/17 06:04 Cholesterol 89 mg/dL (<200) 11/01/17 06:04 LDL Cholesterol Direct 39 mg/dL (75-193) L 11/01/17 06:04 HDL Cholesterol 33 mg/dL (23-92) 11/01/17 06:04 TSH 0.55 uIU/ml (0.34-5.60) 11/01/17 06:04 Random Vancomycin 20.7 ug/mL (5.0-40.0) 11/07/17 05:30 - Physical Exam Vitals and I&O: Vital Signs Temp 99.3 F 11/09/17 14:04 Pulse 73 11/09/17 14:04 Resp 16 11/09/17 14:04 BP 115/72 11/09/17 14:04 Pulse Ox 95 11/09/17 14:04 Intake & Output 11/08/17 11/09/17 11/09/17 18:59 06:59 18:59 Intake Total 240 Balance 240 Weight (lbs) 70.307 kg 68.039 kg Intake: Oral 240 Other: # Bowel Movements 0 Weight Source Bedscale Bedscale Active Medications: Current Medications Acetaminophen (Tylenol) 650 mg PO Q4H PRN PRN Reason: MILD PAIN 1-3/ FEVER ABOVE 101 Stop: 12/31/17 00:37 Last Admin: 11/03/17 04:49 Dose: 650 mg Aspirin (Aspirin Chewable) 81 mg PO DAILY [facility] Stop: 12/31/17 08:59 Last Admin: 11/09/17 09:32 Dose: 81 mg Atorvastatin Calcium (Lipitor) 10 mg PO HS [facility]; Protocol Stop: 12/31/17 20:59 Last Admin: 11/08/17 21:28 Dose: 10 mg Citalopram Hydrobromide (Celexa) 20 mg PO DAILY [facility]; Protocol Stop: 12/31/17 08:59 Last Admin: 11/09/17 09:32 Dose: 20 mg Donepezil HCl (Aricept) 5 mg PO DAILY [facility] Stop: 12/31/17 08:59 Last Admin: 11/09/17 09:32 Dose: 5 mg Ferrous Sulfate (Iron) 325 mg PO BID [facility] Stop: 12/31/17 08:59 Last Admin: 11/09/17 09:32 Dose: 325 mg Finasteride (Proscar) 5 mg PO DAILY [facility]; Protocol Stop: 12/31/17 08:59 Last Admin: 11/09/17 09:32 Dose: 5 mg Folic Acid (Folate) 1 mg PO DAILY [facility] Stop: 12/31/17 08:59 Last Admin: 11/09/17 09:32 Dose: 1 mg Norepinephrine Bitartrate 4 mg (/ Dextrose) 254 mls @ 0 mls/hr IV TITR PRN; Protocol PRN Reason: BP MAINTENANCE (PER PROTOCOL) Stop: 12/31/17 16:01 Last Titration: 11/03/17 16:31 Dose: 0 mcg/min, 0 mls/hr Potassium Chloride 30 meq/ (Sodium Chloride) 265 mls @ 88.333 mls/hr IV X1 ONE Stop: 11/09/17 16:59 Last Admin: 11/09/17 13:56 Dose: 88.333 mls/hr Lactobacillus Rhamnosus (Culturelle 15b) 1 each PO DAILY [facility] Stop: 01/01/18 13:59 Last Admin: 11/09/17 09:32 Dose: 1 each Levetiracetam (Keppra) 500 mg PO BID [facility] Stop: 12/31/17 08:59 Last Admin: 11/09/17 09:32 Dose: 500 mg Mirtazapine (Remeron) 15 mg PO HS [facility]; Protocol Stop: 12/31/17 20:59 Last Admin: 11/08/17 21:28 Dose: 15 mg Miscellaneous (Probiotic Screen) 1 ea MC PRN PRN PRN Reason: PROTOCOL Stop: 01/01/18 12:28 Miscellaneous (Vancomycin Iv Per Pharmacy) 1 ea MC PRN PRN PRN Reason: PROTOCOL Stop: 12/21/17 19:27 Olanzapine (Zyprexa) 2.5 mg PO HS [facility]; Protocol Stop: 12/31/17 20:59 Last Admin: 11/08/17 21:28 Dose: 2.5 mg Pantoprazole Sodium (Protonix) 40 mg PO DAILY [facility] Stop: 12/31/17 08:59 Last Admin: 11/09/17 09:31 Dose: 40 mg Polyethylene Glycol (Miralax) 17 gm PO DAILY [facility] Stop: 12/31/17 12:59 Last Admin: 11/09/17 09:33 Dose: 17 gm Tamsulosin HCl (Flomax) 0.4 mg PO BID [facility] Stop: 12/31/17 08:59 Last Admin: 11/09/17 09:32 Dose: 0.4 mg General: Alert, No acute distress HEENT: Atraumatic, PERRLA, Mucous membr. moist/pink Neck: Supple, +2 carotid pulse wo bruit Cardiovascular: Regular rate, Normal S1, Normal S2 Lungs: Normal air movement Abdomen: Bowel sounds, Soft Extremities: no Edema Neurological: Sensation intact Skin: no Rash Psych/Mental Status: Mood NL - Procedures Procedures: Procedures Procedure Code Date INSERTION OF INFUSION DEV INTO L SUBCLAV VEIN, PERC APPROACH 35Q123F 10/31/17 INSERTION OF INFUSION DEV INTO SUP VENA CAVA, PERC APPROACH [id number] 01/16/17 PERFORMANCE OF URINARY FILTRATION, <6 HRS/DAY [id number] 09/01/17 ULTRASONOGRAPHY OF LEFT SUBCLAVIAN VEIN, GUIDANCE [id number] 10/31/17 ULTRASONOGRAPHY OF SUPERIOR VENA CAVA, GUIDANCE [id number] 01/16/17 Assessment/Plan - Problem List Patient Problems: All Active Problems HTN (hypertension) (Acute) I10 Hx of diabetes mellitus (Acute) Z86.39 Parkinson disease (Acute) G20 Septicemia (Acute) A41.9 infected cath (Acute) - Assessment Assessment: ESRD on HD MRSA septicemia 2/2 line infxn Shock: septic Constipation Ess Htn w/ CKD GERD Dyslipidemia MRSA nares - Plan Plan: Lab - Result Diagrams 11/02/17 04:10 11/02/17 04:10 Current Medications Acetaminophen (Tylenol) 650 mg PO Q4H PRN PRN Reason: MILD PAIN 1-3/ FEVER ABOVE 101 Stop: 12/31/17 00:37 Last Admin: 11/01/17 19:36 Dose: 650 mg Aspirin (Aspirin Chewable) 81 mg PO DAILY [facility] Stop: 12/31/17 08:59 Last Admin: 11/02/17 09:42 Dose: 81 mg Atorvastatin Calcium (Lipitor) 10 mg PO HS [facility]; Protocol Stop: 12/31/17 20:59 Last Admin: 11/01/17 20:58 Dose: 10 mg Citalopram Hydrobromide (Celexa) 20 mg PO DAILY [facility]; Protocol Stop: 12/31/17 08:59 Donepezil HCl (Aricept) 5 mg PO DAILY [facility] Stop: 12/31/17 08:59 Last Admin: 11/02/17 09:41 Dose: 5 mg Ferrous Sulfate (Iron) 325 mg PO BID [facility] Stop: 12/31/17 08:59 Last Admin: 11/02/17 09:43 Dose: 325 mg Finasteride (Proscar) 5 mg PO DAILY [facility]; Protocol Stop: 12/31/17 08:59 Last Admin: 11/02/17 09:47 Dose: 5 mg Folic Acid (Folate) 1 mg PO DAILY [facility] Stop: 12/31/17 08:59 Last Admin: 11/02/17 09:43 Dose: 1 mg Heparin Sodium (Porcine) (Heparin) 5,000 units HD PRN PRN PRN Reason: DIALYSIS PORTS Stop: 12/31/17 08:51 Piperacillin Sod/Tazobactam (Sod 2.25 gm/ Sodium Chloride) 50 mls @ 100 mls/hr IV Q8HR [facility] Stop: 12/31/17 04:59 Last Admin: 11/02/17 12:56 Dose: 100 mls/hr Norepinephrine Bitartrate 4 mg (/ Dextrose) 254 mls @ 0 mls/hr IV TITR PRN; Protocol PRN Reason: BP MAINTENANCE (PER PROTOCOL) Stop: 12/31/17 16:01 Last Titration: 11/02/17 06:18 Dose: 4 mcg/min, 15.24 mls/hr Lactobacillus Rhamnosus (Culturelle 15b) 1 each PO DAILY [facility] Stop: 01/01/18 13:59 Levetiracetam (Keppra) 500 mg PO BID [facility] Stop: 12/31/17 08:59 Last Admin: 11/02/17 09:41 Dose: 500 mg Lorazepam (Ativan) 1 mg IVP Q6HR PRN; Protocol PRN Reason: Seizure Stop: 12/31/17 08:51 Last Admin: 11/01/17 18:24 Dose: 1 mg Mirtazapine (Remeron) 15 mg PO HS [facility]; Protocol Stop: 12/31/17 20:59 Miscellaneous (Vancomycin Iv Per Pharmacy) 1 ea MC PRN PRN PRN Reason: PROTOCOL Stop: 12/31/17 01:03 Miscellaneous (Probiotic Screen) 1 ea PRN PRN PRN Reason: PROTOCOL Stop: 01/01/18 12:28 Mupirocin (Bactroban Oint) 1 appl NS BID [facility] Stop: 11/07/17 09:01 Olanzapine (Zyprexa) 2.5 mg PO HS [facility]; Protocol Stop: 12/31/17 20:59 Pantoprazole Sodium (Protonix) 40 mg PO DAILY [facility] Stop: 12/31/17 08:59 Last Admin: 11/02/17 09:41 Dose: 40 mg Polyethylene Glycol (Miralax) 17 gm PO DAILY [facility] Stop: 12/31/17 12:59 Last Admin: 11/02/17 09:41 Dose: 17 gm Tamsulosin HCl (Flomax) 0.4 mg PO BID [facility] Stop: 12/31/17 08:59 Last Admin: 11/02/17 09:41 Dose: 0.4 m Lab - Result Diagrams 11/04/17 06:30 11/05/17 05:00 BC grew MRSA pt. was dialyzed yesterday & tolerated it well consider DC zosyn & continue Vanco on Zosyn off Levo f/u electrolytes, cbc Nutritional Asmnt/Malnutr-PDOC - Dietary Evaluation Malnutrition Findings (Please click <Entered> for more info): Nutritional Asmnt/Malnutrition Start: 11/02/17 16: 00 Text: Status: Complete Freq: Protocol: Document 11/02/17 16:02 CARMEN (Rec: 11/02/17 16:14 CRYSTAL [id number]) Nutritional Asmnt/Malnutrition Patient General Information Nutritional Screening High Risk Diagnosis sepsis, PNA Pertinent Medical Hx/Surgical Hx HTN, Dm, CVA, ESRD, dementia Subjective Information Pt seen resting in bed at time of visit. Pt is now on NPO for possible surgery. Per nurse note, pt had dialysis today. Pt is on Levophed noted . Current Diet Order/ Nutrition Support NPO Pertinent Medications lipitor, iron, folate, culturelle, remeron, levophed, protonix, piperacillin, miralax Pertinent Labs 11/02 BUN 34, Cr 5.0, glucose 112 11/01 Na 135, Cr 3.7, glucose 101 Nutritional Hx/Data Height 1.68 m Height (Calculated Centimeters) 167.6 Current Weight (lbs) 67.132 kg Weight (Calculated Kilograms) 67.1 Weight (Calculated Grams) 37635.7 [place] Body Weight 142 Body Mass Index (BMI) 23.8 Weight Status Approriate GI Symptoms GI Symptoms None Last BM no BM Difficult in: None Skin Integrity/Comment: opening above permacath site reddned to left arm Estimated Nutritional Goals BEE in Kcals: Using Current wt Calories/Kcals/Kg 27-32 Kcals Calculated 2150-9403 Protein: Using Current wt Protein g/k.2 Protein Calculated 80 Fluid: ml 1809-2144ml (1ml/kcal) Nutritional Problem 2. Problem Problem increased nutrition needs Etiology increased metabolic demand Signs/Symptoms: pt on dialysis and dx of sepsis, PNA 1. Problem Problem altered nutrition related labs Etiology hx of ESRD Signs/Symptoms: BUN 34, Cr 5.0, Intervention/Recommendation Comments 1. Monitor NPO status. Resume oral diet when medically appropriate. If PO intake <50% , will consider offer Nepro to increase nutrition itnake. 2. Monitor PO intake, wt, labs and skin integrity 3. F/U as hifh risk in 2-3 days, 11/04-11/05 Expected Outcomes/Goals Expected Outcomes/Goals 1. PO intake to meet at least 75% of nutritional needs. 2. Wt stability, skin to remain intact, labs to approach WNL.
--- NOTE | 2017-11-09 16:02 | General Progress Note ---
Subjective - Review of Systems Events since last encounter: more awake comfortable Subjective: as per order sheet will monitor Objective - Results Result Diagrams: 11/09/17 06:12 11/09/17 06:12 Recent Labs: Laboratory Last Values WBC 6.4 Th/cmm (4.8-10.8) 11/09/17 06:12 RBC 2.87 Mil/cmm (3.80-5.80) L 11/09/17 06:12 Hgb 9.0 gm/dL (12-16) L 11/09/17 06:12 Hct 26.8 % (41.0-60) L 11/09/17 06:12 MCV 93.5 fl (80-99) 11/09/17 06:12 MCH 31.3 pg (27.0-31.0) H 11/09/17 06:12 MCHC Differential 33.4 pg (28.0-36.0) 11/09/17 06:12 RDW 12.9 % (11.5-20.0) 11/09/17 06:12 Plt Count 336 Th/cmm (150-400) 11/09/17 06:12 MPV 6.6 fl 11/09/17 06:12 Add Manual Diff YES 11/01/17 06:04 Neutrophils % 67.2 % (40.0-80.0) 11/09/17 06:12 Band Neutrophils % 4 % (0-10) 11/01/17 06:04 Lymphocytes % 14.4 % (20.0-50.0) L 11/09/17 06:12 Monocytes % 11.4 % (2.0-10.0) H 11/09/17 06:12 Eosinophils % 5.7 % (0.0-5.0) H 11/09/17 06:12 Basophils % 1.3 % (0.0-2.0) 11/09/17 06:12 Neutrophils (Manual) 84 % (40-80) H 11/01/17 06:04 Lymphocytes 6 % (20-50) L 11/01/17 06:04 Monocytes 6 % (2-10) 11/01/17 06:04 Eosinophils 0 % (0-5) 11/01/17 06:04 Basophils 0 % (0-3) 11/01/17 06:04 PT 11.0 SECONDS (9.5-11.5) 10/31/17 21:40 INR 1.06 (0.5-1.4) 10/31/17 21:40 Sodium 140 mEq/L (136-145) 11/09/17 06:12 Potassium 3.0 mEq/L (3.5-5.1) L 11/09/17 06:12 Chloride 106 mEq/L (98-107) 11/09/17 06:12 Carbon Dioxide 23.6 mEq/L (21.0-31.0) 11/09/17 06:12 Anion Gap 13.4 (7.0-16.0) 11/09/17 06:12 BUN 24 mg/dL (7-25) 11/09/17 06:12 Creatinine 5.3 mg/dL (0.7-1.3) H* 11/09/17 06:12 Est GFR ( Amer) TNP 11/09/17 06:12 Est GFR (Non-Af Amer) TNP 11/09/17 06:12 BUN/Creatinine Ratio 4.5 11/09/17 06:12 Glucose 90 mg/dL (70-105) 11/09/17 06:12 Whole Bld Lactic Acid 1.36 mmol/L (0.60-1.99) 11/01/17 17:50 Calcium 9.6 mg/dL (8.6-10.3) 11/09/17 06:12 Magnesium 1.9 mg/dL (1.9-2.7) 11/05/17 05:00 Total Bilirubin 0.6 mg/dL (0.3-1.0) 10/31/17 21:40 AST 38 U/L (13-39) 10/31/17 21:40 ALT 31 U/L (7-52) 10/31/17 21:40 Alkaline Phosphatase 109 U/L (34-104) H 10/31/17 21:40 Troponin I 0.04 ng/mL (0.01-0.05) 10/31/17 21:40 B-Natriuretic Peptide 959.0 pg/mL (5.0-100.0) H 11/03/17 04:05 Total Protein 7.1 gm/dL (6.0-8.3) 10/31/17 21:40 Albumin 3.4 gm/dL (4.2-5.5) L 10/31/17 21:40 Globulin 3.7 gm/dL 10/31/17 21:40 Albumin/Globulin Ratio 0.9 (1.0-1.8) L 10/31/17 21:40 Triglycerides 78 mg/dL (<150) 11/01/17 06:04 Cholesterol 89 mg/dL (<200) 11/01/17 06:04 LDL Cholesterol Direct 39 mg/dL (75-193) L 11/01/17 06:04 HDL Cholesterol 33 mg/dL (23-92) 11/01/17 06:04 TSH 0.55 uIU/ml (0.34-5.60) 11/01/17 06:04 Random Vancomycin 20.7 ug/mL (5.0-40.0) 11/07/17 05:30 - Physical Exam Vitals and I&O: Vital Signs Temp 100.1 F 11/09/17 15:21 Pulse 90 11/09/17 15:21 Resp 18 11/09/17 15:21 BP 119/77 11/09/17 15:21 Pulse Ox 96 11/09/17 15:21 Intake & Output 11/08/17 11/09/17 11/09/17 18:59 06:59 18:59 Intake Total 240 Balance 240 Weight (lbs) 70.307 kg 68.039 kg Intake: Oral 240 Other: # Bowel Movements 0 Weight Source Bedscale Bedscale Active Medications: Current Medications Acetaminophen (Tylenol) 650 mg PO Q4H PRN PRN Reason: MILD PAIN 1-3/ FEVER ABOVE 101 Stop: 12/31/17 00:37 Last Admin: 11/03/17 04:49 Dose: 650 mg Aspirin (Aspirin Chewable) 81 mg PO DAILY [facility] Stop: 12/31/17 08:59 Last Admin: 11/09/17 09:32 Dose: 81 mg Atorvastatin Calcium (Lipitor) 10 mg PO HS [facility]; Protocol Stop: 12/31/17 20:59 Last Admin: 11/08/17 21:28 Dose: 10 mg Citalopram Hydrobromide (Celexa) 20 mg PO DAILY [facility]; Protocol Stop: 12/31/17 08:59 Last Admin: 11/09/17 09:32 Dose: 20 mg Donepezil HCl (Aricept) 5 mg PO DAILY [facility] Stop: 12/31/17 08:59 Last Admin: 11/09/17 09:32 Dose: 5 mg Ferrous Sulfate (Iron) 325 mg PO BID [facility] Stop: 12/31/17 08:59 Last Admin: 11/09/17 09:32 Dose: 325 mg Finasteride (Proscar) 5 mg PO DAILY [facility]; Protocol Stop: 12/31/17 08:59 Last Admin: 11/09/17 09:32 Dose: 5 mg Folic Acid (Folate) 1 mg PO DAILY [facility] Stop: 12/31/17 08:59 Last Admin: 11/09/17 09:32 Dose: 1 mg Norepinephrine Bitartrate 4 mg (/ Dextrose) 254 mls @ 0 mls/hr IV TITR PRN; Protocol PRN Reason: BP MAINTENANCE (PER PROTOCOL) Stop: 12/31/17 16:01 Last Titration: 11/03/17 16:31 Dose: 0 mcg/min, 0 mls/hr Potassium Chloride 30 meq/ (Sodium Chloride) 265 mls @ 88.333 mls/hr IV X1 ONE Stop: 11/09/17 16:59 Last Admin: 11/09/17 13:56 Dose: 88.333 mls/hr Lactobacillus Rhamnosus (Culturelle 15b) 1 each PO DAILY [facility] Stop: 01/01/18 13:59 Last Admin: 11/09/17 09:32 Dose: 1 each Levetiracetam (Keppra) 500 mg PO BID [facility] Stop: 12/31/17 08:59 Last Admin: 11/09/17 09:32 Dose: 500 mg Mirtazapine (Remeron) 15 mg PO HS [facility]; Protocol Stop: 12/31/17 20:59 Last Admin: 11/08/17 21:28 Dose: 15 mg Miscellaneous (Probiotic Screen) 1 ea MC PRN PRN PRN Reason: PROTOCOL Stop: 01/01/18 12:28 Miscellaneous (Vancomycin Iv Per Pharmacy) 1 ea MC PRN PRN PRN Reason: PROTOCOL Stop: 12/21/17 19:27 Olanzapine (Zyprexa) 2.5 mg PO HS [facility]; Protocol Stop: 12/31/17 20:59 Last Admin: 11/08/17 21:28 Dose: 2.5 mg Pantoprazole Sodium (Protonix) 40 mg PO DAILY [facility] Stop: 12/31/17 08:59 Last Admin: 11/09/17 09:31 Dose: 40 mg Polyethylene Glycol (Miralax) 17 gm PO DAILY [facility] Stop: 12/31/17 12:59 Last Admin: 11/09/17 09:33 Dose: 17 gm Tamsulosin HCl (Flomax) 0.4 mg PO BID [facility] Stop: 12/31/17 08:59 Last Admin: 11/09/17 09:32 Dose: 0.4 mg General: Alert, No acute distress HEENT: Atraumatic, PERRLA, Mucous membr. moist/pink Neck: Supple, +2 carotid pulse wo bruit Cardiovascular: Regular rate, Normal S1, Normal S2 Lungs: Normal air movement Abdomen: Bowel sounds, Soft Extremities: no Edema Neurological: Sensation intact Skin: no Rash Psych/Mental Status: Mood NL - Procedures Procedures: Procedures Procedure Code Date INSERTION OF INFUSION DEV INTO L SUBCLAV VEIN, PERC APPROACH [id number] 10/31/17 INSERTION OF INFUSION DEV INTO SUP VENA CAVA, PERC APPROACH [id number] 01/16/17 PERFORMANCE OF URINARY FILTRATION, <6 HRS/DAY [id number] 09/01/17 ULTRASONOGRAPHY OF LEFT SUBCLAVIAN VEIN, GUIDANCE [id number] 10/31/17 ULTRASONOGRAPHY OF SUPERIOR VENA CAVA, GUIDANCE [id number] 01/16/17 Assessment/Plan - Problem List Patient Problems: All Active Problems HTN (hypertension) (Acute) I10 Hx of diabetes mellitus (Acute) Z86.39 Parkinson disease (Acute) G20 Septicemia (Acute) A41.9 infected cath (Acute) Nutritional Asmnt/Malnutr-PDOC - Dietary Evaluation Malnutrition Findings (Please click <Entered> for more info): Nutritional Asmnt/Malnutrition Start: 11/02/17 16: 00 Text: Status: Complete Freq: Protocol: Document 11/02/17 16:02 LCHENG (Rec: 11/02/17 16:14 LCDALLING [id number]) Nutritional Asmnt/Malnutrition Patient General Information Nutritional Screening High Risk Diagnosis sepsis, PNA Pertinent Medical Hx/Surgical Hx HTN, Dm, CVA, ESRD, dementia Subjective Information Pt seen resting in bed at time of visit. Pt is now on NPO for possible surgery. Per nurse note, pt had dialysis today. Pt is on Levophed noted . Current Diet Order/ Nutrition Support NPO Pertinent Medications lipitor, iron, folate, culturelle, remeron, levophed, protonix, piperacillin, miralax Pertinent Labs 11/02 BUN 34, Cr 5.0, glucose 112 /9 Na 135, Cr 3.7, glucose 101 Nutritional Hx/Data Height 1.68 m Height (Calculated Centimeters) 167.6 Current Weight (lbs) 67.132 kg Weight (Calculated Kilograms) 67.1 Weight (Calculated Grams) 07004.7 [place] Body Weight 142 Body Mass Index (BMI) 23.8 Weight Status Approriate GI Symptoms GI Symptoms None Last BM no BM Difficult in: None Skin Integrity/Comment: opening above permacath site reddned to left arm Estimated Nutritional Goals BEE in Kcals: Using Current wt Calories/Kcals/Kg 27-32 Kcals Calculated 5011-7774 Protein: Using Current wt Protein g/k.2 Protein Calculated 80 Fluid: ml 1809-2144ml (1ml/kcal) Nutritional Problem 2. Problem Problem increased nutrition needs Etiology increased metabolic demand Signs/Symptoms: pt on dialysis and dx of sepsis, PNA 1. Problem Problem altered nutrition related labs Etiology hx of ESRD Signs/Symptoms: BUN 34, Cr 5.0, Intervention/Recommendation Comments 1. Monitor NPO status. Resume oral diet when medically appropriate. If PO intake <50% , will consider offer Nepro to increase nutrition itnake. 2. Monitor PO intake, wt, labs and skin integrity 3. F/U as hifh risk in 2-3 days, 11/04-11/05 Expected Outcomes/Goals Expected Outcomes/Goals 1. PO intake to meet at least 75% of nutritional needs. 2. Wt stability, skin to remain intact, labs to approach WNL.
--- NOTE | 2017-11-16 17:41 | Discharge Summary ---
DATE OF DISCHARGE: 11/09/2017 HOSPITAL COURSE: The patient was admitted to [facility] for sepsis, septic shock on 10/31/2017 and was discharged to ____ [facility] on 11/09/2017. This patient is well known to me. The patient is known to have a history of peripheral vascular disease, history of stroke with right hemiparesis, history of CVA, history of end-stage renal disease, history of hypertension and diabetes, and history of dementia. The patient is admitted with ____ infection, sepsis, septic shock, was treated for all of that and the patient's catheter was taken out ____, diabetes, hypertension and CVA was made. The patient was sent to [facility] for continuation of care . CONDITION AT THE TIME OF DISCHARGE: Stable. JOB# [id number]
== END 2017-11-09 17:00 | DRG 314 ==
LOC: ER 21:02 → TELE 23:10 → ICU 11-01 15:00 → TELE 11-07 19:24
PROVIDERS: ADMIT Internal Medicine; ATTEND Internal Medicine
PROC: 5A1D70Z Performance of Urinary Filtration, Intermittent, Less than 6 Hours Per Day (ICD-10-PCS; 2017-11-02)
PROC: 05PYX3Z Removal of Infusion Device from Upper Vein, External Approach (ICD-10-PCS; 2017-11-03)
PROC: 02HV33Z Insertion of Infusion Device into Superior Vena Cava, Percutaneous Approach (ICD-10-PCS; principal; 2017-11-05)
PROC: B548ZZA Ultrasonography of Superior Vena Cava, Guidance (ICD-10-PCS; 2017-11-05)
PROC: 5A1D70Z Performance of Urinary Filtration, Intermittent, Less than 6 Hours Per Day (ICD-10-PCS; 2017-11-05)
PROC: 5A1D70Z Performance of Urinary Filtration, Intermittent, Less than 6 Hours Per Day (ICD-10-PCS; 2017-11-07)
DX: T82.7XXA Infection and inflammatory reaction due to other cardiac and vascular devices, implants and grafts, initial encounter (principal); N18.6 End stage renal disease; R65.21 Severe sepsis with septic shock; J18.1 Lobar pneumonia, unspecified organism; A41.02 Sepsis due to Methicillin resistant Staphylococcus aureus; J90 Pleural effusion, not elsewhere classified; I69.951 Hemiplegia and hemiparesis following unspecified cerebrovascular disease affecting right dominant side; I12.0 Hypertensive chronic kidney disease with stage 5 chronic kidney disease or end stage renal disease; I47.1 Supraventricular tachycardia; I71.4 Abdominal aortic aneurysm, without rupture; Z66 Do not resuscitate; E11.22 Type 2 diabetes mellitus with diabetic chronic kidney disease; F32.9 Major depressive disorder, single episode, unspecified; N28.1 Cyst of kidney, acquired; K75.3 Granulomatous hepatitis, not elsewhere classified; N20.0 Calculus of kidney; N40.0 Benign prostatic hyperplasia without lower urinary tract symptoms; K21.9 Gastro-esophageal reflux disease without esophagitis; E11.42 Type 2 diabetes mellitus with diabetic polyneuropathy; K59.00 Constipation, unspecified; G20 Parkinson's disease; F02.80 Dementia in other diseases classified elsewhere, unspecified severity, without behavioral disturbance, psychotic disturbance, mood disturbance, and anxiety; Y83.8 Other surgical procedures as the cause of abnormal reaction of the patient, or of later complication, without mention of misadventure at the time of the procedure; Y92.89 Other specified places as the place of occurrence of the external cause; Z79.82 Long term (current) use of aspirin; Z99.2 Dependence on renal dialysis
CPT/HCPCS: 36415-UA; 70450-TC; 71045-TC; 80048-TC; 80053-TC; 80061-TC; 80202-TC; 83605; 83735-TC; 83880-TC; 84443-TC; 84484-TC; 85007-TC; 85025-TC; 85610-TC; 87070-90; 90937; 93005; 94760; J0696; J1580; J1644; J2001; J2060; J2543; J3370; J3480; P9046; X6452; Z7610

== ENCOUNTER 2018-01-17 10:08 | Emergency (ER) | payer MEDICARE, BC ==
--- NOTE | 2018-01-17 10:43 | ED Physician Chart ---
ED Chief Complaint/HPI - Patient Information Date Seen:: 01/17/18 Time Seen:: 10:14 Chief Complaint:: pulled out Nitin History of Present Illness:: pulled out Nitin Allergies:: Allergies Allergy/AdvReac Type Severity Reaction Status Date / Time No Known Allergies Allergy Verified 10/31/17 21:13 Vitals:: Vital Signs - 8 hr 01/17/18 01/17/18 10:14 10:29 Temp 98.1 F 98.0 F HR 67 65 RR 23 20 BP 135/73 124/71 O2 Sat % 100 97 Historian:: Patient Review:: Nurse's Note Reviewed, Transfer documents Reviewed ED Review of Systems - Review of Systems General/Constitutional: No fever, No chills, No weight loss, No weakness, No diaphoresis, No edema, No loss of appetite Skin: No skin lesions, No rash, No bruising Head: No headache, No light-headedness Eyes: No loss of vision, No pain, No diplopia ENT: No earache, No nasal drainage, No sore throat, No tinnitus Neck: No neck pain, No swelling, No thyromegaly, No stiffness, No mass noted Cardio Vascular: No chest pain, No palpitations, No PND, No orthopnea, No edema Pulmonary: No SOB, No cough, No sputum, No wheezing GI: No nausea, No vomiting, No diarrhea, No pain, No melena, No hematochezia, No constipation, No hematemesis G/U: No dysuria, No frequency, No hematuria, Other (decreased urination (on dialysis)) Musculoskeletal: No bone or joint pain, No back pain, No muscle pain Endocrine: No polyuria, No polydipsia Psychiatric: No prior psych history, No depression, No anxiety, No suicidal ideation Hematopoietic: No bruising, No lymphadenopathy Allergic/Immuno: No urticaria, No angioedema Neurological: No syncope, No focal symptoms, No weakness, No paresthesia, No headache, No seizure, No dizziness, No confusion, No vertigo ED Past Medical History - Past Medical History Obtainable: No Past Medical History: ESRD, Other (on dialysis) Surgical History: other (nitin catheter; RUE AV fistula for dialysis) Family Medical History - Family Member Mother History Unknown: Yes Ethnicity: Non- Living Status: ED Physical Exam - Physical Examination General/Constitutional: Awake, Well-developed, well-nourished, Alert, No distress, Non-toxic appearing, Ambulatory Other Gen/Cons comments:: thin, chronically ill appearing Head: Atraumatic Eyes: Lids, conjuctiva normal, PERRL, EOMI Other Skin comments:: Right upper chest with intact suture from where Nitin catheter used to be. RUE with [place] fistula with a thrill and evidence of blood in two areas where the patient was recently accessed. ENMT: External ears, nose nl Neck: Nontender, No nuchal rigidity, No stridor Respiratory: Nl effort/Exclusion Other Respiratory comments:: decreased breath sounds at bases Cardio Vascular: RRR, No murmur, gallop, rubs, NL S1 S2 GI: No tenderness/rebounding/guarding, No organomegaly, No hernia, Normal BS's, Nondistended, No mass/bruits, No McBurney tenderness Other Neuro/Psych comments:: RUE contracture ED Assessment - Assessment General Assessment: spoke to Dr. Myrick to see if he wanted anything special to replace it. I called him before lab work returned so as to prevent him from having to go back and forth to our facility since I WAS MISINFORMED BY Rose CHAMORRO that Dr. Myrick was at the hospital right now on the [facility]. portable CXR: no pneumothorax. No remnants of Nitin catheter left inside patient. inspected the Nitin catheter which appears to have been fully removed from the patient. spoke to facility [facility] to find out why the RUE has 2 fresh blood tafoya over the AV fistula and to verify that the AV fistula was being used. Keke wasn't sure. THEREFORE, I CALLED [facility]ASK[facility] that performs his dialysis: spoke to Regan Szymanski who called the clinical coordinator, Vick Sullivan, who said that there is no reason to replace the Nitin. SPOKE TO NURSE REGAN APARICIO CALLED THE CLINICAL COORDINATOR, DANY SULLIVAN, WHO SAID THAT THERE IS NO REASON TO REPLACE THE NITIN CATHETER SINCE THEY ARE ACCESSING THE RIGHT UPPER EXTREMITY AV FISTULA. ED Septic Shock - . Is Septic Shock (SBP<90, OR Lactate>4 mmol\L) present?: No - <6hrs of presentation: Vital Signs: Vital Signs - 8 hr 01/17/18 01/17/18 10:14 10:29 Temp 98.1 F 98.0 F HR 67 65 RR 23 20 BP 135/73 124/71 O2 Sat % 100 97 ED Reassessment (Disposition) - Reassessment Reassessment Condition:: Unchanged - Diagnosis Diagnosis:: pulled out Nitin catheter - Aftercare/Follow up Instructions Aftercare/Follow-Up Instructions:: Refer to Discharge Instructions Notes:: SPOKE TO [facility] HASKINS, NURSE REGAN CALLED THE CLINICAL COORDINATOR, DANY SULLIVAN, WHO SAID THAT THERE IS NO REASON TO REPLACE THE NITIN CATHETER SINCE THEY ARE ACCESSING THE RIGHT UPPER EXTREMITY AV FISTULA. - Patient Disposition Discharge/Transfer:: Longterm Care - SNF Condition at Disposition:: Stable, Unchanged
[2018-01-17 10:45] LABS: % EOSINOPHILS 6.5 % (0.0-5.0); % LYMPHOCYTES 27.5 % (20.0-50.0); % MONOCYTES 8.9 % (2.0-10.0); % NEUTROPHILS 55.1 % (40.0-80.0); BASOPHILE ABSOLUTE 0.1 Th/cumm (0-0.2); EOSINOPHILE ABSOLUTE 0.3 Th/cmm (0.1-0.4); HEMATOCRIT 33.1 % (41.0-60); HEMOGLOBIN 11.1 gm/dL (12-16); LYMPHOCYTE ABSOLUTE 1.1 Th/cmm (1.5-3.0); MEAN CELL VOLUME 94.1 fl (80-99); MEAN CORPUSCULAR HEMOGLOBIN 31.5 pg (27.0-31.0); MEAN CORPUSCULAR HGB CONC 33.5 pg (28.0-36.0); MONOCYTE ABSOLUTE 0.4 Th/cmm (0.3-1.0); NEUTROPHILE ABSOLUTE 2.2 Th/cmm (1.8-8.0); PLATELET COUNT 267 Th/cmm (150-400); RED BLOOD COUNT 3.52 Mil/cmm (3.80-5.80); RED CELL DISTRIBUTION WIDTH 14.2 % (11.5-20.0); WHITE BLOOD COUNT 4.1 Th/cmm (4.8-10.8)
--- NOTE | 2018-01-17 10:46 | Diagnostic Imaging Report ---
Portable chest x-ray Time: 1040 History: Pneumothorax Allowing for portable technique the heart size is normal. No focal pulmonary parenchymal processes. No hilar or mediastinal abnormalities. No evidence for pneumothorax. Impression: No acute abnormalities.
[2018-01-17] MEDS ORDERED: Bacitracin pkt 1 gm Pkt TP ONE (10:48)
[2018-01-17 10:52] LABS: ALBUMIN 3.9 gm/dL (4.2-5.5); ALKALINE PHOSPHATASE 123 U/L (34-104); ANION GAP 14.8 (7.0-16.0); BILIRUBIN,TOTAL 0.4 mg/dL (0.3-1.0); BUN - UREA NITROGEN 21 mg/dL (7-25); CALCIUM SERUM 10.3 mg/dL (8.6-10.3); CARBON DIOXIDE 29.6 mEq/L (21.0-31.0); CHLORIDE 97 mEq/L (98-107); GLUCOSE 96 mg/dL (70-105); MAGNESIUM 2.1 mg/dL (1.9-2.7); PHOSPHOROUS 2.2 mg/dL (2.5-5.0); POTASSIUM SERUM 4.4 mEq/L (3.5-5.1); SGOT 14 U/L (13-39); SGPT/ALT 9 U/L (7-52); SODIUM SERUM 137 mEq/L (136-145); TOTAL PROTEIN,SERUM 7.7 gm/dL (6.0-8.3)
[2018-01-17 11:09] LABS: CREATININE - SERUM 4.4 mg/dL (0.7-1.3)
== END 2018-01-17 13:42 | disposition home or self-care (01) ==
LOC: ER 10:08
DX: T82.49XA Other complication of vascular dialysis catheter, initial encounter (principal); N18.6 End stage renal disease; Z99.2 Dependence on renal dialysis; Y92.89 Other specified places as the place of occurrence of the external cause
CPT/HCPCS: 36415-UA; 71045-TC; 80053-TC; 83735-TC; 84100-TC; 85025-TC; Z7502

== ENCOUNTER 2018-06-10 14:23 | Inpatient (IN) | payer MEDICARE, BC ==
--- NOTE | 2018-06-10 14:31 | ED Physician Chart ---
ED Chief Complaint/HPI - Patient Information Date Seen:: 06/10/18 Time Seen:: 14:15 Chief Complaint:: clotted dialysis shunt History of Present Illness:: Patient reportedly receives dialysis on Thursday. Dialysis could not be done today because of a clotted dialysis catheter. Patient is also had cough and congestion for an unspecified length of time. Patient is an unreliable historian as he is confused stating the year is 1969. Allergies:: Allergies Allergy/AdvReac Type Severity Reaction Status Date / Time No Known Allergies Allergy Verified 10/31/17 21:13 Historian:: Patient, EMS Review:: Nurse's Note Reviewed ED Review of Systems - Review of Systems General/Constitutional: No fever, No chills, No weight loss, No weakness, No diaphoresis, No edema, No loss of appetite Skin: No skin lesions, No rash, No bruising Head: No headache, No light-headedness Eyes: No loss of vision, No pain, No diplopia ENT: No earache, No nasal drainage, No sore throat, No tinnitus Neck: No neck pain, No swelling, No thyromegaly, No stiffness, No mass noted Cardio Vascular: No chest pain, No palpitations, No PND, No orthopnea, No edema Pulmonary: No SOB, No cough, No sputum, No wheezing GI: No nausea, No vomiting, No diarrhea, No pain, No melena, No hematochezia, No constipation, No hematemesis G/U: No dysuria, No frequency, No hematuria Musculoskeletal: No bone or joint pain, No back pain, No muscle pain Endocrine: No polyuria, No polydipsia Psychiatric: Prior psych history, Other (present history dementia) Hematopoietic: No bruising Allergic/Immuno: No urticaria Neurological: No syncope ED Past Medical History - Past Medical History Past Medical History: HTN, PUD/GERD, Dementia, Other (past medical history inferred from the medications the patient is on) Family History: Other (not available) Social History: Care Facility Surgical History: other (dialysis shunt) Psychiatricy History: Dementia Medication: Reviewed Family Medical History - Family Member Mother History Unknown: Yes Ethnicity: Non- Living Status: ED Physical Exam - Physical Examination General/Constitutional: Awake, Well-developed, well-nourished, Alert, No distress Other Gen/Cons comments:: Patient states the year is 1971 Head: Atraumatic Eyes: Lids, conjuctiva normal Skin: Nl inspection, No rash, No skin lesions, No ecchymosis ENMT: External ears, nose nl Other ENMT comments:: About 3 lower teeth present; upper dentures Neck: No nuchal rigidity Respiratory: Nl effort/Exclusion, Clear to Auscultation, No Wheeze/Rhonchi/Rales Cardio Vascular: RRR, No murmur, gallop, rubs GI: No tenderness/rebounding/guarding, No organomegaly, No hernia, Normal BS's, Nondistended : No CVA tenderness Extremities: Normal digits & nails Neuro/Psych: No focal deficits ED Labs/Radiology/EKG Results - Lab Results Results: Laboratory Results WBC 6.4 Th/cmm (4.8-10.8) 06/10/18 14:35 RBC 3.29 Mil/cmm (3.80-5.80) L 06/10/18 14:35 Hgb 10.4 gm/dL (12-16) L 06/10/18 14:35 Hct 30.9 % (41.0-60) L 06/10/18 14:35 MCV 93.8 fl (80-99) 06/10/18 14:35 MCH 31.6 pg (27.0-31.0) H 06/10/18 14:35 MCHC Differential 33.7 pg (28.0-36.0) 06/10/18 14:35 RDW 12.7 % (11.5-20.0) 06/10/18 14:35 Plt Count 301 Th/cmm (150-400) 06/10/18 14:35 MPV 6.3 fl 06/10/18 14:35 Neutrophils % 70.9 % (40.0-80.0) 06/10/18 14:35 Lymphocytes % 13.3 % (20.0-50.0) L 06/10/18 14:35 Monocytes % 10.1 % (2.0-10.0) H 06/10/18 14:35 Eosinophils % 4.2 % (0.0-5.0) 06/10/18 14:35 Basophils % 1.5 % (0.0-2.0) 06/10/18 14:35 PT 10.0 SECONDS (9.5-11.5) 06/10/18 14:35 INR 0.96 (0.5-1.4) 06/10/18 14:35 PTT (Actin FS) 27.6 SECONDS (26.0-38.0) 06/10/18 14:35 Sodium 137 mEq/L (136-145) 06/10/18 14:35 Potassium 4.5 mEq/L (3.5-5.1) 06/10/18 14:35 Chloride 97 mEq/L (98-107) L 06/10/18 14:35 Carbon Dioxide 28.8 mEq/L (21.0-31.0) 06/10/18 14:35 Anion Gap 15.7 (7.0-16.0) 06/10/18 14:35 BUN 47 mg/dL (7-25) H 06/10/18 14:35 Creatinine 6.2 mg/dL (0.7-1.3) H* 06/10/18 14:35 Est GFR ( Amer) TNP 06/10/18 14:35 Est GFR (Non-Af Amer) TNP 06/10/18 14:35 BUN/Creatinine Ratio 7.6 06/10/18 14:35 Glucose 90 mg/dL (70-105) 06/10/18 14:35 Calcium 9.4 mg/dL (8.6-10.3) 06/10/18 14:35 - Radiology Results Results: Chest x-ray showed elevation right hemidiaphragm, calcification of the aortic arch and tortuous aorta; no infiltrate ED Septic Shock - . Is Septic Shock (SBP<90, OR Lactate>4 mmol\L) present?: No ED Reassessment (Disposition) - Reassessment Reassessment Condition:: Unchanged - Diagnosis Diagnosis:: Obstructed dialysis shunt; renal failure on dialysis; viral bronchitis; anemia - Patient Disposition Admitted to:: Telemetry Spoke to:: Farheen Wiggins Admitting Medical Physician:: Pina Wiggins Condition at Disposition:: Stable, Unchanged
[2018-06-10 14:51] LABS: % BASOPHILS 1.5 % (0.0-2.0); % EOSINOPHILS 4.2 % (0.0-5.0); % LYMPHOCYTES 13.3 % (20.0-50.0); % MONOCYTES 10.1 % (2.0-10.0); % NEUTROPHILS 70.9 % (40.0-80.0); BASOPHILE ABSOLUTE 0.1 Th/cumm (0-0.2); EOSINOPHILE ABSOLUTE 0.3 Th/cmm (0.1-0.4); HEMATOCRIT 30.9 % (41.0-60); HEMOGLOBIN 10.4 gm/dL (12-16); LYMPHOCYTE ABSOLUTE 0.9 Th/cmm (1.5-3.0); MEAN CELL VOLUME 93.8 fl (80-99); MEAN CORPUSCULAR HEMOGLOBIN 31.6 pg (27.0-31.0); MEAN CORPUSCULAR HGB CONC 33.7 pg (28.0-36.0); MEAN PLATELET VOLUME 6.3 fl; MONOCYTE ABSOLUTE 0.6 Th/cmm (0.3-1.0); NEUTROPHILE ABSOLUTE 4.5 Th/cmm (1.8-8.0); PLATELET COUNT 301 Th/cmm (150-400); RED BLOOD COUNT 3.29 Mil/cmm (3.80-5.80); RED CELL DISTRIBUTION WIDTH 12.7 % (11.5-20.0); WHITE BLOOD COUNT 6.4 Th/cmm (4.8-10.8)
[2018-06-10 15:03] LABS: INR 0.96 (0.5-1.4)
[2018-06-10 15:07] LABS: ANION GAP 15.7 (7.0-16.0); BUN - UREA NITROGEN 47 mg/dL (7-25); CALCIUM SERUM 9.4 mg/dL (8.6-10.3); CARBON DIOXIDE 28.8 mEq/L (21.0-31.0); CHLORIDE 97 mEq/L (98-107); GLUCOSE 90 mg/dL (70-105); POTASSIUM SERUM 4.5 mEq/L (3.5-5.1); SODIUM SERUM 137 mEq/L (136-145)
[2018-06-10 15:12] LABS: CREATININE - SERUM 6.2 mg/dL (0.7-1.3)
[2018-06-11 05:38] LABS: % BASOPHILS 2.2 % (0.0-2.0); % EOSINOPHILS 5.5 % (0.0-5.0); % LYMPHOCYTES 24.1 % (20.0-50.0); % MONOCYTES 10.4 % (2.0-10.0); % NEUTROPHILS 57.8 % (40.0-80.0); BASOPHILE ABSOLUTE 0.1 Th/cumm (0-0.2); EOSINOPHILE ABSOLUTE 0.3 Th/cmm (0.1-0.4); HEMATOCRIT 33.2 % (41.0-60); HEMOGLOBIN 11.1 gm/dL (12-16); LYMPHOCYTE ABSOLUTE 1.2 Th/cmm (1.5-3.0); MEAN CELL VOLUME 94.7 fl (80-99); MEAN CORPUSCULAR HEMOGLOBIN 31.7 pg (27.0-31.0); MEAN CORPUSCULAR HGB CONC 33.5 pg (28.0-36.0); MEAN PLATELET VOLUME 6.6 fl; MONOCYTE ABSOLUTE 0.5 Th/cmm (0.3-1.0); NEUTROPHILE ABSOLUTE 2.9 Th/cmm (1.8-8.0); PLATELET COUNT 294 Th/cmm (150-400); RED BLOOD COUNT 3.51 Mil/cmm (3.80-5.80); RED CELL DISTRIBUTION WIDTH 12.8 % (11.5-20.0)
[2018-06-11 05:58] LABS: ANION GAP 17.6 (7.0-16.0); BUN - UREA NITROGEN 51 mg/dL (7-25); CALCIUM SERUM 9.7 mg/dL (8.6-10.3); CARBON DIOXIDE 24.8 mEq/L (21.0-31.0); CHLORIDE 101 mEq/L (98-107); CHOLESTEROL 130 mg/dL (<200); GLUCOSE 94 mg/dL (70-105); HDL -HIGH DENSITY LIPOPROTEIN 36 mg/dL (23-92); POTASSIUM SERUM 4.4 mEq/L (3.5-5.1); SODIUM SERUM 139 mEq/L (136-145); TRIGLYCERIDES 102 mg/dL (<150)
[2018-06-11 07:10] VITALS: BP 123/68
--- NOTE | 2018-06-11 09:21 | Diagnostic Imaging Report ---
Portable chest x-ray HISTORY: Cough The heart size appears to be at the upper limits of normal. Atherosclerotic calcification seen in a somewhat tortuous aorta. No acute focal pulmonary processes. IMPRESSION: 1. No acute abnormalities 2. Atherosclerotic vascular changes
[2018-06-11] MEDS ORDERED: VTE Chemical Prophylaxis Screen/Admission MC PRN (14:16)
--- NOTE | 2018-06-11 16:24 | Consultation ---
Consult Note - Consult Note Service Date: 06/11/18 Referring Physician: Farheen Wiggins Consult Note: PHYSICIAN Consultation Note: Date of Admission: 06/10/18 Purpose of Consultation: to declot the av shunt Chief Complaint: clotted av shunt in right arm History of Present Illness: Patient ANDRE REES JR was admitted to [facility] Telemetry with CLOTTED AV SHUNT,RENAL FAILURE. Past Medical History: ESRD, on HD Allergies Allergy/AdvReac Type Severity Reaction Status Date / Time No Known Allergies Allergy Verified 10/31/17 21:13 Vital Signs Temp 98 F 06/11/18 11:43 Pulse 68 06/11/18 11:43 Resp 18 06/11/18 13:00 BP 138/77 06/11/18 11:43 Pulse Ox 98 06/11/18 11:43 Intake & Output 06/10/18 06/11/18 06/11/18 18:59 06:59 18:59 Weight (lbs) 145 lb 138 lb Other: # Voids 2 # Bowel Movements 1 Stool Characteristics Soft Soft Brown Brown Black Black Weight Source Estimated Bedscale Laboratory Results - last 24 hr 06/11/18 06/11/18 06/11/18 05:20 05:20 05:20 WBC 5.0 RBC 3.51 L Hgb 11.1 L Hct 33.2 L MCV 94.7 MCH 31.7 H MCHC Differential 33.5 RDW 12.8 Plt Count 294 MPV 6.6 Neutrophils % 57.8 Lymphocytes % 24.1 Monocytes % 10.4 H Eosinophils % 5.5 H Basophils % 2.2 H Sodium 139 Potassium 4.4 Chloride 101 Carbon Dioxide 24.8 Anion Gap 17.6 H BUN 51 H Creatinine 7.0 H* Est GFR ( Amer) TNP Est GFR (Non-Af Amer) TNP BUN/Creatinine Ratio 7.3 Glucose 94 Calcium 9.7 Triglycerides 102 Cholesterol 130 LDL Cholesterol Direct 69 L HDL Cholesterol 36 TSH 3.25 Home Medication Medication Instructions Recorded Type Aspirin 81 mg PO DAILY 01/16/17 History Atorvastatin Calcium [Lipitor] 10 mg PO HS 01/16/17 History Citalopram Hydrobromide 20 mg PO DAILY 01/16/17 History [Citalopram HBr] Ferrous Sulfate [Iron] 325 mg PO BID 01/16/17 History Finasteride [Proscar] 5 mg PO DAILY 01/16/17 History Folic Acid [Folate*] 1 mg PO DAILY 01/16/17 History Mirtazapine [Remeron] 15 mg PO HS 01/16/17 History OLANZapine [ZyPREXA] 2.5 mg PO QPM 01/16/17 History Pantoprazole Sodium 40 mg PO DAILY 01/16/17 History Tamsulosin HCl [Flomax] 0.4 mg PO BID 01/16/17 History Donepezil Hcl [Aricept] 5 mg PO DAILY tab 01/20/17 Rx Metoprolol Tartrate [Lopressor] 25 mg PO DAILY tab 12/15/17 Rx Docusate Sodium [Stool Softener] 250 mg PO DAILY 01/17/18 History Midodrine HCl 5 mg PO MWF 01/17/18 History Current Medications Generic Name Dose Route Start Last Admin Trade Name Freq PRN Reason Stop Dose Admin Aspirin 81 mg 06/12/18 09:00 Aspirin Chewable PO 08/11/18 08:59 DAILY [facility] Atorvastatin Calcium 10 mg 06/11/18 21:00 Lipitor PO 08/10/18 20:59 HS [facility] Protocol Citalopram Hydrobromide 20 mg 06/12/18 09:00 Celexa PO 08/11/18 08:59 DAILY [facility] Protocol Docusate Sodium 250 mg 06/12/18 09:00 Colace PO 08/11/18 08:59 DAILY [facility] Donepezil HCl 5 mg 06/12/18 09:00 Aricept PO 08/11/18 08:59 DAILY [facility] Ferrous Sulfate 325 mg 06/11/18 17:00 Iron PO 08/10/18 16:59 BID [facility] Finasteride 5 mg 06/12/18 09:00 Proscar PO 08/11/18 08:59 DAILY [facility] Protocol Folic Acid 1 mg 06/12/18 09:00 Folate PO 08/11/18 08:59 DAILY [facility] Heparin Sodium (Porcine) 5,000 units 06/11/18 21:00 Heparin SUBQ 08/10/18 20:59 Q12H [facility] Albumin Human 25 gm in 100 mls @ 50 mls/hr 06/12/18 00:00 Albuminar 25% IV 06/12/18 23:59 X1 PRN BP Support During HD Metoprolol Tartrate 25 mg 06/12/18 09:00 Lopressor PO 08/11/18 08:59 DAILY [facility] Midodrine 5 mg 06/14/18 09:00 Proamatine PO 08/13/18 08:59 MWF [facility] Miscellaneous 1 ea 06/11/18 14:16 Vte Chemical Prophylaxis Screen/ Admission 08/10/18 14:15 PRN PRN PROTOCOL Olanzapine 2.5 mg 06/11/18 17:00 Zyprexa PO 08/10/18 16:59 QPM [facility] Protocol Pantoprazole Sodium 40 mg 06/12/18 09:00 Protonix PO 08/11/18 08:59 DAILY [facility] Tamsulosin HCl 0.4 mg 06/11/18 17:00 Flomax PO 08/10/18 16:59 BID [facility] Review of Systems: A 12 point ROS was reviewed with the pertinent positive and negatives noted in the HPI. Social History Smoking Status Former smoker Family Medical History Family Medical History Start: 06/10/18 18: 05 Freq: ONCE Status: Active Protocol: Document 06/10/18 19:50 ASHLEY (Rec: 06/11/18 03:24 ASHLEY [id number] ) Family Medical History Mother History Unknown Yes Physical Exam: General: Lert & awake HEENT: wnl Neck: supple Cardio: RSR Respiratory: Lungs clear Abdominal: soft, nontender Genital/Urinary: Extremities: av shunt in right arm with no flow. Neurological: Assessment: Clotted av shunt in right arm ESRD Plan: Thrombectomy of av shunt in right arm with angiogram. Signed, Moise Santos [id number]
[2018-06-11] MEDS: Ferrous Sulfate 325 MG TAB PO SCH (16:47)
--- NOTE | 2018-06-11 20:57 | History & Physical ---
ADMIT DATE: 06/11/2018 CHIEF COMPLAINT: Clotted dialysis shunt. HISTORY OF PRESENT ILLNESS: An 78-year-old male who is a [facility] resident, admitted to the telemetry unit due to a clotted shunt. The patient was at the dialysis center yesterday and dialysis could not be completed due to clotted dialysis catheter. PAST MEDICAL HISTORY: Hypertension, GERD, dementia. PAST SURGICAL HISTORY: Dialysis shunt. SOCIAL HISTORY: The patient is a [facility] resident. MEDICATIONS: See medication list. FAMILY HISTORY: Noncontributory. PHYSICAL EXAMINATION: GENERAL: The patient is well developed, well nourished, no apparent distress. VITAL SIGNS: Temperature 97.9, heart rate 75, blood pressure 140/70, respirations 18, O2 95%. HEENT: Head normocephalic, atraumatic. NECK: Supple. No mass. LUNGS: Clear bilaterally. HEART: Regular rhythm. ABDOMEN: Soft, nontender. LABORATORY DATA: WBC 5.0, H and H 11.1 and 33.2, platelet of 294. Sodium 139, potassium 4.4, chloride 101, BUN 51, creatinine 7.0. ASSESSMENT: Clotted AV shunt, ESRD on hemodialysis; dialysis Thursday, and Saturdays. PLAN: The patient to be admitted to the telemetry unit. We will get a Nephrology consultation. Continue [facility] medications. Followup labs for tomorrow morning. We will continue to monitor this patient. [facility]# [id number]
[2018-06-11] MEDS: Atorvastatin Calcium 10 MG TAB PO SCH (21:38)
[2018-06-12] MEDS ORDERED: Albumin 25% 25gm/100mL 25 GM/100 ML BTL IV PRN
[2018-06-12 05:24] LABS: % BASOPHILS 1.4 % (0.0-2.0); % EOSINOPHILS 5.1 % (0.0-5.0); % LYMPHOCYTES 18.4 % (20.0-50.0); % NEUTROPHILS 67.1 % (40.0-80.0); BASOPHILE ABSOLUTE 0.1 Th/cumm (0-0.2); EOSINOPHILE ABSOLUTE 0.3 Th/cmm (0.1-0.4); HEMATOCRIT 28.9 % (41.0-60); HEMOGLOBIN 9.8 gm/dL (12-16); LYMPHOCYTE ABSOLUTE 1.2 Th/cmm (1.5-3.0); MEAN CELL VOLUME 93.6 fl (80-99); MEAN CORPUSCULAR HEMOGLOBIN 31.7 pg (27.0-31.0); MEAN CORPUSCULAR HGB CONC 33.9 pg (28.0-36.0); MEAN PLATELET VOLUME 6.2 fl; MONOCYTE ABSOLUTE 0.5 Th/cmm (0.3-1.0); NEUTROPHILE ABSOLUTE 4.2 Th/cmm (1.8-8.0); PLATELET COUNT 343 Th/cmm (150-400); RED BLOOD COUNT 3.09 Mil/cmm (3.80-5.80); RED CELL DISTRIBUTION WIDTH 12.4 % (11.5-20.0); WHITE BLOOD COUNT 6.3 Th/cmm (4.8-10.8)
[2018-06-12 06:00] LABS: ANION GAP 15.8 (7.0-16.0); BUN - UREA NITROGEN 57 mg/dL (7-25); CALCIUM SERUM 9.6 mg/dL (8.6-10.3); CARBON DIOXIDE 22.7 mEq/L (21.0-31.0); CHLORIDE 102 mEq/L (98-107); GLUCOSE 98 mg/dL (70-105); POTASSIUM SERUM 4.5 mEq/L (3.5-5.1); SODIUM SERUM 136 mEq/L (136-145)
[2018-06-12 08:17] LABS: CREATININE - SERUM 7.8 mg/dL (0.7-1.3)
[2018-06-12] MEDS ORDERED: IOHEXOL 300mgI/mL 50 ML VIAL ONE (08:52)
[2018-06-12] MEDS ORDERED: Thrombin, Bovine 5,000 IU Vial TP ONE (08:53)
[2018-06-12] MEDS ORDERED: Gelatin Sponge 100cm Spg TP ONE (08:53)
[2018-06-12] MEDS: Aspirin 81mg Chewable Tab PO SCH (09:40)
[2018-06-12] MEDS: Ferrous Sulfate 325 MG TAB PO SCH ×2 (09:40→17:13)
[2018-06-12] MEDS: Pantoprazole 40 mg EC Tab PO SCH (09:40)
--- NOTE | 2018-06-12 12:04 | Consultation ---
DATE OF CONSULTATION: 06/11/2018 ATTENDING PHYSICIAN: Dr. Rashawn Wiggins REASON FOR CONSULT: Electrolyte imbalance and fluid management. HISTORY OF PRESENT ILLNESS: This is an 78-year-old male with past medical history of end-stage renal disease, on hemodialysis, who came in because of a clotted right AV fistula. A few hours prior to admission, dialysis staff attempted to cannulate the patient for dialysis. However, his AV fistula was noted to be clotted. He was brought to the Emergency Room. His white count was 6.4 with a potassium of 4.9 and a BUN/creatinine of 41/6.2. PAST MEDICAL HISTORY: 1. End-stage renal disease, on hemodialysis. 2. Alzheimer dementia. 3. BPH. 4. Dyslipidemia. 5. Psychosis. 6. Essential hypertension. CURRENT MEDICATIONS: Currently on aspirin, atorvastatin, citalopram, docusate sodium, donepezil, ferrous sulfate, finasteride, folic acid, furosemide, metoprolol, midodrine, olanzapine, pantoprazole, tamsulosin. ALLERGIES: No known drug allergies. SOCIAL AND FAMILY HISTORY: I was not able to obtain from the patient because of his dementia with periods of confusion. REVIEW OF SYSTEMS: Again, I was not able to decipher directly from the patient because of the same reason. PHYSICAL EXAMINATION: GENERAL: The patient is awake, not in any distress, trying to communicate. VITAL SIGNS: Blood pressure is 138/77, pulse 68, temperature 98 degrees. HEENT: Head normocephalic, atraumatic. Eyes: Extraocular muscles intact. Pupils equal, round, reactive to light and accommodates. Anicteric sclerae. Pale conjunctivae. Nose: Midline nasal septum. Mouth: Moist mucosa with poor dentition. NECK: Supple, no adenopathy, no thyromegaly, no bruits. Trachea palpated in the midline. CHEST AND CARDIOVASCULAR: S1, S2. No rub, murmur, no gallop appreciated. Point of maximal impulse fifth intercostal space, left midclavicular line. No abdominal or femoral bruits appreciated. LUNGS: Equal expansion. No use of accessory muscles. No supraclavicular retractions. Decreased breath sounds, but clear to auscultation without any wheeze. ABDOMEN: Flat, soft, positive for bowel sounds. No bruits either diastolic or systolic. RECTAL: The patient refused. GENITOURINARY: Normal appearing male genitalia. MUSCULOSKELETAL: No effusions present in his joints with limited range of motion. EXTREMITIES: No evidence of edema, cyanosis or clubbing with palpable femoral, popliteal, dorsalis pedis pulses. NEUROLOGIC: The patient is alert, verbal, motor is 5/5. Cranial nerves 2-12 intact. Sensory intact. LABORATORY AND DIAGNOSTIC DATA: Labs did reveal white count 5, hemoglobin 11.1, hematocrit 33.2, platelets 294, polys 57.8%. Sodium 139, potassium 4.4, chloride 101, bicarb 24, BUN 51, creatinine 7, glucose 94, calcium 9.7. TSH 3.25. IMPRESSION: 1. Clotted right AV fistula. 2. End-stage renal disease, on hemodialysis. 3. Alzheimer dementia. 4. Benign prostatic hypertrophy. 5. Dyslipidemia. 6. Psychosis. 7. Essential hypertension. PLAN: 1. Vascular Surgery consult. 2. Hemodialysis once shunt is declotted. JOB# [id number]
[2018-06-12] MEDS ORDERED: fentaNYL Citrate 100 mcg/2mL Vial ONE (12:39)
[2018-06-12] MEDS ORDERED: Metoclopramide 5 mg/mL 2mL Vial IVP SCH (12:44)
[2018-06-12] MEDS ORDERED: Propofol **SURGERY USE ONLY** 20 ML IV ONE (12:50)
--- NOTE | 2018-06-12 13:47 | Operative Report ---
Post Operative Report - POST-OPERATIVE NOTE Preoperative diagnosis:: clotted av shunt in right arm, esrd Postoperative diagnosis:: clotted av shunt in right arm, esrd Operation performed:: Thrombectomy of av shunt in right arm with angiogram Specimen:: clots Anesthesia:: Mac Anesthesiologist:: Sofia Spears Blood Loss (fluid management):: 40 Surgeon:: Moise Santos Findings:: clotted av shunt Prosthetic devices, grafts, tissue or device implanted:: none Complications:: none
--- NOTE | 2018-06-12 13:51 | General Progress Note ---
Subjective - Review of Systems Service Date: 06/12/18 Subjective: alert, verbal Objective - Results Result Diagrams: 06/12/18 05:00 06/12/18 05:00 Recent Labs: Laboratory Last Values WBC 6.3 Th/cmm (4.8-10.8) 06/12/18 05:00 RBC 3.09 Mil/cmm (3.80-5.80) L 06/12/18 05:00 Hgb 9.8 gm/dL (12-16) L 06/12/18 05:00 Hct 28.9 % (41.0-60) L 06/12/18 05:00 MCV 93.6 fl (80-99) 06/12/18 05:00 MCH 31.7 pg (27.0-31.0) H 06/12/18 05:00 MCHC Differential 33.9 pg (28.0-36.0) 06/12/18 05:00 RDW 12.4 % (11.5-20.0) 06/12/18 05:00 Plt Count 343 Th/cmm (150-400) 06/12/18 05:00 MPV 6.2 fl 06/12/18 05:00 Neutrophils % 67.1 % (40.0-80.0) 06/12/18 05:00 Lymphocytes % 18.4 % (20.0-50.0) L 06/12/18 05:00 Monocytes % 8.0 % (2.0-10.0) 06/12/18 05:00 Eosinophils % 5.1 % (0.0-5.0) H 06/12/18 05:00 Basophils % 1.4 % (0.0-2.0) 06/12/18 05:00 PT 10.0 SECONDS (9.5-11.5) 06/10/18 14:35 INR 0.96 (0.5-1.4) 06/10/18 14:35 PTT (Actin FS) 27.6 SECONDS (26.0-38.0) 06/10/18 14:35 Sodium 136 mEq/L (136-145) 06/12/18 05:00 Potassium 4.5 mEq/L (3.5-5.1) 06/12/18 05:00 Chloride 102 mEq/L (98-107) 06/12/18 05:00 Carbon Dioxide 22.7 mEq/L (21.0-31.0) 06/12/18 05:00 Anion Gap 15.8 (7.0-16.0) 06/12/18 05:00 BUN 57 mg/dL (7-25) H 06/12/18 05:00 Creatinine 7.8 mg/dL (0.7-1.3) H* 06/12/18 05:00 Est GFR ( Amer) TNP 06/12/18 05:00 Est GFR (Non-Af Amer) TNP 06/12/18 05:00 BUN/Creatinine Ratio 7.3 06/12/18 05:00 Glucose 98 mg/dL (70-105) 06/12/18 05:00 Calcium 9.6 mg/dL (8.6-10.3) 06/12/18 05:00 Triglycerides 102 mg/dL (<150) 06/11/18 05:20 Cholesterol 130 mg/dL (<200) 06/11/18 05:20 LDL Cholesterol Direct 69 mg/dL (75-193) L 06/11/18 05:20 HDL Cholesterol 36 mg/dL (23-92) 06/11/18 05:20 TSH 3.25 uIU/ml (0.34-5.60) 06/11/18 05:20 - Physical Exam Vitals and I&O: Vital Signs Temp 98.1 F 06/12/18 12:04 Pulse 70 06/12/18 12:04 Resp 18 06/12/18 13:00 BP 118/75 06/12/18 12:04 Pulse Ox 97 06/12/18 12:04 Intake & Output 06/11/18 06/12/18 06/12/18 18:59 06:59 18:59 Intake Total 300 100 50 Balance 300 100 50 Weight (lbs) 62.959 kg 62.596 kg 62.596 kg Intake: Oral 300 100 50 Other: # Voids 3 2 # Bowel Movements 1 Stool Characteristics Soft Brown Black Weight Source Bedscale Bedscale Bedscale Active Medications: Current Medications Aspirin (Aspirin Chewable) 81 mg PO DAILY [facility] Stop: 08/11/18 08:59 Last Admin: 06/12/18 09:40 Dose: 81 mg Atorvastatin Calcium (Lipitor) 10 mg PO [facility]; Protocol Stop: 08/10/18 20:59 Last Admin: 06/11/18 21:38 Dose: 10 mg Citalopram Hydrobromide (Celexa) 20 mg PO DAILY [facility]; Protocol Stop: 08/11/18 08:59 Last Admin: 06/12/18 09:40 Dose: 20 mg Docusate Sodium (Colace) 250 mg PO DAILY [facility] Stop: 08/11/18 08:59 Last Admin: 06/12/18 09:40 Dose: 250 mg Donepezil HCl (Aricept) 5 mg PO DAILY [facility] Stop: 08/11/18 08:59 Last Admin: 06/12/18 09:40 Dose: 5 mg Ferrous Sulfate (Iron) 325 mg PO BID [facility] Stop: 08/10/18 16:59 Last Admin: 06/12/18 09:40 Dose: 325 mg Finasteride (Proscar) 5 mg PO DAILY [facility]; Protocol Stop: 08/11/18 08:59 Last Admin: 06/12/18 09:40 Dose: 5 mg Folic Acid (Folate) 1 mg PO DAILY [facility] Stop: 08/11/18 08:59 Last Admin: 06/12/18 09:40 Dose: 1 mg Heparin Sodium (Porcine) (Heparin) 5,000 units SUBQ Q12H [facility] Stop: 08/10/18 20:59 Last Admin: 06/12/18 09:39 Dose: Not Given Albumin Human (Albuminar 25%) 25 gm in 100 mls @ 50 mls/hr IV PRN PRN PRN Reason: BP Support During HD Stop: 06/12/18 23:59 Metoprolol Tartrate (Lopressor) 25 mg PO DAILY [facility] Stop: 08/11/18 08:59 Last Admin: 06/12/18 09:41 Dose: 25 mg Midodrine (Proamatine) 5 mg PO PRN PRN PRN Reason: ON HD DAYS ONLY Stop: 08/13/18 08:59 Miscellaneous (Vte Chemical Prophylaxis Screen/ Admission) 1 ea [facility] PRN PRN PRN Reason: PROTOCOL Stop: 08/10/18 14:15 Olanzapine (Zyprexa) 2.5 mg PO QPM [facility]; Protocol Stop: 08/10/18 16:59 Last Admin: 06/11/18 16:47 Dose: 2.5 mg Pantoprazole Sodium (Protonix) 40 mg PO DAILY [facility] Stop: 08/11/18 08:59 Last Admin: 06/12/18 09:40 Dose: 40 mg Tamsulosin HCl (Flomax) 0.4 mg PO BID [facility] Stop: 08/10/18 16:59 Last Admin: 06/12/18 09:40 Dose: 0.4 mg General: Alert, No acute distress HEENT: Atraumatic, Mucous membr. moist/pink Neck: Supple, +2 carotid pulse wo bruit Cardiovascular: Regular rate, Normal S1, Normal S2 Lungs: Clear to auscultation Abdomen: Bowel sounds, Soft Extremities: no Edema Neurological: Sensation intact Skin: no Rash Psych/Mental Status: Mood NL - Procedures Procedures: Procedures Procedure Code Date BYPASS RIGHT BRACHIAL ARTERY TO UP ARM VEIN, OPEN APPROACH [id number] 12/10/17 FLUOROSCOPY OF RIGHT HEART USING LOW OSMOLAR CONTRAST [id number] 12/10/17 INSERTION OF INFUSION DEV INTO SUP VENA CAVA, PERC APPROACH [id number] 10/31/17 INSERTION OF INFUSION DEVICE INTO R ATRIUM, PERC APPROACH [id number] 12/10/17 PERFORMANCE OF URINARY FILTRATION, <6 HRS/DAY [id number] 12/10/17 REMOVAL OF INFUSION DEVICE FROM UPPER VEIN, PIG MACHINE OPERATOR HELPER APPROACH [id number] 10/31/17 ULTRASONOGRAPHY OF SUPERIOR VENA CAVA, GUIDANCE [id number] 10/31/17 Assessment/Plan - Problem List Patient Problems: All Active Problems COUGH, CONGESTION, WEAKNESS, BAD GRAFT (Acute) - Assessment Assessment: Clotted right AVF ESRD on HD Alzheimer Dementia BPH Dyslipidemia Psych Ess Htn - Plan Plan: Lab - Result Diagrams 06/12/18 05:00 06/12/18 05:00 Current Medications Aspirin (Aspirin Chewable) 81 mg PO DAILY [facility] Stop: 08/11/18 08:59 Last Admin: 06/12/18 09:40 Dose: 81 mg Atorvastatin Calcium (Lipitor) 10 mg PO HS [facility]; Protocol Stop: 08/10/18 20:59 Last Admin: 06/11/18 21:38 Dose: 10 mg Citalopram Hydrobromide (Celexa) 20 mg PO DAILY [facility]; Protocol Stop: 08/11/18 08:59 Last Admin: 06/12/18 09:40 Dose: 20 mg Docusate Sodium (Colace) 250 mg PO DAILY [facility] Stop: 08/11/18 08:59 Last Admin: 06/12/18 09:40 Dose: 250 mg Donepezil HCl (Aricept) 5 mg PO DAILY [facility] Stop: 08/11/18 08:59 Last Admin: 06/12/18 09:40 Dose: 5 mg Ferrous Sulfate (Iron) 325 mg PO BID [facility] Stop: 08/10/18 16:59 Last Admin: 06/12/18 09:40 Dose: 325 mg Finasteride (Proscar) 5 mg PO DAILY [facility]; Protocol Stop: 08/11/18 08:59 Last Admin: 06/12/18 09:40 Dose: 5 mg Folic Acid (Folate) 1 mg PO DAILY [facility] Stop: 08/11/18 08:59 Last Admin: 06/12/18 09:40 Dose: 1 mg Heparin Sodium (Porcine) (Heparin) 5,000 units SUBQ Q12H [facility] Stop: 08/10/18 20:59 Last Admin: 06/12/18 09:39 Dose: Not Given Albumin Human (Albuminar 25%) 25 gm in 100 mls @ 50 mls/hr IV PRN PRN PRN Reason: BP Support During HD Stop: 06/12/18 23:59 Metoprolol Tartrate (Lopressor) 25 mg PO DAILY [facility] Stop: 08/11/18 08:59 Last Admin: 06/12/18 09:41 Dose: 25 mg Midodrine (Proamatine) 5 mg PO PRN PRN PRN Reason: ON HD DAYS ONLY Stop: 08/13/18 08:59 Miscellaneous (Vte Chemical Prophylaxis Screen/ Admission) 1 ea [facility] PRN PRN PRN Reason: PROTOCOL Stop: 08/10/18 14:15 Olanzapine (Zyprexa) 2.5 mg PO QPM [facility]; Protocol Stop: 08/10/18 16:59 Last Admin: 06/11/18 16:47 Dose: 2.5 mg Pantoprazole Sodium (Protonix) 40 mg PO DAILY [facility] Stop: 08/11/18 08:59 Last Admin: 06/12/18 09:40 Dose: 40 mg Tamsulosin HCl (Flomax) 0.4 mg PO BID [facility] Stop: 08/10/18 16:59 Last Admin: 06/12/18 09:40 Dose: 0.4 mg Lab - Result Diagrams 06/12/18 05:00 06/12/18 05:00 scheduled for thrombectomy today dialysis post surgery
--- NOTE | 2018-06-12 13:56 | Operative Report ---
Operative Report - Surgery Date of Surgery:: 06-12-2018 Procedure:: thrombectomy of av shunt in right arm & angiogram Indication for procedure:: need for dialysis Procedure consent:: from patient Anesthesia:: Anesthesiologist: Anesthesia: MAC Preoperative diagnosis:: clotted av graft in right arm esrd Postoperative diagnosis:: coltted av graft in right arm esrd Description of Procedure:: Patient was plced in supine position. Right arm was prepped & draped & timeout was taken. 1% lidocaine & 0.5% marcaine was injected Murphy incision was made in proximal right arm. The graft was exposed & isolated. Thrombectomy was performed on venous & arterial side with 4 fr fogwery catheter & good flow was established. Angiogram was taken on venous & arterial side No stenosis was noted. Incision in the graft was closed with cv7 goretex suture. incision was closed with 3-0 & 4-0 vicryl & srile dressing was applied. Recommendations:: Graft can be used for dialysis today.
[2018-06-12] MEDS: Atorvastatin Calcium 10 MG TAB PO SCH (21:25)
[2018-06-13 06:16] LABS: % BASOPHILS 1.6 % (0.0-2.0); % EOSINOPHILS 3.7 % (0.0-5.0); % LYMPHOCYTES 19.5 % (20.0-50.0); % MONOCYTES 9.3 % (2.0-10.0); % NEUTROPHILS 65.9 % (40.0-80.0); BASOPHILE ABSOLUTE 0.1 Th/cumm (0-0.2); EOSINOPHILE ABSOLUTE 0.2 Th/cmm (0.1-0.4); HEMATOCRIT 26.9 % (41.0-60); LYMPHOCYTE ABSOLUTE 1.1 Th/cmm (1.5-3.0); MEAN CELL VOLUME 94.2 fl (80-99); MEAN CORPUSCULAR HEMOGLOBIN 31.4 pg (27.0-31.0); MEAN CORPUSCULAR HGB CONC 33.3 pg (28.0-36.0); MEAN PLATELET VOLUME 6.4 fl; MONOCYTE ABSOLUTE 0.5 Th/cmm (0.3-1.0); NEUTROPHILE ABSOLUTE 3.8 Th/cmm (1.8-8.0); PLATELET COUNT 300 Th/cmm (150-400); RED BLOOD COUNT 2.85 Mil/cmm (3.80-5.80); RED CELL DISTRIBUTION WIDTH 12.2 % (11.5-20.0); WHITE BLOOD COUNT 5.7 Th/cmm (4.8-10.8)
--- NOTE | 2018-06-13 06:20 | Progress Notes ---
DATE: 06/12/2018 SUBJECTIVE: The patient was seen today. The patient appears to be in and out of confusion, awake, alert, oriented x 1 to name. The patient underwent AV shunt declotting today. No signs or symptoms of any acute bleeding. The patient tolerated procedure well. Otherwise, the patient is in no acute distress. OBJECTIVE: VITAL SIGNS: Temperature 98.1, heart rate of 82, blood pressure 134/70, respiration 18, 97% on room air. HEENT: Head is atraumatic and normocephalic. Eyes: Bilateral conjunctivae are clear. Bilateral pupils are equally round and reactive. NECK: Supple. No JVD. CARDIOVASCULAR: S1 and S2, without murmur. PULMONARY: Clear to auscultation. GASTROINTESTINAL: Soft and nontender without guarding. Positive bowel sounds. MUSCULOSKELETAL: No clubbing. No cyanosis noted. ASSESSMENT: 1. AV shunt malfunction. 2. Status post AV shunt declotting. 3. End-stage renal disease, hemodialysis dependent. 4. Hypertension. 5. Iron deficiency anemia. 6. Hyperlipidemia. 7. Dementia. PLAN: We will resume hemodialysis as scheduled. We will follow up with multimedia author. Treatment plan was discussed with the patient's nurse. Treatment plans were discussed with Dr. Wiggins. JOB# [id number]
[2018-06-13 06:31] LABS: ANION GAP 10.6 (7.0-16.0); BUN - UREA NITROGEN 22 mg/dL (7-25); CALCIUM SERUM 8.9 mg/dL (8.6-10.3); CARBON DIOXIDE 30.8 mEq/L (21.0-31.0); CHLORIDE 103 mEq/L (98-107); GLUCOSE 90 mg/dL (70-105); POTASSIUM SERUM 3.4 mEq/L (3.5-5.1); SODIUM SERUM 141 mEq/L (136-145)
[2018-06-13] MEDS: Ferrous Sulfate 325 MG TAB PO SCH ×2 (10:22→18:05)
[2018-06-13] MEDS: Aspirin 81mg Chewable Tab PO SCH (10:22)
[2018-06-13] MEDS: Pantoprazole 40 mg EC Tab PO SCH (10:22)
--- NOTE | 2018-06-13 10:38 | Diagnostic Imaging Report ---
Intraoperative fluoroscopic services HISTORY: Surgery Intraoperative fluoroscopic images and services were provided for facilitation of surgical intervention. 1 minute 8 seconds fluoroscopy time was utilized.
--- NOTE | 2018-06-13 11:58 | Internal Medicine Prog Note ---
Internal Medicine Subjective - Subjective Patient seen and examined:: chart reviewed Patient is:: awake, other (in no distress s/p declotting of shunt doing well) Internal Medicine Objective - Results Result Diagrams: 06/13/18 05:30 06/13/18 05:30 Recent Labs: Laboratory Last Values WBC 5.7 Th/cmm (4.8-10.8) 06/13/18 05:30 RBC 2.85 Mil/cmm (3.80-5.80) L 06/13/18 05:30 Hgb 9.0 gm/dL (12-16) L 06/13/18 05:30 Hct 26.9 % (41.0-60) L 06/13/18 05:30 MCV 94.2 fl (80-99) 06/13/18 05:30 MCH 31.4 pg (27.0-31.0) H 06/13/18 05:30 MCHC Differential 33.3 pg (28.0-36.0) 06/13/18 05:30 RDW 12.2 % (11.5-20.0) 06/13/18 05:30 Plt Count 300 Th/cmm (150-400) 06/13/18 05:30 MPV 6.4 fl 06/13/18 05:30 Neutrophils % 65.9 % (40.0-80.0) 06/13/18 05:30 Lymphocytes % 19.5 % (20.0-50.0) L 06/13/18 05:30 Monocytes % 9.3 % (2.0-10.0) 06/13/18 05:30 Eosinophils % 3.7 % (0.0-5.0) 06/13/18 05:30 Basophils % 1.6 % (0.0-2.0) 06/13/18 05:30 PT 10.0 SECONDS (9.5-11.5) 06/10/18 14:35 INR 0.96 (0.5-1.4) 06/10/18 14:35 PTT (Actin FS) 27.6 SECONDS (26.0-38.0) 06/10/18 14:35 Sodium 141 mEq/L (136-145) 06/13/18 05:30 Potassium 3.4 mEq/L (3.5-5.1) L 06/13/18 05:30 Chloride 103 mEq/L (98-107) 06/13/18 05:30 Carbon Dioxide 30.8 mEq/L (21.0-31.0) 06/13/18 05:30 Anion Gap 10.6 (7.0-16.0) 06/13/18 05:30 BUN 22 mg/dL (7-25) 06/13/18 05:30 Creatinine 4.0 mg/dL (0.7-1.3) H 06/13/18 05:30 Est GFR ( Amer) TNP 06/13/18 05:30 Est GFR (Non-Af Amer) TNP 06/13/18 05:30 BUN/Creatinine Ratio 5.5 06/13/18 05:30 Glucose 90 mg/dL (70-105) 06/13/18 05:30 Calcium 8.9 mg/dL (8.6-10.3) 06/13/18 05:30 Triglycerides 102 mg/dL (<150) 06/11/18 05:20 Cholesterol 130 mg/dL (<200) 06/11/18 05:20 LDL Cholesterol Direct 69 mg/dL (75-193) L 06/11/18 05:20 HDL Cholesterol 36 mg/dL (23-92) 06/11/18 05:20 TSH 3.25 uIU/ml (0.34-5.60) 06/11/18 05:20 - Physical Exam Vitals and I&O: Vital Signs Temp 97.1 F 06/13/18 08:55 Pulse 62 06/13/18 10:23 Resp 20 06/13/18 09:00 BP 106/60 06/13/18 10:23 Pulse Ox 99 06/13/18 08:55 Intake & Output 06/12/18 06/13/18 06/13/18 18:59 06:59 18:59 Intake Total 350 100 200 Balance 350 100 200 Weight (lbs) 62.596 kg 62.596 kg 62.596 kg Intake: Oral 350 100 200 Other: # Voids 1 2 # Bowel Movements 0 Weight Source Bedscale Bedscale Bedscale Active Medications: Current Medications Aspirin (Aspirin Chewable) 81 mg PO DAILY [facility] Stop: 08/11/18 08:59 Last Admin: 06/13/18 10:22 Dose: 81 mg Atorvastatin Calcium (Lipitor) 10 mg PO HS [facility]; Protocol Stop: 08/10/18 20:59 Last Admin: 06/12/18 21:25 Dose: Not Given Citalopram Hydrobromide (Celexa) 20 mg PO DAILY [facility]; Protocol Stop: 08/11/18 08:59 Last Admin: 06/13/18 10:22 Dose: 20 mg Docusate Sodium (Colace) 250 mg PO DAILY [facility] Stop: 08/11/18 08:59 Last Admin: 06/13/18 10:23 Dose: 250 mg Donepezil HCl (Aricept) 5 mg PO DAILY [facility] Stop: 08/11/18 08:59 Last Admin: 06/13/18 10:22 Dose: 5 mg Ferrous Sulfate (Iron) 325 mg PO BID [facility] Stop: 08/10/18 16:59 Last Admin: 06/13/18 10:22 Dose: 325 mg Finasteride (Proscar) 5 mg PO DAILY [facility]; Protocol Stop: 08/11/18 08:59 Last Admin: 06/13/18 10:21 Dose: 5 mg Folic Acid (Folate) 1 mg PO DAILY [facility] Stop: 08/11/18 08:59 Last Admin: 06/13/18 10:21 Dose: 1 mg Heparin Sodium (Porcine) (Heparin) 5,000 units SUBQ Q12H [facility] Stop: 08/10/18 20:59 Last Admin: 06/13/18 10:21 Dose: 5,000 units Metoprolol Tartrate (Lopressor) 25 mg PO DAILY [facility] Stop: 08/11/18 08:59 Last Admin: 06/13/18 10:23 Dose: Not Given Midodrine (Proamatine) 5 mg PO PRN PRN PRN Reason: ON HD DAYS ONLY Stop: 08/13/18 08:59 Miscellaneous (Vte Chemical Prophylaxis Screen/ Admission) 1 ea [facility] PRN PRN PRN Reason: PROTOCOL Stop: 08/10/18 14:15 Olanzapine (Zyprexa) 2.5 mg PO QPM [facility]; Protocol Stop: 08/10/18 16:59 Last Admin: 06/12/18 17:13 Dose: 2.5 mg Pantoprazole Sodium (Protonix) 40 mg PO DAILY [facility] Stop: 08/11/18 08:59 Last Admin: 06/13/18 10:22 Dose: 40 mg Tamsulosin HCl (Flomax) 0.4 mg PO BID [facility] Stop: 08/10/18 16:59 Last Admin: 06/13/18 10:22 Dose: 0.4 mg General: weak, alert HEENT: NC/AT Neck: Supple Lungs: CTAB Cardiovascular: RRR, Normal S1, Normal S2 Abdomen: soft Extremities: clear, edema Neurological: no change - Procedures Procedures: Procedures Procedure Code Date BYPASS RIGHT BRACHIAL ARTERY TO UP ARM VEIN, OPEN APPROACH [id number] 12/10/17 FLUOROSCOPY OF RIGHT HEART USING LOW OSMOLAR CONTRAST [id number] 12/10/17 INSERTION OF INFUSION DEV INTO SUP VENA CAVA, PERC APPROACH [id number] 10/31/17 INSERTION OF INFUSION DEVICE INTO R ATRIUM, PERC APPROACH [id number] 12/10/17 PERFORMANCE OF URINARY FILTRATION, <6 HRS/DAY [id number] 12/10/17 REMOVAL OF INFUSION DEVICE FROM UPPER VEIN, CONVEYOR SYSTEM DISPATCHER APPROACH [id number] 10/31/17 ULTRASONOGRAPHY OF SUPERIOR VENA CAVA, GUIDANCE [id number] 10/31/17 Internal Medicine Assmt/Plan - Assessment Assessment: av shunt malfunction s/p av shunt declotting esrd/hd - Plan Plan: as per order sheet
--- NOTE | 2018-06-13 17:17 | General Progress Note ---
Subjective - Review of Systems Service Date: 06/13/18 Subjective: alert, verbal, wants to go home Objective - Results Result Diagrams: 06/13/18 05:30 06/13/18 05:30 Recent Labs: Laboratory Last Values WBC 5.7 Th/cmm (4.8-10.8) 06/13/18 05:30 RBC 2.85 Mil/cmm (3.80-5.80) L 06/13/18 05:30 Hgb 9.0 gm/dL (12-16) L 06/13/18 05:30 Hct 26.9 % (41.0-60) L 06/13/18 05:30 MCV 94.2 fl (80-99) 06/13/18 05:30 MCH 31.4 pg (27.0-31.0) H 06/13/18 05:30 MCHC Differential 33.3 pg (28.0-36.0) 06/13/18 05:30 RDW 12.2 % (11.5-20.0) 06/13/18 05:30 Plt Count 300 Th/cmm (150-400) 06/13/18 05:30 MPV 6.4 fl 06/13/18 05:30 Neutrophils % 65.9 % (40.0-80.0) 06/13/18 05:30 Lymphocytes % 19.5 % (20.0-50.0) L 06/13/18 05:30 Monocytes % 9.3 % (2.0-10.0) 06/13/18 05:30 Eosinophils % 3.7 % (0.0-5.0) 06/13/18 05:30 Basophils % 1.6 % (0.0-2.0) 06/13/18 05:30 PT 10.0 SECONDS (9.5-11.5) 06/10/18 14:35 INR 0.96 (0.5-1.4) 06/10/18 14:35 PTT (Actin FS) 27.6 SECONDS (26.0-38.0) 06/10/18 14:35 Sodium 141 mEq/L (136-145) 06/13/18 05:30 Potassium 3.4 mEq/L (3.5-5.1) L 06/13/18 05:30 Chloride 103 mEq/L (98-107) 06/13/18 05:30 Carbon Dioxide 30.8 mEq/L (21.0-31.0) 06/13/18 05:30 Anion Gap 10.6 (7.0-16.0) 06/13/18 05:30 BUN 22 mg/dL (7-25) 06/13/18 05:30 Creatinine 4.0 mg/dL (0.7-1.3) H 06/13/18 05:30 Est GFR ( Amer) TNP 06/13/18 05:30 Est GFR (Non-Af Amer) TNP 06/13/18 05:30 BUN/Creatinine Ratio 5.5 06/13/18 05:30 Glucose 90 mg/dL (70-105) 06/13/18 05:30 Calcium 8.9 mg/dL (8.6-10.3) 06/13/18 05:30 Triglycerides 102 mg/dL (<150) 06/11/18 05:20 Cholesterol 130 mg/dL (<200) 06/11/18 05:20 LDL Cholesterol Direct 69 mg/dL (75-193) L 06/11/18 05:20 HDL Cholesterol 36 mg/dL (23-92) 06/11/18 05:20 TSH 3.25 uIU/ml (0.34-5.60) 06/11/18 05:20 - Physical Exam Vitals and I&O: Vital Signs Temp 97.1 F 06/13/18 08:55 Pulse 62 06/13/18 10:23 Resp 20 06/13/18 13:00 BP 106/60 06/13/18 10:23 Pulse Ox 99 06/13/18 08:55 Intake & Output 06/12/18 06/13/18 06/13/18 18:59 06:59 18:59 Intake Total 350 100 200 Balance 350 100 200 Weight (lbs) 62.596 kg 62.596 kg 62.596 kg Intake: Oral 350 100 200 Other: # Voids 1 2 # Bowel Movements 0 Weight Source Bedscale Bedscale Bedscale Active Medications: Current Medications Aspirin (Aspirin Chewable) 81 mg PO DAILY [facility] Stop: 08/11/18 08:59 Last Admin: 06/13/18 10:22 Dose: 81 mg Atorvastatin Calcium (Lipitor) 10 mg PO HS [facility]; Protocol Stop: 08/10/18 20:59 Last Admin: 06/12/18 21:25 Dose: Not Given Citalopram Hydrobromide (Celexa) 20 mg PO DAILY [facility]; Protocol Stop: 08/11/18 08:59 Last Admin: 06/13/18 10:22 Dose: 20 mg Docusate Sodium (Colace) 250 mg PO DAILY [facility] Stop: 08/11/18 08:59 Last Admin: 06/13/18 10:23 Dose: 250 mg Donepezil HCl (Aricept) 5 mg PO DAILY [facility] Stop: 08/11/18 08:59 Last Admin: 06/13/18 10:22 Dose: 5 mg Ferrous Sulfate (Iron) 325 mg PO BID [facility] Stop: 08/10/18 16:59 Last Admin: 06/13/18 10:22 Dose: 325 mg Finasteride (Proscar) 5 mg PO DAILY [facility]; Protocol Stop: 08/11/18 08:59 Last Admin: 06/13/18 10:21 Dose: 5 mg Folic Acid (Folate) 1 mg PO DAILY [facility] Stop: 08/11/18 08:59 Last Admin: 06/13/18 10:21 Dose: 1 mg Heparin Sodium (Porcine) (Heparin) 5,000 units SUBQ Q12H [facility] Stop: 08/10/18 20:59 Last Admin: 06/13/18 10:21 Dose: 5,000 units Metoprolol Tartrate (Lopressor) 25 mg PO DAILY [facility] Stop: 08/11/18 08:59 Last Admin: 06/13/18 10:23 Dose: Not Given Midodrine (Proamatine) 5 mg PO PRN PRN PRN Reason: ON HD DAYS ONLY Stop: 08/13/18 08:59 Miscellaneous (Vte Chemical Prophylaxis Screen/ Admission) 1 ea [facility] PRN PRN PRN Reason: PROTOCOL Stop: 08/10/18 14:15 Olanzapine (Zyprexa) 2.5 mg PO QPM [facility]; Protocol Stop: 08/10/18 16:59 Last Admin: 06/12/18 17:13 Dose: 2.5 mg Pantoprazole Sodium (Protonix) 40 mg PO DAILY [facility] Stop: 08/11/18 08:59 Last Admin: 06/13/18 10:22 Dose: 40 mg Tamsulosin HCl (Flomax) 0.4 mg PO BID [facility] Stop: 08/10/18 16:59 Last Admin: 06/13/18 10:22 Dose: 0.4 mg General: Alert, No acute distress HEENT: Atraumatic, Mucous membr. moist/pink Neck: Supple, +2 carotid pulse wo bruit Cardiovascular: Regular rate, Normal S1, Normal S2 Lungs: Clear to auscultation Abdomen: Bowel sounds, Soft Extremities: Other (soaked w/ blood right AVF dressing), no Edema Neurological: Sensation intact Skin: no Rash Psych/Mental Status: Mood NL - Procedures Procedures: Procedures Procedure Code Date BYPASS RIGHT BRACHIAL ARTERY TO UP ARM VEIN, OPEN APPROACH [id number] 12/10/17 FLUOROSCOPY OF RIGHT HEART USING LOW OSMOLAR CONTRAST [id number] 12/10/17 INSERTION OF INFUSION DEV INTO SUP VENA CAVA, PERC APPROACH [id number] 10/31/17 INSERTION OF INFUSION DEVICE INTO R ATRIUM, PERC APPROACH [id number] 12/10/17 PERFORMANCE OF URINARY FILTRATION, <6 HRS/DAY [id number] 12/10/17 REMOVAL OF INFUSION DEVICE FROM UPPER VEIN, FOOD AND BEVERAGE ORDER CLERK APPROACH [id number] 10/31/17 ULTRASONOGRAPHY OF SUPERIOR VENA CAVA, GUIDANCE [id number] 10/31/17 Assessment/Plan - Problem List Patient Problems: All Active Problems COUGH, CONGESTION, WEAKNESS, BAD GRAFT (Acute) - Assessment Assessment: S/P Thrombectomy right AVF ESRD on HD Alzheimer Dementia BPH Dyslipidemia Psych Ess Htn - Plan Plan: Lab - Result Diagrams 06/12/18 05:00 06/12/18 05:00 Current Medications Aspirin (Aspirin Chewable) 81 mg PO DAILY [facility] Stop: 08/11/18 08:59 Last Admin: 06/12/18 09:40 Dose: 81 mg Atorvastatin Calcium (Lipitor) 10 mg PO HS [facility]; Protocol Stop: 08/10/18 20:59 Last Admin: 06/11/18 21:38 Dose: 10 mg Citalopram Hydrobromide (Celexa) 20 mg PO DAILY [facility]; Protocol Stop: 08/11/18 08:59 Last Admin: 06/12/18 09:40 Dose: 20 mg Docusate Sodium (Colace) 250 mg PO DAILY [facility] Stop: 08/11/18 08:59 Last Admin: 06/12/18 09:40 Dose: 250 mg Donepezil HCl (Aricept) 5 mg PO DAILY [facility] Stop: 08/11/18 08:59 Last Admin: 04/20/19 09:40 Dose: 5 mg Ferrous Sulfate (Iron) 325 mg PO BID [facility] Stop: 08/10/18 16:59 Last Admin: 06/12/18 09:40 Dose: 325 mg Finasteride (Proscar) 5 mg PO DAILY [facility]; Protocol Stop: 08/11/18 08:59 Last Admin: 06/12/18 09:40 Dose: 5 mg Folic Acid (Folate) 1 mg PO DAILY [facility] Stop: 08/11/18 08:59 Last Admin: 06/12/18 09:40 Dose: 1 mg Heparin Sodium (Porcine) (Heparin) 5,000 units SUBQ Q12H [facility] Stop: 08/10/18 20:59 Last Admin: 06/12/18 09:39 Dose: Not Given Albumin Human (Albuminar 25%) 25 gm in 100 mls @ 50 mls/hr IV PRN PRN PRN Reason: BP Support During HD Stop: 06/12/18 23:59 Metoprolol Tartrate (Lopressor) 25 mg PO DAILY [facility] Stop: 08/11/18 08:59 Last Admin: 06/12/18 09:41 Dose: 25 mg Midodrine (Proamatine) 5 mg PO PRN PRN PRN Reason: ON HD DAYS ONLY Stop: 08/13/18 08:59 Miscellaneous (Vte Chemical Prophylaxis Screen/ Admission) 1 ea [facility] PRN PRN PRN Reason: PROTOCOL Stop: 08/10/18 14:15 Olanzapine (Zyprexa) 2.5 mg PO QPM [facility]; Protocol Stop: 08/10/18 16:59 Last Admin: 06/11/18 16:47 Dose: 2.5 mg Pantoprazole Sodium (Protonix) 40 mg PO DAILY [facility] Stop: 08/11/18 08:59 Last Admin: 06/12/18 09:40 Dose: 40 mg Tamsulosin HCl (Flomax) 0.4 mg PO BID [facility] Stop: 08/10/18 16:59 Last Admin: 06/12/18 09:40 Dose: 0.4 mg Lab - Result Diagrams 06/13/18 05:30 06/13/18 05:30 had Thrombectomy yesterday still has oozing right avf did not complete dialysis last nite due to hypotension replace K, HD in am
[2018-06-13] MEDS ORDERED: Potassium Chloride 20 mEq ER Tab PO ONE (17:19)
[2018-06-13] MEDS: Atorvastatin Calcium 10 MG TAB PO SCH (21:16)
--- NOTE | 2018-06-14 09:30 | Internal Medicine Prog Note ---
Internal Medicine Subjective - Subjective Service Date: 06/14/18 Patient seen and examined:: with staff Patient is:: awake, talking, other (in no distress s/p declotting of shunt doing well) Patient Complaints of:: other (s/p clotting of shunt.) Internal Medicine Objective - Results Result Diagrams: 06/13/18 05:30 06/13/18 05:30 Recent Labs: Laboratory Last Values WBC 5.7 Th/cmm (4.8-10.8) 06/13/18 05:30 RBC 2.85 Mil/cmm (3.80-5.80) L 06/13/18 05:30 Hgb 9.0 gm/dL (12-16) L 06/13/18 05:30 Hct 26.9 % (41.0-60) L 06/13/18 05:30 MCV 94.2 fl (80-99) 06/13/18 05:30 MCH 31.4 pg (27.0-31.0) H 06/13/18 05:30 MCHC Differential 33.3 pg (28.0-36.0) 06/13/18 05:30 RDW 12.2 % (11.5-20.0) 06/13/18 05:30 Plt Count 300 Th/cmm (150-400) 06/13/18 05:30 MPV 6.4 fl 06/13/18 05:30 Neutrophils % 65.9 % (40.0-80.0) 06/13/18 05:30 Lymphocytes % 19.5 % (20.0-50.0) L 06/13/18 05:30 Monocytes % 9.3 % (2.0-10.0) 06/13/18 05:30 Eosinophils % 3.7 % (0.0-5.0) 06/13/18 05:30 Basophils % 1.6 % (0.0-2.0) 06/13/18 05:30 PT 10.0 SECONDS (9.5-11.5) 06/10/18 14:35 INR 0.96 (0.5-1.4) 06/10/18 14:35 PTT (Actin FS) 27.6 SECONDS (26.0-38.0) 06/10/18 14:35 Sodium 141 mEq/L (136-145) 06/13/18 05:30 Potassium 3.4 mEq/L (3.5-5.1) L 06/13/18 05:30 Chloride 103 mEq/L (98-107) 06/13/18 05:30 Carbon Dioxide 30.8 mEq/L (21.0-31.0) 06/13/18 05:30 Anion Gap 10.6 (7.0-16.0) 06/13/18 05:30 BUN 22 mg/dL (7-25) 06/13/18 05:30 Creatinine 4.0 mg/dL (0.7-1.3) H 06/13/18 05:30 Est GFR ( Amer) TNP 06/13/18 05:30 Est GFR (Non-Af Amer) TNP 06/13/18 05:30 BUN/Creatinine Ratio 5.5 06/13/18 05:30 Glucose 90 mg/dL (70-105) 06/13/18 05:30 Calcium 8.9 mg/dL (8.6-10.3) 06/13/18 05:30 Triglycerides 102 mg/dL (<150) 06/11/18 05:20 Cholesterol 130 mg/dL (<200) 06/11/18 05:20 LDL Cholesterol Direct 69 mg/dL (75-193) L 06/11/18 05:20 HDL Cholesterol 36 mg/dL (23-92) 06/11/18 05:20 TSH 3.25 uIU/ml (0.34-5.60) 06/11/18 05:20 - Physical Exam Vitals and I&O: Vital Signs Temp 97.6 F 06/14/18 08:00 Pulse 93 06/14/18 08:00 Resp 18 06/14/18 08:00 BP 137/81 06/14/18 08:00 Pulse Ox 100 06/14/18 08:00 Intake & Output 06/13/18 06/14/18 06/14/18 18:59 06:59 18:59 Intake Total 600 240 240 Balance 600 240 240 Weight (lbs) 62.596 kg 62.596 kg 62.596 kg Intake: Oral 600 240 240 Other: # Voids 2 2 2 # Bowel Movements 0 1 1 Stool Characteristics Soft Formed Black Weight Source Bedscale Bedscale Bedscale Active Medications: Current Medications Aspirin (Aspirin Chewable) 81 mg PO DAILY [facility] Stop: 08/11/18 08:59 Last Admin: 06/13/18 10:22 Dose: 81 mg Atorvastatin Calcium (Lipitor) 10 mg PO HS [facility]; Protocol Stop: 08/10/18 20:59 Last Admin: 06/13/18 21:16 Dose: 10 mg Citalopram Hydrobromide (Celexa) 20 mg PO DAILY [facility]; Protocol Stop: 08/11/18 08:59 Last Admin: 06/13/18 10:22 Dose: 20 mg Docusate Sodium (Colace) 250 mg PO DAILY [facility] Stop: 08/11/18 08:59 Last Admin: 06/13/18 10:23 Dose: 250 mg Donepezil HCl (Aricept) 5 mg PO DAILY [facility] Stop: 08/11/18 08:59 Last Admin: 06/13/18 10:22 Dose: 5 mg Ferrous Sulfate (Iron) 325 mg PO BID [facility] Stop: 08/10/18 16:59 Last Admin: 06/13/18 18:05 Dose: 325 mg Finasteride (Proscar) 5 mg PO DAILY [facility]; Protocol Stop: 08/11/18 08:59 Last Admin: 06/13/18 10:21 Dose: 5 mg Folic Acid (Folate) 1 mg PO DAILY [facility] Stop: 08/11/18 08:59 Last Admin: 06/13/18 10:21 Dose: 1 mg Metoprolol Tartrate (Lopressor) 25 mg PO DAILY [facility] Stop: 08/11/18 08:59 Last Admin: 06/13/18 10:23 Dose: Not Given Midodrine (Proamatine) 5 mg PO PRN PRN PRN Reason: ON HD DAYS ONLY Stop: 08/13/18 08:59 Miscellaneous (Vte Chemical Prophylaxis Screen/ Admission) 1 ea [facility] PRN PRN PRN Reason: PROTOCOL Stop: 08/10/18 14:15 Olanzapine (Zyprexa) 2.5 mg PO QPM [facility]; Protocol Stop: 08/10/18 16:59 Last Admin: 06/13/18 18:05 Dose: 2.5 mg Pantoprazole Sodium (Protonix) 40 mg PO DAILY [facility] Stop: 08/11/18 08:59 Last Admin: 06/13/18 10:22 Dose: 40 mg Tamsulosin HCl (Flomax) 0.4 mg PO BID [facility] Stop: 08/10/18 16:59 Last Admin: 06/13/18 18:05 Dose: 0.4 mg General: weak, alert HEENT: NC/AT Neck: Supple Lungs: CTAB Cardiovascular: RRR, Normal S1, Normal S2 Abdomen: soft Extremities: clear, edema Neurological: no change - Procedures Procedures: Procedures Procedure Code Date BYPASS RIGHT BRACHIAL ARTERY TO UP ARM VEIN, OPEN APPROACH 44791SI 12/10/17 EXTIRPATION OF MATTER FROM R BRACH ART, OPEN APPROACH [id number] 06/10/18 FLUOROSCOPY OF RIGHT HEART USING LOW OSMOLAR CONTRAST [id number] 12/10/17 INSERTION OF INFUSION DEV INTO SUP VENA CAVA, PERC APPROACH [id number] 10/31/17 INSERTION OF INFUSION DEVICE INTO R ATRIUM, PERC APPROACH [id number] 12/10/17 PERFORMANCE OF URINARY FILTRATION, <6 HRS/DAY [id number] 12/10/17 REMOVAL OF INFUSION DEVICE FROM UPPER VEIN, SUBSTATION MECHANIC APPROACH [id number] 10/31/17 ULTRASONOGRAPHY OF SUPERIOR VENA CAVA, GUIDANCE [id number] 10/31/17 Internal Medicine Assmt/Plan - Assessment Assessment: av shunt malfunction s/p av shunt declotting esrd/hd - Plan Plan: as per order sheet
[2018-06-14] MEDS ORDERED: Bupivacaine 0.5% W/Ep 10 mL Vial ONE ×2 (10:59)
[2018-06-14] MEDS: Aspirin 81mg Chewable Tab PO SCH (11:16)
[2018-06-14] MEDS: Ferrous Sulfate 325 MG TAB PO SCH ×2 (11:18→16:43)
[2018-06-14] MEDS: Pantoprazole 40 mg EC Tab PO SCH (11:25)
--- NOTE | 2018-06-14 13:46 | General Progress Note ---
Subjective - Review of Systems Service Date: 06/14/18 Subjective: alert, verbal, wants to go home Objective - Results Result Diagrams: 06/13/18 05:30 06/13/18 05:30 Recent Labs: Laboratory Last Values WBC 5.7 Th/cmm (4.8-10.8) 06/13/18 05:30 RBC 2.85 Mil/cmm (3.80-5.80) L 06/13/18 05:30 Hgb 9.0 gm/dL (12-16) L 06/13/18 05:30 Hct 26.9 % (41.0-60) L 06/13/18 05:30 MCV 94.2 fl (80-99) 06/13/18 05:30 MCH 31.4 pg (27.0-31.0) H 06/13/18 05:30 MCHC Differential 33.3 pg (28.0-36.0) 06/13/18 05:30 RDW 12.2 % (11.5-20.0) 06/13/18 05:30 Plt Count 300 Th/cmm (150-400) 06/13/18 05:30 MPV 6.4 fl 06/13/18 05:30 Neutrophils % 65.9 % (40.0-80.0) 06/13/18 05:30 Lymphocytes % 19.5 % (20.0-50.0) L 06/13/18 05:30 Monocytes % 9.3 % (2.0-10.0) 06/13/18 05:30 Eosinophils % 3.7 % (0.0-5.0) 06/13/18 05:30 Basophils % 1.6 % (0.0-2.0) 06/13/18 05:30 PT 10.0 SECONDS (9.5-11.5) 06/10/18 14:35 INR 0.96 (0.5-1.4) 06/10/18 14:35 PTT (Actin FS) 27.6 SECONDS (26.0-38.0) 06/10/18 14:35 Sodium 141 mEq/L (136-145) 06/13/18 05:30 Potassium 3.4 mEq/L (3.5-5.1) L 06/13/18 05:30 Chloride 103 mEq/L (98-107) 06/13/18 05:30 Carbon Dioxide 30.8 mEq/L (21.0-31.0) 06/13/18 05:30 Anion Gap 10.6 (7.0-16.0) 06/13/18 05:30 BUN 22 mg/dL (7-25) 06/13/18 05:30 Creatinine 4.0 mg/dL (0.7-1.3) H 06/13/18 05:30 Est GFR ( Amer) TNP 06/13/18 05:30 Est GFR (Non-Af Amer) TNP 06/13/18 05:30 BUN/Creatinine Ratio 5.5 06/13/18 05:30 Glucose 90 mg/dL (70-105) 06/13/18 05:30 Calcium 8.9 mg/dL (8.6-10.3) 06/13/18 05:30 Triglycerides 102 mg/dL (<150) 06/11/18 05:20 Cholesterol 130 mg/dL (<200) 06/11/18 05:20 LDL Cholesterol Direct 69 mg/dL (75-193) L 06/11/18 05:20 HDL Cholesterol 36 mg/dL (23-92) 06/11/18 05:20 TSH 3.25 uIU/ml (0.34-5.60) 06/11/18 05:20 - Physical Exam Vitals and I&O: Vital Signs Temp 97.6 F 06/14/18 08:00 Pulse 87 06/14/18 11:17 Resp 20 06/14/18 12:52 BP 103/66 06/14/18 11:17 Pulse Ox 100 06/14/18 08:00 Intake & Output 06/13/18 06/14/18 06/14/18 18:59 06:59 18:59 Intake Total 600 240 240 Balance 600 240 240 Weight (lbs) 62.596 kg 62.596 kg 62.596 kg Intake: Oral 600 240 240 Other: # Voids 2 2 2 # Bowel Movements 0 1 1 Stool Characteristics Soft Soft Formed Formed Black Black Weight Source Bedscale Bedscale Bedscale Active Medications: Current Medications Aspirin (Aspirin Chewable) 81 mg PO DAILY [facility] Stop: 08/11/18 08:59 Last Admin: 06/14/18 11:16 Dose: 81 mg Atorvastatin Calcium (Lipitor) 10 mg PO HS [facility]; Protocol Stop: 08/10/18 20:59 Last Admin: 06/13/18 21:16 Dose: 10 mg Citalopram Hydrobromide (Celexa) 20 mg PO DAILY [facility]; Protocol Stop: 08/11/18 08:59 Last Admin: 06/14/18 11:18 Dose: 20 mg Docusate Sodium (Colace) 250 mg PO DAILY [facility] Stop: 08/11/18 08:59 Last Admin: 06/14/18 11:17 Dose: 250 mg Donepezil HCl (Aricept) 5 mg PO DAILY [facility] Stop: 08/11/18 08:59 Last Admin: 06/14/18 11:16 Dose: 5 mg Ferrous Sulfate (Iron) 325 mg PO BID [facility] Stop: 08/10/18 16:59 Last Admin: 06/14/18 11:18 Dose: 325 mg Finasteride (Proscar) 5 mg PO DAILY [facility]; Protocol Stop: 08/11/18 08:59 Last Admin: 06/14/18 11:16 Dose: 5 mg Folic Acid (Folate) 1 mg PO DAILY [facility] Stop: 08/11/18 08:59 Last Admin: 06/14/18 11:16 Dose: 1 mg Metoprolol Tartrate (Lopressor) 25 mg PO DAILY [facility] Stop: 08/11/18 08:59 Last Admin: 06/14/18 11:17 Dose: 25 mg Midodrine (Proamatine) 5 mg PO PRN PRN PRN Reason: ON HD DAYS ONLY Stop: 08/13/18 08:59 Miscellaneous (Vte Chemical Prophylaxis Screen/ Admission) 1 ea [facility] PRN PRN PRN Reason: PROTOCOL Stop: 08/10/18 14:15 Olanzapine (Zyprexa) 2.5 mg PO QPM [facility]; Protocol Stop: 08/10/18 16:59 Last Admin: 06/13/18 18:05 Dose: 2.5 mg Pantoprazole Sodium (Protonix) 40 mg PO DAILY [facility] Stop: 08/11/18 08:59 Last Admin: 06/14/18 11:25 Dose: 40 mg Tamsulosin HCl (Flomax) 0.4 mg PO BID [facility] Stop: 08/10/18 16:59 Last Admin: 06/14/18 11:25 Dose: 0.4 mg General: Alert, No acute distress HEENT: Atraumatic, Mucous membr. moist/pink Neck: Supple, +2 carotid pulse wo bruit Cardiovascular: Regular rate, Normal S1, Normal S2 Lungs: Clear to auscultation Abdomen: Bowel sounds, Soft Extremities: Other (soaked w/ blood right AVF dressing), no Edema Neurological: Sensation intact Skin: no Rash Psych/Mental Status: Mood NL - Procedures Procedures: Procedures Procedure Code Date BYPASS RIGHT BRACHIAL ARTERY TO UP ARM VEIN, OPEN APPROACH [id number] 12/10/17 EXTIRPATION OF MATTER FROM R BRACH ART, OPEN APPROACH [id number] 06/10/18 FLUOROSCOPY OF RIGHT HEART USING LOW OSMOLAR CONTRAST [id number] 12/10/17 INSERTION OF INFUSION DEV INTO SUP VENA CAVA, PERC APPROACH [id number] 10/31/17 INSERTION OF INFUSION DEVICE INTO R ATRIUM, PERC APPROACH [id number] 12/10/17 PERFORMANCE OF URINARY FILTRATION, <6 HRS/DAY [id number] 12/10/17 REMOVAL OF INFUSION DEVICE FROM UPPER VEIN, DEPARTMENT CHAIR APPROACH [id number] 10/31/17 ULTRASONOGRAPHY OF SUPERIOR VENA CAVA, GUIDANCE [id number] 10/31/17 Assessment/Plan - Problem List Patient Problems: All Active Problems COUGH, CONGESTION, WEAKNESS, BAD GRAFT (Acute) - Assessment Assessment: S/P Thrombectomy right AVF ESRD on HD Alzheimer Dementia BPH Dyslipidemia Psych Ess Htn - Plan Plan: Lab - Result Diagrams 06/12/18 05:00 06/12/18 05:00 Current Medications Aspirin (Aspirin Chewable) 81 mg PO DAILY [facility] Stop: 08/11/18 08:59 Last Admin: 06/12/18 09:40 Dose: 81 mg Atorvastatin Calcium (Lipitor) 10 mg PO HS [facility]; Protocol Stop: 08/10/18 20:59 Last Admin: 06/11/18 21:38 Dose: 10 mg Citalopram Hydrobromide (Celexa) 20 mg PO DAILY [facility]; Protocol Stop: 08/11/18 08:59 Last Admin: 06/12/18 09:40 Dose: 20 mg Docusate Sodium (Colace) 250 mg PO DAILY [facility] Stop: 08/11/18 08:59 Last Admin: 06/12/18 09:40 Dose: 250 mg Donepezil HCl (Aricept) 5 mg PO DAILY [facility] Stop: 08/11/18 08:59 Last Admin: 06/12/18 09:40 Dose: 5 mg Ferrous Sulfate (Iron) 325 mg PO BID [facility] Stop: 08/10/18 16:59 Last Admin: 06/12/18 09:40 Dose: 325 mg Finasteride (Proscar) 5 mg PO DAILY [facility]; Protocol Stop: 08/11/18 08:59 Last Admin: 06/12/18 09:40 Dose: 5 mg Folic Acid (Folate) 1 mg PO DAILY [facility] Stop: 08/11/18 08:59 Last Admin: 06/12/18 09:40 Dose: 1 mg Heparin Sodium (Porcine) (Heparin) 5,000 units SUBQ Q12H [facility] Stop: 08/10/18 20:59 Last Admin: 06/12/18 09:39 Dose: Not Given Albumin Human (Albuminar 25%) 25 gm in 100 mls @ 50 mls/hr IV PRN PRN PRN Reason: BP Support During HD Stop: 06/12/18 23:59 Metoprolol Tartrate (Lopressor) 25 mg PO DAILY [facility] Stop: 08/11/18 08:59 Last Admin: 06/12/18 09:41 Dose: 25 mg Midodrine (Proamatine) 5 mg PO PRN PRN PRN Reason: ON HD DAYS ONLY Stop: 08/13/18 08:59 Miscellaneous (Vte Chemical Prophylaxis Screen/ Admission) 1 ea MC PRN PRN PRN Reason: PROTOCOL Stop: 08/10/18 14:15 Olanzapine (Zyprexa) 2.5 mg PO QPM [facility]; Protocol Stop: 08/10/18 16:59 Last Admin: 06/11/18 16:47 Dose: 2.5 mg Pantoprazole Sodium (Protonix) 40 mg PO DAILY [facility] Stop: 08/11/18 08:59 Last Admin: 06/12/18 09:40 Dose: 40 mg Tamsulosin HCl (Flomax) 0.4 mg PO BID [facility] Stop: 08/10/18 16:59 Last Admin: 06/12/18 09:40 Dose: 0.4 mg Lab - Result Diagrams 06/13/18 05:30 06/13/18 05:30 had Thrombectomy yesterday had dialysis today w/o any further bleed did not complete dialysis last nite due to hypotension replace K refused labs today ok for DC today
--- NOTE | 2018-06-15 13:30 | Pathology Report ---
[id number] Collection Date: 06/12/2018 Surgeon: Dr. Helen Santos Specimen Description: Blood clot, right arm AV shunt. Gross Description: Received in formalin are multiple portions of reddish brown blood clot ranging from 1.5 to 3.5 cm in length x up to 0.8 cm in diameter. Sectioning shows clotted blood with no other tissue fragments identified. Installer sections are submitted in one cassette. Microscopic Description: The histologic sections show clotted blood with a small amount of fibrin. Diagnosis: Blood clot consistent with thrombectomy, right arm AV shunt. PSYCHIATRIC# [id number]
[2018-06-15 15:09] LABS: HEP A AB IGM Negative (Negative); HEP B CORE IGM Negative (Negative); HEP B SURFACE AG QL Negative (Negative); HEP C ANTIBODY 0.1 s/co ratio (0.0-0.9)
== END 2018-06-14 18:15 | disposition home or self-care (01) | DRG 252 ==
LOC: ER 14:23 → TELE 16:20
PROVIDERS: ADMIT Internal Medicine; ATTEND Internal Medicine
PROC: 03C70ZZ Extirpation of Matter from Right Brachial Artery, Open Approach (ICD-10-PCS; principal; 2018-06-12)
PROC: B3111ZZ Fluoroscopy of Right Brachiocephalic-Subclavian Artery using Low Osmolar Contrast (ICD-10-PCS; 2018-06-12)
PROC: 5A1D70Z Performance of Urinary Filtration, Intermittent, Less than 6 Hours Per Day (ICD-10-PCS; 2018-06-14)
DX: T82.818A Embolism due to vascular prosthetic devices, implants and grafts, initial encounter (principal); N18.6 End stage renal disease; I12.0 Hypertensive chronic kidney disease with stage 5 chronic kidney disease or end stage renal disease; T82.590A Other mechanical complication of surgically created arteriovenous fistula, initial encounter; G30.9 Alzheimer's disease, unspecified; F02.80 Dementia in other diseases classified elsewhere, unspecified severity, without behavioral disturbance, psychotic disturbance, mood disturbance, and anxiety; N40.0 Benign prostatic hyperplasia without lower urinary tract symptoms; K21.9 Gastro-esophageal reflux disease without esophagitis; J20.8 Acute bronchitis due to other specified organisms; E78.5 Hyperlipidemia, unspecified; F29 Unspecified psychosis not due to a substance or known physiological condition; D50.9 Iron deficiency anemia, unspecified; I95.9 Hypotension, unspecified; Y83.8 Other surgical procedures as the cause of abnormal reaction of the patient, or of later complication, without mention of misadventure at the time of the procedure; Y92.89 Other specified places as the place of occurrence of the external cause
CPT/HCPCS: 36415-UA; 71045-TC; 76000-TC; 80048-TC; 80061-TC; 80074-90; 84443-TC; 85025-TC; 85610-TC; 85730-TC; 90799; 93005; J0690; J1644; J1940; J2704; J3010; J7030; Q9967; V2790; X5716; Z7610

== ENCOUNTER 2018-06-15 14:29 | Inpatient (IN) | payer MEDICARE, BC ==
--- NOTE | 2018-06-15 14:43 | ED Physician Chart ---
ED Chief Complaint/HPI - Patient Information Date Seen:: 06/15/18 Time Seen:: 14:30 Chief Complaint:: Dysfunctional Catheter History of Present Illness:: onset x one day of a dysfunctional dialysis catheter; no report of trauma, H/As , neck pain, C/P, SOB, Abd. Pain, or urinary s/s Allergies:: Allergies Allergy/AdvReac Type Severity Reaction Status Date / Time No Known Allergies Allergy Verified 10/31/17 21:13 Historian:: Patient, EMS Review:: Nurse's Note Reviewed, Old Chart Reviewed, EMS run form Reviewed ED Review of Systems - Review of Systems General/Constitutional: No fever, No chills, No weight loss, No weakness, No diaphoresis, No edema, No loss of appetite Skin: No skin lesions, No rash, No bruising Head: No headache, No light-headedness Eyes: No loss of vision, No pain, No diplopia ENT: No earache, No nasal drainage, No sore throat, No tinnitus Neck: No neck pain, No swelling, No thyromegaly, No stiffness, No mass noted Cardio Vascular: No chest pain, No palpitations, No PND, No orthopnea, No edema Pulmonary: No SOB, No cough, No sputum, No wheezing GI: No nausea, No vomiting, No diarrhea, No pain, No melena, No hematochezia, No constipation, No hematemesis G/U: No dysuria, No frequency, No hematuria, No nacturia Musculoskeletal: No bone or joint pain, No back pain, No muscle pain Endocrine: No polyuria, No polydipsia Psychiatric: No prior psych history, No depression, No anxiety, No suicidal ideation, No homicidal ideation, No auditory hallucination, No visual hallucination Hematopoietic: No bruising, No lymphadenopathy Allergic/Immuno: No urticaria, No angioedema Neurological: No syncope, No focal symptoms, No weakness, No paresthesia, No headache, No seizure, No dizziness, No confusion, No vertigo ED Past Medical History - Past Medical History Obtainable: Yes Past Medical History: HTN, Dyslipidemia, ESRD Family History: HTN Social History: Non Smoker, No Alcohol, No Drug Use, Single, Care Facility Surgical History: other (Dialysis Catheter Insertion) Psychiatricy History: None Medication: Reviewed Family Medical History - Family Member Mother History Unknown: Yes Ethnicity: Non- Living Status: ED Physical Exam - Physical Examination General/Constitutional: Awake, Well-developed, well-nourished, Alert, No distress, GCS 15, Non-toxic appearing, Ambulatory Head: Atraumatic Eyes: Lids, conjuctiva normal, PERRL, EOMI Skin: Nl inspection, No rash, No skin lesions, No ecchymosis, Well hydrated, No lymphadenopathy Other Skin comments:: + Dialysis Catheter Dysfunction ENMT: External ears, nose nl, TM canals nl, Nasal exam nl, Lips, teeth, gums nl , Oropharynx nl, Tonsils nl Neck: Nontender, Full ROM w/o pain, No JVD, No nuchal rigidity, No bruit, No mass, No stridor Respiratory: Nl effort/Exclusion, Clear to Auscultation, No Wheeze/Rhonchi/Rales Cardio Vascular: RRR, No murmur, gallop, rubs, NL S1 S2, Carotid/Femoral/Distal pulses equal bilaterally GI: No tenderness/rebounding/guarding, No organomegaly, No hernia, Normal BS's, Nondistended, No mass/bruits, No McBurney tenderness, Rectum exam nl : No CVA tenderness Extremities: No tenderness or effusion, Full ROM, normal strength in all extremities, No edema, Normal digits & nails Neuro/Psych: Alert/oriented, DTR's symmetric, Normal sensory exam, Normal motor strength, Judgement/insight normal, Mood normal, Normal gait, No focal deficits Misc: Normal back, No paraspinal tenderness ED Labs/Radiology/EKG Results - Lab Results Comments:: Reviewed - EKG Interpretations EKG Time:: 14:52 Rate & Rhythm: 64; NSR Comments:: T-Wave Inversions; non-specific st-t changes ED Septic Shock - . Is Septic Shock (SBP<90, OR Lactate>4 mmol\L) present?: No ED Reassessment (Disposition) - Reassessment Reassessment Condition:: Improved - Diagnosis Diagnosis:: Dialysis Catheter Dysfunction; Myocardial Ischemia; Anemia; ESRD - Aftercare/Follow up Instructions Aftercare/Follow-Up Instructions:: Counseled pt regarding lab results/diagnosis & need follow up, Counseled pt & family regarding lab results/diagnosis & need follow up - Patient Disposition Discharge/Transfer:: Acute Care w/in this hosp Accepting Physician:: Dr. Wiggins Time Called:: 1629 Time Responded:: 16:30 Admitted to:: Telemetry Spoke to:: Dr. Wiggins Admitting Medical Physician:: Dr. Wiggins Condition at Disposition:: Stable, Improved
[2018-06-15 15:16] LABS: % BASOPHILS 1.1 % (0.0-2.0); % EOSINOPHILS 3.8 % (0.0-5.0); % LYMPHOCYTES 9.6 % (20.0-50.0); % MONOCYTES 6.1 % (2.0-10.0); % NEUTROPHILS 79.4 % (40.0-80.0); BASOPHILE ABSOLUTE 0.1 Th/cumm (0-0.2); EOSINOPHILE ABSOLUTE 0.3 Th/cmm (0.1-0.4); HEMATOCRIT 27.8 % (41.0-60); HEMOGLOBIN 9.4 gm/dL (12-16); LYMPHOCYTE ABSOLUTE 0.9 Th/cmm (1.5-3.0); MEAN CELL VOLUME 94.3 fl (80-99); MEAN CORPUSCULAR HGB CONC 33.9 pg (28.0-36.0); MEAN PLATELET VOLUME 5.8 fl; MONOCYTE ABSOLUTE 0.5 Th/cmm (0.3-1.0); NEUTROPHILE ABSOLUTE 7.1 Th/cmm (1.8-8.0); PLATELET COUNT 365 Th/cmm (150-400); RED BLOOD COUNT 2.94 Mil/cmm (3.80-5.80); RED CELL DISTRIBUTION WIDTH 12.8 % (11.5-20.0); WHITE BLOOD COUNT 8.9 Th/cmm (4.8-10.8)
[2018-06-15 15:35] LABS: TROP I 0.01 ng/mL (0.01-0.05)
[2018-06-15 15:40] LABS: PROTHROMBIN TIME (TEST) 10.4 SECONDS (9.5-11.5)
[2018-06-15 15:46] LABS: ALBUMIN 3.4 gm/dL (4.2-5.5); ALKALINE PHOSPHATASE 140 U/L (34-104); ANION GAP 13.1 (7.0-16.0); BILIRUBIN,TOTAL 0.3 mg/dL (0.3-1.0); BUN - UREA NITROGEN 30 mg/dL (7-25); CALCIUM SERUM 9.4 mg/dL (8.6-10.3); CARBON DIOXIDE 29.3 mEq/L (21.0-31.0); CHLORIDE 102 mEq/L (98-107); CREATININE KINASE 22 U/L (30-223); GLUCOSE 105 mg/dL (70-105); POTASSIUM SERUM 4.4 mEq/L (3.5-5.1); SGOT 12 U/L (13-39); SGPT/ALT 4 U/L (7-52); SODIUM SERUM 140 mEq/L (136-145); TOTAL PROTEIN,SERUM 6.8 gm/dL (6.0-8.3)
[2018-06-15 15:49] LABS: CREATININE - SERUM 4.8 mg/dL (0.7-1.3)
[2018-06-15 16:48] LABS: URINE SOURCE MIDSTREAM
[2018-06-15 16:49] LABS: URINE BILIRUBIN NEGATIVE (NEGATIVE); URINE BLOOD NEGATIVE (NEGATIVE); URINE GLUCOSE (UA) NEGATIVE (NEGATIVE); URINE KETONE NEGATIVE (NEGATIVE); URINE LEUKOCYTE ESTERASE TRACE (NEGATIVE); URINE MICROSCOPIC INDICATED? YES; URINE NITRATE NEGATIVE (NEGATIVE); URINE PH 7.5 (4.6 - 8.0); URINE PROTEIN 100 mg/dL (NEGATIVE); URINE UROBILINOGEN 0.2 E.U./dL (0.2 - 1.0)
[2018-06-15 17:09] LABS: URINE CLARITY CLEAR (CLEAR); URINE COLOR YELLOW
[2018-06-15 17:21] LABS: URINE BACTERIA FEW /hpf (NONE SEEN); URINE EPITHELIAL CELLS FEW /lpf (FEW); URINE RBC 0-2 /hpf (0-5)
[2018-06-16 06:56] LABS: % BASOPHILS 1.8 % (0.0-2.0); % EOSINOPHILS 5.4 % (0.0-5.0); % LYMPHOCYTES 18.2 % (20.0-50.0); % MONOCYTES 7.8 % (2.0-10.0); % NEUTROPHILS 66.8 % (40.0-80.0); BASOPHILE ABSOLUTE 0.1 Th/cumm (0-0.2); EOSINOPHILE ABSOLUTE 0.4 Th/cmm (0.1-0.4); HEMATOCRIT 26.8 % (41.0-60); HEMOGLOBIN 9.2 gm/dL (12-16); LYMPHOCYTE ABSOLUTE 1.2 Th/cmm (1.5-3.0); MEAN CELL VOLUME 94.3 fl (80-99); MEAN CORPUSCULAR HEMOGLOBIN 32.2 pg (27.0-31.0); MEAN CORPUSCULAR HGB CONC 34.2 pg (28.0-36.0); MEAN PLATELET VOLUME 6.7 fl; MONOCYTE ABSOLUTE 0.5 Th/cmm (0.3-1.0); NEUTROPHILE ABSOLUTE 4.3 Th/cmm (1.8-8.0); PLATELET COUNT 312 Th/cmm (150-400); RED BLOOD COUNT 2.84 Mil/cmm (3.80-5.80); RED CELL DISTRIBUTION WIDTH 12.7 % (11.5-20.0); WHITE BLOOD COUNT 6.5 Th/cmm (4.8-10.8)
[2018-06-16 07:03] LABS: PROTHROMBIN TIME (TEST) 10.4 SECONDS (9.5-11.5)
[2018-06-16 07:17] LABS: ANION GAP 13.9 (7.0-16.0); BUN - UREA NITROGEN 35 mg/dL (7-25); CALCIUM SERUM 9.2 mg/dL (8.6-10.3); CARBON DIOXIDE 26.5 mEq/L (21.0-31.0); CHLORIDE 106 mEq/L (98-107); GLUCOSE 87 mg/dL (70-105); POTASSIUM SERUM 4.4 mEq/L (3.5-5.1); SODIUM SERUM 142 mEq/L (136-145)
[2018-06-16 08:03] LABS: CREATININE - SERUM 5.6 mg/dL (0.7-1.3)
--- NOTE | 2018-06-16 17:44 | History & Physical ---
ADMIT DATE: 06/15/2018 HISTORY OF PRESENT ILLNESS: The patient was recently admitted here for AV shunt clotted, which was repaired, and the patient was doing okay. He was on hemodialysis and was sent back to the board and care. Apparently, he got a dysfunctional catheter again and came to the Emergency Room, from there he was admitted. PAST MEDICAL HISTORY: The patient is known to have history of hypertension, history of diabetes, history of chronic renal failure on dialysis, history of CVA, left hemiparesis, and also history of ESRD. REVIEW OF SYSTEMS: Difficult to obtain. PHYSICAL EXAMINATION: HEAD: Normal. ENT: Normal. NECK: Supple, nontender. LUNGS: Clear. CARDIOVASCULAR SYSTEM: S1, S2 heard. ABDOMEN: Soft. Bowel sounds are heard. CENTRAL NERVOUS SYSTEM: Grossly normal. LABORATORY DATA: EKG: T-wave inversions noted. DIAGNOSES: Catheter dysfunction, end-stage renal disease, rule out myocardial ischemia, anemia, history of hypertension, history of cardiovascular disease, history of hemiparesis was made. PLAN: The patient is being admitted. I will call Dr. Frankel to see the patient, and a vascular surgeon to come and repair the AV shunt, and I will follow the patient closely. JOB# [id number]
[2018-06-16] MEDS: Atorvastatin Calcium 10 MG TAB PO SCH (21:50)
[2018-06-17] MEDS ORDERED: Albumin 25% 25gm/100mL 25 GM/100 ML BTL IV PRN
[2018-06-17] MEDS ORDERED: D5-0.45NS 1,000 ML IV SCH (00:01)
--- NOTE | 2018-06-17 00:45 | Consultation ---
DATE OF CONSULTATION: 06/16/2018 ATTENDING PHYSICIAN: Ivana Wiggins MD CORRECTIONS SPECIALIST: Jim Frankel MD. REASON FOR CONSULTATION: Electrolyte imbalance and fluid management. HISTORY OF PRESENT ILLNESS: This is an 78-year-old male with past medical history of end-stage renal disease on hemodialysis, who was brought in because of a clotted right AV fistula. Three days prior to admission, the patient was admitted because of a clotted AV fistula. He underwent a successful thrombectomy and he was dialyzed after this. He was stabilized and was subsequently discharged. A few hours prior to admission, he had his outpatient dialysis as scheduled. However, staff noted that his AV fistula has re-clotted. He was then brought to the Emergency Room. His white count was 8.9 with hemoglobin/hematocrit of 9.4/27.8. PAST MEDICAL HISTORY: 1. End-stage renal disease on hemodialysis. 2. Essential hypertension. 3. Dyslipidemia. 4. BPH. 5. Psychosis. CURRENT MEDICATIONS: Currently on aspirin, atorvastatin, docusate sodium, donepezil. ALLERGIES: No known drug allergies. SOCIAL AND FAMILY HISTORY: I was not able to obtain directly from the patient because of his psychosis and slow mentation. REVIEW OF SYSTEMS: Again, I was not able to decipher directly from the patient because of the same reason. PHYSICAL EXAMINATION: GENERAL: The patient is awake, somewhat anxious. VITAL SIGNS: His blood pressure is 112/68, pulse 71, temperature 98.5 degrees. SKIN: Good turgor, warm, no rash, no jaundice appreciated. HEENT: Head normocephalic, atraumatic. Eyes: Extraocular muscles intact. Pupils equal, round, reactive to light and accommodates. Anicteric sclerae. Pale conjunctivae. Nose, midline nasal septum. Mouth, moist mucosa with poor dentition. NECK: Supple, no adenopathy, no thyromegaly, no bruits. Trachea palpated in the midline. CHEST AND CARDIOVASCULAR: S1, S2. No rub, murmur nor gallop appreciated. Point of maximal impulse fifth intercostal space, left midclavicular line. No abdominal or femoral bruits appreciated. LUNGS: Equal expansion. No use of accessory muscles. No supraclavicular retractions. Decreased breath sounds. No rales or wheezes appreciated. ABDOMEN: Flat, soft. Positive for bowel sounds. No bruits either diastolic or systolic. RECTAL: Lax sphincter tone. GENITOURINARY: Normal appearing male genitalia. MUSCULOSKELETAL: No effusions present in his joints, but unable to assess his range of motion. EXTREMITIES: No evidence of any edema, cyanosis or clubbing. He has atrophic muscles of his lower extremities. He has adequate control. NEUROLOGIC: Since the patient has underlying psychosis as well as a depressed mental status, he was not able to follow my neuro commands, so I was not able to pursue further my neuro exam. LABORATORY DATA: Did reveal a white count 6.5, hemoglobin 9.2, hematocrit 26.8, platelets 312, polys is 66.8%. Sodium 142, potassium 4.4, chloride 106, CO2 of 26, BUN 35, creatinine 5.6, glucose 87, calcium 9.2. IMPRESSION: 1. End-stage renal disease, on hemodialysis. 2. Re-clotted right arteriovenous fistula. 3. Essential hypertension with chronic kidney disease. 4. Dyslipidemia. 5. Benign prostatic hyperplasia. 6. Psychosis. PLAN: 1. Vascular surgeon consult. 2. Hemodialysis post thrombectomy. 3. Fluid restriction. 4. Follow up electrolytes, CBC. JOB# [id number]
--- NOTE | 2018-06-17 06:09 | Consultation ---
DATE OF CONSULTATION: 06/16/2018 SURGICAL CONSULTATION NOTE TIME: 8:58 p.m. HISTORY OF PRESENT ILLNESS: The patient is an 78-year-old male with end-stage renal disease. Reportedly, has a right arm AV fistula, which is nonfunctional at this time, thrombosed, had recently declotted and was sent back to the [facility] facility, but came back because the patient has no hemodialysis access at this time, needs a new hemodialysis access. Dr. Frankel is the consulting nurses superintendent, who is yet to see the patient. The patient with hypertension, dyslipidemia and end-stage renal disease. The patient with history of hypertension as well to. SOCIAL HISTORY: He denies smoking, alcohol or recreational drug use. PAST MEDICAL HISTORY: Hypertension, diabetes, chronic renal failure on dialysis, history of CVA with left hemiparesis and history of end-stage renal disease. REVIEW OF SYSTEMS: Unable to obtain the review of systems. PHYSICAL EXAMINATION: VITAL SIGNS: 56 kilograms. BMI mean of 20. Afebrile. Vital signs otherwise stable. GENERAL: Resting in bed comfortably, in no acute distress. He is awake, follows commands. No acute distress. HEENT AND NECK: Within normal limits. CHEST: Clear to auscultation bilaterally. He has wounds related to old right IJ catheter likely tunneled. He has a right arm AV fistula, there is no obvious bruit or thrill, appears clotted and thrombosed. NECK: Otherwise within normal limits. There are no carotid bruits or JVD. ABDOMEN: Soft, nontender, nondistended. NEUROVASCULAR: Otherwise normal. No CVA, flank, or paraspinal tenderness. LABORATORY DATA: White blood cell count 6.5, H and H is 9 and 26.8, platelet count 312. Potassium 4.4, bicarbonate is 26.5. BUN and creatinine 35 and 5.6. Coags are normal. Urine shows trace leukocyte esterase and 0 to 2 red blood cells, few urine bacteria. MEDICATIONS: The patient on aspirin 81 mg, Flomax. IMPRESSION AND PLAN: The patient is an 78-year-old male with reported history of hypertension, diabetes, chronic renal failure on dialysis, history of CVA, left hemiparesis and history of end-stage renal disease. The patient reportedly has a right arm arteriovenous fistula, which is thrombosed, previous efforts to declot it were initially successful, but then re-clotted again. The patient has no viable dialysis access at this time. Reportedly, Dr. Frankel is to follow this patient and has been consulted, although he has not left a note yet. Reportedly, Surgery has been consulted for dialysis access. The patient is agreeable to new catheter placement. The risks and benefits of the procedure explained, however, the hospital does not have the supplies set up at this time, and based on the labs, it does not appear to be urgent emergency situation at this point, also Dr. Frankel has not evaluated the patient and has not formally ordered the catheter placement or dialysis yet, so we will obtain a consent for dialysis catheter placement and will ask the nursing supervisor dyer to notify the operating room team tomorrow to set up the supplies for the catheter and this can be placed some time hopefully tomorrow. JOB# [id number]
--- NOTE | 2018-06-17 08:37 | Diagnostic Imaging Report ---
Portable chest x-ray Time: 0 825 History: Preop Allowing for portable technique the heart size is normal. No focal pulmonary parenchymal processes. No hilar or mediastinal abnormalities. Mild right basilar atelectasis Impression: No acute abnormalities.
[2018-06-17] MEDS ORDERED: Aspirin 81mg Chewable Tab PO SCH (09:00)
[2018-06-17] MEDS: Ferrous Sulfate 325 MG TAB PO SCH ×2 (09:29→16:47)
[2018-06-17] MEDS: Pantoprazole 40 mg EC Tab PO SCH (09:29)
--- NOTE | 2018-06-17 12:08 | Internal Medicine Prog Note ---
Internal Medicine Subjective - Subjective Service Date: 06/17/18 Patient seen and examined:: with staff Internal Medicine Objective - Results Result Diagrams: 06/16/18 05:30 06/16/18 05:30 Recent Labs: Laboratory Last Values WBC 6.5 Th/cmm (4.8-10.8) 06/16/18 05:30 RBC 2.84 Mil/cmm (3.80-5.80) L 06/16/18 05:30 Hgb 9.2 gm/dL (12-16) L 06/16/18 05:30 Hct 26.8 % (41.0-60) L 06/16/18 05:30 MCV 94.3 fl (80-99) 06/16/18 05:30 MCH 32.2 pg (27.0-31.0) H 06/16/18 05:30 MCHC Differential 34.2 pg (28.0-36.0) 06/16/18 05:30 RDW 12.7 % (11.5-20.0) 06/16/18 05:30 Plt Count 312 Th/cmm (150-400) 06/16/18 05:30 MPV 6.7 fl 06/16/18 05:30 Neutrophils % 66.8 % (40.0-80.0) 06/16/18 05:30 Lymphocytes % 18.2 % (20.0-50.0) L 06/16/18 05:30 Monocytes % 7.8 % (2.0-10.0) 06/16/18 05:30 Eosinophils % 5.4 % (0.0-5.0) H 06/16/18 05:30 Basophils % 1.8 % (0.0-2.0) 06/16/18 05:30 PT 10.4 SECONDS (9.5-11.5) 06/16/18 05:30 INR 1.00 (0.5-1.4) 06/16/18 05:30 PTT (Actin FS) 25.0 SECONDS (26.0-38.0) L 06/16/18 05:30 Sodium 142 mEq/L (136-145) 06/16/18 05:30 Potassium 4.4 mEq/L (3.5-5.1) 06/16/18 05:30 Chloride 106 mEq/L (98-107) 06/16/18 05:30 Carbon Dioxide 26.5 mEq/L (21.0-31.0) 06/16/18 05:30 Anion Gap 13.9 (7.0-16.0) 06/16/18 05:30 BUN 35 mg/dL (7-25) H 06/16/18 05:30 Creatinine 5.6 mg/dL (0.7-1.3) H* 06/16/18 05:30 Est GFR ( Amer) TNP 06/16/18 05:30 Est GFR (Non-Af Amer) TNP 06/16/18 05:30 BUN/Creatinine Ratio 6.3 06/16/18 05:30 Glucose 87 mg/dL (70-105) 06/16/18 05:30 Whole Bld Lactic Acid 1.25 mmol/L (0.60-1.99) 06/15/18 15:00 Calcium 9.2 mg/dL (8.6-10.3) 06/16/18 05:30 Total Bilirubin 0.3 mg/dL (0.3-1.0) 06/15/18 15:00 AST 12 U/L (13-39) L 06/15/18 15:00 ALT 4 U/L (7-52) L 06/15/18 15:00 Alkaline Phosphatase 140 U/L (34-104) H 06/15/18 15:00 Creatine Kinase 22 U/L (30-223) L 06/15/18 15:00 Troponin I 0.01 ng/mL (0.01-0.05) 06/15/18 15:00 Total Protein 6.8 gm/dL (6.0-8.3) 06/15/18 15:00 Albumin 3.4 gm/dL (4.2-5.5) L 06/15/18 15:00 Globulin 3.4 gm/dL 06/15/18 15:00 Albumin/Globulin Ratio 1.0 (1.0-1.8) 06/15/18 15:00 Urine Source MIDSTREAM 06/15/18 16:40 Urine Color YELLOW 06/15/18 16:40 Urine Clarity CLEAR (CLEAR) 06/15/18 16:40 Urine pH 7.5 (4.6 - 8.0) 06/15/18 16:40 Ur Specific [place] 1.015 (1.005-1.030) 06/15/18 16:40 Urine Protein 100 mg/dL (NEGATIVE) H 06/15/18 16:40 Urine Glucose (UA) NEGATIVE mg/dL (NEGATIVE) 06/15/18 16:40 Urine Ketones NEGATIVE mg/dL (NEGATIVE) 06/15/18 16:40 Urine Blood NEGATIVE (NEGATIVE) 06/15/18 16:40 Urine Nitrate NEGATIVE (NEGATIVE) 06/15/18 16:40 Urine Bilirubin NEGATIVE (NEGATIVE) 06/15/18 16:40 Urine Urobilinogen 0.2 E.U./dL (0.2 - 1.0) 06/15/18 16:40 Ur Leukocyte Esterase TRACE (NEGATIVE) H 06/15/18 16:40 Urine RBC 0-2 /hpf (0-5) H 06/15/18 16:40 Urine WBC 2-5 /hpf (0-5) 06/15/18 16:40 Ur Epithelial Cells FEW /lpf (FEW) 06/15/18 16:40 Urine Bacteria FEW /hpf (NONE SEEN) 06/15/18 16:40 - Physical Exam Vitals and I&O: Vital Signs Temp 98.6 F 06/17/18 09:09 Pulse 74 06/17/18 09:29 Resp 18 06/17/18 09:09 BP 131/82 06/17/18 09:29 Pulse Ox 96 06/17/18 09:09 Intake & Output 06/16/18 06/17/18 06/17/18 18:59 06:59 18:59 Intake Total 480 400 Output Total 0 Balance 480 400 Weight (lbs) 124 lb 124 lb Intake: Oral 200 400 Albumin 280 Output: Urine 0 Other: # Bowel Movements 0 Weight Source Bedscale Estimated Active Medications: Current Medications Atorvastatin Calcium (Lipitor) 10 mg PO HS [facility]; Protocol Stop: 08/15/18 20:59 Last Admin: 06/16/18 21:50 Dose: Not Given Docusate Sodium (Colace) 250 mg PO DAILY [facility] Stop: 08/16/18 08:59 Last Admin: 06/17/18 09:29 Dose: 250 mg Donepezil HCl (Aricept) 5 mg PO DAILY [facility] Stop: 08/16/18 08:59 Last Admin: 06/17/18 09:29 Dose: 5 mg Ferrous Sulfate (Iron) 325 mg PO BID [facility] Stop: 08/16/18 08:59 Last Admin: 06/17/18 09:29 Dose: 325 mg Finasteride (Proscar) 5 mg PO DAILY [facility]; Protocol Stop: 08/16/18 08:59 Last Admin: 06/17/18 09:29 Dose: 5 mg Folic Acid (Folate) 1 mg PO DAILY [facility] Stop: 08/16/18 08:59 Last Admin: 06/17/18 09:29 Dose: 1 mg Heparin Sodium (Porcine) (Heparin) 2,000 units HD UD [facility] Stop: 06/18/18 00:00 Last Admin: 06/17/18 09:29 Dose: Not Given Albumin Human (Albuminar 25%) 25 gm in 100 mls @ 50 mls/hr IV PRN PRN PRN Reason: BP Support During HD Metoprolol Tartrate (Lopressor) 25 mg PO DAILY [facility] Stop: 08/16/18 08:59 Last Admin: 06/17/18 09:29 Dose: 25 mg Pantoprazole Sodium (Protonix) 40 mg PO DAILY [facility] Stop: 08/16/18 08:59 Last Admin: 06/17/18 09:29 Dose: 40 mg Tamsulosin HCl (Flomax) 0.4 mg PO BID [facility] Stop: 08/16/18 08:59 Last Admin: 06/17/18 09:29 Dose: 0.4 mg General: alert HEENT: NC/AT, PERRLA Neck: Supple Lungs: CTAB Cardiovascular: RRR, Normal S1, Normal S2, without murmur Extremities: excoriation - Procedures Procedures: Procedures Procedure Code Date BYPASS RIGHT BRACHIAL ARTERY TO UP ARM VEIN, OPEN APPROACH [id number] 12/10/17 EXTIRPATION OF MATTER FROM R BRACH ART, OPEN APPROACH [id number] 06/10/18 FLUOROSCOPY OF R BRACHIOCEPH A USING L OSM CONTRAST [id number] 06/10/18 FLUOROSCOPY OF RIGHT HEART USING LOW OSMOLAR CONTRAST [id number] 12/10/17 INSERTION OF INFUSION DEV INTO SUP VENA CAVA, PERC APPROACH [id number] 10/31/17 INSERTION OF INFUSION DEVICE INTO R ATRIUM, PERC APPROACH [id number] 12/10/17 PERFORMANCE OF URINARY FILTRATION, <6 HRS/DAY [id number] 06/10/18 REMOVAL OF INFUSION DEVICE FROM UPPER VEIN, EGG GATHERER APPROACH [id number] 10/31/17 ULTRASONOGRAPHY OF SUPERIOR VENA CAVA, GUIDANCE [id number] 10/31/17 Internal Medicine Assmt/Plan - Assessment Assessment: catheter dysfunction esrd anemia htn cad hemiparesis - Plan Plan: revision of dialysis catheter today am labs continue current plan of care
--- NOTE | 2018-06-17 13:57 | General Progress Note ---
Subjective - Review of Systems Service Date: 06/17/18 Subjective: alert, verbal, confused Objective - Results Result Diagrams: 06/16/18 05:30 06/16/18 05:30 Recent Labs: Laboratory Last Values WBC 6.5 Th/cmm (4.8-10.8) 06/16/18 05:30 RBC 2.84 Mil/cmm (3.80-5.80) L 06/16/18 05:30 Hgb 9.2 gm/dL (12-16) L 06/16/18 05:30 Hct 26.8 % (41.0-60) L 06/16/18 05:30 MCV 94.3 fl (80-99) 06/16/18 05:30 MCH 32.2 pg (27.0-31.0) H 06/16/18 05:30 MCHC Differential 34.2 pg (28.0-36.0) 06/16/18 05:30 RDW 12.7 % (11.5-20.0) 06/16/18 05:30 Plt Count 312 Th/cmm (150-400) 06/16/18 05:30 MPV 6.7 fl 06/16/18 05:30 Neutrophils % 66.8 % (40.0-80.0) 06/16/18 05:30 Lymphocytes % 18.2 % (20.0-50.0) L 06/16/18 05:30 Monocytes % 7.8 % (2.0-10.0) 06/16/18 05:30 Eosinophils % 5.4 % (0.0-5.0) H 06/16/18 05:30 Basophils % 1.8 % (0.0-2.0) 06/16/18 05:30 PT 10.4 SECONDS (9.5-11.5) 06/16/18 05:30 INR 1.00 (0.5-1.4) 06/16/18 05:30 PTT (Actin FS) 25.0 SECONDS (26.0-38.0) L 06/16/18 05:30 Sodium 142 mEq/L (136-145) 06/16/18 05:30 Potassium 4.4 mEq/L (3.5-5.1) 06/16/18 05:30 Chloride 106 mEq/L (98-107) 06/16/18 05:30 Carbon Dioxide 26.5 mEq/L (21.0-31.0) 06/16/18 05:30 Anion Gap 13.9 (7.0-16.0) 06/16/18 05:30 BUN 35 mg/dL (7-25) H 06/16/18 05:30 Creatinine 5.6 mg/dL (0.7-1.3) H* 06/16/18 05:30 Est GFR ( Amer) TNP 06/16/18 05:30 Est GFR (Non-Af Amer) TNP 06/16/18 05:30 BUN/Creatinine Ratio 6.3 06/16/18 05:30 Glucose 87 mg/dL (70-105) 06/16/18 05:30 Whole Bld Lactic Acid 1.25 mmol/L (0.60-1.99) 06/15/18 15:00 Calcium 9.2 mg/dL (8.6-10.3) 06/16/18 05:30 Total Bilirubin 0.3 mg/dL (0.3-1.0) 06/15/18 15:00 AST 12 U/L (13-39) L 06/15/18 15:00 ALT 4 U/L (7-52) L 06/15/18 15:00 Alkaline Phosphatase 140 U/L (34-104) H 06/15/18 15:00 Creatine Kinase 22 U/L (30-223) L 06/15/18 15:00 Troponin I 0.01 ng/mL (0.01-0.05) 06/15/18 15:00 Total Protein 6.8 gm/dL (6.0-8.3) 06/15/18 15:00 Albumin 3.4 gm/dL (4.2-5.5) L 06/15/18 15:00 Globulin 3.4 gm/dL 06/15/18 15:00 Albumin/Globulin Ratio 1.0 (1.0-1.8) 06/15/18 15:00 Urine Source MIDSTREAM 06/15/18 16:40 Urine Color YELLOW 06/15/18 16:40 Urine Clarity CLEAR (CLEAR) 06/15/18 16:40 Urine pH 7.5 (4.6 - 8.0) 06/15/18 16:40 Ur Specific [place] 1.015 (1.005-1.030) 06/15/18 16:40 Urine Protein 100 mg/dL (NEGATIVE) H 06/15/18 16:40 Urine Glucose (UA) NEGATIVE mg/dL (NEGATIVE) 06/15/18 16:40 Urine Ketones NEGATIVE mg/dL (NEGATIVE) 06/15/18 16:40 Urine Blood NEGATIVE (NEGATIVE) 06/15/18 16:40 Urine Nitrate NEGATIVE (NEGATIVE) 06/15/18 16:40 Urine Bilirubin NEGATIVE (NEGATIVE) 06/15/18 16:40 Urine Urobilinogen 0.2 E.U./dL (0.2 - 1.0) 06/15/18 16:40 Ur Leukocyte Esterase TRACE (NEGATIVE) H 06/15/18 16:40 Urine RBC 0-2 /hpf (0-5) H 06/15/18 16:40 Urine WBC 2-5 /hpf (0-5) 06/15/18 16:40 Ur Epithelial Cells FEW /lpf (FEW) 06/15/18 16:40 Urine Bacteria FEW /hpf (NONE SEEN) 06/15/18 16:40 - Physical Exam Vitals and I&O: Vital Signs Temp 98.6 F 06/17/18 09:09 Pulse 74 06/17/18 09:29 Resp 18 06/17/18 09:09 BP 131/82 06/17/18 09:29 Pulse Ox 96 06/17/18 09:09 Intake & Output 06/16/18 06/17/18 06/17/18 18:59 06:59 18:59 Intake Total 480 400 200 Output Total 0 Balance 480 400 200 Weight (lbs) 56.245 kg 56.245 kg 56.245 kg Intake: Oral 200 400 200 Albumin 280 Output: Urine 0 Other: # Bowel Movements 0 Weight Source Bedscale Estimated Estimated Active Medications: Current Medications Atorvastatin Calcium (Lipitor) 10 mg PO HS [facility]; Protocol Stop: 08/15/18 20:59 Last Admin: 06/16/18 21:50 Dose: Not Given Docusate Sodium (Colace) 250 mg PO DAILY [facility] Stop: 08/16/18 08:59 Last Admin: 06/17/18 09:29 Dose: 250 mg Donepezil HCl (Aricept) 5 mg PO DAILY [facility] Stop: 08/16/18 08:59 Last Admin: 06/17/18 09:29 Dose: 5 mg Ferrous Sulfate (Iron) 325 mg PO BID [facility] Stop: 08/16/18 08:59 Last Admin: 06/17/18 09:29 Dose: 325 mg Finasteride (Proscar) 5 mg PO DAILY [facility]; Protocol Stop: 08/16/18 08:59 Last Admin: 06/17/18 09:29 Dose: 5 mg Folic Acid (Folate) 1 mg PO DAILY [facility] Stop: 08/16/18 08:59 Last Admin: 06/17/18 09:29 Dose: 1 mg Heparin Sodium (Porcine) (Heparin) 2,000 units HD UD [facility] Stop: 06/18/18 00:00 Last Admin: 06/17/18 09:29 Dose: Not Given Albumin Human (Albuminar 25%) 25 gm in 100 mls @ 50 mls/hr IV PRN PRN PRN Reason: BP Support During HD Metoprolol Tartrate (Lopressor) 25 mg PO DAILY [facility] Stop: 08/16/18 08:59 Last Admin: 06/17/18 09:29 Dose: 25 mg Pantoprazole Sodium (Protonix) 40 mg PO DAILY [facility] Stop: 08/16/18 08:59 Last Admin: 06/17/18 09:29 Dose: 40 mg Tamsulosin HCl (Flomax) 0.4 mg PO BID [facility] Stop: 08/16/18 08:59 Last Admin: 06/17/18 09:29 Dose: 0.4 mg General: Alert, No acute distress HEENT: Atraumatic, PERRLA, Mucous membr. moist/pink Neck: Supple Cardiovascular: Regular rate, Normal S1, Normal S2 Lungs: Clear to auscultation Abdomen: Bowel sounds, Soft Extremities: no Edema Neurological: Sensation intact Skin: no Rash Psych/Mental Status: Mood NL - Procedures Procedures: Procedures Procedure Code Date BYPASS RIGHT BRACHIAL ARTERY TO UP ARM VEIN, OPEN APPROACH [id number] 12/10/17 EXTIRPATION OF MATTER FROM R BRACH ART, OPEN APPROACH 03P00YC 06/10/18 FLUOROSCOPY OF R BRACHIOCEPH A USING L OSM CONTRAST [id number] 06/10/18 FLUOROSCOPY OF RIGHT HEART USING LOW OSMOLAR CONTRAST [id number] 12/10/17 INSERTION OF INFUSION DEV INTO SUP VENA CAVA, PERC APPROACH 55OD65N 10/31/17 INSERTION OF INFUSION DEVICE INTO R ATRIUM, PERC APPROACH [id number] 12/10/17 PERFORMANCE OF URINARY FILTRATION, <6 HRS/DAY [id number] 06/10/18 REMOVAL OF INFUSION DEVICE FROM UPPER VEIN, DESIGN MANAGER APPROACH [id number] 10/31/17 ULTRASONOGRAPHY OF SUPERIOR VENA CAVA, GUIDANCE [id number] 10/31/17 Assessment/Plan - Problem List Patient Problems: All Active Problems DYSFUNCTIONING DIALYSIS GRAFT (Acute) - Assessment Assessment: ESRD on HD Reclotted Right AVF Ess Htn w/ CKD Dyslipidemia BPH Psychosis - Plan Plan: Lab - Result Diagrams 06/16/18 05:30 06/16/18 05:30 Current Medications Atorvastatin Calcium (Lipitor) 10 mg PO HS [facility]; Protocol Stop: 08/15/18 20:59 Last Admin: 06/16/18 21:50 Dose: Not Given Docusate Sodium (Colace) 250 mg PO DAILY [facility] Stop: 08/16/18 08:59 Last Admin: 06/17/18 09:29 Dose: 250 mg Donepezil HCl (Aricept) 5 mg PO DAILY [facility] Stop: 08/16/18 08:59 Last Admin: 06/17/18 09:29 Dose: 5 mg Ferrous Sulfate (Iron) 325 mg PO BID [facility] Stop: 08/16/18 08:59 Last Admin: 06/17/18 09:29 Dose: 325 mg Finasteride (Proscar) 5 mg PO DAILY [facility]; Protocol Stop: 08/16/18 08:59 Last Admin: 06/17/18 09:29 Dose: 5 mg Folic Acid (Folate) 1 mg PO DAILY [facility] Stop: 08/16/18 08:59 Last Admin: 06/17/18 09:29 Dose: 1 mg Heparin Sodium (Porcine) (Heparin) 2,000 units HD UD [facility] Stop: 06/18/18 00:00 Last Admin: 06/17/18 09:29 Dose: Not Given Albumin Human (Albuminar 25%) 25 gm in 100 mls @ 50 mls/hr IV PRN PRN PRN Reason: BP Support During HD Metoprolol Tartrate (Lopressor) 25 mg PO DAILY [facility] Stop: 08/16/18 08:59 Last Admin: 06/17/18 09:29 Dose: 25 mg Pantoprazole Sodium (Protonix) 40 mg PO DAILY [facility] Stop: 08/16/18 08:59 Last Admin: 06/17/18 09:29 Dose: 40 mg Tamsulosin HCl (Flomax) 0.4 mg PO BID [facility] Stop: 08/16/18 08:59 Last Admin: 06/17/18 09:29 Dose: 0.4 mg Lab - Result Diagrams 06/16/18 05:30 06/16/18 05:30 scheduled for Perma Cath in am This will be followed by HD
[2018-06-17] MEDS: Atorvastatin Calcium 10 MG TAB PO SCH (21:54)
[2018-06-17] MEDS: D5-0.45NS 1,000 ML IV SCH (23:51)
[2018-06-18] MEDS: Ferrous Sulfate 325 MG TAB PO SCH ×2 (09:21→18:00)
[2018-06-18] MEDS: Pantoprazole 40 mg EC Tab PO SCH (09:22)
[2018-06-18 09:37] LABS: ANION GAP 17.5 (7.0-16.0); BUN - UREA NITROGEN 71 mg/dL (7-25); CALCIUM SERUM 9.2 mg/dL (8.6-10.3); CARBON DIOXIDE 22.4 mEq/L (21.0-31.0); CHLORIDE 106 mEq/L (98-107); GLUCOSE 96 mg/dL (70-105); POTASSIUM SERUM 4.9 mEq/L (3.5-5.1); SODIUM SERUM 141 mEq/L (136-145)
[2018-06-18 10:30] LABS: % BASOPHILS 1.5 % (0.0-2.0); % EOSINOPHILS 4.7 % (0.0-5.0); % MONOCYTES 7.4 % (2.0-10.0); % NEUTROPHILS 70.4 % (40.0-80.0); BASOPHILE ABSOLUTE 0.1 Th/cumm (0-0.2); EOSINOPHILE ABSOLUTE 0.3 Th/cmm (0.1-0.4); HEMATOCRIT 27.4 % (41.0-60); HEMOGLOBIN 9.2 gm/dL (12-16); LYMPHOCYTE ABSOLUTE 1.1 Th/cmm (1.5-3.0); MEAN CELL VOLUME 94.8 fl (80-99); MEAN CORPUSCULAR HEMOGLOBIN 31.8 pg (27.0-31.0); MEAN CORPUSCULAR HGB CONC 33.5 pg (28.0-36.0); MEAN PLATELET VOLUME 6.6 fl; MONOCYTE ABSOLUTE 0.5 Th/cmm (0.3-1.0); PLATELET COUNT 295 Th/cmm (150-400); RED BLOOD COUNT 2.89 Mil/cmm (3.80-5.80); RED CELL DISTRIBUTION WIDTH 12.5 % (11.5-20.0)
--- NOTE | 2018-06-18 12:40 | Internal Medicine Prog Note ---
Internal Medicine Subjective - Subjective Patient seen and examined:: chart reviewed (pt. awake, alert ) Patient is:: awake, confused Per staff patient has:: tolerating meds Internal Medicine Objective - Results Result Diagrams: 06/18/18 09:10 06/18/18 09:10 Recent Labs: Laboratory Last Values WBC 7.0 Th/cmm (4.8-10.8) 06/18/18 09:10 RBC 2.89 Mil/cmm (3.80-5.80) L 06/18/18 09:10 Hgb 9.2 gm/dL (12-16) L 06/18/18 09:10 Hct 27.4 % (41.0-60) L 06/18/18 09:10 MCV 94.8 fl (80-99) 06/18/18 09:10 MCH 31.8 pg (27.0-31.0) H 06/18/18 09:10 MCHC Differential 33.5 pg (28.0-36.0) 06/18/18 09:10 RDW 12.5 % (11.5-20.0) 06/18/18 09:10 Plt Count 295 Th/cmm (150-400) 06/18/18 09:10 MPV 6.6 fl 06/18/18 09:10 Neutrophils % 70.4 % (40.0-80.0) 06/18/18 09:10 Lymphocytes % 16.0 % (20.0-50.0) L 06/18/18 09:10 Monocytes % 7.4 % (2.0-10.0) 06/18/18 09:10 Eosinophils % 4.7 % (0.0-5.0) 06/18/18 09:10 Basophils % 1.5 % (0.0-2.0) 06/18/18 09:10 PT 10.4 SECONDS (9.5-11.5) 06/16/18 05:30 INR 1.00 (0.5-1.4) 06/16/18 05:30 PTT (Actin FS) 25.0 SECONDS (26.0-38.0) L 06/16/18 05:30 Sodium 141 mEq/L (136-145) 06/18/18 09:10 Potassium 4.9 mEq/L (3.5-5.1) 06/18/18 09:10 Chloride 106 mEq/L (98-107) 06/18/18 09:10 Carbon Dioxide 22.4 mEq/L (21.0-31.0) 06/18/18 09:10 Anion Gap 17.5 (7.0-16.0) H 06/18/18 09:10 BUN 71 mg/dL (7-25) H 06/18/18 09:10 Creatinine 8.0 mg/dL (0.7-1.3) H* 06/18/18 09:10 Est GFR ( Amer) TNP 06/18/18 09:10 Est GFR (Non-Af Amer) TNP 06/18/18 09:10 BUN/Creatinine Ratio 8.9 06/18/18 09:10 Glucose 96 mg/dL (70-105) 06/18/18 09:10 Whole Bld Lactic Acid 1.25 mmol/L (0.60-1.99) 06/15/18 15:00 Calcium 9.2 mg/dL (8.6-10.3) 06/18/18 09:10 Total Bilirubin 0.3 mg/dL (0.3-1.0) 06/15/18 15:00 AST 12 U/L (13-39) L 06/15/18 15:00 ALT 4 U/L (7-52) L 06/15/18 15:00 Alkaline Phosphatase 140 U/L (34-104) H 06/15/18 15:00 Creatine Kinase 22 U/L (30-223) L 06/15/18 15:00 Troponin I 0.01 ng/mL (0.01-0.05) 06/15/18 15:00 Total Protein 6.8 gm/dL (6.0-8.3) 06/15/18 15:00 Albumin 3.4 gm/dL (4.2-5.5) L 06/15/18 15:00 Globulin 3.4 gm/dL 06/15/18 15:00 Albumin/Globulin Ratio 1.0 (1.0-1.8) 06/15/18 15:00 Urine Source MIDSTREAM 06/15/18 16:40 Urine Color YELLOW 06/15/18 16:40 Urine Clarity CLEAR (CLEAR) 06/15/18 16:40 Urine pH 7.5 (4.6 - 8.0) 06/15/18 16:40 Ur Specific [place] 1.015 (1.005-1.030) 06/15/18 16:40 Urine Protein 100 mg/dL (NEGATIVE) H 06/15/18 16:40 Urine Glucose (UA) NEGATIVE mg/dL (NEGATIVE) 06/15/18 16:40 Urine Ketones NEGATIVE mg/dL (NEGATIVE) 06/15/18 16:40 Urine Blood NEGATIVE (NEGATIVE) 06/15/18 16:40 Urine Nitrate NEGATIVE (NEGATIVE) 06/15/18 16:40 Urine Bilirubin NEGATIVE (NEGATIVE) 06/15/18 16:40 Urine Urobilinogen 0.2 E.U./dL (0.2 - 1.0) 06/15/18 16:40 Ur Leukocyte Esterase TRACE (NEGATIVE) H 06/15/18 16:40 Urine RBC 0-2 /hpf (0-5) H 06/15/18 16:40 Urine WBC 2-5 /hpf (0-5) 06/15/18 16:40 Ur Epithelial Cells FEW /lpf (FEW) 06/15/18 16:40 Urine Bacteria FEW /hpf (NONE SEEN) 06/15/18 16:40 Blood Type O POSITIVE 06/17/18 22:15 Antibody Screen NEGATIVE 06/17/18 22:15 - Physical Exam Vitals and I&O: Vital Signs Temp 97.8 F 06/18/18 08:36 Pulse 103 06/18/18 09:21 Resp 18 06/18/18 08:36 BP 132/79 06/18/18 09:21 Pulse Ox 98 06/18/18 08:36 Intake & Output 06/17/18 06/18/18 06/18/18 18:59 06:59 18:59 Intake Total 200 428 Balance 200 428 Weight (lbs) 56.245 kg 53.751 kg Intake: Oral 200 428 Other: # Voids 1 Weight Source Estimated Bedscale Active Medications: Current Medications Atorvastatin Calcium (Lipitor) 10 mg PO HS [facility]; Protocol Stop: 08/15/18 20:59 Last Admin: 06/17/18 21:54 Dose: 10 mg Docusate Sodium (Colace) 250 mg PO DAILY [facility] Stop: 08/16/18 08:59 Last Admin: 06/18/18 09:21 Dose: Not Given Donepezil HCl (Aricept) 5 mg PO DAILY [facility] Stop: 08/16/18 08:59 Last Admin: 06/18/18 09:21 Dose: Not Given Ferrous Sulfate (Iron) 325 mg PO BID [facility] Stop: 08/16/18 08:59 Last Admin: 06/18/18 09:21 Dose: Not Given Finasteride (Proscar) 5 mg PO DAILY [facility]; Protocol Stop: 08/16/18 08:59 Last Admin: 06/18/18 09:21 Dose: Not Given Folic Acid (Folate) 1 mg PO DAILY [facility] Stop: 08/16/18 08:59 Last Admin: 06/18/18 09:21 Dose: Not Given Albumin Human (Albuminar 25%) 25 gm in 100 mls @ 50 mls/hr IV PRN PRN PRN Reason: BP Support During HD Dextrose/Sodium Chloride (D5-0.45ns) 1,000 mls @ 40 mls/hr IV .Q24H [facility] Last Admin: 06/17/18 23:51 Dose: 40 mls/hr Metoprolol Tartrate (Lopressor) 25 mg PO DAILY [facility] Stop: 08/16/18 08:59 Last Admin: 06/18/18 09:21 Dose: Not Given Pantoprazole Sodium (Protonix) 40 mg PO DAILY [facility] Stop: 08/16/18 08:59 Last Admin: 06/18/18 09:22 Dose: Not Given Tamsulosin HCl (Flomax) 0.4 mg PO BID [facility] Stop: 08/16/18 08:59 Last Admin: 06/18/18 09:22 Dose: Not Given General: alert HEENT: NC/AT, PERRLA Neck: Supple Lungs: CTAB Cardiovascular: RRR, Normal S1, Normal S2, without murmur Extremities: excoriation - Procedures Procedures: Procedures Procedure Code Date BYPASS RIGHT BRACHIAL ARTERY TO UP ARM VEIN, OPEN APPROACH [id number] 12/10/17 EXTIRPATION OF MATTER FROM R BRACH ART, OPEN APPROACH [id number] 06/10/18 FLUOROSCOPY OF R BRACHIOCEPH A USING L OSM CONTRAST [id number] 06/10/18 FLUOROSCOPY OF RIGHT HEART USING LOW OSMOLAR CONTRAST [id number] 12/10/17 INSERTION OF INFUSION DEV INTO SUP VENA CAVA, PERC APPROACH [id number] 10/31/17 INSERTION OF INFUSION DEVICE INTO R ATRIUM, PERC APPROACH [id number] 12/10/17 PERFORMANCE OF URINARY FILTRATION, <6 HRS/DAY [id number] 06/10/18 REMOVAL OF INFUSION DEVICE FROM UPPER VEIN, OBIEE ARCHITECT APPROACH [id number] 10/31/17 ULTRASONOGRAPHY OF SUPERIOR VENA CAVA, GUIDANCE [id number] 10/31/17 Internal Medicine Assmt/Plan - Assessment Assessment: catheter dysfunction esrd anemia htn cad hemiparesis - Plan Plan: am labs on HD cpm
--- NOTE | 2018-06-18 19:57 | Progress Notes ---
DATE: 06/17/2018 SURGICAL PROGRESS NOTE TIME: 9:51 p.m. PHYSICAL EXAMINATION: VITAL SIGNS: Afebrile. Vital signs stable. GENERAL: Resting in bed comfortably, in no acute distress. HEENT AND NECK: Within normal limits. No JVD. CHEST: Clear to auscultation bilaterally. HEART: Regular rhythm and rate. ABDOMEN: Soft, nontender, nondistended. Clotted right AV fistula site. Abdomen otherwise soft, nontender, nondistended. NEUROVASCULAR AND EXTREMITIES: Otherwise normal. LABORATORY DATA: The white blood cell count 6.5, H and H is 9 and 26.8, and platelet count 312. The coags checked yesterday are essentially normal with a BUN and creatinine 35 and 5.6 yesterday. The patient is on heparin 2000 units, aspirin has been stopped. Chest x-ray done today shows no acute abnormalities. IMPRESSION AND PLAN: The patient with end-stage renal disease among other medical problems. The patient has no hemodialysis access as the right arm AV fistula is clotted and thrombosed. Dr. Frankel is the medical mat weaver and has requested for a tunneled hemodialysis PermCath placement, originally planned for earlier today, but the patient ate breakfast and therefore, the surgery will be rescheduled for tomorrow afternoon. The risks and benefits of the procedure explained to him, all questions answered. He agrees to the procedure. Consent has been signed. JOB# [id number]
[2018-06-18] MEDS: Atorvastatin Calcium 10 MG TAB PO SCH (20:12)
[2018-06-18] MEDS: D5-0.45NS 1,000 ML IV SCH (20:13)
[2018-06-18] MEDS ORDERED: Heparin Sod 1,000 Units/mL 10ml HD ONE (21:00)
[2018-06-18] MEDS ORDERED: Heparin Sodium 1,000 Units/mL Vial ONE (21:01)
--- NOTE | 2018-06-18 21:53 | Operative Report ---
Post Operative Report - POST-OPERATIVE NOTE Preoperative diagnosis:: renal failure, need for HD access Postoperative diagnosis:: same Operation performed:: placement Arrow large bore HD cath w/ central line port. u/s guidance for vascular access Anesthesia:: Local Anesthesiologist:: Arian Nicolas Blood Loss (fluid management):: minimal <5ml Surgeon:: Arian Nicolas Manager Culinary:: none Findings:: cxr ordered to confirm placement Prosthetic devices, grafts, tissue or device implanted:: Arrow large bore catheter w/ central line port Complications:: none
--- NOTE | 2018-06-18 23:41 | Operative Report ---
DATE OF SURGERY: 06/18/2018 PREOPERATIVE DIAGNOSIS: Renal failure, need for hemodialysis access. POSTOPERATIVE DIAGNOSIS: Renal failure, need for hemodialysis access. OPERATION PERFORMED: 1. Placement of Arrow large bore hemodialysis catheter with central line port. 2. Ultrasound guidance for vascular access. ANESTHESIA: Local. ANESTHESIOLOGIST: ESTIMATED BLOOD LOSS: Minimal, less than 5 mL. SURGEON: Dr. Arian Nicolas DIRECTOR OF RESOURCE DEVELOPMENT: None. FINDINGS: Chest x-ray ordered to confirm placement. PROSTHETIC DEVICES: Arrow large bore catheter with central line port. COMPLICATIONS: None. DESCRIPTION OF PROCEDURE: After confirming the patient identification and procedure to be done, the patient was placed in supine position. The left neck was prepped and draped in usual sterile fashion. Timeout was performed. Initially tried to place the catheter in the left IJ site. I was able to puncture the left internal jugular vein after local anesthesia, but unable to place the guidewire in despite multiple attempts. This site was abandoned. I then went to the right side. The right neck was prepped and draped in usual sterile fashion. Local anesthesia was administered. A large bore needle was used to cannulate the right internal jugular vein. Guidewire was placed in without difficulty. Tract was dilated. The catheter placed in over the guidewire using Seldinger technique. There was good venous draw back from all 3 ports. All 3 ports were flushed with normal saline. Catheter was suture anchored to skin. Dressings were applied. The patient tolerated the procedure well. Chest x-ray will be checked post-procedure. JOB# [id number]
--- NOTE | 2018-06-19 04:37 | Progress Notes ---
DATE: 06/18/2018 SUBJECTIVE: The patient is being seen for Dr. Frankel. Awake and alert. The patient does have problems with chronic renal failure, hypertension, and diabetes. The patient also had a stroke in the past. At present, the problem is that the patient has a shunt, it is clotted and the patient had a trial revision through the courtesy of Dr. Nicolas earlier, but not working. He is supposed to come back and open it up. It was supposed to be done earlier, but cannot be done. The patient has not been dialyzed for the last 3 days. The patient otherwise seems to be okay clinically. OBJECTIVE: VITAL SIGNS: The patient's vitals done this morning reveals blood pressure 133/83, temperature 97.1, and heart rate 81. CHEST: Reveals reasonable air entry. NEUROLOGIC: The patient seems to be moderately stable. LABORATORY DATA: Biochemical data significant available from today reveals sodium 141, potassium 4.9, chloride 106, CO2 content 22.4, anion gap 22.4, BUN 71, and creatinine 8.0. Both of these numbers are significantly higher what used to be. The patient's hemoglobin today is 9.2 grams percent with WBC count of 7.0. Awaiting Dr. Nicolas to revise the shunt or put in a catheter, so that the patient can be dialyzed, were discussed with the nurse and would work with him. Clinically otherwise, at present, the patient seems to be little stable. JOB# [id number]
[2018-06-19 08:03] LABS: % EOSINOPHILS 7.2 % (0.0-5.0); % NEUTROPHILS 59.8 % (40.0-80.0); EOSINOPHILE ABSOLUTE 0.2 Th/cmm (0.1-0.4); HEMATOCRIT 25.9 % (41.0-60); HEMOGLOBIN 8.8 gm/dL (12-16); LYMPHOCYTE ABSOLUTE 0.8 Th/cmm (1.5-3.0); MEAN CELL VOLUME 93.6 fl (80-99); MEAN CORPUSCULAR HEMOGLOBIN 31.7 pg (27.0-31.0); MEAN CORPUSCULAR HGB CONC 33.9 pg (28.0-36.0); MEAN PLATELET VOLUME 6.1 fl; MONOCYTE ABSOLUTE 0.2 Th/cmm (0.3-1.0); NEUTROPHILE ABSOLUTE 1.8 Th/cmm (1.8-8.0); PLATELET COUNT 304 Th/cmm (150-400); RED BLOOD COUNT 2.76 Mil/cmm (3.80-5.80); RED CELL DISTRIBUTION WIDTH 12.8 % (11.5-20.0)
[2018-06-19 08:20] LABS: ALB/GLOB RATIO 0.9 (1.0-1.8); ALBUMIN 3.4 gm/dL (4.2-5.5); ALKALINE PHOSPHATASE 140 U/L (34-104); ANION GAP 14.9 (7.0-16.0); BILIRUBIN,TOTAL 0.3 mg/dL (0.3-1.0); BUN - UREA NITROGEN 58 mg/dL (7-25); CALCIUM SERUM 9.1 mg/dL (8.6-10.3); CARBON DIOXIDE 21.6 mEq/L (21.0-31.0); CHLORIDE 106 mEq/L (98-107); POTASSIUM SERUM 4.5 mEq/L (3.5-5.1); SGOT 13 U/L (13-39); SGPT/ALT 6 U/L (7-52); SODIUM SERUM 138 mEq/L (136-145); TOTAL PROTEIN,SERUM 7.1 gm/dL (6.0-8.3)
--- NOTE | 2018-06-19 08:22 | Diagnostic Imaging Report ---
Permacath placement (ultrasound sonographic services) HISTORY: Permacath placement Sonographic services provided for facilitation of a permacath placement.
--- NOTE | 2018-06-19 08:30 | Diagnostic Imaging Report ---
Portable chest x-ray HISTORY: Vascular catheter placement, shortness of breath Compared with prior exam of June 17, 2018, a right jugular vascular catheter is been inserted. The tip is in the region of this. Vena cava. No acute focal pulmonary processes. No pneumothorax. IMPRESSION: 1. New vascular catheter placement as noted above 2. No acute focal pulmonary processes
[2018-06-19 08:32] LABS: CREATININE - SERUM 6.2 mg/dL (0.7-1.3)
[2018-06-19 09:02] LABS: GLUCOSE 117 mg/dL (70-105)
[2018-06-19] MEDS ORDERED: D5-0.45NS 1,000 ML IV SCH (09:30)
--- NOTE | 2018-06-19 11:58 | Progress Notes ---
DATE: 06/18/2018 SURGICAL PROGRESS NOTE TIME: 09:04 p.m. SUBJECTIVE: The patient is resting in bed comfortably, in no acute distress, afebrile. OBJECTIVE: VITAL SIGNS: Otherwise stable. CHEST: Clear to auscultation bilaterally. HEART: Regular rate. ABDOMEN: Soft, nontender, nondistended. NEUROVASCULAR AND EXTREMITIES: Otherwise normal. Post-stroke hemiparesis tolerating p.o. diet, bowel movement once, voiding urine. LABORATORY DATA: White blood cell count 7, H and H is 9 and 27.4, platelet count is 295. BUN and creatinine 71 and 8.0, potassium 4.9. IMPRESSION AND PLAN: Awaiting overtime today for placement of a tunneled hemodialysis Perm-A-Cath. Unfortunately, much of the overtime was taken up because of an emergency case that bumped the overt slotted time even as now 9:05 p.m., there is at least another hour before the case is finished and this case can be started, so discussed with the patient, we will plan for placement of a temporary hemodialysis catheter allow the patient to get dialysis either tonight or tomorrow and either a tunneled dialysis catheter can be planned on Thursday or can be planned as an outpatient. Dr. Santos is aware of the patient and has taken care of the patient previously for the AV fistula of the arm. Certainly, the revision of the AV fistula and hemodialysis access can be established by Dr. Santos as an outpatient. So, we will plan for non-tunneled temporary hemodialysis catheter for now. Allow the patient to get dialysis. He is agreeable to the procedure tonight. JOB# [id number]
[2018-06-19] MEDS: Ferrous Sulfate 325 MG TAB PO SCH ×2 (12:14→18:19)
[2018-06-19] MEDS: Pantoprazole 40 mg EC Tab PO SCH (12:15)
[2018-06-19] MEDS ORDERED: Lidocaine Mpf 1% 10 mL Amp EPI ONE (14:00)
[2018-06-19] MEDS ORDERED: fentaNYL Citrate 100 mcg/2mL Vial ONE (14:53)
[2018-06-19] MEDS ORDERED: Propofol **SURGERY USE ONLY** 20 ML IV ONE (16:04)
--- NOTE | 2018-06-19 16:04 | Operative Report ---
Post Operative Report - POST-OPERATIVE NOTE Preoperative diagnosis:: chronic renal failure, nonfunctional RIJ HD cath; needs hemodialysis access Postoperative diagnosis:: same Operation performed:: attempted L subclavian. successful placement of LIJ HD cath. u/s guidance. c-arm fluoroscopy Specimen:: none Anesthesia:: Mac, Local Anesthesiologist:: Sofia Spears Blood Loss (fluid management):: 20 Surgeon:: Arian Nicolas Infant And Toddler Teacher:: Teo RICHTER Findings:: c-arm confirms cath in place with tip at RA/SVC junction Prosthetic devices, grafts, tissue or device implanted:: Covidien Mahurkar Elite acute dual lumen cath; 12Fr x 20cm Complications:: none
--- NOTE | 2018-06-19 16:48 | Operative Report ---
DATE OF SURGERY: 06/19/2018 TIME: 4:09 p.m. PREOPERATIVE DIAGNOSES: Chronic renal failure, nonfunctional right IJ hemodialysis catheter, needs hemodialysis access. POSTOPERATIVE DIAGNOSES: Chronic renal failure, nonfunctional right IJ hemodialysis catheter, needs hemodialysis access. OPERATION PERFORMED: 1. Attempted left subclavian catheter placement, unsuccessful. 2. Successful placement of left internal jugular hemodialysis catheter, Covidien Mahurkar Elite acute dual lumen catheter, 12-Bengali 20 cm length catheter. 3. Ultrasound guidance. 4. C-arm fluoroscopy. SPECIMENS: None. ANESTHESIA: MAC and local. ANESTHESIOLOGIST: Desmond Spears M.D. ESTIMATED BLOOD LOSS: 20 mL. SURGEON: Arian Nicolas M.D. COMMUNITY REPRESENTATIVE: jonathan Burdick, medical student 3. INTRAOPERATIVE FINDINGS: C-arm confirms the catheter in place with tip at the right atrial SVC junction site. PROSTHETIC DEVICES: Grafts tissues were device implanted Covidien Mahurkar Elite acute dual lumen catheter, 12-Bengali 20 cm length. COMPLICATIONS: None. DESCRIPTION OF PROCEDURE: After confirming patient's identification and procedure to be done, the patient was placed in supine position. The left subclavian area was surveillance with ultrasound machine. The left subclavian vein was seemingly punctured and guidewire placed in. I used C-arm fluoroscopy and felt that it was likely in the subclavian vein; however, I had tunneled the tunnel catheter from the chest wall out through the subclavian site and then when I dilated it once, there was significant amount of arterial pulsatile bleeding, so the guidewire was immediately removed and pressure was applied for 20 minutes and hemostasis ensured. The openings in the subclavian and the chest wall area were then sutured close and pressure was applied for another 45 minutes. Then, attention was placed to the left IJ site. Ultrasound was used to identify the left internal jugular vein. Local anesthesia was administered. A large bore needle was used to cannulate the left internal jugular vein. The guidewire was placed in without any difficulty. The wire was kinked at the right atrial site. The guidewire keep coiling up and going back up instead of going down, I had to use the C-arm fluoroscopy to maneuver the wire down into the SVC right atrial junction site. Once I was able to do that, serial dilation was performed. The catheter was then placed in over the guidewire using Seldinger technique. A WatchFrog Elite acute dual lumen catheter, 12-Bengali 20 cm length catheter was placed. It was suture anchored to the skin. There was good venous draw back from both ports. Both ports were flushed with normal saline and then heparinized saline, then caps were placed on the catheter. The patient tolerated the procedure well. C-arm fluoroscopy confirmed that the cap was in excellent position with the tip at the right atrial SVC junction site. [facility]# [id number]
--- NOTE | 2018-06-19 19:46 | Progress Notes ---
DATE: 06/19/2018 SUBJECTIVE: The patient was seen in his room. The patient is awake, but confused, appears to be in no acute distress. OBJECTIVE: VITAL SIGNS: Temperature 98.1, heart rate 67, blood pressure 114/89, respirations of 18 and 97% on room air. HEENT: Head is atraumatic and normocephalic. Eyes: Bilateral conjunctivae are clear. Bilateral pupils are equally round and reactive. NECK: Supple. No JVD. CARDIOVASCULAR: S1 and S2, without murmur. PULMONARY: Clear to auscultation. GASTROINTESTINAL: Soft and nontender without guarding. Positive bowel sounds. MUSCULOSKELETAL: No clubbing. No cyanosis noted. ASSESSMENT: 1. End-stage renal disease, hemodialysis dependent. 2. Hypertension. 3. Anemia. 4. Coronary artery disease. PLAN: We will continue hemodialysis as scheduled. We will continue to monitor the patient's electrolytes and intake and output. Treatment plans were discussed with the patient's nurse. Treatment plans were discussed with Dr. Wiggins. JOB# [id number]
[2018-06-19] MEDS: Atorvastatin Calcium 10 MG TAB PO SCH (20:00)
[2018-06-20] MEDS ORDERED: Morphine Sulfate 2 mg/mL 1mL Syr IVP PRN ×2 (06:39→06:40)
[2018-06-20 07:16] LABS: ANION GAP 10.5 (7.0-16.0); BUN - UREA NITROGEN 26 mg/dL (7-25); CALCIUM SERUM 8.9 mg/dL (8.6-10.3); CARBON DIOXIDE 28.2 mEq/L (21.0-31.0); CHLORIDE 102 mEq/L (98-107); GLUCOSE 98 mg/dL (70-105); POTASSIUM SERUM 3.7 mEq/L (3.5-5.1); SODIUM SERUM 137 mEq/L (136-145)
[2018-06-20 07:18] LABS: % BASOPHILS 1.7 % (0.0-2.0); % EOSINOPHILS 4.3 % (0.0-5.0); % MONOCYTES 7.8 % (2.0-10.0); % NEUTROPHILS 70.2 % (40.0-80.0); BASOPHILE ABSOLUTE 0.1 Th/cumm (0-0.2); EOSINOPHILE ABSOLUTE 0.3 Th/cmm (0.1-0.4); HEMATOCRIT 26.5 % (41.0-60); HEMOGLOBIN 8.8 gm/dL (12-16); LYMPHOCYTE ABSOLUTE 1.1 Th/cmm (1.5-3.0); MEAN CORPUSCULAR HEMOGLOBIN 31.3 pg (27.0-31.0); MEAN CORPUSCULAR HGB CONC 33.3 pg (28.0-36.0); MEAN PLATELET VOLUME 6.9 fl; MONOCYTE ABSOLUTE 0.5 Th/cmm (0.3-1.0); NEUTROPHILE ABSOLUTE 4.9 Th/cmm (1.8-8.0); PLATELET COUNT 275 Th/cmm (150-400); RED BLOOD COUNT 2.81 Mil/cmm (3.80-5.80); RED CELL DISTRIBUTION WIDTH 12.6 % (11.5-20.0); WHITE BLOOD COUNT 6.9 Th/cmm (4.8-10.8)
[2018-06-20] MEDS: Ferrous Sulfate 325 MG TAB PO SCH ×2 (08:39→15:59)
--- NOTE | 2018-06-20 09:26 | Diagnostic Imaging Report ---
Portable chest x-ray HISTORY: Status post vascular catheter placement Compared with the prior exam of June 18, 2018, a right-sided vascular catheter has been removed. Left-sided vascular catheter has been inserted. The tip is in the region of the superior vena cava. No focal pelvic processes. No pneumothorax. The heart remains enlarged. IMPRESSION: 1. New vascular catheter placement as noted above
--- NOTE | 2018-06-20 09:59 | Diagnostic Imaging Report ---
Permacath placement (intraoperative fluoroscopic images and services) Intraoperative fluoroscopic images and services were provided for facilitation of a vascular catheter placement. 1 minute 7 seconds fluoroscopy time was utilized.
--- NOTE | 2018-06-20 10:36 | Internal Medicine Prog Note ---
Internal Medicine Subjective - Subjective Patient is:: awake, confused, other (dialysis cath inserted yesteray ) Per staff patient has:: no adverse event, tolerating meds Internal Medicine Objective - Results Result Diagrams: 06/20/18 06:00 06/20/18 06:00 Recent Labs: Laboratory Last Values WBC 6.9 Th/cmm (4.8-10.8) 06/20/18 06:00 RBC 2.81 Mil/cmm (3.80-5.80) L 06/20/18 06:00 Hgb 8.8 gm/dL (12-16) L 06/20/18 06:00 Hct 26.5 % (41.0-60) L 06/20/18 06:00 MCV 94.0 fl (80-99) 06/20/18 06:00 MCH 31.3 pg (27.0-31.0) H 06/20/18 06:00 MCHC Differential 33.3 pg (28.0-36.0) 06/20/18 06:00 RDW 12.6 % (11.5-20.0) 06/20/18 06:00 Plt Count 275 Th/cmm (150-400) 06/20/18 06:00 MPV 6.9 fl 06/20/18 06:00 Neutrophils % 70.2 % (40.0-80.0) 06/20/18 06:00 Lymphocytes % 16.0 % (20.0-50.0) L 06/20/18 06:00 Monocytes % 7.8 % (2.0-10.0) 06/20/18 06:00 Eosinophils % 4.3 % (0.0-5.0) 06/20/18 06:00 Basophils % 1.7 % (0.0-2.0) 06/20/18 06:00 PT 10.4 SECONDS (9.5-11.5) 06/16/18 05:30 INR 1.00 (0.5-1.4) 06/16/18 05:30 PTT (Actin FS) 25.0 SECONDS (26.0-38.0) L 06/16/18 05:30 Sodium 137 mEq/L (136-145) 06/20/18 06:00 Potassium 3.7 mEq/L (3.5-5.1) 06/20/18 06:00 Chloride 102 mEq/L (98-107) 06/20/18 06:00 Carbon Dioxide 28.2 mEq/L (21.0-31.0) 06/20/18 06:00 Anion Gap 10.5 (7.0-16.0) 06/20/18 06:00 BUN 26 mg/dL (7-25) H 06/20/18 06:00 Creatinine 4.0 mg/dL (0.7-1.3) H 06/20/18 06:00 Est GFR ( Amer) TNP 06/20/18 06:00 Est GFR (Non-Af Amer) TNP 06/20/18 06:00 BUN/Creatinine Ratio 6.5 06/20/18 06:00 Glucose 98 mg/dL (70-105) 06/20/18 06:00 Whole Bld Lactic Acid 1.25 mmol/L (0.60-1.99) 06/15/18 15:00 Calcium 8.9 mg/dL (8.6-10.3) 06/20/18 06:00 Total Bilirubin 0.3 mg/dL (0.3-1.0) 06/19/18 07:51 AST 13 U/L (13-39) 06/19/18 07:51 ALT 6 U/L (7-52) L 06/19/18 07:51 Alkaline Phosphatase 140 U/L (34-104) H 06/19/18 07:51 Creatine Kinase 22 U/L (30-223) L 06/15/18 15:00 Troponin I 0.01 ng/mL (0.01-0.05) 06/15/18 15:00 Total Protein 7.1 gm/dL (6.0-8.3) 06/19/18 07:51 Albumin 3.4 gm/dL (4.2-5.5) L 06/19/18 07:51 Globulin 3.7 gm/dL 06/19/18 07:51 Albumin/Globulin Ratio 0.9 (1.0-1.8) L 06/19/18 07:51 Urine Source MIDSTREAM 06/15/18 16:40 Urine Color YELLOW 06/15/18 16:40 Urine Clarity CLEAR (CLEAR) 06/15/18 16:40 Urine pH 7.5 (4.6 - 8.0) 06/15/18 16:40 Ur Specific [place] 1.015 (1.005-1.030) 06/15/18 16:40 Urine Protein 100 mg/dL (NEGATIVE) H 06/15/18 16:40 Urine Glucose (UA) NEGATIVE mg/dL (NEGATIVE) 06/15/18 16:40 Urine Ketones NEGATIVE mg/dL (NEGATIVE) 06/15/18 16:40 Urine Blood NEGATIVE (NEGATIVE) 06/15/18 16:40 Urine Nitrate NEGATIVE (NEGATIVE) 06/15/18 16:40 Urine Bilirubin NEGATIVE (NEGATIVE) 06/15/18 16:40 Urine Urobilinogen 0.2 E.U./dL (0.2 - 1.0) 06/15/18 16:40 Ur Leukocyte Esterase TRACE (NEGATIVE) H 06/15/18 16:40 Urine RBC 0-2 /hpf (0-5) H 06/15/18 16:40 Urine WBC 2-5 /hpf (0-5) 06/15/18 16:40 Ur Epithelial Cells FEW /lpf (FEW) 06/15/18 16:40 Urine Bacteria FEW /hpf (NONE SEEN) 06/15/18 16:40 Blood Type O POSITIVE 06/17/18 22:15 Antibody Screen NEGATIVE 06/17/18 22:15 - Physical Exam Vitals and I&O: Vital Signs Temp 97.8 F 06/20/18 07:50 Pulse 81 06/20/18 08:39 Resp 18 06/20/18 07:50 BP 106/69 06/20/18 08:39 Pulse Ox 97 06/20/18 07:50 Intake & Output 06/19/18 06/20/18 06/20/18 18:59 06:59 18:59 Intake Total 150 Balance 150 Weight (lbs) 56.245 kg 68.039 kg Intake: Oral 150 Other: Weight Source Bedscale Estimated Active Medications: Current Medications Atorvastatin Calcium (Lipitor) 10 mg PO [facility]; Protocol Stop: 08/15/18 20:59 Last Admin: 06/19/18 20:00 Dose: Not Given Docusate Sodium (Colace) 250 mg PO DAILY [facility] Stop: 08/16/18 08:59 Last Admin: 06/20/18 08:39 Dose: 250 mg Donepezil HCl (Aricept) 5 mg PO DAILY [facility] Stop: 08/16/18 08:59 Last Admin: 06/20/18 08:39 Dose: 5 mg Ferrous Sulfate (Iron) 325 mg PO BID [facility] Stop: 08/16/18 08:59 Last Admin: 06/20/18 08:39 Dose: 325 mg Finasteride (Proscar) 5 mg PO DAILY [facility]; Protocol Stop: 08/16/18 08:59 Last Admin: 06/20/18 08:39 Dose: 5 mg Folic Acid (Folate) 1 mg PO DAILY [facility] Stop: 08/16/18 08:59 Last Admin: 06/20/18 08:39 Dose: 1 mg Albumin Human (Albuminar 25%) 25 gm in 100 mls @ 50 mls/hr IV PRN PRN PRN Reason: BP Support During HD Metoprolol Tartrate (Lopressor) 25 mg PO DAILY [facility] Stop: 08/19/18 08:59 Last Admin: 06/20/18 08:39 Dose: 25 mg Morphine Sulfate (Morphine) 1 mg IVP Q4HR PRN PRN Reason: Pain (Moderate) Stop: 08/19/18 06:38 Last Admin: 06/20/18 08:50 Dose: 1 mg Morphine Sulfate (Morphine) 2 mg IVP Q4HR PRN PRN Reason: Pain (Severe) Stop: 08/19/18 06:39 Pantoprazole Sodium (Protonix) 40 mg IVP DAILY [facility] Stop: 08/18/18 12:29 Last Admin: 06/20/18 08:39 Dose: 40 mg Tamsulosin HCl (Flomax) 0.4 mg PO BID [facility] Stop: 08/16/18 08:59 Last Admin: 06/20/18 08:39 Dose: 0.4 mg General: weak, alert HEENT: NC/AT, PERRLA Neck: Supple Lungs: CTAB Cardiovascular: RRR, Normal S1, Normal S2, without murmur Extremities: excoriation - Procedures Procedures: Procedures Procedure Code Date BYPASS RIGHT BRACHIAL ARTERY TO UP ARM VEIN, OPEN APPROACH [id number] 12/10/17 EXTIRPATION OF MATTER FROM R BRACH ART, OPEN APPROACH [id number] 06/10/18 FLUOROSCOPY OF R BRACHIOCEPH A USING L OSM CONTRAST [id number] 06/10/18 FLUOROSCOPY OF RIGHT HEART USING LOW OSMOLAR CONTRAST [id number] 12/10/17 INSERTION OF INFUSION DEV INTO SUP VENA CAVA, PERC APPROACH [id number] 10/31/17 INSERTION OF INFUSION DEVICE INTO R ATRIUM, PERC APPROACH [id number] 12/10/17 PERFORMANCE OF URINARY FILTRATION, <6 HRS/DAY [id number] 06/10/18 REMOVAL OF INFUSION DEVICE FROM UPPER VEIN, RESPIRATORY MANAGER APPROACH [id number] 10/31/17 ULTRASONOGRAPHY OF SUPERIOR VENA CAVA, GUIDANCE [id number] 10/31/17 Internal Medicine Assmt/Plan - Assessment Assessment: catheter dysfunction esrd anemia htn cad hemiparesis - Plan Plan: am labs on HD cpm Nutritional Asmnt/Malnutr-PDOC - Dietary Evaluation Malnutrition Findings (Please click <Entered> for more info): Nutritional Asmnt/Malnutrition Start: 06/16/18 11: 21 Text: Status: Complete Freq: Protocol: Document 06/19/18 11:26 MMULHERN (Rec: 06/19/18 11:38 [email or web address] JOSH- [id number]) Nutritional Asmnt/Malnutrition Patient General Information Nutritional Screening Moderate Risk Diagnosis Dysfunctional AV shunt Pertinent Medical Hx/Surgical Hx HTN, diabetes, chronic renal failure on dialysis, CVA, left hemiparesis Subjective Information Patient on HD. NPO for surgery today, Current Diet Order/ Nutrition Support NPO Patient / S.O Not Indicated Pertinent Medications Lipitor, D5-0.45NS @60ml/hr, Iron, Folate, protonix Pertinent Labs (06/19) BUN 58, Cr 6.2, Albumin 3.4 Nutritional Hx/Data Height 1.68 m Height (Calculated Centimeters) 167.6 Current Weight (lbs) 56.245 kg Weight (Calculated Kilograms) 56.2 Weight (Calculated Grams) 94322.5 [place] Body Weight 142 % [place] Body Weight 87 Body Mass Index (BMI) 20.0 Recent Weight Change No Weight Status Approriate GI Symptoms GI Symptoms None Last BM 06/18 x 1 Difficult in: None Food Allergies No Cultural/Ethnic/Denominational Belief none indicated Usual diet at home unknown Skin Integrity/Comment: Manuelito Rosales, normal Estimated Nutritional Goals BEE in Kcals: Adj wt of IBW Calories/Kcals/Kg UBW 64.5kg Kcals Calculated ~4749-2838 kcal/day (25-30 kcal/kg) Protein: Adj wt of IBW Protein g/k-1.2 gm/kg using IBW Protein Calculated ~65-75gm/day Fluid: ml Per MD d/t dialysis Nutritional Problem 1. Problem Problem Inadequate energy intake related to Etiology withholding diet at this time aeb Signs/Symptoms: NPO status Intervention/Recommendation Comments 1. When medically appropriate, start oral diet Renal diet 70gm protein. Expected Outcomes/Goals Expected Outcomes/Goals Patient resumes oral diet in 1 day, nutrition related labs WNL, skin intact F/U HR 06/21-
[2018-06-20] MEDS: Atorvastatin Calcium 10 MG TAB PO SCH (20:10)
--- NOTE | 2018-06-21 04:53 | Progress Notes ---
DATE: 06/20/2018 SURGICAL PROGRESS NOTE TIME: 10:55 p.m. SUBJECTIVE: The patient is afebrile. OBJECTIVE: VITAL SIGNS: Otherwise stable. GENERAL: Awake, follows commands, in no acute distress. The right IJ hemodialysis catheter is intact with no bleeding, hematoma or signs of infection. The left neck and chest wall sites show no evidence of active bleeding or hematoma or ecchymosis. CHEST: Clear to auscultation bilaterally. CARDIAC: Regular rhythm and rate. ABDOMEN: Otherwise soft, nontender, nondistended. The patient was able to get dialysis earlier today. No reported problems with the catheter. LABORATORY DATA: The white blood cell count today was 6.9, H and H is 8.8 and 26.5 and platelet count is 275. Potassium was 3.7, BUN and creatinine are 26 and 4.0. The chest x-ray post-procedure revealed new vascular catheter placement as noted, tip is in the region of the SVC. No pneumothorax is seen. IMPRESSION AND PLAN: Stable after right IJ hemodialysis catheter placement, was able to get successful dialysis with improvement of labs. Chest x-ray confirms placement. No sequela of the left-sided attempt. The patient is stable for discharge from a surgical standpoint, would recommend the patient follow up with the vascular surgeon regarding declotting and revision of the right arm AV fistula for long-term hemodialysis access. JOB# [id number]
[2018-06-21] MEDS: Ferrous Sulfate 325 MG TAB PO SCH (08:13)
--- NOTE | 2018-06-21 10:03 | Internal Medicine Prog Note ---
Internal Medicine Subjective - Subjective Service Date: 06/21/18 Patient seen and examined:: with staff Patient is:: awake, confused, other (dialysis catheter recently inserted.) Patient Complaints of:: other (weakness.) Per staff patient has:: no adverse event, no episodes of fall, tolerating meds Internal Medicine Objective - Results Result Diagrams: 06/20/18 06:00 06/20/18 06:00 Recent Labs: Laboratory Last Values WBC 6.9 Th/cmm (4.8-10.8) 06/20/18 06:00 RBC 2.81 Mil/cmm (3.80-5.80) L 06/20/18 06:00 Hgb 8.8 gm/dL (12-16) L 06/20/18 06:00 Hct 26.5 % (41.0-60) L 06/20/18 06:00 MCV 94.0 fl (80-99) 06/20/18 06:00 MCH 31.3 pg (27.0-31.0) H 06/20/18 06:00 MCHC Differential 33.3 pg (28.0-36.0) 06/20/18 06:00 RDW 12.6 % (11.5-20.0) 06/20/18 06:00 Plt Count 275 Th/cmm (150-400) 06/20/18 06:00 MPV 6.9 fl 06/20/18 06:00 Neutrophils % 70.2 % (40.0-80.0) 06/20/18 06:00 Lymphocytes % 16.0 % (20.0-50.0) L 06/20/18 06:00 Monocytes % 7.8 % (2.0-10.0) 06/20/18 06:00 Eosinophils % 4.3 % (0.0-5.0) 06/20/18 06:00 Basophils % 1.7 % (0.0-2.0) 06/20/18 06:00 PT 10.4 SECONDS (9.5-11.5) 06/16/18 05:30 INR 1.00 (0.5-1.4) 06/16/18 05:30 PTT (Actin FS) 25.0 SECONDS (26.0-38.0) L 06/16/18 05:30 Sodium 137 mEq/L (136-145) 06/20/18 06:00 Potassium 3.7 mEq/L (3.5-5.1) 06/20/18 06:00 Chloride 102 mEq/L (98-107) 06/20/18 06:00 Carbon Dioxide 28.2 mEq/L (21.0-31.0) 06/20/18 06:00 Anion Gap 10.5 (7.0-16.0) 06/20/18 06:00 BUN 26 mg/dL (7-25) H 06/20/18 06:00 Creatinine 4.0 mg/dL (0.7-1.3) H 06/20/18 06:00 Est GFR ( Amer) TNP 06/20/18 06:00 Est GFR (Non-Af Amer) TNP 06/20/18 06:00 BUN/Creatinine Ratio 6.5 06/20/18 06:00 Glucose 98 mg/dL (70-105) 06/20/18 06:00 Whole Bld Lactic Acid 1.25 mmol/L (0.60-1.99) 06/15/18 15:00 Calcium 8.9 mg/dL (8.6-10.3) 06/20/18 06:00 Total Bilirubin 0.3 mg/dL (0.3-1.0) 06/19/18 07:51 AST 13 U/L (13-39) 06/19/18 07:51 ALT 6 U/L (7-52) L 06/19/18 07:51 Alkaline Phosphatase 140 U/L (34-104) H 06/19/18 07:51 Creatine Kinase 22 U/L (30-223) L 06/15/18 15:00 Troponin I 0.01 ng/mL (0.01-0.05) 06/15/18 15:00 Total Protein 7.1 gm/dL (6.0-8.3) 06/19/18 07:51 Albumin 3.4 gm/dL (4.2-5.5) L 06/19/18 07:51 Globulin 3.7 gm/dL 06/19/18 07:51 Albumin/Globulin Ratio 0.9 (1.0-1.8) L 06/19/18 07:51 Urine Source MIDSTREAM 06/15/18 16:40 Urine Color YELLOW 06/15/18 16:40 Urine Clarity CLEAR (CLEAR) 06/15/18 16:40 Urine pH 7.5 (4.6 - 8.0) 06/15/18 16:40 Ur Specific [place] 1.015 (1.005-1.030) 06/15/18 16:40 Urine Protein 100 mg/dL (NEGATIVE) H 06/15/18 16:40 Urine Glucose (UA) NEGATIVE mg/dL (NEGATIVE) 06/15/18 16:40 Urine Ketones NEGATIVE mg/dL (NEGATIVE) 06/15/18 16:40 Urine Blood NEGATIVE (NEGATIVE) 06/15/18 16:40 Urine Nitrate NEGATIVE (NEGATIVE) 06/15/18 16:40 Urine Bilirubin NEGATIVE (NEGATIVE) 06/15/18 16:40 Urine Urobilinogen 0.2 E.U./dL (0.2 - 1.0) 06/15/18 16:40 Ur Leukocyte Esterase TRACE (NEGATIVE) H 06/15/18 16:40 Urine RBC 0-2 /hpf (0-5) H 06/15/18 16:40 Urine WBC 2-5 /hpf (0-5) 06/15/18 16:40 Ur Epithelial Cells FEW /lpf (FEW) 06/15/18 16:40 Urine Bacteria FEW /hpf (NONE SEEN) 06/15/18 16:40 Blood Type O POSITIVE 06/17/18 22:15 Antibody Screen NEGATIVE 06/17/18 22:15 - Physical Exam Vitals and I&O: Vital Signs Temp 96.7 F 06/21/18 07:51 Pulse 87 06/21/18 08:14 Resp 18 06/21/18 08:00 BP 109/79 06/21/18 08:14 Pulse Ox 99 06/21/18 07:51 Intake & Output 06/20/18 06/21/18 06/21/18 18:59 06:59 18:59 Intake Total 250 220 Output Total 3 Balance 250 217 Weight (lbs) 68.039 kg 61.689 kg Intake: Oral 250 220 Output: Urine 3 Other: # Voids 2 # Bowel Movements 1 Weight Source Bedscale Estimated Active Medications: Current Medications Atorvastatin Calcium (Lipitor) 10 mg PO HS [facility]; Protocol Stop: 08/15/18 20:59 Last Admin: 06/20/18 20:10 Dose: 10 mg Docusate Sodium (Colace) 250 mg PO DAILY [facility] Stop: 08/16/18 08:59 Last Admin: 06/21/18 08:13 Dose: 250 mg Donepezil HCl (Aricept) 5 mg PO DAILY [facility] Stop: 08/16/18 08:59 Last Admin: 06/21/18 08:13 Dose: 5 mg Ferrous Sulfate (Iron) 325 mg PO BID [facility] Stop: 08/16/18 08:59 Last Admin: 06/21/18 08:13 Dose: 325 mg Finasteride (Proscar) 5 mg PO DAILY [facility]; Protocol Stop: 08/16/18 08:59 Last Admin: 06/21/18 08:13 Dose: 5 mg Folic Acid (Folate) 1 mg PO DAILY [facility] Stop: 08/16/18 08:59 Last Admin: 06/21/18 08:13 Dose: 1 mg Albumin Human (Albuminar 25%) 25 gm in 100 mls @ 50 mls/hr IV PRN PRN PRN Reason: BP Support During HD Metoprolol Tartrate (Lopressor) 25 mg PO DAILY [facility] Stop: 08/19/18 08:59 Last Admin: 06/21/18 08:14 Dose: 25 mg Morphine Sulfate (Morphine) 1 mg IVP Q4HR PRN PRN Reason: Pain (Moderate) Stop: 08/19/18 06:38 Last Admin: 06/20/18 08:50 Dose: 1 mg Morphine Sulfate (Morphine) 2 mg IVP Q4HR PRN PRN Reason: Pain (Severe) Stop: 08/19/18 06:39 Pantoprazole Sodium (Protonix) 40 mg IVP DAILY [facility] Stop: 08/18/18 12:29 Last Admin: 06/21/18 08:09 Dose: 40 mg Tamsulosin HCl (Flomax) 0.4 mg PO BID [facility] Stop: 08/16/18 08:59 Last Admin: 06/21/18 08:13 Dose: 0.4 mg General: weak, alert HEENT: NC/AT, PERRLA Neck: Supple Lungs: CTAB Cardiovascular: RRR, Normal S1, Normal S2, without murmur Extremities: excoriation Neurological: no change - Procedures Procedures: Procedures Procedure Code Date BYPASS RIGHT BRACHIAL ARTERY TO UP ARM VEIN, OPEN APPROACH [id number] 12/10/17 EXTIRPATION OF MATTER FROM R BRACH ART, OPEN APPROACH [id number] 06/10/18 FLUOROSCOPY OF R BRACHIOCEPH A USING L OSM CONTRAST [id number] 06/10/18 FLUOROSCOPY OF RIGHT HEART USING LOW OSMOLAR CONTRAST [id number] 12/10/17 INSERTION OF INFUSION DEV INTO SUP VENA CAVA, PERC APPROACH [id number] 10/31/17 INSERTION OF INFUSION DEVICE INTO R ATRIUM, PERC APPROACH [id number] 12/10/17 PERFORMANCE OF URINARY FILTRATION, <6 HRS/DAY [id number] 06/10/18 REMOVAL OF INFUSION DEVICE FROM UPPER VEIN, BEAUTY ARTIST APPROACH [id number] 10/31/17 ULTRASONOGRAPHY OF SUPERIOR VENA CAVA, GUIDANCE [id number] 10/31/17 Internal Medicine Assmt/Plan - Assessment Assessment: catheter dysfunction esrd anemia generalized weakness htn cad hemiparesis - Plan Plan: Monitor labs Continue present meds as directed Followup with Vascular Surgeon Fall precaution on HD cpm Nutritional Asmnt/Malnutr-PDOC - Dietary Evaluation Malnutrition Findings (Please click <Entered> for more info): Nutritional Asmnt/Malnutrition Start: 06/16/18 11: 21 Text: Status: Complete Freq: Protocol: Document 06/19/18 11:26 MMULHERN (Rec: 06/19/18 11:38 MMULHERN JOSH- FNS1) Nutritional Asmnt/Malnutrition Patient General Information Nutritional Screening Moderate Risk Diagnosis Dysfunctional AV shunt Pertinent Medical Hx/Surgical Hx HTN, diabetes, chronic renal failure on dialysis, CVA, left hemiparesis Subjective Information Patient on HD. NPO for surgery today, Current Diet Order/ Nutrition Support NPO Patient / S.O Not Indicated Pertinent Medications Lipitor, D5-0.45NS @60ml/hr, Iron, Folate, protonix Pertinent Labs (06/19) BUN 58, Cr 6.2, Albumin 3.4 Nutritional Hx/Data Height 1.68 m Height (Calculated Centimeters) 167.6 Current Weight (lbs) 56.245 kg Weight (Calculated Kilograms) 56.2 Weight (Calculated Grams) 22283.5 [place] Body Weight 142 % [place] Body Weight 87 Body Mass Index (BMI) 20.0 Recent Weight Change No Weight Status Approriate GI Symptoms GI Symptoms None Last BM 06/18 x 1 Difficult in: None Food Allergies No Cultural/Ethnic/Taoist Belief none indicated Usual diet at home unknown Skin Integrity/Comment: Manuelito 12, normal Estimated Nutritional Goals BEE in Kcals: Adj wt of IBW Calories/Kcals/Kg UBW 64.5kg Kcals Calculated ~6954-0921 kcal/day (25-30 kcal/kg) Protein: Adj wt of IBW Protein g/k-1.2 gm/kg using IBW Protein Calculated ~65-75gm/day Fluid: ml Per MD d/t dialysis Nutritional Problem 1. Problem Problem Inadequate energy intake related to Etiology withholding diet at this time aeb Signs/Symptoms: NPO status Intervention/Recommendation Comments 1. When medically appropriate, start oral diet Renal diet 70gm protein. Expected Outcomes/Goals Expected Outcomes/Goals Patient resumes oral diet in 1 day, nutrition related labs WNL, skin intact F/U HR 06/21-
--- NOTE | 2018-06-21 14:12 | General Progress Note ---
Subjective - Review of Systems Service Date: 06/21/18 Subjective: alert, verbal, confused Objective - Results Result Diagrams: 06/20/18 06:00 06/20/18 06:00 Recent Labs: Laboratory Last Values WBC 6.9 Th/cmm (4.8-10.8) 06/20/18 06:00 RBC 2.81 Mil/cmm (3.80-5.80) L 06/20/18 06:00 Hgb 8.8 gm/dL (12-16) L 06/20/18 06:00 Hct 26.5 % (41.0-60) L 06/20/18 06:00 MCV 94.0 fl (80-99) 06/20/18 06:00 MCH 31.3 pg (27.0-31.0) H 06/20/18 06:00 MCHC Differential 33.3 pg (28.0-36.0) 06/20/18 06:00 RDW 12.6 % (11.5-20.0) 06/20/18 06:00 Plt Count 275 Th/cmm (150-400) 06/20/18 06:00 MPV 6.9 fl 06/20/18 06:00 Neutrophils % 70.2 % (40.0-80.0) 06/20/18 06:00 Lymphocytes % 16.0 % (20.0-50.0) L 06/20/18 06:00 Monocytes % 7.8 % (2.0-10.0) 06/20/18 06:00 Eosinophils % 4.3 % (0.0-5.0) 06/20/18 06:00 Basophils % 1.7 % (0.0-2.0) 06/20/18 06:00 PT 10.4 SECONDS (9.5-11.5) 06/16/18 05:30 INR 1.00 (0.5-1.4) 06/16/18 05:30 PTT (Actin FS) 25.0 SECONDS (26.0-38.0) L 06/16/18 05:30 Sodium 137 mEq/L (136-145) 06/20/18 06:00 Potassium 3.7 mEq/L (3.5-5.1) 06/20/18 06:00 Chloride 102 mEq/L (98-107) 06/20/18 06:00 Carbon Dioxide 28.2 mEq/L (21.0-31.0) 06/20/18 06:00 Anion Gap 10.5 (7.0-16.0) 06/20/18 06:00 BUN 26 mg/dL (7-25) H 06/20/18 06:00 Creatinine 4.0 mg/dL (0.7-1.3) H 06/20/18 06:00 Est GFR ( Amer) TNP 06/20/18 06:00 Est GFR (Non-Af Amer) TNP 06/20/18 06:00 BUN/Creatinine Ratio 6.5 06/20/18 06:00 Glucose 98 mg/dL (70-105) 06/20/18 06:00 Whole Bld Lactic Acid 1.25 mmol/L (0.60-1.99) 06/15/18 15:00 Calcium 8.9 mg/dL (8.6-10.3) 06/20/18 06:00 Total Bilirubin 0.3 mg/dL (0.3-1.0) 06/19/18 07:51 AST 13 U/L (13-39) 06/19/18 07:51 ALT 6 U/L (7-52) L 06/19/18 07:51 Alkaline Phosphatase 140 U/L (34-104) H 06/19/18 07:51 Creatine Kinase 22 U/L (30-223) L 06/15/18 15:00 Troponin I 0.01 ng/mL (0.01-0.05) 06/15/18 15:00 Total Protein 7.1 gm/dL (6.0-8.3) 06/19/18 07:51 Albumin 3.4 gm/dL (4.2-5.5) L 06/19/18 07:51 Globulin 3.7 gm/dL 06/19/18 07:51 Albumin/Globulin Ratio 0.9 (1.0-1.8) L 06/19/18 07:51 Urine Source MIDSTREAM 06/15/18 16:40 Urine Color YELLOW 06/15/18 16:40 Urine Clarity CLEAR (CLEAR) 06/15/18 16:40 Urine pH 7.5 (4.6 - 8.0) 06/15/18 16:40 Ur Specific [place] 1.015 (1.005-1.030) 06/15/18 16:40 Urine Protein 100 mg/dL (NEGATIVE) H 06/15/18 16:40 Urine Glucose (UA) NEGATIVE mg/dL (NEGATIVE) 06/15/18 16:40 Urine Ketones NEGATIVE mg/dL (NEGATIVE) 06/15/18 16:40 Urine Blood NEGATIVE (NEGATIVE) 06/15/18 16:40 Urine Nitrate NEGATIVE (NEGATIVE) 06/15/18 16:40 Urine Bilirubin NEGATIVE (NEGATIVE) 06/15/18 16:40 Urine Urobilinogen 0.2 E.U./dL (0.2 - 1.0) 06/15/18 16:40 Ur Leukocyte Esterase TRACE (NEGATIVE) H 06/15/18 16:40 Urine RBC 0-2 /hpf (0-5) H 06/15/18 16:40 Urine WBC 2-5 /hpf (0-5) 06/15/18 16:40 Ur Epithelial Cells FEW /lpf (FEW) 06/15/18 16:40 Urine Bacteria FEW /hpf (NONE SEEN) 06/15/18 16:40 Blood Type O POSITIVE 06/17/18 22:15 Antibody Screen NEGATIVE 06/17/18 22:15 - Physical Exam Vitals and I&O: Vital Signs Temp 97.1 F 06/21/18 12:31 Pulse 80 06/21/18 12:31 Resp 18 06/21/18 12:31 BP 110/60 06/21/18 12:31 Pulse Ox 99 06/21/18 12:31 Intake & Output 06/20/18 06/21/18 06/21/18 18:59 06:59 18:59 Intake Total 250 220 Output Total 3 Balance 250 217 Weight (lbs) 68.039 kg 61.689 kg Intake: Oral 250 220 Output: Urine 3 Other: # Voids 2 # Bowel Movements 1 Weight Source Bedscale Estimated Active Medications: Current Medications Atorvastatin Calcium (Lipitor) 10 mg PO [facility]; Protocol Stop: 08/15/18 20:59 Last Admin: 06/20/18 20:10 Dose: 10 mg Docusate Sodium (Colace) 250 mg PO DAILY [facility] Stop: 08/16/18 08:59 Last Admin: 06/21/18 08:13 Dose: 250 mg Donepezil HCl (Aricept) 5 mg PO DAILY [facility] Stop: 08/16/18 08:59 Last Admin: 06/21/18 08:13 Dose: 5 mg Ferrous Sulfate (Iron) 325 mg PO BID [facility] Stop: 08/16/18 08:59 Last Admin: 06/21/18 08:13 Dose: 325 mg Finasteride (Proscar) 5 mg PO DAILY [facility]; Protocol Stop: 08/16/18 08:59 Last Admin: 06/21/18 08:13 Dose: 5 mg Folic Acid (Folate) 1 mg PO DAILY [facility] Stop: 08/16/18 08:59 Last Admin: 06/21/18 08:13 Dose: 1 mg Albumin Human (Albuminar 25%) 25 gm in 100 mls @ 50 mls/hr IV PRN PRN PRN Reason: BP Support During HD Metoprolol Tartrate (Lopressor) 25 mg PO DAILY [facility] Stop: 08/21/18 08:59 Morphine Sulfate (Morphine) 1 mg IVP Q4HR PRN PRN Reason: Pain (Moderate) Stop: 08/19/18 06:38 Last Admin: 06/20/18 08:50 Dose: 1 mg Morphine Sulfate (Morphine) 2 mg IVP Q4HR PRN PRN Reason: Pain (Severe) Stop: 08/19/18 06:39 Pantoprazole Sodium (Protonix) 40 mg IVP DAILY [facility] Stop: 08/18/18 12:29 Last Admin: 06/21/18 08:09 Dose: 40 mg Tamsulosin HCl (Flomax) 0.4 mg PO BID [facility] Stop: 08/16/18 08:59 Last Admin: 06/21/18 08:13 Dose: 0.4 mg General: Alert, No acute distress HEENT: Atraumatic, PERRLA, Mucous membr. moist/pink Neck: Supple Cardiovascular: Regular rate, Normal S1, Normal S2 Lungs: Clear to auscultation Abdomen: Bowel sounds, Soft Extremities: no Edema Neurological: Sensation intact Skin: no Rash Psych/Mental Status: Mood NL - Procedures Procedures: Procedures Procedure Code Date BYPASS RIGHT BRACHIAL ARTERY TO UP ARM VEIN, OPEN APPROACH [id number] 12/10/17 EXTIRPATION OF MATTER FROM R BRACH ART, OPEN APPROACH [id number] 06/10/18 FLUOROSCOPY OF R BRACHIOCEPH A USING L OSM CONTRAST [id number] 06/10/18 FLUOROSCOPY OF RIGHT HEART USING LOW OSMOLAR CONTRAST [id number] 12/10/17 INSERTION OF INFUSION DEV INTO SUP VENA CAVA, PERC APPROACH [id number] 10/31/17 INSERTION OF INFUSION DEVICE INTO R ATRIUM, PERC APPROACH [id number] 12/10/17 PERFORMANCE OF URINARY FILTRATION, <6 HRS/DAY [id number] 06/10/18 REMOVAL OF INFUSION DEVICE FROM UPPER VEIN, CARROT HARVESTER APPROACH [id number] 10/31/17 ULTRASONOGRAPHY OF SUPERIOR VENA CAVA, GUIDANCE [id number] 10/31/17 Assessment/Plan - Problem List Patient Problems: All Active Problems DYSFUNCTIONING DIALYSIS GRAFT (Acute) - Assessment Assessment: ESRD on HD Reclotted Right AVF Ess Htn w/ CKD Dyslipidemia BPH Psychosis S/P Placement of Perma Cath - Plan Plan: Lab - Result Diagrams 06/16/18 05:30 06/16/18 05:30 Current Medications Atorvastatin Calcium (Lipitor) 10 mg PO HS [facility]; Protocol Stop: 08/15/18 20:59 Last Admin: 06/16/18 21:50 Dose: Not Given Docusate Sodium (Colace) 250 mg PO DAILY [facility] Stop: 08/16/18 08:59 Last Admin: 06/17/18 09:29 Dose: 250 mg Donepezil HCl (Aricept) 5 mg PO DAILY [facility] Stop: 08/16/18 08:59 Last Admin: 06/17/18 09:29 Dose: 5 mg Ferrous Sulfate (Iron) 325 mg PO BID [facility] Stop: 08/16/18 08:59 Last Admin: 06/17/18 09:29 Dose: 325 mg Finasteride (Proscar) 5 mg PO DAILY [facility]; Protocol Stop: 08/16/18 08:59 Last Admin: 06/17/18 09:29 Dose: 5 mg Folic Acid (Folate) 1 mg PO DAILY [facility] Stop: 08/16/18 08:59 Last Admin: 06/17/18 09:29 Dose: 1 mg Heparin Sodium (Porcine) (Heparin) 2,000 units HD UD [facility] Stop: 06/18/18 00:00 Last Admin: 06/17/18 09:29 Dose: Not Given Albumin Human (Albuminar 25%) 25 gm in 100 mls @ 50 mls/hr IV PRN PRN PRN Reason: BP Support During HD Metoprolol Tartrate (Lopressor) 25 mg PO DAILY [facility] Stop: 08/16/18 08:59 Last Admin: 06/17/18 09:29 Dose: 25 mg Pantoprazole Sodium (Protonix) 40 mg PO DAILY [facility] Stop: 08/16/18 08:59 Last Admin: 06/17/18 09:29 Dose: 40 mg Tamsulosin HCl (Flomax) 0.4 mg PO BID [facility] Stop: 08/16/18 08:59 Last Admin: 06/17/18 09:29 Dose: 0.4 mg Lab - Result Diagrams 06/20/18 06:00 06/20/18 06:00 pt. had placement of Perma Cath he was dialyzed Sat & tolerated it well possible DC today Nutritional Asmnt/Malnutr-PDOC - Dietary Evaluation Malnutrition Findings (Please click <Entered> for more info): Nutritional Asmnt/Malnutrition Start: 06/16/18 11: 21 Text: Status: Complete Freq: Protocol: Document 06/19/18 11:26 EMEKA (Rec: 06/19/18 11:38 MMMANUEL MORENO- FNS1) Nutritional Asmnt/Malnutrition Patient General Information Nutritional Screening Moderate Risk Diagnosis Dysfunctional AV shunt Pertinent Medical Hx/Surgical Hx HTN, diabetes, chronic renal failure on dialysis, CVA, left hemiparesis Subjective Information Patient on HD. NPO for surgery today, Current Diet Order/ Nutrition Support NPO Patient / S.O Not Indicated Pertinent Medications Lipitor, D5-0.45NS @60ml/hr, Iron, Folate, protonix Pertinent Labs (06/19) BUN 58, Cr 6.2, Albumin 3.4 Nutritional Hx/Data Height 1.68 m Height (Calculated Centimeters) 167.6 Current Weight (lbs) 56.245 kg Weight (Calculated Kilograms) 56.2 Weight (Calculated Grams) 84607.5 [place] Body Weight 142 % [place] Body Weight 87 Body Mass Index (BMI) 20.0 Recent Weight Change No Weight Status Approriate GI Symptoms GI Symptoms None Last BM 06/18 x 1 Difficult in: None Food Allergies No Cultural/Ethnic/Taoist Belief none indicated Usual diet at home unknown Skin Integrity/Comment: Manuelito Rosales, normal Estimated Nutritional Goals BEE in Kcals: Adj wt of IBW Calories/Kcals/Kg UBW 64.5kg Kcals Calculated ~6587-9084 kcal/day (25-30 kcal/kg) Protein: Adj wt of IBW Protein g/k-1.2 gm/kg using IBW Protein Calculated ~65-75gm/day Fluid: ml Per MD d/t dialysis Nutritional Problem 1. Problem Problem Inadequate energy intake related to Etiology withholding diet at this time aeb Signs/Symptoms: NPO status Intervention/Recommendation Comments 1. When medically appropriate, start oral diet Renal diet 70gm protein. Expected Outcomes/Goals Expected Outcomes/Goals Patient resumes oral diet in 1 day, nutrition related labs WNL, skin intact F/U HR 06/21-
== END 2018-06-21 14:15 | disposition home or self-care (01) | DRG 280 ==
LOC: ER 14:29 → MSI 17:48
PROVIDERS: ADMIT Internal Medicine; ATTEND Internal Medicine
PROC: 02HV33Z Insertion of Infusion Device into Superior Vena Cava, Percutaneous Approach (ICD-10-PCS; principal; 2018-06-18)
PROC: B548ZZA Ultrasonography of Superior Vena Cava, Guidance (ICD-10-PCS; 2018-06-18)
PROC: 0JH63XZ Insertion of Tunneled Vascular Access Device into Chest Subcutaneous Tissue and Fascia, Percutaneous Approach (ICD-10-PCS; 2018-06-19)
PROC: 02HV33Z Insertion of Infusion Device into Superior Vena Cava, Percutaneous Approach (ICD-10-PCS; 2018-06-19)
PROC: B5181ZA Fluoroscopy of Superior Vena Cava using Low Osmolar Contrast, Guidance (ICD-10-PCS; 2018-06-19)
PROC: B548ZZA Ultrasonography of Superior Vena Cava, Guidance (ICD-10-PCS; 2018-06-19)
PROC: 5A1D70Z Performance of Urinary Filtration, Intermittent, Less than 6 Hours Per Day (ICD-10-PCS; 2018-06-19)
DX: T82.818A Embolism due to vascular prosthetic devices, implants and grafts, initial encounter (principal); N18.6 End stage renal disease; I21.9 Acute myocardial infarction, unspecified; I12.0 Hypertensive chronic kidney disease with stage 5 chronic kidney disease or end stage renal disease; I69.354 Hemiplegia and hemiparesis following cerebral infarction affecting left non-dominant side; E78.5 Hyperlipidemia, unspecified; D64.9 Anemia, unspecified; I25.9 Chronic ischemic heart disease, unspecified; N40.0 Benign prostatic hyperplasia without lower urinary tract symptoms; F29 Unspecified psychosis not due to a substance or known physiological condition; E11.22 Type 2 diabetes mellitus with diabetic chronic kidney disease; I25.10 Atherosclerotic heart disease of native coronary artery without angina pectoris; Y83.8 Other surgical procedures as the cause of abnormal reaction of the patient, or of later complication, without mention of misadventure at the time of the procedure; Y92.89 Other specified places as the place of occurrence of the external cause
CPT/HCPCS: 36415-UA; 71045-TC; 76604; 77001-TC; 80048-TC; 80053-TC; 81001-TC; 82550-TC; 83605; 84484-TC; 85025-TC; 85610-TC; 85730-TC; 86850-TC; 86900-TC; 86901-TC; 90937; 93005; C9113; J1644; J2001; J2270; J2704; J3010; J7030; Z7610